=== PATIENT | female | born 1945 | race Caucasian/White ===

== ENCOUNTER → 2021-05-03 19:36 | Outpatient (CLI) | payer MEDICARE, SELFPAY | PROVIDERS: PCP Internal Medicine; Referring Provider Psychiatry & Neurology Sleep Medicine; Visit Provider Psychiatry & Neurology Sleep Medicine | DX: G47.33 Obstructive sleep apnea (adult) (pediatric) (principal) | CPT/HCPCS: 95810 ==

== ENCOUNTER → 2021-10-21 | Outpatient (CLI) | payer MEDICARE, SELFPAY ==
[2021-10-21 17:03] LABS: Absolute Neutrophil Count 5.1 X10^3/uL (2.0-7.7); Basophil# 0.02 X10^3/uL; Basophil% 0.2 % (0-1); Eosinophil# 0.18 X10^3/uL; Eosinophils% 2.2 % (0-5); Hematocrit 41.9 % (37-47); Hemoglobin 13.7 g/dL (12.0-15.0); Lymphocyte % 26.2 % (19-41); Mean Corp Hgb Conc 32.7 g/dL (32-36); Mean Corpuscular Hgb 29.4 pg (27.0-32.0); Mean Corpuscular Volume 89.9 fL (81-99); Mean Platelet Vol. 9.7 fl (6.2-12.0); Monocyte% 7.5 % (0-10); NRBC Flagged by Analyzer 0 % (0-5); Neutrophil # 5.11 X10^3/uL (2.7-7.7); Neutrophil % 63.7 % (47-70); Platelet Count 308 K/mm3 (150-450); RBC Distribution Width CV 13.6 % (11.6-14.6); RBC Distribution Width SD 44.4 fl (35.1-43.9); Red Blood Count 4.66 M/mm3 (4.2-5.4)
[2021-10-21 17:08] LABS: Prothrombin Time (Protime)PT. 12.6 SECONDS (11.7-14.9)
[2021-10-21 17:09] LABS: Erythrocyte Sedimentation Rate 15 mm/hr (0-30)
[2021-10-21 17:21] LABS: Hemoglobin A1c 5.6 % (3.8-5.6)
[2021-10-21 17:32] LABS: AST(SGOT) 16 U/L (15-37); Alanine Aminotransfer ALT/SGPT 25 U/L (13-56); Albumin, Serum 3.6 g/dL (3.2-5.0); Alkaline Phosphatase 93 U/L (45-117); Anion Gap 2 (5-15); BUN 13 mg/dL (7-18); BUN/Creat Ratio 14.3 RATIO (10-20); CRP 4.64 mg/L (0.0-3.0); Calcium,Total 9.1 mg/dL (8.5-10.1); Chloride 105 mmol/L (98-107); Creatinine, Serum 0.91 mg/dL (0.55-1.02); EST Glomerular Filtration Rate 64 mL/min (>60); Est Glom Filt Rate - Afr Amer 77 mL/min (>60); Ferritin 36 ng/mL (8-252); Globulin 3.6 g/dL (2.2-4.2); Glucose 98 mg/dL (74-106); LDH 183 U/L (84-246); Potassium 4.3 mmol/L (3.5-5.1); Protein, Total 7.2 g/dL (6.4-8.2); Sodium Level 138 mmol/L (136-145)
[2021-10-21 17:33] LABS: Ammonia < 10.0 umol/L (11-32)
[2021-10-22 00:07] LABS: HIV - WCH Non-Reactive (Nonreactive)
[2021-10-25 13:07] LABS: Anti-Centromere B Ab <0.2 AI (0.0-0.9); Anti-Chromatin <0.2 AI (0.0-0.9); Anti-Jo <0.2 AI (0.0-0.9); Anti-Scleroderma-70 AB <0.2 AI (0.0-0.9); RNP Ab 0.4 AI (0.0-0.9); SJOGREN'S Anti-SS-A test < 0.2 AI (0.0-0.9); SJOGREN'S Anti-SS-B test < 0.2 AI (0.0-0.9); Smith Ab <0.2 AI (0.0-0.9)
[2021-10-25 20:03] LABS: Anti-Mitochondrial AB <20.0 Units (0.0-20.0); Anti-dsDNA Ab <1 IU/mL (0-9)
[2021-10-26 21:07] LABS: Angiotensin Convert Enzyme 39 U/L (14-82); Ceruloplasmin 30.2 mg/dL (19.0-39.0); Cytoplasmic Ab (C-ANCA) <1:20 titer (Neg:<1:20); HEPATITIS B SURFACE AG Negative (Negative); Hep C Antibodies <0.1 s/co ratio (0.0-0.9); Hepatitis A IgM Antibody Negative (Negative); Hepatitis B Core AB IgM Negative (Negative)
[2021-10-27 10:53] LABS: Anti-Smooth Muscle ABS 5 Units (0-19); Copper, Serum or Plasma 134 ug/dL (80-158); Haptoglobin 181 mg/dL (42-346); Perinuclear Ab (P-ANCA) <1:20 titer (Neg:<1:20)
== END | disposition home or self-care (01) ==
LOC: LAB 16:24
PROVIDERS: PCP Internal Medicine; Referring Provider Nurse Practitioner Adult Health; Visit Provider Nurse Practitioner Adult Health
DX: I85.00 Esophageal varices without bleeding (principal); E11.51 Type 2 diabetes mellitus with diabetic peripheral angiopathy without gangrene; I73.9 Peripheral vascular disease, unspecified; K76.0 Fatty (change of) liver, not elsewhere classified; I10 Essential (primary) hypertension; R19.7 Diarrhea, unspecified
CPT/HCPCS: 36415; 80053; 80074; 82140; 82164; 82390; 82525; 82728; 83010; 83036; 83516; 83615; 85025; 85610; 85652; 86140; 86225; 86235; 86256; 86703

== ENCOUNTER → 2021-10-29 | Outpatient (CLI) | payer MEDICARE, SELFPAY ==
--- NOTE | 2021-10-29 12:30 | CT_ITS ---
STUDY: CT ABDOMEN AND PELVIS WITH CONTRAST REASON FOR EXAM: Female, 76 years old. Lower abd pain, esophageal varices, diarrhea -- oral and IV RADIATION DOSAGE (If Supplied By Facility): CTDIvol = ( 16.45 ) mGy, DLP = ( 1010.70 ) mGycm TECHNIQUE: Transaxial images were obtained from the dome of the diaphragm to the symphysis pubis with oral contrast. Oral and amp; IV Readi-CAT and amp; 75mL Isovue-300 was administered. Sagittal and coronal images were reconstructed. Individualized dose optimization techniques were used for this CT. COMPARISON: None. FINDINGS: The visualized lung bases are unremarkable. Coronary artery calcification. Normal liver. The patient is status post cholecystectomy. There is a 1.1 cm x 1.6 cm splenic artery aneurysm with thick calcification. Normal spleen. There is diffuse atrophy of the pancreas. Normal bilateral adrenal glands. Normal right kidney. Normal left kidney. There is a small hiatal hernia. Normal small intestine. Normal colon. The appendix is visualized and appears normal. There is diffuse atherosclerotic calcification of the abdominal aorta and its major visceral branches, without a demonstrated aneurysm. Normal inferior vena cava. Normal retroperitoneum. Normal urinary bladder. There is absence of the uterus consistent with a prior hysterectomy. Normal abdominal wall. There are mild degenerative changes of the visualized lumbar spine. CT/Abdomen/Pelvis WITH Contrast IMPRESSION: Calcified splenic artery aneurysm. No varices are seen at this time. Electronically Signed: Virgilio Acuna MD at 13:48 EDT ,
== END | disposition home or self-care (01) ==
LOC: CT 12:29
PROVIDERS: PCP Internal Medicine; Referring Provider Nurse Practitioner Adult Health; Visit Provider Nurse Practitioner Adult Health
DX: R10.30 Lower abdominal pain, unspecified (principal); R68.81 Early satiety; R19.7 Diarrhea, unspecified
CPT/HCPCS: 74177; Q9967; A4216

== ENCOUNTER → 2021-11-09 | Outpatient (CLI) | payer MEDICARE, SELFPAY ==
--- NOTE | 2021-11-09 11:48 | NM_ITS ---
Gastric emptying study INDICATION: Early satiety, diabetes. TECHNIQUE: After the administration 1.1 mCi of technetium sulfur colloid in a meal of oatmeal orally, multiple scintigraphic images of the abdomen were obtained. Furthermore, counts were obtained in the gastric emptying curve was plotted. FINDINGS: There is normal uptake within the stomach and passes through the duodenum into the small bowel. After 1 hour, there is 55% gastric retention which is normal. T1 half is 62 minutes which is normal. NM/Gastric Emptying Study IMPRESSION: Normal gastric emptying. Electronically Signed: Luis Hernandez MD at 9:05 EDT ,
== END | disposition home or self-care (01) ==
LOC: NM 11:47
PROVIDERS: PCP Internal Medicine; Referring Provider Nurse Practitioner Adult Health; Visit Provider Nurse Practitioner Adult Health
DX: R10.30 Lower abdominal pain, unspecified (principal); R68.81 Early satiety
CPT/HCPCS: 78264; A9541

== ENCOUNTER → 2021-11-10 | Outpatient (CLI) | payer MEDICARE, SELFPAY ==
--- NOTE | 2021-11-10 09:13 | US_ITS ---
STUDY: ABDOMINAL ULTRASOUND - ELASTOGRAPHY REASON FOR VISIT: Female, 76 years old. Esophageal varices. TECHNIQUE: Liver stiffness measurements were obtained on a [employer] RS 85 ultrasound machine using a CA 1-7 probe following the SRU guidelines. 3 measurements were obtained using a 2-D-SWE method. The IQR/M was 11% suggesting a quality data set. TECHNICAL QUALITY: Adequate. COMPARISON: Comparison is made with prior study done earlier today. FINDINGS: Liver: There is no demonstrated mass lesion. Median liver stiffness measured 12.2 kPa. US/Elastography Parenchyma/Organ IMPRESSION: Liver stiffness measures 12.2 kPa compatible with F3-F4 (Moderate to severe liver fibrosis) Metavir score. Electronically Signed: Virgilio Acuna MD at 15:46 EDT ,
--- NOTE | 2021-11-10 09:13 | US_ITS ---
STUDY: ABDOMINAL ULTRASOUND - RIGHT UPPER QUADRANT REASON FOR VISIT: Female, 76 years old for elastography, esophageal varices on EGD TECHNIQUE: Ultrasound evaluation of the right upper quadrant was performed with real-time and static dougherty-scale imaging. TECHNICAL QUALITY: Adequate. COMPARISON: None. FINDINGS: Liver: The liver measures 15.2 cm. There is normal echogenicity of the liver. The bile ducts are within normal limits. There is hepatic color flow. The direction of portal flow is hepatopetal. There is no demonstrated mass lesion. Gallbladder: The patient is status post cholecystectomy. Common Bile Duct (C.B.D.): The common bile duct measures 5.6 mm. Pancreas: Normal size of the head, body and tail of the pancreas. There is increased echogenicity of the pancreas. There is no demonstrated pancreatic mass or cyst. Right Kidney: Normal size of the right kidney. The right kidney measures 11.2 cm x 5.5 cm x 4.5 cm. Normal renal cortex. The right cortex measures 1.0 cm. There is no demonstrated renal mass or cyst. There is no right hydronephrosis. Small amount of perinephric fluid. US/Abdomen Limited IMPRESSION: Status post cholecystectomy. Electronically Signed: Virgilio Acuna MD at 15:45 EDT ,
== END | disposition home or self-care (01) ==
LOC: US 09:09
PROVIDERS: PCP Internal Medicine; Visit Provider Nurse Practitioner Adult Health
DX: K76.0 Fatty (change of) liver, not elsewhere classified (principal); I85.00 Esophageal varices without bleeding
CPT/HCPCS: 76705; 76981

== ENCOUNTER → 2021-11-30 | Outpatient (CLI) | payer MEDICARE, SELFPAY ==
--- NOTE | 2021-11-30 07:17 | CT_ITS ---
STUDY: CT CHEST WITH CONTRAST REASON FOR EXAM: Female, 76 years old. Esophageal varices. Hypertension. RADIATION DOSAGE (If Supplied By Facility): CTDIvol = ( 11.52 ) mGy, DLP = ( 436.16 ) mGycm TECHNIQUE: Transaxial imaging was performed following intravenous administration of IV 100mL Isovue-300. Multiplanar coronal and sagittal images were reformatted. Individualized dose optimization techniques were used for this CT. COMPARISON: No relevant priors. FINDINGS: CHEST A 4.8 mm hypodensity in the lower pole left lobe of the thyroid. The lungs are normal. There is no demonstrated pleural abnormality. There are calcifications of the coronary arteries. Normal mediastinum. Normal hilar regions. Normal unenhanced pulmonary arteries. Normal aorta arch and descending thoracic aorta. There are multi-level degenerative changes of the thoracic spine. There is no demonstrated abnormality of the visualized upper abdomen. CT/Chest WITH Contrast IMPRESSION: No significant abnormality is seen. Electronically Signed: Virgilio Acuna MD at 9:33 EDT ,
[2021-11-30 07:51] LABS: CREATININE FINGERSTICK < 0.9 mg/dL (0.55-1.02); EGFR FINGERSTICK > 60.0000 mL/min (>60)
== END | disposition home or self-care (01) ==
LOC: CT 07:17
PROVIDERS: PCP Internal Medicine; Referring Provider Nurse Practitioner Adult Health; Visit Provider Nurse Practitioner Adult Health
DX: I85.00 Esophageal varices without bleeding (principal)
CPT/HCPCS: 71260; Q9967

== ENCOUNTER 2021-12-01 06:29 | Day surgery (SDC) | payer MEDICARE, SELFPAY ==
[2021-12-01] VITALS (7 sets, daily range): BP systolic 130–162; BP diastolic 58–89; PULSE 61–66; RESP 16; TEMP 36.3–36.7; O2SAT 92–97; BMI 34.4
--- NOTE | 2021-12-01 | ESO_PTH ---
PATIENT: NERI GUILLEN LOC: EN U#:[id number] AGE/SX: 76/F ROOM: RE12/01/[address]: Dr. Chucho Carlin DO : 1945 BED: DIS: 12/01/2021 SPEC #: [id number] RECD: 12/01/21 13:23 STATUS: OMAR PARVIN #: [id number] HEATHER: 12/01/21 00:[address]: Chucho Carlin DEPT: SURGICAL PATHOLOGY RECD BY: Isaias Veras ENTERED: 12/02/21 09:33 SP TYPE: JAVIER LEPE DR: MD Daysi Dee MD Tissues: Esophagus, NOS Procedures: Special Stain Group II Surgery Specimen Level IV Alcian Blue/PAS (control) HEADER OPERATION: EGD ([facility] [place]) PRE-OP DIAGNOSIS: Early satiety, lower abdominal pain, diarrhea, fatty liver, esophageal varices TISSUE SUBMITTED: Distal esophageal biopsy MICROSCOPIC DIAGNOSIS Distal esophagus, biopsy: Gastroesophageal junctional mucosa with mild chronic inflammation. No evidence of goblet cell metaplasia. See comment. AM:penny 12/03/2021 COMMENT Alcian blue/PAS stain with matched control supports the above diagnosis. MICROSCOPIC DESCRIPTION Slides are reviewed. GROSS DESCRIPTION Received in fixative is one container labeled with the patient's name and designated distal esophagus. The specimen consists of two irregular fragments of light adame soft tissue that in aggregate measure 0.5 x 0.5 x 0.1 cm. The specimen is totally submitted in one cassette. / AM:penny 12/02/2021 TC:3 CPT: 48336, 89789
[2021-12-01] MEDS: Lactated Ringers 1,000 ML 15 ML IV (07:06)
--- NOTE | 2021-12-01 07:31 | PCM.HP.BLA ---
History and Physical Date of Admission: 12/01/21 NERI GUILLEN, is a 76 F who presents to the office today for esophageal varices found on EGD by [facility] general surgeon Dr Moody on 07/07/2021.? EGD was done on 4 chronic GERD.? She also had screening colonoscopy as a 5-year follow-up for colon polyps.? No prior history of esophageal varices.? No history of liver disease. EGD report states normal first portion of the duodenum and second portion of the duodenum, erythematous mucosa in the antrum which was biopsied, Z-line irregular which was biopsied, and grade 1 esophageal varices in the mid esophagus.? I do not have biopsy report at this time.? Colonoscopy P prep was poor, nonbleeding internal and external hemorrhoids. Since the EGD she has had abd US done at [facility], it shows fatty liver, no splenomegaly She has multiple GI complaints at this time. Very long hx of GERD. She has been omeprazole x decades, takes it bid. Stomach contents come all the way up, especially when she lies down. Doesn't like any pressure on her throat, or feels like she is being choked. Metallic taste in mouth. Voice is raspy, can't sing soprano any longer. Has a chronic cough, dry or sometimes mucus. Gets sinus drainage. Has allergies. Gets substernal CP frequently as well as RUQ pain. Wakes up nausea every day, goes away once she starts eating. Hasn't had a gastric emptying study. She burps a lot. Has diagnosis of IBS. Severe cramping pain, across lower abd, every 2-3 days, resolves after BM, or resolves spontaneously, started in her 30s. Hasn't tried dicyclomine that she recalls. Currently has to strain to have BM. But normally has stools that are watery or loose. Can be after she eats, can be urgent. No melena or hematochezia. 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 Comorbidities include RA, psoriasis, fibromyalgia, GERD, HTN, migraines, hyperlipidemia, DM2, obesity, PVD. PSH includes cholecystectomy, appy, hyspterectomy. 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 Applications Scientist Dr Bose prescribed Tremfya for psoriasis. ROS Const Constitutional: Positive for fatigue ENT ENT: No difficulty swallowing Cardio Cardiology: Positive for leg pain with exertion Gastro GI: Positive for abdominal pain, bloating, change in bowel habits, constipation, heartburn, excessive flatus and nausea/dyspepsia; No belching, change in stool character, coffee ground emesis, cramping, diarrhea, difficulty swallowing, feeling full early, incontinent of stools, Vomiting blood/hematemesis, Blood in stool, loose stools, Black,tarry stools, pain with swallowing, vomiting or other Musc Musculoskeletal: Positive for joint pain, back pain, joint swelling, muscle cramps, muscle weakness, stiffness, Arthritis, sciatica, leg pain at night and leg pain with exertion Skin Skin: No yellowing of the eye or itchy eyes Psych Psychiatric: Positive for anxiety and No depression Endo Endocrine: Positive for fatigue Aller/Imm Allergy/Immunologic: No itchy eyes Wagner/Lymp Hematologic/Lymphatic: Positive for easy bruising; No easy bleeding Exam Const General: cooperative, comfortable, well developed and well groomed Nutritional Appearance: obese Eyes General: appearance normal, both eyes and all related structures Resp Effort & Inspection: normal respiratory effort GI Inspection: obesity Auscultation: normal bowel sounds Palpation: soft, no hepatosplenomegaly, no masses and tender in the LLQ and in the RLQ Skin General: other (psoriasis) Neuro General: patient alert, patient awake and patient oriented x3 Psych Mood: euthymic mood Affect: normal affect Quality Reporting Tobacco Screening ([facility] 138) Smoking Status: Never smoker Assessment and Plan Assessment and Plan (1) Early satiety: ?Status:?Acute (2) Lower abdominal pain: ?Status:?Acute (3) Diarrhea: ?Status:?Acute (4) Fatty liver: ?Status:?Acute (5) Esophageal varices: ?Status:?Acute ? ? ? Orders:?Orders: ? Gastric Emptying Study 10/21/21 R68.81, R10.30 ? ? Abdomen/Pelvis WITH Contrast 10/21/21 R68.81, R10.30, R19.7 ? ? Hepatitis Panel Acute 10/21/21 R10.30, K76.0, I85.00 ? ? HIV - [facility] 10/21/21 R19.7, K76.0, I85.00 ? ? Comprehensive Metabolic Profil 10/21/21 K76.0, I85.00 ? ? CRP 10/21/21 K76.0, I85.00 ? ? Ferritin 10/21/21 K76.0, I85.00 ? ? LDH 10/21/21 K76.0, I85.00 ? ? Hemoglobin A1c 10/21/21 K76.0, I85.00 ? ? Prothrombin Time w/INR 10/21/21 K76.0, I85.00 ? ? CBC W/Diff, Automated 10/21/21 K76.0, I85.00 ? ? Erythrocyte Sed Rate 10/21/21 K76.0, I85.00 ? ? Anti-Mitochondrial AB 10/21/21 K76.0, I85.00 ? ? FELECIA Comprehensive Panel 10/21/21 K76.0, I85.00 ? ? Angiotensin Convert Enzyme 10/21/21 K76.0, I85.00 ? ? ANCA 10/21/21 K76.0, I85.00 ? ? Anti-Smooth Muscle ABS 10/21/21 K76.0, I85.00 ? ? Ceruloplasmin 10/21/21 K76.0, I85.00 ? ? Copper, Serum or Plasma 10/21/21 K76.0, I85.00 ? ? Haptoglobin 10/21/21 K76.0, I85.00 ? ? Ammonia 10/21/21 K76.0, I85.00 ? ? Abdomen Limited 10/21/21 K76.0, I85.00 ? ? Elastography Parenchyma/Organ 10/21/21 K76.0, I85.00 ?Plan - Mallory Delgado OUTDOOR ILLUMINATING ENGINEER, OUTDOOR ILLUMINATING ENGINEER-C: --76 yr old female with recent finding of esophageal varices. Very long discussion with pt and her re varices, possible GI causes, the w/u involved. Also long discussion of her other GI concerns/diagnoses. If she does have mid esophageal varices then likely not related to liver. Consider cardiac or other etiology. Will w/u her liver, especially considering fatty liver comorbid with DM, obesity, hyperlipidemia. Biochemical w/u. Liver elastography. Will schedule her for EGD with Dr Carlin, that will be 6 mo following her last EGD. --Gastric emptying study to eval for possible gastroparesis in the setting of DM2, c/o chronic nausea --For IBS, we may consider dicyclomine or hyoscyamine --Will get CT abd pel w/ oral and IV as part of w/u for ascites, as well as chronic nausea, chronic lower abd pain, change in stools --f/u 6 wks, as well as 2 wks following EGD I have re-examined the patient. There are no clinical changes since date of exam.
--- NOTE | 2021-12-01 08:39 | OP.EGD_ITS ---
Patient Name: Gabby Mccormick Procedure Date: 12/01/2021 8:09 AM Date of : 1945 Age: 76 Procedure: Upper GI endoscopy Indications: Portal hypertension with UGI bleeding rule out esophageal varices Providers: Chucho Carlin DO Referring MD: Daysi Montejo Md Medicines: Monitored Anesthesia Care Patient Profile: This is a 76 year old female. Refer to note in patient chart for documentation of history and physical. Patient has symptoms. Complications: No immediate complications. Procedure: Pre-Anesthesia Assessment: - Prior to the procedure, a History and Physical was performed, and patient medications and allergies were reviewed. The patient is competent. The risks and benefits of the procedure and the sedation options and risks were discussed with the patient. All questions were answered and informed consent was obtained. Patient identification and proposed procedure were verified in the pre-procedure area. Mental Status Examination: alert and oriented. Airway Examination: normal oropharyngeal airway and neck mobility. Respiratory Examination: clear to auscultation. CV Examination: normal. Prophylactic Antibiotics: The patient does not require prophylactic antibiotics. Prior Anticoagulants: The patient has taken no previous anticoagulant or antiplatelet agents. After reviewing the risks and benefits, the patient was deemed in satisfactory condition to undergo the procedure. The anesthesia plan was to use moderate sedation / analgesia (conscious sedation). Immediately prior to administration of medications, the patient was re-assessed for adequacy to receive sedatives. The heart rate, respiratory rate, oxygen saturations, blood pressure, adequacy of pulmonary ventilation, and response to care were monitored throughout the procedure. The physical status of the patient was re-assessed after the procedure. After obtaining informed consent, the endoscope was passed under direct vision. Throughout the procedure, the patient's blood pressure, pulse, and oxygen saturations were monitored continuously. The Endoscope was introduced through the mouth, and advanced to the second part of duodenum. The upper GI endoscopy was accomplished without difficulty. The patient tolerated the procedure well. Scope In: 8:20:51 AM Scope Out: 8:24:36 AM Total Procedure Duration Time 0 hours 3 minutes 45 seconds Findings: Grade I varices were found in the upper third of the esophagus. They were 3 mm in largest diameter. The Z-line was irregular and was found 37 cm from the incisors. Biopsies were taken with a cold forceps for histology. Verification of patient identification for the specimen was done. Estimated blood loss was minimal. A medium amount of a phytobezoar was found in the gastric body. The duodenal bulb was normal. Impression: - Grade I esophageal varices. - Z-line irregular, 37 cm from the incisors. Biopsied. - A medium amount of a phytobezoar in the stomach. - Normal duodenal bulb. Recommendation: - Discharge patient to home. - Resume previous diet. - Continue present medications. - Await pathology results. -Thrombosis of the SVC is the most common etiology of downhill esophageal varices, but obstruction of the SVC can also be caused by severe pulmonary hypertension, thyroid tumors, Beh???et???s disease, abnormal cricopharyngeal muscle constriction, complications with HD catheters, mediastinal fibrosis, and surgical ligation of the SVC. Bleeding is a very rare presenting symptom for patients with downhill varices. In fact, downhill varices represent 0.4???10% of esophageal varices but less than 0.1% of patients presenting with hematemesis. This may be attributed to the fact that downhill varices are located in the submucosa of the proximal esophagus, which are less susceptible to bleeding than uphill varices secondary to portal hypertension, which are located in the superficial subepithelium of the distal esophagus. Decreased gastric acid exposure may also contribute to the lower bleeding frequency of proximal esophageal varices Procedure Code(s): --- Professional --- 42736, Esophagogastroduodenoscopy, flexible, transoral; with biopsy, single or multiple CPT copyright 2017 [employer]. All rights reserved. The codes documented in this report are preliminary and upon production director review may be revised to meet current compliance requirements. Chucho Carlin DO 12/01/2021 8:39:15 AM This report has been signed electronically. Number of Addenda: 1 Note Initiated On: 12/01/2021 8:09 AM Addendum Number: 1 Addendum Date: 02/16/2022 6:15:59 AM MAC was used as sedation for this procedure. Chucho Carlin DO 02/16/2022 6:16:03 AM This report has been signed electronically.
--- NOTE | 2021-12-01 08:41 | OP.CCLET_ITS ---
02/16/2022 Daysi Montejo [address] [place] [address] Re : Upper GI endoscopy procedure for Gabby Mccormick Dear Dr. Montejo This procedure was performed on Wednesday, December 01, 2021. My impressions and recommendations are as follows: Impressions : - Grade I esophageal varices. - Z-line irregular, 37 cm from the incisors. Biopsied. - A medium amount of a phytobezoar in the stomach. - Normal duodenal bulb. Recommendations : - Discharge patient to home. - Resume previous diet. - Continue present medications. - Await pathology results. -Thrombosis of the SVC is the most common etiology of downhill esophageal varices, but obstruction of the SVC can also be caused by severe pulmonary hypertension, thyroid tumors, Beh?et?s disease, abnormal cricopharyngeal muscle constriction, complications with HD catheters, mediastinal fibrosis, and surgical ligation of the SVC. Bleeding is a very rare presenting symptom for patients with downhill varices. In fact, downhill varices represent 0.4?10% of esophageal varices but less than 0.1% of patients presenting with hematemesis. This may be attributed to the fact that downhill varices are located in the submucosa of the proximal esophagus, which are less susceptible to bleeding than uphill varices secondary to portal hypertension, which are located in the superficial subepithelium of the distal esophagus. Decreased gastric acid exposure may also contribute to the lower bleeding frequency of proximal esophageal varices My findings are described in the full procedure note, which is enclosed. If I can be of further assistance, please feel free to contact me at . Sincerely, Chucho Carlin, 12/01/2021 8:39:15 AM This report has been signed electronically.
[2021-12-01 09:30] LABS: Bedside Glucose 104 mg/dL (74-106)
== END 2021-12-01 09:13 | disposition home or self-care (01) ==
LOC: EN 06:29 → AC 06:30
PROVIDERS: PCP Internal Medicine; Referring Provider Internal Medicine; Visit Provider Internal Medicine Gastroenterology
PROC: 0DJ08ZZ Inspection of Upper Intestinal Tract, Via Natural or Artificial Opening Endoscopic (ICD-10-PCS; CPT 43235; principal; 2021-12-01 07:55)
DX: K21.00 Gastro-esophageal reflux disease with esophagitis, without bleeding (principal); I85.00 Esophageal varices without bleeding; E11.9 Type 2 diabetes mellitus without complications; T18.2XXA Foreign body in stomach, initial encounter; K76.0 Fatty (change of) liver, not elsewhere classified; E66.9 Obesity, unspecified; I10 Essential (primary) hypertension; I25.10 Atherosclerotic heart disease of native coronary artery without angina pectoris; F32.A Depression, unspecified; Z86.73 Personal history of transient ischemic attack (TIA), and cerebral infarction without residual deficits; Z79.899 Other long term (current) drug therapy; Z79.84 Long term (current) use of oral hypoglycemic drugs; Z68.34 Body mass index [BMI] 34.0-34.9, adult; X58.XXXA Exposure to other specified factors, initial encounter
CPT/HCPCS: 43239; 82962; 88305; 88313; J7120; J2405

== ENCOUNTER → 2022-07-08 | Outpatient (CLI) | payer MEDICARE, SELFPAY ==
--- NOTE | 2022-07-08 07:29 | US_ITS ---
STUDY: ABDOMINAL ULTRASOUND - RIGHT UPPER QUADRANT REASON FOR VISIT: Female, 77 years old fatty liver TECHNIQUE: Ultrasound evaluation of the right upper quadrant was performed with real-time and static dougherty-scale imaging. TECHNICAL QUALITY: Adequate. COMPARISON: Comparison is made with prior study dated 11/10/2021. FINDINGS: Liver: The liver measures 14.9 cm. There is normal echogenicity of the liver. The bile ducts are within normal limits. There is hepatic color flow. The direction of portal flow is hepatopetal. There is no demonstrated mass lesion. Gallbladder: The patient is status post cholecystectomy. Common Bile Duct (C.B.D.): The common bile duct measures 5.1 mm. Pancreas: There is nonvisualization of the pancreas due to overlying bowel gas. Right Kidney: Normal size of the right kidney. The right kidney measures 10 cm x 4.3 cm x 4.8 cm. Normal renal cortex. The right cortex measures 1.6 cm. There is no demonstrated renal mass or cyst. There is no right hydronephrosis. US/Abdomen Limited IMPRESSION: Status post cholecystectomy. No acute abnormality is seen. Electronically Signed: Virgilio Acuna MD at 13:21 EST ,
--- NOTE | 2022-07-08 07:40 | US_ITS ---
STUDY: ABDOMINAL ULTRASOUND - ELASTOGRAPHY REASON FOR VISIT: Female, 77 years old. Fatty attrition of the liver. TECHNIQUE: Liver stiffness measurements were obtained on a [employer] RS 85 ultrasound machine using a CA 1-7 probe following the SRU guidelines. 3 measurements were obtained using a 2-D-SWE method. The IQR/M was 20 % suggesting a quality data set. TECHNICAL QUALITY: Adequate. COMPARISON: Comparison is made with prior examination dated 11/10/2021. FINDINGS: Liver: There is no demonstrated mass lesion. Median liver stiffness measured 12 kPa. US/Elastography Parenchyma/Organ IMPRESSION: Liver stiffness measures 12 kPa compatible with F2-F3 (Mild to moderate liver fibrosis) Metavir score. Electronically Signed: Virgilio Acuna MD at 13:23 EST ,
== END | disposition home or self-care (01) ==
LOC: US 07:27
PROVIDERS: PCP Internal Medicine; Referring Provider Nurse Practitioner Adult Health; Visit Provider Nurse Practitioner Adult Health
DX: K76.0 Fatty (change of) liver, not elsewhere classified (principal)
CPT/HCPCS: 76705; 76981

== ENCOUNTER → 2024-01-09 | Outpatient (CLI) | payer OTHER, SELFPAY ==
--- NOTE | 2024-01-09 09:15 | US_ITS ---
STUDY: ABDOMINAL ULTRASOUND - RIGHT UPPER QUADRANT; ELASTOGRAPHY REASON FOR VISIT: Female, 78 years old. Fatty infiltration of the liver. TECHNIQUE: Ultrasound evaluation of the right upper quadrant was performed with real-time and static dougherty-scale imaging. Point quantification shear wave elastography was performed ([email or web address]). TECHNICAL QUALITY: Adequate. COMPARISON: Comparison is made with prior study dated July 08, 2022. FINDINGS: Liver: The liver measures 15.5 cm. There is normal echogenicity of the liver. The bile ducts are within normal limits. There is hepatic color flow. The direction of portal flow is hepatopetal. There is no demonstrated mass lesion. Median liver stiffness measured 12.9 kPa. Gallbladder: The patient is status post cholecystectomy. Common Bile Duct (C.B.D.): The common bile duct measures 3.5 mm. Pancreas: Limited visualization due to overlying bowel gas. Right Kidney: Normal size of the right kidney. The right kidney measures 10 cm x 4.3 cm x 4.7 cm. Normal renal cortex. The right cortex measures 1.0 cm. There is no demonstrated renal mass or cyst. There is no right hydronephrosis. US/ABD Limited w/ Elastography IMPRESSION: 1. Liver stiffness measures 12.9 kPa compatible with F3-F4 (Moderate to severe liver fibrosis) Metavir score. 2. Status post cholecystectomy. Electronically Signed: Virgilio Acuna MD at 14:46 EDT ,
== END | disposition home or self-care (01) ==
LOC: US 09:14
PROVIDERS: PCP Internal Medicine; Referring Provider Student in an Organized Health Care Education/Training Program; Visit Provider Student in an Organized Health Care Education/Training Program
DX: K76.0 Fatty (change of) liver, not elsewhere classified (principal)
CPT/HCPCS: 76705; 76981

== ENCOUNTER → 2024-12-03 | Outpatient (CLI) | payer MEDICARE, SELFPAY ==
--- NOTE | 2024-12-03 08:07 | US_ITS ---
PROCEDURE: ABD LIMITED W/ ELASTOGRAPHY REASON FOR EXAM: FATTY LIVER COMPARISON: Abdominal ultrasound 01/09/2024. TECHNIQUE: Right upper quadrant abdominal ultrasound. [facility] ElastQ Imaging shear wave elastography for non-invasive assessment of liver tissue stiffness. [facility] EPIQ Elite. FINDINGS: LIVER: Size: Normal in size and echogenicity, measuring 14.8 cm. The bile ducts are within normal limits. The major portal vein is patent with normal directional flow at midline. Contour: Normal Lesions: None identified Elastography: EQI Med: 16.0 kPa EQI Med Deniz: 2.3 m/s IQR/Med: 14.9/8.2 %* GALLBLADDER: Prior cholecystectomy. COMMON BILE DUCT: Normal measuring 0.4 cm. PANCREAS: Obscured by bowel gas. Visualized portions of the right kidney are unremarkable. No right upper quadrant ascites. US/ABD Limited w/ Elastography IMPRESSION: MODERATE TO SEVERE HEPATIC FIBROSIS. Metavir score of F3-F4, unchanged since p rior examination. Prior cholecystectomy. Reference Values: SRU <1.37 m/s (5.7kPa): No to mild fibrosis 1.37 m/s - 2.2 m/s: Moderate to severe fibrosis >2.2 m/s (15kPa): Significant fibrosis / cirrhosis METAVIR Score F2 or higher: 1.34 m/s (5.7kPa) F3 or higher: 1.55 m/s (7.3kPa) F4: 1.80 m/s (10kPa) * If the IQR/Med is >30%, the variance in the measurements is a large and the a ccuracy of the measurement may be in question. Reading Location: [id number]
== END | disposition home or self-care (01) ==
PROVIDERS: PCP Internal Medicine; Referring Provider Student in an Organized Health Care Education/Training Program; Visit Provider Student in an Organized Health Care Education/Training Program
DX: K76.0 Fatty (change of) liver, not elsewhere classified (principal)
CPT/HCPCS: 76705; 76981

== ENCOUNTER → 2024-12-31 | Outpatient (CLI) | payer MEDICARE, SELFPAY ==
[2024-12-31 12:58] LABS: Hematocrit 38.7 % (37-47); Hemoglobin 13.0 g/dL (12.0-15.0); Immature Granulocytes Count 0.020 X10^3/uL (0.0-0.0); Mean Corp Hgb Conc 33.6 g/dL (32-36); Mean Corpuscular Volume 90.8 fL (81-99); Mean Platelet Vol. 9.9 fl (6.2-12.0); NRBC Flagged by Analyzer 0 % (0-5); Platelet Count 280 K/mm3 (150-450); RBC Distribution Width CV 12.5 % (11.6-14.6); RBC Distribution Width SD 40.8 fl (35.1-43.9); Red Blood Count 4.26 M/mm3 (4.2-5.4); White Blood Count 5.7 K/mm3 (4.4-11.0)
[2024-12-31 13:12] LABS: Prothrombin Time (Protime)PT. 12.4 SECONDS (11.7-14.9)
[2024-12-31 13:54] LABS: AST(SGOT) 19 U/L (<=31); Alanine Aminotransfer ALT/SGPT 12 U/L (<=34); Albumin, Serum 4.0 g/dL (3.4-4.8); Alkaline Phosphatase 86 U/L (35-104); Anion Gap 10 (5-15); BUN 18 mg/dL (4-19); BUN/Creat Ratio 21.7 RATIO (10-20); Calcium,Total 9.9 mg/dL (7.6-11.0); Carbon Dioxide 27.2 mmol/L (21.0-32.0); Chloride 107 mmol/L (98-108); Globulin 2.6 g/dL (2.2-4.2); Glucose 86 mg/dL (70-99); Potassium 4.4 mmol/L (3.3-5.1)
== END | disposition home or self-care (01) ==
LOC: LAB 11:33
PROVIDERS: PCP Internal Medicine; Referring Provider Student in an Organized Health Care Education/Training Program; Visit Provider Student in an Organized Health Care Education/Training Program
DX: K76.0 Fatty (change of) liver, not elsewhere classified (principal)
CPT/HCPCS: 36415; 80053; 85025; 85610

== ENCOUNTER 2025-04-24 09:22 | Observation (INO) | payer MEDICARE, SELFPAY ==
[2025-04-24 09:22] VITALS: BP 113/79; PULSE 79; RESP 16; TEMP 36.6; O2SAT 100; BMI 28.0
--- NOTE | 2025-04-24 09:56 | RAD_ITS ---
PROCEDURE: CHEST 1 VIEW (PORTABLE) 04/24/2025 REASON FOR EXAM: COUGH TECHNIQUE: Frontal view of the chest. COMPARISON: November 30, 2021 FINDINGS: Hardware: EKG leads Heart: The heart size is normal. Lungs: The lungs are clear. Bones: The bones are unremarkable. RAD/Chest 1 View (Portable) IMPRESSION: No acute cardiopulmonary process Reading Location: [id number]
--- NOTE | 2025-04-24 10:36 | EX.ED.DYSGE1 ---
HPI History of Present Illness Chief Complaint: General Illness Informant: patient and spouse/S.O. Narrative Narrative: 79-year-old female presenting to the emergency room reporting not feeling well. Patient states that over the past several days she has had a cough that is nonproductive. She notes nausea diarrhea headache and bodyaches. Symptoms began on Monday. She notes diarrhea of up to 7 times per day. Describes it as yellow in nature. She has not felt short of breath. She took a COVID test at home that was negative. She states that today she feels globally fatigued. She went and saw a nurse practitioner at her doctor's office and was referred to emergency. Concern was for dehydration. According to their notes she was orthostatic. [facility] Medical History Wears hearing aid Wears partial dentures Wears dentures Cancer Depression Diabetes Low iron Fatty liver Back pain Migraine headache Injury of head and neck TIA (transient ischemic attack) Dietary restriction Difficulty swallowing History of ulceration History of IBS Non-smoker CPAP (continuous positive airway pressure) dependence Shortness of breath on exertion Leg cramps History of pain when walking History of edema History of echocardiogram History of stress test Cardiology follow-up encounter CAD (coronary artery disease) Hx of benign gastric tumor Psoriatic arthritis Hypertension FH: cholecystectomy Myalgia GERD (gastroesophageal reflux disease) Dyspareunia Arthritis Esophageal varices without bleeding Home Medications ?Medication ?Instructions ?Recorded ?Last Taken ?Type carvedilol 3.125 mg tablet 3.125 mg PO BID 09/14/21 Unknown History losartan 100 mg tablet 100 mg PO DAILY 09/14/21 Unknown History potassium chloride 10 mEq 10 meq PO DAILY 09/14/21 Unknown History capsule,extended release semaglutide 0.25 mg or 0.5 mg (2 0.25 mg subcut FR 09/14/21 Unknown History mg/1.5 mL) subcutaneous pen injector (Ozempic) resmetirom 80 mg tablet (Rezdiffra) 80 mg PO QDAY #30 tabs 12/31/24 Unknown Rx omeprazole 40 mg capsule,delayed 40 mg PO QDAY #90 caps 04/02/25 Unknown Rx release Allergy/AdvReac Type Severity Reaction Status Date / Time clarithromycin (From Biaxin) Allergy Rash Verified 04/24/25 09:23 [id number] Reductase AdvReac MUSCLE Verified 04/24/25 09:23 Inhibitor ACHES Surgical History History of lumpectomy of both breasts History of cardiac catheterization Hx of colonoscopy History of esophagogastroduodenoscopy (EGD) Hx of right cataract extraction Hx of left cataract extraction Hx of shoulder surgery Hx of arthroscopic knee surgery H/O: hysterectomy H/O adenoidectomy History of appendectomy Social History Smoking Status: Never smoker alcohol intake: never ROS ROS ED ROS Narrative Generalized weakness Constitutional Constitutional ED: Reports chills; Denies fever(s) or weight loss Eyes Eyes: Denies change in vision or diplopia ENT ENT ED: Reports rhinorrhea; Denies ear pain or sore throat Cardiovascular Cardiovascular: Denies chest pain, orthopnea, palpitations or racing heartbeat Respiratory/Chest Respiratory/Chest: Reports cough; Denies dyspnea or orthopnea Gastrointestinal Gastrointestinal: Reports diarrhea and nausea; Denies abdominal pain or vomiting Genitourinary Genitourinary ED: Denies dysuria, hematuria or urinary frequency Musculoskeletal Musculoskeletal: Denies arthralgias or myalgias Integumentary Denies abscess or rash Neurologic Neurologic: Denies headache(s) or weakness Psychiatric Psychiatric: Denies anxiety, depression, suicidal ideation or suicidal thoughts Endocrine Endocrinology: Denies polydipsia, polyphagia or polyuria Allergic/Immunologic Allergic/Immunologic ED: Denies mouth swelling, tongue swelling or urticaria EXAM Physical Exam Const Vital Signs: 04/24/25 09:22 04/24/25 11:11 04/24/25 12:20 Temperature 97.8 F Temperature Source Oral Pulse Rate 79 63 Respiratory Rate 16 14 Respiratory Pattern Normal Blood Pressure 113/79 112/43 L Blood Pressure Mean 90 66 Pulse Ox 100 100 Oxygen Delivery Method Room Air Room Air Positive well nourished and well developed General Appearance ED: well developed and NAD HEENT Reports normocephalic, head/scalp atraumatic and moist mucous membranes Eyes PERRL and EOMs intact bilaterally Neck no lymphadenopathy, supple and no JVD Resp normal respiratory effort and clear to auscultation bilaterally Resp Narrative: Dry cough Cardio regular rate, regular rhythm and no murmurs GI normal to inspection, nondistended, normoactive bowel sounds and non-tender Palpation: soft Back/Spine no CVA tenderness and normal ROM Extremity normal to inspection General Extremety ED: Negative for edema General Extremity: Negative for edema Neuro oriented x3 and CN's II-XII intact bilaterally Sensorium / Orientation: alert Motor Exam: strength 5/5 throughout Psych mental status grossly normal Mood & Affect: Negative for depressed or tearful Skin no rashes or lesions noted and no wounds MDM MDM MDM Narrative Medical decision making narrative: Differential diagnosis includes viral syndrome diarrhea dehydration electrolyte abnormalities hepatitis UTI acute kidney injury Basic blood work obtained shows white count 9.9 hemoglobin 10.9 platelet count of 274. Sodium 133 potassium 2.8 creatinine 1.08 with a BUN of 33 glucose is 138 slight elevation of her transaminases with an AST of 54 ALT 41 direct bilirubin 0.54 but total bilirubin is 0.91. Urinalysis demonstrates 10-25 white blood cells 2+ bacteria sent for culture. She received Rocephin and IV fluids. She also received IV and p.o. potassium. EKG shows a sinus bradycardia at a rate of 59. No significant widening of the QRS or QT interval. Patient's been unable to produce a diarrhea specimen for us. Plan of care is admission in the hospital. History & Record Review Discussion w/independent historian: Patient and Significant other Lab Data Attestation: I reviewed the patient's lab results. Labs: Laboratory Results - last 24 hr 04/24/25 11:00 WBC 9.9 RBC 3.67 L Hgb 10.9 L Hct 31.4 L MCV 85.6 MCH 29.7 MCHC 34.7 RDW Std Deviation 40.9 RDW Coeff of Jahaira 13.0 Plt Count 274 MPV 9.9 Immature Gran % (Auto) 0.900 Neut % (Auto) 67.6 Lymph % (Auto) 16.5 L Crane % (Auto) 14.1 H Eos % (Auto) 0.7 Baso % (Auto) 0.2 Absolute Neuts (auto) 6.7 Absolute Lymphs (auto) 1.64 Nucleated RBC % 0 Sodium 133 Potassium 2.8 L Chloride 96 L Carbon Dioxide 23.4 Anion Gap 14 BUN 33 H Creatinine 1.08 Estim Creat Clear Calc 35.57 L Est GFR (MDRD) Non-Af 52 L BUN/Creatinine Ratio 30.3 H Glucose 138 H Calcium 8.8 Total Bilirubin 0.91 Direct Bilirubin 0.54 H AST 54 H ALT 41 H Alkaline Phosphatase 204 H Total Protein 6.1 Albumin 3.0 L Globulin 3.1 Urine Color Yellow Urine Clarity Sl. Cloudy Urine pH 6.0 Ur Specific [place] 1.020 Urine Protein 30 H Urine Glucose (UA) Normal Urine Ketones Negative Urine Occult Blood 25 H Urine Nitrite Negative Urine Bilirubin Negative Urine Urobilinogen Normal Ur Leukocyte Esterase 500 H Urine RBC 0 SEEN Urine WBC 10-25 SEEN Ur Squamous Epith Cells 0-5 SEEN Urine Bacteria 2+ Urine Mucus 0 SEEN Radiography Diagnostic Testing: Clinical Impression(s) from Imaging Studies Chest X-Ray 04/24/25 09:56 IMPRESSION: No acute cardiopulmonary process Reading Location: [facility] Abdomen/Pelvis CT 04/24/25 11:51 IMPRESSION: 1. Calcified splenic aneurysm, unchanged. 2. Fluid-filled nondistended colon may related to recent diarrhea. Clinical correlation is recommended. No bowel obstruction or pneumoperitoneum. 3. Apparent wall thickening of the gastric antrum could be secondary to underdistention or gastritis. 4. Hepatomegaly with fatty infiltration. 5. Fecal retention in the colon consistent with constipation. 6. No obstructive uropathy. Reading [facility] EKG Initial EKG: Attestation: I personally reviewed and interpreted this EKG as follows: Comments: Sinus bradycardia ventricular to 59 bpm Discharge Plan Dx/Rx/DC Orders Clinical Impression: Diarrhea, Acute hypokalemia, Acute dehydration, UTI (urinary tract infection), Weakness Disposition Disposition: Acute Care Hospital [facility] Discharge Date/Time: 04/24/25 14:48
[2025-04-24] MEDS: 0.9% Normal Saline (1000mL) 1,000 ML 1000 ML IV (11:03)
[2025-04-24 11:20] LABS: Hematocrit 31.4 % (37-47); Hemoglobin 10.9 g/dL (12.0-15.0); Immature Granulocytes Count 0.090 X10^3/uL (0.0-0.0); Mean Corp Hgb Conc 34.7 g/dL (32-36); Mean Corpuscular Volume 85.6 fL (81-99); Mean Platelet Vol. 9.9 fl (6.2-12.0); NRBC Flagged by Analyzer 0 % (0-5); Platelet Count 274 K/mm3 (150-450); RBC Distribution Width CV 13.0 % (11.6-14.6); RBC Distribution Width SD 40.9 fl (35.1-43.9); Red Blood Count 3.67 M/mm3 (4.2-5.4); White Blood Count 9.9 K/mm3 (4.4-11.0)
[2025-04-24 11:41] LABS: Mucous, Urine 0 SEEN /hpf (<or=2+); Red Blood Cells-Urine 0 SEEN /hpf (0-5)
[2025-04-24 11:48] LABS: AST(SGOT) 54 U/L (<=31); Alanine Aminotransfer ALT/SGPT 41 U/L (<=34); Albumin, Serum 3.0 g/dL (3.4-4.8); Alkaline Phosphatase 204 U/L (35-104); Anion Gap 14 (5-15); BUN 33 mg/dL (4-19); BUN/Creat Ratio 30.3 RATIO (10-20); Bilirubin, Direct 0.54 mg/dL (0.00-0.30); Calcium,Total 8.8 mg/dL (7.6-11.0); Carbon Dioxide 23.4 mmol/L (21.0-32.0); Chloride 96 mmol/L (98-108); Estimated Creatinine Clearance 35.57 ml/min (50-250); Globulin 3.1 g/dL (2.2-4.2); Glucose 138 mg/dL (70-99); Potassium 2.8 mmol/L (3.3-5.1)
[2025-04-24 11:49] LABS: Color, Urine Yellow (Yellow); Glucose, Dipstick Normal (Normal); Ketone-Dipstick Negative (Negative); Leukocyte Esterase-Dipstick 500 /ul (Negative); Nitrite-Dipstick Negative (Negative); Occult Blood-Urine 25 /ul (Negative); Protein-Dipstick 30 mg/dl (Negative); Specific Gravity, Urine 1.020 (1.002-1.030); Urine Bilirubin Dipstick Negative (Negative)
--- NOTE | 2025-04-24 11:51 | CT_ITS ---
EXAM: CT Abdomen and Pelvis With Intravenous Contrast CLINICAL INDICATION: DIARRHEA ELEVATED LFTS TECHNIQUE: Axial computed tomography images of the abdomen and pelvis with intravenous contrast. This CT exam was performed using one or more of the following dose reduction techniques: automated exposure control, adjustment of the mA and/or kV according to patient size, and/or use of iterative reconstruction technique. CONTRAST: 89 cc Isovue 370 RADIATION DOSE: CTDIvol = 15.4 mGy, DLP = 746 0.0 mGy-cm COMPARISON: CT Abdomen Pelvis dated 10/29/2021 small hiatal FINDINGS: LUNG BASES: Unremarkable. No mass. No consolidation. ABDOMEN: LIVER: Hepatomegaly with fatty infiltration. GALLBLADDER AND BILE DUCTS: Unremarkable. No calcified stones. No ductal dilation. PANCREAS: Unremarkable. No mass. No ductal dilation. SPLEEN: Unremarkable. No splenomegaly. ADRENALS: Unremarkable. No mass. KIDNEYS AND URETERS: Unremarkable. No stones within either kidney. No hydronephrosis. STOMACH AND BOWEL: Fluid-filled nondistended colon may related to recent diarrhea. Clinical correlation is recommended. No bowel obstruction or pneumoperitoneum. Apparent wall thickening of the gastric antrum could be secondary to underdistention or gastritis. Fecal retention in the colon consistent with constipation. PELVIS: APPENDIX: No findings to suggest acute appendicitis. BLADDER: Unremarkable. No mass. REPRODUCTIVE: Unremarkable as visualized. ABDOMEN and PELVIS: INTRAPERITONEAL SPACE: See above. BONES/JOINTS: No acute fracture. No dislocation. SOFT TISSUES: Unremarkable. VASCULATURE: Calcified splenic aneurysm, unchanged. LYMPH NODES: Unremarkable. No enlarged lymph nodes. CT/Abdomen/Pelvis W IV Cont ONLY IMPRESSION: 1. Calcified splenic aneurysm, unchanged. 2. Fluid-filled nondistended colon may related to recent diarrhea. Clinical c orrelation is recommended. No bowel obstruction or pneumoperitoneum. 3. Apparent wall thickening of the gastric antrum could be secondary to underd istention or gastritis. 4. Hepatomegaly with fatty infiltration. 5. Fecal retention in the colon consistent with constipation. 6. No obstructive uropathy. Reading Location: [facility]
--- NOTE | 2025-04-24 11:51 | EKG12_ITS ---
Test Reason : Blood Pressure : */* mmHG Vent. Rate : 59 BPM Atrial Rate : 59 BPM P-R Int : 184 ms QRS Dur : 100 ms QT Int : 438 ms P-R-T Axes : 45 -28 43 degrees QTcB Int : 433 ms Sinus bradycardia Minimal voltage criteria for LVH, may be normal variant ( R in aVL ) Septal infarct , age undetermined Abnormal ECG Confirmed by SANDEEP GALLEGOS, JEN ([id number]), scientific publications editor NAHID BENAVIDEZ ([id number]) on 04/28/2025 6:27:50 AM Referred By: ESTUARDO Confirmed By: JEN HOPKINS MD
[2025-04-24 11:55] LABS: Squamous Epithelial Cells - UA 0-5 SEEN /hpf (5-10)
[2025-04-24] MEDS: Potassium Chloride 10mEq/100mL 10 MEQ/100 ML IV.SOLN. 100 MEQ IV BOLUS (12:16)
[2025-04-24] MEDS: Potassium Chloride Oral Tablet 20 MEQ 40 MEQ PO (12:16)
[2025-04-24 12:20] VITALS: BP 112/43; PULSE 63; RESP 14; O2SAT 100
--- NOTE | 2025-04-24 14:04 | HP.PCM.HOS_ITS ---
HPI - General General Date of Admission: 04/24/25 Date of Service: 04/24/25 Chief Complaint: General malaise/diarrhea/nausea HPI Narrative NERI GUILLEN, is a 79 F who presented to the emergency department [facility] on 04/24/2025 with multiple somatic complaints including fever, chills, myalgias, nausea without vomiting, diarrhea and dysuria. She also states that she has had several days of which is nonproductive but no chest pain or chest congestion. She states that she had been having diarrhea up to 7 times today. Her last fever document at home was yesterday. She has been afebrile all day today. She has pretty significant generalized weakness and fatigue. She took a home COVID test which was negative. Given the fact that she has not been able to eat much and feels worse she sought evaluation at her primary care's office today. They referred her to the emergency department as she was orthostatic with systolic blood pressure in the 80s in their office. They were concerned about dehydration. She does have issues with alternating diarrhea and constipation and follows with gastroenterology at baseline. She had an unremarkable colonoscopy in 2021 at [facility]. Prep was poor at that time. Vital signs on presentation showed a temperature of 97.8, heart rate 79, respiratory 16, blood pressure was 113/79 and pulse ox with 100% on room air. Compared to previous blood pressures we have had it appears that her blood pressure is significantly lower than she typically runs however we have no recent data. CBC on presentation shows a normal white count with a monocytosis and no left shift. She has a new anemia with a hemoglobin of 10.9. This is compared to lab from December 2024. Chemistry panel shows hypokalemia potassium of 2.8 and elevated BUN at 33 and serum creatinine 1.08 which is up from her baseline of about 0.6-0.8. Glucose was elevated at 138. She is a diabetic at baseline but has been compliant with her medication. LFTs are mildly elevated compared to baseline with an AST of 54 and ALT of 41 and alk phos of 204. UA is consistent with infection and dehydration. Specific remedy is 1.02 and is positive for protein, small amount of occult blood, leuk esterase, white cells, and 2+ bacteria. There is concern for viral gastroenteritis. Stool studies were ordered but not yet obtained in the emergency department. Urine culture was sent and she was started on ceftriaxone for suspected UTI. [facility] Medical History Wears hearing aid Wears partial dentures Wears dentures Cancer Depression Diabetes Low iron Fatty liver Back pain Migraine headache Injury of head and neck TIA (transient ischemic attack) Dietary restriction Difficulty swallowing History of ulceration History of IBS Non-smoker CPAP (continuous positive airway pressure) dependence Shortness of breath on exertion Leg cramps History of pain when walking History of edema History of echocardiogram History of stress test Cardiology follow-up encounter CAD (coronary artery disease) Hx of benign gastric tumor Psoriatic arthritis Hypertension FH: cholecystectomy Myalgia GERD (gastroesophageal reflux disease) Dyspareunia Arthritis Esophageal varices without bleeding Home Medications ?Medication ?Instructions ?Recorded ?Last Taken ?Type carvedilol 3.125 mg tablet 3.125 mg PO BID 09/14/21 Un known History losartan 100 mg tablet 100 mg PO DAILY 09/14/21 Unk nown History potassium chloride 10 mEq 10 meq PO DAILY 09/14/21 Unk nown History capsule,extended release semaglutide 0.25 mg or 0.5 mg (2 0.25 mg subcut FR 08/03 Unknown History mg/1.5 mL) subcutaneous pen injector (Abakus) resmetirom 80 mg tablet (Rezdiffra) 80 mg PO QDAY #30 tabs 12/31/24 Unknown Rx omeprazole 40 mg capsule,delayed 40 mg PO QDAY #90 cap s 04/02/25 Unknown Rx release Allergy/AdvReac Type Severity Reaction Status Date / Time clarithromycin (From Biaxin) Allergy Rash Verified 04/24/25 09:23 Shvjwuf-LBR-AgA Reductase AdvReac MUSCLE Verified 04/24/25 09:23 Inhibitor ACHES no significant family history Surgical History History of lumpectomy of both breasts History of cardiac catheterization Hx of colonoscopy History of esophagogastroduodenoscopy (EGD) Hx of right cataract extraction Hx of left cataract extraction Hx of shoulder surgery Hx of arthroscopic knee surgery H/O: hysterectomy H/O adenoidectomy History of appendectomy Social History household members: spouse housing: house Smoking Status: Never smoker alcohol intake: never substance use type: does not use ROS Constitutional Constitutional: Reports anorexia, chills, fatigue, fever(s), malaise and weakness; Denies change in weight, night sweats or other Eyes Eyes: Denies blurry vision, change in eye color, change in vision, discharge from eye(s), double vision, erythema, eye pain, loss of vision or other ENT HEENT: Reports sore throat; Denies abnormal hearing, dysphagia, ear pain, epistaxis, headache(s), hearing loss, nasal congestion, nasal discharge, post nasal drip, sinus pressure or other Cardiovascular Cardiovascular: Denies chest pain, claudication, dyspnea on exertion, edema, lightheadedness, orthopnea, palpitations, paroxysmal nocturnal dyspnea, rapid heart rate, syncope or other Respiratory/Chest Respiratory/Chest: Reports cough; Denies dyspnea, excessive phlegm production, hemoptysis, productive cough, shortness of breath at rest, shortness of breath with exertion, wheezing or other Gastrointestinal Gastrointestinal: Reports abdominal pain, diarrhea and nausea; Denies coffee ground emesis, constipation, dyspepsia, hematemesis, hematochezia, loose stools, melena, vomiting or other Genitourinary Genitourinary: Reports burning urination and dysuria; Denies difficulty urinating, hematuria, nocturia, urinary frequency, urinary hesitancy, urinary incontinence, urinary urgency or other Musculoskeletal Musculoskeletal: Reports myalgias; Denies arthralgias, back pain, joint pain, joint stiffness, joint swelling, neck pain or other Neurologic Neurologic: Denies abnormal gait, abnormal speech, confusion, disequilibrium, dizziness, focal weakness, headache(s), numbness, paresthesias, seizure-like activity, seizures, syncope, tingling, tremor(s) or other Psychiatric Psychiatric: Denies anxiety, depression, homicidal ideation, suicidal ideation or other Endocrine Endocrinology: Denies change in body appearance, cold intolerance, excessive sweating, heat intolerance, polydipsia, polyuria or other Hematologic/Lymphatic Hematologic/Lymphatic: Reports lymphadenopathy; Denies anemia, easy bleeding, easy bruising or other Allergic/Immunologic Allergic/Immunologic: Denies rhinitis, hives, eczemia, asthma or other Vital Signs Vital Signs Vital Signs: 04/24/25 09:22 04/24/25 11:11 04/24/25 12:20 Temperature 97.8 F Temperature Source Oral Pulse Rate 79 63 Respiratory Rate 16 14 Respiratory Pattern Normal Blood Pressure 113/79 112/43 L Blood Pressure Mean 90 66 Pulse Ox 100 100 Oxygen Delivery Method Room Air Room Air Weight Weight: 65.119 kg Body Mass Index (BMI) 28.0 Physical Exam Const alert, oriented x3, no apparent distress and average body habitus Constitutional Narrative: Elderly, white female, lying in bed with at bedside, appears comfortable but acutely ill, does not look toxic General Appearance: cooperative HEENT normocephalic and head/scalp atraumatic HEENT Narrative: Mucous membranes are dry, Mallampati is 2, no thrush Eyes conjunctivae normal Eyes Narrative: No scleral icterus Neck supple Neck Narrative: Trachea midline, mild left sided tenderness with lymphadenopathy in the submandibular and anterior left cervical chain Resp normal respiratory effort, no retractions, no use of accessory muscles and clear to auscultation bilaterally Auscultation: Negative for crackles, rhonchi or wheezes Cardio regular rate, regular rhythm, S1 normal heart sound, S2 normal heart sound, no murmurs, no rub, no gallops and no clicks GI GI Narrative: Mild diffuse tenderness, bowel sounds are mildly hyperactive, no distention and abdomen is soft Extremity no clubbing, cyanosis or edema Extremity Narrative: 2+ pedal and radial pulses Neuro moves all extremities and no focal motor deficits Speech: speech normal Psych Psych Narrative: Affect is flat but appropriate for current situation, eye contact is good patient interacts appropriately Results Lab / Micro Data 04/24/25 11:00 04/24/25 11:00 Labs: Laboratory Results - last 24 hr 04/24/25 11:00: WBC 9.9, RBC 3.67 L, Hgb 10.9 L, Hct 31.4 L, MCV 85.6, MCH 29.7, MCHC 34.7, RDW Std Deviation 40.9, RDW Coeff of Jahaira 13.0, Plt Count 274, MPV 9.9, Immature Gran % (Auto) 0.900, Neut % (Auto) 67.6, Lymph % (Auto) 16.5 L, M sangeetha % (Auto) 14.1 H, Eos % (Auto) 0.7, Baso % (Auto) 0.2, Absolute Neuts (auto) 6.7, Absolute Lymphs (auto) 1.64, Nucleated RBC % 0, Sodium 133, Potassium 2.8 L , Chloride 96 L, Carbon Dioxide 23.4, Anion Gap 14, BUN 33 H, Creatinine 1.08, E stim Creat Clear Calc 35.57 L, Est GFR (MDRD) Non-Af 52 L, BUN/Creatinine Ratio 30.3 H, Glucose 138 H, Calcium 8.8, Total Bilirubin 0.91, Direct Bilirubin 0.54 H, AST 54 H, ALT 41 H, Alkaline Phosphatase 204 H, Total Protein 6.1, Albumin 3.0 L, Globulin 3.1, Urine Color Yellow, Urine Clarity Sl. Cloudy, Urine pH 6.0, Ur Specific [place] 1.020, Urine Protein 30 H, Urine Glucose (UA) Normal, Urine Ketones Negative, Urine Occult Blood 25 H, Urine Nitrite Negative, Urine Bilirubin Negative, Urine Urobilinogen Normal, Ur Leukocyte Esterase 500 H, Urine RBC 0 SEEN, Urine WBC 10-25 SEEN, Ur Squamous Epith Cells 0-5 SEEN, Urine Bacteria 2+, Urine Mucus 0 SEEN Micro: Microbiology 04/24/25 11:00 Mucosa - Nose SARS-CoV-2, Influenza & RSV (PCR) - Final Imaging Radiology Impression Chest X-Ray 04/24/25 09:56 IMPRESSION: No acute cardiopulmonary process Reading Location: [facility] Abdomen/Pelvis CT 04/24/25 11:51 IMPRESSION: 1. Calcified splenic aneurysm, unchanged. 2. Fluid-filled nondistended colon may related to recent diarrhea. Clinical correlation is recommended. No bowel obstruction or pneumoperitoneum. 3. Apparent wall thickening of the gastric antrum could be secondary to underdistention or gastritis. 4. Hepatomegaly with fatty infiltration. 5. Fecal retention in the colon consistent with constipation. 6. No obstructive uropathy. Reading Location: [facility] Assessment & Plan Assessment/Plan (1) Weakness: (2) Acute dehydration: (3) Acute hypokalemia: (4) Abnormal urinalysis: (5) Transaminitis: (6) Orthostasis: PLAN: Plan Abnormal urinalysis - Highly suspect gram-negative urinary tract infection related to diarrhea - Culture pending - Start ceftriaxone 1 g daily - Await culture results Acute dehydration secondary to nausea/diarrhea - Suspect viral gastroenteritis - Check lactoferrin - Check enteric panel - Check C. difficile - IV fluids as ordered - Antiemetics as ordered - Clear liquid diet and advance as able to carb control Acute hypokalemia - Potassium was replaced in the emergency department - Repeat in a.m. - Check a.m. magnesium level Orthostasis - Likely related to severe acute dehydration - IV fluids as ordered - Hold home antihypertensives for now and restart as able Acute transaminitis - Patient has history of nonalcoholic fatty liver disease but baseline LFTs do not appear to be elevated on review of data - Likely related to acute dehydration and acute illness - Repeat in a.m. 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 Carlin - Continue home resmetirom if on formulary if not restart at discharge - Plan is for elastography in November 2025 Acute hyperglycemia with a history of DM-2 - Hold home semaglutide - SSI AC and at bedtime - Accu-Cheks as ordered - Patient states her blood sugars have been higher lately I suspect this is related to acute infection and should trend down as we treat GERD with history of esophagitis - Continue home omeprazole - Ongoing outpatient follow-up History of alternating constipation and diarrhea - Continue outpatient follow-up with GI Nonobstructive CAD/essential hypertension - Continue outpatient follow-up with her primary supplier manager - Hold carvedilol and losartan for now and restart as able with orthostasis and dehydration DVT prophylaxis - Enoxaparin 40 daily CODE STATUS - DNR CCA okay for short-term intubation per discussion with at the bedside at the time of admission Charges/Coding Visit Charges Inpatient E&M: 17112 Init Hosp L2
[2025-04-24 14:21] VITALS: BP 131/58; PULSE 62; RESP 15; TEMP 36.9; O2SAT 100
[2025-04-24 15:03] VITALS: BMI 28.0
[2025-04-24 15:07] VITALS: BP 112/51; PULSE 62; RESP 16; TEMP 36.2; O2SAT 100
[2025-04-24] MEDS: Lactated Ringers 1,000 ML 100 ML IV (15:36)
[2025-04-24] MEDS: CLARIFY ORDER 1 EACH NOTE (15:40)
[2025-04-24 17:45] LABS: Immature Reticulocyte Fraction 6.30 % (3.00-15.90); Platelet Count 283 K/mm3 (150-450); Reticulocyte Count 0.65 % (0.5-1.5)
[2025-04-24 20:41] LABS: Ferritin 1042 ng/mL (22-378); Iron 17 ug/dL (50-170); Iron Binding Capacity,Unsat 173 ug/dL (228-428)
[2025-04-24 21:14] LABS: Iron Binding Capacity,Total 190 ug/dL (250-450)
[2025-04-24 22:10] VITALS: BP 131/45; PULSE 79; RESP 18; TEMP 38.2; O2SAT 96
[2025-04-25] MEDS: Lactated Ringers 1,000 ML 100 ML IV (01:09)
[2025-04-25 04:20] VITALS: BP 118/49; PULSE 70; RESP 18; TEMP 36.6; O2SAT 93
[2025-04-25 05:19] LABS: Hematocrit 27.4 % (37-47); Hemoglobin 9.5 g/dL (12.0-15.0); Immature Granulocytes Count 0.050 X10^3/uL (0.0-0.0); Mean Corp Hgb Conc 34.7 g/dL (32-36); Mean Corpuscular Volume 85.6 fL (81-99); Mean Platelet Vol. 9.5 fl (6.2-12.0); NRBC Flagged by Analyzer 0 % (0-5); Platelet Count 256 K/mm3 (150-450); RBC Distribution Width CV 13.2 % (11.6-14.6); RBC Distribution Width SD 41.8 fl (35.1-43.9); Red Blood Count 3.20 M/mm3 (4.2-5.4); White Blood Count 8.5 K/mm3 (4.4-11.0)
[2025-04-25 05:39] VITALS: BMI 28.0
[2025-04-25 06:07] LABS: AST(SGOT) 36 U/L (<=31); Alanine Aminotransfer ALT/SGPT 34 U/L (<=34); Albumin, Serum 2.6 g/dL (3.4-4.8); Alkaline Phosphatase 164 U/L (35-104); Anion Gap 9 (5-15); BUN 24 mg/dL (4-19); BUN/Creat Ratio 26.8 RATIO (10-20); Calcium,Total 8.7 mg/dL (7.6-11.0); Carbon Dioxide 23.0 mmol/L (21.0-32.0); Chloride 101 mmol/L (98-108); Estimated Creatinine Clearance 43.06 ml/min (50-250); Globulin 2.8 g/dL (2.2-4.2); Glucose 136 mg/dL (70-99); Magnesium 2.0 mg/dL (1.5-2.2); Potassium 3.5 mmol/L (3.3-5.1)
[2025-04-25] MEDS: 0.9% Normal Saline (250mL Bag) 250 ML 15 ML IV (08:46)
--- NOTE | 2025-04-25 09:45 | CASEMGMT ---
SANTIAGO FINLEY Assessment Face to Face with patient for initial transition planning/care coordination assessment. SANTIAGO FINLEY introduced self and role at [facility], pt voices understanding. Pt is A&Ox4 and is resting comfortably in bed and is calm. Care providers, pharmacy, and demographics verified. Admitting dx: Gastroenteritis, Hypokalemia, Dehydration LACE Strata: 2 PCP: Nikia Specialists: Jimbo Bey ([facility]) Preferred Pharmacy: [facility] Prescription Benefit: Yes LNOK: Fermin (H), Belkys (Daughter) Living Arrangements: Pt lives with her in a single story home with a flat entrance ADLs/IADLs: Indep, 6-Click score is 24 Transportation: Self, DME: [facility] with sufficient testing supplies. Denies further needs HHC/SNF: Denies hx or needs Pt?s goal: Home Plan: Home with pt's and pt's daughter's support. No additional needs identified. Pt states that her daughter lives next door and that she is an RN. Pt denies the need for any additional therapy or resources. Pt denies further questions or concerns at this time. Hakeem Kirkpatrick RN, CM
--- NOTE | 2025-04-25 11:06 | DCINST_ITS ---
Discharge Instructions DC O2, CPAP, BIPAP needs Home O2 Discharge instructions: No Dressing / Incision Discharge Activity: Return to Normal Activity Weight Bearing Status: Full weight bearing Follow Up Care Test Results: Test results from this visit will be discussed in further detail at your follow- up appointment, if applicable. Discharge Plan Admission Admit Date/Time: 04/24/25 13:57 Primary Reason for Your Visit: gastroenteritis Attending Provider: Shankar Louis Primary Care Provider: Daysi Montejo Consulting Providers: Vikki Bailey Discharge Orders/Prescriptions Prescriptions: New cephalexin 500 mg capsule 500 mg PO TID Qty: 15 0RF Rx Instructions: start on 04/26/25 Continued carvedilol 3.125 mg tablet 3.125 mg PO BID Rx Instructions: must administer with a meal/food Ozempic 0.25 mg or 0.5 mg(2 mg/1.5 mL) pen injector 0.25 mg subcut FR Rx Instructions: for 4 doses potassium chloride 10 mEq capsule, extended release 10 meq PO DAILY losartan 100 mg tablet 100 mg PO DAILY Rezdiffra 80 mg tablet 80 mg PO QDAY Qty: 30 1RF omeprazole 40 mg capsule,delayed release(DR/EC) 40 mg PO QDAY Qty: 90 1RF Referrals / Follow Up: Daysi Montejo MD [Primary Care Provider, Internal Medicine] - Within 2 Weeks Disposition Disposition (needs filled in before D/C Order can be placed): Home, Self Care
--- NOTE | 2025-04-25 11:12 | DS.PCM_ITS ---
Providers Date of Admission: 04/24/25 Date of Discharge: 04/25/25 Primary Care Physician: Dr. Daysi Montejo MD Reason For Visit: GASTROENTERITIS/ HYPOKALEMIA/ DEHYDRATION Diagnosis Discharge Diagnosis (1) Weakness: Status: Acute Code(s): R53.1 - Weakness (2) Acute dehydration: Status: Acute Code(s): E86.0 - Dehydration (3) Acute hypokalemia: Status: Acute Code(s): E87.6 - Hypokalemia (4) Abnormal urinalysis: Status: Acute Code(s): R82.90 - Unspecified abnormal findings in urine (5) Transaminitis: Status: Acute Code(s): R74.01 - Elevation of levels of liver transaminase levels (6) Orthostasis: Status: Acute Code(s): I95.1 - Orthostatic hypotension Plan Final diagnosis #1 gastroenteritis-believed to be viral in nature #2 hypokalemia secondary to diarrhea #3 acute dehydration secondary to viral gastroenteritis #4 ESBL E. coli cystitis Medications at Discharge Home Medications carvedilol 3.125 mg tablet 3.125 mg PO BID 09/14/21 losartan 100 mg tablet 100 mg PO DAILY 09/14/21 potassium chloride 10 mEq capsule,extended release 10 meq PO DAILY 09/14/21 semaglutide 0.25 mg or 0.5 mg (2 mg/1.5 mL) subcutaneous pen injector (Ozempic) 0.25 mg subcut FR 09/14/21 resmetirom 80 mg tablet (Rezdiffra) 80 mg PO QDAY #30 tabs 12/31/24 omeprazole 40 mg capsule,delayed release 40 mg PO QDAY #90 caps 04/02/25 cephalexin 500 mg capsule 500 mg PO TID #15 caps 04/25/25 Hospital Course Operations None Procedures None Summary of Care Provided Minutes Spent on Discharge: 31 Hospital Course: 79-year-old white female presented to the emergency room at [facility] with a chief complaint of malaise. She is also complained of a cough which was nonproductive. She noted some nausea and diarrhea. She went to a nurse practitioner's office and there was a referral to emergency room for evaluation due to concerns of dehydration. Workup in the emergency room showed a normal white blood cell count, hemoglobin was 10.9, potassium was 2.8, AST was elevated 54 and ALT was elevated 41, alkaline phosphatase was 204, urinalysis showed 10-25 WBCs and +2 bacteria. Patient was admitted to PCU and placed on IV antibiotics, potassium replacement was given, on 04/25/2025, patient was seen and examined: On examination she appeared in good health and spirits, she does not appear to be in any distress. Vital signs as documented. Skin warm and dry and without overt rashes. Neck without JVD, thyroid appears normal, trachea is midline, neck is supple. Lungs clear, normal air movement was noted. Heart exam notable for regular rhythm, normal sounds and absence of murmurs, rubs or gallops. Abdomen unremarkable and without evidence of organomegaly, masses, or abdominal aortic enlargement, bowel sounds are present in all 4 quadrants, no abdominal tenderness was noted. Extremities nonedematous, no cyanosis was noted, no clubbing was noted. Neuro: Cranial nerves II through XII are grossly intact, no focal motor deficits were noted, sensation to light touch and pinprick is intact, motor exam 5/5 throughout. Psych: Patient is alert and oriented x3, she does not appear anxious or depressed, she does not appear agitated. Additional note: It was noted that the patient's urine grew out ESBL E. coli, a prescription for Macrobid will be called in as an outpatient as she was discharged on Keflex. Patient appears stable for discharge on 04/25/2025 Weight / BMI Weight Weight: 64.8 kg Body Mass Index (BMI) 28.0 ABG / Lab / Microbiology Data 04/25/25 05:09 04/25/25 05:09 Laboratory: Laboratory Results - last 24 hr 04/24/25 11:00: WBC 9.9, RBC 3.67 L, Hgb 10.9 L, Hct 31.4 L, MCV 85.6, MCH 29.7, MCHC 34.7, RDW Std Deviation 40.9, RDW Coeff of Jahaira 13.0, Plt Count 274, MPV 9.9, Immature Gran % (Auto) 0.900, Neut % (Auto) 67.6, Lymph % (Auto) 16.5 L, M sangeetha % (Auto) 14.1 H, Eos % (Auto) 0.7, Baso % (Auto) 0.2, Absolute Neuts (auto) 6.7, Absolute Lymphs (auto) 1.64, Nucleated RBC % 0, Retic Count 0.65, Immature Retic Fraction 6.30, Retic Hgb Equivalent 28.4 L, Sodium 133, Potassium 2.8 L, C hloride 96 L, Carbon Dioxide 23.4, Anion Gap 14, BUN 33 H, Creatinine 1.08, E stim Creat Clear Calc 35.57 L, Est GFR (MDRD) Non-Af 52 L, BUN/Creatinine Ratio 30.3 H, Glucose 138 H, Calcium 8.8, Iron 17 L, TIBC 190 L, Iron Saturation 8.9 L , Unsaturated IBC 173 L, Ferritin 1042 H, Total Bilirubin 0.91, Direct Bilirubin 0.54 H, AST 54 H, ALT 41 H, Alkaline Phosphatase 204 H, Total Protein 6.1, A lbumin 3.0 L, Globulin 3.1, Urine Color Yellow, Urine Clarity Sl. Cloudy, Urine pH 6.0, Ur Specific [place] 1.020, Urine Protein 30 H, Urine Glucose (UA) Normal, Urine Ketones Negative, Urine Occult Blood 25 H, Urine Nitrite Negative, Urine Bilirubin Negative, Urine Urobilinogen Normal, Ur Leukocyte Esterase 500 H , Urine RBC 0 SEEN, Urine WBC 10-25 SEEN, Ur Squamous Epith Cells 0-5 SEEN, Urine Bacteria 2+, Urine Mucus 0 SEEN 04/24/25 15:20: POC Glucose 98 04/24/25 22:03: POC Glucose 147 H 04/25/25 05:09: WBC 8.5, RBC 3.20 L, Hgb 9.5 L, Hct 27.4 L, MCV 85.6, MCH 29.7, MCHC 34.7, RDW Std Deviation 41.8, RDW Coeff of Jahaira 13.2, Plt Count 256, MPV 9.5, Immature Gran % (Auto) 0.600, Neut % (Auto) 64.8, Lymph % (Auto) 15.4 L, M sangeetha % (Auto) 16.5 H, Eos % (Auto) 2.2, Baso % (Auto) 0.5, Absolute Neuts (auto) 5.5, Absolute Lymphs (auto) 1.31, Nucleated RBC % 0, Sodium 133, Potassium 3.5, Chloride 101, Carbon Dioxide 23.0, Anion Gap 9, BUN 24 H, Creatinine 0.89, Estim Creat Clear Calc 43.06 L, Est GFR (MDRD) Non-Af 66, BUN/Creatinine Ratio 26.8 H, Glucose 136 H, Calcium 8.7, Phosphorus 3.6, Magnesium 2.0, Total Bilirubin 0.49, AST 36 H, ALT 34, Alkaline Phosphatase 164 H, Total Protein 5.4 L, Albumin 2.6 L , Globulin 2.8, Albumin/Globulin Ratio 0.9, TSH 2.180 04/25/25 06:21: POC Glucose 116 H Microbiology: Microbiology 04/24/25 11:00 Urine, Clean Catch Urine Culture - Final ESBL Escherichia coli 04/24/25 16:10 Stool Stool Lactoferrin - Final 04/24/25 16:10 Stool Enteric Bacteriology - Final 04/24/25 16:10 Stool Clostridioides difficile (PCR) - Final 04/24/25 11:00 Mucosa - Nose SARS-CoV-2, Influenza & RSV (PCR) - Final Radiography Diagnostic Testing: Radiology Impression Chest X-Ray 04/24/25 09:56 IMPRESSION: No acute cardiopulmonary process Reading Location: [facility] Abdomen/Pelvis CT 04/24/25 11:51 IMPRESSION: 1. Calcified splenic aneurysm, unchanged. 2. Fluid-filled nondistended colon may related to recent diarrhea. Clinical correlation is recommended. No bowel obstruction or pneumoperitoneum. 3. Apparent wall thickening of the gastric antrum could be secondary to underdistention or gastritis. 4. Hepatomegaly with fatty infiltration. 5. Fecal retention in the colon consistent with constipation. 6. No obstructive uropathy. Reading Location[facility] D/C Instructions Weight Bearing Status: Full weight bearing DC O2, CPAP, BIPAP Needs Home O2 Discharge instructions: No Meaningful Use Info Meaningful Use Meaningful Use Diagnoses (Choose all that apply): None applicable Discharge Plan Admission Admit Date/Time: 04/24/25 13:57 Primary Reason for Your Visit: gastroenteritis Attending Provider: Shankar Louis Primary Care Provider: Daysi Montejo Consulting Providers: Vikki Bailey Discharge Orders/Prescriptions Prescriptions: New cephalexin 500 mg capsule 500 mg PO TID Qty: 15 0RF Rx Instructions: start on 12/13/25 Continued carvedilol 3.125 mg tablet 3.125 mg PO BID Rx Instructions: must administer with a meal/food Ozempic 0.25 mg or 0.5 mg(2 mg/1.5 mL) pen injector 0.25 mg subcut FR Rx Instructions: for 4 doses potassium chloride 10 mEq capsule, extended release 10 meq PO DAILY losartan 100 mg tablet 100 mg PO DAILY Rezdiffra 80 mg tablet 80 mg PO QDAY Qty: 30 1RF omeprazole 40 mg capsule,delayed release(DR/EC) 40 mg PO QDAY Qty: 90 1RF Referrals / Follow Up: Daysi Montejo MD [Primary Care Provider, Internal Medicine] - Within 2 Weeks Disposition Disposition (needs filled in before D/C Order can be placed): Home, Self Care Charges/Coding Visit Charges Inpatient E&M: 86054 Disch Hosp >30min
[2025-04-25 11:23] VITALS: BP 126/44; PULSE 66; RESP 18; TEMP 37.4; O2SAT 93
--- NOTE | 2025-04-25 13:22 | PHA.DC.COU.R ---
Pharmacy [facility] has performed discharge medication counseling for this patient. The patient was counseled on the following discharge medications and changes in medications for homegoing review. - Cephalexin 500 mg capsule The Reason for Use, instructions for use, and potential side effects were reviewed for all new medications. The patient's questions regarding all of their medications were answered. The patient was able to verbally demonstrate an understanding of their discharge medications. Medications at Discharge Home Medications carvedilol 3.125 mg tablet 3.125 mg PO BID 09/14/21 losartan 100 mg tablet 100 mg PO DAILY 09/14/21 potassium chloride 10 mEq capsule,extended release 10 meq PO DAILY 09/14/21 semaglutide 0.25 mg or 0.5 mg (2 mg/1.5 mL) subcutaneous pen injector (Ozempic) 0.25 mg subcut FR 09/14/21 resmetirom 80 mg tablet (Rezdiffra) 80 mg PO QDAY #30 tabs 12/31/24 omeprazole 40 mg capsule,delayed release 40 mg PO QDAY #90 caps 04/02/25 cephalexin 500 mg capsule 500 mg PO TID #15 caps 04/25/25
--- OUTSIDE RECORDS SUMMARY | 2025-05-09 10:10 | XMS RPT_ITS | CCD ---
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 Rodrigo Salas Primary Care Provider Dr. Rodrigo Salas Referring Provider Sandy PROGRAM SCHEDULE CLERK, PROGRAM SCHEDULE CLERK-C Mallory Lane Attending Provider [phone] Attending Provider [phone] Other Provider MD Rodrigo Salas Referring Provider Unavailable Rodrigo Salas MD Primary Care Provider Rodrigo Salas MD Primary Care Provider Dr. Rodrigo Salas Primary Care Provider Dr. 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 Rodrigo Salas MD Primary Care Provider Alecia Simon Attending Provider Alecia Simon Referring Provider Dr. Rordigo Salas MD Referring Provider Alecia Padilla Attending Unavailable Alecia Padilla Referring Unavailable Ganta, Rodrigo Primary Care Unavailable AtaAlecia hutchinson Referring Unavailable AtaAlecia hutchinson Attending Unavailable Ganta, Rodrigo Primary Care Unavailable AtaAlecia hutchinson Attending Unavailable Alecia Padilla Referring Unavailable Ganta, Rodrigo Primary Care Unavailable Alecia Padilla Attending Unavailable Ganta, Rodrigo Primary Care Unavailable Ganta, Rodrigo Referring Unavailable AtanasAlecia cash Attending Unavailable Ganta, Rodrigo Primary Care Unavailable Ganta, Rodrigo Referring Unavailable GANTA, RODRIGO Primary Care Unavailable SELF Referring Unavailable SLEIK, KHALED MELOUD Attending Unavailable GANTA, RODRIGO Primary Care Unavailable SLEIK, KHALED MELOUD Attending Unavailable GANTA, RODRIGO Referring Unavailable GANTA, RODRIGO Primary Care Unavailable SLEIK, KHALED CHARISD Attending Unavailable SLEIK, KHALED MELOUD Admitting Unavailable GANTA, RODRIGO Referring Unavailable GANTA, RODRIGO Primary Care Unavailable GANTA, RODRIGO Referring Unavailable GANTA, RODRIGO Primary Care Unavailable VEANNE-MARIE EDWARDSA Attending Unavailable KURT CARDONA Referring Unavailable GANTA, RODRIGO Primary Care Unavailable GANTA, RODRIGO Attending Unavailable GANTA, RODRIGO Primary Care Unavailable GANTA, RODRIGO Referring Unavailable GANTA, RODRIGO Primary Care Unavailable VETOGRETCHEN JOHNSON Attending Unavailable GANTA, RODRIGO Referring Unavailable GANTA, RODRIGO Primary Care Unavailable KURT CARDONA Attending Unavailable KURT CARDONA Referring Unavailable GANTA, RODRIGO Primary Care Unavailable LIUDMILA NORRIS Attending Unavailable LIUDMILA NORRIS Referring Unavailable GANTA, RODRIGO Primary Care Unavailable BOWEN RODRIGUEZ Attending Unavailable GANTA, RODRIGO Referring Unavailable GANTA, RODRIGO Primary Care Unavailable GANTA, RODRIGO Attending Unavailable GANTA, RODRIGO Primary Care Unavailable GANTA, RODRIGO Referring Unavailable GANTA, RODRIGO Primary Care Unavailable GANTA, RODRIGO Attending Unavailable GANTA, RODRIGO Primary Care Unavailable GANTA, RODRIGO Referring Unavailable GANTA, RODRIGO Primary Care Unavailable GANTA, RODRIGO Referring Unavailable GANTA, RODRIGO Primary Care Unavailable GANTA, RODRIGO Referring Unavailable GANTA, RODRIGO Primary Care Unavailable KURT CARDONA Admitting Unavailable KURT CARDONA Attending Unavailable GANTA, RODRIGO Primary Care Unavailable Allergies Allergy Classification Reported Allergen(s) Allergy Type Date of Onset Reaction(s) Facility (20 sources) amLODIPine; Translations: [AMLODIPINE] Drug Allergy 09-18-19 21 Swelling [facility] (20 sources) Clarithromycin; Translations: [CLARITHROMYCIN] Drug Allergy 08-27-19 08 Rash [facility] Work Phone: (9 sources) HMG-CoA reductase inhibitor; Translations: [[id number] REDUCTASE INHIBITORS] Drug Intolerance 08-09-19 13 Intolerance [facility] Work Phone: (20 sources) metFORMIN; Translations: [METFORMIN] Drug Allergy 11-20-19 10 Diarrhea [facility] Work Phone: [phone] (20 sources) HMG-CoA reductase inhibitor Drug Intolerance 08-09-19 13 Intolerance [facility] Work Phone: (6 sources) Fovbgva-Ggc-Yyq Reductase Inhibitor; Translations: [Xjsodaj-Fzp-Xbb Reductase Inhibitor] Propensity to adverse reactions 11-27-19 22 MUSCLE ACHES [facility] (20 sources) Spironolactone; Translations: [SPIRONOLACTONE] Drug Allergy 10-12-19 23 Other: See Comments [facility] Work Phone: (1 source) Clarithromycin Drug Allergy 01-01-20 25 [facility] Repository Medications Current Medications Medication Drug Class(es) Dates Sig (Normalized) Sig (Original) amoxicillin 875 mg / clavulanate 125 mg oral tablet (1 source) Penicillin-class Antibacterial Start: 03-26-2022 End: 04-02-2022 take 1 tablet by mouth twice daily amoxicillin-clavul anic acid (AUGMENTIN) 875-125 mg per tablet Indications: Non-recurrent acute suppurative otitis media of both ears without spontaneous rupture of tympanic membranes Take 1 tablet by mouth twice daily for 7 days. 14 tablet 0 03/26/2022 04/02/2022 Active Comment on above: Take 1 tablet by lin twice daily for 7 days. augmented betamethasone 0.5 mg/ml topical cream (1 source) Corticosteroid Start: 01-24-2025 betamethasone dipropionate, augmented (DIPROLENE) 0.05 % cream Apply to affected area. APPLY TO AFFECTED AREAS OF RASH ON THE BODY 1-2 TIMES DAILY WHEN FLARED 01/24/2025 Active betamethasone 0.5 mg/ml / clotrimazole 10 mg/ml topical cream (2 sources) Azole Antifungal, Corticosteroid Start: 10-13-2022 End: 10-20-2022 clotrimazole-betam ethasone (LOTRISONE) cream Indications: Vulvar irritation Apply 1 application to affected area twice daily for 7 days. 15 g 0 10/13/2022 10/20/2022 Active Comment on above: Apply 1 application to affected area twice daily for 7 days. Blood Sugar Diagnostic, Drum (ACCU-CHEK COMPACT TEST) Strp (20 sources) Start: 04-13-2012 Blood Sugar Diagnostic, Drum (ACCU-CHEK COMPACT TEST) Strp TEST BLOOD SUGAR ONCE DAILY. 250.00 51 Strip 11 04/13/2012 Active Comment on above: TEST BLOOD SUGAR ONC E DAILY. 250.00 Blood-Glucose Meter monitoring kit (1 source) Start: 01-12-2023 End: 01-13-2023 Blood-Glucose Meter monitoring kit Glucose Meter of Choice - Kit - Dx: Type 2 DM - Controlled E11.9 1 Each 0 01/12/2023 01/13/2023 Active Comment on above: Glucose Meter of Cho ice - Kit - Dx: Type 2 DM - Controlled E11.9 blood-glucose meter, drum-type(ACCU-CHEK COMPACT PLUS CARE KIT) (20 sources) Start: 10-13-2009 blood-glucose meter, drum-type(ACCU-MARLEY K COMPACT PLUS CARE KIT) As directed 1 0 10/13/2009 Active Comment on above: As directed carvedilol 3.125 mg oral tablet (20 sources) alpha-Adrenergic Quentin, beta-Adrenergic Quentin Start: 07-10-2023 End: 06-19-2024 carvedilol (COREG) 3.125 mg tablet Indications: Essential hypertension TAKE 4 TABLETS TWICE A DAY WITH MEALS 720 tablet 3 07/10/2023 06/19/2024 Discontinued Start: 04-14-2022 End: 10-16-2022 take 4 tablets by mouth twice daily at mealtime carvedilol (COREG) 3.125 mg tablet Indications: Essential hypertension Take 4 tablets by mouth twice daily with meals. 720 tablet 3 07/18/2022 Active Start: 01-03-2022 take 4 tablets by mo uth twice daily carvedilol (COREG) 3.125 mg tablet Indications: Essential hypertension Take 4 tablets by mouth twice daily. 180 tablet 3 01/03/2022 Active Start: 09-14-2021 End: 11-27-2025 take 1 tablet by mouth twice daily at mealtime carvedilol (COREG) 3.125 mg tablet Indications: Essential hypertension Take 1 tablet by mouth two times a day with meals. 180 tablet 3 12/02/2024 11/27/2025 Active Start: 07-05-2021 End: 01-03-2022 take 2 tablets by mouth twice daily carvedilol (COREG) 3.125 mg tablet Indications: Essential hypertension Take 2 tablets by mouth twice daily. 180 tablet 3 09/09/2021 01/03/2022 Discontinued Comment on above: Take 2 tablets by mo uth twice daily. Take 4 tablets by mo uth twice daily. TAKE 4 TABLETS TWICE DAILY Take 4 tablets by mo uth twice daily with meals. TAKE 4 TABLETS TWICE A DAY WITH MEALS DULoxetine 30 mg delayed release oral capsule (20 sources) Serotonin and Norepinephrine Reuptake Inhibitor Start: End: take 1 capsule by mouth once daily DULoxetine (CYMBALTA) 30 mg capsule Take 1 capsule by mouth once daily. 90 capsule 5 02/19/2024 Active Start: 02-24-2023 End: 03-27-2023 take 1 capsule by mouth once daily DULoxetine (CYMBALTA) 20 mg capsule Take 1 capsule by mouth once daily. 30 capsule 1 03/27/2023 Active Comment on above: Take 1 capsule by mo uth once daily. 3.5 ml evolocumab 120 mg/ml cartridge (20 sources) PCSK9 Inhibitor Start: 10-29-2024 REPATHA PUSHTRONEX 420 mg/3.5 mL wearable injector Indications: Mixed hyperlipidemia 3.5 mL by IM/SQ route once every month. 10.5 mL 5 10/29/2024 Active Start: 03-19-2024 End: 10-29-2024 REPATHA PUSHTRONEX 420 mg/3. 5 mL wearable injector INJECT 3.5 ML BY INJECTION(UNSPECIFIED PARENTERAL ROUTES) ROUTE ONCE EVERY MONTH. ONCE A MONTH 10.5 mL 5 03/19/2024 10/29/2024 Discontinued Start: 11-20-2023 End: 03-19-2024 REPATHA PUSHTRONEX 420 mg/3. 5 mL wearable injector 3.5 mL by INJECTION(UNSPECIFIED PARENTERAL ROUTES) route once every month. Once a month 12 Each 11/28/2023 03/19/2024 Discontinued Start: 09-14-2021 End: 12-31-2024 Evolocumab (Repatha Pushtron ex) 420 mg/3.5 mL wearable injector Discontinued 420 mg SC .QMO September 14, 2021 12:00am December 31, 2024 11:04am Start: 09-14-2021 Evolocumab (Re patha Pushtronex) 420 mg/3.5 mL wearable injector Active MG SC September 14, 2021 12:00am Start: 11-09-2020 End: 10-13-2022 REPATHA PUSHTRONEX 420 mg/3. 5 mL 3.5 mL by INJECTION(UNSPECIFIED PARENTERAL ROUTES) route once every month. Once a month 12 Each 0 08/29/2022 09/13/2022 Discontinued Comment on above: 3.5 mL by INJECTION( UNSPECIFIED PARENTERAL ROUTES) route once every month. 3.5 mL by INJECTION( UNSPECIFIED PARENTERAL ROUTES) route once every month. Once a month hydrocortisone 25 mg/ml topical cream (20 sources) Corticosteroid Start: 10-23-19 25 hydrocortisone 2.5 % cream Indications: Eczema intertrigo abdomenal areas as needed 60 g 6 10/22/2024 Active Start: 12-14-2021 End: 10-18-2024 hydrocortisone 2.5 % cream I ndications: Eczema intertrigo abdomenal areas as needed 60 g 6 12/14/2021 10/18/2024 Discontinued Start: 02-22-2011 hydrocortisone 2.5 % TOPICAL cream Indications: Pruritus - disorder , Eczema intertrigo Apply to itching skin or dermatitis rash of fold areas under breasts or undearms or lower abdomen and groin area two to four times per day or more as needed and directed (eg., start promptly at early recurrence of rash as directed and tolerated), until clear and then can stop or taper off as able. AVOID eyes and eyelids. 60 g 6 02/22/2011 Active Comment on above: Apply to itching ski n or dermatitis rash of fold areas under breasts or undearms or lower abdomen and groin area two to four times per day or more as needed and directed (eg., start promptly at early recurrence of rash as directed and tolerated), until clear and then can stop or taper off as able. AVOID eyes and eyelids. abdomenal areas as n eeded losartan potassium 100 mg oral tablet (20 sources) Angiotensin 2 Receptor Quentin Start: 09-18-19 End: 06-19-19 take 1 tablet by mouth once daily losartan (COZAAR) 100 mg tablet Take 1 tablet by mouth once daily. 90 tablet 3 06/19/2024 Active Comment on above: [facility] nitrofurantoin, macrocrystals 25 mg / nitrofurantoin, monohydrate 75 mg oral capsule (2 sources) Nitrofuran Antibacterial Start: 09-11-19 End: 09-16-19 take 1 capsule by mouth twice daily nitrofurantoin monohydrate and macrocrystal (MACROBID) 100 mg capsule Take 1 capsule by mouth twice daily for 5 days. 10 capsule 0 09/10/2021 09/15/2021 Active Comment on above: Take 1 capsule by mo [facility] twice daily for 5 days. omeprazole 40 mg delayed release oral capsule (20 sources) Proton Pump Inhibitor Start: 07-03-19 take 1 capsule by mouth once daily Omeprazole 40 mg capsule,delayed release(DR/EC) Active 40 mg PO daily 90 July 03, 2024 1:00am Start: 12-10-2021 End: 12-31-2024 take 1 capsule by mouth twice daily Omeprazole 20 mg capsule,delayed release(DR/EC) Discontinued 20 mg PO TWICE A DAY 60 August 01, 2023 2:14pm December 31, 2024 11:05am Start: 09-14-2021 End: 12-10-2021 take 1 capsule by mouth once daily Omeprazole 20 mg capsule,delayed release(DR/EC) Discontinued 20 mg PO DAILY September 14, 2021 12:00am December 10, 2021 6:35pm Start: 09-17-2020 End: 01-12-2023 take 1 capsule by mouth every twelve hours omeprazole (PRILOSEC) 20 mg capsule Take 1 capsule by mouth every 12 hours. 180 capsule 3 07/11/2022 01/12/2023 Discontinued Comment on above: Take 1 capsule by [facility] every 12 hours. pantoprazole 20 mg delayed release oral tablet (20 sources) Proton Pump Inhibitor Start: 3 End: 5 take 1 tablet by mouth once daily pantoprazole DR (PROTONIX) 20 mg tablet Take 20 mg by mouth once daily. 12/22/2022 Active Start: 12-13-2022 End: 03-13-2023 take 1 tablet by mouth twice daily Pantoprazole 20 mg tablet,delayed release (DR/EC) Discontinued 20 mg PO TWICE A DAY 180 90 0 December 13, 2022 12:00am March 12, 2023 12:00am March 13, 2023 12:04am perflutren lipid microspheres 1.3 mL in NaCl (PF) 0.9% 10 mL injection (DEFINITY) (1 source) Start: 06-09-2020 End: 09-08-2021 perflutren lipid microspheres 1.3 mL in NaCl (PF) 0.9% 10 mL injection (DEFINITY) potassium chloride 10 meq extended release oral capsule (20 sources) Start: 09-14-2021 End: 11-28-2023 take 1 capsule by mouth once daily Potassium Chloride 10 mEq capsule, extended release Active 10 meq PO DAILY September 14, 2021 12:00am Start: 09-17-2020 End: 07-16-2022 take 1 capsule by mouth twice daily potassium chloride SR (MICRO-K) 10 mEq CR capsule Take 1 capsule by mouth twice daily. 180 capsule 3 09/17/2020 07/16/2022 Discontinued Comment on above: Take 1 capsule by [facility] twice daily. Take 1 capsule by [facility] once daily. Resmetirom (Rezdiffra) 80 mg tablet (2 sources) Start: take 1 tablet by mouth once daily Resmetirom (Rezdiffra) 80 mg tablet Active 80 mg PO daily 30 December 31, 2024 12:00am semaglutide (OZEMPIC) 0.25 mg or 0.5 mg (2 mg/3 mL) pen (20 sources) Start: 5 End: 6 semaglutide (OZEMPIC) 0.25 mg or 0.5 mg (2 mg/3 mL) pen Indications: Type 2 diabetes mellitus with diabetic peripheral angiopathy without gangrene, without long-term current use of insulin (HCC) Inject 0.25 mg subcutaneously one time a week. 6 mL 2 01/29/2025 01/29/2026 Active Start: 03-01-2024 End: 08-28-2024 semaglutide (OZEMPIC) 0.25 m g or 0.5 mg (2 mg/3 mL) pen Indications: Diabetes mellitus type 2 (HCC) Inject 0.25 mg subcutaneously one time a week. 3 mL 2 03/01/2024 08/28/2024 Active Start: 11-28-2023 End: 02-26-2024 inject 0.5 mg by subcutaneous injection every week semaglutide (OZEMPIC) 0.25 mg or 0.5 mg (2 mg/3 mL) pen Inject 0.5 mg subcutaneously one time a week. 3 mL 2 11/28/2023 02/26/2024 Active 125 ml sodium chloride 9 mg/ml prefilled syringe (1 source) Start: 06-09-2020 End: 09-08-2021 sodium chloride 0.9 % (flush) 10 mL (BD POSIFLUSH) valACYclovir 500 mg oral tablet (1 source) Herpesvirus Nucleoside Analog DNA Polymerase Inhibitor, Herpes Simplex Virus Nucleoside Analog DNA Polymerase Inhibitor, Herpes Zoster Virus Nucleoside Analog DNA Polymerase Inhibitor Start: 01-24-2025 take 1 tablet by mouth once daily valACYclovir (VALTREX) 500 mg tablet Take 1 tablet by mouth once daily. 01/24/2025 Active Completed/Discontinued Medications Medication Drug Class(es) Dates Sig (Normalized) Sig (Original) 1 ml alirocumab 75 mg/ml auto-injector (20 sources) PCSK9 Inhibitor Start: 09-26-2022 End: 06-19-2024 inject 1 mL by subcutaneous injection every other week alirocumab (PRALUENT PEN) 75 mg/mL pen Inject 1 mL subcutaneously every other week. 6 Each 1 11/06/2023 06/19/2024 Discontinued (Course of therapy completed) Comment on above: Inject 1 mL subcutaneously every other w kalispel. Inject 1 mL subcutan eously every other week for 6 days. aspirin 325 mg oral tablet (20 sources) Platelet Aggregation Inhibitor, Nonsteroidal Anti-inflammatory Drug Start: 12-10-2010 End: 01-12-2023 take 1 tablet by mouth every week aspirin 325 mg ORAL tablet Take 325 mg by mouth. Once a week Takes approximately once a month 0 12/10/2010 01/12/2023 Discontinued Start: 12-10-2010 take 1 tablet by lin th once daily aspirin 325 mg ORAL tablet Take 1 tablet by mouth once daily. 0 12/10/2010 Active Comment on above: Take 1 tablet by lin th once daily. Take 325 mg by mouth . Once a week Take 325 mg by mouth . Once a week Takes approximately once a month azithromycin 500 mg oral tablet (4 sources) Macrolide Antimicrobial Start: 12-11-19 End: 12-16-19 take 1 tablet by mouth once daily Azithromycin 500 mg tablet Discontinued 500 mg PO DAILY 5 5 0 December 10, 2021 12:00am December 14, 2021 12:00am December 15, 2021 12:04am Ca Carb-Mag Cmb 11-D3-Zn Sulf (EDCVWWZ-[id number]-[id number] NC) [phone] sf-vssi-zp-mg ORAL Tab (8 sources) Start: 12-11-19 11 Ca Carb-Mag Cmb 11-D3-Zn Sulf (MYYSSPQ-[id number]-L INC) [phone] ul-rplz-ty-mg ORAL Tab Take by mouth. 0 12/10/2010 Active Comment on above: Take by mouth. Ca Carb-Mag Cmb 11-D3-Zn Sulf [phone] ho-jsok-en-mg tab (20 sources) Start: 12-11-19 End: 02-25-20 23 Ca Carb-Mag Cmb 11-D3-Zn Sulf [phone] mg-uctw-xb-mg tab Take by mouth once daily. 0 12/10/2010 02/24/2023 Discontinued Start: 12-10-2010 Ca Carb-Mag Cm b 11-D3-Zn Sulf [phone] vn-wkof-zl-mg tab Take by mouth once daily. 0 12/10/2010 Active Start: 12-10-2010 Ca Carb-Mag Cm b 11-D3-Zn Sulf [phone] ys-rkio-ml-mg tab Take by mouth. 0 12/10/2010 Active Comment on above: Take by mouth. Take by mouth once d aily. cholecalciferol 1.25 mg oral capsule (20 sources) Vitamin D Start: 09-15-19 End: 01-01-20 take 1 capsule by mouth every month Cholecalciferol (Vitamin D3) 1,250 mcg (50,000 unit) capsule Discontinued 1250 ug PO EVERY MONTH September 14, 2021 12:00am December 31, 2024 11:04am Start: 08-08-2012 take 1 capsule by mo [facility] every week cholecalciferol, Vitamin D3, 50,000 unit cap capsule Take 1 capsule by mouth one time a week. 0 08/08/2012 Active Comment on above: Take 1 capsule by mo [facility] one time a week. CPAP (10 sources) Start: 10-05-19 CPAP Indications: ESTRELLITA (obstructive sleep apnea) , Chronic insomnia AutoPAP with humidification set at range of 5-15 cmH2O. Needs mask fit. Lifetime supplies. 1 Each 999 10/04/2021 Active Comment on above: AutoPAP with humidif ication set at range of 5-15 cmH2O. Needs mask fit. Lifetime supplies. doxycycline hyclate 100 mg oral capsule (3 sources) Tetracycline-class Drug Start: 12-14-19 End: 01-01-20 take 1 capsule by mouth twice daily Doxycycline Hyclate 100 mg capsule Discontinued 100 mg PO TWICE A DAY 60 0 December 13, 2022 12:00am December 31, 2024 11:04am fluconazole 150 mg oral tablet (13 sources) Azole Antifungal Start: 08-21-19 fluconazole (DIFLUCAN) 150 mg tablet Indications: Vaginal yeast infection TAKE ONE(1) TABLET BY MOUTH WHEN FILLED THEN AGAIN IN 3DAYS IF STILL SYMPTOMATIC 2 tablet 0 08/20/2021 Active Comment on above: TAKE ONE(1) TABLET B Y MOUTH WHEN FILLED THEN AGAIN IN 3DAYS IF STILL SYMPTOMATIC FLUoxetine 20 mg oral capsule (14 sources) Serotonin Reuptake Inhibitor Start: 09-18-19 End: 01-01-20 take 1 capsule by mouth once daily Fluoxetine 20 mg capsule Discontinued 20 mg PO DAILY September 14, 2021 12:00am December 31, 2024 11:04am Comment on above: Take 1 capsule by mo [facility] once daily. fluticasone propionate 0.05 mg/actuat metered dose nasal spray (20 sources) Corticosteroid Start: 05-09-20 End: 06-19-19 take 2 spray(s) by mouth once daily fluticasone (FLONASE) 50 mcg/actuation nasal spray USE 2 SPRAYS IN EACH NOSTRIL ONCE DAILY. RINSE MOUTH AFTER USE. 48 mL 1 05/09/2023 06/19/2024 Discontinued (Course of therapy completed) Start: 01-12-2023 End: 02-03-2023 take 2 spray(s) by mouth once daily fluticasone (FLONASE) 50 mcg/actuation nasal spray USE 2 SPRAYS IN EACH NOSTRIL ONCE DAILY. RINSE MOUTH AFTER USE. 16 mL 3 02/03/2023 Active Comment on above: Use 2 Sprays in each nostril once daily. Rinse mouth after use. 1 ml guselkumab 100 mg/ml auto-injector (20 sources) Interleukin-23 Antagonist Start: 09-14-2021 End: 12-31-2024 Guselkumab (Tremfya) 100 mg/mL auto-injector Discontinued 100 mg SC every 8 weeks September 14, 2021 12:00am December 31, 2024 11:04am Start: 03-09-2021 End: 06-19-2024 inject 1 dose by subcutaneous injection every two months TREMFYA 100 mg/mL AutoInjector Inject 1 Dose subcutaneously as directed. Every other month 03/09/2021 06/19/2024 Discontinued (Course of therapy completed) Comment on above: Inject 1 Dose subcut aneously as directed. Every other month hydroCHLOROthiazide 25 mg oral tablet (20 sources) Thiazide Diuretic Start : 09-17 End: 03-13 take 1 tablet by mouth once daily hydroCHLOROthiazide (HYDRODIURIL, ESIDRIX) 25 mg tablet Take 1 tablet by mouth once daily. 90 tablet 3 07/18/2022 03/13/2023 Discontinued (Course of therapy completed) Comment on above: Take 1 tablet by lin th once daily. ketoconazole 20 mg/ml topical cream (20 sources) Azole Antifungal Start : 09-17 End: 11-05 ketoconazole (NIZORAL) 2 % cream Apply 1 application to affected area once daily. Apply to rash and surrounding area 30 g 5 09/17/2020 11/06/2023 Discontinued (Course of therapy completed) Comment on above: Apply 1 application to affected area once daily. Apply to rash and surrounding area Lactulose (3 sources) Osmotic Laxative Start : 08-13 End: 12-31 take 20 g by mouth twice daily Lactulose 20 gram/30 mL solution Discontinued 20 g PO TWICE A DAY 3000 0 August 14, 2023 12:00am December 31, 2024 11:05am Start: 08-14-2023 take 20 g by mouth twice daily Lactulose 20 gram/30 mL solution Active 20 g PO TWICE A DAY 3000 0 August 14, 2023 12:00am linagliptin 5 mg oral tablet (1 source) Dipeptidyl Peptidase 4 Inhibitor Start: 03-26-2021 End: 08-12-2021 take 1 tablet by mouth once daily linaGLIPtin (TRADJENTA) 5 mg tab Indications: Uncontrolled type 2 diabetes mellitus with hyperglycemia (HCC) Take 1 tablet by mouth once daily. 90 tablet 3 03/26/2021 08/12/2021 Discontinued Comment on above: Take 1 tablet by lin th once daily. plecanatide 3 mg oral tablet (3 sources) Start: 08-01-2023 End: 12-31-2024 take 1 tablet by mouth once daily Plecanatide (Trulance) 3 mg tablet Discontinued 3 mg PO DAILY 90 2 August 01, 2023 12:00am December 31, 2024 11:05am polyethylene glycol 3350 357541 mg / potassium chloride 2970 mg / sodium bicarbonate 6740 mg / sodium chloride 5860 mg / sodium sulfate 72413 mg powder for oral solution (1 source) Osmotic Laxative Start: 07-11-2022 End: 07-11-2022 peg 3350-Electrolytes (GOLYTELY) 236-22.74-6.74 -5.86 gram suspension Take 4,000 mL by mouth one time only for 1 dose. 1 Each 0 07/11/2022 07/11/2022 Comment on above: Take 4,000 mL by lin th one time only for 1 dose. regadenoson 0.4 mg injection (LEXISCAN) (2 sources) Start: 01-29-2024 End: 01-29-2024 regadenoson 0.4 mg injection (LEXISCAN) Start: 01-29-2024 End: 01-29-2024 0.4 mg, INTRAVENOUS, DIRE CTED NEEDED, 1 dose, Starting on Mon01/29/24 at 1155, Until Mon01/29/24 at 1018, Per-Protocol - for use during STRESS TEST procedure only, Give 0.4 mg (5 mL) over ~10 seconds, followed immediately by a 5 mL saline flush. Wait 10-20 seconds, then administer the radionuclide myocardial perfusion imaging agent., Cardiac Procedure Med Orders 0.25 mg, 0.5 mg dose 1.5 ml semaglutide 1.34 mg/ml pen injector (20 sources) Start: 01-06-2022 End: 04-08-2022 semaglutide (OZEMPIC) 0.25 m g or 0.5 mg(2 mg/1.5 mL) pen Inject 0.5 mg subcutaneously one time a week. 2 mL 1 01/06/2022 04/08/2022 Discontinued Start: 09-14-2021 Semaglutide (O zempic) 0.25 mg or 0.5 mg(2 mg/1.5 mL) pen injector Active 0.25 mg SC FR September 14, 2021 12:00am for 4 doses Start: 09-09-2021 semaglutide (O ZEMPIC) 0.25 mg or 0.5 mg(2 mg/1.5 mL) pen injector Inject 0.5 mg subcutaneously one time a week. 1 Syringe 5 09/09/2021 Active Start: 2021 End: 09-09-2021 semaglutide (OZEMPIC) 0.25 m g or 0.5 mg(2 mg/1.5 mL) pen injector Inject 0.25 mg subcutaneously one time a week. 2 mL 1 2021 09/09/2021 Discontinued Comment on above: Inject 0.25 mg subcu taneously one time a week. Inject 0.5 mg subcut aneously one time a week. semaglutide (OZEMPIC) 1 mg/dose (4 mg/3 mL) pen (10 sources) Start: 023 End: 023 inject 1 mg by subcutaneous injection every week semaglutide (OZEMPIC) 1 mg/dose (4 mg/3 mL) pen Indications: Controlled type 2 diabetes mellitus without complication, without long-term current use of insulin (HCC) Inject 1 mg subcutaneously one time a week. 4 Each 3 07/11/2022 07/28/2022 Discontinued Start: 07-11-2022 inject 1 mg by subcu taneous injection every week semaglutide (OZEMPIC) 1 mg/dose (4 mg/3 mL) pen Indications: Controlled type 2 diabetes mellitus without complication, without long-term current use of insulin (HCC) Inject 1 mg subcutaneously one time a week. 4 Each 3 07/11/2022 Active Start: 04-08-2022 End: 07-11-2022 inject 1 mg by subcutaneous injection every week semaglutide (OZEMPIC) 1 mg/dose (4 mg/3 mL) pen Indications: Controlled type 2 diabetes mellitus without complication, without long-term current use of insulin (HCC) Inject 1 mg subcutaneously one time a week. 4 Each 3 04/08/2022 07/11/2022 Discontinued Start: 04-08-2022 inject 1 mg by subcu taneous injection every week semaglutide (OZEMPIC) 1 mg/dose (4 mg/3 mL) pen Indications: Controlled type 2 diabetes mellitus without complication, without long-term current use of insulin (HCC) Inject 1 mg subcutaneously one time a week. 4 Each 3 04/08/2022 Active Comment on above: Inject 1 mg subcutan eously one time a week. semaglutide (OZEMPIC) 1 mg/dose (4 mg/3 mL) pen (20 sources) Start: End: inject 1 mg by subcutaneous injection every week semaglutide (OZEMPIC) 1 mg/dose (4 mg/3 mL) pen Indications: Controlled type 2 diabetes mellitus without complication, without long-term current use of insulin (HCC) Inject 1 mg subcutaneously one time a week. 4 Each 3 03/27/2023 11/28/2023 Discontinued Start: 03-27-2023 inject 1 mg by subcu taneous injection every week semaglutide (OZEMPIC) 1 mg/dose (4 mg/3 mL) pen Indications: Controlled type 2 diabetes mellitus without complication, without long-term current use of insulin (HCC) Inject 1 mg subcutaneously one time a week. 4 Each 3 03/27/2023 Active Start: 07-28-2022 End: 03-27-2023 inject 1 mg by subcutaneous injection every week semaglutide (OZEMPIC) 1 mg/dose (4 mg/3 mL) pen Indications: Controlled type 2 diabetes mellitus without complication, without long-term current use of insulin (HCC) Inject 1 mg subcutaneously one time a week. 4 Each 3 07/28/2022 03/27/2023 Discontinued Start: 07-28-2022 inject 1 mg by subcu taneous injection every week semaglutide (OZEMPIC) 1 mg/dose (4 mg/3 mL) pen Indications: Controlled type 2 diabetes mellitus without complication, without long-term current use of insulin (HCC) Inject 1 mg subcutaneously one time a week. 4 Each 3 07/28/2022 Active Comment on above: Inject 1 mg subcutan eously one time a week. spironolactone 25 mg oral tablet (12 sources) Aldosterone Antagonist Start: End: take 1 tablet by mouth once daily spironolactone (ALDACTONE) 25 mg tablet TAKE 1 TABLET BY MOUTH EVERY DAY 90 tablet 3 08/10/2022 10/11/2022 Discontinued Comment on above: Take 1 tablet by lin th once daily. TAKE 1 TABLET BY LIN TH EVERY DAY topiramate 25 mg oral tablet (5 sources) Start: 023 End: take 1 tablet by mouth once daily at bedtime topiramate (TOPAMAX) 25 mg tablet Indications: Acute nonintractable headache, unspecified headache type take 1 tablet by mouth everyday at bedtime 30 tablet 1 02/03/2023 02/24/2023 Discontinued (Adverse Reaction) Comment on above: Take 1 tablet by lin th daily at bedtime. take 1 tablet by lin th everyday at bedtime ursodiol 250 mg oral tablet (14 sources) Bile Acid Start: 022 End: 025 take 1 tablet by mouth twice daily Ursodiol 250 mg tablet Discontinued 250 mg PO TWICE A DAY 180 1 March 22, 2024 4:32pm December 31, 2024 11:05am Problems Active Problems Problem Classification Problem Date Documented Da te Episodic/Chronic Acquired foot deformities (1 source) Toe joint rigid; Translations: [Hallux rigidus, right foot] Chronic Adjustment disorders (20 sources) Adjustment disorder with depressed mood; Translations: [Adjustment disorder with depressed mood] Onset: 5 03-17-2005 Chronic Anxiety disorders (2 sources) Mixed anxiety and depressive disorder; Translations: [Anxiety disorder, unspecified] 03-01-2023 Chronic Asthma (20 sources) Unspecified asthma, uncomplicated; Translations: [Asthma, unspecified type, unspecified] Onset: 5 03-17-2005 Chronic Complication of device; implant or graft (1 source) Arteriosclerosis of coronary artery bypass graft; Translations: [Atherosclerosis of coronary artery bypass graft(s), unspecified, with other forms of angina pectoris] 03-13-2023 Chronic Coronary atherosclerosis and other heart disease (20 sources) Ischemic chest pain; Translations: [Chronic ischemic heart disease, unspecified] Onset: 1 07-13-2020 Chronic Delirium, dementia, and amnestic and other cognitive disorders (20 sources) Frailty; Translations: [Age-related physical debility] Onset: 4 03-01-2024 Chronic Diabetes mellitus with complications (20 sources) Diabetic mononeuropathy; Translations: [Diabetes mellitus due to underlying condition with diabetic mononeuropathy] Onset: 0 Resolved: 1 Chronic Disorders of lipid metabolism (20 sources) Mixed hyperlipidemia; Translations: [Mixed hyperlipidemia] Onset: 5 09-17-2020 Chronic Esophageal disorders (20 sources) Gastroesophageal reflux disease; Translations: [Gastro-esophageal reflux disease without esophagitis] Onset: 5 03-31-2005 Chronic Essential hypertension (20 sources) Essential hypertension; Translations: [Essential (primary) hypertension] Onset: 5 05-26-2020 Chronic Genitourinary symptoms and ill-defined conditions (20 sources) Female stress incontinence; Translations: [Stress incontinence (female) (male)] Onset: 8 08-27-2007 Chronic Genitourinary symptoms and ill-defined conditions (1 source) Scalding pain on urination ; Translations: [Dysuria] Episodic Gout and other crystal arthropathies (1 source) Podagra; Translations: [Gout, unspecified] 11-28-2023 Chronic Headache; including migraine (8 sources) Migraine; Translations: [Migraine, unspecified, not intractable, without status migrainosus] 02-08-2013 Chronic Headache; including migraine (2 sources) Acute headache; Translations: [Acute nonintractable headache, unspecified headache type] 01-12-2023 Episodic Hypertension with complications and secondary hypertension (1 source) Renovascular hypertension; Translations: [Renovascular hypertension] Chronic Immunizations and screening for infectious disease (2 sources) Vaccination needed; Translations: [Encounter for immunization] Onset: 5 01-29-2025 Episodic Malaise and fatigue (1 source) Fatigue; Translations: [Other fatigue] 01-12-2023 Episodic Miscellaneous mental health disorders (1 source) Chronic insomnia; Translations: [Psychophysiologic insomnia] Chronic Nonmalignant breast conditions (20 sources) Pain of breast; Translations: [Mastodynia] Onset: 8 08-27-2007 Episodic Nonspecific chest pain (2 sources) Chest pain; Translations: [Chest pain, unspecified] Onset: 5 01-13-2023 Episodic Nutritional deficiencies (1 source) Vitamin D deficiency; Translations: [Vitamin D deficiency, unspecified] 11-28-2023 Chronic Nutritional deficiencies (1 source) Cobalamin deficiency; Translations: [Deficiency of other specified B group vitamins] 11-28-2023 Episodic Osteoarthritis (20 sources) Localized, primary osteoarthritis of the shoulder region; Translations: [Primary osteoarthritis, unspecified shoulder] Onset: 5 Resolved: 2 04-01-2005 Chronic Other and unspecified benign neoplasm (1 source) History of polyp of colon; Translations: [Personal history of colonic polyps] Episodic Other and unspecified benign neoplasm (1 source) Tubular adenoma ; Translations: [Benign neoplasm, unspecified site] Episodic Other circulatory disease (7 sources) History of transient ischemic attack; Translations: [Personal history of transient ischemic attack (TIA), and cerebral infarction without residual deficits] 02-08-2013 Episodic Other circulatory disease (1 source) Abnormal peripheral pulse; Translations: [Other specified symptoms and signs involving the circulatory and respiratory systems] Episodic Other connective tissue disease (20 sources) Muscle pain; Translations: [Myalgia and myositis, unspecified] 03-31-2005 Episodic Other connective tissue disease (7 sources) Fibromyalgia; Translations: [Fibromyalgia] 02-08-2013 Episodic Other connective tissue disease (3 sources) Pain in right hand; Translations: [Pain in right hand] 08-12-2024 Episodic Other connective tissue disease (2 sources) Pain of left hand; Translations: [Pain in left hand] 08-12-2024 Episodic Other connective tissue disease (4 sources) Trigger thumb of right hand; Translations: [Trigger thumb, right thumb] 08-15-2024 Episodic Other connective tissue disease (1 source) Pain of toe of left foot; Translations: [Pain in left toe(s)] 10-14-2024 Episodic Other connective tissue disease (1 source) Pain of toe of right foot; Translations: [Pain in right toe(s)] 10-14-2024 Episodic Other ear and sense organ disorders (1 source) Hearing loss of left ear; Translations: [Unspecified hearing loss, left ear] Chronic Other female genital disorders (1 source) Vulval irritation; Translations: [Other specified noninflammatory disorders of vulva and perineum] Episodic Other gastrointestinal disorders (20 sources) Irritable bowel syndrome; Translations: [Irritable bowel syndrome without diarrhea] Onset: 08-27-2007 Chronic Other gastrointestinal disorders (7 sources) Diarrhea; Translations: [Diarrhea, unspecified] 10-21-2021 Episodic Other gastrointestinal disorders (3 sources) Diarrhea, unspecified; Translations: [Diarrhea] Episodic Other gastrointestinal disorders (4 sources) Constipation alternates with diarrhea; Translations: [Other specified symptoms and signs involving the digestive system and abdomen] 01-19-2022 Episodic Other gastrointestinal disorders (2 sources) Constipation, unspecified; Translations: [Constipation, unspecified] 04-11-2022 Episodic Other inflammatory condition of skin (20 sources) Psoriatic arthritis; Translations: [Arthropathic psoriasis, unspecified] Onset: Chronic Other inflammatory condition of skin (7 sources) Psoriasis; Translations: [Psoriasis, unspecified] 10-21-2021 Chronic Other injuries and conditions due to external causes (4 sources) Phytobezoar; Translations: [Foreign body of alimentary tract, part unspecified, initial encounter] 12-10-2021 Episodic Other liver diseases (20 sources) Steatosis of liver; Translations: [Fatty (change of) liver, not elsewhere classified] Onset: 2 12-14-2021 Chronic Other liver diseases (15 sources) Fatty (change of) liver, not elsewhere classified; Translations: [Other chronic nonalcoholic liver disease] Onset: 5 Chronic Other lower respiratory disease (1 source) Dyspnea on exertion; Translations: [Other forms of dyspnea] 01-13-2023 Episodic Other nervous system disorders (2 sources) Chronic pain; Translations: [Other chronic pain] 03-01-2023 Chronic Other non-traumatic joint disorders (2 sources) Arthritis of first carpometacarpal joint of left hand 07-02-2024 Chronic Other nutritional; endocrine; and metabolic disorders (7 sources) Obesity; Translations: [Obesity, unspecified] 02-08-2013 Chronic Other nutritional; endocrine; and metabolic disorders (20 sources) Obese class I; Translations: [Obesity, unspecified] Onset: 2 Chronic Other skin disorders (2 sources) Skin nodule; Translations: [Localized swelling, mass and lump, unspecified] Episodic Other skin disorders (1 source) Ingrowing nail of toe of right foot; Translations: [Ingrowing nail] 10-14-2024 Episodic Other upper respiratory disease (20 sources) Chronic rhinitis; Translations: [Chronic rhinitis] Onset: 7 07-12-2006 Chronic Other upper respiratory infections (1 source) Chronic sinusitis; Translations: [Chronic sinusitis, unspecified] 01-13-2023 Chronic Other upper respiratory infections (1 source) Acute upper respiratory infection; Translations: [Acute upper respiratory infection, unspecified] Episodic Otitis media and related conditions (1 source) Acute suppurative otitis media without spontaneous rupture of ear drum; Translations: [Acute suppurative otitis media without spontaneous rupture of ear drum, bilateral] Episodic Peripheral and visceral atherosclerosis (20 sources) Peripheral vascular disease, unspecified; Translations: [Peripheral arterial disease] Onset: 3 02-08-2013 Chronic Prolapse of female genital organs (20 sources) Disorder of rectum; Translations: [Rectocele] Onset: 1 09-10-2010 Chronic Residual codes; unclassified (20 sources) Sleep apnea; Translations: [Sleep apnea, unspecified] Onset: 7 09-11-2006 Chronic Residual codes; unclassified (3 sources) Obstructive sleep apnea syndrome; Translations: [Obstructive sleep apnea (adult) (pediatric)] Chronic Residual codes; unclassified (1 source) Obstructive sleep apnea (adult) (pediatric); Translations: [Obstructive sleep apnea (adult) (pediatric)] Onset: Chronic Residual codes; unclassified (7 sources) Early satiety; Translations: [Early satiety] 10-21-2021 Episodic Residual codes; unclassified (3 sources) Early satiety; Translations: [Early satiety] Episodic Residual codes; unclassified (2 sources) Other specified postprocedural states; Translations: [Other postprocedural status] Onset: 5 01-29-2025 Episodic Unclassified (3 sources) H/O lumpectomy 01-29-2025 Past or Other Problems Problem Classification Problem Date Documented Da te Episodic/Chronic Abdominal pain (20 sources) Left lower quadrant pain; Translations: [Left lower quadrant pain] Onset: 08-27-2007 08-27-2007 Episodic Acquired foot deformities (20 sources) Acquired deformity of toe; Translations: [Other deformities of toe(s) (acquired), unspecified foot] Onset: 09-12-2008 09-12-2008 Episodic Allergic reactions (20 sources) Solar degeneration; Translations: [Other skin changes due to chronic exposure to nonionizing radiation] Onset: 09-15-2010 09-15-2010 Episodic Cardiac dysrhythmias (20 sources) Palpitations; Translations: [Palpitations] Onset: 07-13-2020 07-13-2020 Episodic Diabetes mellitus without complication (20 sources) Type 2 diabetes mellitus without complication; Translations: [Type 2 diabetes mellitus without complications] Onset: 09-28-2010 Resolved: 06-09-2020 Chronic Diabetes mellitus without complication (20 sources) Impaired fasting glycemia; Translations: [Impaired fasting glucose] Onset: 03-17-2005 03-17-2005 Episodic Other aftercare (20 sources) Follow-up status; Translations: [Encounter for other specified aftercare] Onset: 04-29-2005 Resolved: 07-04-2005 07-04-2005 Episodic Other aftercare (20 sources) Surgical follow-up; Translations: [Encounter for follow-up examination after completed treatment for conditions other than malignant neoplasm] Onset: 04-29-2005 Resolved: 07-04-2005 07-04-2005 Episodic Other circulatory disease (20 sources) Telangiectasia disorder; Translations: [Nevus, non-neoplastic] Onset: 09-15-2010 09-15-2010 Episodic Other connective tissue disease (20 sources) Pain in limb; Translations: [Pain in unspecified limb] Onset: 08-29-2008 08-29-2008 Episodic Other connective tissue disease (20 sources) Plantar fascial fibromatosis; Translations: [Plantar fascial fibromatosis] Onset: 06-13-2011 06-13-2011 Episodic Other connective tissue disease (20 sources) Capsulitis; Translations: [Enthesopathy, unspecified] Onset: 02-09-2012 02-09-2012 Episodic Other connective tissue disease (20 sources) Muscle weakness of limb; Translations: [Other symptoms and signs involving the musculoskeletal system] Onset: 03-22-2024 03-01-2024 Episodic Other connective tissue disease (1 source) Pain in right hand; Translations: [Pain of right hand] Onset: 08-29-2008 Episodic Other connective tissue disease (1 source) Pain in left toe(s); Translations: [Pain in toe of left foot] Onset: 10-14-2024 Episodic Other connective tissue disease (1 source) Pain in right toe(s); Translations: [Pain in toe of right foot] Onset: 10-14-2024 Episodic Other connective tissue disease (1 source) Trigger thumb, right thumb; Translations: [Trigger thumb of right hand] Onset: 09-16-2024 Episodic Other connective tissue disease (1 source) Other symptoms and signs involving the musculoskeletal system; Translations: [Weakness of lower extremity, unspecified laterality] Onset: 03-21-2024 Episodic Other female genital disorders (20 sources) Female genital organ symptoms; Translations: [Unspecified condition associated with female genital organs and menstrual cycle] Onset: 08-27-2007 08-27-2007 Episodic Other gastrointestinal disorders (20 sources) Constipation; Translations: [Constipation, unspecified] Onset: 09-10-2010 09-10-2010 Episodic Other inflammatory condition of skin (20 sources) Seborrheic dermatitis; Translations: [Other seborrheic dermatitis] Onset: 09-15-2010 09-15-2010 Episodic Other inflammatory condition of skin (20 sources) Intertrigo; Translations: [Erythema intertrigo] Onset: 09-15-2010 09-15-2010 Episodic Other inflammatory condition of skin (20 sources) Pruritus of skin; Translations: [Unspecified pruritic disorder] Onset: 02-23-2011 02-23-2011 Episodic Other lower respiratory disease (20 sources) Dyspnea; Translations: [Shortness of breath] Onset: 09-14-2020 09-14-2020 Episodic Other nervous system disorders (20 sources) Disorder of the peripheral nervous system; Translations: [Hereditary and idiopathic neuropathy, unspecified] Onset: 11-17-2005 Resolved: 05-26-2020 05-26-2020 Chronic Other non-traumatic joint disorders (20 sources) Soft tissue lesion of shoulder region; Translations: [Other specified joint disorders, unspecified shoulder] Onset: 04-01-2005 Resolved: 01-17-2006 01-17-2006 Episodic Other nutritional; endocrine; and metabolic disorders (20 sources) Obese class II; Translations: [Obesity, unspecified] Onset: 09-14-2020 Resolved: 04-05-2022 09-14-2020 Chronic Other nutritional; endocrine; and metabolic disorders (7 sources) Weight loss; Translations: [Abnormal weight loss] Onset: 03-22-2024 03-01-2024 Episodic Other nutritional; endocrine; and metabolic disorders (18 sources) Weight decreased; Translations: [Abnormal weight loss] Onset: 03-22-2024 03-22-2024 Episodic Other nutritional; endocrine; and metabolic disorders (1 source) Abnormal weight loss; Translations: [Weight loss] Onset: 03-21-2024 Episodic Other screening for suspected conditions (not mental disorders or infectious disease) (20 sources) Patient encounter status; Translations: [Encounter for screening for cardiovascular disorders] Onset: 07-13-2020 07-13-2020 Episodic Other skin disorders (20 sources) Folliculitis; Translations: [Follicular disorder, unspecified] Onset: 09-15-2010 09-15-2010 Episodic Other skin disorders (20 sources) Acne vulgaris; Translations: [Acne vulgaris] Onset: 09-15-2010 09-15-2010 Episodic Other skin disorders (20 sources) Seborrheic keratosis; Translations: [Other seborrheic keratosis] Onset: 09-15-2010 09-15-2010 Episodic Other skin disorders (20 sources) Stucco keratosis; Translations: [Acquired keratosis [keratoderma] palmaris et plantaris] Onset: 09-15-2010 09-15-2010 Episodic Other skin disorders (20 sources) Asteatosis cutis; Translations: [Xerosis cutis] Onset: 09-15-2010 09-15-2010 Episodic Other skin disorders (20 sources) Solar lentigo; Translations: [Other melanin hyperpigmentation] Onset: 09-15-2010 09-15-2010 Episodic Other skin disorders (20 sources) Skin tag; Translations: [Other hypertrophic disorders of the skin] Onset: 02-23-2011 02-23-2011 Episodic Other skin disorders (1 source) Ingrowing nail; Translations: [Ingrowing toenail of right foot] Onset: 10-14-2024 Episodic Residual codes; unclassified (3 sources) Other specified health status; Translations: [Other drug allergy] Onset: 10-29-2024 11-28-2023 Episodic Rheumatoid arthritis and related disease (20 sources) Rheumatoid arthritis, unspecified; Translations: [Rheumatoid arthritis] Resolved: 07-12-2006 07-12-2006 Chronic Sprains and strains (20 sources) Sprain of foot; Translations: [Unspecified sprain of unspecified foot, initial encounter] Onset: 11-17-2005 11-17-2005 Episodic Unclassified (1 source) Statin intolerance 10-29-2024 Viral infection (20 sources) Verruca vulgaris; Translations: [Viral wart, unspecified] Onset: 08-29-2008 08-29-2008 Episodic Results Test Name Value Interpretation Reference Range Facility Basic metabolic 2000 panelon 03-14-2025 Anion gap [Moles/Vol] 10 mmol/L Normal 8-15 [facility] Comment on above: Order Comment: Speci men Type: BLOOD SPECIMENOrdering Facility: [facility] Address: [address] [place] [address] Performed By: #### 2 4321-2 ####[facility] LABCLIA [id number] [place] [address] [place] Calcium [Mass/Vol] 9.6 mg/dL Normal 8.5-10.2 [facility] Comment on above: Order Comment: Speci men Type: BLOOD SPECIMENOrdering Facility: [facility] Address: [address] [place] [address] Performed By: #### 2 4321-2 ####[facility] LABCLIA [id number] [place] [address] [place] Chloride [Moles/Vol] 100 mmol/L Normal 98-107 [facility] Comment on above: Order Comment: Speci men Type: BLOOD SPECIMENOrdering Facility: [facility] Address: [address] [place] [address] Performed By: #### 2 4321-2 ####[facility] LABCLIA [id number] [place] [address] [place] CO2 [Moles/Vol] 28 mmol/L Normal 22-30 [facility] Comment on above: Order Comment: Speci men Type: BLOOD SPECIMENOrdering Facility: [facility] Address: [address] [place] [address] Performed By: #### 2 4321-2 ####[facility] LABCLIA [id number] [place] [address] [place] Creatinine [Mass/Vol] 0.81 mg/dL Normal 0.58-0.96 [facility] Comment on above: Order Comment: Speci men Type: BLOOD SPECIMENOrdering Facility: [facility] Address: [address] [place] [address] Performed By: #### 2 4321-2 ####[facility] LABCLIA [id number] [place] [address] [place] eGFRcr SerPlBld CKD-EPI 2020 74 mL/min/1.73m??? Normal >=60 [facility] Comment on above: Order Comment: Speci men Type: BLOOD SPECIMENOrdering Facility: [facility] Address: [address] [place] [address] Result Comment: Sri mated Glomerular Filtration Rate (eGFR) is calculated using the 2020 CKD-EPI creatinine equation. This equation utilizes serum creatinine, sex, and age as parameters. The creatinine assay has traceable calibration to isotope dilution-mass spectrometry. Refer to KDIGO guidelines for clinical interpretation. In patients with unstable renal function, e.g. those with acute kidney injury, the eGFR may not accurately reflect actual GFR. Performed By: #### 2 4321-2 ####[facility] LABCLIA [id number] [place] [address] [place] Glucose [Mass/Vol] 105 mg/dL High 74-99 [facility] Comment on above: Order Comment: Speci men Type: BLOOD SPECIMENOrdering Facility: [facility] Address: [address] [place] [address] Result Comment: The [place] [employer] (ADA) provides guidance for cutoff values for fasting glucose and random glucose. The ADA defines fasting as no caloric intake for at least 8 hours. Fasting plasma glucose results between 100 to 125 mg/dL indicate increased risk for diabetes (prediabetes). Fasting plasma glucose results greater than or equal to 126 mg/dL meet the criteria for diagnosis of diabetes. In the absence of unequivocal hyperglycemia, results should be confirmed by repeat testing. In a patient with classic symptoms of hyperglycemia or hyperglycemic crisis, random plasma glucose results greater than or equal to 200 mg/dL meet the criteria for diagnosis of diabetes. Reference: Standards of Medical Care in Diabetes 2016, [place] [employer]. Diabetes Care. 2016.39(Suppl 1). Performed By: #### 2 4321-2 ####[facility] LABCLIA [id number] [place] [id number] [place] Potassium [Moles/Vol] 4.3 mmol/L Normal 3.7-5.1 [facility] Comment on above: Order Comment: Speci men Type: BLOOD SPECIMENOrdering Facility: [facility] Address: [address] [id number] Performed By: #### 2 4321-2 ####[facility] LABCLIA [id number] [place] [id number] [place] Sodium [Moles/Vol] 138 mmol/L Normal 136-144 [facility] Comment on above: Order Comment: Speci men Type: BLOOD SPECIMENOrdering Facility: [facility] Address: [address] [place] [address] Performed By: #### 2 4321-2 ####[facility] LABCLIA [id number] [address] Urea nitrogen [Mass/Vol] 18 mg/dL Normal 7-21 [facility] Comment on above: Order Comment: Shane delia Type: BLOOD SPECIMENOrdering Facility: [facility] Address: [address] [place] [address] Performed By: #### 2 4321-2 ####[facility] LABCLIA [id number] [address] [place] CARD CATH DIAGNOSTICon 02-28 CARD CATH DIAGNOSTIC Site Id: [facility] Lab #: DEFAULT Study Date: 02/28/2025 Start Time: End Time: Name Duty Reinaldo Choi MD PROC MD 1 Iain Hoffman PROC SCRUB 1 Aj Perry RN PROC CIRC 1 Arlene Crowe RN PROC RECORD 1 + + PATIENT INFORMATION + + Name: GABBY [facility] : 1945 Age: 79 years Gender: Height: 60 in / 152 cm Weight: 140.12 lb / 63.56 kg BMI: 27.37 kg/m BSA: 1.60 m + --+ CLINICAL HISTORY/INDICATIONS + --+ Abnormal ECG and Dyspnea. Procedural Status: Elective CAD Presentation: Symptoms Unlikely to be Ischemic Angina Classification (within 2 weeks): CCS I No Heart Failure Clinical History: 79 FEMALE with exertional shortness of breath for coronory angiography + + DIAGNOSTIC FINDINGS + + Coronary Anatomy: Right Dominant Injection Site(s): Coronary Artery LMT: _ The LMT is normal. LAD: _ The LAD has moderate diffuse disease. _ The mid LAD - moderate diffuse disease. LCX: _ The Circumflex is normal. RAMUS: _ Ramus Status: Not Applicable. RCA: _ The RCA has moderate diffuse disease. _ The proximal RCA is narrowed 50 % - moderate diffuse disease. FFR Results:Adenosine FFR 0.88 + + IMPRESSION/PLAN + + Impression:1. Moderate RCA and LAD disease. 2. Normal LV size and function . 3. Negative FFR in LAD. Recommended Treatment: Medical Therapy. Plan: Medical therapy + + HEMODYNAMICS - XPER + + + +------+-- ---+-------+------+------+- -----+ Measurement Name Sys Jama End Jama Mean A Wave V Wave + +------+-- ---+-------+------+------+- -----+ AO 230.00 76.00 126.00 + +------+-- ---+-------+------+------+- -----+ AO 177.00 63.00 114.00 + +------+-- ---+-------+------+------+- -----+ AO 167.00 76.00 115.00 + +------+-- ---+-------+------+------+- -----+ LV 187.00 0.00 23.00 + +------+-- ---+-------+------+------+- -----+ LVp 176.00 -7.00 24.00 + +------+-- ---+-------+------+------+- -----+ AOp 179.00 58.00 111.00 + +------+-- ---+-------+------+------+- -----+ AO 177.00 68.00 115.00 + +------+-- ---+-------+------+------+- -----+ AO 191.00 83.00 129.00 + +------+-- ---+-------+------+------+- -----+ Oximetry: + +---- ---+ +--+---+-- ---+ Time Site O2 Saturation O2 PO2 HB + +---- ---+ +--+---+-- ---+ 02/28/2025 9:37:21 AM SYS ART 13.30 + +---- ---+ +--+---+-- ---+ 02/28/2025 9:37:21 AM SYS CUCO 13.30 + +---- ---+ +--+---+-- ---+ 02/28/2025 9:37:21 AM PUL ART 13.30 + +---- ---+ +--+---+-- ---+ 02/28/2025 9:37:21 AM PUL CUCO 13.30 + +---- ---+ +--+---+-- ---+ + --------+ ADVERSE OUTCOME(s)/COMPLICATION(s) + --------+ None + ----+ PROCEDURAL & TECHNICAL DETAILS + ----+ Date Time Description 02/28/2025 12:00:00 AM Left Heart Cath 02/28/2025 12:00:00 AM LEFT VENTRICULAR ANGIOGRAPHY 02/28/2025 12:00:00 AM WAVE WIRE *MEDICAL HISTORY* CAD Presentation: Symptoms Unlikely to be Ischemic Angina Classification (within 2 weeks): CCS I No Heart Failure Family History of CAD: Yes Congenital Heart Disease: No Coronary Artery Disease: Yes Dyslipidemia: Yes Hypertension: Yes Myocarditis: No Pericarditis: No Syncope: No Arrhythmia: None Diabetes Mellitus: No Chronic Lung Disease: No Home Oxygen: No Hostile Chest: No Immunocompromised: No Myocardial Infarction: No Creatinine > 2: No Dialysis: Currently not on dialysis Left Ventricle EF: 60 on 02/28/2025 by Cath. LVEF at Discharge: 60.00 % *HISTORY OF ARTERIAL DISEASE* Peripheral Arterial Disease: No Cerebrovascular Disease: No TIA: No Stroke: No Carotid ASO: No Vertebral ASO: No Procedure Details: Blood Loss: < 30ml Specimen: No Specimen Obtained Recent PCI Failure of Treated Vessel: Contrast: Radiation: Procedure performed under Fluoroscopic Guidance Total Dose 202.08 mGy Dose Area Product 17.48 Gy*cm Total Exposure Time 357.93 sec Baseline: HGB: Creatinine: Glucose: INR: Conscious Sedation Summary: Moderate sedation consisting of continuous ECG, pulse oxymetry and cardiopulmonary monitoring was performed by the Cardiology Nurse, overseen by the performing physician(s). Attending Physician Presence Attestation: Entire Procedure Electronicall (more content not included)... [facility] GUI[facility]EN ([id number]) 1945 F [facility] Date Time Provider Department 02/28/25 REINALDO CHOI During your visit today, we recorded the following information about you: Marietta Hendrickson 02/28/2025 4:03 PM Signed Patient calling in to schedule her post op with Dr. Choi for 3-4 weeks. However, he does not have any openings in [place] or [place] in this time frame. Please review and advise patient. Marietta Hendrickson February 28, 2025 4:02 PM Maria A Thayer MA 03/06/2025 10:49 AM Signed Pt had heart cath 02/28. When do you want us to schedule follow up. Pt is stating 3-4 weeks. Please review and advise. BEL Hernandez Laurie, MA 03/07/2025 3:43 PM Signed Pt states she was to have follow up in 3 weeks, Lab work in 1 week, and some kind of kidney scan. There are no orders. Advised pt that we would have Dr. Choi address all of this on Monday when he is physically here in [place]. She is asking for a phone call once everything is in place. BEL Hernandez Kim E, LPN 03/10/2025 2:57 PM Signed left message to notify patient that lab work orders are in the computer and may come in to complete them. Also, wants to see patient in office appointment made for 04/07/25 at 2:20pm. Nella Navarrete LPN Allergies As of Date: 02/28/2025 Noted Allergy Reaction AMLODIPINE 09/17/2020 7 - Swelling BIAXIN (CLARITHROMYCIN) 08/27/2007 2 - Rash METFORMIN 11/19/2009 6 - Diarrhea Comments: ER formulation caused symptoms at 1 tablet per day SPIRONOLACTONE 10/11/2022 14 - Other: See Comments Comments: lightheaded and dizzy [id number] REDUCTASE INHIBIT*08/08/2012 5 - Intolerance Comments: myalgia and diarrhea Date Reviewed: 02/28/2025 Reviewed by: Arlene Crowe RN - Fully Assessed Reason for Visit: Appointment [186] Prescriptions as of 03/10/2025 - aspirin 81 mg cap Take 324 mg by mouth one time only. For heart cath - carvedilol (COREG) 3.125 mg tablet Take 2 tablets by mouth two times a day with meals. - hydroCHLOROthiazide 25 mg tablet Take 1 tablet by mouth once daily. - REPATHA PUSHTRONEX 420 mg/3.5 mL wearable injector Use 3.5 mL by under the skin once every month. - valACYclovir (VALTREX) 500 mg tablet Take 1 tablet by mouth once daily. - betamethasone dipropionate, augmented (DIPROLENE) 0.05 % cream Apply to affected area. APPLY TO AFFECTED AREAS OF RASH ON THE BODY 1-2 TIMES DAILY WHEN FLARED - semaglutide (OZEMPIC) 0.25 mg or 0.5 mg (2 mg/3 mL) pen Inject 0.25 mg subcutaneously one time a week. - hydrocortisone 2.5 % cream abdomenal areas as needed - losartan (COZAAR) 100 mg tablet Take 1 tablet by mouth once daily. - DULoxetine (CYMBALTA) 30 mg capsule Take 1 capsule by mouth once daily. - pantoprazole DR (PROTONIX) 20 mg tablet Take 20 mg by mouth once daily. - blood sugar diagnostic (BLOOD GLUCOSE TEST) test strip Test blood sugar(s) 1 times daily. Dx: Type 2 DM - Controlled E11.9 Insulin: No - Lancets lancets Test blood sugar(s) 1 times daily. Dx: Type 2 DM - Controlled E11.9 Insulin: No - Blood Sugar Diagnostic, Drum (ACCU-CHEK COMPACT TEST) Strp TEST BLOOD SUGAR ONCE DAILY. 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] 04/01/2005 impingement syndrome right shoulder [M25.819] 04/01/2005 07/04/2005 ROTATOR CUFF SYND NOS [M71.9, M67.919] 04/01/2005 07/04/2005 AFTERCARE NOS [Z51.89] 04/29/2005 07/04/2005 SURGERY FOLLOWUP NOS [Z09] 04/29/2005 07/04/2005 Hereditary and idiopathic peripheral neuropathy*11/17/2005 05/26/2020 SPRAIN OF FOOT NOS [S93.609A] 11/17/2005 SHOULDER REGION DIS NEC [M25.819] 01/17/2006 01/17/2006 impingement syndrome [M25.819] 01/17/2006 CHRONIC RHINITIS [J31.0] 07/12/2006 Unspecified sleep apnea [G47.30] 09/11/2006 IMPAIRED FASTING GLUCOSE [R73.09] 08/17/2007 FEMALE GENITAL SYMPTOMS NOS [N94.9] 08/27/2007 ABDOMINAL PAIN LLQ [R10.32] 08/27/2007 ABDOMINAL PAIN RLQ [R10.31] 08/27/2007 FEMALE STRESS INCONTINENCE [N39.3] 08/27/2007 URGE INCONTINENCE [N39.41] 08/27/2007 MASTODYNIA [N64.4] 08/27/2007 IRRITABLE COLON [K58.9] 08/27/2007 VIRAL WARTS NOS [B07.9] 08/29/2008 Generalized osteoarthrosis, unspecified site [M*08/29/2008 04/05/2022 PAIN IN LIMB [M79.609] 08/29/2008 ACQ DEFORMITY OF TOE NEC [M20.5X9] 09/12/2008 Uncontrolled type 2 diabetes mellitus with hype*04/01/2010 06/09/2020 Unspecified constipation (more content not included)... Normal [facility] HISTORY PHYSICALon HISTORY PHYSICAL HNO ID: [id number] Author: REINALDO CHOI MD Service: Cardiovascular Surgery Author Type: Physician Type: H&P Filed: 02/28/2025 07:42 Note Text: UPDATED HANDP PRE-CARDIAC CATHETERIZATION SERVICE DATE: 02/28/2025 SERVICE TIME: 7:41 am PHYSICAL EXAM MUST BE COMPLETED ON ADMISSION The History and Physical (completed in the past 30 days) has been reviewed and the patient has been examined. The contents accurately reflect the patient's condition with the following additions or revisions since the HANDP was completed. Examination indicates no changes. Planned Procedure: Left Heart Cath + Possible PCI Primary Indication for Procedure: Angina Equivalent High Risk Features: History of Prior CABG: No History of Prior PCI: No Cardiomyopathy: No Anti-ischemic Meds in Past 2 Weeks: Beta blockers Ejection Fraction: 60% from Previous Echo Risk Appropriateness: Angina Class in Past 2 Weeks: Class II - Slight limitation of ordinary activity Cardiogenic Shock: NoHeart Failure: None Stress Test Performed: None EKG Assessment: Normal Family History of Premature CAD: Father, age 60 Evaluation for Preop Clearance: Non-Cardiac Surgery, Functional Capacity; >= 4 METS with symptoms, Surgical Risk; Low HISTORY OF BLEEDING: No This HANDP can be found in the attached. SIGNATURE: Reinaldo Choi MD PATIENT NAME: Gabby Guillen DATE: February 28, 2025 TIME: 7:41 AM Normal [facility] 02-24-2025 CNPN Telephone ([employer]) GABBY GUILLEN ([id number]) 1945 F T Date Time Provider Department 02/24/25 REINALDO CHOI During your visit today, we recorded the following information about you: Cata Nichols LPN 02/24/2025 9:30 AM Signed Patient called. Verified name and date of . Patient is scheduled for heart cath on 02/28/2025 and is to do labs prior but orders have not been signed yet. Please sign orders and let patient know so she can get them done. Please review and advise. NAIF Fernandes Danelle, RN 02/24/2025 5:[address] Choi patient had labs done on 02/19/25 and does not need to have them drawn again before heart cath. Patient called and notified. Sheri Vidal RN Allergies As of Date: 02/24/2025 Noted Allergy Reaction AMLODIPINE 09/17/2020 7 - Swelling BIAXIN (CLARITHROMYCIN) 08/27/2007 2 - Rash METFORMIN 11/19/2009 6 - Diarrhea Comments: ER formulation caused symptoms at 1 tablet per day SPIRONOLACTONE 10/11/2022 14 - Other: See Comments Comments: lightheaded and dizzy [id number] REDUCTASE INHIBIT*08/08/2012 5 - Intolerance Comments: myalgia and diarrhea Date Reviewed: 02/12/2025 Reviewed by: Caitlyn Bruce MA - Fully Assessed Reason for Visit: Orders [681] Orders for labs need signed before heart catheterization [Other] Prescriptions as of 02/24/2025 - REPATHA PUSHTRONEX 420 mg/3.5 mL wearable injector Use 3.5 mL by under the skin once every month. - valACYclovir (VALTREX) 500 mg tablet Take 1 tablet by mouth once daily. - betamethasone dipropionate, augmented (DIPROLENE) 0.05 % cream Apply to affected area. APPLY TO AFFECTED AREAS OF RASH ON THE BODY 1-2 TIMES DAILY WHEN FLARED - semaglutide (OZEMPIC) 0.25 mg or 0.5 mg (2 mg/3 mL) pen Inject 0.25 mg subcutaneously one time a week. - carvedilol (COREG) 3.125 mg tablet Take 1 tablet by mouth two times a day with meals. - hydrocortisone 2.5 % cream abdomenal areas as needed - losartan (COZAAR) 100 mg tablet Take 1 tablet by mouth once daily. - DULoxetine (CYMBALTA) 30 mg capsule Take 1 capsule by mouth once daily. - pantoprazole DR (PROTONIX) 20 mg tablet Take 20 mg by mouth once daily. - blood sugar diagnostic (BLOOD GLUCOSE TEST) test strip Test blood sugar(s) 1 times daily. Dx: Type 2 DM - Controlled E11.9 Insulin: No - Lancets lancets Test blood sugar(s) 1 times daily. Dx: Type 2 DM - Controlled E11.9 Insulin: No - Blood Sugar Diagnostic, Drum (ACCU-CHEK COMPACT TEST) Strp TEST BLOOD SUGAR ONCE DAILY. 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] 04/01/2005 impingement syndrome right shoulder [M25.819] 04/01/2005 07/04/2005 ROTATOR CUFF SYND NOS [M71.9, M67.919] 04/01/2005 07/04/2005 AFTERCARE NOS [Z51.89] 04/29/2005 07/04/2005 SURGERY FOLLOWUP NOS [Z09] 04/29/2005 07/04/2005 Hereditary and idiopathic peripheral neuropathy*11/17/2005 05/26/2020 SPRAIN OF FOOT NOS [S93.609A] 11/17/2005 SHOULDER REGION DIS NEC [M25.819] 01/17/2006 01/17/2006 impingement syndrome [M25.819] 01/17/2006 CHRONIC RHINITIS [J31.0] 07/12/2006 Unspecified sleep apnea [G47.30] 09/11/2006 IMPAIRED FASTING GLUCOSE [R73.09] 08/17/2007 FEMALE GENITAL SYMPTOMS NOS [N94.9] 08/27/2007 ABDOMINAL PAIN LLQ [R10.32] 08/27/2007 ABDOMINAL PAIN RLQ [R10.31] 08/27/2007 FEMALE STRESS INCONTINENCE [N39.3] 08/27/2007 URGE INCONTINENCE [N39.41] 08/27/2007 MASTODYNIA [N64.4] 08/27/2007 IRRITABLE COLON [K58.9] 08/27/2007 VIRAL WARTS NOS [B07.9] 08/29/2008 Generalized osteoarthrosis, unspecified site [M*08/29/2008 04/05/2022 PAIN IN LIMB [M79.609] 08/29/2008 ACQ DEFORMITY OF TOE NEC [M20.5X9] 09/12/2008 Uncontrolled type 2 diabetes mellitus with hype*04/01/2010 06/09/2020 Unspecified constipation [K59.00] 09/10/2010 Rectocele [N81.6] 09/10/2010 Folliculitis [L73.9] 09/15/2010 Acne vulgaris [L70.0] 09/15/2010 Other seborrheic dermatitis [L21.8] 09/15/2010 Other seborrheic keratosis [L82.1] 09/15/2010 Stucco keratoses [L82.1] 09/15/2010 Eczema intertrigo [L30.4] 09/15/2010 Xerosis cutis [L85.3] 09/15/2010 Actinic Damage//Sun-damaged skin [L57.8] 09/15/2010 Solar lentigines [L81.4] 09/15/2010 Telangiectasia [I78.1] 09/15/2010 DM (diabetes mellitus) (HCC) [E11.9] 09/28/2010 06/09/2020 Pruritus - disorder 02/23/2011 Cutaneous skin tags [L91.8] 02/23/2011 Plantar fascial fibromatosis [M72.2] 06/13/2011 Capsulitis [M77 (more content not included)... Normal [facility] CBC panel Auto (Bld)on 02-19 Erythrocyte distribution width (RBC) [Ratio] 13.2 % Normal 11.5-15.0 [facility] Comment on above: Order Comment: Speci men Type: BLOOD SPECIMENOrdering Facility: [facility] Address: [address] [place] [address] Performed By: #### 5 8410-2 ####[facility] [id number] [place] [address] [place] Hematocrit (Bld) [Volume fraction] 38.7 % Normal 36.0-46.0 [facility] Comment on above: Order Comment: Speci men Type: BLOOD SPECIMENOrdering Facility: [facility] Address: [address] [place] [address] Performed By: #### 5 8410-2 ####[facility] [id number] [place] [address] [place] Hemoglobin (Bld) [Mass/Vol] 13.3 g/dL Normal 11.5-15.5 [facility] Comment on above: Order Comment: Speci men Type: BLOOD SPECIMENOrdering Facility: [facility] Address: [address] [place] [address] Performed By: #### 5 8410-2 ####[facility] LEDAWNCLIA [id number] [address] [place] MCH (RBC) [Entitic mass] 30.0 pg Normal 26.0-34.0 [facility] Comment on above: Order Comment: Speci men Type: BLOOD SPECIMENOrdering Facility: [facility] Address: [address] [place] [address] Performed By: #### 5 8410-2 ####[facility] [id number] [address] [place] MCHC (RBC) [Mass/Vol] 34.4 g/dL Normal 30.5-36.0 [facility] Comment on above: Order Comment: Speci men Type: BLOOD SPECIMENOrdering Facility: [facility] Address: [address] [place] [address] Performed By: #### 5 8410-2 ####[facility] [id number] [address] [place] MCV (RBC) [Entitic vol] 87.4 fL Normal 80.0-100.0 [facility] Comment on above: Order Comment: Speci men Type: BLOOD SPECIMENOrdering Facility: [facility] Address: [address] [place] [address] Performed By: #### 5 8410-2 ####[facility]CA [id number] [address] [place] Nucleated RBC (Bld) [#/Vol] 10*3/uL Normal <0.01 [facility] Comment on above: Order Comment: Speci men Type: BLOOD SPECIMENOrdering Facility: [facility] Address: [address] [place] [address] Performed By: #### 5 8410-2 ####[facility] LAZARANCTALIAA [id number] [place] [address] [place] Platelet mean volume (Bld) [Entitic vol] 9.8 fL Normal 9.0-12.7 [facility] Comment on above: Order Comment: Speci men Type: BLOOD SPECIMENOrdering Facility: [facility] Address: [address] [place] [address] Performed By: #### 5 8410-2 ####[facility]NCJEFFREY [id number] [place] [address] [place] Platelets (Bld) [#/Vol] 270 10*3/uL Normal 150-400 [facility] Comment on above: Order Comment: Speci men Type: BLOOD SPECIMENOrdering Facility: [facility] Address: [address] [place] [address] Performed By: #### 5 8410-2 ####[facility] [id number] [place] [address] [place] RBC (Bld) [#/Vol] 4.43 10*6/uL Normal 3.90-5.20 [facility] Comment on above: Order Comment: Speci men Type: BLOOD SPECIMENOrdering Facility: [facility] Address: [address] [place] [address] Performed By: #### 5 8410-2 ####[facility] [id number] [place] [address] [place] WBC (Bld) [#/Vol] 6.12 10*3/uL Normal 3.70-11.00 [facility] Comment on above: Order Comment: Speci men Type: BLOOD SPECIMENOrdering Facility: [facility] Address: [address] [place] [address] Performed By: #### 5 8410-2 ####[facility] MILLTOWNCLIA [id number] [place] [address] [place] Comprehensive metabolic 2000 panelon 02-19-2025 Albumin [Mass/Vol] 4.2 g/dL Normal 3.9-4.9 [facility] Comment on above: Order Comment: Speci men Type: BLOOD SPECIMENOrdering Facility: [facility] Address: [address] [place] [address] Performed By: #### 2 4323-8 ####[facility] MILLTOWNCLIA [id number] [place] [address] [place] ALP [Catalytic activity/Vol] 109 U/L Normal 34-123 [facility] Comment on above: Order Comment: Speci men Type: BLOOD SPECIMENOrdering Facility: [facility] Address: [address] [place] [address] Performed By: #### 2 4323-8 ####[facility]CLIA [id number] [place] [address] [place] ALT [Catalytic activity/Vol] 11 U/L Normal 7-38 [facility] Comment on above: Order Comment: Speci men Type: BLOOD SPECIMENOrdering Facility: [facility] Address: [address] [place] [address] Performed By: #### 2 4323-8 ####[facility] MILLTOWNCLIA [id number] [place] [address] [place] Anion gap [Moles/Vol] 12 mmol/L Normal 8-15 [facility] Comment on above: Order Comment: Speci men Type: BLOOD SPECIMENOrdering Facility: [facility] Address: [address] [place] [address] Performed By: #### 2 4323-8 ####[facility] MILLTOWNCLIA [id number] [place] [address] [place] AST [Catalytic activity/Vol] 18 U/L Normal 13-35 [facility] Comment on above: Order Comment: Speci men Type: BLOOD SPECIMENOrdering Facility: [facility] Address: [address] [place] [address] Performed By: #### 2 4323-8 ####[facility]LLASWNCLI [id number] [place] [address] [place] Bilirubin [Mass/Vol] 1.0 mg/dL Normal 0.2-1.3 [facility] Comment on above: Order Comment: Speci men Type: BLOOD SPECIMENOrdering Facility: [facility] Address: [address] [place] [address] Performed By: #### 2 4323-8 ####[facility] [id number] [place] [address] [place] Calcium [Mass/Vol] 9.8 mg/dL Normal 8.5-10.2 [facility] Comment on above: Order Comment: Speci men Type: BLOOD SPECIMENOrdering Facility: [facility] Address: [address] [place] [address] Performed By: #### 2 4323-8 ####[facility]ERNCLI [id number] [place] [address] [place] Chloride [Moles/Vol] 103 mmol/L Normal 98-107 [facility] Comment on above: Order Comment: Speci men Type: BLOOD SPECIMENOrdering Facility: [facility] Address: [address] [place] [address] Performed By: #### 2 4323-8 ####[facility]ERNCLI [id number] [place] [address] [place] CO2 [Moles/Vol] 25 mmol/L Normal 22-30 [facility] Comment on above: Order Comment: Speci men Type: BLOOD SPECIMENOrdering Facility: [facility] Address: [address] [place] [address] Performed By: #### 2 4323-8 ####[facility] LEDABAINVILLENCJEFFREY [id number] [place] [address] [place] Creatinine [Mass/Vol] 0.93 mg/dL Normal 0.58-0.96 [facility] Comment on above: Order Comment: Shane men Type: BLOOD SPECIMENOrdering Facility: [facility] Address: [address] [place] [address] Performed By: #### 2 4323-8 ####[facility] [id number] [place] [address] [place] eGFRcr SerPlBld CKD-EPI 2020 63 mL/min/1.73m??? Normal >=60 [facility] Comment on above: Order Comment: Shane lin Type: BLOOD SPECIMENOrdering Facility: [facility] Address: [address] [place] [address] Result Comment: Sri mated Glomerular Filtration Rate (eGFR) is calculated using the 2020 CKD-EPI creatinine equation. This equation utilizes serum creatinine, sex, and age as parameters. The creatinine assay has traceable calibration to isotope dilution-mass spectrometry. Refer to KDIGO guidelines for clinical interpretation. In patients with unstable renal function, e.g. those with acute kidney injury, the eGFR may not accurately reflect actual GFR. Performed By: #### 2 4323-8 ####[facility] [id number] [place] [address] [place] Glucose [Mass/Vol] 113 mg/dL High 74-99 [facility] Comment on above: Order Comment: Shane men Type: BLOOD SPECIMENOrdering Facility: [facility] Address: [address] [place] [address] Result Comment: The [place] Diabetes Association (ADA) provides guidance for cutoff values for fasting glucose and random glucose. The ADA defines fasting as no caloric intake for at least 8 hours. Fasting plasma glucose results between 100 to 125 mg/dL indicate increased risk for diabetes (prediabetes). Fasting plasma glucose results greater than or equal to 126 mg/dL meet the criteria for diagnosis of diabetes. In the absence of unequivocal hyperglycemia, results should be confirmed by repeat testing. In a patient with classic symptoms of hyperglycemia or hyperglycemic crisis, random plasma glucose results greater than or equal to 200 mg/dL meet the criteria for diagnosis of diabetes. Reference: Standards of Medical Care in Diabetes 2016, [place] Diabetes Association. Diabetes Care. 2016.39(Suppl 1). Performed By: #### 2 4323-8 ####[facility] MANUEL MILLTOWNCLIA [id number] [place] [address] [place] Potassium [Moles/Vol] 4.5 mmol/L Normal 3.7-5.1 [facility] Comment on above: Order Comment: Speci men Type: BLOOD SPECIMENOrdering Facility: [facility] Address: [address] [place] [address] Performed By: #### 2 4323-8 ####[facility]WNCLIA [id number] [place] [address] [place] Protein [Mass/Vol] 7.0 g/dL Normal 6.3-8.0 [facility] Comment on above: Order Comment: Speci men Type: BLOOD SPECIMENOrdering Facility: [facility] Address: [address] [place] [address] Performed By: #### 2 4323-8 ####[facility]WNCLIA [id number] [place] [address] [place] Sodium [Moles/Vol] 140 mmol/L Normal 136-144 [facility] Comment on above: Order Comment: Speci men Type: BLOOD SPECIMENOrdering Facility: [facility] Address: [address] [place] [address] Performed By: #### 2 4323-8 ####[facility] MILLWNCLIA [id number] [place] [address] [place] Urea nitrogen [Mass/Vol] 24 mg/dL High 7-21 [facility] Comment on above: Order Comment: Shane lin Type: BLOOD SPECIMENOrdering Facility: [facility] Address: [address] [place] [address] Performed By: #### 2 4323-8 ####[facility] MANUEL [facility]AD[facility] [id number] [place] [address] [place] HbA1c (Bld)on 02-19-2025 Average glucose Estimated from glycated hemoglobin (Bld) [Mass/Vol] 94 mg/dL Normal [facility] Comment on above: Order Comment: Shane lin Type: BLOOD SPECIMENOrdering Facility: [facility] Address: [address] [place] [address] Result Comment: eAG: (Estimated average glucose) is a calculated value from HgbA1c and is customer retention representative of the average blood glucose level in the last 2-3 month period. Performed By: #### 5 5454-3 ####[facility] LABCLIA [id number] [address] [place] HbA1c (Bld) [Mass fraction] 4.9 % Normal 4.3-5.6 [facility] Comment on above: Order Comment: Shane lin Type: BLOOD SPECIMENOrdering Facility: [facility] Address: [address] [place] [address] Result Comment: Amer [place] Diabetes Association guidelines indicate that patients with HgbA1c in the range 5.7-6.4% are at increased risk for development of diabetes, and intervention by lifestyle modification may be beneficial. HgbA1c greater or equal to 6.5% is considered diagnostic of diabetes. Performed By: #### 5 5454-3 ####[facility] LABIA [id number] [place] [id number] [place] Lipid 1996 panelon 5 Cholesterol [Mass/Vol] 198 mg/dL Normal <200 [facility] Comment on above: Order Comment: Shane men Type: BLOOD SPECIMENOrdering Facility: [facility] Address: [address] [place] [address] Result Comment: <200 mg/dL, Desirable 200-239 mg/dL, Borderline high >239 mg/dL, High Performed By: #### 2 4331-1 ####[facility] LABCLIA [id number] [facility] [address], [facility] [id number] [place] [address] [place]#### 3016-3 ####[facility] LABCLIA [id number] [facility] [address], [place] [address] [place] Cholesterol in HDL [Mass/Vol] 57 mg/dL Normal >39 [facility] Comment on above: Order Comment: Speci men Type: BLOOD SPECIMENOrdering Facility: [facility] Address: [address] [place] [address] Result Comment: 40-5 9 mg/dL, Acceptable >59 mg/dL, High: Negative risk factor for coronary heart disease <40 mg/dL, Low: Positive risk factor for coronary heart disease Performed By: #### 2 4331-1 ####[facility] LABCLIA [id number] [address], [address] STATES OF [facility] [id number] [place] [address] [place]#### 3016-3 ####[facility] LABCLIA [id number] [facility] [address], [facility] [place] Cholesterol in LDL [Mass/Vol] 127 mg/dL High <100 [facility] Comment on above: Order Comment: Speci men Type: BLOOD SPECIMENOrdering Facility: [facility] Address: [address] [place] [address] Result Comment: <100 mg/dL, Optimal 100-129 mg/dL, Near optimal/above optimal 130-159 mg/dL, Borderline high 160-189 mg/dL, High >189 mg/dL, Very high Secondary prevention optimal LDL Cholesterol levels are recommended to be <70 mg/dL LDL cholesterol is calculated using the Morrissey-NIH equation. Performed By: #### 2 4331-1 ####[facility] LABCLIA [id number] [address] [place] [address] [facility] [id number] [address] [place]#### 3016-3 ####[facility] LABIA [id number] [address] [place] [address] [place] Cholesterol in LDL/Cholesterol in HDL [Mass ratio] 2.23 {ratio} Normal <2.54 [facility] Comment on above: Order Comment: Speci men Type: BLOOD SPECIMENOrdering Facility: [facility] Address: [address] [place] [address] Result Comment: Reflivia chang: 1. National Cholesterol Education Program ATP III Guideline At-A-Glance Quick Desk Reference: National Heart, Lung, and Blood [place]. National Institutes of Health. 2001: NIH Publication No. 01-3305. 2. An International Atherosclerosis Society position paper: global recommendations for the management of dyslipidemia: executive summary, Atherosclerosis. 2014: 232(2):410-413. Performed By: #### 2 4331-1 ####[facility] LABIA [id number] [address] [place] [address] [facility] [id number] [address] [place]#### 3016-3 ####[facility] LABIA [id number] [address] [place] [address] [place] Cholesterol in VLDL [Mass/Vol] 13 mg/dL Normal <30 [facility] Comment on above: Order Comment: Speci men Type: BLOOD SPECIMENOrdering Facility: [facility] Address: [address] [place] [address] Performed By: #### 2 4331-1 ####[facility] LABCLIA [id number] [address] [id number] [place] [address] [place]#### 3016-3 ####[facility] LABCLIA [id number] [place] [address] [place] Cholesterol non HDL [Mass/Vol] 141 mg/dL High <130 [facility] Comment on above: Order Comment: Speci men Type: BLOOD SPECIMENOrdering Facility: [facility] Address: [address] [place] [address] Result Comment: <130 mg/dL, Optimal 130-159 mg/dL, Near optimal/above optimal 160-189 mg/dL, Borderline high 190-219 mg/dL, High >219 mg/dL, Very high Secondary prevention optimal non HDL Cholesterol levels are recommended to be <100 mg/dL Performed By: #### 2 4331-1 ####[facility] LABIA [id number] [address] [id number] [place] [address] [place]#### 3016-3 ####[facility] LABCLIA [id number] [place] [address] [place] Cholesterol.total/Cho lesterol in HDL [Mass ratio] 3.47 {ratio} Normal <5.10 [facility] Comment on above: Order Comment: Speci men Type: BLOOD SPECIMENOrdering Facility: [facility] Address: [address] [place] [address] Performed By: #### 2 4331-1 ####[facility] LABCLIA [id number] [address] OF [facility] [id number] [place] [address] [place]#### 3016-3 ####[facility] LABCLIA [id number] [place] [address] [place] FASTING TIME 12 hrs Normal [facility] Comment on above: Order Comment: Speci men Type: BLOOD SPECIMENOrdering Facility: [facility] Address: [address] [place] [address] Performed By: #### 2 4331-1 ####[facility] LABCLIA [id number] [place] [address] [place] [facility] [id number] [place] [address] [place]#### 3016-3 ####[facility] LABCLIA [id number] [place] [address] [place] Triglyceride [Mass/Vol] 76 mg/dL Normal <150 [facility] Comment on above: Order Comment: Speci men Type: BLOOD SPECIMENOrdering Facility: [facility] Address: [address] [place] [address] Result Comment: <150 mg/dL, Normal 150-199 mg/dL, Borderline high 200-499 mg/dL, High >499 mg/dL, Very high Performed By: #### 2 4331-1 ####[facility] LABCLIA [id number] [address], [facility] [place] [facility] [id number] [place] [address] [place]#### 3016-3 ####[facility] LABCLIA [id number] [place] [address] [place] [facility] W [facility] BILon 2024 [facility] W [facility] KAVON * * *Final Report* * * DATE OF EXAM: Feb 19 2025 10:51AM [id number] - [facility] DIADarrion Hicks EMMA KAVON / PROCEDURE REASON: multiple diagnoses * * * * Physician Interpretation * * * * RESULT: [facility] [address] [place] [address] #[id number] - [facility] DIAG W EMMA KAVON #[id number] - [facility] US BREAST LTD RT #[id number] - [facility] US BREAST LTD LT HISTORY: 79 year-old patient presents for diagnostic evaluation of a palpable abnormality in both breasts. The patient has the following personal history of breast cancer: bilateral breast cancer more than 10 years ago and bilateral breast cancer more than 10 years ago. The patient has a family history of breast cancer. COMPARISON STUDIES: The present examination has been compared to prior imaging studies dated 07/29/2020 (mammogram), 08/18/2020 (ultrasound), 07/20/2022 (mammogram) and 08/31/2022 (mammogram). MAMMOGRAM TECHNIQUE: The study was acquired using full field digital technology and interpreted from soft copy. Digital Breast Tomosynthesis (DBT) images were obtained and used to assist in the interpretation of this examination. MAMMOGRAM FINDINGS: There are scattered areas of fibroglandular density. Both breast have benign postoperative changes. There are a few stable grouped punctate calcifications in the anterior depth upper outer quadrant of the left breast. No suspicious masses, calcifications or other abnormalities are seen in either breast. ULTRASOUND TECHNIQUE: Targeted ultrasound of the indicated area was performed. Broussard scale images were saved. ULTRASOUND FINDINGS: There are no suspicious findings in the imaged areas. IMPRESSION: There is no mammographic or sonographic evidence of malignancy. There is no mammographic or sonographic abnormality to correspond with the areas of palpable concern in each breast. Further management should be based on clinical assessment. Return to annual screening mammogram is recommended. Annual mammogram will be due in 1 year. BI-RADS Category 2: Benign RISK: Due to the reported patient's history, the patient's estimated lifetime risk of developing breast cancer cannot be assessed at this time. We encourage all patients to talk with their providers about their risk assessment, further recommendations for managing breast health, and appropriate supplemental screening options if the patient has dense breast tissue. Interpreting Radiologist: Rey Marquez M.D. Electronically signed on: 02/19/2025 Intern Retail: LETTY Transcribe Date/Time: Feb 19 2025 10:04A Dictated by: REY MARQUEZ MD This examination was interpreted and the report reviewed and electronically signed by: REY MARQUEZ MD on Feb 19 2025 11:53AM EST [id number] Normal [facility] US BREAST LTD LTon 02-19 [facility] US BREAST LTD LT * * *Final Report* * * DATE OF EXAM: Feb 19 2025 11:28AM [id number] - [facility] US BREAST LTD LT / PROCEDURE REASON: multiple diagnoses * * * * Physician Interpretation * * * * [place] [address] #[id number] - [facility] DIAG W EMMA KAVON #[id number] - [facility] US BREAST LTD RT #[id number] - [facility] US BREAST LTD LT HISTORY: 79 year-old patient presents for diagnostic evaluation of a palpable abnormality in both breasts. The patient has the following personal history of breast cancer: bilateral breast cancer more than 10 years ago and bilateral breast cancer more than 10 years ago. The patient has a family history of breast cancer. COMPARISON STUDIES: The present examination has been compared to prior imaging studies dated 07/29/2020 (mammogram), 08/18/2020 (ultrasound), 07/20/2022 (mammogram) and 08/31/2022 (mammogram). MAMMOGRAM TECHNIQUE: The study was acquired using full field digital technology and interpreted from soft copy. Digital Breast Tomosynthesis (DBT) images were obtained and used to assist in the interpretation of this examination. MAMMOGRAM FINDINGS: There are scattered areas of fibroglandular density. Both breast have benign postoperative changes. There are a few stable grouped punctate calcifications in the anterior depth upper outer quadrant of the left breast. No suspicious masses, calcifications or other abnormalities are seen in either breast. ULTRASOUND TECHNIQUE: Targeted ultrasound of the indicated area was performed. Broussard scale images were saved. ULTRASOUND FINDINGS: There are no suspicious findings in the imaged areas. IMPRESSION: There is no mammographic or sonographic evidence of malignancy. There is no mammographic or sonographic abnormality to correspond with the areas of palpable concern in each breast. Further management should be based on clinical assessment. Return to annual screening mammogram is recommended. Annual mammogram will be due in 1 year. BI-RADS Category 2: Benign RISK: Due to the reported patient's history, the patient's estimated lifetime risk of developing breast cancer cannot be assessed at this time. We encourage all patients to talk with their providers about their risk assessment, further recommendations for managing breast health, and appropriate supplemental screening options if the patient has dense breast tissue. Interpreting Radiologist: Rey Marquez M.D. Electronically signed on: 02/19/2025 Intern Retail: LETTY Transcribe Date/Time: Feb 19 2025 11:22A Dictated by : REY MARQUEZ MD This examination was interpreted and the report reviewed and electronically signed by: REY MARQUEZ MD on Feb 19 2025 11:53AM EST [id number] Normal [facility] US BREAST LTD RTon 02-19 [facility] US BREAST LTD RT * * *Final Report* * * DATE OF EXAM: Feb 19 2025 11:21AM WRU 0594 - [facility] US BREAST LTD RT / PROCEDURE REASON: multiple diagnoses * * * * Physician Interpretation * * * * [place] [address] #[id number] - [facility] DIAG W EMMA KAVON #[id number] - [facility] US BREAST LTD RT #[id number] - [facility] US BREAST LTD LT HISTORY: 79 year-old patient presents for diagnostic evaluation of a palpable abnormality in both breasts. The patient has the following personal history of breast cancer: bilateral breast cancer more than 10 years ago and bilateral breast cancer more than 10 years ago. The patient has a family history of breast cancer. COMPARISON STUDIES: The present examination has been compared to prior imaging studies dated 07/29/2020 (mammogram), 08/18/2020 (ultrasound), 07/20/2022 (mammogram) and 08/31/2022 (mammogram). MAMMOGRAM TECHNIQUE: The study was acquired using full field digital technology and interpreted from soft copy. Digital Breast Tomosynthesis (DBT) images were obtained and used to assist in the interpretation of this examination. MAMMOGRAM FINDINGS: There are scattered areas of fibroglandular density. Both breast have benign postoperative changes. There are a few stable grouped punctate calcifications in the anterior depth upper outer quadrant of the left breast. No suspicious masses, calcifications or other abnormalities are seen in either breast. ULTRASOUND TECHNIQUE: Targeted ultrasound of the indicated area was performed. Broussard scale images were saved. ULTRASOUND FINDINGS: There are no suspicious findings in the imaged areas. IMPRESSION: There is no mammographic or sonographic evidence of malignancy. There is no mammographic or sonographic abnormality to correspond with the areas of palpable concern in each breast. Further management should be based on clinical assessment. Return to annual screening mammogram is recommended. Annual mammogram will be due in 1 year. BI-RADS Category 2: Benign RISK: Due to the reported patient's history, the patient's estimated lifetime risk of developing breast cancer cannot be assessed at this time. We encourage all patients to talk with their providers about their risk assessment, further recommendations for managing breast health, and appropriate supplemental screening options if the patient has dense breast tissue. Interpreting Radiologist: Rey Marquez M.D. Electronically signed on: 02/19/2025 Intern Retail: LETTY Transcribe Date/Time: Feb 19 2025 11:11A Dictated by : REY MARQUEZ MD This examination was interpreted and the report reviewed and electronically signed by: REY MARQUEZ MD on Feb 19 2025 11:53AM EST [id number] Normal [facility] TSH SerPl-aCncon 02-19-2025 TSH Qn 2.480 m[IU]/L Normal 0.270-4.200 [facility] Comment on above: Order Comment: Speci men Type: BLOOD SPECIMENOrdering Facility: [facility] Address: [address] [place] [address] Performed By: #### 2 4331-1 ####[facility] LABCLIA [id number] [address] [address] [place] [facility] [id number] [address] [place]#### 3016-3 ####[facility] LABSOCRATES [id number] GUSTAVO PRATT [address] [place] Km 02-13-2025 CNPN Telephone ([facility]) GABBY GUILLEN ([id number]) 1945 F CHT Date Time Provider Department 02/13/25 REINALDO CHOI [facility] During your visit today, we recorded the following information about you: George Decker lita 02/13/2025 10:55 AM Signed Prescription for Repatha Pushtronex is no longer available and [facility] cannot acquire more in stock to fulfill this order. Can [facility] receive a new E-Script for Repatha Sureclick, if appropriate? Please discuss any therapy changes with patient as necessary. Thank you! George Decker [facility] [phone] Allergies As of Date: 02/13/2025 Noted Allergy Reaction AMLODIPINE 09/17/2020 7 - Swelling BIAXIN (CLARITHROMYCIN) 08/27/2007 2 - Rash METFORMIN 11/19/2009 6 - Diarrhea Comments: ER formulation caused symptoms at 1 tablet per day SPIRONOLACTONE 10/11/2022 14 - Other: See Comments Comments: lightheaded and dizzy GYTLAZQ-GZS-YWD REDUCTASE INHIBIT*08/08/2012 5 - Intolerance Comments: myalgia and diarrhea Date Reviewed: 02/12/2025 Reviewed by: Caitlyn Bruce MA - Fully Assessed Reason for Visit: Medication Problem [65] Cmt: Repatha Pushtronex Prescriptions as of 03/10/2025 - aspirin 81 mg cap Take 324 mg by mouth one time only. For heart cath - carvedilol (COREG) 3.125 mg tablet Take 2 tablets by mouth two times a day with meals. - hydroCHLOROthiazide 25 mg tablet Take 1 tablet by mouth once daily. - REPATHA PUSHTRONEX 420 mg/3.5 mL wearable injector Use 3.5 mL by under the skin once every month. - valACYclovir (VALTREX) 500 mg tablet Take 1 tablet by mouth once daily. - betamethasone dipropionate, augmented (DIPROLENE) 0.05 % cream Apply to affected area. APPLY TO AFFECTED AREAS OF RASH ON THE BODY 1-2 TIMES DAILY WHEN FLARED - semaglutide (OZEMPIC) 0.25 mg or 0.5 mg (2 mg/3 mL) pen Inject 0.25 mg subcutaneously one time a week. - hydrocortisone 2.5 % cream abdomenal areas as needed - losartan (COZAAR) 100 mg tablet Take 1 tablet by mouth once daily. - DULoxetine (CYMBALTA) 30 mg capsule Take 1 capsule by mouth once daily. - pantoprazole DR (PROTONIX) 20 mg tablet Take 20 mg by mouth once daily. - blood sugar diagnostic (BLOOD GLUCOSE TEST) test strip Test blood sugar(s) 1 times daily. Dx: Type 2 DM - Controlled E11.9 Insulin: No - Lancets lancets Test blood sugar(s) 1 times daily. Dx: Type 2 DM - Controlled E11.9 Insulin: No - Blood Sugar Diagnostic, Drum (ACCU-CHEK COMPACT TEST) Strp TEST BLOOD SUGAR ONCE DAILY. 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] 04/01/2005 impingement syndrome right shoulder [M25.819] 04/01/2005 07/04/2005 ROTATOR CUFF SYND NOS [M71.9, M67.919] 04/01/2005 07/04/2005 AFTERCARE NOS [Z51.89] 04/29/2005 07/04/2005 SURGERY FOLLOWUP NOS [Z09] 04/29/2005 07/04/2005 Hereditary and idiopathic peripheral neuropathy*11/17/2005 05/26/2020 SPRAIN OF FOOT NOS [S93.609A] 11/17/2005 SHOULDER REGION DIS NEC [M25.819] 01/17/2006 01/17/2006 impingement syndrome [M25.819] 01/17/2006 CHRONIC RHINITIS [J31.0] 07/12/2006 Unspecified sleep apnea [G47.30] 09/11/2006 IMPAIRED FASTING GLUCOSE [R73.09] 08/17/2007 FEMALE GENITAL SYMPTOMS NOS [N94.9] 08/27/2007 ABDOMINAL PAIN LLQ [R10.32] 08/27/2007 ABDOMINAL PAIN RLQ [R10.31] 08/27/2007 FEMALE STRESS INCONTINENCE [N39.3] 08/27/2007 URGE INCONTINENCE [N39.41] 08/27/2007 MASTODYNIA [N64.4] 08/27/2007 IRRITABLE COLON [K58.9] 08/27/2007 VIRAL WARTS NOS [B07.9] 08/29/2008 Generalized osteoarthrosis, unspecified site [M*08/29/2008 04/05/2022 PAIN IN LIMB [M79.609] 08/29/2008 ACQ DEFORMITY OF TOE NEC [M20.5X9] 09/12/2008 Uncontrolled type 2 diabetes mellitus with hype*04/01/2010 06/09/2020 Unspecified constipation [K59.00] 09/10/2010 Rectocele [N81.6] 09/10/2010 Folliculitis [L73.9] 09/15/2010 Acne vulgaris [L70.0] 09/15/2010 Other seborrheic dermatitis [L21.8] 09/15/2010 Other seborrheic keratosis [L82.1] 09/15/2010 Stucco keratoses [L82.1] 09/15/2010 Eczema intertrigo [L30.4] 09/15/2010 Xerosis cutis [L85.3] 09/15/2010 Actinic Damage//Sun-damaged skin [L57.8] 09/15/2010 Solar lentigines [L81.4] 09/15/2010 Telangiectasia [I78.1] 09/15/2010 DM (diabetes mellitus) (HCC) [E11.9] 09/28/2010 06/09/2020 Pruritus - disorder 02/23/2011 Cutaneous skin tags [L91.8] 02/23/2011 Plantar fascial fibromatosis [M72.2] 06/13/2011 (more content not included)... Normal [facility] CNOVon 02-12-2025 CNOV Office Visit (JULIO PUENTEB) GABBY GUILLEN ([id number]) 1945 F T Date Time Provider Department 02/12/25 2:20 PM REINALDO CHOI AGCARDPOB During your visit today, we recorded the following information about you: Pulse Blood pressure Weight 72/minute 136/78 67.1 kg Reinaldo Choi MD 02/12/2025 4:44 PM Signed Reinaldo Choi MD General Cardiology [address] [place] [address] [phone] Chief Complaint Patient presents with: Cardiology Follow Up - Generic: HLD HISTORY OF PRESENT ILLNESS: Ms. 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 The patient reports experiencing chest pain that radiates to her shoulders and neck. 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 She experiences these episodes approximately every other day, particularly when busy. She also reports significant fatigue. She notes that these symptoms have become more frequent compared to 2020, when coronary angiography revealed arterial blockages. She expresses concern that her condition may be worsening. She also reports episodes of elevated blood pressure. She was previously on Repatha 420 mg monthly but discontinued it due to insurance coverage issues. Her most recent lipid panel on 09/19/2024 showed a total cholesterol of 256 mg/dL and LDL of 176 mg/dL. She takes aspirin intermittently rather than daily. Current medications include Coreg 3.125 mg BID and losartan 100 mg daily. Cardiac Risk Factors age (male over 45, female over 55), hyperlipidemia, hypertension, family history of CAD PAST MEDICAL HISTORY Diagnosis Date Adjustment disorder with depressed mood 03/17/2005 Arthritis Coronary artery disease Dyspareunia 03/17/2005 Esophageal reflux Gastroesophageal reflux Esophageal reflux HLD (hyperlipidemia) HTN (hypertension) Impaired fasting glucose 03/17/2005 Mixed hyperlipidemia Myalgia and myositis, unspecified Other and unspecified hyperlipidemia 03/17/2005 PMH - PAST MEDICAL HISTORY OF TIA's PMH - PAST MEDICAL HISTORY OF skin cancer Rheumatoid arthritis(714.0) Statin intolerance Trace cataracts 2007 Uncontrolled type 2 diabetes mellitus with hyperglycemia (HCC) 04/01/2010 Unspecified asthma(493.90) 03/17/2005 Unspecified closed fracture of ankle Unspecified essential hypertension 03/17/2005 PAST SURGICAL HISTORY Procedure Laterality Date ABDOMINAL SURGERY HX ADENOIDECTOMY PRIMARY Adenoidectomy ADENOIDECTOMY SECONDARY AGE 12/> APPENDECTOMY age 30s incidental to [facility] APPENDECTOMY HX BIOPSY BREAST OPEN INCISIONAL Bx of breast, incisional x3 both BREAST SURGERY HX CHOLECYSTECTOMY Cholecystectomy CHOLECYSTECTOMY COLONOSCOPY FLX DX W/COLLJ SPEC WHEN PFRMD 08/2002 Colonoscopy COLONOSCOPY FLX DX W/COLLJ SPEC WHEN PFRMD 2010 Colonoscopy COLONOSCOPY SCREENING 07/07/2021 EGD W/O RUST SPEC VARICIES INJ 07/07/2021 ESOPHAGOGASTRODUODENOSCOPY TRANSORAL DIAGNOSTIC EGD ESOPHAGOGASTRODUODENOSCOPY TRANSORAL DIAGNOSTIC 08/2002 EGD ESOPHAGOGASTRODUODENOSCOPY TRANSORAL DIAGNOSTIC 04/14/2011 EGD EYE SURGERY HX INCISE FINGER TENDON SHEATH Right 09/04/2024 Right trigger thumb release KNEE LEFT OP SURGERY LUMPECTOMY/RADIOTHERAPY DIAG MAMM/A10 1980s bilat NEUROPLASTY AND/TRANSPOS MEDIAN NRV CARPAL TUNNE both PAST SURGICAL HISTORY OF benign leg tumor PAST SURGICAL HISTORY OF multiple brest lumpectomy x3 benign both PAST SURGICAL HISTORY OF facial/mouth surgery PAST SURGICAL HISTORY OF dental surgery PAST SURGICAL HISTORY OF bladder/colon with fistula tumor benign PAST SURGICAL HISTORY OF benign tumor from right lower leg PAST SURGICAL HISTORY OF 04/27/2005 right shoulder scope and debridement SKIN BIOPSY HX TONSILLECTOMY HX TONSILLECTOMY PRIMARY/SECONDARY Tonsillectomy TOTAL ABDOMINAL HYSTERECT W/WO RMVL TUBE OVARY Hysterectomy, SARAH + BSO in stages VAGINAL HYSTERECTOMY FAMILY HISTORY Problem Relation Age of Onset Hypertension Mother Breast Cancer Mother Diabetes Father Heart Father Hypertension Father Hypertension Sister Hypertension Brother 3 brothers all with hypertension diabetes all have this Thyroid Daughter Hypertension Son Diabetes Son Cancer Daughter thyroid Diabetes Sister x 2 both have diabetes Cancer Brother All 3 Brothers Hypertension Other Several Family Member SOCIAL HISTORY[1] ALLERGIES Allergen Reactions Amlodipine Swelling Biaxin [Clarithromy* Rash Metformin Diarrhea ER formulation caused symptoms at 1 tablet per day Spironolactone Other: See Comments lightheaded and dizzy Jsadida-Hir-Hds Red* Intolerance myalgia and diarrhea Medications: (more content not included)... Normal [facility] 02-11-2025 [facility] Telephone (INTMWS) MINDYYVETTE ([id number]) 1945 F [facility] Date Time Provider Department 02/11/25 RODRIGO SALAS INTWS During your visit today, we recorded the following information about you: Hazel Peck 02/11/2025 2:03 PM Signed Patient dropped off Patient assistance forms for Ozempic. Forms given to nurse. Please assist. Cherelle Casey MA 02/11/2025 5:13 PM Signed Forms placed on PCP desk for signature. BEL Sutton Brittany L, MA 02/12/2025 4:48 PM Signed Forms completed AND faxed to # provided. Cherelle Lawson MA Allergies As of Date: 02/11/2025 Noted Allergy Reaction AMLODIPINE 09/17/2020 7 - Swelling BIAXIN (CLARITHROMYCIN) 08/27/2007 2 - Rash METFORMIN 11/19/2009 6 - Diarrhea Comments: ER formulation caused symptoms at 1 tablet per day SPIRONOLACTONE 10/11/2022 14 - Other: See Comments Comments: lightheaded and dizzy [id number] REDUCTASE INHIBIT*08/08/2012 5 - Intolerance Comments: myalgia and diarrhea Date Reviewed: 01/29/2025 Reviewed by: Cherelle Lawson MA - Fully Assessed Reason for Visit: Forms [913] Prescriptions as of 02/12/2025 - REPATHA PUSHTRONEX 420 mg/3.5 mL wearable injector 3.5 mL by IM/SQ route once every month. - valACYclovir (VALTREX) 500 mg tablet Take 1 tablet by mouth once daily. - betamethasone dipropionate, augmented (DIPROLENE) 0.05 % cream Apply to affected area. APPLY TO AFFECTED AREAS OF RASH ON THE BODY 1-2 TIMES DAILY WHEN FLARED - semaglutide (OZEMPIC) 0.25 mg or 0.5 mg (2 mg/3 mL) pen Inject 0.25 mg subcutaneously one time a week. - carvedilol (COREG) 3.125 mg tablet Take 1 tablet by mouth two times a day with meals. - hydrocortisone 2.5 % cream abdomenal areas as needed - losartan (COZAAR) 100 mg tablet Take 1 tablet by mouth once daily. - DULoxetine (CYMBALTA) 30 mg capsule Take 1 capsule by mouth once daily. - pantoprazole DR (PROTONIX) 20 mg tablet Take 20 mg by mouth once daily. - blood sugar diagnostic (BLOOD GLUCOSE TEST) test strip Test blood sugar(s) 1 times daily. Dx: Type 2 DM - Controlled E11.9 Insulin: No - Lancets lancets Test blood sugar(s) 1 times daily. Dx: Type 2 DM - Controlled E11.9 Insulin: No - Blood Sugar Diagnostic, Drum (ACCU-CHEK COMPACT TEST) Strp TEST BLOOD SUGAR ONCE DAILY. 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] 04/01/2005 impingement syndrome right shoulder [M25.819] 04/01/2005 07/04/2005 ROTATOR CUFF SYND NOS [M71.9, M67.919] 04/01/2005 07/04/2005 AFTERCARE NOS [Z51.89] 04/29/2005 07/04/2005 SURGERY FOLLOWUP NOS [Z09] 04/29/2005 07/04/2005 Hereditary and idiopathic peripheral neuropathy*11/17/2005 05/26/2020 SPRAIN OF FOOT NOS [S93.609A] 11/17/2005 SHOULDER REGION DIS NEC [M25.819] 01/17/2006 01/17/2006 impingement syndrome [M25.819] 01/17/2006 CHRONIC RHINITIS [J31.0] 07/12/2006 Unspecified sleep apnea [G47.30] 09/11/2006 IMPAIRED FASTING GLUCOSE [R73.09] 08/17/2007 FEMALE GENITAL SYMPTOMS NOS [N94.9] 08/27/2007 ABDOMINAL PAIN LLQ [R10.32] 08/27/2007 ABDOMINAL PAIN RLQ [R10.31] 08/27/2007 FEMALE STRESS INCONTINENCE [N39.3] 08/27/2007 URGE INCONTINENCE [N39.41] 08/27/2007 MASTODYNIA [N64.4] 08/27/2007 IRRITABLE COLON [K58.9] 08/27/2007 VIRAL WARTS NOS [B07.9] 08/29/2008 Generalized osteoarthrosis, unspecified site [M*08/29/2008 04/05/2022 PAIN IN LIMB [M79.609] 08/29/2008 ACQ DEFORMITY OF TOE NEC [M20.5X9] 09/12/2008 Uncontrolled type 2 diabetes mellitus with hype*04/01/2010 06/09/2020 Unspecified constipation [K59.00] 09/10/2010 Rectocele [N81.6] 09/10/2010 Folliculitis [L73.9] 09/15/2010 Acne vulgaris [L70.0] 09/15/2010 Other seborrheic dermatitis [L21.8] 09/15/2010 Other seborrheic keratosis [L82.1] 09/15/2010 Stucco keratoses [L82.1] 09/15/2010 Eczema intertrigo [L30.4] 09/15/2010 Xerosis cutis [L85.3] 09/15/2010 Actinic Damage//Sun-damaged skin [L57.8] 09/15/2010 Solar lentigines [L81.4] 09/15/2010 Telangiectasia [I78.1] 09/15/2010 DM (diabetes mellitus) (HCC) [E11.9] 09/28/2010 06/09/2020 Pruritus - disorder 02/23/2011 Cutaneous skin tags [L91.8] 02/23/2011 Plantar fascial fibromatosis [M72.2] 06/13/2011 Capsulitis [M77.9] 02/09/2012 Screening for cardiovascular condition [Z13.6] 07/13/2020 Palpitations [R00.2] 07/13/2020 Chest pain due to myocardial ischemia [I25.9] 07/13/2020 SOB (shortness of breath) [R06.02] (more content not included)... Normal [facility]INTM[facility] GABBY GUILLEN ([id number]) 1945 F T Date Time Provider Department 02/04/25 RODRIGO SALAS INTMWS During your visit today, we recorded the following information about you: Hazel Leahy RN 02/04/2025 12:01 PM Signed Patient calls and states that [employer] is faxing over paperwork for patient's insulins. Please watch out for paperwork. SANTIAGO Delgado Brittany L, MA 02/11/2025 2:04 PM Signed SEE TE 02/11/25. Cherelle Lawson MA Allergies As of Date: 02/04/2025 Noted Allergy Reaction AMLODIPINE 09/17/2020 7 - Swelling BIAXIN (CLARITHROMYCIN) 08/27/2007 2 - Rash METFORMIN 11/19/2009 6 - Diarrhea Comments: ER formulation caused symptoms at 1 tablet per day SPIRONOLACTONE 10/11/2022 14 - Other: See Comments Comments: lightheaded and dizzy RAEXEFH-PEN-ROI REDUCTASE INHIBIT*08/08/2012 5 - Intolerance Comments: myalgia and diarrhea Date Reviewed: 01/29/2025 Reviewed by: Cherelle Lawson MA - Fully Assessed Reason for Visit: Forms [913] Prescriptions as of 02/11/2025 - valACYclovir (VALTREX) 500 mg tablet Take 1 tablet by mouth once daily. - betamethasone dipropionate, augmented (DIPROLENE) 0.05 % cream Apply to affected area. APPLY TO AFFECTED AREAS OF RASH ON THE BODY 1-2 TIMES DAILY WHEN FLARED - semaglutide (OZEMPIC) 0.25 mg or 0.5 mg (2 mg/3 mL) pen Inject 0.25 mg subcutaneously one time a week. - carvedilol (COREG) 3.125 mg tablet Take 1 tablet by mouth two times a day with meals. - REPATHA PUSHTRONEX 420 mg/3.5 mL wearable injector 3.5 mL by IM/SQ route once every month. - hydrocortisone 2.5 % cream abdomenal areas as needed - losartan (COZAAR) 100 mg tablet Take 1 tablet by mouth once daily. - DULoxetine (CYMBALTA) 30 mg capsule Take 1 capsule by mouth once daily. - pantoprazole DR (PROTONIX) 20 mg tablet Take 20 mg by mouth once daily. - blood sugar diagnostic (BLOOD GLUCOSE TEST) test strip Test blood sugar(s) 1 times daily. Dx: Type 2 DM - Controlled E11.9 Insulin: No - Lancets lancets Test blood sugar(s) 1 times daily. Dx: Type 2 DM - Controlled E11.9 Insulin: No - Blood Sugar Diagnostic, Drum (ACCU-CHEK COMPACT TEST) Strp TEST BLOOD SUGAR ONCE DAILY. 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] 04/01/2005 impingement syndrome right shoulder [M25.819] 04/01/2005 07/04/2005 ROTATOR CUFF SYND NOS [M71.9, M67.919] 04/01/2005 07/04/2005 AFTERCARE NOS [Z51.89] 04/29/2005 07/04/2005 SURGERY FOLLOWUP NOS [Z09] 04/29/2005 07/04/2005 Hereditary and idiopathic peripheral neuropathy*11/17/2005 05/26/2020 SPRAIN OF FOOT NOS [S93.609A] 11/17/2005 SHOULDER REGION DIS NEC [M25.819] 01/17/2006 01/17/2006 impingement syndrome [M25.819] 01/17/2006 CHRONIC RHINITIS [J31.0] 07/12/2006 Unspecified sleep apnea [G47.30] 09/11/2006 IMPAIRED FASTING GLUCOSE [R73.09] 08/17/2007 FEMALE GENITAL SYMPTOMS NOS [N94.9] 08/27/2007 ABDOMINAL PAIN LLQ [R10.32] 08/27/2007 ABDOMINAL PAIN RLQ [R10.31] 08/27/2007 FEMALE STRESS INCONTINENCE [N39.3] 08/27/2007 URGE INCONTINENCE [N39.41] 08/27/2007 MASTODYNIA [N64.4] 08/27/2007 IRRITABLE COLON [K58.9] 08/27/2007 VIRAL WARTS NOS [B07.9] 08/29/2008 Generalized osteoarthrosis, unspecified site [M*08/29/2008 04/05/2022 PAIN IN LIMB [M79.609] 08/29/2008 ACQ DEFORMITY OF TOE NEC [M20.5X9] 09/12/2008 Uncontrolled type 2 diabetes mellitus with hype*04/01/2010 06/09/2020 Unspecified constipation [K59.00] 09/10/2010 Rectocele [N81.6] 09/10/2010 Folliculitis [L73.9] 09/15/2010 Acne vulgaris [L70.0] 09/15/2010 Other seborrheic dermatitis [L21.8] 09/15/2010 Other seborrheic keratosis [L82.1] 09/15/2010 Stucco keratoses [L82.1] 09/15/2010 Eczema intertrigo [L30.4] 09/15/2010 Xerosis cutis [L85.3] 09/15/2010 Actinic Damage//Sun-damaged skin [L57.8] 09/15/2010 Solar lentigines [L81.4] 09/15/2010 Telangiectasia [I78.1] 09/15/2010 DM (diabetes mellitus) (HCC) [E11.9] 09/28/2010 06/09/2020 Pruritus - disorder 02/23/2011 Cutaneous skin tags [L91.8] 02/23/2011 Plantar fascial fibromatosis [M72.2] 06/13/2011 Capsulitis [M77.9] 02/09/2012 Screening for cardiovascular condition [Z13.6] 07/13/2020 Palpitations [R00.2] 07/13/2020 Chest pain due to myocardial ischemia [I25.9] 07/13/2020 SOB (shortness of breath) [R06.02] 09/14/2020 Obesity, Class II, BMI 35-39.9 [E66.812] 09/14/2020 04/05/2022 Coronary artery disease involving [place] cor (more content not included)... Normal [facility] CNOVon 01-29-2025 CNOV Office Visit (INTMWS ) GABBY [id number]) 1945 F CHT Date Time Provider Department 01/29/25 10:00 AM RODRIGO SALAS During your visit today, we recorded the following information about you: Pulse Respiration Blood pressure Weight 64/minute 16/minute 143/76 64 kg Rodrigo Salas MD 01/29/2025 11:29 AM Signed Gabby Guillen is a 79 year old female here for a Medicare wellness visit. Medicare Health Risk Assessment General Health Good Exercise: Minutes/Day 40 min Exercise: Days/Week 3 days Alcohol: Daily Use Monthly or less Alcohol: Drinks/Day 1 or 2 Alcohol: 6 or more drinks Never Feel off balance Yes Concerns: Teeth/Dentures Yes Concerns: Sexual function No Troubled by feelings Stressed Frequency: Eating healthy diet Nearly every day ADLs requiring help None of the above Safety precautions in home/vehicle Yes Smoke, vape, chews tobacco No Difficulty hearing Yes, I wear a hearing aid Difficulty seeing Yes Current Providers Specialists: I have reviewed specialist-related care of the patient in the medical record. Medical/Family history review Reviewed and updated problem list, medical/surgical/family/soc ial history, medications, and allergies. Opioid use review Opioid Medications (last 90 days) No data to display Anxiety/Depression screening LEE-7 Score: 5 (Mild Anxiety) Recommendation: no further intervention at this time Cognitive screening Mini Cog Score: 5 Cognitive screening reviewed and No further action needed (score 3-5). Functional Observation Was the patient's Timed Up AND Go test unsteady or >= 12 seconds? Yes Advance Care Planning Surrogate decision maker and/or advance care plan documented Measurements BP 142/79 Pulse 65 Resp 16 Wt 64 kg (141 lb 3.2 oz) BMI 27.58 kg/m? Vision Screening: Follows with optometry/ophthalmology Assessment/Plan Medicare annual wellness visit, subsequent (Z00.00) - Counseled on healthy diet and regular exercise - Fall avoidance information provided - Personalized prevention plan provided Reason for Visit Follow up HPI Gabby Guillen is a 79-year-old female with a history of breast cancer, NAFLD, and hypercholesterolemia, presenting for a follow-up visit. Gabby reports persistent fatigue, particularly in the mornings, which she attributes to not being a morning person. She notes increased energy later in the day. She denies engaging in formal exercise but describes herself as physically active, engaging in activities such as gardening and walking. She estimates she spends about 30 minutes gardening several days a week, interspersed with other activities like quilting and sewing. She expresses a preference for exercising with others and mentions that she would attend [employer] if it were closer. Gabby reports issues with her dentures, describing them as really loose and causing discomfort. She has a scheduled appointment with Dr. Ramirez to address these issues. She also mentions a recent quote of $12,000 for dental work, which she declined. Gabby reports concerns about balance, stating, I've been losing my balance. That's what scares me. She expresses reluctance to attend physical therapy due to the cost. She reports palpable lumps in her chest and breast areas, which she describes as lymph nodes. She has a history of a lumpectomy for precancerous lesions but did not undergo radiation or chemotherapy. She reports a family history of breast cancer, with her mother having from the disease. She mentions that her last mammogram was in 2022. 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 Bose, a trimmer tailer, to address this issue. She also mentions a history of genital herpes, which she discovered while reviewing her medical records but is not sure that is accurate She is currently taking Ozempic 0.25 mg weekly, with her last dose taken on Monday. She reports stable weight but expresses a desire to lose weight, aiming for 125 lbs. She is not currently taking thyroid medication. She has not yet started Repatha due to insurance issues and mentions a previous intolerance to statins. She also reports being prescribed a medication for NAFLD, which she did not take due to the cost being over $1,000 per month. SOCIAL HISTORY[1] Past medical history, appointments, medications, allergies reviewed. Pertinent Lab/Diagnostic Studies are reviewed and discussed today Current Outpatient Medications: valACYclovir (VALTREX) 500 mg tablet betamethasone dipropionate, augmented (DIPROLENE) 0.05 % cream carvedilol (COREG) 3.125 mg tablet REPATHA PUSHTRONEX 420 mg/3.5 mL wearable injector hydrocortisone 2.5 % cream losartan (COZAAR) 100 mg tablet DULoxetine (CYMBALTA) [address] (PROTONIX) 20 mg tablet blood suga (more content not included)... Normal [facility] CNPNon 01-29-2025 CNPN Telephone (INTMWS) TEJINDERGABBY PUENTES ([id number]) 1945 F CHT Date Time Provider Department 01/29/25 RODRIGO SALAS INTMWS During your visit today, we recorded the following information about you: Mary Eduardo LPN 01/29/2025 2:11 PM Signed Electronic PA rec'd and completed for ozempic. Mary Eduardo LPN 01/29/2025 2:16 PM Signed Prior authorization approved Payer: [facility] [phone] Approval Details Authorized from May 15, 2024 to May 14, 2025 Electronic appeal: Not supported Prior auth initiated by: Mary Eduardo LPN View History Notes Time User Attachment Attachment received from payer. 01/29/2025 2:12 PM [facility]chs, Rx Priorauth In Document Medication Being Authorized semaglutide (OZEMPIC) 0.25 mg or 0.5 mg (2 mg/3 mL) pen Inject 0.25 mg subcutaneously one time a week. Dispense: 6 mL Refills: 2 Start: 01/29/2025 End: 01/29/2026 Class: Normal Diagnoses: Type 2 diabetes mellitus with diabetic peripheral angiopathy without gangrene, without long-term current use of insulin (HCC) [E11.51] This order has been released to its destination. To be filled at: e- [facility]/pharmacy #[id number] [place] [address] - [phone] - [phone] [facility] [phone] Pharmacy notified Allergies As of Date: 01/29/2025 Noted Allergy Reaction AMLODIPINE 09/17/2020 7 - Swelling BIAXIN (CLARITHROMYCIN) 08/27/2007 2 - Rash METFORMIN 11/19/2009 6 - Diarrhea Comments: ER formulation caused symptoms at 1 tablet per day SPIRONOLACTONE 10/11/2022 14 - Other: See Comments Comments: lightheaded and dizzy [id number] REDUCTASE INHIBIT*08/08/2012 5 - Intolerance Comments: myalgia and diarrhea Date Reviewed: 01/29/2025 Reviewed by: Cherelle Lawson MA - Fully Assessed Reason for Visit: Insurance Authorization [[id number]] Prescriptions as of 01/29/2025 - valACYclovir (VALTREX) 500 mg tablet Take 1 tablet by mouth once daily. - betamethasone dipropionate, augmented (DIPROLENE) 0.05 % cream Apply to affected area. APPLY TO AFFECTED AREAS OF RASH ON THE BODY 1-2 TIMES DAILY WHEN FLARED - semaglutide (OZEMPIC) 0.25 mg or 0.5 mg (2 mg/3 mL) pen Inject 0.25 mg subcutaneously one time a week. - carvedilol (COREG) 3.125 mg tablet Take 1 tablet by mouth two times a day with meals. - REPATHA PUSHTRONEX 420 mg/3.5 mL wearable injector 3.5 mL by IM/SQ route once every month. - hydrocortisone 2.5 % cream abdomenal areas as needed - losartan (COZAAR) 100 mg tablet Take 1 tablet by mouth once daily. - DULoxetine (CYMBALTA) 30 mg capsule Take 1 capsule by mouth once daily. - pantoprazole DR (PROTONIX) 20 mg tablet Take 20 mg by mouth once daily. - blood sugar diagnostic (BLOOD GLUCOSE TEST) test strip Test blood sugar(s) 1 times daily. Dx: Type 2 DM - Controlled E11.9 Insulin: No - Lancets lancets Test blood sugar(s) 1 times daily. Dx: Type 2 DM - Controlled E11.9 Insulin: No - Blood Sugar Diagnostic, Drum (ACCU-CHEK COMPACT TEST) Strp TEST BLOOD SUGAR ONCE DAILY. 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] 04/01/2005 impingement syndrome right shoulder [M25.819] 04/01/2005 07/04/2005 ROTATOR CUFF SYND NOS [M71.9, M67.919] 04/01/2005 07/04/2005 AFTERCARE NOS [Z51.89] 04/29/2005 07/04/2005 SURGERY FOLLOWUP NOS [Z09] 04/29/2005 07/04/2005 Hereditary and idiopathic peripheral neuropathy*11/17/2005 05/26/2020 SPRAIN OF FOOT NOS [S93.609A] 11/17/2005 SHOULDER REGION DIS NEC [M25.819] 01/17/2006 01/17/2006 impingement syndrome [M25.819] 01/17/2006 CHRONIC RHINITIS [J31.0] 07/12/2006 Unspecified sleep apnea [G47.30] 09/11/2006 IMPAIRED FASTING GLUCOSE [R73.09] 08/17/2007 FEMALE GENITAL SYMPTOMS NOS [N94.9] 08/27/2007 ABDOMINAL PAIN LLQ [R10.32] 08/27/2007 ABDOMINAL PAIN RLQ [R10.31] 08/27/2007 FEMALE STRESS INCONTINENCE [N39.3] 08/27/2007 URGE INCONTINENCE [N39.41] 08/27/2007 MASTODYNIA [N64.4] 08/27/2007 IRRITABLE COLON [K58.9] 08/27/2007 VIRAL WARTS NOS [B07.9] 08/29/2008 Generalized osteoarthrosis, unspecified site [M*08/29/2008 04/05/2022 PAIN IN LIMB [M79.609] 08/29/2008 ACQ DEFORMITY OF TOE NEC [M20.5X9] 09/12/2008 Uncontrolled type 2 diabetes mellitus with hype*04/01/2010 06/09/2020 Unspecified constipation [K59.00] 09/10/2010 Rectocele [N81.6] 09/10/2010 Folliculitis [L73.9] 09/15/2010 Acne vulgaris [L70.0] 09/15/2010 Other seborrheic dermatitis [L21.8] (more content not included)... Normal [facility] Absolute lymphocyte countOrd ered By: Alecia Padilla on 12-31-2024 Lymphocytes Auto (Unsp spec) [#/Vol] 1.67 10*3/uL 0.83-4.51 [facility] Absolute neutrophil countOrd ered By: Alecia Padilla on 12-31-2024 Neutrophils (Bld) [#/Vol] 3.4 10*3/uL 2.0-7.7 [facility] Anion gap in Serum or Plasma Ordered By: Alecia Padilla on 12-31-2024 Anion gap [Moles/Vol] 10 mmol/L 5-15 [facility] Automated lymphocyte count a s percentage of total leukocytesOrdered By: Alecia Padilla on 12-31-2024 Lymphocytes/100 WBC Auto (Unsp spec) 29.4 % 19- [facility] BUN/creatinine ratioOrdered By: Aleciacassie Padilla on 12-31-2024 Urea nitrogen/Creatinine [Mass ratio] 21.7 mg/mg High 10-20 [facility] Basophil percentageOrdered B y: Alecia Padilla on 12-31-2024 Basophils/100 WBC (Bld) 0.5 % 0-1 [facility] Bilirubin, totalOrdered By: Alecia Padilla on 12-31-2024 Bilirubin [Mass/Vol] 0.81 mg/dL 0.00-1.30 [facility] CBC W/Diff, Automatedon 12-13 Absolute Lymph 1.67 X10 3/uL Normal 0.83-4.51 [facility] Comment on above: Performed By: #### L 300.3900, L500.4050, L100.0100 #### [facility] [address] [place], [address] Absolute Neut 3.4 X10 3/uL Normal 2.0-7.7 [facility] Comment on above: Performed By: #### L 300.3900, L500.4050, L100.0100 #### [facility] [address] [place], [address] Basophils/100 WBC (Bld) 0.5 % Normal 0-1 [facility] Comment on above: Performed By: #### L 300.3900, L500.4050, L100.0100 #### [facility] [address] [place], [address] Eosinophils/100 WBC (Bld) 2.8 % Normal 0-5 [facility] Comment on above: Performed By: #### L 300.3900, L500.4050, L100.0100 #### [facility] [address] [place], [address] Erythrocyte distribution width (RBC) [Ratio] 12.5 % Normal 11.6-14.6 [facility] Comment on above: Performed By: #### L 300.3900, L500.4050, L100.0100 #### [facility] [address] [place], [address] Hematocrit (Bld) [Volume fraction] 38.7 % Normal 37-47 [facility] Comment on above: Performed By: #### L 300.3900, L500.4050, L100.0100 #### [facility] [address] [place], [address] Hemoglobin (Bld) [Mass/Vol] 13.0 g/dL Normal 12.0-15.0 [facility] Comment on above: Performed By: #### L 300.3900, L500.4050, L100.0100 #### [facility] [address] [place], [address] IG% 0.400 Normal 0.0-0.9 [facility] Comment on above: Result Comment: IG% - Immature Granulocytes (promyelocytes, myelocytes and metamyelocytes) > 1% indicates that a LEFT SHIFT is Present. Performed By: #### L 300.3900, L500.4050, L100.0100 #### [facility] [address] [place], [address] Lymphocytes/100 WBC (Bld) 29.4 % Normal 19-41 [facility] Comment on above: Performed By: #### L 300.3900, L500.4050, L100.0100 #### [facility] [address] [place], [address] MCH (RBC) [Entitic mass] 30.5 pg Normal 27.0-32.0 [facility] Comment on above: Performed By: #### L 300.3900, L500.4050, L100.0100 #### [facility] [address] [place], [address] MCHC (RBC) [Mass/Vol] 33.6 g/dL Normal 32-36 [facility] Comment on above: Performed By: #### L 300.3900, L500.4050, L100.0100 #### [facility] [address] [place], [address] MCV (RBC) [Entitic vol] 90.8 fL Normal 81-99 [facility] Comment on above: Performed By: #### L 300.3900, L500.4050, L100.0100 #### [facility] [address] [place], [address] Monocytes/100 WBC (Bld) 7.4 % Normal 0-10 [facility] Comment on above: Performed By: #### L 300.3900, L500.4050, L100.0100 #### [facility] [address] [place], [address] Neutrophils/100 WBC (Bld) 59.5 % Normal 47-70 [facility] Comment on above: Performed By: #### L 300.3900, L500.4050, L100.0100 #### [facility] [address] [place], [address] Nucleated RBC (Bld) [#/Vol] 0 10*3/uL Normal 0-5 [facility] Comment on above: Performed By: #### L 300.3900, L500.4050, L100.0100 #### [facility] [address] [place], [address] Platelet mean volume (Bld) [Entitic vol] 9.9 fL Normal 6.2-12.0 [facility] Comment on above: Performed By: #### L 300.3900, L500.4050, L100.0100 #### [facility] [address] [place], [address] Platelets (Bld) [#/Vol] 280 10*3/uL Normal 150-450 [facility] Comment on above: Performed By: #### L 300.3900, L500.4050, L100.0100 #### [facility] [address] [place], [address] RBC (Bld) [#/Vol] 4.26 10*6/uL Normal 4.2-5.4 [facility] Comment on above: Performed By: #### L 300.3900, L500.4050, L100.0100 #### [facility] [address] [place], [address] RDW SD 40.8 fl Normal 35.1-43.9 [facility] Comment on above: Performed By: #### L 300.3900, L500.4050, L100.0100 #### [facility] [address] [place], [address] WBC (Bld) [#/Vol] 5.7 10*3/uL Normal 4.4-11.0 [facility] Comment on above: Performed By: #### L 300.3900, L500.4050, L100.0100 #### [facility] [address] [place], [address] Carbon dioxide, total [Moles /volume] in Central venous bloodOrdered By: Alecia Padilla on 12-31-2024 CO2 [Moles/Vol] 27.2 mmol/L 21.0-32.0 [facility] Chloride assayOrdered By: Talia Padilla on 12-31-2024 Chloride [Moles/Vol] 107 mmol/L 98-108 [facility] Comprehensive Metabolic Prof ilon 12-31-2024 Albumin [Mass/Vol] 4.0 g/dL Normal 3.4-4.8 [facility] Comment on above: Performed By: #### L 300.3900, L500.4050, L100.0100 #### [facility] [address] [place], [address] Albumin/Globulin [Mass ratio] 1.5 {ratio} Normal 0.9-2.4 [facility] Comment on above: Performed By: #### L 300.3900, L500.4050, L100.0100 #### [facility] [address] [place], [address] ALK PHOS 86 U/L Normal 35-104 [facility] Comment on above: Performed By: #### L 300.3900, L500.4050, L100.0100 #### [facility] [address] [place], [address] ALT [Catalytic activity/Vol] 12 U/L Normal <=34 [facility] Comment on above: Performed By: #### L 300.3900, L500.4050, L100.0100 #### [facility] [address] [place], [address] AST [Catalytic activity/Vol] 19 U/L Normal <=31 [facility] Comment on above: Performed By: #### L 300.3900, L500.4050, L100.0100 #### [facility] [address] [place], [address] Bilirubin [Mass/Vol] 0.81 mg/dL Normal 0.00-1.30 [facility] Comment on above: Performed By: #### L 300.3900, L500.4050, L100.0100 #### [facility] [address] [place], [address] BUN/CRE 21.7 RATIO High 10-20 [facility] Comment on above: Performed By: #### L 300.3900, L500.4050, L100.0100 #### [facility] [address] [place], [address] Calcium [Mass/Vol] 9.9 mg/dL Normal 7.6-11.0 [facility] Comment on above: Performed By: #### L 300.3900, L500.4050, L100.0100 #### [facility] [address] [place], [address] Chloride [Moles/Vol] 107 mmol/L Normal 98-108 [facility] Comment on above: Performed By: #### L 300.3900, L500.4050, L100.0100 #### [facility] [address] [place], [address] CO2 [Moles/Vol] 27.2 mmol/L Normal 21.0-32.0 [facility] Comment on above: Performed By: #### L 300.3900, L500.4050, L100.0100 #### [facility] [address] [place], [address] Creatinine [Mass/Vol] 0.82 mg/dL Normal 0.70-1.20 [facility] Comment on above: Performed By: #### L 300.3900, L500.4050, L100.0100 #### [facility] [address] [place], [address] GAP 10 Normal 5-15 [facility] Comment on above: Performed By: #### L 300.3900, L500.4050, L100.0100 #### [facility] [address] [place], [address] GFR/1.73 sq M.predicted among non-blacks MDRD (S/P/Bld) [Vol rate/Area] 73 mL/min/{1.73_m2} Normal >60 [facility] Comment on above: Result Comment: mL/m in/1.73m2 CKD-EPI Creatinine Equation (2020) Performed By: #### L 300.3900, L500.4050, L100.0100 #### [facility] [address] [place], [address] Globulin (S) [Mass/Vol] 2.6 g/dL Normal 2.2-4.2 [facility] Comment on above: Performed By: #### L 300.3900, L500.4050, L100.0100 #### [facility] [address] [place], [address] Glucose [Mass/Vol] 86 mg/dL Normal 70-99 [facility] Comment on above: Performed By: #### L 300.3900, L500.4050, L100.0100 #### [facility] [address] [place], [address] Potassium [Moles/Vol] 4.4 mmol/L Normal 3.3-5.1 [facility] Comment on above: Performed By: #### L 300.3900, L500.4050, L100.0100 #### [facility] [address] [place], [address] Sodium [Moles/Vol] 144 mmol/L Normal 133-145 [facility] Comment on above: Performed By: #### L 300.3900, L500.4050, L100.0100 #### [facility] [address] [place], [address] T PROT 6.6 g/dL Normal 5.9-8.4 [facility] Comment on above: Performed By: #### L 300.3900, L500.4050, L100.0100 #### [facility] [address] [place], [address] Urea nitrogen [Mass/Vol] 18 mg/dL Normal -19 [facility] Comment on above: Performed By: #### L 300.3900, L500.4050, L100.0100 #### [facility] [address] [place], [address] Eosinophil percentageOrdered By: Alecia Padilla on 12-31-2024 Eosinophils/100 WBC (Bld) 2.8 % 0-5 [facility] Erythrocyte distribution wid th ratioOrdered By: Alecia Padilla on 12-31-2024 Erythrocyte distribution width (RBC) [Ratio] 12.5 % 11.6-14.6 [facility] Erythrocyte distribution wid th standard deviationOrdered By: Alecia Padilla on 12-31-2024 Erythrocyte distribution width (RBC) [Ratio] 40.8 fl 35.1-43.9 [facility] Gastroenterology Visit Repor ton 12-31-2024 Gastroenterology Visit Report [facility] [address] [place] [address] OFFICE VISIT Date of Service: 12/31/24 MR#: [id number] Acct: [id number] Name: GABBY GUILLEN Rep #: [id number] : 1945 Provider: ODILON Ross Age/Sex: 79/F Location: [facility] [place] Status: Signed Intake Vital Signs 05/30/23 08:33 Height 5 ft Intake Visit Reasons: 6 M FU Chief Complaint: Fatty liver Allergies clarithromycin (From Biaxin) Allergy (Verified 12/31/24 11:04) Rash Abfsmff-[id number]-VaZ Reductase Inhibitor Adverse Reaction (Verified 12/31/24 11:04) MUSCLE ACHES Medications ???Medication ???Instructions ???Recorded ???Confirmed ???Type carvedilol 3.125 mg tablet 3.125 mg PO BID 09/14/21 12/31/24 History losartan 100 mg tablet 100 mg PO DAILY 09/14/21 12/31/24 History potassium chloride 10 mEq 10 meq PO DAILY 09/14/21 12/31/24 History capsule,extended release semaglutide 0.25 mg or 0.5 mg (2 0.25 mg subcut FR 09/14/21 5 History mg/1.5 mL) subcutaneous pen injector (Ozempic) omeprazole 40 mg capsule,delayed 40 mg PO QDAY #90 caps 07/03/24 Rx release resmetirom 80 mg tablet (Rezdiffra) 80 mg PO QDAY #30 tabs 12/31/24 12/31/24 Rx Have you fallen in the past year?: No Nurse's Note: PT here to review US results. States she is having increased fatigue and overall itching. Has stopped Ursodiol. Says she has not heard from anyone about Rezdiffra. [facility] Medical History Wears hearing aid Wears partial dentures Wears dentures Cancer Depression Diabetes Low iron Fatty liver Back pain Migraine headache Injury of head and neck TIA (transient ischemic attack) Dietary restriction Difficulty swallowing History of ulceration History of IBS Non-smoker CPAP (continuous positive airway pressure) dependence Shortness of breath on exertion Leg cramps History of pain when walking History of edema History of echocardiogram History of stress test Cardiology follow-up encounter CAD (coronary artery disease) Hx of benign gastric tumor Psoriatic arthritis Hypertension FH: cholecystectomy Myalgia GERD (gastroesophageal reflux disease) Dyspareunia Arthritis Esophageal varices without bleeding Surgical History History of lumpectomy of both breasts History of cardiac catheterization Hx of colonoscopy History of esophagogastroduodenoscopy (EGD) Hx of right cataract extraction Hx of left cataract extraction Hx of shoulder surgery Hx of arthroscopic knee surgery H/O: hysterectomy H/O adenoidectomy History of appendectomy Social History Smoking Status: Never smoker alcohol intake: never HPI HPI Chief Complaint: Fatty liver Details: GABBY GUILLEN, is a 79 F who presents to the office today for follow-up. EGD and colonoscopy . [facility] for GERD EGD irregular Zline; gastritis; Grade I esophageal varices of mid esophagus. Colonoscopy poor prep; internal/external hemorrhoids. US RUQ 4.29.22 fatty infiltration of liver; normal spleen [facility] established 2021 for gastritis, esophageal varices and IBS. Last OV 8. Increasing heartburn symptoms. Switch PPI to pantoprazole. Start famotidine PRN. Continue laxatives PRN. Liver elastography ordered. Continues vitamin E and ursodiol. Elastography 8.27.24; Liver stiffness measures 12.9 kPa compatible with F3-F4 (Moderate to severe liver fibrosis) Metavir score. 2. Status post cholecystectomy. OV 2..25 Pt continues with epigastric pain and burning. She is unsure if she is taking pantoprazole or omeprazole. She thinks she may be taking both. She discontinued the ursodiol as it was making her nauseous and causing diarrhea. Increase PPI. Start Rezdiffra. Liver elastography 7.22.25; Kpa 16 OV 8..25 patient here today to review results of her liver elastography. She is feeling well since starting the higher dose of the PPI. She denies abdominal pain, heartburn, nausea or vomiting. She does have some constipation still. ROS Const Constitutional: Positive for fatigue; No fever(s) or weight change ENT ENT: No difficulty swallowing Gastro GI: Positive for abdominal pain, diarrhea and nausea/dyspepsia; No belching, bloating, change in bowel habits, change in stool character, coffee ground emesis, constipation, cramping, heartburn, difficulty swallowing, feeling full early, excessive flatus, incontinent of stools, Vomiting blood/hematemesis, Blood in stool, loose stools, Black,tarry stools, pain with swallowing, vomiting or other Musc Musculoskeletal: Positive for joint pain, back pain, muscle cramps, muscle weakness and Arthritis Skin Skin: No yellowing (more content not included)... Normal [facility] Glomerular filtration rate ( GFR) estimation/1.73 sq m using serum, plasma, or whole bOrdered By: Alecia Padilla on 12-31-2024 GFR/1.73 sq M.predicted among non-blacks MDRD (S/P/Bld) [Vol rate/Area] 73 mL/min/{1.73_m2} >60 [facility] Comment on above: mL/min/1.73m2 CKD-EP I Creatinine Equation (2020) HbA1c (Bld)on 12-31-2024 Average glucose Estimated from glycated hemoglobin (Bld) [Mass/Vol] 100 mg/dL Normal [facility] Comment on above: Order Comment: Shane lin Type: BLOOD SPECIMENOrdering Facility: [facility] Address: [address] [place] [address] Result Comment: eAG: (Estimated average glucose) is a calculated value from HgbA1c and is customer retention representative of the average blood glucose level in the last 2-3 month period. Performed By: #### 5 5454-3 ####[facility] [id number] [place] [address] [place] HbA1c (Bld) [Mass fraction] 5.1 % Normal 4.3-5.6 [facility] Comment on above: Order Comment: Shane lin Type: BLOOD SPECIMENOrdering Facility: [facility] Address: [address] [place] [address] Result Comment: [place] Diabetes Association guidelines indicate that patients with HgbA1c in the range 5.7-6.4% are at increased risk for development of diabetes, and intervention by lifestyle modification may be beneficial. HgbA1c greater or equal to 6.5% is considered diagnostic of diabetes. Performed By: #### 5 5454-3 ####[facility] [id number] [place] [address] [place] Hematocrit Auto (Bld) [Volum e fraction]Ordered By: Alecia Padilla on 12-31-2024 Hematocrit (Bld) [Volume fraction] 38.7 % 37-47 [facility] Hemoglobin measurementOrdere d By: Alecia Padilla on 12-31-2024 Hemoglobin (Bld) [Mass/Vol] 13.0 g/dL 12.0-15.0 [facility] Immature granulocytes/100 WB C Auto (Bld)Ordered By: Alecia Padilla on 12-31-2024 Immature granulocytes/100 WBC (Bld) 0.400 % 0.0-0.9 [facility] Comment on above: IG% - Immature Granu locytes (promyelocytes, myelocytes and metamyelocytes) > 1% indicates that a LEFT SHIFT is Present. International normalized rat io (INR) calculationOrdered By: Alecia Padilla on 12-31-2024 INR Coag (Bld) [Relative time] 0.9 {INR} [facility] - Chemistry and C hemistry - challengeOrdered By: Alecia Padilla on 12-31-2024 AST [Catalytic activity/Vol] 19 U/L <32 [facility] MCV (mean corpuscular volume ) determinationOrdered By: Alecia Padilla on 12-31-2024 MCV (RBC) [Entitic vol] 90.8 fL 81-99 [facility] Mean corpuscular hemoglobin (MCH) determinationOrdered By: Alecia Padilla on 12-31-2024 MCH (RBC) [Entitic mass] 30.5 pg 27.0-32.0 [facility] Mean corpuscular hemoglobin concentration (MCHC) determinationOrdered By: Alecia Padilla on 12-31-2024 MCHC (RBC) [Mass/Vol] 33.6 g/dL 32-36 [facility] Mean platelet volume determi nationOrdered By: Alecia Padilla on 12-31-2024 Platelet mean volume (Bld) [Entitic vol] 9.9 fL 6.2-12.0 [facility] Monocyte percentageOrdered B y: Alecia Padilla on 12-31-2024 Monocytes/100 WBC (Bld) 7.4 % 0-10 [facility] Neutrophil percentageOrdered By: Alecia Padilla on 12-31-2024 Neutrophils/100 WBC (Bld) 59.5 % 47-70 [facility] Nucleated red blood cell per centageOrdered By: Alecia Padilla on 12-31-2024 Nucleated RBC/100 WBC (Bld) [Ratio] 0 % 0-5 [facility] Platelet countOrdered By: Talia Padilla on 12-31-2024 Platelets (Bld) [#/Vol] 280 10*3/uL 150-450 [facility] Potassium measurement (mass/ volume)Ordered By: Alecia Padilla on 12-31-2024 Potassium (Unsp spec) [Mass/Vol] 4.4 mmol/L 3.3-5.1 [facility] Prothrombin Time w/INRon INR Coag (PPP) [Relative time] 0.9 {INR} Normal [facility] Comment on above: Performed By: #### L 300.3900, L500.4050, L100.0100 #### [facility] [address] [place], [address] PT Coag (PPP) [Time] 12.4 s Normal 11.7-14.9 [facility] Comment on above: Performed By: #### L 300.3900, L500.4050, L100.0100 #### [facility] [address] [place], [address] Prothrombin timeOrdered By: Alecia Padilla on 12-31-2024 PT Coag (PPP) [Time] 12.4 s 11.7-14.9 [facility] RBC Auto (Bld) [#/Vol]Ordere d By: Alecia Padilla on 12-31-2024 RBC (Bld) [#/Vol] 4.26 10*6/uL 4.2-5.4 [facility] Serum creatinine measurement (mass/volume)Ordered By: Alecia Padilla on 12-31-2024 Creatinine [Mass/Vol] 0.82 mg/dL 0.70-1.20 [facility] Serum globulin measurementOr dered By: Alecia Padilla on 12-31-2024 Globulin (S) [Mass/Vol] 2.6 g/dL 2.2-4.2 [facility] Serum glucose measurement (m ass/volume)Ordered By: Alecia Padilla on 12-31-2024 Glucose [Mass/Vol] 86 mg/dL 70-99 [facility] Serum or plasma alanine tabares otransferase (ALT) measurementOrdered By: Alecia Padilla on 12-31-2024 ALT [Catalytic activity/Vol] 12 U/L <35 [facility] Serum or plasma albumin chelo urement (mass/volume)Ordered By: Alecia Padilla on 12-31-2024 Albumin [Mass/Vol] 4.0 g/dL 3.4-4.8 [facility] Serum or plasma albumin/glob ulin mass ratioOrdered By: Alecia Padilla on 12-31-2024 Albumin/Globulin [Mass ratio] 1.5 {ratio} 0.9-2.4 [facility] Serum or plasma alkaline carissa sphatase measurementOrdered By: Alecia Padilla on 12-31-2024 ALP [Catalytic activity/Vol] 86 U/L 35-104 [facility] Serum or plasma calcium chelo urement (mass/volume)Ordered By: Alecia Padilla on 12-31-2024 Calcium [Mass/Vol] 9.9 mg/dL 7.6-11.0 [facility] Serum or plasma urea nitroge n measurement (mass/volume)Ordered By: Alecia Padilla on 12-31-2024 Urea nitrogen [Mass/Vol] 18 mg/dL 4-19 [facility] Sodium levelOrdered By: Jaylene Padilla on 12-31-2024 Sodium [Moles/Vol] 144 mmol/L 133-145 [facility] TSH SerPl-aCncon 12-31-2024 TSH Qn 2.930 m[IU]/L Normal 0.270-4.200 [facility] Comment on above: Order Comment: Speci men Type: BLOOD SPECIMENOrdering Facility: [facility] Address: [address] [place] [address] Performed By: #### 3 016-3 ####[facility] [id number] [place] [address] [place] [facility] Total proteinOrdered By: Luci brush Valerie on 12-31-2024 Protein [Mass/Vol] 6.6 g/dL 5.9-8.4 [facility] White blood cell (WBC) count Ordered By: Alecia Valerie on 12-31-2024 WBC (Bld) [#/Vol] 5.7 10*3/uL 4.4-11.0 [facility] CNPNon 12-12-2024 CNPN Telephone (INTMWS) TEJINDERGABBY PUENTES ([id number]) 1945 F T Date Time Provider Department 12/12/24 RODRIGO SALAS INTMWS During your visit today, we recorded the following information about you: Ava Alexandra RN 12/12/2024 1:06 PM Signed [facility] form [facility] calling regarding Repatha Pushtronex order received by Dr. Salas. [facility] reports they received a notice from the tree scout that this product has been discontinued. [facility] asking if Dr. Salas would like to check her references and see if there is another type of Repatha she would like ordered. SANTIAGO Nevarez Chitra, MD 12/12/2024 1:47 PM Signed Lizzy, Would you happen to know what medication is replacing Repatha? Thanks, Regards, Toña Lang MD, [facility] 12/12/2024 3:50 PM Signed The Repatha Pushtronex system has been discontinued; however, the Repatha SureClick auto injector is still active and available. The available Repatha SureClick auto injector is only available in the 140 mg/ml single-dose injector. To administer the originally prescribed dose of 450 mg once monthly, it is recommended to administer 3 separate subcutaneous 140 mg injections consecutively within a 30-minute period. OR alternative dosing for secondary prevention for Repatha is 140 mg every 2 weeks. Toña Slaughter, PharmD, BCACP Primary Care Clinical Railroad Firer/Fireman (Covering for Tamra Lira[facility]) Allergies As of Date: 12/12/2024 Noted Allergy Reaction AMLODIPINE 09/17/2020 7 - Swelling BIAXIN (CLARITHROMYCIN) 08/27/2007 2 - Rash METFORMIN 11/19/2009 6 - Diarrhea Comments: ER formulation caused symptoms at 1 tablet per day SPIRONOLACTONE 10/11/2022 14 - Other: See Comments Comments: lightheaded and dizzy ODZHARW-AUE-RRQ REDUCTASE INHIBIT*08/08/2012 5 - Intolerance Comments: myalgia and diarrhea Date Reviewed: 10/29/2024 Reviewed by: Clemencia Loredo LPN - Fully Assessed Reason for Visit: Pharmacy Call [Other] Prescriptions as of 12/12/2024 - carvedilol (COREG) 3.125 mg tablet Take 1 tablet by mouth two times a day with meals. - REPATHA PUSHTRONEX 420 mg/3.5 mL wearable injector 3.5 mL by IM/SQ route once every month. - hydrocortisone 2.5 % cream abdomenal areas as needed - losartan (COZAAR) 100 mg tablet Take 1 tablet by mouth once daily. - DULoxetine (CYMBALTA) 30 mg capsule Take 1 capsule by mouth once daily. - pantoprazole DR (PROTONIX) 20 mg tablet Take 20 mg by mouth once daily. - blood sugar diagnostic (BLOOD GLUCOSE TEST) test strip Test blood sugar(s) 1 times daily. Dx: Type 2 DM - Controlled E11.9 Insulin: No - Lancets lancets Test blood sugar(s) 1 times daily. Dx: Type 2 DM - Controlled E11.9 Insulin: No - Blood Sugar Diagnostic, Drum (ACCU-CHEK COMPACT TEST) Strp TEST BLOOD SUGAR ONCE DAILY. 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] 04/01/2005 impingement syndrome right shoulder [M25.819] 04/01/2005 07/04/2005 ROTATOR CUFF SYND NOS [M71.9, M67.919] 04/01/2005 07/04/2005 AFTERCARE NOS [Z51.89] 04/29/2005 07/04/2005 SURGERY FOLLOWUP NOS [Z09] 04/29/2005 07/04/2005 Hereditary and idiopathic peripheral neuropathy*11/17/2005 05/26/2020 SPRAIN OF FOOT NOS [S93.609A] 11/17/2005 SHOULDER REGION DIS NEC [M25.819] 01/17/2006 01/17/2006 impingement syndrome [M25.819] 01/17/2006 CHRONIC RHINITIS [J31.0] 07/12/2006 Unspecified sleep apnea [G47.30] 09/11/2006 IMPAIRED FASTING GLUCOSE [R73.09] 08/17/2007 FEMALE GENITAL SYMPTOMS NOS [N94.9] 08/27/2007 ABDOMINAL PAIN LLQ [R10.32] 08/27/2007 ABDOMINAL PAIN RLQ [R10.31] 08/27/2007 FEMALE STRESS INCONTINENCE [N39.3] 08/27/2007 URGE INCONTINENCE [N39.41] 08/27/2007 MASTODYNIA [N64.4] 08/27/2007 IRRITABLE COLON [K58.9] 08/27/2007 VIRAL WARTS NOS [B07.9] 08/29/2008 Generalized osteoarthrosis, unspecified site [M*08/29/2008 04/05/2022 PAIN IN LIMB [M79.609] 08/29/2008 ACQ DEFORMITY OF TOE NEC [M20.5X9] 09/12/2008 Uncontrolled type 2 diabetes mellitus with hype*04/01/2010 06/09/2020 Unspecified constipation [K59.00] 09/10/2010 Rectocele [N81.6] 09/10/2010 Folliculitis [L73.9] 09/15/2010 Acne vulgaris [L70.0] 09/15/2010 Other seborrheic dermatitis [L21.8] 09/15/2010 Other seborrheic keratosis [L82.1] 09/15/2010 Stucco keratoses [L82.1] 09/15/2010 Eczema intertrigo [L30.4] 09/15/2010 Xerosis cutis [L85.3] 09/15/2010 Actinic Damage//Sun-damaged skin [L57.8] 09/15/2010 Solar (more content not included)... Normal [facility] ABD Limited w/ Elastographyo n 12-03-2024 ABD Limited w/ Elastography [facility] [address], [place] [id number] ABD Limited w/ Elastography MR#: [id number] Acct: [id number] Name: GABBY GUILLEN Rep #: [id number] : 1945 F 79 From: [place], MD PCP: Dr. Rodrigo Salas MD Status: REG CLI Study: ABD Limited w/ Elastography Date of Exam: 11/13 07/09 Exam# [id number] Ordering Dr: Alecia Padilla PROCEDURE: ABD LIMITED W/ ELASTOGRAPHY REASON FOR EXAM: FATTY LIVER COMPARISON: Abdominal ultrasound 01/09/2024. TECHNIQUE: Right upper quadrant abdominal ultrasound. [facility]aka ElastQ Imaging shear wave elastography for non- invasive assessment of liver tissue stiffness. [facility]aka EPIQ Elite. FINDINGS: LIVER: Size: Normal in size and echogenicity, measuring 14.8 cm. The bile ducts are within normal limits. The major portal vein is patent with normal directional flow at midline. Contour: Normal Lesions: None identified Elastography: EQI Med: 16.0 kPa EQI Med Deniz: 2.3 m/s IQR/Med: 14.9/8.2 %* GALLBLADDER: Prior cholecystectomy. COMMON BILE DUCT: Normal measuring 0.4 cm. PANCREAS: Obscured by bowel gas. Visualized portions of the right kidney are unremarkable. No right upper quadrant ascites. US/ABD Limited w/ Elastography IMPRESSION: MODERATE TO SEVERE HEPATIC FIBROSIS. Metavir score of F3-F4, unchanged since prior examination. Prior cholecystectomy. Reference Values: SRU <1.37 m/s (5.7kPa): No to mild fibrosis 1.37 m/s - 2.2 m/s: Moderate to severe fibrosis >2.2 m/s (15kPa): Significant fibrosis / cirrhosis METAVIR Score F2 or higher: 1.34 m/s (5.7kPa) F3 or higher: 1.55 m/s (7.3kPa) F4: 1.80 m/s (10kPa) * If the IQR/Med is >30%, the variance in the measurements is a large and the accuracy of the measurement may be in question. Reading Location: [id number] CC: Dr. Rodrigo Salas MD; ODILON Ross Intern Retail: Signed Normal [facility] CNOVon 10-29-2024 OV Office Visit (INTMWS ) GABBY GUILLEN ([id number]) 1945 F [facility] Date Time Provider Department 10/29/24 11:20 AM RODRIGO SALAS INTMWS During your visit today, we recorded the following information about you: Pulse Respiration Blood pressure Weight 65/minute 16/minute 134/84 63.7 kg Rodrigo Salas MD 10/29/2024 3:07 PM Signed Reason for Visit Chronic medication follow up HPI Gabby Guillen is a 79-year-old female with a history of hypercholesterolemia, CAD, sleep apnea, and fatty liver disease, presenting for evaluation of elevated cholesterol levels. Gabby reports recent blood work showing elevated cholesterol levels, with LDL being very high. She has a history of hypercholesterolemia and has been off cholesterol medication for the past few years. She was previously on Repatha but discontinued it due to access issues. She has a history of statin intolerance. She has an upcoming appointment with her spiral binder, Dr. Downing, in November. She has a history of CAD with arterial blockages and has been advised by her spiral binder that these are not currently a cause for concern. Her last cholesterol test showed an LDL of 130 mg/dL, but recent tests indicate an increase. She denies significant changes in her diet, stating that she does not consume much red meat and has not altered her dietary habits recently. She believes her hypercholesterolemia is genetic. She engages in physical activities such as walking and gardening but is not on a formal exercise program. She has a history of sleep apnea, which has improved following weight loss. She also has a history of fatty liver disease and GERD, which she describes as really bad. She reports that her medications exacerbate her heartburn. She has an upcoming appointment with her cloth framer, Dr. Alexandra, who plans to perform another liver ultrasound. Social History Tobacco Use Smoking status: Never Smokeless tobacco: Never Vaping Use Vaping status: Never Used Substance Use Topics Alcohol use: Not Currently Drug use: Never Past medical history, appointments, medications, allergies reviewed. Pertinent Lab/Diagnostic Studies are reviewed and discussed today Current Outpatient Medications: carvedilol (COREG) 3.125 mg tablet losartan (COZAAR) 100 mg tablet DULoxetine (CYMBALTA) [address] (PROTONIX) 20 mg tablet blood sugar diagnostic (BLOOD GLUCOSE TEST) test strip Blood Sugar Diagnostic, Drum (ACCU-CHEK COMPACT TEST) Strp blood-glucose meter, drum-type(ACCU-CHEK COMPACT PLUS CARE KIT) REPATHA PUSHTRONEX 420 mg/3.5 mL wearable injector hydrocortisone 2.5 % cream Lancets lancets Health Maintenance Depression Screening Anxiety Screening DTaP,Tdap,Td Vaccine(2 - Td or Tdap) Advance Directive Discussion Medicare Advantage Annual Wellness Visit@ Review Of Systems Constitutional: (-) weight gain Gastrointestinal: (+) heartburn Physical Exam BP 134/84 Pulse 65 Resp 16 Wt 63.7 kg (140 lb 6.4 oz) SpO2 98% BMI 27.42 kg/m? GENERAL: NAD, alert and oriented SKIN: unremarkable, no rash or skin lesions. HEAD: normocephalic EYES: PERRLA, EOMI, conjunctiva clear EARS: external ears normal, canals clear, TM's normal. LUNGS: Clear to auscultation bilaterally, no wheezes/rhonchi/rales. HEART: Regular rate and rhythm, no murmurs. No ectopy. EXTREMITIES: Normal, No deformities, No skin discoloration, No edema. NEURO: Awake, alert and oriented x3, cranial nerves II-XII grossly intact, normal gait, no involuntary motions Assessment and Plan 1. Type 2 diabetes mellitus with diabetic peripheral angiopathy without gangrene, without long-term current use of insulin (HCC) (E11.51) Hemoglobin A1c is well-controlled. - Continue current diabetes management regimen. 2. Coronary artery disease of [place] heart with stable angina pectoris, unspecified vessel or lesion type (I25.118) Patient has a history of coronary artery disease with stable angina. Recent lipid panel shows elevated LDL cholesterol levels. - Discussed the importance of lipid management in the context of coronary artery disease. - Referral to cardiology for further management of hyperlipidemia and statin intolerance. 3. Statin intolerance (Z78.9) Patient has a history of statin intolerance and has previously been on Repatha injections. - Discussed the potential benefits of resuming Repatha injections. - Referral to cardiology to discuss alternative lipid-lowering therapies. 4. Mixed hyperlipidemia (E78.2) Recent lipid panel shows significantly elevated LDL cholesterol levels. - Referral to cardiology for further management. 5. Essential hypertension (I10) Blood pressure readings are within acceptable range. - Continue current antihypertensive medication regimen. 6. Gastroesophageal reflux disease without esophagitis (K21.9) Patient r (more content not included)... [facility] ([id number]) 1945 F T Date Time Provider Department 10/29/24 RODRIGO SALAS INTMWS During your visit today, we recorded the following information about you: Mary Eduardo LPN 10/29/2024 4:01 PM Signed Electronic PA rec'd and completed for REPATHA PUSHTRONEX 420 mg/3.5 mL wearable injector Mary Eduardo LPN 10/29/2024 4:15 PM Signed Prior authorization approved Payer: FRANK Arriaza [phone] Approval Details Authorized from May 15, 2024 to May 14, 2025 Electronic appeal: Not supported View History Notes Time User Attachment Attachment received from payer. 10/29/2024 4:11 PM Cchs, Rx Priorauth In Document Medication Being Authorized REPATHA PUSHTRONEX 420 mg/3.5 mL wearable injector 3.5 mL by IM/SQ route once every month. Dispense: 10.5 mL Refills: 5 FACUNDO Start: 10/29/2024 Class: Normal Diagnoses: Mixed hyperlipidemia This order has been released to its destination. To be filled at: e- [facility]/pharmacy #[id number] [place] [address] [address] [facility] [phone] [facility] [id number] Pharmacy notified. Allergies As of Date: 10/29/2024 Noted Allergy Reaction AMLODIPINE 09/17/2020 7 - Swelling BIAXIN (CLARITHROMYCIN) 08/27/2007 2 - Rash METFORMIN 11/19/2009 6 - Diarrhea Comments: ER formulation caused symptoms at 1 tablet per day SPIRONOLACTONE 10/11/2022 14 - Other: See Comments Comments: lightheaded and dizzy [id number] REDUCTASE INHIBIT*08/08/2012 5 - Intolerance Comments: myalgia and diarrhea Date Reviewed: 10/29/2024 Reviewed by: Clemencia Loredo LPN - Fully Assessed Reason for Visit: Insurance Authorization [[id number]] Prescriptions as of 10/29/2024 - REPATHA PUSHTRONEX 420 mg/3.5 mL wearable injector 3.5 mL by IM/SQ route once every month. - hydrocortisone 2.5 % cream abdomenal areas as needed - carvedilol (COREG) 3.125 mg tablet Take 1 tablet by mouth two times a day with meals. - losartan (COZAAR) 100 mg tablet Take 1 tablet by mouth once daily. - DULoxetine (CYMBALTA) 30 mg capsule Take 1 capsule by mouth once daily. - pantoprazole DR (PROTONIX) 20 mg tablet Take 20 mg by mouth once daily. - blood sugar diagnostic (BLOOD GLUCOSE TEST) test strip Test blood sugar(s) 1 times daily. Dx: Type 2 DM - Controlled E11.9 Insulin: No - Lancets lancets Test blood sugar(s) 1 times daily. Dx: Type 2 DM - Controlled E11.9 Insulin: No - Blood Sugar Diagnostic, Drum (ACCU-CHEK COMPACT TEST) Strp TEST BLOOD SUGAR ONCE DAILY. 250.00 - blood-glucose meter, drum-type(ACCU-CHEK COMPACT PLUS CARE KIT) As directed Problem List As Of Date 10/29/2024 Noted Resolved ADJUSTMENT DISORDER WITH DEPRESSED MOOD [F43.21]03/17/2005 ASTHMA UNSPECIFIED [J45.909] 03/17/2005 Mixed hyperlipidemia [E78.2] 03/17/2005 Essential hypertension [I10] 03/17/2005 IMPAIRED FASTING GLUCOSE [R73.01] 03/17/2005 MYALGIA AND MYOSITIS NOS [[id number]] ESOPHAGEAL REFLUX [K21.9] RHEUMATOID ARTHRITIS [M06.9] 07/12/2006 LOC PRIM OSTEOART-SHLDER [M19.019] 04/01/2005 impingement syndrome right shoulder [M25.819] 04/01/2005 07/04/2005 ROTATOR CUFF SYND NOS [M71.9, M67.919] 04/01/2005 07/04/2005 AFTERCARE NOS [Z51.89] 04/29/2005 07/04/2005 SURGERY FOLLOWUP NOS [Z09] 04/29/2005 07/04/2005 Hereditary and idiopathic peripheral neuropathy*11/17/2005 05/26/2020 SPRAIN OF FOOT NOS [S93.609A] 11/17/2005 SHOULDER REGION DIS NEC [M25.819] 01/17/2006 01/17/2006 impingement syndrome [M25.819] 01/17/2006 CHRONIC RHINITIS [J31.0] 07/12/2006 Unspecified sleep apnea [G47.30] 09/11/2006 IMPAIRED FASTING GLUCOSE [R73.09] 08/17/2007 FEMALE GENITAL SYMPTOMS NOS [N94.9] 08/27/2007 ABDOMINAL PAIN LLQ [R10.32] 08/27/2007 ABDOMINAL PAIN RLQ [R10.31] 08/27/2007 FEMALE STRESS INCONTINENCE [N39.3] 08/27/2007 URGE INCONTINENCE [N39.41] 08/27/2007 MASTODYNIA [N64.4] 08/27/2007 IRRITABLE COLON [K58.9] 08/27/2007 VIRAL WARTS NOS [B07.9] 08/29/2008 Generalized osteoarthrosis, unspecified site [M*08/29/2008 04/05/2022 PAIN IN LIMB [M79.609] 08/29/2008 ACQ DEFORMITY OF TOE NEC [M20.5X9] 09/12/2008 Uncontrolled type 2 diabetes mellitus with hype*04/01/2010 06/09/2020 Unspecified constipation [K59.00] 09/10/2010 Rectocele [N81.6] 09/10/2010 Folliculitis [L73.9] 09/15/2010 Acne vulgaris [L70.0] 09/15/2010 Other seborrheic dermatitis [L21.8] 09/15/2010 Other seborrheic keratosis [L82.1] 09/15/2010 Stucco keratoses [L82.1] 09/15/2010 Eczema intertrigo [L30.4] 09/15/2010 Xerosis cutis [L85.3] 09/15/2010 Actinic Damage//Sun-damaged skin [L57.8] 09/15/2010 Solar lentigines [L81.4] 09/15/2010 Telangiectasia [I78.1] 09/15/2010 DM (diabetes mellitus) (HCC) [E11.9] 09/28/2010 06/09/2020 Pruritus - disorder 02/23/2011 Cutaneous skin tags [L91.8] 02/23/2011 Plantar fascial fibromatosis [M72.2] 06/13/2011 Capsulitis [M77.9] 09 (more content not included)... [facility] ([id number]) 1945 F [facility] Date Time Provider Department 10/29/24 REINALDO CHOI During your visit today, we recorded the following information about you: Hazel Peck 10/29/2024 12:11 PM Signed Patient needs seen sooner than June 2025 as PCP thinks patient may benefit from Repatha Injections. Please advise patient if there is a sooner appointment available. Sheri Vidal RN 10/30/2024 9:50 AM Signed Patient ordered Repatha by PCP due to elevated cholesterol. Patient scheduled in [place] in February. Sheri Vidal RN Allergies As of Date: 10/29/2024 Noted Allergy Reaction AMLODIPINE 09/17/2020 7 - Swelling BIAXIN (CLARITHROMYCIN) 08/27/2007 2 - Rash METFORMIN 11/19/2009 6 - Diarrhea Comments: ER formulation caused symptoms at 1 tablet per day SPIRONOLACTONE 10/11/2022 14 - Other: See Comments Comments: lightheaded and dizzy HVHSIOC-QXS-CMG REDUCTASE INHIBIT*08/08/2012 5 - Intolerance Comments: myalgia and diarrhea Date Reviewed: 10/29/2024 Reviewed by: Clemencia Loredo LPN - Fully Assessed Reason for Visit: Appointment [[id number]] Prescriptions as of 10/30/2024 - REPATHA PUSHTRONEX 420 mg/3.5 mL wearable injector 3.5 mL by IM/SQ route once every month. - hydrocortisone 2.5 % cream abdomenal areas as needed - carvedilol (COREG) 3.125 mg tablet Take 1 tablet by mouth two times a day with meals. - losartan (COZAAR) 100 mg tablet Take 1 tablet by mouth once daily. - DULoxetine (CYMBALTA) 30 mg capsule Take 1 capsule by mouth once daily. - pantoprazole DR (PROTONIX) 20 mg tablet Take 20 mg by mouth once daily. - blood sugar diagnostic (BLOOD GLUCOSE TEST) test strip Test blood sugar(s) 1 times daily. Dx: Type 2 DM - Controlled E11.9 Insulin: No - Lancets lancets Test blood sugar(s) 1 times daily. Dx: Type 2 DM - Controlled E11.9 Insulin: No - Blood Sugar Diagnostic, Drum (ACCU-CHEK COMPACT TEST) Strp TEST BLOOD SUGAR ONCE DAILY. 250.00 - blood-glucose meter, drum-type(ACCU-CHEK COMPACT PLUS CARE KIT) As directed Problem List As Of Date 10/29/2024 Noted Resolved ADJUSTMENT DISORDER WITH DEPRESSED MOOD [F43.21]03/17/2005 ASTHMA UNSPECIFIED [J45.909] 03/17/2005 Mixed hyperlipidemia [E78.2] 03/17/2005 Essential hypertension [I10] 03/17/2005 IMPAIRED FASTING GLUCOSE [R73.01] 03/17/2005 MYALGIA AND MYOSITIS NOS [[id number]] ESOPHAGEAL REFLUX [K21.9] RHEUMATOID ARTHRITIS [M06.9] 07/12/2006 LOC PRIM OSTEOART-SHLDER [M19.019] 04/01/2005 impingement syndrome right shoulder [M25.819] 04/01/2005 07/04/2005 ROTATOR CUFF SYND NOS [M71.9, M67.919] 04/01/2005 07/04/2005 AFTERCARE NOS [Z51.89] 04/29/2005 07/04/2005 SURGERY FOLLOWUP NOS [Z09] 04/29/2005 07/04/2005 Hereditary and idiopathic peripheral neuropathy*11/17/2005 05/26/2020 SPRAIN OF FOOT NOS [S93.609A] 11/17/2005 SHOULDER REGION DIS NEC [M25.819] 01/17/2006 01/17/2006 impingement syndrome [M25.819] 01/17/2006 CHRONIC RHINITIS [J31.0] 07/12/2006 Unspecified sleep apnea [G47.30] 09/11/2006 IMPAIRED FASTING GLUCOSE [R73.09] 08/17/2007 FEMALE GENITAL SYMPTOMS NOS [N94.9] 08/27/2007 ABDOMINAL PAIN LLQ [R10.32] 08/27/2007 ABDOMINAL PAIN RLQ [R10.31] 08/27/2007 FEMALE STRESS INCONTINENCE [N39.3] 08/27/2007 URGE INCONTINENCE [N39.41] 08/27/2007 MASTODYNIA [N64.4] 08/27/2007 IRRITABLE COLON [K58.9] 08/27/2007 VIRAL WARTS NOS [B07.9] 08/29/2008 Generalized osteoarthrosis, unspecified site [M*08/29/2008 04/05/2022 PAIN IN LIMB [M79.609] 08/29/2008 ACQ DEFORMITY OF TOE NEC [M20.5X9] 09/12/2008 Uncontrolled type 2 diabetes mellitus with hype*04/01/2010 06/09/2020 Unspecified constipation [K59.00] 09/10/2010 Rectocele [N81.6] 09/10/2010 Folliculitis [L73.9] 09/15/2010 Acne vulgaris [L70.0] 09/15/2010 Other seborrheic dermatitis [L21.8] 09/15/2010 Other seborrheic keratosis [L82.1] 09/15/2010 Stucco keratoses [L82.1] 09/15/2010 Eczema intertrigo [L30.4] 09/15/2010 Xerosis cutis [L85.3] 09/15/2010 Actinic Damage//Sun-damaged skin [L57.8] 09/15/2010 Solar lentigines [L81.4] 09/15/2010 Telangiectasia [I78.1] 09/15/2010 DM (diabetes mellitus) (HCC) [E11.9] 09/28/2010 06/09/2020 Pruritus - disorder 02/23/2011 Cutaneous skin tags [L91.8] 02/23/2011 Plantar fascial fibromatosis [M72.2] 06/13/2011 Capsulitis [M77.9] 02/09/2012 Screening for cardiovascular condition [Z13.6] 07/13/2020 Palpitations [R00.2] 07/13/2020 Chest pain due to myocardial ischemia [I25.9] 07/13/2020 SOB (shortness of breath) [R06.02] 09/14/2020 Obesity, Class II, BMI 35-39.9 [E66.812] 09/14/2020 04/05/2022 Coronary artery disease involving [place]*11/09/2020 Esophageal varices without bleeding (HCC) [I85.*07/23/2021 Prediabetes [R73.03] 12/14/2021 Lumbar sprain [S33.5XXA] 12/14/2021 Fatty liver [K76.0] 12/14/2021 Obesity, Class I, BMI 30-34.9 [E66.811] 01/03/2022 PAD (periphe (more content not included)... Normal [facility] CNOVon 10-14-2024 CNOV Office Visit (PODIWS ) GABBY GUILLEN ([id number]) 1945 F [facility] Date Time Provider Department 10/14/24 10:00 AM LIUDMILA NORRIS PODIWS During your visit today, we recorded the following information about you: Miya Chávez, RN 10/14/2024 10:44 AM Signed Patient presents with: Left Foot - Established Patient, Follow Up, Diabetic Foot Check Right Foot - Established Patient, Follow Up, Diabetic Foot Check Patient presents for 1.5 year follow up diabetic foot/nail care. Also due for diabetic foot exam. MAURIZIO 05/23/23 Liudmila Norris 10/14/2024 10:44 AM Signed Last saw pcp: 07/02/24 Subjective: This 79 year old female presents to clinic for diabetic foot check. Patient has the following complaints: b/l hallux ingrowing toenails with pain. Patient admits to being diabetic for 20+ years now. Patient +B/T/N in feet at this time. Patient -pain in legs when walking. No other pedal complaints at this time. No change in medications or medical history since last visit. PAIN EVALUATION No data found in the last 1 encounters. Hemoglobin A1C (%) Date Value 09/19/2024 5.3 11/28/2023 5.1 03/27/2023 5.2 12/09/2022 5.1 10/05/2022 5.3 03/23/2021 6.2 12/21/2020 6.1 09/14/2020 6.2 05/27/2020 6.4 08/08/2012 5.7 PCP: Rodrigo Salas MD PAST MEDICAL HISTORY Diagnosis Date Adjustment disorder with depressed mood 03/17/2005 Arthritis Coronary artery disease Dyspareunia 03/17/2005 Esophageal reflux Gastroesophageal reflux Esophageal reflux HLD (hyperlipidemia) HTN (hypertension) Impaired fasting glucose 03/17/2005 Mixed hyperlipidemia Myalgia and myositis, unspecified Other and unspecified hyperlipidemia 03/17/2005 PMH - PAST MEDICAL HISTORY OF TIA's PMH - PAST MEDICAL HISTORY OF skin cancer Rheumatoid arthritis(714.0) Trace cataracts 2007 Uncontrolled type 2 diabetes mellitus with hyperglycemia (HCC) 04/01/2010 Unspecified asthma(493.90) 03/17/2005 Unspecified closed fracture of ankle Unspecified essential hypertension 03/17/2005 Current Outpatient Medications Medication Sig carvedilol (COREG) 3.125 mg tablet Take 1 tablet by mouth two times a day with meals. losartan (COZAAR) 100 mg tablet Take 1 tablet by mouth once daily. DULoxetine (CYMBALTA) 30 mg capsule Take 1 capsule by mouth once daily. pantoprazole DR (PROTONIX) 20 mg tablet Take 20 mg by mouth once daily. blood sugar diagnostic (BLOOD GLUCOSE TEST) test strip Test blood sugar(s) 1 times daily. Dx: Type 2 DM - Controlled E11.9 Insulin: No Lancets lancets Test blood sugar(s) 1 times daily. Dx: Type 2 DM - Controlled E11.9 Insulin: No hydrocortisone 2.5 % cream abdomenal areas as needed Blood Sugar Diagnostic, Drum (ACCU-CHEK COMPACT TEST) Strp TEST BLOOD SUGAR ONCE DAILY. 250.00 blood-glucose meter, drum-type(ACCU-CHEK COMPACT PLUS CARE KIT) As directed REPATHA PUSHTRONEX 420 mg/3.5 mL wearable injector INJECT 3.5 ML BY INJECTION(UNSPECIFIED PARENTERAL ROUTES) ROUTE ONCE EVERY MONTH. ONCE A MONTH (Patient not taking: No sig reported) No current facility-administered medications for this visit. ALLERGIES Allergen Reactions Amlodipine Swelling Biaxin [Clarithromy* Rash Metformin Diarrhea ER formulation caused symptoms at 1 tablet per day Spironolactone Other: See Comments lightheaded and dizzy Arsgvwq-Krw-Cuq Red* Intolerance myalgia and diarrhea PAST SURGICAL HISTORY Procedure Laterality Date ABDOMINAL SURGERY HX ADENOIDECTOMY PRIMARY Adenoidectomy ADENOIDECTOMY SECONDARY AGE 12/> APPENDECTOMY age 30s incidental to [facility] APPENDECTOMY HX BIOPSY BREAST OPEN INCISIONAL Bx of breast, incisional x3 both BREAST SURGERY HX CHOLECYSTECTOMY Cholecystectomy CHOLECYSTECTOMY COLONOSCOPY FLX DX W/COLLJ SPEC WHEN PFRMD 08/2002 Colonoscopy COLONOSCOPY FLX DX W/COLLJ SPEC WHEN PFRMD 2010 Colonoscopy COLONOSCOPY SCREENING 07/07/2021 EGD W/O BRSH SPEC VARICIES INJ 07/07/2021 ESOPHAGOGASTRODUODENOSCOPY TRANSORAL DIAGNOSTIC EGD ESOPHAGOGASTRODUODENOSCOPY TRANSORAL DIAGNOSTIC 08/2002 EGD ESOPHAGOGASTRODUODENOSCOPY TRANSORAL DIAGNOSTIC 04/14/2011 EGD EYE SURGERY HX INCISE FINGER TENDON SHEATH Right 09/04/2024 Right trigger thumb release KNEE LEFT OP SURGERY LUMPECTOMY/RADIOTHERAPY DIAG MAMM/A10 1980s bilat NEUROPLASTY AND/TRANSPOS MEDIAN NRV CARPAL TUNNE both PAST SURGICAL HISTORY OF benign leg tumor PAST SURGICAL HISTORY OF multiple brest lumpectomy x3 benign both PAST SURGICAL HISTORY OF facial/mouth surgery PAST SURGICAL HISTORY OF dental surgery PAST SURGICAL HISTORY OF bladder/colon with fistula tumor benign PAST SURGICAL HISTORY OF benign tumor from right lower leg PAST SURGICAL HISTORY OF 04/27/2005 right shoulder scope and debridement SKIN BIOPSY HX TONSILLECTOMY HX TONSILLECTOMY PRIMARY/SECONDARY Tonsillectomy TOTAL ABDOMINAL HYSTERECT (more content not included)... [facility] GABBY GUILLEN ([id number]) 1945 F T Date Time Provider Department 10/14/24 9:30 AM KURT CARDONA During your visit today, we recorded the following information about you: Kurt Cardona MD 10/14/2024 9:25 AM Signed Kurt Cardona MD Department of Orthopaedics Orthopaedics [address] [facility] [address] Dept: [phone] Dept October 14, 2024 CHIEF COMPLAINT: Post Op of the Right Hand. Patient here today for 5 weeks 4 days post op right trigger thumb release. She does still have some intermittent pain. ASSESSMENT: M65.311 Trigger thumb of right hand (primary encounter diagnosis) PLAN: She is doing quite well after surgery. She has no locking or catching. Just some general soreness in both hands consistent with her arthritis. The thumb specifically is just a bit achy at times but she is using it much better than preoperatively. She can follow-up on an as-needed basis. Exam: Healed incision without any issues. Mild and appropriate pinkness and firmness. No locking or catching. Neurovascular exam intact Supporting Information Below: Medications: Current Outpatient Medications Medication Sig carvedilol (COREG) 3.125 mg tablet Take 1 tablet by mouth two times a day with meals. losartan (COZAAR) 100 mg tablet Take 1 tablet by mouth once daily. DULoxetine (CYMBALTA) 30 mg capsule Take 1 capsule by mouth once daily. pantoprazole DR (PROTONIX) 20 mg tablet Take 20 mg by mouth once daily. hydrocortisone 2.5 % cream abdomenal areas as needed REPATHA PUSHTRONEX 420 mg/3.5 mL wearable injector INJECT 3.5 ML BY INJECTION(UNSPECIFIED PARENTERAL ROUTES) ROUTE ONCE EVERY MONTH. ONCE A MONTH (Patient not taking: No sig reported) blood sugar diagnostic (BLOOD GLUCOSE TEST) test strip Test blood sugar(s) 1 times daily. Dx: Type 2 DM - Controlled E11.9 Insulin: No Lancets lancets Test blood sugar(s) 1 times daily. Dx: Type 2 DM - Controlled E11.9 Insulin: No Blood Sugar Diagnostic, Drum (ACCU-CHEK COMPACT TEST) Strp TEST BLOOD SUGAR ONCE DAILY. 250.00 blood-glucose meter, drum-type(ACCU-CHEK COMPACT PLUS CARE KIT) As directed No current facility-administered medications for this visit. Allergies: Amlodipine, Biaxin [Clarithromycin], Metformin, Spironolactone, and Spapmtv-Qwb-Zsa Reductase Inhibitors Kurt Cardona MD Referring Provider: KURT CARDONA [[id number]] Allergies As of Date: 10/14/2024 Noted Allergy Reaction AMLODIPINE 09/17/2020 7 - Swelling BIAXIN (CLARITHROMYCIN) 08/27/2007 2 - Rash METFORMIN 11/19/2009 6 - Diarrhea Comments: ER formulation caused symptoms at 1 tablet per day SPIRONOLACTONE 10/11/2022 14 - Other: See Comments Comments: lightheaded and dizzy QBPZIJJ-RSI-DIB REDUCTASE INHIBIT*08/08/2012 5 - Intolerance Comments: myalgia and diarrhea Date Reviewed: 10/14/2024 Reviewed by: Darlene Florian MA - Fully Assessed Reason for Visit: Post Op [174] Primary Visit Diagnosis:Trigger thumb of right hand [M65.311] Prescriptions as of 10/14/2024 - carvedilol (COREG) 3.125 mg tablet Take 1 tablet by mouth two times a day with meals. - losartan (COZAAR) 100 mg tablet Take 1 tablet by mouth once daily. - REPATHA PUSHTRONEX 420 mg/3.5 mL wearable injector INJECT 3.5 ML BY INJECTION(UNSPECIFIED PARENTERAL ROUTES) ROUTE ONCE EVERY MONTH. ONCE A MONTH - DULoxetine (CYMBALTA) 30 mg capsule Take 1 capsule by mouth once daily. - pantoprazole DR (PROTONIX) 20 mg tablet Take 20 mg by mouth once daily. - blood sugar diagnostic (BLOOD GLUCOSE TEST) test strip Test blood sugar(s) 1 times daily. Dx: Type 2 DM - Controlled E11.9 Insulin: No - Lancets lancets Test blood sugar(s) 1 times daily. Dx: Type 2 DM - Controlled E11.9 Insulin: No - hydrocortisone 2.5 % cream abdomenal areas as needed - Blood Sugar Diagnostic, Drum (ACCU-CHEK COMPACT TEST) Strp TEST BLOOD SUGAR ONCE DAILY. 250.00 - blood-glucose meter, drum-type(ACCU-CHEK COMPACT PLUS CARE KIT) As directed Problem List As Of Date 10/14/2024 Noted Resolved ADJUSTMENT DISORDER WITH DEPRESSED MOOD [F43.21]03/17/2005 ASTHMA UNSPECIFIED [J45.909] 03/17/2005 Mixed hyperlipidemia [E78.2] 03/17/2005 Essential hypertension [I10] 03/17/2005 IMPAIRED FASTING GLUCOSE [R73.01] 03/17/2005 MYALGIA AND MYOSITIS NOS [DXP4101] ESOPHAGEAL REFLUX [K21.9] RHEUMATOID ARTHRITIS [M06.9] 07/12/2006 LOC PRIM OSTEOART-SHLDER [M19.019] 04/01/2005 impingement syndrome right shoulder [M25.819] 04/01/2005 07/04/2005 ROTATOR CUFF SYND NOS [M71.9, M67.919] 04/01/2005 07/04/2005 AFTERCARE NOS [Z51.89] 04/29/2005 07/04/2005 SURGERY FOLLOWUP NOS [Z09] 04/29/2005 07/04/2005 Hereditary and idiopathic peripheral neuropathy*11/17/2005 05/26/2020 SPRAIN OF FOOT NOS [S93.609A] 11/17/2005 SHOULDER REGION DIS NEC [M25.819] 01/17/2006 01/17/2006 impingement syndrome [M25.819 (more content not included)... Normal [facility] CBC panel Auto (Bld)on 09-19 Erythrocyte distribution width (RBC) [Ratio] 12.6 % Normal 11.5-15.0 [facility] Comment on above: Order Comment: Speci men Type: BLOOD SPECIMENOrdering Facility: [facility] Address: [address] [place] [address] Performed By: #### 5 8410-2 ####[facility] [id number] [place] [address] [place] Hematocrit (Bld) [Volume fraction] 40.5 % Normal 36.0-46.0 [facility] Comment on above: Order Comment: Speci men Type: BLOOD SPECIMENOrdering Facility: [facility] Address: [address] [place] [address] Performed By: #### 5 8410-2 ####[facility] [id number] [place] [address] [place] Hemoglobin (Bld) [Mass/Vol] 13.2 g/dL Normal 11.5-15.5 [facility] Comment on above: Order Comment: Speci men Type: BLOOD SPECIMENOrdering Facility: [facility] Address: [address] [place] [address] Performed By: #### 5 8410-2 ####[facility] [id number] [place] [id number] [place] MCH (RBC) [Entitic mass] 29.2 pg Normal 26.0-34.0 [facility] Comment on above: Order Comment: Speci men Type: BLOOD SPECIMENOrdering Facility: [facility] Address: [address] [place] [address] Performed By: #### 5 8410-2 ####[facility] [id number] [place] [address] [place] MCHC (RBC) [Mass/Vol] 32.6 g/dL Normal 30.5-36.0 [facility] Comment on above: Order Comment: Speci men Type: BLOOD SPECIMENOrdering Facility: [facility] Address: [address] [place] [address] Performed By: #### 5 8410-2 ####[facility] [id number] [place] [address] [place] MCV (RBC) [Entitic vol] 89.6 fL Normal 80.0-100.0 [facility] Comment on above: Order Comment: Speci men Type: BLOOD SPECIMENOrdering Facility: [facility] Address: [address] [place] [address] Performed By: #### 5 8410-2 ####[facility] [id number] [place] [address] [place] Nucleated RBC (Bld) [#/Vol] 10*3/uL Normal <0.01 [facility] Comment on above: Order Comment: Speci men Type: BLOOD SPECIMENOrdering Facility: [facility] Address: [address] [place] [address] Performed By: #### 5 8410-2 ####[facility] [id number] [place] [address] [place] Platelet mean volume (Bld) [Entitic vol] 9.9 fL Normal 9.0-12.7 [facility] Comment on above: Order Comment: Speci men Type: BLOOD SPECIMENOrdering Facility: [facility] Address: [address] [place] [address] Performed By: #### 5 8410-2 ####[facility] [id number] [address] [address] [place] Platelets (Bld) [#/Vol] 263 10*3/uL Normal 150-400 [facility] Comment on above: Order Comment: Speci men Type: BLOOD SPECIMENOrdering Facility: [facility] Address: [address] [place] [address] Performed By: #### 5 8410-2 ####[facility] [id number] [place] [address] [place] RBC (Bld) [#/Vol] 4.52 10*6/uL Normal 3.90-5.20 [facility] Comment on above: Order Comment: Speci men Type: BLOOD SPECIMENOrdering Facility: [facility] Address: [address] [place] [address] Performed By: #### 5 8410-2 ####[facility] [id number] [place] [id number] [place] WBC (Bld) [#/Vol] 5.56 10*3/uL Normal 3.70-11.00 [facility] Comment on above: Order Comment: Speci men Type: BLOOD SPECIMENOrdering Facility: [facility] Address: [address] [place] [address] Performed By: #### 5 8410-2 ####[facility] [id number] [address] [address] [place] [facility] [place] Comprehensive metabolic 2000 panelon 09-19-2024 Albumin [Mass/Vol] 3.8 g/dL Low 3.9-4.9 [facility] Comment on above: Order Comment: Speci men Type: BLOOD SPECIMENOrdering Facility: [facility] Address: [address] [place] [address] Performed By: #### 3 016-3, 56671-1, 02523-9 ####[facility] [id number] [address] [place] [address] [place] ALP [Catalytic activity/Vol] 80 U/L Normal 34-123 [facility] Comment on above: Order Comment: Speci men Type: BLOOD SPECIMENOrdering Facility: [facility] Address: [address] [place] [address] Performed By: #### 3 016-3, 42353-5, 06910-4 ####[facility] [id number] [facility] [address], [id number] [place] ALT [Catalytic activity/Vol] 10 U/L Normal 7-38 [facility] Comment on above: Order Comment: Speci men Type: BLOOD SPECIMENOrdering Facility: [facility] Address: [address] [place] [address] Performed By: #### 3 016-3, 30422-7, 23683-6 ####[facility] [id number] [place] [id number] [place] Anion gap [Moles/Vol] 8 mmol/L Normal 8-15 [facility] Comment on above: Order Comment: Speci men Type: BLOOD SPECIMENOrdering Facility: [facility] Address: [address] [place] [address] Performed By: #### 3 016-3, 35231-8, 35316-0 ####[facility] [id number] [place] [id number] [place] AST [Catalytic activity/Vol] 18 U/L Normal 13-35 [facility] Comment on above: Order Comment: Speci men Type: BLOOD SPECIMENOrdering Facility: [facility] Address: [address] [place] [address] Performed By: #### 3 016-3, 87494-6, 30284-3 ####[facility] [id number] [place] [address] [place] Bilirubin [Mass/Vol] 0.8 mg/dL Normal 0.2-1.3 [facility] Comment on above: Order Comment: Speci men Type: BLOOD SPECIMENOrdering Facility: [facility] Address: [address] [place] [address] Performed By: #### 3 016-3, 00197-3, 05726-8 ####[facility] [id number] [place] [address] [place] Calcium [Mass/Vol] 9.5 mg/dL Normal 8.5-10.2 [facility] Comment on above: Order Comment: Speci men Type: BLOOD SPECIMENOrdering Facility: [facility] Address: [address] [place] [address] Performed By: #### 3 016-3, 73908-5, 22796-5 ####[facility] [id number] [place] [address] [place] Chloride [Moles/Vol] 105 mmol/L Normal 98-107 [facility] Comment on above: Order Comment: Speci men Type: BLOOD SPECIMENOrdering Facility: [facility] Address: [address] [place] [address] Performed By: #### 3 016-3, 40134-9, 21468-8 ####[facility] [id number] [place] [id number] [place] CO2 [Moles/Vol] 28 mmol/L Normal 22-30 [facility] Comment on above: Order Comment: Speci men Type: BLOOD SPECIMENOrdering Facility: [facility] Address: [address] [place] [address] Performed By: #### 3 016-3, 40732-8, 70959-7 ####[facility] [id number] [address] [address] [place] Creatinine [Mass/Vol] 0.90 mg/dL Normal 0.58-0.96 [facility] Comment on above: Order Comment: Shane lin Type: BLOOD SPECIMENOrdering Facility: [facility] Address: [address] [place] [address] Performed By: #### 3 016-3, 10895-5, 92666-2 ####[facility] [id number] [place] [address] [place] Creatinine and Glomerular filtration rate.predicted panel (S/P/Bld) 65 mL/min/1.73m??? Normal >=60 [facility] Comment on above: Order Comment: Shane lin Type: BLOOD SPECIMENOrdering Facility: [facility] Address: [address] [place] [address] Result Comment: Sri mated Glomerular Filtration Rate (eGFR) is calculated using the 2020 CKD-EPI creatinine equation. This equation utilizes serum creatinine, sex, and age as parameters. The creatinine assay has traceable calibration to isotope dilution-mass spectrometry. Refer to KDIGO guidelines for clinical interpretation. In patients with unstable renal function, e.g. those with acute kidney injury, the eGFR may not accurately reflect actual GFR. Performed By: #### 3 016-3, 52119-5, 92374-5 ####[facility] [id number] [place] [address] [place] Glucose [Mass/Vol] 90 mg/dL Normal 74-99 [facility] Comment on above: Order Comment: Shane lin Type: BLOOD SPECIMENOrdering Facility: [facility] Address: [address] [place] [address] Result Comment: The [place] Diabetes Association (ADA) provides guidance for cutoff values for fasting glucose and random glucose. The ADA defines fasting as no caloric intake for at least 8 hours. Fasting plasma glucose results between 100 to 125 mg/dL indicate increased risk for diabetes (prediabetes). Fasting plasma glucose results greater than or equal to 126 mg/dL meet the criteria for diagnosis of diabetes. In the absence of unequivocal hyperglycemia, results should be confirmed by repeat testing. In a patient with classic symptoms of hyperglycemia or hyperglycemic crisis, random plasma glucose results greater than or equal to 200 mg/dL meet the criteria for diagnosis of diabetes. Reference: Standards of Medical Care in Diabetes 2016, [place] Diabetes Association. Diabetes Care. 2016.39(Suppl 1). Performed By: #### 3 016-3, 47447-3, 64123-2 ####[facility] [id number] [address] [address] [place] Potassium [Moles/Vol] 5.0 mmol/L Normal 3.7-5.1 [facility] Comment on above: Order Comment: Speci men Type: BLOOD SPECIMENOrdering Facility: [facility] Address: [address] [place] [address] Performed By: #### 3 016-3, 34814-9, 15688-7 ####[facility] [id number] [place] [address] [place] Protein [Mass/Vol] 6.4 g/dL Normal 6.3-8.0 [facility] Comment on above: Order Comment: Speci men Type: BLOOD SPECIMENOrdering Facility: [facility] Address: [address] [place] [address] Performed By: #### 3 016-3, 08358-7, 80243-5 ####[facility] [id number] [place] [address] [place] Sodium [Moles/Vol] 141 mmol/L Normal 136-144 [facility] Comment on above: Order Comment: Speci men Type: BLOOD SPECIMENOrdering Facility: [facility] Address: [address] [place] [id number] Performed By: #### 3 016-3, 33842-8, 41873-9 ####[facility] [id number] [address] [address] [place] Urea nitrogen [Mass/Vol] 14 mg/dL Normal 7-21 [facility] Comment on above: Order Comment: Speci men Type: BLOOD SPECIMENOrdering Facility: [facility] Address: [address] [place] [address] Performed By: #### 3 016-3, 27706-6, 08471-9 ####[facility] [id number] [address] HbA1c (Bld)on 09-19-2024 Average glucose Estimated from glycated hemoglobin (Bld) [Mass/Vol] 105 mg/dL Normal [facility] Comment on above: Order Comment: Speci men Type: BLOOD SPECIMENOrdering Facility: [facility] Address: [address] [place] [address] Result Comment: eAG: (Estimated average glucose) is a calculated value from HgbA1c and is customer retention representative of the average blood glucose level in the last 2-3 month period. Performed By: #### 5 5454-3 ####[facility] [id number] [address] HbA1c (Bld) [Mass fraction] 5.3 % Normal 4.3-5.6 [facility] Comment on above: Order Comment: Speci men Type: BLOOD SPECIMENOrdering Facility: [facility] Address: [address] [place] [address] Result Comment: [place] Diabetes Association guidelines indicate that patients with HgbA1c in the range 5.7-6.4% are at increased risk for development of diabetes, and intervention by lifestyle modification may be beneficial. HgbA1c greater or equal to 6.5% is considered diagnostic of diabetes. Performed By: #### 5 5454-3 ####[facility] [id number] [place] [address] [facility] [place] Lipid 1996 panelon 5 Cholesterol [Mass/Vol] 256 mg/dL High <200 [facility] Comment on above: Order Comment: Shane men Type: BLOOD SPECIMENOrdering Facility: [facility] Address: [address] [place] [address] Result Comment: <200 mg/dL, Desirable 200-239 mg/dL, Borderline high >239 mg/dL, High Performed By: #### 3 016-3, 57715-8, ####[facility] [id number] [address] [place] Cholesterol in HDL [Mass/Vol] 60 mg/dL Normal >39 [facility] Comment on above: Order Comment: Speci men Type: BLOOD SPECIMENOrdering Facility: [facility] Address: [address] [place] [address] Result Comment: 40-5 9 mg/dL, Acceptable >59 mg/dL, High: Negative risk factor for coronary heart disease <40 mg/dL, Low: Positive risk factor for coronary heart disease Performed By: #### 3 016-3, , ####[facility] [id number] [address] STATES [facility] Cholesterol in LDL [Mass/Vol] 176 mg/dL High <100 [facility] Comment on above: Order Comment: Speci men Type: BLOOD SPECIMENOrdering Facility: [facility] Address: [address] [place] [address] Result Comment: <100 mg/dL, Optimal 100-129 mg/dL, Near optimal/above optimal 130-159 mg/dL, Borderline high 160-189 mg/dL, High >189 mg/dL, Very high Secondary prevention optimal LDL Cholesterol levels are recommended to be <70 mg/dL LDL cholesterol is calculated using the Morrissey-NIH equation. Performed By: #### 3 016-3, 96991-5, ####[facility] [id number] [place] [address] [place] Cholesterol in LDL/Cholesterol in HDL [Mass ratio] 2.93 {ratio} High <2.54 [facility] Comment on above: Order Comment: Speci men Type: BLOOD SPECIMENOrdering Facility: [facility] Address: [address] [place] [address] Result Comment: Refe rence: 1. National Cholesterol Education Program ATP III Guideline At-A-Glance Quick Desk Reference: National Heart, Lung, and Blood [place]. National Institutes of Health. 2001: NIH Publication No. 01-3305. 2. An International Atherosclerosis Society position paper: global recommendations for the management of dyslipidemia: executive summary, Atherosclerosis. 2014: 232(2):410-413. Performed By: #### 3 016-3, 83054-9, 74105-4 ####[facility] [id number] [address] [address] [place] Cholesterol in VLDL [Mass/Vol] 23 mg/dL Normal <30 [facility] Comment on above: Order Comment: Speci men Type: BLOOD SPECIMENOrdering Facility: [facility] Address: [address] [place] [address] Performed By: #### 3 016-3, , ####[facility] [id number] [place] [address] [place] Cholesterol non HDL [Mass/Vol] 196 mg/dL High <130 [facility] Comment on above: Order Comment: Speci men Type: BLOOD SPECIMENOrdering Facility: [facility] Address: [address] [place] [address] Result Comment: <130 mg/dL, Optimal 130-159 mg/dL, Near optimal/above optimal 160-189 mg/dL, Borderline high 190-219 mg/dL, High >219 mg/dL, Very high Secondary prevention optimal non HDL Cholesterol levels are recommended to be <100 mg/dL Performed By: #### 3 016-3, , 65311-1 ####[facility] [id number] [facility] [address] [place] [address] [place] Cholesterol.total/Cho lesterol in HDL [Mass ratio] 4.27 {ratio} Normal <5.10 [facility] Comment on above: Order Comment: Speci men Type: BLOOD SPECIMENOrdering Facility: [facility] Address: [address] [place] [address] Performed By: #### 3 016-3, 29049-5, 13761-4 ####[facility] [id number] [place] [id number] [place] FASTING TIME 12 hrs Normal [facility] Comment on above: Order Comment: Speci men Type: BLOOD SPECIMENOrdering Facility: [facility] Address: [address] [place] [address] Performed By: #### 3 016-3, 82444-4, 19112-1 ####[facility] [id number] [address] [place] Triglyceride [Mass/Vol] 115 mg/dL Normal <150 [facility] Comment on above: Order Comment: Speci men Type: BLOOD SPECIMENOrdering Facility: [facility] Address: [address] [place] [address] Result Comment: <150 mg/dL, Normal 150-199 mg/dL, Borderline high 200-499 mg/dL, High >499 mg/dL, Very high Performed By: #### 3 016-3, 08973-2, 24258-8 ####[facility] [id number] [place] [address] [place] TSH SerPl-aCncon 09-19-2024 TSH Qn 2.490 m[IU]/L Normal 0.270-4.200 [facility] Comment on above: Order Comment: Speci men Type: BLOOD SPECIMENOrdering Facility: [facility] Address: [address] [place] [address] Performed By: #### 3 016-3, 65450-7, 15622-9 ####[facility] [id number] [place] [id number] [place] CNOVon 09-16-2024 CNOV Office Visit (ORTHWS ) GABBY GUILLEN ([id number]) 1945 F T Date Time Provider Department 09/16/24 10:30 AM GRETCHEN GARCIA During your visit today, we recorded the following information about you: Darlene Florian MA 09/16/2024 10:46 AM Signed AMB ROOMING INTAKE FLOWSHEET DATA Pain Pain Level: 4 Pain Location: Hand-Right Description: Aching, Sharp Duration Amount of Time: (post op) Frequency: Intermittent Intervention/Comfort measure: Medication Patient is 1 week 4 days post op right trigger thumb release. She is still having some pain. Using Tylenol and ibuprofen as needed. Gretchen Garcia PA-C 09/16/2024 10:46 AM Signed Gretchen Garcia PA-C Department of Orthopaedics Orthopaedics [address] [facility] [address] Dept: [phone] Dept September 16, 2024 CHIEF COMPLAINT: Established Patient and Post Op of the Right Hand. ASSESSMENT: M65.311 Trigger thumb of right hand (primary encounter diagnosis) SUMMARY/PLAN: Patient presents 1 week and 4 days status post right trigger thumb release. She is doing well, having some intermittent 4 out of 10 aching pain mainly at the IP joint. We discussed proper hand washing, no soaking of the operative hand. No heavy lifting, pushing or pulling with the operative hand, encourage gentle motion. We discussed scar massage. Follow up as planned. Exam: Incision site is well approximated without erythema or drainage. Mild but appropriate edema without ecchymosis. No locking or catching of the digits. Neurologically intact. Imaging: Deferred today Ms. Gabby Guillen was advised as to contrast therapies and/or to take analgesics/anti-inflammator ies as needed and all contraindications were reviewed. Supporting Information Below: Medications: Current Outpatient Medications Medication Sig carvedilol (COREG) 3.125 mg tablet Take 1 tablet by mouth two times a day with meals. losartan (COZAAR) 100 mg tablet Take 1 tablet by mouth once daily. DULoxetine (CYMBALTA) 30 mg capsule Take 1 capsule by mouth once daily. pantoprazole DR (PROTONIX) 20 mg tablet Take 20 mg by mouth once daily. hydrocortisone 2.5 % cream abdomenal areas as needed REPATHA PUSHTRONEX 420 mg/3.5 mL wearable injector INJECT 3.5 ML BY INJECTION(UNSPECIFIED PARENTERAL ROUTES) ROUTE ONCE EVERY MONTH. ONCE A MONTH (Patient not taking: No sig reported) blood sugar diagnostic (BLOOD GLUCOSE TEST) test strip Test blood sugar(s) 1 times daily. Dx: Type 2 DM - Controlled E11.9 Insulin: No Lancets lancets Test blood sugar(s) 1 times daily. Dx: Type 2 DM - Controlled E11.9 Insulin: No Blood Sugar Diagnostic, Drum (ACCU-CHEK COMPACT TEST) Strp TEST BLOOD SUGAR ONCE DAILY. 250.00 blood-glucose meter, drum-type(ACCU-CHEK COMPACT PLUS CARE KIT) As directed No current facility-administered medications for this visit. Allergies: Amlodipine, Biaxin [Clarithromycin], Metformin, Spironolactone, and Jlhhtva-Tbm-Ixg Reductase Inhibitors This note was partially generated using [employer] voice recognition system, and there may be some incorrect words, spellings, and punctuation that were not noted in checking the note before saving. Gretchen Garcia PA-C Referring Provider: KURT CARDONA [[id number]] Allergies As of Date: 09/16/2024 Noted Allergy Reaction AMLODIPINE 09/17/2020 7 - Swelling BIAXIN (CLARITHROMYCIN) 08/27/2007 2 - Rash METFORMIN 11/19/2009 6 - Diarrhea Comments: ER formulation caused symptoms at 1 tablet per day SPIRONOLACTONE 10/11/2022 14 - Other: See Comments Comments: lightheaded and dizzy KCFILGZ-[id number]-[id number] REDUCTASE INHIBIT*08/08/2012 5 - Intolerance Comments: myalgia and diarrhea Date Reviewed: 09/16/2024 Reviewed by: Darlene Florian MA - Fully Assessed Reason for Visit: Established Patient [175] Post Op [174] Primary Visit Diagnosis:Trigger thumb of right hand [M65.311] Prescriptions as of 09/16/2024 - carvedilol (COREG) 3.125 mg tablet Take 1 tablet by mouth two times a day with meals. - losartan (COZAAR) 100 mg tablet Take 1 tablet by mouth once daily. - REPATHA PUSHTRONEX 420 mg/3.5 mL wearable injector INJECT 3.5 ML BY INJECTION(UNSPECIFIED PARENTERAL ROUTES) ROUTE ONCE EVERY MONTH. ONCE A MONTH - DULoxetine (CYMBALTA) 30 mg capsule Take 1 capsule by mouth once daily. - pantoprazole DR (PROTONIX) 20 mg tablet Take 20 mg by mouth once daily. - blood sugar diagnostic (BLOOD GLUCOSE TEST) test strip Test blood sugar(s) 1 times daily. Dx: Type 2 DM - Controlled E11.9 Insulin: No - Lancets lancets Test blood sugar(s) 1 times daily. Dx: Type 2 DM - Controlled E11.9 Insulin: No - hydrocortisone 2.5 % cream abdomenal areas as needed - Blood Sugar Diagnostic, Drum (ACCU-CHEK COMPACT TEST) Strp TEST BLOOD SUGAR ONCE DAILY. 250.00 - blood-glucose meter, drum-type(ACCU-CHEK COMPACT PLUS CARE KIT) As directed Proble (more content not included)... Normal [facility] OPERATIVE NOon 09-05-2024 OPERATIVE NO HNO ID: [id number] Author: KURT CARDONA MD Service: Orthopaedic Surgery Author Type: Physician Type: Operative Report Filed: 09/05/2024 14:04 Note Text: OPERATIVE/PROCEDURE REPORT LOG ID: [id number] Surgery/Procedure Date: 09/05/2024 Incision/Procedure Start Time: 1:50 PM Incision Close/Procedure End Time: 1:58 PM Surgeon(s)/Proceduralist(s) and Supervisor [facility](s): Surgeons and Role: * Kurt Cardona MD - Primary No Additional Staff Procedure(s): right thumb trigger release. Anesthesia: Local. Procedure Details: On 09/05/2024, the patient was clearly identified in the preoperative area and marked accordingly on the right thumb by myself. After a chloroprep swab, Local anesthetic was provided at the base of the thumb near the A1 monet site for a total of 2 mL of 1% lidocaine with Epinephrine. Patient was taken to the operative suite and placed in the supine position with an arm board on the right. All other bony landmarks were appropriately padded in standard fashion. The right upper extremity was sterilely prepped and draped in standard fashion. An appropriate time-out was conducted and all in the room were in agreement, signed consent form was on the chart. An incision was made over the A1 monet of the thumb. This was done superficially with a 15 blade and blunt dissection was taken down longitudinally to the flexor apparatus. The digital nerves were clearly identified and protected throughout the case with Crile retractors. Under direct visualization, I divided the A1 monet site of the thumb with a 15 blade. There was obvious tenosynovitis and a slight synovectomy was made with Littler scissors. I used a Ragnell retractor to pull the tendon up through the wound confirming its complete release. The wound was copiously irrigated. Hemostasis was observed with bipolar electrocautery. Closure was done with 3-0 Nylon sutures in horizontal mattress fashion for a total of 2. Xeroform gauze, an eye patch, light Janett wrap and Coban was used for final bandage. There were no complications during the procedure. Patient was safely awoken and transferred to the Postanesthetic Care Unit in stable condition. Pre-Op/Pre-Procedure Diagnosis: right thumb trigger finger Post-Op/Post-Procedure Diagnosis: right thumb trigger finger. Estimated Blood Loss: None Specimens: None Implantable Devices: None Drains: None Complications: None The primary surgeon/proceduralist performed the entire procedure. SIGNATURE: Kurt Cardona MD PATIENT NAME: Gabby Guillen DATE: September 05, 2024 TIME: 2:03 PM PAGER/CONTACT #: Normal [facility] No Panel Informationon 08-17 IMPRESSION: Degenera tive changes. No acute abnormality Intern Retail: [facility] Transcribe Date/Time: Aug 17 2024 2:13P Dictated by : BETO NGUYEN MD This examination was interpreted and the report reviewed and electronically signed by: BETO NGUYEN MD on Aug 17 2024 2:15PM [facility] No Panel InformationOrdered By: Cc Provider on 08-17-2024 [facility] XR Knee - bilateral 4 Viewso n 08-17-2024 * * *Final Report* * * DATE OF EXAM: Aug 13 2024 11:29AM ALPESH 5618 - XR KNEE 4V AP/PA/LAT/MERCH KAVON / PROCEDURE REASON: M17.0-Primary osteoarthritis of both knees * * * * Physician Interpretation * * * * PROCEDURE: Right hand, bilateral knees and pelvis INDICATION: Pain TECHNIQUE: XR HAND 3V PA/LAT/OBL RT, XR KNEE 4V AP/PA/LAT/MERCH KAVON, XR PELVIS 1V AP COMPARISON: Right thumb 07/02/2024, FINDINGS: Right hand: Osteopenia. Mild to moderate osteoarthritic change in all PIP and DIP joints, most prominent in the 3rd DIP joint. No erosions or focal soft tissue swelling. No fracture or dislocation. Bilateral knees: Moderate to advanced medial joint compartment spur formation with mild marginal spur formation, left slightly more advanced than right. No fracture or dislocation. Trace left joint effusion. Osteopenia. Pelvis: Moderate bilateral hip osteoarthrosis. Sacroiliac joints and symphysis pubis are maintained. No fracture or dislocation. [facility] Provider, [facility] - 08/17/2024 * * *Final Report* * * DATE OF EXAM: Aug 13 2024 11:29AM ALPESH 5618 - XR KNEE 4V AP/PA/LAT/MERCH KAVON / PROCEDURE REASON: M17.0-Primary osteoarthritis of both knees * * * * Physician Interpretation * * * * PROCEDURE: Right hand, bilateral knees and pelvis INDICATION: Pain TECHNIQUE: XR HAND 3V PA/LAT/OBL RT, XR KNEE 4V AP/PA/LAT/MERCH KAVON, XR PELVIS 1V AP COMPARISON: Right thumb 07/02/2024, FINDINGS: Right hand: Osteopenia. Mild to moderate osteoarthritic change in all PIP and DIP joints, most prominent in the 3rd DIP joint. No erosions or focal soft tissue swelling. No fracture or dislocation. Bilateral knees: Moderate to advanced medial joint compartment spur formation with mild marginal spur formation, left slightly more advanced than right. No fracture or dislocation. Trace left joint effusion. Osteopenia. Pelvis: Moderate bilateral hip osteoarthrosis. Sacroiliac joints and symphysis pubis are maintained. No fracture or dislocation. IMPRESSION IMPRESSION: Degenerative changes. No acute abnormality Intern Retail: [facility] Transcribe Date/Time: Aug 17 2024 2:13P Dictated by : BETO NGUYEN MD This examination was interpreted and the report reviewed and electronically signed by: BETO NGUYEN MD on Aug 17 2024 2:15PM [facility] XR Pelvis APon 08-17-2024 * * *Final Report* * * DATE OF EXAM: Aug 13 2024 11:29AM ALPESH 5239 - XR PELVIS 1V AP / PROCEDURE REASON: R10.30-Inguinal pain, unspecified laterality * * * * Physician Interpretation * * * * PROCEDURE: Right hand, bilateral knees and pelvis INDICATION: Pain TECHNIQUE: XR HAND 3V PA/LAT/OBL RT, XR KNEE 4V AP/PA/LAT/MERCH KAVON, XR PELVIS 1V AP COMPARISON: Right thumb 07/02/2024, FINDINGS: Right hand: Osteopenia. Mild to moderate osteoarthritic change in all PIP and DIP joints, most prominent in the 3rd DIP joint. No erosions or focal soft tissue swelling. No fracture or dislocation. Bilateral knees: Moderate to advanced medial joint compartment spur formation with mild marginal spur formation, left slightly more advanced than right. No fracture or dislocation. Trace left joint effusion. Osteopenia. Pelvis: Moderate bilateral hip osteoarthrosis. Sacroiliac joints and symphysis pubis are maintained. No fracture or dislocation. [facility] Provider, [facility] - 08/17/2024 * * *Final Report* * * DATE OF EXAM: Aug 13 2024 11:29AM O 5239 - XR PELVIS 1V AP / PROCEDURE REASON: R10.30-Inguinal pain, unspecified laterality * * * * Physician Interpretation * * * * PROCEDURE: Right hand, bilateral knees and pelvis INDICATION: Pain TECHNIQUE: XR HAND 3V PA/LAT/OBL RT, XR KNEE 4V AP/PA/LAT/MERCH KAVON, XR PELVIS 1V AP COMPARISON: Right thumb 07/02/2024, FINDINGS: Right hand: Osteopenia. Mild to moderate osteoarthritic change in all PIP and DIP joints, most prominent in the 3rd DIP joint. No erosions or focal soft tissue swelling. No fracture or dislocation. Bilateral knees: Moderate to advanced medial joint compartment spur formation with mild marginal spur formation, left slightly more advanced than right. No fracture or dislocation. Trace left joint effusion. Osteopenia. Pelvis: Moderate bilateral hip osteoarthrosis. Sacroiliac joints and symphysis pubis are maintained. No fracture or dislocation. IMPRESSION IMPRESSION: Degenerative changes. No acute abnormality Intern Retail: [facility] Transcribe Date/Time: Aug 17 2024 2:13P Dictated by : BETO NGUYEN MD This examination was interpreted and the report reviewed and electronically signed by: BETO NGUYEN MD on Aug 17 2024 2:15PM EST [facility] CNCOon 08-15-2024 CNCO Letter Text Normal [facility] CNOVon 08-13-2024 CNOV Office Visit (ORMDNA ) GABBY GUILLEN ([id number]) 1945 F [facility] Date Time Provider Department 08/13/24 11:00 AM GRETCHEN GARCIA During your visit today, we recorded the following information about you: Gretchen Garcia PA-C 08/19/2024 8:06 AM Signed Gretchen Garcia PA-C Department of Orthopaedics Orth[facility] [address] [address] Dept: [phone] August 13, 2024 CHIEF COMPLAINT: New and Pain of the Left Thumb Ms. Gabby Guillen is a 79 year old female who presents with stiffness in her right thumb which started bothering her about 5 months ago. She reports that she was unable to bend or straighten the thumb. Symptoms started around the holidays, she tells me she was doing a lot of crocheting and sewing projects. Thumb is starting to loosen up and she is able to slightly bend it now but complains of 4 out of 10 aching, burning, stiffness in the digit. Was having some locking and catching when symptoms started. She has had previous trigger fingers in the past which have resolved on their own. She is a diabetic, her blood sugars are well-controlled on Ozempic, she reports a recent 75 pound weight loss. She is also complaining of pain in both of her knees and pain in her groin. She is trying to be more active, has been outside walking, the increased activity exacerbates her pain. She tells me that she has known psoriatic arthritis. She reports having a right knee arthroscopy with medial meniscectomy at the [facility]. ASSESSMENT: M65.311 Trigger thumb of right hand (primary encounter diagnosis) M17.0 Primary osteoarthritis of both knees PLAN: The patient has a right trigger thumb, we discussed her options including a corticosteroid injection and splinting and trigger thumb release. Patient would like to pursue right trigger thumb release under local anesthesia, she is preferring the [place] location. She would also like to be evaluated for her knee pain, we discussed getting some x-rays today for further evaluation, I will put her x-ray results on [facility] for her review. Happy to see her back at the [place] location to discuss treatment options. Will continue to monitor patient for Primary osteoarthritis of both knees Trigger thumb of right hand (primary encounter diagnosis), patient to schedule visit as per follow up discussed. Ms. Gabby Guillen was advised as to contrast therapies and/or to take analgesics/anti-inflammator ies as needed and all contraindications were reviewed. OBJECTIVE: Ms. Gabby Guillen is a pleasant 79 year old in no apparent distress. Gen:There were no vitals taken for this visit. nl development, non obese, no deformities ENT: Normocephalic, normal hearing, moist mucosa CV: Pulses:Radial= 2+ and symmetric, capillary refill < 2 secs, no peripheral edema/varicosities Skin: no rash, bruising or lesions. Good turgor. Psych: cooperative and appropriate, alert and oriented x 3, good mood and affect. Musculoskeletal: Right thumb with a tender palpable nodule at the A1 monet site, digit is clicking with flexion and extension but not locking, subjective stiffness at the IP joint. Some degenerative changes at the MCP and CMC joint, minimal tenderness palpation over the basal joint, none painful grind testing. No locking or catching of any of the other digits on the right hand. Sensation is intact to the radial and ulnar nerve distributions Imaging: IMPRESSION: Degenerative changes. No acute abnormality Intern Retail: [employer] Transcribe Date/Time: Aug 17 2024 2:13P Dictated by : BETO NGUYEN MD This examination was interpreted and the report reviewed and electronically signed by: BETO NGUYEN MD on Aug 17 2024 2:15PM EST Results-Findings * * *Final Report* * * DATE OF EXAM: Aug 13 2024 10:18AM ALPESH 5346 - XR HAND 3V PA/LAT/OBL RT / PROCEDURE REASON: M79.641-Pain of right hand * * * * Physician Interpretation * * * * PROCEDURE: Right hand, bilateral knees and pelvis INDICATION: Pain TECHNIQUE: XR HAND 3V PA/LAT/OBL RT, XR KNEE 4V AP/PA/LAT/MERCH KAVON, XR PELVIS 1V AP COMPARISON: Right thumb 07/02/2024, FINDINGS: Right hand: Osteopenia. Mild to moderate osteoarthritic change in all PIP and DIP joints, most prominent in the 3rd DIP joint. No erosions or focal soft tissue swelling. No fracture or dislocation. Bilateral knees: Moderate to advanced medial joint compartment spur formation with mild marginal spur formation, left slightly more advanced than right. No fracture or dislocation. Trace left joint effusion. Osteopenia. Pelvis: Moderate bilateral hip osteoarthrosis. Sacroiliac joints and symphysis pubis are maintained. No fracture or dislocation. Supporting Subjective Information Below: Past Surgical History: PAST SURGICAL HISTORY Procedure Laterality Date ABDOMINAL SURGERY HX A (more content not included)... Normal [facility] CNPNon 08-13-2024 CNPN Telephone (ORMDNA) GABBY GUILLEN ([id number]) 1945 F [facility] Date Time Provider Department 08/13/24 GRETCHEN GARCIA During your visit today, we recorded the following information about you: Gretchen Garcia PA-C 08/13/2024 11:25 AM Signed Patient seen in the office today, would like to schedule right trigger thumb release under local anesthesia. Would like to schedule in [facility], can we assist her with scheduling? Darlene Florian MA 08/15/2024 3:38 PM Signed I called and spoke with the patient. She will be scheduled on 09/05/2024 at [facility]. Darlene Florian MA 08/15/2024 4:02 PM Signed Surgical request completed. Post op appointments have been scheduled and mailed to the patient. Darlene Florian MA 08/15/2024 4:02 PM Signed Surgery has been scheduled as requested. Allergies As of Date: 08/13/2024 Noted Allergy Reaction AMLODIPINE 09/17/2020 7 - Swelling BIAXIN (CLARITHROMYCIN) 08/27/2007 2 - Rash METFORMIN 11/19/2009 6 - Diarrhea Comments: ER formulation caused symptoms at 1 tablet per day SPIRONOLACTONE 10/11/2022 14 - Other: See Comments Comments: lightheaded and dizzy [id number]-GWE-QUG REDUCTASE INHIBIT*08/08/2012 5 - Intolerance Comments: myalgia and diarrhea Date Reviewed: 08/13/2024 Reviewed by: Cherelle Fernandes MA - Fully Assessed Reason for Visit: Schedule Surgery [1330] Primary Visit Diagnosis:Trigger thumb of right hand [M65.311] Order(s):SURGICAL REQUEST - ELECTIVE (12/2019) [[id number]] Order #: [id number]: 1 Prescriptions as of 08/15/2024 - carvedilol (COREG) 3.125 mg tablet Take 1 tablet by mouth two times a day with meals. - losartan (COZAAR) 100 mg tablet Take 1 tablet by mouth once daily. - REPATHA PUSHTRONEX 420 mg/3.5 mL wearable injector INJECT 3.5 ML BY INJECTION(UNSPECIFIED PARENTERAL ROUTES) ROUTE ONCE EVERY MONTH. ONCE A MONTH - semaglutide (OZEMPIC) 0.25 mg or 0.5 mg (2 mg/3 mL) pen Inject 0.25 mg subcutaneously one time a week. - DULoxetine (CYMBALTA) 30 mg capsule Take 1 capsule by mouth once daily. - pantoprazole DR (PROTONIX) 20 mg tablet Take 20 mg by mouth once daily. - blood sugar diagnostic (BLOOD GLUCOSE TEST) test strip Test blood sugar(s) 1 times daily. Dx: Type 2 DM - Controlled E11.9 Insulin: No - Lancets lancets Test blood sugar(s) 1 times daily. Dx: Type 2 DM - Controlled E11.9 Insulin: No - hydrocortisone 2.5 % cream abdomenal areas as needed - Blood Sugar Diagnostic, Drum (ACCU-CHEK COMPACT TEST) Strp TEST BLOOD SUGAR ONCE DAILY. 250.00 - blood-glucose meter, drum-type(ACCU-CHEK COMPACT PLUS CARE KIT) As directed Problem List As Of Date 08/13/2024 Noted Resolved ADJUSTMENT DISORDER WITH DEPRESSED MOOD [F43.21]03/17/2005 ASTHMA UNSPECIFIED [J45.909] 03/17/2005 Mixed hyperlipidemia [E78.2] 03/17/2005 Essential hypertension [I10] 03/17/2005 IMPAIRED FASTING GLUCOSE [R73.01] 03/17/2005 MYALGIA AND MYOSITIS NOS [SQH2988] ESOPHAGEAL REFLUX [K21.9] RHEUMATOID ARTHRITIS [M06.9] 07/12/2006 LOC PRIM OSTEOART-SHLDER [M19.019] 04/01/2005 impingement syndrome right shoulder [M25.819] 04/01/2005 07/04/2005 ROTATOR CUFF SYND NOS [M71.9, M67.919] 04/01/2005 07/04/2005 AFTERCARE NOS [Z51.89] 04/29/2005 07/04/2005 SURGERY FOLLOWUP NOS [Z09] 04/29/2005 07/04/2005 Hereditary and idiopathic peripheral neuropathy*11/17/2005 05/26/2020 SPRAIN OF FOOT NOS [S93.609A] 11/17/2005 SHOULDER REGION DIS NEC [M25.819] 01/17/2006 01/17/2006 impingement syndrome [M25.819] 01/17/2006 CHRONIC RHINITIS [J31.0] 07/12/2006 Unspecified sleep apnea [G47.30] 09/11/2006 IMPAIRED FASTING GLUCOSE [R73.09] 08/17/2007 FEMALE GENITAL SYMPTOMS NOS [N94.9] 08/27/2007 ABDOMINAL PAIN LLQ [R10.32] 08/27/2007 ABDOMINAL PAIN RLQ [R10.31] 08/27/2007 FEMALE STRESS INCONTINENCE [N39.3] 08/27/2007 URGE INCONTINENCE [N39.41] 08/27/2007 MASTODYNIA [N64.4] 08/27/2007 IRRITABLE COLON [K58.9] 08/27/2007 VIRAL WARTS NOS [B07.9] 08/29/2008 Generalized osteoarthrosis, unspecified site [M*08/29/2008 04/05/2022 PAIN IN LIMB [M79.609] 08/29/2008 ACQ DEFORMITY OF TOE NEC [M20.5X9] 09/12/2008 Uncontrolled type 2 diabetes mellitus with hype*04/01/2010 06/09/2020 Unspecified constipation [K59.00] 09/10/2010 Rectocele [N81.6] 09/10/2010 Folliculitis [L73.9] 09/15/2010 Acne vulgaris [L70.0] 09/15/2010 Other seborrheic dermatitis [L21.8] 09/15/2010 Other seborrheic keratosis [L82.1] 09/15/2010 Stucco keratoses [L82.1] 09/15/2010 Eczema intertrigo [L30.4] 09/15/2010 Xerosis cutis [L85.3] 09/15/2010 Actinic Damage//Sun-damaged skin [L57.8] 09/15/2010 Solar lentigines [L81.4] 09/15/2010 Telangiectasia [I78.1] 09/15/2010 DM (diabetes mellitus) (HCC) [E11.9] 09/28/2010 06/09/2020 Pruritus - disorder 02/23/2011 Cutaneous skin tags [L91.8] 02/23/2011 Plantar fascial fibromatosis [M72.2] 06/13/2011 Capsulitis [M77.9] 02/09/2012 Screening for cardiovasc (more content not included)... Normal [facility] No Panel Informationon 08-13 Radiology Study observation (narrative) [facility] XR HAND 3V PA/LAT/OBL RTon 0 08-13-2024 XR HAND 3V PA/LAT/OBL RT * * *Final Report* * * DATE OF EXAM: Aug 13 2024 10:18AM ALPESH 5346 - XR HAND 3V PA/LAT/OBL RT / PROCEDURE REASON: M79.641-Pain of right hand * * * * Physician Interpretation * * * * PROCEDURE: Right hand, bilateral knees and pelvis INDICATION: Pain TECHNIQUE: XR HAND 3V PA/LAT/OBL RT, XR KNEE 4V AP/PA/LAT/MERCH KAVON, XR PELVIS 1V AP COMPARISON: Right thumb 07/02/2024, FINDINGS: Right hand: Osteopenia. Mild to moderate osteoarthritic change in all PIP and DIP joints, most prominent in the 3rd DIP joint. No erosions or focal soft tissue swelling. No fracture or dislocation. Bilateral knees: Moderate to advanced medial joint compartment spur formation with mild marginal spur formation, left slightly more advanced than right. No fracture or dislocation. Trace left joint effusion. Osteopenia. Pelvis: Moderate bilateral hip osteoarthrosis. Sacroiliac joints and symphysis pubis are maintained. No fracture or dislocation. IMPRESSION: Degenerative changes. No acute abnormality Intern Retail: [facility] Transcribe Date/Time: Aug 17 2024 2:13P Dictated by : BETO NGUYEN MD This examination was interpreted and the report reviewed and electronically signed by: BETO NGUYEN MD on Aug 17 2024 2:15PM EST [id number] [facility] XR KNEE 4V AP/PA/LAT/MERCH B LAon 08-13-2024 XR KNEE 4V AP/PA/LAT/MERCH KAVON * * *Final Report* * * DATE OF EXAM: Aug 13 2024 11:29AM ALPESH 5618 - XR KNEE 4V AP/PA/LAT/MERCH KAVON / PROCEDURE REASON: M17.0-Primary osteoarthritis of both knees * * * * Physician Interpretation * * * * PROCEDURE: Right hand, bilateral knees and pelvis INDICATION: Pain TECHNIQUE: XR HAND 3V PA/LAT/OBL RT, XR KNEE 4V AP/PA/LAT/MERCH KAVON, XR PELVIS 1V AP COMPARISON: Right thumb 07/02/2024, FINDINGS: Right hand: Osteopenia. Mild to moderate osteoarthritic change in all PIP and DIP joints, most prominent in the 3rd DIP joint. No erosions or focal soft tissue swelling. No fracture or dislocation. Bilateral knees: Moderate to advanced medial joint compartment spur formation with mild marginal spur formation, left slightly more advanced than right. No fracture or dislocation. Trace left joint effusion. Osteopenia. Pelvis: Moderate bilateral hip osteoarthrosis. Sacroiliac joints and symphysis pubis are maintained. No fracture or dislocation. IMPRESSION: Degenerative changes. No acute abnormality Intern Retail: [facility] Transcribe Date/Time: Aug 17 2024 2:13P Dictated by : BETO NGUYEN MD This examination was interpreted and the report reviewed and electronically signed by: BETO NGUYEN MD on Aug 17 2024 2:15PM EST [id number] [facility] XR PELVIS 1V APon 08-13-2024 XR PELVIS 1V AP * * *Final Report* * * DATE OF EXAM: Aug 13 2024 11:29AM ALPESH 5239 - XR PELVIS 1V AP / PROCEDURE REASON: R10.30-Inguinal pain, unspecified laterality * * * * Physician Interpretation * * * * PROCEDURE: Right hand, bilateral knees and pelvis INDICATION: Pain TECHNIQUE: XR HAND 3V PA/LAT/OBL RT, XR KNEE 4V AP/PA/LAT/MERCH KAVON, XR PELVIS 1V AP COMPARISON: Right thumb 07/02/2024, FINDINGS: Right hand: Osteopenia. Mild to moderate osteoarthritic change in all PIP and DIP joints, most prominent in the 3rd DIP joint. No erosions or focal soft tissue swelling. No fracture or dislocation. Bilateral knees: Moderate to advanced medial joint compartment spur formation with mild marginal spur formation, left slightly more advanced than right. No fracture or dislocation. Trace left joint effusion. Osteopenia. Pelvis: Moderate bilateral hip osteoarthrosis. Sacroiliac joints and symphysis pubis are maintained. No fracture or dislocation. IMPRESSION: Degenerative changes. No acute abnormality Intern Retail: PSCB Transcribe Date/Time: Aug 17 2024 2:13P Dictated by : BETO NGUYEN MD This examination was interpreted and the report reviewed and electronically signed by: BETO NGUYEN MD on Aug 17 2024 2:15PM EST [id number] 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 Patient denies counseling. Cherelle Lawson MA Allergies As of Date: 07/10/2024 Noted Allergy Reaction AMLODIPINE 09/17/2020 7 - Swelling BIAXIN (CLARITHROMYCIN) 08/27/2007 2 - Rash METFORMIN 11/19/2009 6 - Diarrhea Comments: ER formulation caused symptoms at 1 tablet per day SPIRONOLACTONE 10/11/2022 14 - Other: See Comments Comments: lightheaded and dizzy IVCUFOA-UPU-AVI REDUCTASE INHIBIT*08/08/2012 5 - Intolerance Comments: myalgia and diarrhea Date Reviewed: 07/02/2024 Reviewed by: Vikki Carrizales MA - Fully Assessed Reason for Visit: Orders [681] Cmt: Vaccsys patient assistance Prescriptions as of 07/15/2024 - carvedilol (COREG) 3.125 mg tablet Take 1 tablet by mouth two times a day with meals. - losartan (COZAAR) 100 mg tablet Take 1 tablet by mouth once daily. - REPATHA PUSHTRONEX 420 mg/3.5 mL wearable injector INJECT 3.5 ML BY INJECTION(UNSPECIFIED PARENTERAL ROUTES) ROUTE ONCE EVERY MONTH. ONCE A MONTH - semaglutide (OZEMPIC) 0.25 mg or 0.5 mg (2 mg/3 mL) pen Inject 0.25 mg subcutaneously one time a week. - DULoxetine (CYMBALTA) 30 mg capsule Take 1 capsule by mouth once daily. - pantoprazole DR (PROTONIX) 20 mg tablet Take 20 mg by mouth once daily. - blood sugar diagnostic (BLOOD GLUCOSE TEST) test strip Test blood sugar(s) 1 times daily. Dx: Type 2 DM - Controlled E11.9 Insulin: No - Lancets lancets Test blood sugar(s) 1 times daily. Dx: Type 2 DM - Controlled E11.9 Insulin: No - hydrocortisone 2.5 % cream abdomenal areas as needed - Blood Sugar Diagnostic, Drum (ACCU-CHEK COMPACT TEST) Strp TEST BLOOD SUGAR ONCE DAILY. 250.00 - blood-glucose meter, drum-type(ACCU-CHEK COMPACT PLUS CARE KIT) As directed Problem List As Of Date 07/10/2024 Noted Resolved ADJUSTMENT DISORDER WITH DEPRESSED MOOD [F43.21]03/17/2005 ASTHMA UNSPECIFIED [J45.909] 03/17/2005 Mixed hyperlipidemia [E78.2] 03/17/2005 Essential hypertension [I10] 03/17/2005 IMPAIRED FASTING GLUCOSE [R73.01] 03/17/2005 MYALGIA AND MYOSITIS NOS [BPN5933] ESOPHAGEAL REFLUX [K21.9] RHEUMATOID ARTHRITIS [M06.9] 07/12/2006 LOC PRIM OSTEOART-SHLDER [M19.019] 04/01/2005 impingement syndrome right shoulder [M25.819] 04/01/2005 07/04/2005 ROTATOR CUFF SYND NOS [M71.9, M67.919] 04/01/2005 07/04/2005 AFTERCARE NOS [Z51.89] 04/29/2005 07/04/2005 SURGERY FOLLOWUP NOS [Z09] 04/29/2005 07/04/2005 Hereditary and idiopathic peripheral neuropathy*11/17/2005 05/26/2020 SPRAIN OF FOOT NOS [S93.609A] 11/17/2005 SHOULDER REGION DIS NEC [M25.819] 01/17/2006 01/17/2006 impingement syndrome [M25.819] 01/17/2006 CHRONIC RHINITIS [J31.0] 07/12/2006 Unspecified sleep apnea [G47.30] 09/11/2006 IMPAIRED FASTING GLUCOSE [R73.09] 08/17/2007 FEMALE GENITAL SYMPTOMS NOS [N94.9] 08/27/2007 ABDOMINAL PAIN LLQ [R10.32] 08/27/2007 ABDOMINAL PAIN RLQ [R10.31] 08/27/2007 FEMALE STRESS INCONTINENCE [N39.3] 08/27/2007 URGE INCONTINENCE [N39.41] 08/27/2007 MASTODYNIA [N64.4] 08/27/2007 IRRITABLE COLON [K58.9] 08/27/2007 VIRAL WARTS NOS [B07.9] 08/29/2008 Generalized osteoarthrosis, unspecified site [M*08/29/2008 04/05/2022 PAIN IN LIMB [M79.609] 08/29/2008 ACQ DEFORMITY OF TOE NEC [M20.5X9] 09/12/2008 Uncontrolled type 2 diabetes mellitus with hype*04/01/2010 06/09/2020 Unspecified constipation [K59.00] 09/10/2010 Rectocele [N81.6] 09/10/2010 Folliculitis [L73.9] 09/15/2010 Acne vulgaris [L70.0] 09/15/2010 Other seborrheic dermatitis [L21.8] 09/15/2010 Other seborrheic keratosis [L82.1] 09/15/2010 Stucco keratoses [L82.1] 09/15/2010 Eczema intertrigo [L30.4] 09/15/2010 Xerosis cutis [L85.3] 09/15/2010 Actinic Damage//Sun-damaged skin [L57.8] 09/15/2010 Solar lentigines [L81.4] 09/15/2010 Telangiectasia [I78.1] 09/15/2010 DM (diabetes mellitus) (HCC) [E11.9] 09/28/2010 06/09/2020 Pruritus - disorder 02/23/2011 Cutaneous skin tags [L91.8] 02/23/2011 Plantar fascial fibromatosis [M72.2] 06/13/2011 Capsulitis [M77.9] 02/09/2012 Screening for cardiovascular condition [Z13.6] 07/13/2020 Palpitations [R00.2] 07/13/2020 Chest pain due to myocardial ischemia [I25.9] 07/13/2020 SOB (shortness of breath) [R06.02] 09/14/2020 Obesity, Class II, BMI 35-39.9 [E66.812] 09/14/2020 04/05/2022 Coronary artery disease involving [place]*11/10/19 (more content not included)... Normal [facility] Gastroenterology Visit Repor ton 07-03-2024 Gastroenterology Visit Report [facility] Gastroenterology [address] [place] [address] OFFICE VISIT Date of Service: 07/03/24 MR#: [id number] Acct: [id number] Name: GABBY GUILLEN Rep #: [id number] : 1945 Provider: ODILON Ross Age/Sex: 79/F [place] [facility] [place] [place] Status: Signed Intake Vital Signs 05/30/23 08:33 Height 5 ft Intake Visit Reasons: 6 M FU Chief Complaint: constipation, fatty liver Allergies clarithromycin (From Biaxin) Allergy (Verified 07/05/22 10:11) Rash Seqmjsq-AAM-IjM Reductase Inhibitor Adverse Reaction (Verified 07/05/22 10:11) MUSCLE ACHES Patient : No Have you fallen in the past year?: No Nurse's Note: OV 07.03.24 Pt here for f/u and reports nausea, diarrhea, constipation, abdominal pain, gas, and bloating. Continues pantoprazole, omeprazole. trulance and ursodiol. Pt states she thinks the ursodiol is making her feel sick. [facility] Medical History Arthritis Back pain CAD (coronary artery disease) Cancer Cardiology follow-up encounter CPAP (continuous positive airway pressure) dependence Depression Diabetes Dietary restriction Difficulty swallowing Dyspareunia Esophageal varices without bleeding Fatty liver FH: cholecystectomy GERD (gastroesophageal reflux disease) History of echocardiogram History of edema History of IBS History of pain when walking History of stress test History of ulceration Hx of benign gastric tumor Hypertension Injury of head and neck Leg cramps Low iron Migraine headache Myalgia Non-smoker Psoriatic arthritis Shortness of breath on exertion TIA (transient ischemic attack) Wears dentures Wears hearing aid Wears partial dentures Surgical History (Reviewed 07/05/22 @ 10:25 by Mallory Delgado PROGRAM SCHEDULE CLERK, PROGRAM SCHEDULE CLERK-C) H/O adenoidectomy H/O: hysterectomy History of appendectomy History of cardiac catheterization History of esophagogastroduodenoscopy (EGD) History of lumpectomy of both breasts Hx of arthroscopic knee surgery Hx of colonoscopy Hx of left cataract extraction Hx of right cataract extraction Hx of shoulder surgery Social History (Reviewed 07/05/22 @ 10:25 by Mallory Delgado PROGRAM SCHEDULE CLERK, PROGRAM SCHEDULE CLERK-C) Smoking Status: Never smoker alcohol intake: never HPI HPI Chief Complaint: constipation, fatty liver Details: GABBY GUILLEN, is a 79 F who presents to the office today for f/u. EGD and colonoscopy 07.07.21 [facility] for GERD EGD irregular Zline; gastritis; Grade I esophageal varices of mid esophagus. Colonoscopy poor prep; internal/external hemorrhoids. US RUQ 4.29.22 fatty infiltration of liver; normal spleen [facility] established 2021 for gastritis, esophageal varices and IBS. Last OV 12.25.24 Increasing heartburn symptoms. Switch PPI to pantoprazole. Start famotidine PRN. Continue laxatives PRN. Liver elastography ordered. Continues vitamin E and ursodiol. Elastography 01.09.24; Liver stiffness measures 12.9 kPa compatible with F3-F4 (Moderate to severe liver fibrosis) Metavir score. 2. Status post cholecystectomy. OV 07.03.24 Pt continues with epigastric pain and burning. She is unsure if she is taking pantoprazole or omeprazole. She thinks she may be taking both. She discontinued the ursodiol as it was making her nauseous and causing diarrhea. ROS Const Constitutional: Positive for headache(s) and weakness; No fatigue, fever(s) or weight change ENT ENT: Positive for headache(s) and difficulty swallowing Gastro GI: Positive for abdominal pain, bloating, constipation, diarrhea, heartburn, difficulty swallowing, excessive flatus and nausea/dyspepsia; No belching, change in bowel habits, change in stool character, coffee ground emesis, cramping, feeling full early, incontinent of stools, Vomiting blood/hematemesis, Blood in stool, loose stools, Black,tarry stools, pain with swallowing, vomiting or other Musc Musculoskeletal: Positive for joint pain, back pain, joint swelling, muscle weakness, numbness, tingling, Arthritis, sciatica and leg pain at night Skin Skin: Positive for dry skin, itchy eyes and rash; No yellowing of the eye Neuro Neurology: Positive for dizziness, weakness, headache(s), numbness, tingling and Increased tone in limbs Psych Psychiatric: No anxiety and No depression Endo Endocrine: No fatigue or weight change Aller/Imm Allergy/Immunologic: Positive for itchy eyes Wagner/Lymp Hematologic/Lymphatic: Positive for easy bruising; No easy bleeding Exam Const General: cooperative and comfortable Nutritional Appearance: average body habitus and well nourished [facility] Head: normal to inspection Ears: hearing grossly normal bilaterally Nose: external nose normal Face and sinus: normal facial exam Eyes General: appearance normal, both eyes and all related (more content not included)... Normal [facility] CNOVon 07-02-2024 CNOV Office Visit (INTMWS ) GABBY GUILLEN ([id number]) 1945 F T Date Time Provider Department 07/02/24 9:40 AM RODRIGO SALAS INTMWS During your visit today, we recorded the following information about you: Pulse Respiration Blood pressure Weight 64/minute 16/minute 128/76 63.1 kg Rodrigo Salas MD 07/02/2024 6:35 PM Signed Reason for Visit Patient presents with: Follow Up Gabby Guillen is a 77 year old female who presents here today for Above Complaints.. Health Maintenance SHINGRIX VACCINE(1 of 2) DTAP,TDAP,TD(2 - Td or Tdap) ADVANCE DIRECTIVE DISCUSSION DEPRESSION ASSESSMENT HPI He has a past medical history of rheumatoid arthritis, psoriasis with arthritis, fibromyalgia, GERD, hypertension, migraines , hyperlipidemia, diabetes type 2, CAD with moderate disease in the LAD, statin intolerance. Obesity. Weight loss: she has been on ozempic for the past 2 years and lost around 53 pounds, her trajectory has not stopped. Today she notes having abdominal pain HTN: BP controlled today. Checks BP at home. Compliant with medications. Denies any chest pain, palpitations, SOB, swelling in the feet. Careful with diet to avoid salt, trying to eat more fruits and vegetables, exercises regularly She is on losartan potassium and she is concerned with the potassium levels. Was taken off hctz, but the potassium was left on, which we stopped 12/05. Diabetes mellitus: Reviewed labs, her hba1c is 5.3. to cont the glp 1. Not on any other Diabetes Mellitus medication She has plateaued her wt loss and would like her to take medication to maintain the weight loss. Patient has totally lost around of 50 pounds since the last 3 years on the Ozempic. CAD: She has been following up with Dr. Choi. She has moderate LAD disease, it is 60% narrowed in the mid LAD with moderate diffuse disease. She Rheumatoid arthritis and psoriasis: She is on Tremfya, recently got the medication. Fibromyalgia: she does not think the cymbalta is helping her. Grade 1 esophageal varices: downhill varices likely from svc or lung pathology. Gabby had routine EGDs 2021, as surveillance for her chronic GERD. She was due for 1 this year and so she had it done in June and was found to have esophageal varices. She was then referred to Dr. Carlin who admitted her and performed an EGD and colonoscopy Dr. Carlin's EGD revealed that patient has grade 1 mid esophageal varices- He noted that the duodenum 1 and 2 parts were normal, antrum was biopsied as she had z line irregularities. She has fatty liver with out any spleenomegaly per our ultrasound reports. She had elastography done which showed fatty liver which was moderate to severe. 03/01/24 : her weight loss has stabilized after we cut her ozempic down to 0.5 mgs and today we will be cutting it down to 0.25. She is frail, very tired, no energy and a little weak and is open for Physical Therapy for strengthening. She was advised to take vit b12. She is well controlled with the psoriasis on the Tremfya, but is not taking the medication as it has not come to her. Also not taking the Praluent and has not connected with her spiral binder for it. She has peripheral arterial disease which is stable. She is on prilosec for the gi varices and has no issues, hb was normal 4 days ago. She tried to get off the cymbalta but she had some withdrawal symptoms of jitteriness, anxiety, and the constant thoughts and not sleeping well. With her psoriatic arthritis she is controlled on the current medication, she has not joint pain, and her rash has resolved. July 02, 2024: She gained around 4 pounds of weight with the decreased dose of Ozempic. She is doing well over all with her sugars, she checked her sugars and it was a 109. She has a ministroke, is diabetic and has hardening of the cardiac arteries , long segments so stents could not be put. She used to be on Repatha but that was stopped because her lipids were good and she does not need it anymore. No GI bleeding, She is on Trempya for psoriatric arthritis. Sometimes with the weather the symptoms flare up and sometimes she is otherwise well. No problem-specific Assessment AND Plan notes found for this encounter. PAST MEDICAL HISTORY Diagnosis Date Adjustment disorder with depressed mood 03/17/2005 Arthritis Coronary artery disease Dyspareunia 03/17/2005 Esophageal reflux Gastroesophageal reflux Esophageal reflux HLD (hyperlipidemia) HTN (hypertension) Impaired fasting glucose 03/17/2005 Mixed hyperlipidemia Myalgia and myositis, unspecified Other and unspecified hyperlipidemia 03/17/2005 PMH - PAST MEDICAL HISTORY OF TIA's PMH - PAST MEDICAL HISTORY OF skin cancer Rheumatoid arthritis(714.0) Trace cataracts 2007 Uncontrolled type 2 diabetes mellitus with hyperglycemia (HCC) 04/01/2010 Unspecified asthma(493 (more content not included)... Normal [facility] XR DIGIT 3V FRONTAL/LAT/OBL RTon 07-02-2024 XR DIGIT 3V FRONTAL/LAT/OBL RT * * *Final Report* * * DATE OF EXAM: Jul 02 2024 11:30AM WOX [id number] - XR DIGIT 3V FRONTAL/LAT/OBL RT / PROCEDURE REASON: Arthritis of carpometacarpal (CMC) joint of left thumb * * * * Physician Interpretation * * * * EXAM(s): XR DIGIT 3V FRONTAL/LAT/OBL RT..... HISTORY: 79 years old Clinical information: Arthritis of carpometacarpal (CMC) joint of left thumb Arthritis of carpometacarpal (CMC) joint of right thumb TECHNIQUE: Images: XR DIGIT 3V FRONTAL/LAT/OBL RT Comparison: None. RESULT: Findings: Mild joint space narrowing involving the carpal metacarpal joint of the right thumb, associated with minimal sclerosis. No fracture identified. Spur formation at the base of the distal phalanx of the thumb. Carpal bones and intercarpal joints are normally maintained.. IMPRESSION: Mild degenerative changes involving the carpal metacarpal joint of the thumb Intern Retail: CAROL Transcribe Date/Time: Jul 05 2024 4:04P Dictated by : HERSON ROBERSON MD This examination was interpreted and the report reviewed and electronically signed by: HERSON ROBERSON MD on Jul 05 2024 4:11PM EST [id number] Normal [facility] CNOVon 06-19-2024 CNOV Office Visit (AGCARD POB) GABBY GUILLEN ([id number]) 1945 F [facility] Date Time Provider Department 06/19/24 11:20 AM REINALDO CHOI AGCARDPOB During your visit today, we recorded the following information about you: Pulse Respiration Blood pressure Weight 65/minute 16/minute 130/73 61.2 kg Height 1.524 m Reinaldo Choi MD 06/19/2024 12:05 PM Signed Reinaldo Choi MD Interventional Cardiology [address] [place], [place] [id number] Chief Complaint Patient presents with: New Patient Evaluation: Hypertension HISTORY OF PRESENT ILLNESS: Ms. Guillen is a 78 year old female seen in my office for follow-up with prior history of moderate coronary artery disease involve the left anterior descending artery also history of hyperlipidemia doing well from medical point of view Recurrent episode of chest pain usually at rest not with activity consistent with noncardiac chest pain Cardiac Risk Factors age (male over 45, female over 55), hyperlipidemia, hypertension, family history of CAD PAST MEDICAL HISTORY Diagnosis Date Adjustment disorder with depressed mood 03/17/2005 Arthritis Coronary artery disease Dyspareunia 03/17/2005 Esophageal reflux Gastroesophageal reflux Esophageal reflux HLD (hyperlipidemia) HTN (hypertension) Impaired fasting glucose 03/17/2005 Mixed hyperlipidemia Myalgia and myositis, unspecified Other and unspecified hyperlipidemia 03/17/2005 PMH - PAST MEDICAL HISTORY OF TIA's PMH - PAST MEDICAL HISTORY OF skin cancer Rheumatoid arthritis(714.0) Trace cataracts 2007 Uncontrolled type 2 diabetes mellitus with hyperglycemia (HCC) 04/01/2010 Unspecified asthma(493.90) 03/17/2005 Unspecified closed fracture of ankle Unspecified essential hypertension 03/17/2005 PAST SURGICAL HISTORY Procedure Laterality Date ABDOMINAL SURGERY HX ADENOIDECTOMY PRIMARY Adenoidectomy ADENOIDECTOMY SECONDARY AGE 12/> APPENDECTOMY age 30s incidental to SARAH APPENDECTOMY HX BIOPSY BREAST OPEN INCISIONAL Bx of breast, incisional x3 both BREAST SURGERY HX CHOLECYSTECTOMY Cholecystectomy CHOLECYSTECTOMY COLONOSCOPY FLX DX W/COLLJ SPEC WHEN PFRMD 08/2002 Colonoscopy COLONOSCOPY FLX DX W/COLLJ SPEC WHEN PFRMD 2010 Colonoscopy COLONOSCOPY SCREENING 07/07/2021 EGD W/O BRSH SPEC VARICIES INJ 07/07/2021 ESOPHAGOGASTRODUODENOSCOPY TRANSORAL DIAGNOSTIC EGD ESOPHAGOGASTRODUODENOSCOPY TRANSORAL DIAGNOSTIC 08/2002 EGD ESOPHAGOGASTRODUODENOSCOPY TRANSORAL DIAGNOSTIC 04/14/2011 EGD EYE SURGERY HX KNEE LEFT OP SURGERY LUMPECTOMY/RADIOTHERAPY DIAG MAMM/A10 1980s bilat NEUROPLASTY AND/TRANSPOS MEDIAN NRV CARPAL TUNNE both PAST SURGICAL HISTORY OF benign leg tumor PAST SURGICAL HISTORY OF multiple brest lumpectomy x3 benign both PAST SURGICAL HISTORY OF facial/mouth surgery PAST SURGICAL HISTORY OF dental surgery PAST SURGICAL HISTORY OF bladder/colon with fistula tumor benign PAST SURGICAL HISTORY OF benign tumor from right lower leg PAST SURGICAL HISTORY OF 04/27/2005 right shoulder scope and debridement SKIN BIOPSY HX TONSILLECTOMY HX TONSILLECTOMY PRIMARY/SECONDARY Tonsillectomy TOTAL ABDOMINAL HYSTERECT W/WO RMVL TUBE OVARY Hysterectomy, SARAH + BSO in stages VAGINAL HYSTERECTOMY FAMILY HISTORY Problem Relation Age of Onset Hypertension Mother Breast Cancer Mother Diabetes Father Heart Father Hypertension Father Hypertension Sister Hypertension Brother 3 brothers all with hypertension diabetes all have this Thyroid Daughter Hypertension Son Diabetes Son Cancer Daughter thyroid Diabetes Sister x 2 both have diabetes Cancer Brother All 3 Brothers Hypertension Other Several Family Member Social History Tobacco Use Smoking status: Never Smokeless tobacco: Never Vaping Use Vaping status: Never Used Substance Use Topics Alcohol use: Not Currently Drug use: Never ALLERGIES Allergen Reactions Amlodipine Swelling Biaxin [Clarithromy* Rash Metformin Diarrhea ER formulation caused symptoms at 1 tablet per day Spironolactone Other: See Comments lightheaded and dizzy Appctvn-Cav-Bzg Red* Intolerance myalgia and diarrhea Medications: Current Outpatient Medications Medication Sig Dispense Refill semaglutide (OZEMPIC) 0.25 mg or 0.5 mg (2 mg/3 mL) pen Inject 0.25 mg subcutaneously one time a week. 3 mL 2 DULoxetine (CYMBALTA) 30 mg capsule Take 1 capsule by mouth once daily. [address] (PROTONIX) 20 mg tablet Take 20 mg by mouth once daily. Lancets lancets Test blood sugar(s) 1 times daily. Dx: Type 2 DM - Controlled E11.9 Insulin: No 100 Each 11 hydrocortisone 2.5 % cream abdomenal areas as needed 60 g 6 Blood Sugar Diagnostic, Drum (ACCU-CHEK COMPACT TEST) Strp TEST BLOOD SUGAR ONCE DAILY. 250.00 (Patient taking differently: T (more content not included)... Normal [facility] [id number] 03-22-2024 [id number] HNO ID: [id number] Author: BOWEN RODRIGUEZ PT Service: ? Author Type: Physical Therapist Type: [id number] Filed: 03/22/2024 09:13 Note Text: [facility] Physical Therapy Plan of Care Certification Patient Name: Gabby Guillen : 1945 [facility] #: [id number] Date: 03/21/2024 To: Rodrigo Salas MD From Therapist: Bowen Rodriguez PT RE: Patient Certification/ Recertification Your review, approval and electronic signature are required in order to comply with Payor: [facility] MEDICARE / Plan: AET MEDICARE HMO / Product Type: HMO / regulations. The identified Physical Therapy PLAN OF CARE for the patient is as follows: R29.898 Weakness of lower extremity, unspecified laterality (primary encounter diagnosis) R63.4 Weight loss R54 Frailty syndrome in geriatric patient PLAN OF CARE: Assessment: Gabby Guillen presents with diagnosis of generalized weakness and frality that interferes with standing, walking, bending, heavy exertion, lifting . The patient presents with impairments in ADL's, overall function, and strength. PROMIS? (Patient-Reported Outcomes Measurement Information System) scores were reviewed and identified as within normal limits. Prognosis for therapy is Fair due to: clinical presentation, multiple co- morbidities, chronic nature of impairments, limited tolerance to activity . The patient will benefit from skilled therapy services to meet the goals established for this plan of care as noted below. Classification Pain Mechanism Classification: Neuropathic Low Back Pain Classification: Symptom Modulation Goals for Episode of Care: established 03/21/24 [place] in home exercise program. Patient will decrease pain rating by 2 points to meet minimal clinical important difference for numeric pain rating scale. Patient will demonstrate increase in BLE strength to 4 to 4+/5 during manual muscle testing in order to improve function for basic self-care tasks, home management tasks, and light functional tasks. Patient will improve 30 second sit to stand to demonstrate improvement in functional lower extremity strength. Time Frame for Goals and Treatment : 05/22/24 Planned Interventions, Frequency, and Duration: Current Frequency: 1x/week (patient and both would like to make it 1x/month vs suggested 1x/week. if patient is compliant with HEP she should still see improved strength) Duration: 4 weeks Total Number of Visits Planned: 4 Planned Treatment Interventions: Therapeutic exercise (95371), Neuromuscular re-education (12826), Manual therapy (23347), Therapeutic activities (58708), Self-penitentiary management ([id number]), Patient/Family/Caregiver Education, Body Mechanics Training PLAN FOR NEXT VISIT: IN Patient demonstrates good understanding of plan of care and treatment. The above goals and plan of care were discussed and agreed upon by patient/family. For further details regarding this patient refer to the Physical Therapy electronically documented visit dated 03/21/2024. Provider Attestation I have reviewed the treatment plan for Gabby Guillen, [facility]# [id number] for the period of 03/21/24 -- 05/21/24, established on 03/21/2024. Signature certifies the need for therapy services. Normal [facility] CNTHERAPYon 03-21-2024 CNTHERAPY OT/PT/Speech Visit ( PTWS) TEJINDERGABBY PUENTES J ([id number]) 1945 F [facility] Date Time Provider Department 03/21/24 10:00 AM BOWEN RODRIGUEZ PTWS Date Time Provider Department Center 03/21/2024 10:00 AM [id number], SEAN PTWS Manuel Tompkins Reason for Visit: PT Eval [747] Primary Visit Diagnosis:Weakness of lower extremity, unspecified laterality [R29.898] Other Visit Diagnoses:Weight loss [R63.4] Frailty syndrome in geriatric patient [R54] Allergies As of Date: 03/21/2024 Noted Allergy Reaction AMLODIPINE 09/17/2020 7 - Swelling BIAXIN (CLARITHROMYCIN) 08/27/2007 2 - Rash METFORMIN 11/19/2009 6 - Diarrhea Comments: ER formulation caused symptoms at 1 tablet per day SPIRONOLACTONE 10/11/2022 14 - Other: See Comments Comments: lightheaded and dizzy [id number] REDUCTASE INHIBIT*08/08/2012 5 - Intolerance Comments: myalgia and diarrhea Date Reviewed: 03/01/2024 Reviewed by: Gabby Fountain LPN - Fully Assessed Prescriptions as of 03/22/2024 - REPATHA PUSHTRONEX 420 mg/3.5 mL wearable injector INJECT 3.5 ML BY INJECTION(UNSPECIFIED PARENTERAL ROUTES) ROUTE ONCE EVERY MONTH. ONCE A MONTH - semaglutide (OZEMPIC) 0.25 mg or 0.5 mg (2 mg/3 mL) pen Inject 0.25 mg subcutaneously one time a week. - DULoxetine (CYMBALTA) 30 mg capsule Take 1 capsule by mouth once daily. - alirocumab (PRALUENT PEN) 75 mg/mL pen Inject 1 mL subcutaneously every other week. - carvedilol (COREG) 3.125 mg tablet TAKE 4 TABLETS TWICE A DAY WITH MEALS - fluticasone (FLONASE) 50 mcg/actuation nasal spray USE 2 SPRAYS IN EACH NOSTRIL ONCE DAILY. RINSE MOUTH AFTER USE. - losartan (COZAAR) 100 mg tablet Take 1 tablet by mouth once daily. - pantoprazole DR (PROTONIX) 20 mg tablet Take 20 mg by mouth once daily. - blood sugar diagnostic (BLOOD GLUCOSE TEST) test strip Test blood sugar(s) 1 times daily. Dx: Type 2 DM - Controlled E11.9 Insulin: No - Lancets lancets Test blood sugar(s) 1 times daily. Dx: Type 2 DM - Controlled E11.9 Insulin: No - hydrocortisone 2.5 % cream abdomenal areas as needed - TREMFYA 100 mg/mL AutoInjector Inject 1 Dose subcutaneously as directed. Every other month - Blood Sugar Diagnostic, Drum (ACCU-CHEK COMPACT TEST) Strp TEST BLOOD SUGAR ONCE DAILY. 250.00 - blood-glucose meter, drum-type(ACCU-CHEK COMPACT PLUS CARE KIT) As directed Maintenance Mechanic Engine: Therapy (PT/OT/Speech/Resp) ID: [id number] 03/21/2024 10:36 AM Author: BOWEN RODRIGUEZ Signed by BOWEN RODRIGUEZ PT on 03/21/2024 at 10:36 AM Document text: Program_ID:[id number] Access Code: [email or web address] URL: [email or web address] Date: 03-21-2024 Prepared By: Bowen Rodriguez Program Notes Exercises - Hooklying Single Knee to Chest Stretch - 3 x daily - 7 x weekly - 1 sets - 3 reps - Hooklying Single Knee to Chest Stretch - 3 x daily - 7 x weekly - 1 sets - 3 reps - Supine Straight Leg Raises - 1 x daily - 7 x weekly - 3 sets - 10 reps - Sidelying Hip Abduction - 1 x daily - 7 x weekly - 3 sets - 10 reps - Clamshell - 1 x daily - 7 x weekly - 3 sets - 10 reps - Standing Hip Abduction with Counter Support - 1 x daily - 7 x weekly - 3 sets - 10 reps - Heel Raises with Unilateral Counter Support - 1 x daily - 7 x weekly - 3 sets - 10 reps - Standing March with Counter Support - 1 x daily - 7 x weekly - 3 sets - 10 reps Normal [facility] THERAPY NTon 03-21-2024 THERAPY NT HNO ID: [id number] Author: BOWEN RODRIGUEZ PT Service: ? Author Type: Physical Therapist Type: Therapy (PT/OT/Speech/Resp) Filed: 03/21/2024 10:36 Note Text: Program_ID:[id number] Access Code: [email or web address] URL: [email or web address] Date: 03-21-2024 Prepared By: Bowen Rodriguez Program Notes Exercises - Hooklying Single Knee to Chest Stretch - 3 x daily - 7 x weekly - 1 sets - 3 reps - Hooklying Single Knee to Chest Stretch - 3 x daily - 7 x weekly - 1 sets - 3 reps - Supine Straight Leg Raises - 1 x daily - 7 x weekly - 3 sets - 10 reps - Sidelying Hip Abduction - 1 x daily - 7 x weekly - 3 sets - 10 reps - Clamshell - 1 x daily - 7 x weekly - 3 sets - 10 reps - Standing Hip Abduction with Counter Support - 1 x daily - 7 x weekly - 3 sets - 10 reps - Heel Raises with Unilateral Counter Support - 1 x daily - 7 x weekly - 3 sets - 10 reps - Standing March with Counter Support - 1 x daily - 7 x weekly - 3 sets - 10 reps Normal [facility] Heart Perfusion W stress and W radionuclide Jennifer 01-29-2024 * * *Final Report* * * DATE OF EXAM: Jan 29 2024 11:30AM [address] CARDIAC PERF STRESS/PHARM / PROCEDURE REASON: multiple diagnoses * * * * Physician Interpretation * * * * Stress Staff Air Tactical Officer Report: [facility] Date of service: 01/29/2024 9:28:40 AM Supervising physician: Reinaldo Choi MD PATIENT: Name: MRS. GABBY GUILLEN Age: 78 years Gender: F The supervising physician was in the department and immediately available. * * * Final * * * PATIENT: Name: MRS. GABBY GUILLEN Age: 78 years Gender: F CONCLUSIONS: 1. SPECT Perfusion Study: Normal. 2. There is no scintigraphic evidence for inducible ischemia. 3. No evidence of scarred myocardium. 4. Left ventricle is normal in size. The left ventricle systolic function is normal. 5. Right ventricle is normal in size. The right ventricle systolic function is normal. 6. This is a low risk scan. Gated Stress FBP LVEF % 67 Prior Study Comparison Prior nuclear cardiology exam was performed on 07/20/20. Shows no change. Nuclear Med Report:1-Day Gated SPECT Myocardial Perfusion with Regadenoson Stress: Myocardial perfusion imaging was performed at rest 30 minutes following the IV injection of the radiotracer. The patient received 0.4 mg of regadenoson, via rapid IV push, immediately followed by radiotracer IV. Gated post stress tomographic imaging was performed 30 to 60 minutes later. See administered radiotracer and doses below. [facility] Date of service: 01/29/2024 9:28:40 AM Ordering Physician: REINALDO COHI. Requesting Physician: REINALDO CHOI Indication: CP - ECG uniterpretable OR unable to exercise and Assessment for known CAD Interpreting physician: Juan Alfred MD Previous Cardiovascular Interventions: Diagnostic cath (09/22/20) Height: 152.40 cm BSA: 1.61 m Weight: 61.24 kg BMI: 26.4 kg/m Imaging Protocol Limitation Reason G.I. uptake and Breast attenuation. Exam Type: Rest Stress Radiopharm: Tc-99m Tetrofosmin Tc-99m Tetrofosmin Dosage(mCi): 13.2 32.8 Stress Agent: Regadenoson 0.4mg Supply provided from [facility] Resting Blood Press: 136/78 mmHg Image Quality The overall study imaging quality was deemed to be fair. The following technical issues were noted: G.I. uptake and Breast attenuation. FINDINGS: Stress IR:3D Gated Stress FBP LVEF: 67 % ED Volume: 64 ml ES Volume: 21 ml TID: 1.08 Perfusion Findings Stress IR:3D - Summed Score=0 All segments demonstrate normal perfusion. Rest IR:3D - Summed Score=0 All segments demonstrate normal perfusion. Stress IR:3D Rest IR:3D Summed Score=0 Summed Score=0 LEFT VENTRICLE The left ventricle is normal in size. Left ventricular systolic function is normal. Right Ventricle The right ventricle is normal in size. Right ventricle systolic function is normal. Stress Test Findings: There is no scintigraphic evidence for inducible ischemia. There is no evidence of scarring. * * * Final * * * Stress ECG Report: [facility] Date of service: 01/29/2024 9:28:40 AM Ordering physician: REINALDO CHOI applied behavior specialist: Sheri Vidal RN Interpreting physician: Reinaldo Choi MD Patient name: MRS. GABBY GUILLEN Age: 78 years Gender: F Height: 152.40 cm BSA: 1.61 m Weight: 61.24 kg BMI: 26.4 kg/m Indication: Chest pressure / Chest tightness, Shortness of breath and Atherosclerotic heart disease NOS Stress ECG Conclusion: Conclusion: Normal Prior exam comparison: No significant changes Stress ECG Summary: The patient's resting heart rate was 67 bpm and blood pressure was 136/78 mmHg. The test was terminated due to end of protocol. No symptoms provoked during stress. The maximum heart rate was 82 bpm, which is 58% of the predicted heart rate for age. Peak blood pressure was 124/70 mmHg. The double product achieved was 52891. Previous cardiovascular interventions: Diagnostic cath (09/22/20) Medications: Last Used CARVEDILOL 1 Days Resting ECG: Normal Sinus Rhythm Symptoms at rest: No symptoms Pharamcologic Protocol: Regadenoson Stress Exercise Table: +-----+--+---+---+ (more content not included)... DIVISION OF RADIOLOGY Provider, [facility] - 01/29/2024 * * *Final Report* * * DATE OF EXAM: Jan 29 2024 11:30AM WON 0006 - NM CARDIAC PERF STRESS/PHARM / PROCEDURE REASON: multiple diagnoses * * * * Physician Interpretation * * * * Stress Staff Air Tactical Officer Report: [facility] Date of service: 01/29/2024 9:28:40 AM Supervising physician: Reinaldo Choi MD PATIENT: Name: MRS. GABBY GUILLEN Age: 78 years Gender: F The supervising physician was in the department and immediately available. * * * Final * * * PATIENT: Name: MRS. GABBY GUILLEN Age: 78 years Gender: F CONCLUSIONS: 1. SPECT Perfusion Study: Normal. 2. There is no scintigraphic evidence for inducible ischemia. 3. No evidence of scarred myocardium. 4. Left ventricle is normal in size. The left ventricle systolic function is normal. 5. Right ventricle is normal in size. The right ventricle systolic function is normal. 6. This is a low risk scan. Gated Stress FBP LVEF % 67 Prior Study Comparison Prior nuclear cardiology exam was performed on 07/20/20. Shows no change. Nuclear Med Report:1-Day Gated SPECT Myocardial Perfusion with Regadenoson Stress: Myocardial perfusion imaging was performed at rest 30 minutes following the IV injection of the radiotracer. The patient received 0.4 mg of regadenoson, via rapid IV push, immediately followed by radiotracer IV. Gated post stress tomographic imaging was performed 30 to 60 minutes later. See administered radiotracer and doses below. [facility] Date of service: 01/29/2024 9:28:40 AM Ordering Physician: REINALDO CHOI. Requesting Physician: REINALDO CHOI Indication: CP - ECG uniterpretable OR unable to exercise and Assessment for known CAD Interpreting physician: Juan Alfred MD Previous Cardiovascular Interventions: Diagnostic cath (09/22/20) Height: 152.40 cm BSA: 1.61 m Weight: 61.24 kg BMI: 26.4 kg/m Imaging Protocol Limitation Reason G.I. uptake and Breast attenuation. Exam Type: Rest Stress Radiopharm: Tc-99m Tetrofosmin Tc-99m Tetrofosmin Dosage(mCi): 13.2 32.8 Stress Agent: Regadenoson 0.4mg Supply provided from [facility] Resting Blood Press: 136/78 mmHg Image Quality The overall study imaging quality was deemed to be fair. The following technical issues were noted: G.I. uptake and Breast attenuation. FINDINGS: Stress IR:3D Gated Stress FBP LVEF: 67 % ED Volume: 64 ml ES Volume: 21 ml TID: 1.08 Perfusion Findings Stress IR:3D - Summed Score=0 All segments demonstrate normal perfusion. Rest IR:3D - Summed Score=0 All segments demonstrate normal perfusion. Stress IR:3D Rest IR:3D Summed Score=0 Summed Score=0 LEFT VENTRICLE The left ventricle is normal in size. Left ventricular systolic function is normal. Right Ventricle The right ventricle is normal in size. Right ventricle systolic function is normal. Stress Test Findings: There is no scintigraphic evidence for inducible ischemia. There is no evidence of scarring. * * * Final * * * Stress ECG Report: [facility] Date of service: 01/29/2024 9:28:40 AM Ordering physician: REINALDO CHOI applied behavior specialist: Sheri Vidal RN Interpreting physician: Reinaldo Choi MD Patient name: MRS. GABBY GUILLEN Age: 78 years Gender: F Height: 152.40 cm BSA: 1.61 m Weight: 61.24 kg BMI: 26.4 kg/m Indication: Chest pressure / Chest tightness, Shortness of breath and Atherosclerotic heart disease NOS Stress ECG Conclusion: Conclusion: Normal Prior exam comparison: No significant changes Stress ECG Summary: The patient's resting heart rate was 67 bpm and blood pressure was 136/78 mmHg. The test was terminated due to end of protocol. No symptoms provoked during stress. The maximum heart rate was 82 bpm, which is 58% of the predicted heart rate for age. Peak blood pressure was 124/70 mmHg. The double product achieved was [address]809. Previous cardiovascular interventions: Diagnostic cath (09/22/20) Medications: Last Used CARVEDILOL 1 Days Resting ECG: Normal Sinus Rhythm Symptoms at rest: No symptoms Pharamcologic Protocol: Regadenoson Stress Exercise Table: +-----+--+---+---+ Stage HR SYS JAMA +-----+--+---+---+ 1 81 +-----+--+---+---+ 2 85 122 66 +-----+--+---+---+ 3 85 +-----+--+---+---+ 4 82 124 70 +-----+--+---+---+ +-----+--+---+---+ HR SYS DI (more content not included)... [facility] Radiology Study observation (narrative) [facility] NM Heart Perfusion W stress and W radionuclide IVOrdered By: [facility] Provider on 01-29-2024 [facility] ABD Limited w/ Elastographyo n 01-09-2024 ABD Limited w/ Elastography [facility] [address] [place] [id number] ABD Limited w/ Elastography MR#: [id number] Acct: [id number] Name: GABBY GUILLEN Rep #: [id number] : 1945 F 78 From: Virgilio fuller MD PCP: Dr. Rodrigo Salas MD Status: [facility] CL Study: ABD Limited w/ Elastography Date of Exam: 12/14 12/05 Exam# [id number] Ordering Dr: Alecia Padilla [id number] STUDY: ABDOMINAL ULTRASOUND - RIGHT UPPER QUADRANT; ELASTOGRAPHY REASON FOR VISIT: Female, 78 years old. Fatty infiltration of the liver. TECHNIQUE: Ultrasound evaluation of the right upper quadrant was performed with real-time and static broussard-scale imaging. Point quantification shear wave elastography was performed ([place]). TECHNICAL QUALITY: Adequate. COMPARISON: Comparison is made with prior study dated July 08, 2022. FINDINGS: Liver: The liver measures 15.5 cm. There is normal echogenicity of the liver. The bile ducts are within normal limits. There is hepatic color flow. The direction of portal flow is hepatopetal. There is no demonstrated mass lesion. Median liver stiffness measured 12.9 kPa. Gallbladder: The patient is status post cholecystectomy. Common Bile Duct (C.B.D.): The common bile duct measures 3.5 mm. Pancreas: Limited visualization due to overlying bowel gas. Right Kidney: Normal size of the right kidney. The right kidney measures 10 cm x 4.3 cm x 4.7 cm. Normal renal cortex. The right cortex measures 1.0 cm. There is no demonstrated renal mass or cyst. There is no right hydronephrosis. US/ABD Limited w/ Elastography IMPRESSION: 1. Liver stiffness measures 12.9 kPa compatible with F3-F4 (Moderate to severe liver fibrosis) Metavir score. 2. Status post cholecystectomy. Electronically Signed: Virgilio Acuna MD at 14:46 EDT , CC: Dr. Rodrigo Salas MD; ODILON Ross Intern Retail: Signed Normal [facility] CBC W Auto Differential pane l (Bld)on 11-28-2023 Basophils (Bld) [#/Vol] 0.03 10*3/uL [facility] Basophils/100 WBC (Bld) 0.5 % [facility] Differential cell count method Nom (Bld) Auto [facility] Eosinophils (Bld) [#/Vol] 0.16 10*3/uL [facility] Eosinophils/100 WBC (Bld) 2.6 % [facility] Erythrocyte distribution width (RBC) [Ratio] 12.4 % 11.5 - 15.0 % [facility] Hematocrit (Bld) [Volume fraction] 40.3 % 36.0 - 46.0 % [facility] Hemoglobin (Bld) [Mass/Vol] 13.2 g/dL 11.5 - 15.5 g/dL [facility] Immature granulocytes (Bld) [#/Vol] [facility] Immature granulocytes/100 WBC (Bld) 0.2 % [facility] Lymphocytes (Bld) [#/Vol] 2.00 10*3/uL [facility] Lymphocytes/100 WBC (Bld) 32.8 % [facility] MCH (RBC) [Entitic mass] 29.6 pg 26.0 - 34.0 pg [facility] MCHC (RBC) [Mass/Vol] 32.8 g/dL 30.5 - 36.0 g/dL [facility] MCV (RBC) [Entitic vol] 90.4 fL 80.0 - 100.0 fL [facility] Monocytes (Bld) [#/Vol] 0.53 10*3/uL [facility] Monocytes/100 WBC (Bld) 8.7 % [facility] Neutrophils (Bld) [#/Vol] 3.37 10*3/uL [facility] Neutrophils/100 WBC (Bld) 55.2 % [facility] Nucleated RBC (Bld) [#/Vol] [facility] Nucleated RBC/100 WBC (Bld) [Ratio] 0.0 % /100 WBC [facility] Platelet mean volume (Bld) [Entitic vol] 10.3 fL 9.0 - 12.7 fL [facility] Platelets (Bld) [#/Vol] 280 10*3/uL [facility] RBC (Bld) [#/Vol] 4.46 10*6/uL 3.90 - 5.2 0 m/uL [facility] WBC (Bld) [#/Vol] 6.10 10*3/uL [facility] Cobalamin (Vitamin B12) [Mas s/Vol]on 11-28-2023 Interpretation and review of laboratory results Normal [facility] Comprehensive metabolic 2000 panelon 11-28-2023 Albumin [Mass/Vol] 4.1 g/dL 3.9 - 4.9 g/dL [facility] ALP [Catalytic activity/Vol] 91 U/L 34 - 123 U/L [facility] ALT [Catalytic activity/Vol] 12 U/L 7 - 38 U/L [facility] Anion gap [Moles/Vol] 10 mmol/L 8 - 15 mmol/L [facility] AST [Catalytic activity/Vol] 20 U/L 13 - 35 U/L [facility] Bilirubin [Mass/Vol] 1.3 mg/dL 0.2 - 1 .3 mg/dL [facility] Calcium [Mass/Vol] 10.0 mg/dL 8.5 - 10. 2 mg/dL [facility] Chloride [Moles/Vol] 104 mmol/L 98 - 10 7 mmol/L [facility] CO2 [Moles/Vol] 26 mmol/L 22 - 30 mmol/L [facility] Creatinine [Mass/Vol] 1.01 mg/dL High 0.58 - 0.96 mg/dL [facility] GFR/1.73 sq M.predicted among non-blacks MDRD (S/P/Bld) [Vol rate/Area] 57 mL/min/{1.73_m2} Low - PINF [facility] Comment on above: Estimated Glomerular Filtration Rate (eGFR) is calculated using the 2020 CKD-EPI creatinine equation. This equation utilizes serum creatinine, sex, and age as parameters. The creatinine assay has traceable calibration to isotope dilution-mass spectrometry. Refer to KDIGO guidelines for clinical interpretation. In patients with unstable renal function, e.g. those with acute kidney injury, the eGFR may not accurately reflect actual GFR. Glucose [Mass/Vol] 90 mg/dL 74 - 99 mg/dL [facility] Comment on above: The [place] Diabete [place] Association (ADA) provides guidance for cutoff values for fasting glucose and random glucose. The ADA defines fasting as no caloric intake for at least 8 hours. Fasting plasma glucose results between 100 to 125 mg/dL indicate increased risk for diabetes (prediabetes). Fasting plasma glucose results greater than or equal to 126 mg/dL meet the criteria for diagnosis of diabetes. In the absence of unequivocal hyperglycemia, results should be confirmed by repeat testing. In a patient with classic symptoms of hyperglycemia or hyperglycemic crisis, random plasma glucose results greater than or equal to 200 mg/dL meet the criteria for diagnosis of diabetes. Reference: Standards of Medical Care in Diabetes 2016, [place] Diabetes Association. Diabetes Care. 2016.39(Suppl 1). Interpretation and review of laboratory results Abnormal [facility] Potassium [Moles/Vol] 4.3 mmol/L 3.7 - 5.1 mmol/L [facility] Protein [Mass/Vol] 6.7 g/dL 6.3 - 8.0 g/dL [facility] Sodium [Moles/Vol] 140 mmol/L 136 - 144 mmol/L [facility] Urea nitrogen [Mass/Vol] 17 mg/dL 7 - 21 mg/dL [facility] HbA1c (Bld)on 11-28-2023 Average glucose Estimated from glycated hemoglobin (Bld) [Mass/Vol] 100 mg/dL [facility] Comment on above: eAG: (Estimated aver age glucose) is a calculated value from HgbA1c and is customer retention representative of the average blood glucose level in the last 2-3 month period. HbA1c (Bld) [Mass fraction] 5.1 % 4.3 - 5.6 % [facility] Comment on above: [place] Diabetes As sociation guidelines indicate that patients with HgbA1c in the range 5.7-6.4% are at increased risk for development of diabetes, and intervention by lifestyle modification may be beneficial. HgbA1c greater or equal to 6.5% is considered diagnostic of diabetes. [facility] Lipid 1996 panelon Cholesterol [Mass/Vol] 175 mg/dL NINF - 200 mg/dL [facility] Comment on above: <200 mg/dL, Desirabl e 200-239 mg/dL, Borderline high >239 mg/dL, High Cholesterol in HDL [Mass/Vol] 61 mg/dL 39 - PINF mg/dL [facility] Comment on above: 40-59 mg/dL, Accepta ble >59 mg/dL, High: Negative risk factor for coronary heart disease <40 mg/dL, Low: Positive risk factor for coronary heart disease Cholesterol in LDL [Mass/Vol] 99 mg/dL NINF - 100 mg/dL [facility] Comment on above: <100 mg/dL, Optimal 100-129 mg/dL, Near optimal/above optimal 130-159 mg/dL, Borderline high 160-189 mg/dL, High >189 mg/dL, Very high Secondary prevention optimal LDL Cholesterol levels are recommended to be < 70 mg/dL Cholesterol in LDL/Cholesterol in HDL [Mass ratio] 1.62 {ratio} NINF - 2.54 [facility] Comment on above: Reference: 1. National Cholesterol Education Program ATP III Guideline At-A-Glance Quick Desk Reference: National Heart, Lung, and Blood [place]. National Institutes of Health. 2001: NIH Publication No. 01-3305. 2. An International Atherosclerosis Society position paper: global recommendations for the management of dyslipidemia: executive summary, Atherosclerosis. 2014: 232(2):410-413. Cholesterol in VLDL [Mass/Vol] 15 mg/dL NINF - 30 mg/dL [facility] Cholesterol non HDL [Mass/Vol] 114 mg/dL NINF - 130 mg/dL [facility] Comment on above: <130 mg/dL, Optimal 130-159 mg/dL, Near optimal/above optimal 160-189 mg/dL, Borderline high 190-219 mg/dL, High >219 mg/dL, Very high Secondary prevention optimal non HDL Cholesterol levels are recommended to be <100 mg/dL Cholesterol.total/Cho lesterol in HDL [Mass ratio] 2.87 {ratio} NINF - 5.10 [facility] Fasting Time 12 hrs [facility] Triglyceride [Mass/Vol] 74 mg/dL NINF - 150 mg/dL [facility] Comment on above: <150 mg/dL, Normal 150-199 mg/dL, Borderline high 200-499 mg/dL, High >499 mg/dL, Very high No Panel Informationon 11-27 [facility] URIC ACIDon 11-28-2023 Urate [Mass/Vol] 5.3 mg/dL 2.5 - 6.6 mg/dL [facility] Urate [Mass/Vol]on Interpretation and review of laboratory results Normal [facility] VITAMIN B12on 11-28-2023 Cobalamin (Vitamin B12) [Mass/Vol] 382 pg/mL 232 - 1245 pg/mL [facility] ECG COMPLETEon 11-06-2023 Atrial Rate 69 BPM [facility] Calculated P [place] [address] [facility] Calculated R [place] -[address] [facility] Calculated T [place] [address] [facility] P-R Interval 172 ms [facility] QRS Duration 78 ms [facility] QT Interval 392 ms [facility] QTC Calculation (Bazett) 420 ms [facility] Ventricular Rate [address] [facility] NORMAL SINUS RHYTHM LEFT AXIS DEVIATION MINIMAL VOLTAGE CRITERIA FOR LVH, MAY BE NORMAL VARIANT SEPTAL MYOCARDIAL INFARCTION , AGE UNDETERMINED ABNORMAL ECG Confirmed by MD IVEY GREGORY () on 11/06/2023 9:43:03 AM [facility] [place] NAME : GABBY GUILLEN PID : [id number] : 1945 Gender : Female Race : ORD : [id number] Procedure Date : Nov 06 2023 09:18:14 Edit Date : Nov 06 2023 09:43:05 Diagnosis: NORMAL SINUS RHYTHM LEFT AXIS DEVIATION MINIMAL VOLTAGE CRITERIA FOR LVH, MAY BE NORMAL VARIANT SEPTAL MYOCARDIAL INFARCTION , AGE UNDETERMINED ABNORMAL ECG Confirmed by MD IVEY GREGORY () on 11/06/2023 9:43:03 AM Test Reason : Location : 136 : [place] Overread By : MD IVEY GREGORY Edited By : MD IVEY GREGORY Referred By : REINALDO CHOI Acquired by : tr, [facility] ALBUMIN/CREAT RATIO RND URon 03-27-2023 Albumin DL <= 20 mg/L (U) [Mass/Vol] [facility] Albumin/Creatinine (U) [Mass ratio] <30 mg/g [facility] Creatinine (U) [Mass/Vol] 144.2 mg/dL 20.0 - 300.0 mg/dL [facility] HbA1c (Bld)on 03-27-2023 Average glucose Estimated from glycated hemoglobin (Bld) [Mass/Vol] 103 mg/dL [facility] HbA1c (Bld) [Mass fraction] 5.2 % 4.3 - 5.6 % [facility] TSH BLDon 01-13-2023 TSH Qn 1.850 m[IU]/L 0.270 - 4.200 mIU/L [facility] VITAMIN B12 BLOODon 01-14-20 Cobalamin (Vitamin B12) [Mass/Vol] 410 pg/mL 232 - 1,245 pg/mL [facility] PEARL DIAGNOSTIC LTon 09-01-19 [facility] SURGICAL PATHOLOGYon 023 Case Report Surgical Pathology R eport Case: [id number] Authorizing Provider: Carmen Moody MD Collected: 08/08/2022 01:11 PM Ordering Location: Ambulatory Surgery Received: 08/08/2022 02:18 PM Pathologist: Rey Bullard MD Specimen: RECTAL POLYP [facility] FINAL DIAGNOSIS Rectum, polypectomy: - Fragments of tubular adenoma. [facility] Gross Description A. RECTAL POLYP Received in formalin are two pieces of adame, soft tissue aggregating to 0.5 x 0.3 x 0.2 cm. Totally submitted in one cassette. Gross examination performed at [facility], [address] [place] [id number] JT 08/09/2022 1:52 AM [facility] Performing Lab Diagnostic interpret ation performed at [facility], [facility] [place] [address] CLIA# [id number] Profiling Machine Set Up Operator Tool: Herson Claudio M.D. [facility] COLONOSCOPY SCREENINGon 07-14 [facility] PEARL SCREENINGon 07-20-2022 [facility] Basic metabolic 2000 panelon 07-18-2022 Anion gap [Moles/Vol] 11 mmol/L 9 - 18 mmol/L [facility] Calcium [Mass/Vol] 9.6 mg/dL 8.5 - 10. 2 mg/dL [facility] Chloride [Moles/Vol] 100 mmol/L 97 - 10 5 mmol/L [facility] CO2 [Moles/Vol] 27 mmol/L 22 - 30 mmol/L [facility] Creatinine [Mass/Vol] 0.85 mg/dL 0.58 - 0.96 mg/dL [facility] Estimated Glomerular Filtration Rate 71 mL/min/1.73m >=60 mL/min/1.73m [facility] Glucose [Mass/Vol] 104 mg/dL High 74 - 99 mg/dL [facility] Potassium [Moles/Vol] 4.3 mmol/L 3.7 - 5.1 mmol/L [facility] Sodium [Moles/Vol] 138 mmol/L 136 - 144 mmol/L [facility] Urea nitrogen [Mass/Vol] 15 mg/dL 7 - 21 mg/dL [facility] Basophil percentageon 2021 Basophil percentage < 0.9 mg/dL 0.55-1.02 [facility] Work Phone: No Panel Informationon 11-30 Bedside Estimated GFR (eGFR) > 60.0000 mL/min >60 [facility] Work Phone: Absolute lymphocyte counton 10-21-2021 Lymphocytes Auto (Unsp spec) [#/Vol] 2.10 10*3/uL 0.83-4.51 [facility] Work Phone: Atypical perinuclear antineu trophil cytoplasmic antibodies measurementon 10-21-2021 Neutrophil cytoplasmic Ab.perinuclear.atypic al IF (S) [Titer] <1:20 titer Neg:<1:20 [facility] Work Phone: [phone] Comment on above: The atypical pANCA p attern has been observed in asignificant percentage of patients with ulcerative colitis,primary sclerosing cholangitis and autoimmune hepatitis. Basophil percentageon 2021 Basophil percentage < 10.0 umol/L 11-32 [facility] Work Phone: Basophil percentage < 0.2 AI 0.0-0.9 [facility] Work Phone: Basophils/100 WBC (Bld) 0.2 % 0-1 [facility] Work Phone: Bilirubin [Mass/Vol] 0.90 mg/dL 0.20-1.00 [facility] Work Phone: Comment on above: For patients on eltr ombopag therapy, use of Dimension [place] TBIL is not recommended. Chloride [Moles/Vol] 105 mmol/L 98-107 [facility] Work Phone: Eosinophils/100 WBC (Bld) 2.2 % 0-5 [facility] Work Phone: Glucose [Mass/Vol] 98 mg/dL 74-106 [facility] Work Phone: Neutrophils (Bld) [#/Vol] 5.1 10*3/uL 2.0-7.7 [facility] Work Phone: Neutrophils/100 WBC (Bld) 63.7 % 47-70 [facility] Work Phone: Potassium [Moles/Vol] 4.3 mmol/L 3.5-5.1 [facility] Work Phone: Protein [Mass/Vol] 7.2 g/dL 6.4-8.2 [facility] Work Phone: Sodium [Moles/Vol] 138 mmol/L 136-145 [facility] Work Phone: WBC (Bld) [#/Vol] 8.0 10*3/uL 4.4-11.0 [facility] Work Phone: Blood erythrocytes count (nu mber/volume)on 10-21-2021 RBC (Bld) [#/Vol] 4.66 10*6/uL 4.2-5.4 [facility] Work Phone: Blood hemoglobin measurement (mass/volume)on 10-21-2021 Hemoglobin (Bld) [Mass/Vol] 13.7 g/dL 12.0-15.0 [facility] Work Phone: Blood lymphocytes/100 leukoc yteson 10-21-2021 Lymphocytes/100 WBC (Bld) 26.2 % 19-41 [facility] Work Phone: Blood monocytes/100 leukocyt eson 10-21-2021 Monocytes/100 WBC (Bld) 7.5 % 0-10 [facility] Work Phone: Blood platelet mean volumeon 10-21-2021 Platelet mean volume (Bld) [Entitic vol] 9.7 fL 6.2-12.0 [facility] Work Phone: [phone] Determination of erythrocyte mean corpuscular volume (MCV)on 10-21-2021 MCV (RBC) [Entitic vol] 89.9 fL 81-99 [facility] Work Phone: Erythrocyte sedimentation ra vinayak 10-21-2021 ESR (Bld) [Velocity] 15 mm/h 0-30 [facility] Work Phone: HIV 1 and HIV-2 antibody ass ay with HIV-1 p24 antigen detectionon 10-21-2021 HIV 1+2 Ab+HIV1 p24 Ag IA Ql Non-Reactive Nonreactive [facility] Work Phone: Hematocrit Auto (Bld) [Volum e fraction]on 10-21-2021 Hematocrit (Bld) [Volume fraction] 41.9 % 37-47 [facility] Work Phone: [phone] INR in Blood by Coagulation assayon 10-21-2021 INR Coag (Bld) [Relative time] 1.0 {INR} [facility] Work Phone: Laboratory - Chemistry and C hemistry - challengeon 10-21-2021 ALP [Catalytic activity/Vol] 93 U/L 45-117 [facility] Work Phone: ALT [Catalytic activity/Vol] 25 U/L 13-56 [facility] Work Phone: CO2 [Moles/Vol] 31.0 mmol/L 21.0-32.0 [facility] Work Phone: Globulin (S) [Mass/Vol] 3.6 g/dL 2.2-4.2 [facility] Work Phone: Urea nitrogen/Creatinine [Mass ratio] 14.3 mg/mg 10-20 [facility] Work Phone: Laboratory - Coagulationon 0 10-21-2021 PT Coag (PPP) [Time] 12.6 s 11.7-14.9 [facility] Work Phone: Laboratory - Hematology and Cell countson 10-21-2021 Erythrocyte distribution width (RBC) [Entitic vol] 44.4 fL 35.1-43.9 [facility] Work Phone: Erythrocyte distribution width (RBC) [Ratio] 13.6 % 11.6-14.6 [facility] Work Phone: Immature granulocytes/100 WBC (Bld) 0.200 % 0.0-0.9 [facility] Work Phone: Comment on above: IG% - Immature Granu locytes (promyelocytes, myelocytes and metamyelocytes) > 1% indicates that a LEFT SHIFT is Present. MCH (RBC) [Entitic mass] 29.4 pg 27.0-32.0 [facility] Work Phone: Nucleated RBC/100 WBC (Bld) [Ratio] 0 % 0-5 [facility] Work Phone: MCHC Auto (RBC) [Mass/Vol]on 10-21-2021 MCHC (RBC) [Mass/Vol] 32.7 g/dL 32-36 [facility] Work Phone: No Panel Informationon 10-21 Centromere B Antibody <0.2 AI 0.0-0.9 [facility] Work Phone: Ceruloplasmin 30.2 mg/dL 19.0-39.0 [facility] Work Phone: Estimated GFR (MDRD) Amer 77 mL/min >60 [facility] Work Phone: Comment on above: GFR Calc Estimated GFR (MDRD) Non-Af Amer 64 mL/min >60 [facility] Work Phone: Comment on above: Non- GFR Calc Haptoglobin 181 mg/dL 42-346 [facility] Work Phone: Comment on above: Performed at: [address] [id number] Director: Paulo Samano PhD, Phone: [phone] at: [facility] [id number] Director: Ru Maciel MD, Phone: [phone] Hepatitis A IgM Antibody Negative Negative [facility] Work Phone: Hepatitis B Core IgM Antibody Negative Negative [facility] Work Phone: Hepatitis C Antibody (EIA) <0.1 s/co ratio 0.0-0.9 [facility] Work Phone: Hepatitis C Antibody Comment Comment . [facility] Work Phone: Comment on above: NegativeNot infected with HCV, unless recent infection issuspected or other evidence exists to indicate HCVinfection. VOICE DATA COMMUNICATIONS ENGINEER Antibody 0.4 AI 0.0-0.9 [facility] Work Phone: Platelets bldon 10-21-2021 Platelets (Bld) [#/Vol] 308 10*3/uL 150-450 [facility] Work Phone: Serum DNA double strand anti body assay (units/volume)on 10-21-2021 DNA double strand Ab Qn (S) [IU]/mL 0-9 [facility] Work Phone: Comment on above: Negative <5 Equivoca l 5 - 9 Positive >9 Serum Erika-1 antibody assay (u nits/volume)on 10-21-2021 Erika-1 extractable nuclear Ab Qn (S) <0.2 AI 0.0-0.9 [facility] Work Phone: Serum Scl-70 extractable nuc lear antibody assay (units/volume)on 10-21-2021 SCL-70 extractable nuclear Ab Qn (S) <0.2 AI 0.0-0.9 [facility] Work Phone: Serum Nair extractable nucl ear antibody detectionon 10-21-2021 Nair extractable nuclear Ab Ql (S) <0.2 AI 0.0-0.9 [facility] Work Phone: Serum classic neutrophil cyt oplasmic antibody assay (units/volume)on 10-21-2021 Neutrophil cytoplasmic Ab.classic Qn (S) <1:20 titer Neg:<1:20 [facility] Work Phone: Serum mitochondria antibody detectionon 10-21-2021 Mitochondria Ab Ql (S) <20.0 Units 0.0-20.0 [facility] Work Phone: Comment on above: Negative 0.0 - 20.0 Equivocal 20.1 - 24.9 Positive >24.9Mitochondrial (M2) Antibodies are found in 90-96% ofpatients with primary biliary cirrhosis.Performed at: [address] [id number] Director: Paulo Samano PhD, Phone: [phone] Serum or plasma C reactive p rotein measurement (mass/volume)on 10-21-2021 CRP [Mass/Vol] 4.64 mg/L 0.0-3.0 [facility] Work Phone: Comment on above: C-Reactive Protein ( CRP) provides useful information for thediagnosis, therapy and monitoring of inflammatory processesand associated diseases. For the evaluation of Relative Riskfor Cardiovascular Disease, a High Sensitivity CRP (HSCRP)should be ordered. Serum or plasma actin IgG an tibody assay (units/volume)on 10-21-2021 Actin IgG Qn 5 Units 0-19 [facility] Work Phone: Comment on above: Negative 0 - 19 Weak positive 20 - 30 Moderate to strong positive >30 Actin Antibodies are found in 52-85% of patients with autoimmune hepatitis or chronic active hepatitis and in 22% of patients with primary biliary cirrhosis. Serum or plasma albumin chelo urement (mass/volume)on 10-21-2021 Albumin [Mass/Vol] 3.6 g/dL 3.2-5.0 [facility] Work Phone: Serum or plasma albumin/glob ulin mass ratioon 10-21-2021 Albumin/Globulin [Mass ratio] 1.0 {ratio} 0.9-2.4 [facility] Work Phone: Serum or plasma angiotensin converting enzyme measurement (enzymatic activity/volume)on 10-21-2021 Angiotensin converting enzyme [Catalytic activity/Vol] 39 U/L 14-82 [facility] Work Phone: Serum or plasma calcium chelo urement (mass/volume)on 10-21-2021 Calcium [Mass/Vol] 9.1 mg/dL 8.5-10.1 [facility] Work Phone: Serum or plasma creatinine m easurement (mass/volume)on 10-21-2021 Creatinine [Mass/Vol] 0.91 mg/dL 0.55-1.02 [facility] Work Phone: Comment on above: The validity of the calculated GFR & GFRAA in patients over 70 years has not been determined. Clinical correlation is essential. Serum or plasma ferritin apoorva surement (mass/volume)on 10-21-2021 Ferritin [Mass/Vol] 36 ng/mL 8-252 [facility] Work Phone: Serum or plasma hepatitis B virus surface antigen detection by immunoassayon 10-21-2021 HBV surface Ag IA Ql Negative Negative [facility] Work Phone: Serum or plasma urea nitroge n measurement (mass/volume)on 10-21-2021 Urea nitrogen [Mass/Vol] 13 mg/dL 7-18 [facility] Work Phone: Serum perinuclear neutrophil cytoplasmic antibody titer by immunofluorescenceon 10-21-2021 Neutrophil cytoplasmic Ab.perinuclear IF (S) [Titer] <1:20 titer Neg:<1:20 [facility] Work Phone: Comment on above: The presence of posi tive fluorescence exhibiting P-ANCA orC- ANCA patterns alone is not specific for the diagnosis ofWegener's Granulomatosis (WG) or microscopic polyangiitis.Decisions about treatment should not be based solely onANCA IFA results. The [employer] ANCA Group Consensusrecommends follow up testing of positive sera with both IN-3 and MPO-ANCA enzyme immunoassays. As many as 5% serumsamples are positive only by EIA. Ref. AM J Clin Adglib0368;111:507-513. Thin prep Papanicolaou smear with manual screeningon 10-21-2021 Thin prep Papanicolaou smear with manual screening 16 U/L 15-37 [facility] Work Phone: Thin prep Papanicolaou smear with manual screening 2 5-15 [facility] Work Phone: Thin prep Papanicolaou smear with manual screening 183 U/L 84-246 [facility] Work Phone: Thin prep Papanicolaou smear with manual screening 134 ug/dL 80-158 [facility] Work Phone: Comment on above: Detection Limit = 5 Whole blood hemoglobin A1c/t otal hemoglobin ratio (mass fraction)on 10-21-2021 HbA1c (Bld) [Mass fraction] 5.6 % 3.8-5.6 [facility] Work Phone: Comment on above: Normal < 5.7 % Predi abetic 5.7 - 6.4 % Diabetic >or= 6.5 % Please note range changes. No Panel Informationon 09-10 [facility] [address] 08-05-2020 VITOR Telephone (AKPRAD) TEJINDERGABBY PUENTES ( ) 1945 F Date Time Provider Department 08/05/20 ALAYNA REID (BERNICE, SASHCA)GIOVANNA During your visit today, we recorded the following information about you: Alayna Reid APRN.SASCHA CAICEDO 08/05/2020 9:37 AM Signed A gambling monitor was completed for evaluation of palpitations a fluttering feeling per patient. Please let the patient know results did not show any significant irregular rhythm. She had a minimum heart rate of 60 and average heart rate of 71. She had one fast run lasting 19 beats. I would not roving changer at this time. We can review further at her follow up appointment in September. Thank you, Alayna Reid APRN.SASCHA Choudhary Ma 08/05/2020 12:47 PM Signed Patient notified and verbalized understanding. Janet Choudhary Ma Allergies As of Date: 08/05/2020 Noted Allergy Reaction BIAXIN (CLARITHROMYCIN) 08/27/2007 2 - Rash METFORMIN 11/19/2009 6 - Diarrhea Comments: ER formulation caused symptoms at 1 tablet per day [id number] REDUCTASE INHIBIT*08/08/2012 5 - Intolerance Comments: myalgia and diarrhea Date Reviewed: 07/28/2020 Reviewed by: Alayna Morse Cnp) SASCHA Reid - Fully Assessed Reason for Visit: Results [95] Prescriptions as of 08/05/2020 Sig: SITAGLIPTIN 25 MG TABLET Take 1 tablet by mouth once d* AMLODIPINE 5 MG TABLET Take 2 tablets by mouth once * CLOTRIMAZOLE 1 % TOPICAL OINT* Apply to affected area twice * CLONIDINE HCL 0.1 MG TABLET Take 0.1 mg by mouth twice da* POTASSIUM CHLORIDE ER 10 MEQ * Take 10 mEq by mouth twice da* LOSARTAN 100 MG TABLET Take 1 tablet by mouth once d* CHOLECALCIFEROL (VITAMIN D3) * Take 1 capsule by mouth once * POTASSIUM CHLORIDE ER 10 MEQ * Take 1 capsule by mouth twice* * OMEPRAZOLE 20 MG CAPSULE,ROSIO* Take 1 capsule by mouth every* * FLUOXETINE 20 MG CAPSULE Take 1 capsule by mouth once * BLOOD SUGAR DIAGNOSTIC, DRUM-* TEST BLOOD SUGAR ONCE DAILY. * LANCETS TEST BLOOD SUGAR ONCE DAILY. * HYDROCHLOROTHIAZIDE 25 MG TAB* Take 1 tablet by mouth once d* HYDROCORTISONE 2.5 % TOPICAL * Apply to itching skin or derm* ASPIRIN 325 MG TABLET Take 1 tablet by mouth once d* CALCIUM CARB-VIT D3-MAGNESIUM* Take by mouth. 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] 04/01/2005 impingement syndrome right shoulder [M25.819] 04/01/2005 07/04/2005 ROTATOR CUFF SYND NOS [M71.9, M67.919] 04/01/2005 07/04/2005 AFTERCARE NOS [Z51.89] 04/29/2005 07/04/2005 SURGERY FOLLOWUP NOS [Z09] 04/29/2005 07/04/2005 Hereditary and idiopathic peripheral neuropathy*11/17/2005 05/26/2020 SPRAIN OF FOOT NOS [S93.609A] 11/17/2005 SHOULDER REGION DIS NEC [M25.819] 01/17/2006 01/17/2006 impingement syndrome [M25.819] 01/17/2006 CHRONIC RHINITIS [J31.0] 07/12/2006 SLEEP APNEA NOS [G47.30] 09/11/2006 IMPAIRED FASTING GLUCOSE [R73.09] 08/17/2007 FEMALE GENITAL SYMPTOMS NOS [N94.9] 08/27/2007 ABDOMINAL PAIN LLQ [R10.32] 08/27/2007 ABDOMINAL PAIN RLQ [R10.31] 08/27/2007 FEMALE STRESS INCONTINENCE [N39.3] 08/27/2007 URGE INCONTINENCE [N39.41] 08/27/2007 MASTODYNIA [N64.4] 08/27/2007 IRRITABLE COLON [K58.9] 08/27/2007 VIRAL WARTS NOS [B07.9] 08/29/2008 GENERAL OSTEOARTHROSIS [M15.9] 08/29/2008 PAIN IN LIMB [M79.609] 08/29/2008 ACQ DEFORMITY OF TOE NEC [M20.5X9] 09/12/2008 Uncontrolled type 2 diabetes mellitus with hype*04/01/2010 06/09/2020 Unspecified constipation [K59.00] 09/10/2010 Rectocele [N81.6] 09/10/2010 Folliculitis [L73.9] 09/15/2010 Acne vulgaris [L70.0] 09/15/2010 Other seborrheic dermatitis [L21.8] 09/15/2010 Other seborrheic keratosis [L82.1] 09/15/2010 Stucco keratoses [L85.1] 09/15/2010 Eczema intertrigo [L30.4] 09/15/2010 Xerosis cutis [L85.3] 09/15/2010 Actinic Damage//Sun-damaged skin [L57.8] 09/15/2010 Solar lentigines [L81.4] 09/15/2010 Telangiectasia [I78.1] 09/15/2010 DM (diabetes mellitus) (HCC) [E11.9] 09/28/2010 06/09/2020 Pruritus - disorder 02/23/2011 Cutaneous skin tags [L91.8] 02/23/2011 Plantar fascial fibromatosis [M72.2] 06/13/2011 Capsulitis [M77.9] 02/09/2012 Screening for cardiovascular condition [Z13.6] 07/13/2020 Palpitations [R00.2] 07/13/2020 Chest pain due to myocardial ischemia [I25.9] 07/13/2020 Encounter Status:Closed by ALAYNA REID CNP on 08/05/20 [facility] 07-30-2020 VITOR Telephone (AGCARDPOB ) GABBY GUILLEN ([id number]) 1945 F Date Time Provider Department 07/30/20 ALAYNA REID CNP)AGCARDPOB During your visit today, we recorded the following information about you: Alayna Balderas LPN 07/30/2020 8:05 AM Signed ----- Message from Alayna Morse Cnp) SASCHA Reid sent at 07/30/2020 7:45 AM EDT ----- Please call patient and notify her of normal results. Please let the patient know her BNP is within normal limits. This does not indicate volume overload and we do not need to start additional diuretic therapy at this time. Continue current medical regimen will discuss at next appointment. Alayna Balderas LPN 07/30/2020 8:08 AM Signed I called and left a detailed message with Alayna's response to BNP results and recommendations on 's personalized voice mail. [facility] phone number left on message for any questions. Alayna Balderas LPN Allergies As of Date: 07/30/2020 Noted Allergy Reaction BIAXIN (CLARITHROMYCIN) 08/27/2007 2 - Rash METFORMIN 11/19/2009 6 - Diarrhea Comments: ER formulation caused symptoms at 1 tablet per day [id number] REDUCTASE INHIBIT*08/08/2012 5 - Intolerance Comments: myalgia and diarrhea Date Reviewed: 07/28/2020 Reviewed by: Alayna Morse Cnp) SASCHA Ried - Fully Assessed Reason for Visit: Results [95] Prescriptions as of 07/30/2020 Sig: SITAGLIPTIN 25 MG TABLET Take 1 tablet by mouth once d* AMLODIPINE 5 MG TABLET Take 2 tablets by mouth once * CLOTRIMAZOLE 1 % TOPICAL OINT* Apply to affected area twice * CLONIDINE HCL 0.1 MG TABLET Take 0.1 mg by mouth twice da* POTASSIUM CHLORIDE ER 10 MEQ * Take 10 mEq by mouth twice da* LOSARTAN 100 MG TABLET Take 1 tablet by mouth once d* CHOLECALCIFEROL (VITAMIN D3) * Take 1 capsule by mouth once * POTASSIUM CHLORIDE ER 10 MEQ * Take 1 capsule by mouth twice* * OMEPRAZOLE 20 MG CAPSULE,ROSIO* Take 1 capsule by mouth every* * FLUOXETINE 20 MG CAPSULE Take 1 capsule by mouth once * BLOOD SUGAR DIAGNOSTIC, DRUM-* TEST BLOOD SUGAR ONCE DAILY. * LANCETS TEST BLOOD SUGAR ONCE DAILY. * HYDROCHLOROTHIAZIDE 25 MG TAB* Take 1 tablet by mouth once d* HYDROCORTISONE 2.5 % TOPICAL * Apply to itching skin or derm* ASPIRIN 325 MG TABLET Take 1 tablet by mouth once d* CALCIUM CARB-VIT D3-MAGNESIUM* Take by mouth. CLINDAMYCIN PHOSPHATE 1 % TOP* Apply to affected lesions or * ACCU-CHEK COMPACT PLUS CARE K* As directed Problem List As Of Date 07/30/2020 Noted Resolved ADJUSTMENT DISORDER WITH DEPRESSED MOOD [F43.21]03/17/2005 ASTHMA UNSPECIFIED [J45.909] 03/17/2005 HYPERLIPIDEMIA NEC/NOS [E78.5] 03/17/2005 Essential hypertension [I10] 03/17/2005 IMPAIRED FASTING GLUCOSE [R73.01] 03/17/2005 MYALGIA AND MYOSITIS NOS [[id number]] ESOPHAGEAL REFLUX [K21.9] More... 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 impingement syndrome right shoulder [M25.819] 04/01/2005 07/04/2005 ROTATOR CUFF SYND NOS [M71.9, M67.919] 04/01/2005 07/04/2005 AFTERCARE NOS [Z51.89] 04/29/2005 07/04/2005 SURGERY FOLLOWUP NOS [Z09] 04/29/2005 07/04/2005 Hereditary and idiopathic peripheral neuropathy*11/17/2005 05/26/2020 SPRAIN OF FOOT NOS [S93.609A] 11/17/2005 SHOULDER REGION DIS NEC [M25.819] 01/17/2006 01/17/2006 impingement syndrome [M25.819] 01/17/2006 CHRONIC RHINITIS [J31.0] 07/12/2006 SLEEP APNEA NOS [G47.30] 09/11/2006 IMPAIRED FASTING GLUCOSE [R73.09] 08/17/2007 FEMALE GENITAL SYMPTOMS NOS [N94.9] 08/27/2007 ABDOMINAL PAIN LLQ [R10.32] 08/27/2007 ABDOMINAL PAIN RLQ [R10.31] 08/27/2007 FEMALE STRESS INCONTINENCE [N39.3] 08/27/2007 URGE INCONTINENCE [N39.41] 08/27/2007 MASTODYNIA [N64.4] 08/27/2007 IRRITABLE COLON [K58.9] 08/27/2007 VIRAL WARTS NOS [B07.9] 08/29/2008 GENERAL OSTEOARTHROSIS [M15.9] 08/29/2008 PAIN IN LIMB [M79.609] 08/29/2008 ACQ DEFORMITY OF TOE NEC [M20.5X9] 09/12/2008 Uncontrolled type 2 diabetes mellitus with hype*04/01/2010 06/09/2020 Unspecified constipation [K59.00] 09/10/2010 Rectocele [N81.6] 09/10/2010 Folliculitis [L73.9] 09/15/2010 Acne vulgaris [L70.0] 09/15/2010 Other seborrheic dermatitis [L21.8] 09/15/2010 Other seborrheic keratosis [L82.1] 09/15/2010 Stucco keratoses [L85.1] 09/15/2010 Eczema intertrigo [L30.4] 09/15/2010 Xerosis cutis [L85.3] 09/15/2010 Actinic Damage//Sun-damaged skin [L57.8] 09/15/2010 Solar lentigines [L81.4] 09/15/2010 Telangiectasia [I78.1] 09/15/2010 DM (diabetes mellitus) (HCC) [E11.9] 09/28/2010 06/09/2020 Pruritus - disorder 02/23/2011 Cutaneous skin tags [L91.8] 02/23/2011 Plantar fascial fibromatosis [M72.2] 06/13/2011 Capsulitis [M77.9] 02/09/2012 Screening for cardiovascular condition [Z13.6] 07/13/2020 Palpitations [R00.2] 07/13/2020 Chest pain due to myocardial ischemia [I25.9] 07/13/2020 Encounter Status:Closed by ALAYNA BALDERAS on 07/30/20 [facility] 07-21-2020 VITOR Telephone (AGCARDPOB ) GABBY GUILLEN ( ) 1945 F Date Time Provider Department 07/21/20 ALAYNA REID (PATIENT AMBASSADOR, SASCHA)AGCARDPOB During your visit today, we recorded the following information about you: Alayna Reid APRN.SASCHA CAICEDO 07/21/2020 8:01 AM Signed Please let the patient know her stress testing was normal. Without suggestion of ischemia (blockage). I will see her in follow up next week in office if she has any further questions. Thank you! JM Gan Ma 07/21/2020 9:38 AM Signed LM for patient to contact office. Janet Salguero LPN 07/23/2020 1:02 PM Signed Pt notified AND verbalized understanding [facility] Allergies As of Date: 07/21/2020 Noted Allergy Reaction BIAXIN (CLARITHROMYCIN) 08/27/2007 2 - Rash METFORMIN 11/19/2009 6 - Diarrhea Comments: ER formulation caused symptoms at 1 tablet per day [id number] REDUCTASE INHIBIT*08/08/2012 5 - Intolerance Comments: myalgia and diarrhea Date Reviewed: 07/13/2020 Reviewed by: Alayna Samayoa (Cold Meat Cook Sascha) SASCHA Reid - Fully Assessed Reason for Visit: Results [95] Prescriptions as of 07/21/2020 Sig: SITAGLIPTIN 25 MG TABLET Take 1 tablet by mouth once d* AMLODIPINE 5 MG TABLET Take 2 tablets by mouth once * CLOTRIMAZOLE 1 % TOPICAL OINT* Apply to affected area twice * CLONIDINE HCL 0.1 MG TABLET Take 0.1 mg by mouth twice da* POTASSIUM CHLORIDE ER 10 MEQ * Take 10 mEq by mouth twice da* LOSARTAN 100 MG TABLET Take 1 tablet by mouth once d* CHOLECALCIFEROL (VITAMIN D3) * Take 1 capsule by mouth once * POTASSIUM CHLORIDE ER 10 MEQ * Take 1 capsule by mouth twice* * OMEPRAZOLE 20 MG CAPSULE,ROSIO* Take 1 capsule by mouth every* * FLUOXETINE 20 MG CAPSULE Take 1 capsule by mouth once * BLOOD SUGAR DIAGNOSTIC, DRUM-* TEST BLOOD SUGAR ONCE DAILY. * LANCETS TEST BLOOD SUGAR ONCE DAILY. * HYDROCHLOROTHIAZIDE 25 MG TAB* Take 1 tablet by mouth once d* HYDROCORTISONE 2.5 % TOPICAL * Apply to itching skin or derm* ASPIRIN 325 MG TABLET Take 1 tablet by mouth once d* CALCIUM CARB-VIT D3-MAGNESIUM* Take by mouth. CLINDAMYCIN PHOSPHATE 1 % TOP* Apply to affected lesions or * ACCU-CHEK COMPACT PLUS CARE K* As directed Problem List As Of Date 07/21/2020 Noted Resolved ADJUSTMENT DISORDER WITH DEPRESSED MOOD [F43.21]03/17/2005 ASTHMA UNSPECIFIED [J45.909] 03/17/2005 HYPERLIPIDEMIA NEC/NOS [E78.5] 03/17/2005 Essential hypertension [I10] 03/17/2005 IMPAIRED FASTING GLUCOSE [R73.01] 03/17/2005 MYALGIA AND MYOSITIS NOS [[id number]] ESOPHAGEAL REFLUX [K21.9] More... 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 impingement syndrome right shoulder [M25.819] 04/01/2005 07/04/2005 ROTATOR CUFF SYND NOS [M71.9, M67.919] 04/01/2005 07/04/2005 AFTERCARE NOS [Z51.89] 04/29/2005 07/04/2005 SURGERY FOLLOWUP NOS [Z09] 04/29/2005 07/04/2005 Hereditary and idiopathic peripheral neuropathy*11/17/2005 05/26/2020 SPRAIN OF FOOT NOS [S93.609A] 11/17/2005 SHOULDER REGION DIS NEC [M25.819] 01/17/2006 01/17/2006 impingement syndrome [M25.819] 01/17/2006 CHRONIC RHINITIS [J31.0] 07/12/2006 SLEEP APNEA NOS [G47.30] 09/11/2006 IMPAIRED FASTING GLUCOSE [R73.09] 08/17/2007 FEMALE GENITAL SYMPTOMS NOS [N94.9] 08/27/2007 ABDOMINAL PAIN LLQ [R10.32] 08/27/2007 ABDOMINAL PAIN RLQ [R10.31] 08/27/2007 FEMALE STRESS INCONTINENCE [N39.3] 08/27/2007 URGE INCONTINENCE [N39.41] 08/27/2007 MASTODYNIA [N64.4] 08/27/2007 IRRITABLE COLON [K58.9] 08/27/2007 VIRAL WARTS NOS [B07.9] 08/29/2008 GENERAL OSTEOARTHROSIS [M15.9] 08/29/2008 PAIN IN LIMB [M79.609] 08/29/2008 ACQ DEFORMITY OF TOE NEC [M20.5X9] 09/12/2008 Uncontrolled type 2 diabetes mellitus with hype*04/01/2010 06/09/2020 Unspecified constipation [K59.00] 09/10/2010 Rectocele [N81.6] 09/10/2010 Folliculitis [L73.9] 09/15/2010 Acne vulgaris [L70.0] 09/15/2010 Other seborrheic dermatitis [L21.8] 09/15/2010 Other seborrheic keratosis [L82.1] 09/15/2010 Stucco keratoses [L85.1] 09/15/2010 Eczema intertrigo [L30.4] 09/15/2010 Xerosis cutis [L85.3] 09/15/2010 Actinic Damage//Sun-damaged skin [L57.8] 09/15/2010 Solar lentigines [L81.4] 09/15/2010 Telangiectasia [I78.1] 09/15/2010 DM (diabetes mellitus) (HCC) [E11.9] 09/28/2010 06/09/2020 Pruritus - disorder 02/23/2011 Cutaneous skin tags [L91.8] 02/23/2011 Plantar fascial fibromatosis [M72.2] 06/13/2011 Capsulitis [M77.9] 02/09/2012 Screening for cardiovascular condition [Z13.6] 07/13/2020 Palpitations [R00.2] 07/13/2020 Chest pain due to myocardial ischemia [I25.9] 07/13/2020 Encounter Status:Closed by ALAYNA REID CNP on 07/21/20 [facility]2020 VITOR Telephone (AGCARDPOB ) GABBY GUILLEN ( ) 1945 F Date Time Provider Department 07/20/20 ALAYNA REID (BERNICE, SASCHA)AGCARDPOB During your visit today, we recorded the following information about you: Gadiel Lozano 07/20/2020 8:16 AM Signed ----- Message from Alayna JenningsCold Meat Cookalvaro Caicedo) SASCHA Reid sent at 07/20/2020 8:13 AM EST ----- Please call patient and notify them of normal results. Covid negative Gadiel Lozano 07/20/2020 8:18 AM Signed Called and left a voice mail with results per Alayna Reid CNP instructions. Instructed patient to call office back with any questions. Gadiel Lozano Allergies As of Date: 07/20/2020 Noted Allergy Reaction BIAXIN (CLARITHROMYCIN) 08/27/2007 2 - Rash METFORMIN 11/19/2009 6 - Diarrhea Comments: ER formulation caused symptoms at 1 tablet per day [id number] REDUCTASE INHIBIT*08/08/2012 5 - Intolerance Comments: myalgia and diarrhea Date Reviewed: 07/13/2020 Reviewed by: Alayna JenningsCold Meat Cook Sascha) SASCHA Reid - Fully Assessed Reason for Visit: Results [95] Prescriptions as of 07/20/2020 Sig: SITAGLIPTIN 25 MG TABLET Take 1 tablet by mouth once d* AMLODIPINE 5 MG TABLET Take 2 tablets by mouth once * CLOTRIMAZOLE 1 % TOPICAL OINT* Apply to affected area twice * CLONIDINE HCL 0.1 MG TABLET Take 0.1 mg by mouth twice da* POTASSIUM CHLORIDE ER 10 MEQ * Take 10 mEq by mouth twice da* LOSARTAN 100 MG TABLET Take 1 tablet by mouth once d* CHOLECALCIFEROL (VITAMIN D3) * Take 1 capsule by mouth once * POTASSIUM CHLORIDE ER 10 MEQ * Take 1 capsule by mouth twice* * OMEPRAZOLE 20 MG CAPSULE,ROSIO* Take 1 capsule by mouth every* * FLUOXETINE 20 MG CAPSULE Take 1 capsule by mouth once * BLOOD SUGAR DIAGNOSTIC, DRUM-* TEST BLOOD SUGAR ONCE DAILY. * LANCETS TEST BLOOD SUGAR ONCE DAILY. * HYDROCHLOROTHIAZIDE 25 MG TAB* Take 1 tablet by mouth once d* HYDROCORTISONE 2.5 % TOPICAL * Apply to itching skin or derm* ASPIRIN 325 MG TABLET Take 1 tablet by mouth once d* CALCIUM CARB-VIT D3-MAGNESIUM* Take by mouth. CLINDAMYCIN PHOSPHATE 1 % TOP* Apply to affected lesions or * ACCU-CHEK COMPACT PLUS CARE K* As directed Problem List As Of Date 07/20/2020 Noted Resolved ADJUSTMENT DISORDER WITH DEPRESSED MOOD [F43.21]03/17/2005 ASTHMA UNSPECIFIED [J45.909] 03/17/2005 HYPERLIPIDEMIA NEC/NOS [E78.5] 03/17/2005 Essential hypertension [I10] 03/17/2005 IMPAIRED FASTING GLUCOSE [R73.01] 03/17/2005 MYALGIA AND MYOSITIS NOS [[id number]] ESOPHAGEAL REFLUX [K21.9] More... 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 impingement syndrome right shoulder [M25.819] 04/01/2005 07/04/2005 ROTATOR CUFF SYND NOS [M71.9, M67.919] 04/01/2005 07/04/2005 AFTERCARE NOS [Z51.89] 04/29/2005 07/04/2005 SURGERY FOLLOWUP NOS [Z09] 04/29/2005 07/04/2005 Hereditary and idiopathic peripheral neuropathy*11/17/2005 05/26/2020 SPRAIN OF FOOT NOS [S93.609A] 11/17/2005 SHOULDER REGION DIS NEC [M25.819] 01/17/2006 01/17/2006 impingement syndrome [M25.819] 01/17/2006 CHRONIC RHINITIS [J31.0] 07/12/2006 SLEEP APNEA NOS [G47.30] 09/11/2006 IMPAIRED FASTING GLUCOSE [R73.09] 08/17/2007 FEMALE GENITAL SYMPTOMS NOS [N94.9] 08/27/2007 ABDOMINAL PAIN LLQ [R10.32] 08/27/2007 ABDOMINAL PAIN RLQ [R10.31] 08/27/2007 FEMALE STRESS INCONTINENCE [N39.3] 08/27/2007 URGE INCONTINENCE [N39.41] 08/27/2007 MASTODYNIA [N64.4] 08/27/2007 IRRITABLE COLON [K58.9] 08/27/2007 VIRAL WARTS NOS [B07.9] 08/29/2008 GENERAL OSTEOARTHROSIS [M15.9] 08/29/2008 PAIN IN LIMB [M79.609] 08/29/2008 ACQ DEFORMITY OF TOE NEC [M20.5X9] 09/12/2008 Uncontrolled type 2 diabetes mellitus with hype*04/01/2010 06/09/2020 Unspecified constipation [K59.00] 09/10/2010 Rectocele [N81.6] 09/10/2010 Folliculitis [L73.9] 09/15/2010 Acne vulgaris [L70.0] 09/15/2010 Other seborrheic dermatitis [L21.8] 09/15/2010 Other seborrheic keratosis [L82.1] 09/15/2010 Stucco keratoses [L85.1] 09/15/2010 Eczema intertrigo [L30.4] 09/15/2010 Xerosis cutis [L85.3] 09/15/2010 Actinic Damage//Sun-damaged skin [L57.8] 09/15/2010 Solar lentigines [L81.4] 09/15/2010 Telangiectasia [I78.1] 09/15/2010 DM (diabetes mellitus) (HCC) [E11.9] 09/28/2010 06/09/2020 Pruritus - disorder 02/23/2011 Cutaneous skin tags [L91.8] 02/23/2011 Plantar fascial fibromatosis [M72.2] 06/13/2011 Capsulitis [M77.9] 02/09/2012 Screening for cardiovascular condition [Z13.6] 07/13/2020 Palpitations [R00.2] 07/13/2020 Chest pain due to myocardial ischemia [I25.9] 07/13/2020 Encounter Status:Closed by GADIEL LOZANO on 07/20/20 [facility] Vital Signs Date Time Vital Sign Value Performing Clinician Facility 01-29-2025 11:03-0400 Diastolic blood pressure 76 mm[Hg] Rodrigo Salas MD Work Phone: [facility] 01-29-2025 11:03-0400 Heart rate 64 /min Rodrigo Salas MD Work Phone: [facility] 01-29-2025 11:03-0400 Systolic blood pressure 143 mm[Hg] Rodrigo Salas MD Work Phone: [facility] 01-29-2025 10:15-0400 Body mass index (BMI) [Ratio] 27.58 kg/m2 Rodrigo Salas MD Work Phone: [facility] 01-29-2025 10:15-0400 Body weight 64.05 kg Rodrigo Salas MD Work Phone: [facility] 01-29-2025 10:15-0400 Respiratory rate 16 /min Rodrigo Salas MD Work Phone: [facility] 10-29-2024 11:31-0400 Body mass index (BMI) [Ratio] 27.42 kg/m2 Rodrigo Salas MD Work Phone: [facility] 10-29-2024 11:31-0400 Body weight 63.69 kg Rodrigo Salas MD Work Phone: [facility] 10-29-2024 11:31-0400 Diastolic blood pressure 84 mm[Hg] Rodrigo Salas MD Work Phone: [facility] 10-29-2024 11:31-0400 Heart rate 65 /min Rodrigo Salas MD Work Phone: [facility] 10-29-2024 11:31-0400 Respiratory rate 16 /min Rodrigo Salas MD Work Phone: [facility] 10-29-2024 11:31-0400 SaO2% (BldA) [Mass fraction] 98 % Rodrigo Salas MD Work Phone: [facility] 10-29-2024 11:31-0400 Systolic blood pressure 134 mm[Hg] Rodrigo Salas MD Work Phone: [facility] 07-02-2024 10:25-0500 Body mass index (BMI) [Ratio] 27.19 kg/m2 Rodrigo Salas MD Work Phone: [facility] 07-02-2024 10:25-0500 Body weight 63.14 kg Rodrigo Salas MD Work Phone: [facility] 07-02-2024 10:25-0500 Diastolic blood pressure 76 mm[Hg] Rodrigo Salas MD Work Phone: [facility] 07-02-2024 10:25-0500 Heart rate 64 /min Rodrigo Salas MD Work Phone: [facility] 07-02-2024 10:25-0500 Respiratory rate 16 /min Rodrigo Salas MD Work Phone: [facility] 07-02-2024 10:25-0500 Systolic blood pressure 128 mm[Hg] Rodrigo Salas MD Work Phone: [facility] 06-19-2024 10:17-0500 Body height 152.4 cm Reinaldo Choi MD Work Phone: [facility] 06-19-2024 10:17-0500 Body mass index (BMI) [Ratio] 26.37 kg/m2 Reinaldo Choi MD Work Phone: [facility] 06-19-2024 10:17-0500 Body weight 61.24 kg Reinaldo Choi MD Work Phone: [facility] 06-19-2024 10:17-0500 Diastolic blood pressure 73 mm[Hg] Reinaldo Choi MD Work Phone: [facility] 06-19-2024 10:17-0500 Heart rate 65 /min Reinaldo Choi MD Work Phone: [facility] 06-19-2024 10:17-0500 Respiratory rate 16 /min Reinaldo Choi MD Work Phone: [facility] 06-19-2024 10:17-0500 SaO2% (BldA) [Mass fraction] 97 % Reinaldo Choi MD Work Phone: [facility] 06-19-2024 10:17-0500 Systolic blood pressure 130 mm[Hg] Reinaldo Choi MD Work Phone: [facility] 03-01-2024 08:58-0400 Body height 152.4 cm Rodrigo Salas MD Work Phone: [facility] 03-01-2024 08:58-0400 Body mass index (BMI) [Ratio] 26.6 kg/m2 Rodrigo Salas MD Work Phone: [facility] 03-01-2024 08:58-0400 Body weight 61.78 kg Rodrigo Salas MD Work Phone: [facility] 03-01-2024 08:58-0400 Diastolic blood pressure 72 mm[Hg] Rodrigo Salas MD Work Phone: [facility] 03-01-2024 08:58-0400 Heart rate 67 /min Rodrigo Salas MD Work Phone: [facility] 03-01-2024 08:58-0400 SaO2% (BldA) [Mass fraction] 96 % Rodrigo Salas MD Work Phone: [facility] 03-01-2024 08:58-0400 Systolic blood pressure 126 mm[Hg] Rodrigo Salas MD Work Phone: [facility] 11-28-2023 08:49-0400 Body mass index (BMI) [Ratio] 26.37 kg/m2 Rodrigo Salas MD Work Phone: [facility] 11-28-2023 08:49-0400 Body weight 61.24 kg Rodrigo Salas MD Work Phone: [facility] 11-28-2023 08:49-0400 Diastolic blood pressure 80 mm[Hg] Rodrigo Salas MD Work Phone: [facility] 11-28-2023 08:49-0400 Heart rate 67 /min Rodrigo Salas MD Work Phone: [facility] 11-28-2023 08:49-0400 Respiratory rate 16 /min Rodrigo Salas MD Work Phone: [facility] 11-28-2023 08:49-0400 Systolic blood pressure 124 mm[Hg] Rodrigo Salas MD Work Phone: [facility] 11-06-2023 09:15-0400 Body height 152.4 cm Reinaldo Choi MD Work Phone: [facility] 11-06-2023 09:15-0400 Body mass index (BMI) [Ratio] 26.48 kg/m2 Reinaldo Choi MD Work Phone: [facility] 11-06-2023 09:15-0400 Body weight 61.51 kg Reinaldo Choi MD Work Phone: [facility] 11-06-2023 09:15-0400 Diastolic blood pressure 79 mm[Hg] Reinaldo Choi MD Work Phone: [facility] 11-06-2023 09:15-0400 Heart rate 70 /min Reinaldo Choi MD Work Phone: [facility] 11-06-2023 09:15-0400 SaO2% (BldA) [Mass fraction] 97 % Reinaldo Choi MD Work Phone: [facility] 11-06-2023 09:15-0400 Systolic blood pressure 129 mm[Hg] Reinaldo Choi MD Work Phone: [facility] 03-27-2023 10:08-0500 Body weight 65.59 kg Deborah Older PATIENT AMBASSADOR.WALL CRANE OPERATOR Work Phone: [facility] 03-27-2023 10:08-0500 Diastolic blood pressure 78 mm[Hg] Deborah Older PATIENT AMBASSADOR.WALL CRANE OPERATOR Work Phone: [facility] 03-27-2023 10:08-0500 Heart rate 65 /min Deborah Older PATIENT AMBASSADOR.WALL CRANE OPERATOR Work Phone: [facility] 03-27-2023 10:08-0500 Respiratory rate 16 /min Deborah Older PATIENT AMBASSADOR.WALL CRANE OPERATOR Work Phone: [facility] 03-27-2023 10:08-0500 SaO2% (BldA) [Mass fraction] 96 % Deborah Older PATIENT AMBASSADOR.WALL CRANE OPERATOR Work Phone: [facility] 03-27-2023 10:08-0500 Systolic blood pressure 118 mm[Hg] Deborah Older PATIENT AMBASSADOR.WALL CRANE OPERATOR Work Phone: [facility] 03-13-2023 15:43-0400 Body weight 65.32 kg Reinaldo Choi MD Work Phone: [facility] 03-13-2023 15:43-0400 Diastolic blood pressure 70 mm[Hg] Reinaldo Choi MD Work Phone: [facility] 03-13-2023 15:43-0400 Heart rate 68 /min Reinaldo Choi MD Work Phone: [facility] 03-13-2023 15:43-0400 SaO2% (BldA) [Mass fraction] 97 % Reinaldo Choi MD Work Phone: [facility] 03-13-2023 15:43-0400 Systolic blood pressure 110 mm[Hg] Reinaldo Choi MD Work Phone: [facility] 02-24-2023 10:18-0400 Body weight 65.68 kg Deborah Older PATIENT AMBASSADOR.WALL CRANE OPERATOR Work Phone: [facility] 02-24-2023 10:18-0400 Diastolic blood pressure 60 mm[Hg] Deborah Older PATIENT AMBASSADOR.WALL CRANE OPERATOR Work Phone: [facility] 02-24-2023 10:18-0400 Heart rate 64 /min Deborah Older PATIENT AMBASSADOR.WALL CRANE OPERATOR Work Phone: [facility] 02-24-2023 10:18-0400 Respiratory rate 16 /min Deborah Older PATIENT AMBASSADOR.WALL CRANE OPERATOR Work Phone: [facility] 02-24-2023 10:18-0400 SaO2% (BldA) [Mass fraction] 98 % Deborah Older PATIENT AMBASSADOR.WALL CRANE OPERATOR Work Phone: [facility] 02-24-2023 10:18-0400 Systolic blood pressure 114 mm[Hg] Deborah Older PATIENT AMBASSADOR.WALL CRANE OPERATOR Work Phone: [facility] 01-12-2023 12:49-0400 Body weight 65.77 kg Deborah Older PATIENT AMBASSADOR.WALL CRANE OPERATOR Work Phone: [facility] 01-12-2023 12:49-0400 Diastolic blood pressure 72 mm[Hg] Deborah Older PATIENT AMBASSADOR.WALL CRANE OPERATOR Work Phone: [facility] 01-12-2023 12:49-0400 Heart rate 74 /min Deborah Older PATIENT AMBASSADOR.WALL CRANE OPERATOR Work Phone: [facility] 01-12-2023 12:49-0400 Respiratory rate 16 /min Deborah Older PATIENT AMBASSADOR.WALL CRANE OPERATOR Work Phone: [facility] 01-12-2023 12:49-0400 SaO2% (BldA) [Mass fraction] 98 % Deborah Older PATIENT AMBASSADOR.WALL CRANE OPERATOR Work Phone: [facility] 01-12-2023 12:49-0400 Systolic blood pressure 120 mm[Hg] Deborah Older PATIENT AMBASSADOR.WALL CRANE OPERATOR Work Phone: [facility] 10-13-2022 13:36-0400 Body height 152.4 cm Deisy Hanover PATIENT AMBASSADOR.WALL CRANE OPERATOR Work Phone: [facility] 10-13-2022 13:36-0400 Body weight 68.04 kg Deisy Olga PATIENT AMBASSADOR.WALL CRANE OPERATOR Work Phone: [facility] 10-13-2022 13:36-0400 Diastolic blood pressure 82 mm[Hg] Deisy Olga PATIENT AMBASSADOR.WALL CRANE OPERATOR Work Phone: [facility] 10-13-2022 13:36-0400 Heart rate 64 /min Deisy Hanover PATIENT AMBASSADOR.WALL CRANE OPERATOR Work Phone: [facility] 10-13-2022 13:36-0400 Respiratory rate 14 /min Deisy Hanover PATIENT AMBASSADOR.WALL CRANE OPERATOR Work Phone: [facility] 10-13-2022 13:36-0400 SaO2% (BldA) [Mass fraction] 98 % Deisy Hanover PATIENT AMBASSADOR.WALL CRANE OPERATOR Work Phone: [facility] 10-13-2022 13:36-0400 Systolic blood pressure 140 mm[Hg] Deisy Hanover PATIENT AMBASSADOR.WALL CRANE OPERATOR Work Phone: [facility] 10-11-2022 13:27-0400 Body height 152.4 cm Rodrigo Salas MD Work Phone: [facility] 10-11-2022 13:27-0400 Body temperature 98.1 [degF] Rodrigo Salas MD Work Phone: [facility] 10-11-2022 13:27-0400 Body weight 71.22 kg Rodrigo Salas MD Work Phone: [facility] 10-11-2022 13:27-0400 Diastolic blood pressure 60 mm[Hg] Rodrigo Salas MD Work Phone: [facility] 10-11-2022 13:27-0400 Heart rate 68 /min Rodrigo Salas MD Work Phone: [facility] 10-11-2022 13:27-0400 Respiratory rate 12 /min Rodrigo Salas MD Work Phone: [facility] 10-11-2022 13:27-0400 SaO2% (BldA) [Mass fraction] 96 % Rodrigo Salas MD Work Phone: [facility] 10-11-2022 13:27-0400 Systolic blood pressure 122 mm[Hg] Rodrigo Salas MD Work Phone: [facility] 08-16-2022 09:56-0400 Body temperature 96.69 [degF] Miya Carmen PA-C Work Phone: [facility] 08-16-2022 09:56-0400 Diastolic blood pressure 82 mm[Hg] Miya Carmen PA-C Work Phone: [facility] 08-16-2022 09:56-0400 Heart rate 67 /min Miya Yankee Hill PA-C Work Phone: [facility] 08-16-2022 09:56-0400 SaO2% (BldA) [Mass fraction] 97 % Miya Yankee Hill PA-C Work Phone: [facility] 08-16-2022 09:56-0400 Systolic blood pressure 114 mm[Hg] Miya Yankee Hill PA-C Work Phone: [facility] 08-08-2022 13:40-0400 Diastolic blood pressure 71 mm[Hg] Carmen Moody MD Work Phone: [facility] 08-08-2022 13:40-0400 Heart rate 69 /min Carmen Moody MD Work Phone: [facility] 08-08-2022 13:40-0400 Respiratory rate 16 /min Carmen Moody MD Work Phone: [facility] 08-08-2022 13:40-0400 SaO2% (BldA) [Mass fraction] 98 % Carmen Moody MD Work Phone: [facility] 08-08-2022 13:40-0400 Systolic blood pressure 156 mm[Hg] Carmen Moody MD Work Phone: [facility] 08-08-2022 12:28-0400 Body temperature 97.39 [degF] Carmen Moody MD Work Phone: [facility] 08-08-2022 12:28-0400 Body weight 70.8 kg Carmen Moody MD Work Phone: [facility] 07-18-2022 09:23-0500 Body height 152.4 cm Reinaldo Choi MD Work Phone: [facility] 07-18-2022 09:23-0500 Body weight 70.76 kg Reinaldo Choi MD Work Phone: [facility] 07-18-2022 09:23-0500 Diastolic blood pressure 90 mm[Hg] Reinaldo Choi MD Work Phone: [facility] 07-18-2022 09:23-0500 Heart rate 68 /min Reinaldo Choi MD Work Phone: [facility] 07-18-2022 09:23-0500 Respiratory rate 14 /min Reinaldo Choi MD Work Phone: [facility] 07-18-2022 09:23-0500 SaO2% (BldA) [Mass fraction] 96 % Reinaldo Choi MD Work Phone: [facility] 07-18-2022 09:23-0500 Systolic blood pressure 184 mm[Hg] Reinaldo Choi MD Work Phone: [facility] 07-12-2022 12:36-0500 Body height 152.4 cm Carmen Moody MD Work Phone: [facility] 07-12-2022 12:36-0500 Body temperature 97.5 [degF] Carmen Moody MD Work Phone: [facility] 07-12-2022 12:36-0500 Body weight 71.22 kg Carmen Moody MD Work Phone: [facility] 07-12-2022 12:36-0500 Diastolic blood pressure 60 mm[Hg] Carmen Moody MD Work Phone: [facility] 07-12-2022 12:36-0500 Heart rate 76 /min Carmen Moody MD Work Phone: [facility] 07-12-2022 12:36-0500 SaO2% (BldA) [Mass fraction] 96 % Carmen Moody MD Work Phone: [facility] 07-12-2022 12:36-0500 Systolic blood pressure 138 mm[Hg] Carmen Moody MD Work Phone: [facility] 07-11-2022 12:26-0500 Body weight 71.22 kg Rodrigo Salas MD Work Phone: [facility] 07-11-2022 12:26-0500 Diastolic blood pressure 86 mm[Hg] Rodrigo Salas MD Work Phone: [facility] 07-11-2022 12:26-0500 Heart rate 66 /min Rodrigo Salas MD Work Phone: [facility] 07-11-2022 12:26-0500 Respiratory rate 16 /min Rodrigo Salas MD Work Phone: [facility] 07-11-2022 12:26-0500 SaO2% (BldA) [Mass fraction] 95 % Rodrigo Salas MD Work Phone: [facility] 07-11-2022 12:26-0500 Systolic blood pressure 134 mm[Hg] Rodrigo Salas MD Work Phone: 1(159)069-262469 [place] [address] 07-05-2022 10:18-0500 Body height 152.[address] Rodrigo Salas Work Phone: 4(027)592-377632 [place] [address] 07-05-2022 10:18-0500 Body mass index (BMI) [Ratio] 30.8 kg/m2 Dr. Rodrigo Salas Work Phone: 2(238)781-538132 [place] [address] 07-05-2022 10:18-0500 Body weight 71.[address] Rodrigo Salas Work Phone: 9(720)781-841632 [place] [address] 07-05-2022 10:18-0500 Diastolic blood pressure 85 mm[Hg] Dr. Rodrigo Salas Work Phone: 3(993)671-715132 [place] [address] 07-05-2022 10:18-0500 Heart rate 68 /min Dr. Rodrigo Salas Work Phone: 8(576)154-210832 [place] [address] 07-05-2022 10:18-0500 SaO2% (BldA) [Mass fraction] 96 % Dr. Rodrigo Salas Work Phone: 4(944)158-761538 [place] [address] 07-05-2022 10:18-0500 Systolic blood pressure 147 mm[Hg] Dr. Rodrigo Salas Work Phone: 3(365)635-153338 [place] [address] 04-11-2022 09:08-0500 Body mass index (BMI) [Ratio] 32.2 kg/m2 Dr. Rodrigo Salas Work Phone: 1(250)478-304038 [place] [address] 04-11-2022 09:08-0500 Body weight 74.[address] Rodrigo Salas Work Phone: 9(637)235-284138 [place] [address] 04-11-2022 09:08-0500 Diastolic blood pressure 79 mm[Hg] Dr. Rodrigo Salas Work Phone: 9(742)365-574838 [place] [address] 04-11-2022 09:08-0500 Heart rate 66 /min Dr. Rodrigo Salas Work Phone: 4(470)019-304138 [place] [address] 04-11-2022 09:08-0500 SaO2% (BldA) [Mass fraction] 94 % Dr. Rodrigo Salas Work Phone: 9(057)671-053838 [place] [address] 04-11-2022 09:08-0500 Systolic blood pressure 154 mm[Hg] Dr. Rodrigo Salas Work Phone: 8(190)036-992438 [place] [address] 04-08-2022 11:27-0500 Body height 152.4 cm Rodrigo Salas MD Work Phone: 2(991)369-938069 [place] [address] 04-08-2022 11:27-0500 Body temperature 98.01 [degF] Rodrigo Salas MD Work Phone: 8(845)353-545769 [place] [address] 04-08-2022 11:27-0500 Body weight 73.94 kg Rodrigo Salas MD Work Phone: 9(700)902-004369 [place] [address] 04-08-2022 11:27-0500 Diastolic blood pressure 74 mm[Hg] Rodrigo Salas MD Work Phone: 2(150)993-484869 [place] [address] 04-08-2022 11:27-0500 Heart rate 71 /min Rodrigo Salas MD Work Phone: 8(486)101-760769 [place] [address] 04-08-2022 11:27-0500 Respiratory rate 12 /min Rodrigo Salas MD Work Phone: [facility] 04-08-2022 11:27-0500 SaO2% (BldA) [Mass fraction] 95 % Rodrigo Salas MD Work Phone: [facility] 04-08-2022 11:27-0500 Systolic blood pressure 130 mm[Hg] Rodrigo Salas MD Work Phone: [facility] 03-26-2022 11:17-0500 Body temperature 96.91 [degF] Osvaldo Hamilton MD Work Phone: [facility] 03-26-2022 11:17-0500 Body weight 74.93 kg Osvaldo Hamilton MD Work Phone: [facility] 03-26-2022 11:17-0500 Diastolic blood pressure 82 mm[Hg] Osvaldo Hamilton MD Work Phone: [facility] 03-26-2022 11:17-0500 Heart rate 64 /min Osvaldo Hamilton MD Work Phone: [facility] 03-26-2022 11:17-0500 Respiratory rate 18 /min Osvaldo Hamilton MD Work Phone: [facility] 03-26-2022 11:17-0500 SaO2% (BldA) [Mass fraction] 96 % Osvaldo Hamilton MD Work Phone: [facility] 03-26-2022 11:17-0500 Systolic blood pressure 152 mm[Hg] Osvaldo Hamilton MD Work Phone: [facility] 01-03-2022 13:40-0400 Diastolic blood pressure 92 mm[Hg] Reinaldo Choi MD Work Phone: [facility] 01-03-2022 13:40-0400 Systolic blood pressure 200 mm[Hg] Reinaldo Choi MD Work Phone: [facility] 01-03-2022 13:34-0400 Body weight 77.4 kg Reinaldo Choi MD Work Phone: [facility] 01-03-2022 13:34-0400 Heart rate 68 /min Reinaldo Choi MD Work Phone: [facility] 01-03-2022 13:34-0400 Respiratory rate 20 /min Reinaldo Choi MD Work Phone: [facility] 12-01-2021 08:47-0400 Body temperature 98 [degF] Dr. Rodrigo Salas Work Phone: [facility] Work Phone: 12-01-2021 08:47-0400 Diastolic blood pressure 70 mm[Hg] Dr. Rodrigo Salas Work Phone: [facility] Work Phone: 12-01-2021 08:47-0400 Heart rate 62 /min Dr. Rodrigo Salas Work Phone: [facility] Work Phone: 12-01-2021 08:47-0400 Respiratory rate 16 /min Dr. Rodrigo Salas Work Phone: [facility] Work Phone: 12-01-2021 08:47-0400 SaO2% (BldA) [Mass fraction] 94 % Dr. Rodrigo Salas Work Phone: [facility] Work Phone: 12-01-2021 08:47-0400 Systolic blood pressure 146 mm[Hg] Dr. Rodrigo Salas Work Phone: [facility] Work Phone: 12-01-2021 07:18-0400 Body height 152.[address] Rodrigo Salas Work Phone: [facility] Work Phone: 12-01-2021 07:18-0400 Body mass index (BMI) [Ratio] 34.4 kg/m2 Dr. Rodrigo Salas Work Phone: [facility] Work Phone: 12-01-2021 07:18-0400 Body weight [address] Rodrigo Salas Work Phone: [facility] Work Phone: 10-21-2021 14:51-0400 Body height 152.[address] Rodrigo Salas Work Phone: [facility] Work Phone: 10-21-2021 14:51-0400 Body mass index (BMI) [Ratio] 35.2 kg/m2 Dr. Rodrigo Salas Work Phone: [facility] Work Phone: 10-21-2021 14:51-0400 Body weight 81.[address] Rodrigo Salas Work Phone: [facility] Work Phone: 10-21-2021 14:51-0400 Diastolic blood pressure 74 mm[Hg] Dr. Rodrigo Salas Work Phone: [facility] Work Phone: 10-21-2021 14:51-0400 Heart rate 68 /min Dr. Rodrigo Salas Work Phone: [facility] Work Phone: 10-21-2021 14:51-0400 SaO2% (BldA) [Mass fraction] 93 % Dr. Rodrigo Salas Work Phone: [facility] Work Phone: 10-21-2021 14:51-0400 Systolic blood pressure 169 mm[Hg] Dr. Rodrigo Salas Work Phone: [facility] Work Phone: 10-04-2021 10:00-0400 Body temperature 98.29 [degF] Duncan West Jr., MD Work Phone: [facility] 10-04-2021 10:00-0400 Body weight 81.19 kg Duncan West Jr., MD Work Phone: [facility] 10-04-2021 10:00-0400 Diastolic blood pressure 82 mm[Hg] Duncan West Jr., MD Work Phone: [facility] 10-04-2021 10:00-0400 Heart rate 68 /min Duncan West Jr., MD Work Phone: [facility] 10-04-2021 10:00-0400 Respiratory rate 18 /min Duncan West Jr., MD Work Phone: [facility] 10-04-2021 10:00-0400 SaO2% (BldA) [Mass fraction] 98 % Duncan West Jr., MD Work Phone: [facility] 10-04-2021 10:00-0400 Systolic blood pressure 124 mm[Hg] Duncan West Jr., MD Work Phone: [facility] 09-09-2021 10:17-0400 Body weight 80.29 kg Rodrigo Salas MD Work Phone: [facility] 09-09-2021 10:17-0400 Diastolic blood pressure 80 mm[Hg] Rodrigo Salas MD Work Phone: [facility] 09-09-2021 10:17-0400 Heart rate 71 /min Rodrigo Salas MD Work Phone: [facility] 09-09-2021 10:17-0400 Respiratory rate 14 /min Rodrigo Salas MD Work Phone: [facility] 09-09-2021 10:17-0400 SaO2% (BldA) [Mass fraction] 98 % Rodrigo Salas MD Work Phone: [facility] 09-09-2021 10:17-0400 Systolic blood pressure 136 mm[Hg] Rodrigo Salas MD Work Phone: [facility] Encounters Encounter Date Encounter Type Care Provider Facility Start: 03-14-2025 End: 03-14-2025 ambulatory RODRIGO SALAS Facility:[facility] Start: 02-28-2025 ambulatory RODRIGO SALAS Facility:[facility] Start: 02-19-2025 End: 02-19-2025 ambulatory [facility]IGO [facility] Facility:[facility] Start: 02-12-2025 End: 02-12-2025 ambulatory [facility] Facility:[facility] Start: 01-29-2025 End: 01-29-2025 Office outpatient visit 25 minutes Rodrigo Salas MD Work Phone: [facility] [place] Comment on above: Type 2 diabetes bozena itus with diabetic peripheral angiopathy without gangrene, without long-term current use of insulin (HCC) (Primary Dx); Need for vaccination; Essential hypertension; Mixed hyperlipidemia; Benign breast lumps; Breast nodule; H/O lumpectomy; Metabolic dysfunction-associated steatotic liver disease (MASLD) Start: 01-29-2025 End: 01-29-2025 [facility] Start: 12-31-2024 End: 12-31-[address] Rodrigo Salas MD Work Phone: -Laboratory Start: 12-31-2024 End: 12-31-2024 Patient encounter procedure Alecia Padilla PA -Laboratory Work Phone: Start: 12-31-2024 End: 12-31-2024 Patient encounter procedure Alecia DONALD -[facility] Work Phone: Start: 12-31-2024 End: 12-31-[address] Rodrigo Salas MD Work Phone: -[facility] Start: 12-31-2024 End: 12-31-2024 ambulatory Alecia Padilla Facility:[facility] Start: 12-12-2024 End: 12-12-2024 Refill Rodrigo Salas MD Work Phone: [facility] [place] Comment on above: Med Change Request Start: 12-12-2024 End: 12-12-2024 Telephone encounter Rodrigo Salas MD Work Phone: [facility] [place] Comment on above: Pharmacy Call Start: 12-03-2024 End: 12-03-[address] Rodrigo Salas MD Work Phone: -Ultrasound [facility] Start: 12-03-2024 End: 12-03-2024 Patient encounter procedure Alecia Padilla PA -Ultrasound [facility] Work Phone: Start: 12-02-2024 End: 12-03-2024 Refill Reinaldo Choi MD Work Phone: Cardiology Comment on above: Refill Request Start: 11-21-2024 End: 11-21-2024 Refill Rodrigo Salas MD Work Phone: [facility] [place] Comment on above: Med Change Request Start: 10-29-2024 End: 10-30-2024 Telephone encounter Rodrigo Salas MD Work Phone: [facility] [place] Comment on above: Insurance Authorizat ion Appointment Start: 10-29-2024 End: 10-29-2024 Office outpatient visit 25 minutes Rodrigo Salas MD Work Phone: [facility] [place] Comment on above: Type 2 diabetes bozena itus with diabetic peripheral angiopathy without gangrene, without long-term current use of insulin (HCC) (Primary Dx); Coronary artery disease of [place] heart with stable angina pectoris, unspecified vessel or lesion type; Statin intolerance; Mixed hyperlipidemia; Essential hypertension; Gastroesophageal reflux disease without esophagitis; Fatty (change of) liver, not elsewhere classified; Obstructive sleep apnea (adult) (pediatric) Start: 10-29-2024 End: 10-29-2024 ambulatory RODRIGO SALAS Facility:[facility] Start: 10-18-2024 End: 10-22-2024 Refill Rodrigo Salas MD Work Phone: [facility] [place] Comment on above: Refill Request Start: 10-14-2024 End: 10-14-2024 Patient encounter procedure Kurt Cardona MD Work Phone: Orthopaedics Comment on above: Trigger thumb of rig ht hand (Primary Dx) Diabetic polyneuropa thy associated with type 2 diabetes mellitus (HCC) (Primary Dx); Ingrowing toenail of right foot; Pain in toe of left foot; Pain in toe of right foot Start: 10-14-2024 End: 10-14-2024 ambulatory KURT CARDONA Facility:[facility] Start: 09-23-2024 End: 11-23-2024 Follow-up encounter Deborah Fernandez APRN.CNP Work Phone: [facility] [place] Start: 09-19-2024 End: 09-19-2024 ambulatory [facility] Facility:[facility] Start: 09-16-2024 End: 09-16-2024 Patient encounter procedure Gretchen Vetovitz PA-C Work Phone: Orthopaedics Comment on above: Trigger thumb of rig ht hand (Primary Dx) Start: 09-16-2024 End: 09-16-2024 ambulatory GRETCHEN WARRENVITZ Facility:[facility] Start: 09-05-2024 End: 09-05-2024 ambulatory KURT CARDONA Facility:[facility] Start: 08-13-2024 End: 08-15-2024 Telephone encounter Gretchen Vetovitz PA-C Work Phone: Orthopaedics Comment on above: Schedule Surgery Start: 08-13-2024 End: 08-13-2024 Patient encounter procedure Gretchen Vetovitz PA-C Work Phone: Orthopaedics Comment on above: Trigger thumb of rig ht hand (Primary Dx); Primary osteoarthritis of both knees Start: 08-13-2024 End: 08-13-2024 ambulatory [facility] Facility:[facility] Start: 08-13-2024 End: 08-13-2024 Subsequent hospital visit by physician [facility] Work Phone: Radiology Comment on above: Pain of right hand [ M79.641] Start: 07-25-2024 End: 08-12-2024 Orders Only Gretchen Vetovitz PA-C Work Phone: Orthopaedics Comment on above: Left hand pain (Prim stefani Dx); Pain of right hand Start: 07-10-2024 End: 07-10-2024 Telephone encounter Rodrigo Salas MD Work Phone: [facility] [place] Comment on above: Orders (Isabela nordisk patient assistance) Start: 07-03-2024 End: 07-03-2024 ambulatory Alecia Padilla [facility] Start: 07-02-2024 End: 07-02-2024 ambulatory [facility] Facility:[facility] Start: 07-02-2024 End: 07-02-2024 Subsequent hospital visit by physician Sherron [facility] [place] Work Phone: Radiology Comment on above: Arthritis of carpome tacarpal (CMC) joint of left thumb [M18.12] Start: 07-02-2024 End: 07-02-2024 ambulatory [facility] Facility:[facility] Start: 07-02-2024 End: 07-02-2024 Office outpatient visit 25 minutes Rodrigo Salas MD Work Phone: [facility] [place] Comment on above: Type 2 diabetes bozena itus with diabetic peripheral angiopathy without gangrene, without long-term current use of insulin (HCC) (Primary Dx); Idiopathic esophageal varices without bleeding (HCC); Arthropathic psoriasis, unspecified (HCC); Arthritis of carpometacarpal (CMC) joint of left thumb Start: 06-19-2024 End: 06-19-2024 Patient encounter procedure Reinaldo Choi MD Work Phone: [facility] Cardiology [place] Comment on above: Essential hypertensi on (Primary Dx); Coronary artery disease involving [place] coronary artery of [place] heart without angina pectoris Start: 06-19-2024 End: 06-19-2024 ambulatory [facility] Facility:[facility] Start: 03-21-2024 End: 03-21-2024 ambulatory [facility] Comment on above: Weakness of lower ex tremity, unspecified laterality (Primary Dx); Weight loss; Frailty syndrome in geriatric patient Start: 03-16-2024 End: 03-19-2024 Refill Reinaldo Choi MD Work Phone: Cardiology Comment on above: Refill Request Start: 03-07-2024 End: 03-07-2024 Telephone encounter Rodrigo Salas MD Work Phone: [facility] [place] Comment on above: Orders (Isabela nordisk patient assistance) Start: 03-01-2024 End: 03-01-2024 Office outpatient visit 25 minutes Rodrigo Salas MD Work Phone: [facility] [place] Comment on above: Medicare annual well ness visit, subsequent (Primary Dx); Idiopathic esophageal varices without bleeding (HCC); Arthropathic psoriasis, unspecified (HCC); PAD (peripheral artery disease) (HCC); Diabetes mellitus type 2 (HCC); Screening for diabetic retinopathy; Weakness of lower extremity, unspecified laterality; Weight loss; Frailty syndrome in geriatric patient Start: 03-01-2024 End: 03-01-2024 Patient encounter procedure Rodrigo Salas MD Work Phone: [facility] Start: 02-23-2024 End: 02-23-2024 Telephone encounter Rodrigo Salas MD Work Phone: [facility] [place] Comment on above: ozempic (Medication assistance ) Start: 02-19-2024 End: 02-19-2024 Telephone encounter Rodrigo Salas MD Work Phone: [facility] [place] Comment on above: medication clarifica tion Start: 02-15-2024 End: 02-15-2024 Telephone encounter Reinaldo Choi MD Work Phone: Cardiology Comment on above: Results Start: 02-12-2024 End: 02-13-2024 Refill Rodrigo Salas MD Work Phone: [facility] [place] Comment on above: Refill Request Patient Assistance Start: 02-06-2024 End: 02-06-2024 Patient encounter procedure [facility] Provider [facility] Department Start: 02-01-2024 End: 02-01-2024 Patient encounter procedure [facility] Provider [facility] Department Start: 02-01-2024 End: 02-01-2024 Telephone encounter Reinaldo Choi MD Work Phone: [facility] Cardiology [place] Comment on above: Cardiac Clearance Start: 01-29-2024 End: 01-29-2024 Nursing evaluation of patient and report Nurse Card Admin [facility] Work Phone: Cardiology Comment on above: Coronary artery dise ase of [place] heart with stable angina pectoris, unspecified vessel or lesion type (HCC); Shortness of breath Start: 01-29-2024 End: 01-29-2024 Subsequent hospital visit by physician [facility] Work Phone: Nuclear Medicine Comment on above: Coronary artery dise ase of [place] heart with stable angina pectoris, unspecified vessel or lesion type (HCC) [I25.118] Start: 01-23-2024 End: 01-23-2024 ambulatory Nurse Card Admin [facility] Work Phone: Cardiology Comment on above: Stress Test Instruct ions for 01/29/24 Start: 01-23-2024 End: 01-23-2024 E-mail encounter from caregiver Nurse Card Admin [facility] Work Phone: Cardiology Start: 01-09-2024 End: 01-09-2024 ambulatory [facility] Facility:[facility] Start: 01-02-2024 End: 01-03-2024 Telephone encounter Reinaldo Choi MD Work Phone: [facility] Cardiology [place] Comment on above: Guinea Pig Breeder - O ther (ODILON Zamora) Start: 11-28-2023 Refill Reinaldo Choi MD Work Phone: Cardiology Comment on above: Refill Request Start: 11-28-2023 End: 11-28-2023 Office outpatient visit 25 minutes Rodrigo Salas MD Work Phone: [facility] [place] Comment on above: Statin intolerance ( Primary Dx); Diabetic mononeuropathy associated with diabetes mellitus due to underlying condition (HCC); Idiopathic esophageal varices without bleeding (HCC); Arthropathic psoriasis, unspecified (HCC); PAD (peripheral artery disease) (HCC); Controlled type 2 diabetes mellitus without complication, without long-term current use of insulin (HCC); Gout of big toe; Vitamin D deficiency; Vitamin B12 deficiency Start: 11-13-2023 Telephone encounter Reinaldo Choi MD Work Phone: Cardiology Comment on above: Patient Update (Medi cation change) Start: 11-06-2023 End: 11-06-2023 Patient encounter procedure Reinaldo Choi MD Work Phone: Cardiology Comment on above: Essential hypertensi on (Primary Dx); Mixed hyperlipidemia; Coronary artery disease of [place] heart with stable angina pectoris, unspecified vessel or lesion type (HCC); Shortness of breath; PAD (peripheral artery disease) (HCC) Start: 07-20-2023 Telephone encounter Rodrigo tripathi MD Work Phone: [facility] [place] Comment on above: Orders Start: 03-27-2023 End: 03-27-2023 Patient encounter procedure Deborah Fernandez APRN.WALL CRANE OPERATOR Work Phone: Internal Medicine [place] Comment on above: Controlled type 2 di abetes mellitus without complication, without long-term current use of insulin (HCC) (Primary Dx); Other chronic pain; Anxiety and depression; Encounter for immunization Start: 03-13-2023 End: 03-13-2023 Patient encounter procedure Reinaldo Choi MD Work Phone: Cardiology Comment on above: PAD (peripheral lenore ry disease) ([facility]) (Primary Dx); Essential hypertension; Mixed hyperlipidemia; 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 stable angina pectoris (HCC) Start: 02-24-2023 End: 02-24-2023 Patient encounter procedure Deborah Fernandez APRN.CNP Work Phone: [facility] [place] Comment on above: Other chronic pain ( Primary Dx); Anxiety and depression; Migraine with aura and without status migrainosus, not intractable Start: 02-03-2023 Refill Deborah Fernandez APRN, .CNP Work Phone: [facility] [place] Comment on above: Refill Request Start: 01-13-2023 Telephone encounter Karey rice PA-C Work Phone: Family Medicine [place] Comment on above: Results Appointment; Patient Update Start: 01-12-2023 End: 01-12-2023 Patient encounter procedure Deborah Fernandez APRN.CNP Work Phone: [facility] [place] Comment on above: Acute nonintractable headache, unspecified headache type (Primary Dx); Chest pain, unspecified type; Dyspnea on exertion; Other fatigue; Chronic sinusitis, unspecified location; Coronary artery disease of [place] heart with stable angina pectoris, unspecified vessel or lesion type ([facility]); Essential hypertension; Controlled type 2 diabetes mellitus without complication, without long-term current use of insulin ([facility]) Start: 12-01-2022 Refill Reinaldo Choi MD Work Phone: Cardiology Comment on above: Refill Request Start: 10-17-2022 Telephone encounter Deisy gooden PATIENT AMBASSADOR.WALL CRANE OPERATOR Work Phone: OB/Gynecology Comment on above: Results Start: 10-13-2022 End: 10-13-2022 Patient encounter procedure Deisy Espinoza PATIENT AMBASSADOR.WALL CRANE OPERATOR Work Phone: OB/Gynecology Comment on above: Vulvar irritation (P rimary Dx); Vaginal pain; Bladder prolapse, female, acquired Start: 10-11-2022 End: 10-11-2022 Patient encounter procedure Rodrigo Salas MD Work Phone: [facility] [place] Comment on above: Vaginal pain (Primar y Dx); Bladder prolapse, female, acquired; Essential hypertension Start: 09-26-2022 Orders Only Reinaldo Choi MD Work Phone: Cardiology Start: 09-13-2022 Refill Reinaldo Choi MD Work Phone: Cardiology Comment on above: Refill Request Start: 09-13-2022 Refill Alayna moss PATIENT AMBASSADOR.WALL CRANE OPERATOR Work Phone: Cardiology Comment on above: Med Change Request Start: 08-31-2022 End: 08-31-2022 Subsequent hospital visit by physician Diagnostic Mammo [facility] Mammogram Comment on above: Abnormal mammogram [ R92.8] Start: 08-16-2022 End: 08-16-2022 Patient encounter procedure Miya Morales PA-C Work Phone: General Surgery Comment on above: History of colonic p olyps (Primary Dx); Tubular adenoma Start: 08-09-2022 Refill Reinaldo Choi MD Work Phone: Cardiology Comment on above: Refill Request Start: 08-08-2022 End: 08-08-2022 Subsequent hospital visit by physician Carmen Moody MD Work Phone: Ambulatory Surgery Comment on above: Special screening fo r malignant neoplasms, colon [Z12.11] Start: 07-28-2022 Telephone encounter Rosmery Smith MD Work Phone: Mammography Comment on above: Mammogram Result Norberto l Back Start: 07-20-2022 End: 07-20-2022 Subsequent hospital visit by physician Screen Mammo [facility] Mammogram Comment on above: Breast cancer screen ing by mammogram [Z12.31] Start: 07-18-2022 End: 07-18-2022 Patient encounter procedure Reinaldo Choi MD Work Phone: Cardiology Comment on above: Essential hypertensi on (Primary Dx); Mixed hyperlipidemia; Coronary artery disease of [place] heart with stable angina pectoris, unspecified vessel or lesion type (HCC); Renovascular hypertension Start: 07-16-2022 Refill Rodrigo Ireland Work Phone: Internal Medicine [place] Comment on above: Refill Request Start: 07-12-2022 End: 07-12-2022 Patient encounter procedure Carmen Moody MD Work Phone: General Surgery Comment on above: Multiple skin nodule s Start: 07-11-2022 End: 07-11-2022 Patient encounter procedure Rodrigo Salas MD Work Phone: [facility] Medicine [place] Comment on above: Breast cancer screen ing by mammogram (Primary Dx); Essential hypertension; Controlled type 2 diabetes mellitus without complication, without long-term current use of insulin (HCC); Multiple skin nodules; Idiopathic esophageal varices without bleeding (HCC); Coronary artery disease of [place] heart with stable angina pectoris, unspecified vessel or lesion type (HCC); Arthropathic psoriasis, unspecified (HCC) Start: 07-08-2022 End: 07-08-[address] Rodrigo Salas Work Phone: [facility] Work Phone: Start: 07-08-2022 End: 07-08-[address] Rodrigo Salas Work Phone: [facility] Start: 07-05-2022 End: 07-05-[address] Rodrigo Salas Work Phone: [facility] Start: 05-23-2022 End: 05-23-2022 Patient encounter procedure Liudmila Tavarezelizabeth Work Phone: Podiatry Comment on above: Diabetic mononeuropa thy associated with diabetes mellitus due to underlying condition (HCC) (Primary Dx); Diminished pulses in lower extremity; Hallux rigidus of right foot Start: 05-03-2022 Telephone encounter Duncan West MD Work Phone: Neurology Comment on above: Patient Update Start: 04-11-2022 End: 04-11-[address] Rodrigo Salas Work Phone: [facility] Start: 04-08-2022 End: 04-08-2022 Patient encounter procedure Rodrigo Salas MD Work Phone: Internal Medicine [place] Comment on above: Decreased hearing of left ear (Primary Dx); Controlled type 2 diabetes mellitus without complication, without long-term current use of insulin (HCC); Mixed hyperlipidemia; Essential hypertension Start: 03-26-2022 End: 03-26-2022 Patient encounter procedure Osvaldo Hamilton MD Work Phone: [place] [facility] Comment on above: Non-recurrent acute suppurative otitis media of both ears without spontaneous rupture of tympanic membranes (Primary Dx); URI, acute Start: 01-25-2022 Telephone encounter Duncan West MD Work Phone: Neurology Comment on above: CPAP Supplies Start: 01-17-2022 Telephone encounter Rodrigo tripathi MD Work Phone: Internal Medicine [place] Comment on above: Results Start: 01-03-2022 End: 01-03-2022 Patient encounter procedure Reinaldo Choi MD Work Phone: Cardiology Comment on above: Obesity, Class I, BM I 30-34.9 (Primary Dx); Mixed hyperlipidemia; Essential hypertension; Coronary artery disease of [place] heart with stable angina pectoris, unspecified vessel or lesion type (HCC) Start: 12-01-2021 Non-patient / Non-visit Dr. Leticia Salas Work Phone: [facility] Start: 12-01-2021 End: 12-01-2021 Admission to same day surgery center Dr. Rodrigo Salas Work Phone: [facility]-Endoscopy Start: 11-30-[address] Rodrigo Salas Work Phone[facility] Start: 11-10-2021 End: 11-10-[address] Rodrigo Salas Work Phone: [facility]-Ultrasound, [facility] Start: 11-09-2021 End: 11-09-[address] Rodrigo Salas Work Phone: [facility]-Nuclear Medicine, [facility] [facility] Start: 11-04-2021 Refill Reinaldo Choi MD Work Phone: [facility] Comment on above: Refill Request Start: 11-01-2021 Refill Reinaldo Choi MD Work Phone: [facility] Comment on above: Opened In Error Start: 10-29-2021 End: 10-29-[address] Rodrigo Salas Work Phone: [facility] Start: 10-21-2021 End: 10-21-[address] Rodrigo Salas Work Phone: [facility] Start: 10-21-2021 End: 10-21-[address] Rodrigo Salas Work Phone: [facility] Start: 10-04-2021 End: 10-04-2021 Patient encounter procedure Duncan West MD Work Phone: Neurology Comment on above: ESTRELLITA (obstructive sle ep apnea) (Primary Dx); Chronic insomnia; Obstructive sleep apnea (adult) (pediatric) Start: 09-10-2021 Telephone encounter Deborah Fernandez APRN.CNP Work Phone: [facility] [place] Comment on above: Results Start: 09-10-2021 End: 09-10-2021 Subsequent hospital visit by physician [facility] Work Phone: Radiology Comment on above: Idiopathic esophagea l varices without bleeding (HCC) [I85.00] Start: 09-09-2021 End: 09-09-2021 Patient encounter procedure Rodrigo Salas MD Work Phone: [facility] [place] Comment on above: Mixed hyperlipidemia (Primary Dx); Essential hypertension; Burning with urination; Controlled type 2 diabetes mellitus without complication, without long-term current use of insulin (HCC); Idiopathic esophageal varices without bleeding (HCC) Start: 08-12-2021 Telephone encounter Rodrigo tripathi MD Work Phone: [facility] [place] Comment on above: Medication Problem; Insurance Authorization Procedures Date Procedure Procedure Detail Performing Clinician Start: 12-03-2024 Ul[address]ound elastography of liver Dr[address] Steve Salas MD Work Phone: Start: 01-29-2024 Myocardial spect multiple studies Reinaldo Choi MD Work Phone: Start: 11-06-2023 Ecg routine ecg w/least 12 lds i&r only Reinaldo Choi MD Work Phone: Start: 03-27-2023 INFLUENZA VACCINE, PRSV FREE, AGE 65+ YR, HIGH DOSE, QUADRIVALENT (FLUZONE HIGH-DOSE) Deborah Fernandez APRN.WALL CRANE OPERATOR Work Phone: Start: 08-31-2022 Diagnostic mammography computer-aided detcj uni Rodrigo Salas MD Work Phone: Start: 08-08-2022 Level iv surg pathology gross&microscopic exam Carmen Moody MD Work Phone: Start: 08-08-2022 Colonoscopy flx dx w/collj spec when pfrmd Miya Morales PA-C Work Phone: Start: 08-08-2022 Colonoscopy Reinaldo Choi MD Work Phone: Start: 07-20-2022 Screening mammography bi 2-view breast inc cad Rodrigo Salas MD Work Phone: Start: 07-08-[address] Rodrigo Salas Work Phone: Start: 07-08-[address] Rodrigo graham Work Phone: Start: 12-01-[address] Rodrigo graham Work Phone: Start: 11-30-2021 CT of thorax with contrast Dr. Rodrigo graham Work Phone: Start: 11-10-[address] Rodrigo graham Work Phone: Start: 11-10-[address] Rodrigo Salas Work Phone: Start: 11-09-2021 Radionuclide gastric emptying study Dr. Rodrigo Salas Work Phone: Start: 10-29-2021 Computed tomography of abdomen and pelvis with contrast Dr. Rodrigo Salas Work Phone: Start: 10-03-2021 Adult depression screening assessment Duncan West Jr., MD Work Phone: Start: 09-10-2021 Us abdominal real time w/image limited Rodrigo Salas MD Work Phone: Start: 09-02-2021 Adult depression screening assessment Rodrigo Salas MD Work Phone: Start: 07-26-2021 Adult depression screening assessment Rodrigo Salas MD Work Phone: Start: 07-07-2021 Colonoscopy Rodrigo Salas MD Work Phone: Plan of Treatment Date Care Activity Detail Author Start: 08-09-2027 Colonoscopy COLONOSCOPY [facility] Start: 08-09-2027 COLORECTAL CANCER SCREENING COLORECTAL CANCER SCREENING [facility] Start: 08-09-2027 Screening for malignant neoplasm of colon [facility] Start: 01-29-2026 Annual PCP Team Chronic Disease Visit Annual PCP Team Chronic Disease Visit [facility] Start: 10-29-2025 Annual PCP Team Chronic Disease Visit Annual PCP Team Chronic Disease Visit [facility] Start: 10-14-2025 Diabetic foot examination Diabetic Foot Exam [facility] Start: 10-13-2025 End: 10-13-2025 Patient encounter procedure 10/13/2025 10:00 AM EDT Office Visit Podiatry [address] [place] [phone] Liudmila Norris [address] [place] [id number] 1 year follow up Podiatry Comment on above: 1 year follow up Start: 09-19-2025 Hepatitis B surface antibody level LDL Cholesterol [facility] Start: 07-03-2025 Hemoglobin A1c measurement HbA1C [facility] Start: 07-02-2025 Annual PCP Team Chronic Disease Visit Annual PCP Team Chronic Disease Visit [facility] Start: 07-02-2025 BP Controlled (<130/80) BP Controlled (<130/80) [facility] in Start: 07-02-2025 Covid-19 Vaccine () Covid-19 Vaccine () [facility] Comment on above: Postponed from 01/14/2024 (Declined at t his time) Start: 07-02-2025 zzBP Controlled (<130/80) (Retired) zzBP Controlled (<130/80) (Retired) [facility] Start: 06-16-2025 End: 06-16-2025 Patient encounter procedure 06/16/2025 9:20 AM EST Office Visit Cardiology [address] [place] [phone] Reinaldo Choi MD [address], [address] [place], [place] [id number] Patient may benefit from Rep[facility] Injections Cardiology Comment on above: Patient may benefit from Repatha Injecti ons Start: 06-02-2025 End: 06-02-2025 Patient encounter procedure 06/02/2025 11:00 AM EST Office Visit [facility] Medicine [place] [address] [place] [address] Deborah Fernandez APRN.WALL CRANE OPERATOR [address] [place] [address] 4 mo follow up [facility] [place] Comment on above: 4 mo follow up Start: 03-22-2025 Hemoglobin A1c measurement HbA1C [facility] Start: 03-01-2025 Annual PCP Team Chronic Disease Visit Annual PCP Team Chronic Disease Visit [facility] Start: 03-01-2025 BP Controlled (<130/80) BP Controlled (<130/80) [facility] Start: 03-01-2025 Hepatitis B screening Urine Albumin:Creatinine Ratio [facility] Start: 02-19-2025 End: 02-19-2025 Patient encounter procedure Mammogram Comment on above: Dx: Breast nodule [N63.0]; H/O lumpectom y [Z98.890] Start: 02-12-2025 End: 02-12-2025 Patient encounter procedure 02/12/2025 2:20 PM EDT Office Visit [facility] [place] [address] [place], [place] [id number] Reinaldo Choi MD [address], [address] [place] [address] HLD, PCP ordered Repatha [facility] Comment on above: HLD, PCP ordered Repatha Start: 01-29-2025 End: 01-29-2025 Patient encounter procedure 01/29/2025 10:00 AM EDT Office Visit Internal Medicine [place] [address] [place] [address] Rodrigo Salas MD [address] [place], [place] [address] medicare wellness [facility] [place] Comment on above: medicare wellness Start: 01-13-2025 Influenza [facility] Start: 11-27-2024 Annual PCP Team Chronic Disease Visit Annual PCP Team Chronic Disease Visit [facility] Start: 11-27-2024 Hepatitis B surface antibody level LDL Cholesterol [facility] Start: 11-05-2024 BP Controlled (<130/80) BP Controlled (<130/80) [facility] in Start: 10-29-2024 End: 10-29-2024 Patient encounter procedure 10/29/2024 11:20 AM EDT Office Visit Internal Medicine [place] [address] [place] [address] Rodrigo Salas MD [address] [place] [address] 4 month follow up [facility] [place] Comment on above: 4 month follow up Start: 10-14-2024 End: 10-14-2024 Patient encounter procedure Podiatry Comment on above: 1 yr diabetic foot care f/u Post op right trigge r thumb release Start: 09-16-2024 End: 09-16-2024 Patient encounter procedure 09/16/2024 10:30 AM EDT Office Visit Orthopaedics [address] [place] [address] Gretchen Garcia PA-C [address] [place] [address] Post op right trigger thumb release Orthopaedics Comment on above: Post op right trigger thumb release Start: 09-05-2024 End: 09-05-2024 Admission to same day surgery center 09/05/2024 12:49 PM EDT - 09/05/2024 1:36 PM EDT Surgery Ambulatory Surgery [address] [place] [address] Kurt Cardona MD [address] [place] [address] RELEASE TRIGGER THUMB Ambulatory Surgery Comment on above: RELEASE TRIGGER THUMB Start: 09-05-2024 Subsequent hospital visit by physician 09/05/2024 12:49 PM EDT Hospital Encounter Ambulatory Surgery [address] [place], [place] [phone] Kurt Cardona MD [address] [place] [address] Trigger thumb of right hand [M65.311] Ambulatory Surgery Comment on above: Trigger thumb of right hand [M65.311] Start: 09-05-2024 End: 09-05-2024 Tendon sheath incision RELEASE TRIGGER THUMB Trigger thumb of right hand 09/05/2024 12:49 PM EDT [facility] [place] [facility] Start: 08-13-2024 End: 08-13-2024 Patient encounter procedure Orthopaedics Comment on above: Arthritis of carpometacarpal (CMC) joint of left thumb [M18.12] R hand/thumb Start: 07-02-2024 End: 07-02-2024 Patient encounter procedure 07/02/2024 9:40 AM EST Office Visit Internal Medicine [place] [address] [place], [place] [phone] Rodrigo Salas MD [address] [place] [address] follow up [facility] [place] Comment on above: follow up Start: 05-30-2024 Hemoglobin A1c measurement HbA1C [facility] Start: 05-24-2024 Diabetic foot examination Diabetic Foot Exam [facility] Start: 05-22-2024 Annual PCP Team Chronic Disease Visit Annual PCP Team Chronic Disease Visit [facility] Start: 05-22-2024 BP Controlled (<130/80) BP Controlled (<130/80) [facility] Start: 05-20-2024 End: 05-20-2024 Patient encounter procedure 05/20/2024 9:00 AM EST Office Visit Cardiology [address] [place] [phone] Reinaldo Choi MD [address], [address] [place] [address] 6 month follow up Cardiology Comment on above: 6 month follow up Start: 05-15-2024 Advance Directive Discussion Advance Directive Discussion [facility] Start: 05-15-2024 Medicare Advantage Annual Wellness Visit Medicare Advantage Annual Wellness Visit [facility] Start: 05-06-2024 End: 05-06-2024 ambulatory 05/06/2024 9:45 AM EST OT/PT/Speech Visit [facility] [address] [place] [address] Bowen Rodriguez PT R29.898 (ICD-10-CM) - Weakness of lower extremity, unspecified laterality [facility] Comment on above: R29.898 (ICD-10-CM) - Weakness of lower extremity, unspecified laterality Start: 03-27-2024 3 comp foot exam completed Diabetic Foot Exam [facility] Start: 03-27-2024 Annual PCP Team Chronic Disease Visit Annual PCP Team Chronic Disease Visit [facility] Start: 03-27-2024 BP Controlled (<130/80) BP Controlled (<130/80) [facility] Start: 03-27-2024 Hepatitis B screening Urine Albumin:Creatinine Ratio [facility] Start: 03-27-2024 Hepatitis B surface antibody level LDL Cholesterol [facility] Start: 03-27-2024 RSV Vaccine (1 - 1-dose 60+ series) RSV Vaccine (1 - 1-dose 60+ series) [facility] Comment on above: Postponed from 2005 (Declined at t his time) Start: 03-21-2024 End: 03-21-2024 ambulatory 03/21/2024 10:00 AM EST OT/PT/Speech Visit [facility] [address] [place] [address] Bowen Rodriguez, PT Weakness of lower extremity, unspecified laterality [R29.898]; Weight loss [R63.4]; Frailty syndrome in geriatric patient [R54] [facility] Comment on above: Weakness of lower extremity, unspecified laterality [R29.898]; Weight loss [R63.4]; Frailty syndrome in geriatric patient [R54] Start: 03-13-2024 BP Controlled (<130/80) BP Controlled (<130/80) [facility] Start: 03-01-2024 End: 05-31-2024 Microalbumin/Creatinine [Mass Ratio] in Urine [facility] Work Phone: Comment on above: Expected: 03/01/2024, Expires: Start: 03-01-2024 End: 03-01-2024 Patient encounter procedure 03/01/2024 9:00 AM EDT Office Visit Internal Medicine [place] [address] [place] [phone] Rodrigo Salas MD [address] [place] [address] medicare wellness [facility] [place] Comment on above: medicare wellness Start: 02-25-2024 Annual PCP Team Chronic Disease Visit Annual PCP Team Chronic Disease Visit [facility] Start: 02-25-2024 BP Controlled (<130/80) BP Controlled (<130/80) [facility] Start: 01-29-2024 End: 01-29-2024 Nursing evaluation of patient and report 01/29/2024 9:45 AM EDT Nurse Visit Cardiology [address] [place] [id number] Wstr, Nurse Card Admin [facility] [address] [place] [address] Coronary artery disease of [place] heart with stable angina pectoris, unspecified... Cardiology Comment on above: Coronary artery disease of [place] heart with stable angina pectoris, unspecified... Start: 01-29-2024 End: 01-29-2024 Patient encounter procedure Nuclear Medicine Comment on above: Coronary artery disease of [place] heart with stable angina pectoris, unspecified... Start: 01-14-2024 Covid-19 Vaccine () Covid-19 Vaccine () [facility] Comment on above: Postponed from 01/13/2023 (Declined at t his time) Start: 01-14-2024 Covid-19 Vaccine () Covid-19 Vaccine () [facility] Start: 01-14-2024 COVID-19 VACCINE (5 - Pfizer series) COVID-19 VACCINE (5 - Pfizer series) [facility] Comment on above: Postponed from 06/19/2022 (Declined at t his time) Start: 01-14-2024 Influenza vaccination Influenza Vaccine (#1) [facility] Start: 01-14-2024 SHINGRIX VACCINE (1 of 2) SHINGRIX VACCINE (1 of 2) [facility] Comment on above: Postponed from 1995 (Declined at t his time) Start: 01-14-2024 Urine microalbumin profile [facility] Comment on above: Postponed from 01/05/2021 (Declined at t his time) Start: 01-13-2024 ANNUAL PCP TEAM CHRONIC DISEASE VISIT ANNUAL PCP TEAM CHRONIC DISEASE VISIT [facility] Start: 01-13-2024 BP CONTROLLED (<130/80) BP CONTROLLED (<130/80) [facility] in Start: 01-01-2024 Shingrix Vaccine (2 of 2) Shingrix Vaccine (2 of 2) [facility] Start: 12-23-2023 Glaucoma screening Dilated Retinal Exam [facility] Start: 12-23-2023 Hepatitis C antibody, confirmatory test DILATED RETINAL EXAM [facility] Start: 12-10-2023 Hepatitis B surface antibody level LDL CHOLESTEROL [facility] Start: 11-21-2023 End: 11-21-2023 Patient encounter procedure 11/21/2023 11:00 AM EDT Office Visit Internal Medicine [place] [address] [place] [address] Rodrigo Salas MD [address] [place] [address] 6 month follow up [facility] [place] Comment on above: 6 month follow up Start: 11-20-2023 End: 11-20-2023 Patient encounter procedure 11/20/2023 10:00 AM EDT Office Visit [facility] [place] [address] [facility] [place] [address] Deborah Fernandez APRN.WALL CRANE OPERATOR [address] [place] [address] 6 month follow up [facility] Medicine [place] Comment on above: 6 month follow up Start: 11-13-2023 End: 12-05-2024 NM Heart Perfusion W stress and W radionuclide IV NM CARDIAC PERF STRESS/PHARM Radiology Routine Coronary artery disease of [place] heart with stable angina pectoris, unspecified vessel or lesion type (HCC) Shortness of breath Expected: 11/13/2023, Expires: 12/05/2024 [facility] Work Phone: Comment on above: Expected: 11/13/2023, Expires: Start: 11-12-2023 Influenza vaccination [facility] Comment on above: Postponed from 01/13/2023 (Declined at t his time) Start: 10-12-2023 ANNUAL PCP TEAM CHRONIC DISEASE VISIT ANNUAL PCP TEAM CHRONIC DISEASE VISIT [facility] Start: 10-12-2023 BP CONTROLLED (<130/80) BP CONTROLLED (<130/80) [facility] Start: 09-25-2023 Hemoglobin A1c measurement HbA1C [facility] Start: 09-25-2023 Hemoglobin A1c/Hemoglobin.total in Blood HbA1C [facility] Start: 08-30-2023 BP CONTROLLED (<130/80) BP CONTROLLED (<130/80) [facility] Start: 08-09-2023 Colonoscopy COLONOSCOPY [facility] Start: 08-09-2023 COLORECTAL CANCER SCREENING COLORECTAL CANCER SCREENING [facility] Start: 07-11-2023 ANNUAL PCP TEAM CHRONIC DISEASE VISIT ANNUAL PCP TEAM CHRONIC DISEASE VISIT [facility] Start: 07-08-2023 Hepatitis B surface antibody level LDL CHOLESTEROL [facility] Start: 06-13-2023 End: 09-12-2023 Lipid 1996 panel - Serum or Plasma LIPID PANEL BASIC Lab Routine PAD (peripheral artery disease) (HCC) Expected: 06/13/2023, Expires: 09/12/2023 [facility] Work Phone: Comment on above: Expected: 06/13/2023, Expires: Start: 06-11-2023 Hemoglobin A1c/Hemoglobin.total in Blood HBA1C [facility] Start: 05-15-2023 Advance Directive Discussion Advance Directive Discussion [facility] Start: 05-15-2023 Behavioral Health Screening Behavioral Health Screening [facility] Start: 05-15-2023 Depression Assessment Depression Assessment [facility] Start: 04-08-2023 ANNUAL PCP TEAM CHRONIC DISEASE VISIT ANNUAL PCP TEAM CHRONIC DISEASE VISIT [facility] Start: 04-07-2023 Hemoglobin A1c/Hemoglobin.total in Blood HBA1C [facility] Start: 03-27-2023 End: 06-26-2023 Basic metabolic 2000 panel - Serum or Plasma [facility] Work Phone: Comment on above: Expected: 03/27/2023, Expires: 4 Start: 02-16-2023 ANNUAL PCP TEAM CHRONIC DISEASE VISIT ANNUAL PCP TEAM CHRONIC DISEASE VISIT [facility] Start: 01-13-2023 Influenza vaccination INFLUENZA (#1) [facility] Start: 01-06-2023 3 comp foot exam completed DIABETIC FOOT EXAM [facility] Start: 01-06-2023 ANNUAL PCP TEAM CHRONIC DISEASE VISIT ANNUAL PCP TEAM CHRONIC DISEASE VISIT [facility] Start: 01-06-2023 Hepatitis B screening URINE ALBUMIN:CREATININE RATIO [facility] Start: 01-05-2023 Hemoglobin A1c/Hemoglobin.total in Blood HBA1C [facility] Start: 12-21-2022 Hepatitis C antibody, confirmatory test DILATED RETINAL EXAM [facility] Start: 12-14-2022 ANNUAL PCP TEAM CHRONIC DISEASE VISIT ANNUAL PCP TEAM CHRONIC DISEASE VISIT [facility] Start: 12-13-2022 Hepatitis B surface antibody level LDL CHOLESTEROL [facility] Start: 10-03-2022 Adult depression screening assessment DEPRESSION SCREENING [facility] Start: 09-09-2022 ANNUAL PCP TEAM CHRONIC DISEASE VISIT ANNUAL PCP TEAM CHRONIC DISEASE VISIT [facility] Start: 09-06-2022 Hepatitis B surface antibody level LDL CHOLESTEROL [facility] Start: 09-02-2022 Adult depression screening assessment DEPRESSION SCREENING [facility] Start: 07-26-2022 Adult depression screening assessment DEPRESSION SCREENING [facility] Start: 07-07-2022 Colonoscopy COLONOSCOPY [facility] Start: 07-07-2022 COLORECTAL CANCER SCREENING COLORECTAL CANCER SCREENING [facility] Start: 2022 ANNUAL PCP TEAM CHRONIC DISEASE VISIT ANNUAL PCP TEAM CHRONIC DISEASE VISIT [facility] Start: 06-19-2022 COVID-19 VACCINE (5 - Pfizer series) COVID-19 VACCINE (5 - Pfizer series) [facility] Start: 06-15-2022 Hemoglobin A1c/Hemoglobin.total in Blood HBA1C [facility] Start: 05-15-2022 ADVANCE DIRECTIVE DISCUSSION ADVANCE DIRECTIVE DISCUSSION [facility] Start: 05-15-2022 DEPRESSION ASSESSMENT DEPRESSION ASSESSMENT [facility] Start: 03-26-2022 End: 04-09-2022 SARS-CoV-2 (COVID-19) RNA [Presence] in Respiratory specimen by LAVERNE with probe detection 2019 CORONAVIRUS Microbiology Routine URI, acute Expected: 03/26/2022, Expires: 04/09/2022 [facility] Work Phone: Comment on above: Expected: 03/26/2022, Expires: 2 Start: 03-23-2022 Hepatitis B surface antibody level LDL CHOLESTEROL [facility] Start: 03-08-2022 Hemoglobin A1c/Hemoglobin.total in Blood HBA1C [facility] Start: 01-13-2022 Influenza vaccination INFLUENZA (#1) [facility] Start: 12-24-2021 3 comp foot exam completed DIABETIC FOOT EXAM [facility] Start: 12-24-2021 Hepatitis B screening URINE ALBUMIN:CREATININE RATIO [facility] Start: 12-01-2021 Patient discharge [facility] Work Phone: Start: 10-12-2021 COVID-19 VACCINE (4 - Booster for Pfizer series) COVID-19 VACCINE (4 - Booster for Pfizer series) [facility] Start: 09-20-2021 Hemoglobin A1c/Hemoglobin.total in Blood HBA1C [facility] Start: 09-17-2021 Hepatitis C antibody, confirmatory test DILATED RETINAL EXAM [facility] Start: 05-15-2021 ADVANCE DIRECTIVE DISCUSSION ADVANCE DIRECTIVE DISCUSSION [facility] Start: 05-15-2021 DEPRESSION ASSESSMENT DEPRESSION ASSESSMENT [facility] Start: 01-05-2021 Urine microalbumin profile [facility] Start: 02-22-2013 PNEUMOCOCCAL: 65+ (2 - PCV) PNEUMOCOCCAL: 65+ (2 - PCV) [facility] Start: 2005 Hepatitis B Vaccine (1 of 3 - Risk 3-dose series) Hepatitis B Vaccine (1 of 3 - Risk 3-dose series) [facility] Start: 2005 RSV Vaccine (1 - 1-dose 60+ series) RSV Vaccine (1 - 1-dose 60+ series) [facility] Start: 1995 SHINGRIX VACCINE (1 of 2) SHINGRIX VACCINE (1 of 2) [facility] Start: 1990 COLOGUARD (FIT-DNA) COLOGUARD (FIT-DNA) [facility] Start: [address] COLONOGRAPHY [facility] Start: 1990 FECAL OCCULT BLOOD FECAL OCCULT BLOOD [facility] Start: 1990 Screening for malignant neoplasm of colon [facility] Start: 1990 SIGMOIDOSCOPY SIGMOIDOSCOPY [facility] Start: 1963 Anxiety Screening Anxiety Screening [facility] Start: 1963 BP CONTROLLED (<130/80) BP CONTROLLED (<130/80) [facility] Start: 1963 Depression Screening Depression Screening [facility] BACTERIAL VAGINOSIS AMPLIFICATION BACTERIAL VAGINOSIS AMPLIFICATION Lab Routine Vaginal pain Vulvar irritation Ordered: 10/13/2022 [facility] Work Phone: Comment on above: Ordered: 10/13/2022 DILCIA / TRICHOMONA S AMPLIFICATION DILCIA / TRICHOMONAS AMPLIFICATION Microbiology Routine Vaginal pain Vulvar irritation Ordered: 10/13/2022 [facility] Work Phone: Comment on above: Ordered: 10/13/2022 End: 04-08-2023 CBC panel - Blood by Automated count CBC Lab Routine Controlled type 2 diabetes mellitus without complication, without long-term current use of insulin (HCC) Every 6 months for 12 Occurrences starting 04/08/2022 until 04/08/2023 [facility] Work Phone: Comment on above: Every 6 months for 12 Occurrences starti ng 04/08/2022 until 04/08/2023 End: 07-02-2025 CBC panel - Blood by Automated count COMPLETE BLOOD COUNT Lab Routine Type 2 diabetes mellitus with diabetic peripheral angiopathy without gangrene, without long-term current use of insulin (HCC) Every 6 months for 12 Occurrences starting 07/02/2024 until 07/02/2025 [facility] Comment on above: Every 6 months for 12 Occurrences starti ng 07/02/2024 until 07/02/2025 CBC W Auto Different ial panel - Blood [facility] End: 04-08-2023 Comprehensive metabolic 2000 panel - Serum or Plasma COMP METABOLIC PANEL Lab Routine Controlled type 2 diabetes mellitus without complication, without long-term current use of insulin (HCC) Every 6 months for 12 Occurrences starting 04/08/2022 until 04/08/2023 [facility] Work Phone: Comment on above: Every 6 months for 12 Occurrences starti ng 04/08/2022 until 04/08/2023 End: 07-02-2025 Comprehensive metabolic 2000 panel - Serum or Plasma COMPREHENSIVE METABOLIC PANEL Lab Routine Type 2 diabetes mellitus with diabetic peripheral angiopathy without gangrene, without long-term current use of insulin (HCC) Every 6 months for 12 Occurrences starting 07/02/2024 until 07/02/2025 [facility] Comment on above: Every 6 months for 12 Occurrences starti ng 07/02/2024 until 07/02/2025 Comprehensive metabo lic 2000 panel - Serum or Plasma [facility] End: 08-22-2023 Diagnostic mammography computer-aided detcj [facility] DIAGNOSTIC LT Radiology Routine Abnormal mammogram 1 Occurrences starting 07/23/2022 until 08/22/2023 [facility] Work Phone: Comment on above: 1 Occurrences starting 07/23/2022 until 08/22/2023 End: 07-15-2023 ECG COMPLETE ECG COMPLETE ECG Routine Essential hypertension Mixed hyperlipidemia Coronary artery disease of [place] heart with stable angina pectoris, unspecified vessel or lesion type (HCC) 1 Occurrences starting 07/14/2022 until 07/15/2023 [facility] Work Phone: Comment on above: 1 Occurrences starting 07/14/2022 until 07/15/2023 ECG COMPLETE ECG COMPLETE ECG 11/06/2023 9:18 AM EDT [facility] End: 06-19-2025 ECG COMPLETE ECG COMPLETE ECG Routine Essential hypertension 1 Occurrences starting 06/19/2024 until 06/19/2025 [facility] Work Phone: Comment on above: 1 Occurrences starting 06/19/2024 until 06/19/2025 End: 04-08-2023 Hemoglobin A1c in Blood HGB A1C Lab Routine Controlled type 2 diabetes mellitus without complication, without long-term current use of insulin (HCC) Every 3 months for 24 Occurrences starting 04/08/2022 until 04/08/2023 [facility] Work Phone: Comment on above: Every 3 months for 24 Occurrences starti ng 04/08/2022 until 04/08/2023 End: 07-02-2025 Hemoglobin A1c in Blood HEMOGLOBIN A1C Lab Routine Type 2 diabetes mellitus with diabetic peripheral angiopathy without gangrene, without long-term current use of insulin (HCC) Every 3 months for 24 Occurrences starting 07/02/2024 until 07/02/2025 [facility] Comment on above: Every 3 months for 24 Occurrences starti ng 07/02/2024 until 07/02/2025 End: 04-08-2023 Lipid 1996 panel - Serum or Plasma LIPID PANEL BASIC Lab Routine Controlled type 2 diabetes mellitus without complication, without long-term current use of insulin (HCC) Every 6 months for 12 Occurrences starting 04/08/2022 until 04/08/2023 [facility] Work Phone: Comment on above: Every 6 months for 12 Occurrences starti ng 04/08/2022 until 04/08/2023 End: 07-02-2025 Lipid 1996 panel - Serum or Plasma LIPID PANEL BASIC Lab Routine Type 2 diabetes mellitus with diabetic peripheral angiopathy without gangrene, without long-term current use of insulin (HCC) Every 6 months for 12 Occurrences starting 07/02/2024 until 07/02/2025 [facility] Comment on above: Every 6 months for 12 Occurrences starti ng 07/02/2024 until 07/02/2025 End: 08-10-2023 PEARL SCREENING PEARL SCREENING Radiology Routine Breast cancer screening by mammogram 1 Occurrences starting 07/11/2022 until 08/10/2023 [facility] Work Phone: Comment on above: 1 Occurrences starting 07/11/2022 until 08/10/2023 End: 02-28-2026 MG Breast - bilateral Diagnostic PEARL DIAGNOSTIC BILATERAL Radiology Routine Breast nodule H/O lumpectomy 1 Occurrences starting 01/29/2025 until 02/28/2026 [facility] Work Phone: Comment on above: 1 Occurrences starting 01/29/2025 until 02/28/2026 Patient referral [facility] Work Phone: Prothrombin time [facility] End: 04-08-2023 Thyrotropin [Units/volume] in Serum or Plasma TSH BLD Lab Routine Controlled type 2 diabetes mellitus without complication, without long-term current use of insulin (HCC) Every 3 months for 24 Occurrences starting 04/08/2022 until 04/08/2023 [facility] Work Phone: Comment on above: Every 3 months for 24 Occurrences starti ng 04/08/2022 until 04/08/2023 End: 07-02-2025 Thyrotropin [Units/volume] in Serum or Plasma THYROID STIMULATING HORMONE Lab Routine Type 2 diabetes mellitus with diabetic peripheral angiopathy without gangrene, without long-term current use of insulin (HCC) Every 3 months for 24 Occurrences starting 07/02/2024 until 07/02/2025 [facility] Comment on above: Every 3 months for 24 Occurrences starti ng 07/02/2024 until 07/02/2025 Urinalysis complete panel - Urine URINALYSIS, WITH MICROSCOPIC Lab Routine Burning with urination 09/09/2021 11:15 AM EDT [facility] Work Phone: End: 10-09-2022 Us abdominal real time w/image limited US ABD RT UPPER QUADRANT Radiology Routine Idiopathic esophageal varices without bleeding (HCC) 1 Occurrences starting 09/09/2021 until 10/09/2022 [facility] Work Phone: Comment on above: 1 Occurrences starting 09/09/2021 until 10/09/2022 End: 02-28-2026 US Breast - left limited US BREAST LTD LEFT Radiology Routine Breast nodule H/O lumpectomy 1 Occurrences starting 01/29/2025 until 02/28/2026 [facility] Comment on above: 1 Occurrences starting 01/29/2025 until 02/28/2026 End: 02-28-2026 US Breast - right limited US BREAST LTD RIGHT Radiology Routine Breast nodule H/O lumpectomy 1 Occurrences starting 01/29/2025 until 02/28/2026 [facility] Comment on above: 1 Occurrences starting 01/29/2025 until 02/28/2026 End: 08-22-2023 Us breast uni real time with image limited US BREAST LTD LT Radiology Routine Abnormal mammogram 1 Occurrences starting 07/23/2022 until 08/22/2023 [facility] Work Phone: Comment on above: 1 Occurrences starting 07/23/2022 until 08/22/2023 End: 07-19-2023 US RENAL [facility] Vascular Lab Routine Essential hypertension 1 Occurrences starting 07/18/2022 until 07/19/2023 [facility] Work Phone: Comment on above: 1 Occurrences starting 07/18/2022 until 07/19/2023 End: 08-01-2025 XR Finger - right AP and Lateral and oblique XR DIGIT GENERAL 3V FRONTAL/LAT/OBL RIGHT Radiology Routine Arthritis of carpometacarpal (CMC) joint of left thumb 1 Occurrences starting 07/02/2024 until 08/01/2025 [facility] Work Phone: Comment on above: 1 Occurrences starting 07/02/2024 until 08/01/2025 XR Finger - right AP and Lateral and oblique XR DIGIT GENERAL 3V FRONTAL/LAT/OBL RIGHT Radiology Routine Arthritis of carpometacarpal (CMC) joint of left thumb 07/02/2024 11:30 AM [facility] End: 08-24-2025 XR Hand - left PA and Lateral and Oblique XR HAND GENERAL 3V PA/LAT/OBL LEFT Radiology Routine Left hand pain 1 Occurrences starting 07/25/2024 until 08/24/2025 [facility] Work Phone: Comment on above: 1 Occurrences starting 07/25/2024 until 08/24/2025 End: 09-11-2025 XR Hand - right PA and Lateral and Oblique XR HAND GENERAL 3V PA/LAT/OBL RIGHT Radiology Routine Pain of right hand 1 Occurrences starting 08/12/2024 until 09/11/2025 [facility] Comment on above: 1 Occurrences starting 08/12/2024 until 09/11/2025 XR Hand - right PA a nd Lateral and Oblique XR HAND GENERAL 3V PA/LAT/OBL RIGHT Radiology Routine Pain of right hand 08/13/2024 10:18 AM EDT [facility] Work Phone: XR Knee - bilateral 4 Views XR KNEE GENERAL 4V AP BOTH/PA BOTH/LAT/MERC BILATERAL Radiology Routine Primary osteoarthritis of both knees 08/13/2024 11:29 AM EDT [facility] XR Pelvis AP XR PELVIS 1V AP Radiology Routine Inguinal pain, unspecified laterality 08/13/2024 11:29 AM EDT [facility] Immunizations Immunization Date Immunization Notes Care Provider [facility] 01-29-2025 influenza, high dose seasonal, preservative-free Rodrigo Salas MD Work Phone: [facility] 01-22-2024 influenza (HD-IIV4) vaccine, age 65+ yr, high dose, quadrivalent, PF (FLUZONE HIGH-DOSE) Nurse Wstr Work Phone: [facility] 01-22-2024 zoster vaccine recombinant Nurse Wstr Work Phone: [facility] 01-22-2024 influenza virus vacc ine, unspecified formulation Rodrigo Salas MD Work Phone: [facility] 11-06-2023 respiratory syncytia l virus (RSV) vaccine, adjuvanted (AREXVY) Reinaldo Choi MD Work Phone: [facility] 11-06-2023 zoster vaccine recombinant Reinaldo Choi MD Work Phone: [facility] 03-27-2023 influenza (HD-IIV4) vaccine, age 65+ yr, high dose, quadrivalent, PF (FLUZONE HIGH-DOSE) Deborah Fernandez APRN.WALL CRANE OPERATOR Work Phone: [facility] 03-27-2023 influenza virus vacc ine, unspecified formulation Reinaldo Choi MD Work Phone: [facility] 02-16-2022 COVID-19 booster vaccine, age 12+ yr, bivalent (PFIZER-BIONTGrandex Inc) Osvaldo Hamilton MD Work Phone: [facility] Work Phone: 02-16-2022 influenza, high-dose , quadrivalent vaccine (FLUZONE HIGH DOSE QUADRIVALENT) Osvaldo Hamilton MD Work Phone: [facility] Work Phone: 02-16-2022 influenza virus vacc ine, unspecified formulation Deborah Fernandez APRN.[facility] Work Phone: [facility] 01-06-2022 pneumococcal (PCV20) vaccine, 20 valent (PREVNAR 20) Rodrigo Salas MD Work Phone: [facility] 03-26-2021 influenza, high-dose , quadrivalent vaccine (FLUZONE HIGH DOSE QUADRIVALENT) Rodrigo Salas MD Work Phone: [facility] Work Phone: 08-13-2020 COVID-19 vaccine, ag e 12+ yr (PFIZER-BIONTECH - PURPLE TOP) Rodrigo Salas MD Work Phone: [facility] 07-23-2020 COVID-19 vaccine, ag e 12+ yr (PFIZER-BIONTECH - PURPLE TOP) Rodrigo Salas MD Work Phone: [facility] 02-23-2012 pneumococcal polysaccharide vaccine, 23 valent Rodrigo Salas MD Work Phone: [facility] 02-09-2012 influenza virus vacc ine, unspecified formulation Rodrigo Salas MD Work Phone: [facility] 03-02-2011 influenza virus vacc ine, unspecified formulation Rodrigo Salas MD Work Phone: [facility] Work Phone: 01-05-2011 tetanus toxoid, redu gonsalo diphtheria toxoid, and acellular pertussis vaccine, adsorbed Rodrigo Salas MD Work Phone: [facility] 03-21-2008 influenza virus vacc ine, unspecified formulation Rodrigo Salas MD Work Phone: [facility] Work Phone: 03-20-2007 influenza virus vacc ine, unspecified formulation Rodrigo Salas MD Work Phone: [facility] 03-07-2006 influenza virus vacc ine, unspecified formulation Rodrigo Salas MD Work Phone: [facility] 04-29-2003 pneumococcal polysaccharide vaccine, 23 valent Rodrigo Salas MD Work Phone: [facility] Work Phone: 10-13-2000 tetanus and diphther ia toxoids, not adsorbed, for adult use Rodrigo Salas MD Work Phone: [facility] Work Phone: Payers Date Payer Category Payer Self-pay [id number] 2022 Medicare (Managed Care) AEMALINDA SHORT [id number] 2022 Private Health Insurance [facility] [id number] 2021 Medicare HUMANA MEDICARE HUMANA MEDICARE PPO [id number] 2021-Present [phone] [id number] 2020 Medicare [id number] 2010 Medicare [id number] Unknown [id number] Unknown [id number] Unknown [id number] Unknown [id number] Unknown [id number] Social History Date Type Detail Facility Start: 01-03-2022 End: 07-18-2023 Tobacco smoking status NHIS Never smoked tobacco [facility] Start: 07-19-2021 End: 08-29-2022 Alcohol intake Current drinker of alcohol (finding) [facility] Start: 05-25-2020 End: 04-07-2022 History SDOH Alcohol Frequency 2 [facility] Start: 05-25-2020 End: 04-07-2022 History SDOH Alcohol Std Drinks 1 [facility] Start: 05-25-2020 End: 04-07-2022 History SDOH Social Connections Phone 5 [facility] Start: 05-25-2020 End: 04-07-2022 History SDOH Social Connections Shinto 98 [facility] Start: 05-25-2020 History SDOH Social Connections Living 3 [facility] Start: 05-25-2020 History SDOH Physica l Activity DPW 0 [facility] Start: 05-25-2020 Education 15 [facility] Start: 1945 Sex Assigned At Female C [facility] Start: 06-19-2021 End: 04-08-2022 Exposure to SARS-CoV-2 (event) Not sure [facility] Start: 10-21-2021 End: 07-05-2022 Tobacco smoking status NHIS Unknown if ever smoked [facility] Start: 04-06-2021 [facility] Start: 04-06-2021 None [facility] Start: 04-06-2021 Homeless [facility] Start: 04-06-2021 Non-smoker [facility] Start: 01-03-2022 Tobacco use and exposure Smokeless tobacco non-user [facility] Start: 10-13-2022 End: 01-29-2025 Alcohol intake Ex-drinker (finding) [facility] Start: 04-07-2022 End: 03-01-2024 History of Social function [facility] Start: 04-07-2022 End: 03-01-2024 Social connection and isolation panel [facility] Start: 04-15-2012 Frequency of Social Gatherings with Friends and Family Not on file [facility] How often to you hav e a drink containing alcohol? Never [facility] How many standard drinks containing alcohol do you have on a typical day? 1 or 2 [facility] In the past 12 month s, was there a time when you were not able to pay the mortgage or rent on time? No [facility] Start: 05-25-2020 Gender identity Identifies as female gender (finding) [facility] Start: 05-25-2020 Sexual orientation Heterosexual (misa turcios) [facility] Do you feel stress - tense, restless, nervous, or anxious, or unable to sleep at night because your mind is troubled all the time - these days [OSQ] Not at all [facility] (I/We) worried jeannette er (my/our) food would run out before (I/we) got money to buy more. Never true [facility] Are you now , , , , never or living with a partner? [facility] How often to you hav e a drink containing alcohol? Monthly or less [facility] How hard is it for y ou to pay for the very basics like food, housing, medical care, and heating Not very hard [facility] Do you feel stress - tense, restless, nervous, or anxious, or unable to sleep at night because your mind is troubled all the time - these days [OSQ] Only a little [facility] Medical Equipment Procedure Code Equipment Code Equipment Original Text Equipment Identifier Dates [id number], [id number] Start: 04-13-2012 End: 01-12-2023 Comment on above: TEST BLOOD SUGAR ONC E DAILY. 250.00 Test blood sugar(s) 1 times daily. Dx: Type 2 DM - Controlled E11.9 Insulin: No Goals Date Patient Goal Desired Activity /State Personal health goal Mental Status Date Assessment Result Facility 07-20-2022 Cognitive function Voice/Name;Touch/Shaki ng [facility] Work Phone: Clinical Notes 09-28-2010 to 02-28-2025 Patient Rodrigo Lowe MD - 01/29/2025 10:30 AM EDT Note Date & Type Note Facility 02-28-2025 Note HNO ID: [id number] Author: REINALDO CHOI MD Service: Cardiovascular Surgery Author Type: Physician Type: Procedures Filed: 02/28/2025 11:00 Note Text: Coronary Angiography FFR LAD. MODERATE SEDATION: Moderate Sedation provided by Cardiology Nursing Staff. Moderate sedation consisting of continuous ECG, pulse oximetry and cardiopulmonary monitoring was performed by the Cardiology Nurse, overseen by supervising physician, for an intra-service time of . 60 min. Sedative Medications: Drug: Versed Dose: 1 mg Route: IV Drug: Fentanyl Dose: 25 mcg Route: IV PRIORITY AT TIME OF PROCEDURE: Elective SITE OF ENTRY: Radial:Right Radial CONTRAST: Omnipaque 350 mg Iodine/mL (iohexol injection, solution): 90 mL ADDITIONAL PROCEDURES: INTERROGATION AND ASSESSMENT OF LESION: The lesion in the LAD vessel was noted angiographically to be a borderline lesion and IFR was completed for physiological assessment to determine severity. The catheter was replaced with a guiding catheter; the vessel was engaged and a pressure wire was advanced. IFR baseline measurement was completed and recorded at 0.91. Result greater than 0.89; lesion deemed physiologically insignificant and invasive treatment was not performed. The lesion in the LAD is a borderline lesion and FFR was completed for physiological assessment to determine lesion severity. The catheter was replaced with a guiding catheter; the vessel was engaged and a pressure wire was advanced. Pressure was normalized before crossing the lesion. Baseline gradient was established, a hyperemic response was then initiated with adenosine 140 mcg/kg/min given intravenously. Following the 2 min IV infusion, FFR was calculated using Pd/Pa and result was recorded at 0.88. Result greater than 0.80; decision was made to defer invasive treatment. CORONARY ANGIOGRAPHY: The patient was taken to the cardiac lab support technician where the entry site was prepped and draped in a sterile manner. Under local anesthesic with 1% Lidocaine, the vessel was cannulated and The vessel was cannulated with Seldinger's technique using an arterial needle and Ultrasound was used to visualize and guide the entry into the vessal and a 6F sheath was introduced. Selective injections were made in the left and right coronary arteries and various right, left and oblique views were obtained. LEFT MAIN TRUNK: No Stenosis LEFT ANTERIOR DESCENDIN% Stenosis Location: Diffuse DIAGONAL #1: No Stenosis LEFT CIRCUMFLEX: No Stenosis MARGINAL #1: No Stenosis DOMINANT: YES POSTERIOR DESCENDING: No Stenosis RIGHT CORONARY: 60% Stenosis Location: Proximal DOMINANT: YES POSTERIOR DESCENDING: No Stenosis POSTERIOR LATERAL: No Stenosis The sheath was removed with radial band on per protocol Impression: 1. Moderate proximal RCA lesion . 2. Moderate Proximal to mid LAD lesion . 3. Normal LV size and function . 4. Normal IFR and FFR LAD. 5. Uncontrolled hypertension . Conclusion : Double coreg. Add HCTZ. BMP in one week . [facility] 02-19-2025 Note HNO ID: [id number] Author: GINA SMITH RDMS Service: ? Author Type: Epic Willow Specialist Type: Progress Notes Filed: 02/19/2025 15:08 Note Text: Radiology Service Progress Note PATIENT NAME: Gabby Guillen DATE OF SERVICE: February 19, 2025 TIME: 3:08 PM PATIENT IDENTITY VERIFICATION COMPLETED USING TWO (2) IDENTIFIERS: Name and Date of confirmed by patient verbally. FALL SCREENING: Has the patient had 2 falls in the last year or 1 fall with injury or currently using an Ambulatory Assistive Device (Walker, Cane, Wheelchair, Crutches, etc.)? No PATIENT GENDER DATA: Assigned female at . status: : No status: NO. PATIENT RELEVANT IMPLANT DATA REVIEWED: Not Applicable PATIENT PRESENTS WITH AN IMPLANTABLE OR ATTACHED CLOTHING CONSULTANT: No RADIOLOGY DEPARTMENT: Ultrasound PERIPHERAL IV DATA: Not applicable SIGNED BY: Gina Smith RDMS February 19, 2025 3:08 PM [facility] 02-19-2025 Note HNO ID: [id number] Author: LILLI GARLAND Mammo Tech Service: ? Author Type: Technologist Type: Progress Notes Filed: 02/19/2025 11:13 Note Text: Radiology Service Progress Note PATIENT NAME: Gabby Guillen DATE OF SERVICE: February 19, 2025 TIME: 11:13 AM PATIENT IDENTITY VERIFICATION COMPLETED USING TWO (2) IDENTIFIERS: Name and Date of confirmed by patient verbally. FALL SCREENING: Has the patient had 2 falls in the last year or 1 fall with injury or currently using an Ambulatory Assistive Device (Walker, Cane, Wheelchair, Crutches, etc.)? No PATIENT GENDER DATA: Assigned female at . status: : No status: NO. PATIENT RELEVANT IMPLANT DATA REVIEWED: Not Applicable PATIENT PRESENTS WITH AN IMPLANTABLE OR ATTACHED CLOTHING CONSULTANT: No RADIOLOGY DEPARTMENT: Mammography PERIPHERAL IV DATA: Not applicable SIGNED BY: Lilli Garland Platypus Platform February 19, 2025 11:13 AM [facility] 02-12-2025 Note HNO ID: [id number] Author: REINALDO CHOI MD Service: ? Author Type: Physician Type: Progress Notes Filed: 02/12/2025 16:44 Note Text: Reinaldo Choi MD General Cardiology [address] [place] [address] [phone] Chief Complaint Patient presents with: Cardiology Follow Up - Generic: HLD HISTORY OF PRESENT ILLNESS: Ms. 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 The patient reports experiencing chest pain that radiates to her shoulders and neck. 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 She experiences these episodes approximately every other day, particularly when busy. She also reports significant fatigue. She notes that these symptoms have become more frequent compared to 2020, when coronary angiography revealed arterial blockages. She expresses concern that her condition may be worsening. She also reports episodes of elevated blood pressure. She was previously on Repatha 420 mg monthly but discontinued it due to insurance coverage issues. Her most recent lipid panel on 09/19/2024 showed a total cholesterol of 256 mg/dL and LDL of 176 mg/dL. She takes aspirin intermittently rather than daily. Current medications include Coreg 3.125 mg BID and losartan 100 mg daily. Cardiac Risk Factors age (male over 45, female over 55), hyperlipidemia, hypertension, family history of CAD PAST MEDICAL HISTORY Diagnosis Date Adjustment disorder with depressed mood 03/17/2005 Arthritis Coronary artery disease Dyspareunia 03/17/2005 Esophageal reflux Gastroesophageal reflux Esophageal reflux HLD (hyperlipidemia) HTN (hypertension) Impaired fasting glucose 03/17/2005 Mixed hyperlipidemia Myalgia and myositis, unspecified Other and unspecified hyperlipidemia 03/17/2005 PMH - PAST MEDICAL HISTORY OF TIA's PMH - PAST MEDICAL HISTORY OF skin cancer Rheumatoid arthritis(714.0) Statin intolerance Trace cataracts 2007 Uncontrolled type 2 diabetes mellitus with hyperglycemia (HCC) 04/01/2010 Unspecified asthma(493.90) 03/17/2005 Unspecified closed fracture of ankle Unspecified essential hypertension 03/17/2005 PAST SURGICAL HISTORY Procedure Laterality Date ABDOMINAL SURGERY HX ADENOIDECTOMY PRIMARY Adenoidectomy ADENOIDECTOMY SECONDARY AGE 12/> APPENDECTOMY age 30s incidental to SARAH APPENDECTOMY HX BIOPSY BREAST OPEN INCISIONAL Bx of breast, incisional x3 both BREAST SURGERY HX CHOLECYSTECTOMY Cholecystectomy CHOLECYSTECTOMY COLONOSCOPY FLX DX W/COLLJ SPEC WHEN PFRMD 08/2002 Colonoscopy COLONOSCOPY FLX DX W/COLLJ SPEC WHEN PFRMD 2010 Colonoscopy COLONOSCOPY SCREENING 07/07/2021 EGD W/O BRSH SPEC VARICIES INJ 07/07/2021 ESOPHAGOGASTRODUODENOSCOPY TRANSORAL DIAGNOSTIC EGD ESOPHAGOGASTRODUODENOSCOPY TRANSORAL DIAGNOSTIC 08/2002 EGD ESOPHAGOGASTRODUODENOSCOPY TRANSORAL DIAGNOSTIC 04/14/2011 EGD EYE SURGERY HX INCISE FINGER TENDON SHEATH Right 09/04/2024 Right trigger thumb release KNEE LEFT OP SURGERY LUMPECTOMY/RADIOTHERAPY DIAG MAMM/A10 1980s bilat NEUROPLASTY AND/TRANSPOS MEDIAN NRV CARPAL TUNNE both PAST SURGICAL HISTORY OF benign leg tumor PAST SURGICAL HISTORY OF multiple brest lumpectomy x3 benign both PAST SURGICAL HISTORY OF facial/mouth surgery PAST SURGICAL HISTORY OF dental surgery PAST SURGICAL HISTORY OF bladder/colon with fistula tumor benign PAST SURGICAL HISTORY OF benign tumor from right lower leg PAST SURGICAL HISTORY OF 04/27/2005 right shoulder scope and debridement SKIN BIOPSY HX TONSILLECTOMY HX TONSILLECTOMY PRIMARY/SECONDARY Tonsillectomy TOTAL ABDOMINAL HYSTERECT W/WO RMVL TUBE OVARY Hysterectomy, SARAH + BSO in stages VAGINAL HYSTERECTOMY FAMILY HISTORY Problem Relation Age of Onset Hypertension Mother Breast Cancer Mother Diabetes Father Heart Father Hypertension Father Hypertension Sister Hypertension Brother 3 brothers all with hypertension diabetes all have this Thyroid Daughter Hypertension Son Diabetes Son Cancer Daughter thyroid Diabetes Sister x 2 both have diabetes Cancer Brother All 3 Brothers Hypertension Other Several Family Member SOCIAL HISTORY[1] ALLERGIES Allergen Reactions Amlodipine Swelling Biaxin [Clarithromy* Rash Metformin Diarrhea ER formulation caused symptoms at 1 tablet per day Spironolactone Other: See Comments lightheaded and dizzy Ktikbio-Tyn-Emx Red* Intolerance myalgia and diarrhea Medications: Current Outpatient Medications Medication Sig Dispense Refill valACYclovir (VALTREX) 500 mg tablet Take 1 tablet by mouth once daily. betamethasone dipropionate, augmented (DIPROLENE) 0.05 % cream Apply to affected area. APPLY TO AFFECTED AREAS OF RASH ON THE BODY (more content not included)... [facility] 01-29-2025 Instructions Rodrigo Salas MD - 01/29/2025 10:54 AM EDT We discussed your fatigue and physical activity: - You mentioned feeling tired, especially in the mornings, but you feel more energetic later in the day. - While you are not doing structured exercise, you are physically active with activities like gardening and walking. I encourage you to continue these activities and aim for at least 30 minutes of physical activity most days of the week. - Consider finding a walking or exercise partner to help keep you motivated. We discussed your balance concerns: - You reported losing your balance, which is concerning. I recommend trying physical therapy for gait and balance. - To manage costs, you can limit the sessions to three visits and focus on learning exercises you can continue at home. We discussed your dentures: - You mentioned issues with loose dentures and difficulty with the bottom plate. You have an upcoming appointment with Dr. Ramirez to address these concerns. Please follow up with him as planned. We discussed your breast health: - You reported lumps near your chest and breast area. On examination, I noted some lymph nodes and no concerning findings in the breast tissue itself. - To investigate further, I have ordered a bilateral diagnostic mammogram and breast ultrasound. These tests will also evaluate the areas you are concerned about above the breast. - Please schedule these tests as soon as possible and let me know if you have any difficulty arranging them. We discussed your family history of breast cancer: - You shared that your mother had breast cancer and that you have been encouraging your daughters to monitor their breast health. This is important, and I encourage you to continue these discussions with your family. We discussed your medications: - You are currently taking Ozempic 0.25 mg weekly. Please continue this medication as prescribed. I have sent a refill for a year s supply (90 days at a time) to your pharmacy. - You mentioned gaining some weight, but your weight has been relatively stable. I recommend maintaining your weight around 140 lbs and not going below this. - You are not currently taking thyroid medication, and your TSH levels are normal. No changes are needed at this time. - You are not receiving Repatha due to insurance issues. Please discuss alternative medications, such as bempedoic acid (Nexletol), with your specialist at your next appointment. - You mentioned a new medication prescribed by Dr. Bose, your trimmer tailer, for cold sores. Please continue this as directed and follow up with him for further evaluation. 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 This condition is not related to alcohol use and is associated with liver stiffness. - Please continue to follow up with your specialist for management of this condition. Follow-Up: - Schedule the bilateral diagnostic mammogram and breast ultrasound as soon as possible. - Follow up with Dr. Ramirez regarding your dentures. - Discuss alternative cholesterol medications with your specialist at your next appointment. - Continue physical activity and consider physical therapy for balance concerns. - Let me know if you experience any new or worsening symptoms. documented in this encounter [facility] 01-29-2025 Note HNO ID: [id number] Author: RODRIGO SALAS MD Service: ? Author Type: Physician Type: Progress Notes Filed: 01/29/2025 11:29 Note Text: Gabby Guillen is a 79 year old female here for a Medicare wellness visit. Medicare Health Risk Assessment General Health Good Exercise: Minutes/Day 40 min Exercise: Days/Week 3 days Alcohol: Daily Use Monthly or less Alcohol: Drinks/Day 1 or 2 Alcohol: 6 or more drinks Never Feel off balance Yes Concerns: Teeth/Dentures Yes Concerns: Sexual function No Troubled by feelings Stressed Frequency: Eating healthy diet Nearly every day ADLs requiring help None of the above Safety precautions in home/vehicle Yes Smoke, vape, chews tobacco No Difficulty hearing Yes, I wear a hearing aid Difficulty seeing Yes Current Providers Specialists: I have reviewed specialist-related care of the patient in the medical record. Medical/Family history review Reviewed and updated problem list, medical/surgical/family/social history, medications, and allergies. Opioid use review Opioid Medications (last 90 days) No data to display Anxiety/Depression screening LEE-7 Score: 5 (Mild Anxiety) Recommendation: no further intervention at this time Cognitive screening Mini Cog Score: 5 Cognitive screening reviewed and No further action needed (score 3-5). Functional Observation Was the patient's Timed Up AND Go test unsteady or >= 12 seconds? Yes Advance Care Planning Surrogate decision maker and/or advance care plan documented Measurements BP 142/79 Pulse 65 Resp 16 Wt 64 kg (141 lb 3.2 oz) BMI 27.58 kg/m? Vision Screening: Follows with optometry/ophthalmology Assessment/Plan Medicare annual wellness visit, subsequent (Z00.00) - Counseled on healthy diet and regular exercise - Fall avoidance information provided - Personalized prevention plan provided Reason for Visit Follow up HPI Gabby Guillen is a 79-year-old female with a history of breast cancer, NAFLD, and hypercholesterolemia, presenting for a follow-up visit. Gabby reports persistent fatigue, particularly in the mornings, which she attributes to not being a morning person. She notes increased energy later in the day. She denies engaging in formal exercise but describes herself as physically active, engaging in activities such as gardening and walking. She estimates she spends about 30 minutes gardening several days a week, interspersed with other activities like quilting and sewing. She expresses a preference for exercising with others and mentions that she would attend [employer] if it were closer. Gabby reports issues with her dentures, describing them as really loose and causing discomfort. She has a scheduled appointment with Dr. Ramirez to address these issues. She also mentions a recent quote of $12,000 for dental work, which she declined. Gabby reports concerns about balance, stating, I've been losing my balance. That's what scares me. She expresses reluctance to attend physical therapy due to the cost. She reports palpable lumps in her chest and breast areas, which she describes as lymph nodes. She has a history of a lumpectomy for precancerous lesions but did not undergo radiation or chemotherapy. She reports a family history of breast cancer, with her mother having from the disease. She mentions that her last mammogram was in 2022. 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 Bose, a trimmer tailer, to address this issue. She also mentions a history of genital herpes, which she discovered while reviewing her medical records but is not sure that is accurate She is currently taking Ozempic 0.25 mg weekly, with her last dose taken on Monday. She reports stable weight but expresses a desire to lose weight, aiming for 125 lbs. She is not currently taking thyroid medication. She has not yet started Repatha due to insurance issues and mentions a previous intolerance to statins. She also reports being prescribed a medication for NAFLD, which she did not take due to the cost being over $1,000 per month. SOCIAL HISTORY[1] Past medical history, appointments, medications, allergies reviewed. Pertinent Lab/Diagnostic Studies are reviewed and discussed today Current Outpatient Medications: valACYclovir (VALTREX) 500 mg tablet betamethasone dipropionate, augmented (DIPROLENE) 0.05 % cream carvedilol (COREG) 3.125 mg tablet REPATHA PUSHTRONEX 420 mg/3.5 mL wearable injector hydrocortisone 2.5 % cream losartan (COZAAR) 100 mg tablet DULoxetine (CYMBALTA) [address] (PROTONIX) 20 mg tablet blood sugar diagnostic (BLOOD GLUCOSE TEST) test strip Lancets lancets Blood Sugar Diagnostic, Drum (ACCU-CHEK COMPACT TEST) Strp blood-glucose meter, drum-type(ACCU-CHEK COMPACT PLUS CARE KIT) semaglutide (OZEMPIC) 0.25 mg or 0.5 mg (2 mg/3 mL) pen Health Maintenance (more content not included)... [facility] 01-29-2025 History of Present illness Narrative Images from the original note were not included. Gabby Guillen is a 79 year old female here for a Medicare wellness visit. Medicare Health Risk Assessment General Health Good Exercise: Minutes/Day 40 min Exercise: Days/Week 3 days Alcohol: Daily Use Monthly or less Alcohol: Drinks/Day 1 or 2 Alcohol: 6 or more drinks Never Feel off balance Yes Concerns: Teeth/Dentures Yes Concerns: Sexual function No Troubled by feelings Stressed Frequency: Eating healthy diet Nearly every day ADLs requiring help None of the above Safety precautions in home/vehicle Yes Smoke, vape, chews tobacco No Difficulty hearing Yes, I wear a hearing aid Difficulty seeing Yes Current Providers Specialists: I have reviewed specialist-related care of the patient in the medical record. Medical/Family history review Reviewed and updated problem list, medical/surgical/family/social history, medications, and allergies. Opioid use review Opioid Medications (last 90 days) No data to display Anxiety/Depression screening LEE-7 Score: 5 (Mild Anxiety) Recommendation: no further intervention at this time Cognitive screening Mini Cog Score: 5 Cognitive screening reviewed and No further action needed (score 3-5). Functional Observation Was the patient's Timed Up & Go test unsteady or >= 12 seconds? Yes Advance Care Planning Surrogate decision maker and/or advance care plan documented Measurements BP 142/79 Pulse 65 Resp 16 Wt 64 kg (141 lb 3.2 oz) BMI 27.58 kg/m Vision Screening: Follows with optometry/ophthalmology Assessment/Plan Medicare annual wellness visit, subsequent (Z00.00) - Counseled on healthy diet and regular exercise - Fall avoidance information provided - Personalized prevention plan provided Reason for Visit Follow up HPI Gabby Guillen is a 79-year-old female with a history of breast cancer, NAFLD, and hypercholesterolemia, presenting for a follow-up visit. Gabby reports persistent fatigue, particularly in the mornings, which she attributes to not being a morning person. She notes increased energy later in the day. She denies engaging in formal exercise but describes herself as physically active, engaging in activities such as gardening and walking. She estimates she spends about 30 minutes gardening several days a week, interspersed with other activities like quilting and sewing. She expresses a preference for exercising with others and mentions that she would attend [employer] if it were closer. Gabby reports issues with her dentures, describing them as really loose and causing discomfort. She has a scheduled appointment with Dr. Ramirez to address these issues. She also mentions a recent quote of $12,000 for dental work, which she declined. Gabby reports concerns about balance, stating, I've been losing my balance. That's what scares me. She expresses reluctance to attend physical therapy due to the cost. She reports palpable lumps in her chest and breast areas, which she describes as lymph nodes. She has a history of a lumpectomy for precancerous lesions but did not undergo radiation or chemotherapy. She reports a family history of breast cancer, with her mother having from the disease. She mentions that her last mammogram was in 2022. 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 Bose, a trimmer tailer, to address this issue. She also mentions a history of genital herpes, which she discovered while reviewing her medical records but is not sure that is accurate She is currently taking Ozempic 0.25 mg weekly, with her last dose taken on Monday. She reports stable weight but expresses a desire to lose weight, aiming for 125 lbs. She is not currently taking thyroid medication. She has not yet started Repatha due to insurance issues and mentions a previous intolerance to statins. She also reports being prescribed a medication for NAFLD, which she did not take due to the cost being over $1,000 per month. SOCIAL HISTORY[1] Past medical history, appointments, medications, allergies reviewed. Pertinent Lab/Diagnostic Studies are reviewed and discussed today Current Outpatient Medications: valACYclovir (VALTREX) 500 mg tablet betamethasone dipropionate, augmented (DIPROLENE) 0.05 % cream carvedilol (COREG) 3.125 mg tablet REPATHA PUSHTRONEX 420 mg/3.5 mL wearable injector hydrocortisone 2.5 % cream losartan (COZAAR) 100 mg tablet DULoxetine (CYMBALTA) [address] (PROTONIX) 20 mg tablet blood sugar diagnostic (BLOOD GLUCOSE TEST) test strip Lancets lancets Blood Sugar Diagnostic, Drum (ACCU-CHEK COMPACT TEST) Strp blood-glucose meter, drum-type(ACCU-CHEK COMPACT PLUS CARE KIT) semaglutide (OZEMPIC) 0.25 mg or 0.5 mg (2 mg/3 mL) pen Health Maintenance Depression Screening Anxiety Screening DTaP,Tdap,Td Vaccine(2 - Td or Tdap) Advance Directive Discussion Medicare Advantage Annual Wellness Visit Influenza Vaccine(1)@ Review Of Systems Constitutional: (+) fatigue, (+) weight gain Ears/Nose/Mouth/Throat: (+) denture discomfort, (+) oral cold sores Breast: (+) breast lumps, (+) breast pain Cardiovascular: (+) chest pain Neurological: (+) balance difficulty Hematologic/Lymphatic: (+) swollen glands Physical Exam BP 142/79 Pulse 65 Resp 16 Wt 64 kg (141 lb 3.2 oz) BMI 27.58 kg/m GENERAL: NAD, alert and oriented. SKIN: Unremarkable, no rash or skin lesions. HEAD: Normocephalic. EYES: PERRLA, EOMI, conjunctiva clear. EARS: External ears normal, canals clear, TM's normal. LUNGS: Clear to auscultation bilaterally, no wheezes/rhonchi/rales. HEART: Regular rate and rhythm, no murmurs. No ectopy. EXTREMITIES: Normal, no deformities, no skin discoloration, no edema. BREASTS: Multiple scars noted bilaterally. Palpable lymph nodes noted bilaterally. NEURO: Awake, alert and oriented x3, cranial nerves II-XII grossly intact, normal gait, no involuntary motions. Labs: - Hemoglobin A1c: 5.1 - TSH: Normal Imaging: - (2022) Mammogram Tests: - Hepatic elastography: Stage 3 or 4 advanced hepatic fibrosis - Lumpectomy pathology: Pre-cancerous lesion Assessment and Plan 1. Type 2 diabetes mellitus with diabetic peripheral angiopathy without gangrene, without long-term current use of insulin (HCC) (E11.51) HbA1c recently measured at 5.1%. Patient is currently taking Ozempic 0.25 mg weekly, with weight stable around 139-141 lbs. - Continue Ozempic 0.25 mg weekly; refill provided for 1 year, 90 days at a time. - Advised patient to maintain weight at or above 140 lbs and to avoid weight loss below this threshold. - Encouraged increased physical activity. 2. Essential hypertension (I10) Blood pressure to be rechecked. - Recheck blood pressure. 3. Mixed hyperlipidemia (E78.2) Patient does not tolerate statins and has not started Repatha due to insurance issues. - Discuss alternative therapy, such as Nexletol, with Dr. Barber at next month s appointment. 4. Benign breast lumps (N63.0) 5. Breast nodule (N63.0) 6. H/O lumpectomy (Z98.890) Patient has a history of lumpectomy for pre-cancerous lesions. Currently presents with palpable nodules and lymphadenopathy. - Order bilateral breast ultrasound and diagnostic mammogram. 7. 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 Unable to obtain prescribed Resdifroun due to cost. - Discuss alternative treatment options with Dr. Gilmore. 8. Need for vaccination (Z23) Voice recognition software was used to compose this office note. Please excuse any unintended typographical errors. Recording using ambient AI software for draft documentation of the visit was discussed with the patient/authorized customer retention representative; all questions welcomed and answered. Patient/authorized customer retention representative agreed to proceed Rodrigo Salas MD [1] Social History Tobacco Use Smoking status: Never Smokeless tobacco: Never Vaping Use Vaping status: Never Used Substance Use Topics Alcohol use: Not Currently Drug use: Never documented in this encounter [facility] 12-31-2024 Evaluation note Diagnosis Onset Date Resolution GERD (gastroesophageal reflux disease) chronic December 31 10:19am NAFLD (nonalcoholic fatty liver disease) chronic December 10:19am [facility] Work Phone: 1(444) 823-865507-31-2025 Telephone encounter Note* Telephone Encounter - Toña Salughter RPh - 12/12/2024 3:42 PM EDT The Repatha Pushtronex system has been discontinued; however, the Repatha SureClick auto injector is still active and available. The available Repatha SureClick auto injector is only available in the 140 mg/ml single-dose injector. To administer the originally prescribed dose of 450 mg once monthly, it is recommended to administer 3 separate subcutaneous 140 mg injections consecutively within a 30-minute period. OR alternative dosing for secondary prevention for Repatha is 140 mg every 2 weeks. Toña Slaughter, Marco, BCACP Primary Care Clinical Railroad Firer/Fireman (Covering for Lizzy Silverman PharmD) [facility] Work Phone: 1(332) 296-254807-31-2025 Miscellaneous Notes* Telephone Encounter - Toña Slaughter RPh - 12/12/2024 3:42 PM EDT The Repatha Pushtronex system has been discontinued; however, the Repatha SureClick auto injector is still active and available. The available Repatha SureClick auto injector is only available in the 140 mg/ml single-dose injector. To administer the originally prescribed dose of 450 mg once monthly, it is recommended to administer 3 separate subcutaneous 140 mg injections consecutively within a 30-minute period. OR alternative dosing for secondary prevention for Repatha is 140 mg every 2 weeks. Toña Slaughter, PharmD, BCACP Primary Care Clinical Railroad Firer/Fireman (Covering for Lizzy Silverman PharmD) * Telephone Encounter - Rodrigo Salas MD - 12/12/2024 1:46 PM EDT Lizzy, Would you happen to know what medication is replacing Repatha? Thanks, Regards, Rodrigo Salas MD * Telephone Encounter - Ava Alexandra RN - 12/12/2024 1:02 PM EDT [facility] form [facility] calling regarding Repatha Pushtronex order received by Dr. Salas. [facility] reports they received a notice from the tree scout that this product has been discontinued. Belkys askingif Dr. Salas would like to check her references and see if there is another type of Repatha she would like ordered. Ava Alexandra RN [facility] Telephone encounter Note * Telephone Encounter - Citlali Turk LPN - 12/12/2024 3:21 PM EDT Patient needs to contact office. Citlali Turk LPN [facility]07-31-2025 Miscellaneous Notes* Telephone Encounter - Citlali Turk LPN - 12/12/2024 3:21 PM EDT Patient needs to contact office. Citlali Turk LPN [facility] Telephone encounter Note * Telephone Encounter - Citlali Turk LPN - 12/12/2024 2:04 PM EDT Patient needs to contact office. Citlali Turk LPN [address]31-2025 Miscellaneous Notes* Telephone Encounter - Citlali Turk LPN - 12/12/2024 2:04 PM EDT Patient needs to contact office. Citlali Turk LPN [facility] Telephone encounter Note * Telephone Encounter - Rodrigo Salas MD - 12/12/2024 1:46 PM EDT Lizzy, Would you happen to know what medication is replacing Repatha? Thanks, Regards, Rodrigo Salas MD [facility]07-31-2025 Telephone encounter Note* Telephone Encounter - Ava Alexandra RN - 12/12/2024 1:02 PM EDT [facility] form [facility] Pharmacy calling regarding Repatha Pushtronex order received by Dr. Salas. [facility] reports they received a notice from the tree scout that this product has been discontinued. Belkys askingif Dr. Salas would like to check her references and see if there is another type of Repatha she would like ordered. Ava Alexandra RN [facility]07-24-2025 Radiology Diagnostic study note [facility] [address] [place] [address] ABD Limited w/ Elastography MR#: [id number] Acct: [id number] Name: GABBY GUILLEN Rep #: [id number] : 1945 F 79 From: Shy Agosto MD PCP: Dr. Rodrigo Salas MD Status: REG C TALIA Study:ABD Limited w/ Elastography Date of Exa m: 12/03/24 Exam# [id number] Ordering Dr: Alecia Padilla PROCEDURE: ABD LIMITED W/ ELASTOGRAPHY REASON FOR EXAM: FATTY LIVER COMPARISON: Abdominal ultrasound 01/09/2024. TECHNIQUE: Right upper quadrant abdominal ultrasound. Ayaka ElastQ Imaging shear wave elastography for non-invasive assessment of liver tissue stiffness. Ayaka EPIQ Elite. FINDINGS: LIVER: Size: Normal in size and echogenicity, measuring 14.8 cm. The bile ducts are within normal limits. The major portal vein is patent with normal directional flow at midline. Contour: Normal Lesions: None identified Elastography: EQI Med: 16.0 kPa EQI Med Deniz: 2.3 m/s IQR/Med: 14.9/8.2 %* GALLBLADDER: Prior cholecystectomy. COMMON BILE DUCT: Normal measuring 0.4 cm. PANCREAS: Obscured by bowel gas. Visualized portions of the right kidney are unremarkable. No right upper quadrant ascites. US/ABD Limited w/ Elastography IMPRESSION: MODERATE TO SEVERE HEPATIC FIBROSIS. Metavir score of F3-F4, unchanged since prior examination. Prior cholecystectomy. Reference Values: SRU <1.37 m/s (5.7kPa): No to mild fibrosis 1.37 m/s - 2.2 m/s: Moderate to severe fibrosis >2.2 m/s (15kPa): Significant fibrosis / cirrhosis METAVIR Score F2 or higher: 1.34 m/s (5.7kPa) F3 or higher: 1.55 m/s (7.3kPa) F4: 1.80 m/s (10kPa) * If the IQR/Med is >30%, the variance in the measurements is a large and the accuracy of the measurement may be in question. Reading Location: [id number] CC: Dr. Rodrigo Salas MD; ODILON Ross ~ Intern Retail: Signed [facility]07-21-2025 Telephone encounter Note* Telephone Encounter - Nella Navarrete LPN - 12/02/2024 1:48 PM EDT PATIENT is questioning the directions of carvedilol. PATIENT stated that insurance is not covering repatha. Is there another medication to try? Please advise Prescription Refill Information The patient has been identified by name and date of : Yes Caregiver verified no other encounters exist for this prescription request: yes Caregiver confirmed with patient/requestor that no other refills are due, in the near future, with this provider at this time: Yes The last office visit in the department: 06/19/24 Does the patient have a future office visit with this provider/department: Yes Requested Prescriptions Pending Prescriptions Disp Refills carvedilol (COREG) 3.125 mg tablet 180 tablet 3 Sig: Take 1 tablet by mouth two times a day with meals. Nella Navarrete LPN December 02, 2024 1:49 PM [facility]07-21-2025 Miscellaneous Notes* Telephone Encounter - Nella Navarrete LPN - 12/02/2024 1:48 PM EDT PATIENT is questioning the directions of carvedilol. PATIENT stated that insurance is not covering repatha. Is there another medication to try? Please advise Prescription Refill Information The patient has been identified by name and date of : Yes Caregiver verified no other encounters exist for this prescription request: yes Caregiver confirmed with patient/requestor that no other refills are due, in the near future, with this provider at this time: Yes The last office visit in the department: 06/19/24 Does the patient have a future office visit with this provider/department: Yes Requested Prescriptions Pending Prescriptions Disp Refills carvedilol (COREG) 3.125 mg tablet 180 tablet 3 Sig: Take 1 tablet by mouth two times a day with meals. Nella Navarrete LPN December 02, 2024 1:49 PM [facility] Telephone encounter Note * Telephone Encounter - Citlali Turk LPN - 11/21/2024 1:24 PM EDT Patient needs to contact office. Citlali Turk LPN [facility]07-10[facility]25 Miscellaneous Notes* Telephone Encounter - Citlali Turk LPN - 11/21/2024 1:24 PM EDT Patient needs to contact office. Citlali Turk LPN documented in this encounterSy[facility]06-[facility] Telephone encounter Note * Telephone Encounter - Sheri Vidal RN - 10/30/2024 9:49 AM EDT Patient ordered Repatha by PCP due to elevated cholesterol. Patient scheduled in [place] in February. Sheri Vidal RN [facility] Miscellaneous Notes* Telephone Encounter - Sheri Vidal RN - 10/30/2024 9:49 AM EDT Patient ordered Repatha by PCP due to elevated cholesterol. Patient scheduled in [place] in February. Sheri Vidal RN * Telephone Encounter - Hazel Peck - 10/29/2024 12:09 PM EDT Patient needs seen sooner than June 2025 as PCP thinks patient may benefit from Repatha Injections. Please advise patient if there is a sooner appointment available. documented in this encounterSy[facility]06-[facility]25 Telephone encounter Note * Telephone Encounter - Mary Eduardo LPN - 10/29/2024 4:15 PM EDT Images from the original note were not included. Prior authorization approved Payer: FRANK Arriaza [phone] Approval Details Authorized from May 15, 2024 to May 14, 2025 Electronic appeal: Not supported View History Notes Time User Attachment Attachment received from payer. 10/29/2024 4:11 PM C[facility], Rx Priorauth In Document Medication Being Authorized REPATHA PUSHTRONEX 420 mg/3.5 mL wearable injector 3.5 mL by IM/SQ route once every month. Dispense: 10.5 mL Refills: 5 FACUNDO Start: 10/29/2024 Class: Normal Diagnoses: Mixed hyperlipidemia This order has been released to its destination. To be filled at: [facility]/pharmacy #[id number] [place] [address] [id number] [facility] [phone] [facility] [id number] Pharmacy notified. [facility] Miscellaneous Notes* Telephone Encounter - Mary Eduardo LPN - 10/29/2024 4:15 PM EDT Images from the original note were not included. Prior authorization approved Payer: FRANK Arriaza [phone] Approval Details Authorized from May 15, 2024 to May 14, 2025 Electronic appeal: Not supported View History Notes Time User Attachment Attachment received from payer. 10/29/2024 4:11 PM Cchs, Rx Priorauth In Document Medication Being Authorized REPATHA PUSHTRONEX 420 mg/3.5 mL wearable injector 3.5 mL by IM/SQ route once every month. Dispense: 10.5 mL Refills: 5 FACUNDO Start: 10/29/2024 Class: Normal Diagnoses: Mixed hyperlipidemia This order has been released to its destination. To be filled at: [id number] [place] [address] [address] [facility] - [phone] [id number] Pharmacy notified. * Telephone Encounter - Mary Eduardo LPN - 10/29/2024 4:01 PM EDT Electronic PA rec'd and completed for REPATHA PUSHTRONEX 420 mg/3.5 mL wearable injector documented in this encounterSycam[facility] Center06-17-2025 Telephone encounter Note * Telephone Encounter - Mary Eduardo LPN - 10/29/2024 4:01 PM EDT Electronic PA rec'd and completed for REPATHA PUSHTRONEX 420 mg/3.5 mL wearable injector [facility]06-17-[facility] Telephone encounter Note* Telephone Encounter - Hazel Peck - 10/29/2024 12:09 PM EDT Patient needs seen sooner than June 2025 as PCP thinks patient may benefit from Repatha Injections. Please advise patient if there is a sooner appointment available. [facility]25 NoteHNO ID: [id number] Author: RODRIGO SALAS MD Service: ? Author Type: Physician Type: Progress Notes Filed: 10/29/2024 15:07 Note Text: Reason for Visit Chronic medication follow up HPI Gabby Guillen is a 79-year-old female with a history of hypercholesterolemia, CAD, sleep apnea, and fatty liver disease, presenting for evaluation of elevated cholesterol levels. Gabby reports recent blood work showing elevated cholesterol levels, with LDL being very high. She has a history of hypercholesterolemia and has been off cholesterol medication for the past few years. She was previously on Repatha but discontinued it due to access issues. She has a history of statin intolerance. She has an upcoming appointment with her spiral binder, Dr. Downing, in November. She has a history of CAD with arterial blockages and has been advised by her spiral binder that these are not currently a cause for concern. Her last cholesterol test showed an LDL of 130 mg/dL, but recent tests indicate an increase. She denies significant changes in her diet, stating that she does not consume much red meat and has not altered her dietary habits recently. She believes her hypercholesterolemia is genetic. She engages in physical activities such as walking and gardening but is not on a formal exercise program. She has a history of sleep apnea, which has improved following weight loss. She also has a history of fatty liver disease and GERD, which she describes as really bad. She reports that her medications exacerbate her heartburn. She has an upcoming appointment with her cloth framer, Dr. Alexandra, who plans to perform another liver ultrasound. Social History Tobacco Use Smoking status: Never Smokeless tobacco: Never Vaping Use Vaping status: Never Used Substance Use Topics Alcohol use: Not Currently Drug use: Never Past medical history, appointments, medications, allergies reviewed. Pertinent Lab/Diagnostic Studies are reviewed and discussed today Current Outpatient Medications: carvedilol (COREG) 3.125 mg tablet losartan (COZAAR) 100 mg tablet DULoxetine (CYMBALTA) [address] (PROTONIX) 20 mg tablet blood sugar diagnostic (BLOOD GLUCOSE TEST) test strip Blood Sugar Diagnostic, Drum (ACCU-CHEK COMPACT TEST) Strp blood-glucose meter, drum-type(ACCU-CHEK COMPACT PLUS CARE KIT) REPATHA PUSHTRONEX 420 mg/3.5 mL wearable injector hydrocortisone 2.5 % cream Lancets lancets Health Maintenance Depression Screening Anxiety Screening DTaP,Tdap,Td Vaccine(2 - Td or Tdap) Advance Directive Discussion Medicare Advantage Annual Wellness Visit@ Review Of Systems Constitutional: (-) weight gain Gastrointestinal: (+) heartburn Physical Exam BP 134/84 Pulse 65 Resp 16 Wt 63.7 kg (140 lb 6.4 oz) SpO2 98% BMI 27.42 kg/m? GENERAL: NAD, alert and oriented SKIN: unremarkable, no rash or skin lesions. HEAD: normocephalic EYES: PERRLA, EOMI, conjunctiva clear EARS: external ears normal, canals clear, TM's normal. LUNGS: Clear to auscultation bilaterally, no wheezes/rhonchi/rales. HEART: Regular rate and rhythm, no murmurs. No ectopy. EXTREMITIES: Normal, No deformities, No skin discoloration, No edema. NEURO: Awake, alert and oriented x3, cranial nerves II-XII grossly intact, normal gait, no involuntary motions Assessment and Plan 1. Type 2 diabetes mellitus with diabetic peripheral angiopathy without gangrene, without long-term current use of insulin (HCC) (E11.51) Hemoglobin A1c is well-controlled. - Continue current diabetes management regimen. 2. Coronary artery disease of [place] heart with stable angina pectoris, unspecified vessel or lesion type (I25.118) Patient has a history of coronary artery disease with stable angina. Recent lipid panel shows elevated LDL cholesterol levels. - Discussed the importance of lipid management in the context of coronary artery disease. - Referral to cardiology for further management of hyperlipidemia and statin intolerance. 3. Statin intolerance (Z78.9) Patient has a history of statin intolerance and has previously been on Repatha injections. - Discussed the potential benefits of resuming Repatha injections. - Referral to cardiology to discuss alternative lipid-lowering therapies. 4. Mixed hyperlipidemia (E78.2) Recent lipid panel shows significantly elevated LDL cholesterol levels. - Referral to cardiology for further management. 5. Essential hypertension (I10) Blood pressure readings are within acceptable range. - Continue current antihypertensive medication regimen. 6. Gastroesophageal reflux disease without esophagitis (K21.9) Patient reports worsening GERD symptoms. - Continue current GERD management. - Follow-up with Dr. Alexandra in about a month. 7. Fatty (change of) liver, not elsewhere classified (K76.0) Patient has a history of fatty liver disease. - Follow-up with Dr. Carlin for liver ultr (more content not included)... [facility]06-17-2025 History of Present illness Narrative* Rodrigo Salas MD - 10/29/2024 11:47 AM EDT Reason for Visit Chronic medication follow up HPI Gabby Guillen is a 79-year-old female with a history of hypercholesterolemia, CAD, sleep apnea, and fatty liver disease, presenting for evaluation of elevated cholesterol levels. Gabby reports recent blood work showing elevated cholesterol levels, with LDL being very high. Shehas a history of hypercholesterolemia and has been off cholesterol medication for the past few years. She was previously on Repatha but discontinued it due to access issues. She has a history of statin intolerance. She has an upcoming appointment with her spiral binder, Dr. Downing, in November. She has a history of CAD with arterial blockages and has been advised by her spiral binder that these are not currently a cause for concern. Her last cholesterol test showed an LDL of 130 mg/dL, but recent tests indicate an increase. She denies significant changes in her diet, stating that she does not consume much red meat and has not altered her dietary habits recently. She believes her hypercholesterolemia is genetic. She engages in physical activities such as walking and gardening but is not on a formal exercise program. She has a history of sleep apnea, which has improved following weight loss. She also has a history of fatty liver disease and GERD, which she describes as really bad. She reports that her medications exacerbate her heartburn. She has an upcoming appointment with her cloth framer, Dr. Alexandra, who plans to perform another liver ultrasound. Social History Tobacco Use Smoking status: Never Smokeless tobacco: Never Vaping Use Vaping status: Never Used Substance Use Topics Alcohol use: Not Currently Drug use: Never Past medical history, appointments, medications, allergies reviewed. Pertinent Lab/Diagnostic Studies are reviewed and discussed today Current Outpatient Medications: carvedilol (COREG) 3.125 mg tablet losartan (COZAAR) 100 mg tablet DULoxetine (CYMBALTA) [address] (PROTONIX) 20 mg tablet blood sugar diagnostic (BLOOD GLUCOSE TEST) test strip Blood Sugar Diagnostic, Drum (ACCU-CHEK COMPACT TEST) Strp blood-glucose meter, drum-type(ACCU-CHEK COMPACT PLUS CARE KIT) REPATHA PUSHTRONEX 420 mg/3.5 mL wearable injector hydrocortisone 2.5 % cream Lancets lancets Health Maintenance Depression Screening Anxiety Screening DTaP,Tdap,Td Vaccine(2 - Td or Tdap) Advance Directive Discussion Medicare Advantage Annual Wellness Visit@ Review Of Systems Constitutional: (-) weight gain Gastrointestinal: (+) heartburn Physical Exam BP 134/84 Pulse 65 Resp 16 Wt 63.7 kg (140 lb 6.4 oz) SpO2 98% BMI 27.42 kg/m GENERAL: NAD, alert and oriented SKIN: unremarkable, no rash or skin lesions. HEAD: normocephalic EYES: PERRLA, EOMI, conjunctiva clear EARS: external ears normal, canals clear, TM's normal. LUNGS: Clear to auscultation bilaterally, no wheezes/rhonchi/rales. HEART: Regular rate and rhythm, no murmurs. No ectopy. EXTREMITIES: Normal, No deformities, No skin discoloration, No edema. NEURO: Awake, alert and oriented x3, cranial nerves II-XII grossly intact, normal gait, no involuntary motions Assessment and Plan 1. Type 2 diabetes mellitus with diabetic peripheral angiopathy without gangrene, without long-termcurrent use of insulin (HCC) (E11.51) Hemoglobin A1c is well-controlled. - Continue current diabetes management regimen. 2. Coronary artery disease of [place] heart with stable angina pectoris, unspecified vessel or lesion type (I25.118) Patient has a history of coronary artery disease with stable angina. Recent lipid panel shows elevated LDL cholesterol levels. - Discussed the importance of lipid management in the context of coronary artery disease. - Referral to cardiology for further management of hyperlipidemia and statin intolerance. 3. Statin intolerance (Z78.9) Patient has a history of statin intolerance and has previously been on Repatha injections. - Discussed the potential benefits of resuming Repatha injections. - Referral to cardiology to discuss alternative lipid-lowering therapies. 4. Mixed hyperlipidemia (E78.2) Recent lipid panel shows significantly elevated LDL cholesterol levels. - Referral to cardiology for further management. 5. Essential hypertension (I10) Blood pressure readings are within acceptable range. - Continue current antihypertensive medication regimen. 6. Gastroesophageal reflux disease without esophagitis (K21.9) Patient reports worsening GERD symptoms. - Continue current GERD management. - Follow-up with Dr. Alexandra in about a month. 7. Fatty (change of) liver, not elsewhere classified (K76.0) Patient has a history of fatty liver disease. - Follow-up with Dr. Carlin for liver ultrasound to assess current status. 8. Obstructive sleep apnea (adult) (pediatric) (G47.33) Patient has a history of obstructive sleep apnea, which has improved with weight loss. - Continue current management. Voice recognition software was used to compose this office note. Please excuse any unintended typographical errors. Recording using ambient YODIL software for draft documentation of the visit was discussed with the patient/authorized customer retention representative; all questions welcomed and answered. Patient/authorized customer retention representative agreed to proceed Rodrigo Salas MD documented in this encounterSy[facility]06-[facility] Telephone encounter Note * Telephone Encounter - Cathi Mcqueen - 10/18/2024 10:58 AM EDT Prescription Refill Information The patient has been identified by name and date of : Yes Caregiver verified no other encounters exist for this prescription request: Yes Caregiver confirmed with patient/requestor that no other refills are due, in the near future, with this provider at this time: Yes The last office visit in the department: 07-02-24 Does the patient have a future office visit with this provider/department: Yes Requested Prescriptions Pending Prescriptions Disp Refills hydrocortisone 2.5 % cream 60 g 6 Sig: abdomenal areas as needed Cathi Jimenez October 18, 2024 10:58 AM [facility]06-[facility] Miscellaneous Notes* Telephone Encounter - Cathi Mcqueen - 10/18/2024 10:58 AM EDT Prescription Refill Information The patient has been identified by name and date of : Yes Caregiver verified no other encounters exist for this prescription request: Yes Caregiver confirmed with patient/requestor that no other refills are due, in the near future, with this provider at this time: Yes The last office visit in the department: 07-02-24 Does the patient have a future office visit with this provider/department: Yes Requested Prescriptions Pending Prescriptions Disp Refills hydrocortisone 2.5 % cream 60 g 6 Sig: abdomenal areas as needed Cathi Jimenez October 18, 2024 10:58 AM documented in this encounterSycamore [facility] Center06-[facility]-2025 NoteHNO ID: [id number] Author: LIUDMILA NORRIS, ? Service: ? Author Type: Physician Type: Progress Notes Filed: 10/14/2024 10:44 Note Text: Last saw pcp: 07/02/24 Subjective: This 79 year old female presents to clinic for diabetic foot check. Patient has the following complaints: b/l hallux ingrowing toenails with pain. Patient admits to being diabetic for 20+ years now. Patient +B/T/N in feet at this time. Patient -pain in legs when walking. No other pedal complaints at this time. No change in medications or medical history since last visit. PAIN EVALUATION No data found in the last 1 encounters. Hemoglobin A1C (%) Date Value 09/19/2024 5.3 11/28/2023 5.1 03/27/2023 5.2 12/09/2022 5.1 10/05/2022 5.3 03/23/2021 6.2 12/21/2020 6.1 09/14/2020 6.2 05/27/2020 6.4 08/08/2012 5.7 PCP: Rodrigo Salas MD PAST MEDICAL HISTORY Diagnosis Date Adjustment disorder with depressed mood 03/17/2005 Arthritis Coronary artery disease Dyspareunia 03/17/2005 Esophageal reflux Gastroesophageal reflux Esophageal reflux HLD (hyperlipidemia) HTN (hypertension) Impaired fasting glucose 03/17/2005 Mixed hyperlipidemia Myalgia and myositis, unspecified Other and unspecified hyperlipidemia 03/17/2005 PMH - PAST MEDICAL HISTORY OF TIA's PMH - PAST MEDICAL HISTORY OF skin cancer Rheumatoid arthritis(714.0) Trace cataracts 2007 Uncontrolled type 2 diabetes mellitus with hyperglycemia (HCC) 04/01/2010 Unspecified asthma(493.90) 03/17/2005 Unspecified closed fracture of ankle Unspecified essential hypertension 03/17/2005 Current Outpatient Medications Medication Sig carvedilol (COREG) 3.125 mg tablet Take 1 tablet by mouth two times a day with meals. losartan (COZAAR) 100 mg tablet Take 1 tablet by mouth once daily. DULoxetine (CYMBALTA) 30 mg capsule Take 1 capsule by mouth once daily. pantoprazole DR (PROTONIX) 20 mg tablet Take 20 mg by mouth once daily. blood sugar diagnostic (BLOOD GLUCOSE TEST) test strip Test blood sugar(s) 1 times daily. Dx: Type 2 DM - Controlled E11.9 Insulin: No Lancets lancets Test blood sugar(s) 1 times daily. Dx: Type 2 DM - Controlled E11.9 Insulin: No hydrocortisone 2.5 % cream abdomenal areas as needed Blood Sugar Diagnostic, Drum (ACCU-CHEK COMPACT TEST) Strp TEST BLOOD SUGAR ONCE DAILY. 250.00 blood-glucose meter, drum-type(ACCU-CHEK COMPACT PLUS CARE KIT) As directed REPATHA PUSHTRONEX 420 mg/3.5 mL wearable injector INJECT 3.5 ML BY INJECTION(UNSPECIFIED PARENTERAL ROUTES) ROUTE ONCE EVERY MONTH. ONCE A MONTH (Patient not taking: No sig reported) No current facility-administered medications for this visit. ALLERGIES Allergen Reactions Amlodipine Swelling Biaxin [Clarithromy* Rash Metformin Diarrhea ER formulation caused symptoms at 1 tablet per day Spironolactone Other: See Comments lightheaded and dizzy Pumahku-Bpk-Zjb Red* Intolerance myalgia and diarrhea PAST SURGICAL HISTORY Procedure Laterality Date ABDOMINAL SURGERY HX ADENOIDECTOMY PRIMARY Adenoidectomy ADENOIDECTOMY SECONDARY AGE 12/> APPENDECTOMY age 30s incidental to [facility] APPENDECTOMY HX BIOPSY BREAST OPEN INCISIONAL Bx of breast, incisional x3 both BREAST SURGERY HX CHOLECYSTECTOMY Cholecystectomy CHOLECYSTECTOMY COLONOSCOPY FLX DX W/COLLJ SPEC WHEN PFRMD 08/2002 Colonoscopy COLONOSCOPY FLX DX W/COLLJ SPEC WHEN PFRMD 2010 Colonoscopy COLONOSCOPY SCREENING 07/07/2021 EGD W/O BRSH SPEC VARICIES INJ 07/07/2021 ESOPHAGOGASTRODUODENOSCOPY TRANSORAL DIAGNOSTIC EGD ESOPHAGOGASTRODUODENOSCOPY TRANSORAL DIAGNOSTIC 08/2002 EGD ESOPHAGOGASTRODUODENOSCOPY TRANSORAL DIAGNOSTIC 04/14/2011 EGD EYE SURGERY HX INCISE FINGER TENDON SHEATH Right 09/04/2024 Right trigger thumb release KNEE LEFT OP SURGERY LUMPECTOMY/RADIOTHERAPY DIAG MAMM/A10 1980s bilat NEUROPLASTY AND/TRANSPOS MEDIAN NRV CARPAL TUNNE both PAST SURGICAL HISTORY OF benign leg tumor PAST SURGICAL HISTORY OF multiple brest lumpectomy x3 benign both PAST SURGICAL HISTORY OF facial/mouth surgery PAST SURGICAL HISTORY OF dental surgery PAST SURGICAL HISTORY OF bladder/colon with fistula tumor benign PAST SURGICAL HISTORY OF benign tumor from right lower leg PAST SURGICAL HISTORY OF 04/27/2005 right shoulder scope and debridement SKIN BIOPSY HX TONSILLECTOMY HX TONSILLECTOMY PRIMARY/SECONDARY Tonsillectomy TOTAL ABDOMINAL HYSTERECT W/WO RMVL TUBE OVARY Hysterectomy, SARAH + BSO in stages VAGINAL HYSTERECTOMY FAMILY HISTORY Problem Relation Age of Onset Hypertension Mother Breast Cancer Mother Diabetes Father Heart Father Hypertension Father Hypertension Sister Hypertension Brother 3 brothers all with hypertension diabetes all have this Thyroid Daughter Hypertension Son Diabetes Son Cancer Daughter thyroid Diabetes Sister x 2 both have diabetes Cancer Brother All 3 Brothers Hypertension Other (more content not included)...[facility]06-02-2025 History of Present illness Narrative* Liudmila Norris - 10/14/2024 10:25 AM EDT Last saw pcp: 07/02/24 Subjective: This 79 year old female presents to clinic for diabetic foot check. Patient has the following complaints: b/l hallux ingrowing toenails with pain. Patient admits to being diabetic for 20+years now. Patient +B/T/N in feet at this time. Patient -pain in legs when walking. No other pedal complaints at this time. No change in medications or medical history since last visit. PAIN EVALUATION No data found in the last 1 encounters. Hemoglobin A1C (%) Date Value 09/19/2024 5.3 11/28/2023 5.1 03/27/2023 5.2 12/09/2022 5.1 10/05/2022 5.3 03/23/2021 6.2 12/21/2020 6.1 09/14/2020 6.2 05/27/2020 6.4 08/08/2012 5.7 PCP: Rodrigo Salas MD PAST MEDICAL HISTORY Diagnosis Date Adjustment disorder with depressed mood 03/17/2005 Arthritis Coronary artery disease Dyspareunia 03/17/2005 Esophageal reflux Gastroesophageal reflux Esophageal reflux HLD (hyperlipidemia) HTN (hypertension) Impaired fasting glucose 03/17/2005 Mixed hyperlipidemia Myalgia and myositis, unspecified Other and unspecified hyperlipidemia 03/17/2005 PMH - PAST MEDICAL HISTORY OF TIA's PMH - PAST MEDICAL HISTORY OF skin cancer Rheumatoid arthritis(714.0) Trace cataracts 2007 Uncontrolled type 2 diabetes mellitus with hyperglycemia (HCC) 04/01/2010 Unspecified asthma(493.90) 03/17/2005 Unspecified closed fracture of ankle Unspecified essential hypertension 03/17/2005 Current Outpatient Medications Medication Sig carvedilol (COREG) 3.125 mg tablet Take 1 tablet by mouth two times a day with meals. losartan (COZAAR) 100 mg tablet Take 1 tablet by mouth once daily. DULoxetine (CYMBALTA) 30 mg capsule Take 1 capsule by mouth once daily. pantoprazole DR (PROTONIX) 20 mg tablet Take 20 mg by mouth once daily. blood sugar diagnostic (BLOOD GLUCOSE TEST) test strip Test blood sugar(s) 1 times daily. Dx: Type 2 DM - Controlled E11.9 Insulin: No Lancets lancets Test blood sugar(s) 1 times daily. Dx: Type 2 DM - Controlled E11.9 Insulin: No hydrocortisone 2.5 % cream abdomenal areas as needed Blood Sugar Diagnostic, Drum (ACCU-CHEK COMPACT TEST) Strp TEST BLOOD SUGAR ONCE DAILY. 250.00 blood-glucose meter, drum-type(ACCU-CHEK COMPACT PLUS CARE KIT) As directed REPATHA PUSHTRONEX 420 mg/3.5 mL wearable injector INJECT 3.5 ML BY INJECTION(UNSPECIFIED PARENTERAL ROUTES) ROUTE ONCE EVERY MONTH. ONCE A MONTH (Patient not taking: No sig reported) No current facility-administered medications for this visit. ALLERGIES Allergen Reactions Amlodipine Swelling Biaxin [Clarithromy* Rash Metformin Diarrhea ER formulation caused symptoms at 1 tablet per day Spironolactone Other: See Comments lightheaded and dizzy Xdvslzp-Qwu-Gzq Red* Intolerance myalgia and diarrhea PAST SURGICAL HISTORY Procedure Laterality Date ABDOMINAL SURGERY HX ADENOIDECTOMY PRIMARY <AGE 12 child Adenoidectomy ADENOIDECTOMY SECONDARY AGE 12/> APPENDECTOMY age 30s incidental to [facility] APPENDECTOMY HX BIOPSY BREAST OPEN INCISIONAL Bx of breast, incisional x3 both BREAST SURGERY HX CHOLECYSTECTOMY Cholecystectomy CHOLECYSTECTOMY COLONOSCOPY FLX DX W/COLLJ SPEC WHEN PFRMD 08/2002 Colonoscopy COLONOSCOPY FLX DX W/COLLJ SPEC WHEN PFRMD 2010 Colonoscopy COLONOSCOPY SCREENING 07/07/2021 EGD W/O BRSH SPEC VARICIES INJ 07/07/2021 ESOPHAGOGASTRODUODENOSCOPY TRANSORAL DIAGNOSTIC EGD ESOPHAGOGASTRODUODENOSCOPY TRANSORAL DIAGNOSTIC 08/2002 EGD ESOPHAGOGASTRODUODENOSCOPY TRANSORAL DIAGNOSTIC 04/14/2011 EGD EYE SURGERY HX INCISE FINGER TENDON SHEATH Right 09/04/2024 Right trigger thumb release KNEE LEFT OP SURGERY LUMPECTOMY/RADIOTHERAPY DIAG MAMM/A10 1980s bilat NEUROPLASTY &/TRANSPOS MEDIAN NRV CARPAL TUNNE both PAST SURGICAL HISTORY OF benign leg tumor PAST SURGICAL HISTORY OF multiple brest lumpectomy x3 benign both PAST SURGICAL HISTORY OF facial/mouth surgery PAST SURGICAL HISTORY OF dental surgery PAST SURGICAL HISTORY OF bladder/colon with fistula tumor benign PAST SURGICAL HISTORY OF benign tumor from right lower leg PAST SURGICAL HISTORY OF 04/27/2005 right shoulder scope and debridement SKIN BIOPSY HX TONSILLECTOMY HX TONSILLECTOMY PRIMARY/SECONDARY <AGE 12 chil Tonsillectomy TOTAL ABDOMINAL HYSTERECT W/WO RMVL TUBE OVARY Hysterectomy, SARAH + BSO in stages VAGINAL HYSTERECTOMY FAMILY HISTORY Problem Relation Age of Onset Hypertension Mother Breast Cancer Mother Diabetes Father Heart Father Hypertension Father Hypertension Sister Hypertension Brother 3 brothers all with hypertension diabetes all have this Thyroid Daughter Hypertension Son Diabetes Son Cancer Daughter thyroid Diabetes Sister x 2 both have diabetes Cancer Brother All 3 Brothers Hypertension Other Several Family Member Social History Tobacco Use Smoking status: Never Smokeless tobacco: Never Vaping Use Vaping status: Never Used Substance Use Topics Alcohol use: Not Currently Drug use: Never REVIEW OF SYSTEMS GENERAL: Negative for Malaise, significant weight loss, fever RESPIRATORY: Negative for cough, wheezing and shortness of breath CARDIOVASCULAR: Negative for chest pain, leg swelling and palpitations GI: Negative for abdominal discomfort, blood in stools or black stools and change in bowel habits : Negative for dysuria, frequency and incontinence MUSCULOSKELETAL: Negative for joint pain or swelling, back pain, and muscle pain. SKIN: Negative for lesions, rash, and itching. HEMATOLOGY/LYMPHOLOGY Negative for prolonged bleeding, bruising easily, and swollen nodes. ENDOCRINE: Negative for cold or heat intolerance, polyuria, polydipsia and goiter. NEURO: negative The remainder of the review of systems is noncontributory. Objective: Patient presents to clinic ambulating in sneakers Constitutional: Pt is a well developed 79 year old female who is alert, oriented, cooperative and in no apparent distress. Eyes: Following during examination. No redness or drainage. Respiratory: RR normal and nonlabored. Even breathing. No evidence of distress. Psychology: Patient is engaged during conversation. Normal affect and mood. Does not appear depressed or anxious. Vasc: DP and PT pulses are faintly palpable bilateral. CFT is less than 5 seconds bilateral. Skin temperature is warm to warm proximal to distal bilateral. There is mild edema or varicosities noted. Hair growth decreased. Neuro: Protective sensation is decreased to the foot and toes when tested with the 5.07 SWM bilateral. Vibratory sensation is decreased at the hallux bilateral. + Significant neurological defecits. Derm: Inspection and palpation performed. Nails 1 b/l are incurvated, painful, discolored-yellow, thick, crumbly, dystrophic and with subungal debris. Skin is of normal turgor and texture. Hyperkeratosis noted to not present. NO ulcerations, scars, verruca or other lesions noted. Ortho: Ankle joint DF is full with the knee extended and full with knee flexed. No pain or crepitusnoted. STJ, MTJ ROM are full and free of pain or crepitus. Muscle strength is 5/5 for dorsiflexors,plantarflexors, inverters, everters. Digital deformities include none. Assessment: (E11.42) Diabetic polyneuropathy associated with type 2 diabetes mellitus (HCC) (primary encounter diagnosis) (L60.0) Ingrowing toenail of right foot (M79.675) Pain in toe of left foot (M79.674) Pain in toe of right foot Plan: 1. Patient was seen and evaluated. 2. Patient was instructed on the continued importance of diabetic foot care along with proper diet and keeping their blood sugar under control to prevent complications. Instructions given both oral and written. I stressed the importance of avoiding barefoot walking, wearing good shoes and inspection of feet. 3. She does have multiple lesions on left leg that warrant evaluation by dermatology. She has an appointment. She is to pursue 4. Toenails 1-5 b/l debrided in length and htickness. Discussed periodic debridement vs partial nail removal. She is going to continue with self care 5. Patient is to RTC in 1 year Liudmila Norris DPM * Miya Chávez RN - 10/14/2024 10:14 AM EDT Patient presents with: Left Foot - Established Patient, Follow Up, Diabetic Foot Check Right Foot - Established Patient, Follow Up, Diabetic Foot Check Patient presents for 1.5 year follow up diabetic foot/nail care. Also due for diabetic foot exam. MAURIZIO 05/23/23 documented in [facility]25 NoteHNO ID: [id number] Author: MIYA CHÁVEZ RN Service: ? Author Type: Registered Nurse Type: Progress Notes Filed: 10/14/2024 10:44 Note Text: Patient presents with: Left Foot - Established Patient, Follow Up, Diabetic Foot Check Right Foot - Established Patient, Follow Up, Diabetic Foot Check Patient presents for 1.5 year follow up diabetic foot/nail care. Also due for diabetic foot exam. MAURIZIO 05/23/23[facility] NoteHNO ID: [id number] Author: KURT CARDONA MD Service: ? Author Type: Physician Type: Progress Notes Filed: 10/14/2024 09:25 Note Text: Kurt Cardona MD Department of Orthopaedics Orthopaedics [address] [place] [address] Dept: [phone] Dept October 14, 2024 CHIEF COMPLAINT: Post Op of the Right Hand. Patient here today for 5 weeks 4 days post op right trigger thumb release. She does still have some intermittent pain. ASSESSMENT: M65.311 Trigger thumb of right hand (primary encounter diagnosis) PLAN: She is doing quite well after surgery. She has no locking or catching. Just some general soreness in both hands consistent with her arthritis. The thumb specifically is just a bit achy at times but she is using it much better than preoperatively. She can follow-up on an as-needed basis. Exam: Healed incision without any issues. Mild and appropriate pinkness and firmness. No locking or catching. Neurovascular exam intact Supporting Information Below: Medications: Current Outpatient Medications Medication Sig carvedilol (COREG) 3.125 mg tablet Take 1 tablet by mouth two times a day with meals. losartan (COZAAR) 100 mg tablet Take 1 tablet by mouth once daily. DULoxetine (CYMBALTA) 30 mg capsule Take 1 capsule by mouth once daily. pantoprazole DR (PROTONIX) 20 mg tablet Take 20 mg by mouth once daily. hydrocortisone 2.5 % cream abdomenal areas as needed REPATHA PUSHTRONEX 420 mg/3.5 mL wearable injector INJECT 3.5 ML BY INJECTION(UNSPECIFIED PARENTERAL ROUTES) ROUTE ONCE EVERY MONTH. ONCE A MONTH (Patient not taking: No sig reported) blood sugar diagnostic (BLOOD GLUCOSE TEST) test strip Test blood sugar(s) 1 times daily. Dx: Type 2 DM - Controlled E11.9 Insulin: No Lancets lancets Test blood sugar(s) 1 times daily. Dx: Type 2 DM - Controlled E11.9 Insulin: No Blood Sugar Diagnostic, Drum (ACCU-CHEK COMPACT TEST) Strp TEST BLOOD SUGAR ONCE DAILY. 250.00 blood-glucose meter, drum-type(ACCU-CHEK COMPACT PLUS CARE KIT) As directed No current facility-administered medications for this visit. Allergies: Amlodipine, Biaxin [Clarithromycin], Metformin, Spironolactone, and Xasszra-Lez-Fvw Reductase Inhibitors [facility] History of Present illness Narrative* Kurt Cardona MD - 10/14/2024 8:57 AM EDT Kurt Cardona MD Department of Orthopaedics Orthopaedics [address] [facility] [address] Dept: [phone] Dept October 14, 2024 CHIEF COMPLAINT: Post Op of the Right Hand. Patient here today for 5 weeks 4 days post op right trigger thumb release. She does still have someintermittent pain. ASSESSMENT: M65.311 Trigger thumb of right hand (primary encounter diagnosis) PLAN: She is doing quite well after surgery. She has no locking or catching. Just some general soreness in both hands consistent with her arthritis. The thumb specifically is just a bit achy at times but she is using it much better than preoperatively. She can follow-up on an as-needed basis. Exam: Healed incision without any issues. Mild and appropriate pinkness and firmness. No locking or catching. Neurovascular exam intact Supporting Information Below: Medications: Current Outpatient Medications Medication Sig carvedilol (COREG) 3.125 mg tablet Take 1 tablet by mouth two times a day with meals. losartan (COZAAR) 100 mg tablet Take 1 tablet by mouth once daily. DULoxetine (CYMBALTA) 30 mg capsule Take 1 capsule by mouth once daily. pantoprazole DR (PROTONIX) 20 mg tablet Take 20 mg by mouth once daily. hydrocortisone 2.5 % cream abdomenal areas as needed REPATHA PUSHTRONEX 420 mg/3.5 mL wearable injector INJECT 3.5 ML BY INJECTION(UNSPECIFIED PARENTERAL ROUTES) ROUTE ONCE EVERY MONTH. ONCE A MONTH (Patient not taking: No sig reported) blood sugar diagnostic (BLOOD GLUCOSE TEST) test strip Test blood sugar(s) 1 times daily. Dx: Type 2 DM - Controlled E11.9 Insulin: No Lancets lancets Test blood sugar(s) 1 times daily. Dx: Type 2 DM - Controlled E11.9 Insulin: No Blood Sugar Diagnostic, Drum (ACCU-CHEK COMPACT TEST) Strp TEST BLOOD SUGAR ONCE DAILY. 250.00 blood-glucose meter, drum-type(ACCU-CHEK COMPACT PLUS CARE KIT) As directed No current facility-administered medications for this visit. Allergies: Amlodipine, Biaxin [Clarithromycin], Metformin, Spironolactone, and Ofviccv-Thv-Hnu Reductase Inhibitors Kurt Cardona MD documented in this encounterSy[facility]05-05-2025 NoteHNO ID: [id number] Author: GRETCHEN GARCIA PA-C Service: ? Author Type: Physician Supervisor [employer] Type: Progress Notes Filed: 09/16/2024 10:46 Note Text: Gretchen Garcia PA-C Department of Orthopaedics Orthopaedics [address] [facility] [address] Dept: [phone] Dept September 16, 2024 CHIEF COMPLAINT: Established Patient and Post Op of the Right Hand. ASSESSMENT: M65.311 Trigger thumb of right hand (primary encounter diagnosis) SUMMARY/PLAN: Patient presents 1 week and 4 days status post right trigger thumb release. She is doing well, having some intermittent 4 out of 10 aching pain mainly at the IP joint. We discussed proper hand washing, no soaking of the operative hand. No heavy lifting, pushing or pulling with the operative hand, encourage gentle motion. We discussed scar massage. Follow up as planned. Exam: Incision site is well approximated without erythema or drainage. Mild but appropriate edema without ecchymosis. No locking or catching of the digits. Neurologically intact. Imaging: Deferred today Ms. Gabby Guillen was advised as to contrast therapies and/or to take analgesics/anti-inflammatories as needed and all contraindications were reviewed. Supporting Information Below: Medications: Current Outpatient Medications Medication Sig carvedilol (COREG) 3.125 mg tablet Take 1 tablet by mouth two times a day with meals. losartan (COZAAR) 100 mg tablet Take 1 tablet by mouth once daily. DULoxetine (CYMBALTA) 30 mg capsule Take 1 capsule by mouth once daily. pantoprazole DR (PROTONIX) 20 mg tablet Take 20 mg by mouth once daily. hydrocortisone 2.5 % cream abdomenal areas as needed REPATHA PUSHTRONEX 420 mg/3.5 mL wearable injector INJECT 3.5 ML BY INJECTION(UNSPECIFIED PARENTERAL ROUTES) ROUTE ONCE EVERY MONTH. ONCE A MONTH (Patient not taking: No sig reported) blood sugar diagnostic (BLOOD GLUCOSE TEST) test strip Test blood sugar(s) 1 times daily. Dx: Type 2 DM - Controlled E11.9 Insulin: No Lancets lancets Test blood sugar(s) 1 times daily. Dx: Type 2 DM - Controlled E11.9 Insulin: No Blood Sugar Diagnostic, Drum (ACCU-CHEK COMPACT TEST) Strp TEST BLOOD SUGAR ONCE DAILY. 250.00 blood-glucose meter, drum-type(ACCU-CHEK COMPACT PLUS CARE KIT) As directed No current facility-administered medications for this visit. Allergies: Amlodipine, Biaxin [Clarithromycin], Metformin, Spironolactone, and Geewoux-Tov-Ilo Reductase Inhibitors This note was partially generated using [employer] voice recognition system, and there may be some incorrect words, spellings, and punctuation that were not noted in checking the note before saving. [facility] History of Present illness Narrative* Gretchen Garcia PA-C - 09/16/2024 10:45 AM EDT Gretchen Garcia PA-C Department of Orthopaedics Orthopaedics [address] [facility] [address] Dept: [phone] Dept September 16, 2024 CHIEF COMPLAINT: Established Patient and Post Op of the Right Hand. ASSESSMENT: M65.311 Trigger thumb of right hand (primary encounter diagnosis) SUMMARY/PLAN: Patient presents 1 week and 4 days status post right trigger thumb release. She is doing well, having some intermittent 4 out of 10 aching pain mainly at the IP joint. We discussed proper hand washing, no soaking of the operative hand. No heavy lifting, pushing or pulling with the operative hand, encourage gentle motion. We discussed scar massage. Follow up as planned. Exam: Incision site is well approximated without erythema or drainage. Mild but appropriate edema withoutecchymosis. No locking or catching of the digits. Neurologically intact. Imaging: Deferred today Ms. Gabby Guillen was advised as to contrast therapies and/or to take analgesics/anti-inflammatoriesas needed and all contraindications were reviewed. Supporting Information Below: Medications: Current Outpatient Medications Medication Sig carvedilol (COREG) 3.125 mg tablet Take 1 tablet by mouth two times a day with meals. losartan (COZAAR) 100 mg tablet Take 1 tablet by mouth once daily. DULoxetine (CYMBALTA) 30 mg capsule Take 1 capsule by mouth once daily. pantoprazole DR (PROTONIX) 20 mg tablet Take 20 mg by mouth once daily. hydrocortisone 2.5 % cream abdomenal areas as needed REPATHA PUSHTRONEX 420 mg/3.5 mL wearable injector INJECT 3.5 ML BY INJECTION(UNSPECIFIED PARENTERAL ROUTES) ROUTE ONCE EVERY MONTH. ONCE A MONTH (Patient not taking: No sig reported) blood sugar diagnostic (BLOOD GLUCOSE TEST) test strip Test blood sugar(s) 1 times daily. Dx: Type 2 DM - Controlled E11.9 Insulin: No Lancets lancets Test blood sugar(s) 1 times daily. Dx: Type 2 DM - Controlled E11.9 Insulin: No Blood Sugar Diagnostic, Drum (ACCU-CHEK COMPACT TEST) Strp TEST BLOOD SUGAR ONCE DAILY. 250.00 blood-glucose meter, drum-type(ACCU-CHEK COMPACT PLUS CARE KIT) As directed No current facility-administered medications for this visit. Allergies: Amlodipine, Biaxin [Clarithromycin], Metformin, Spironolactone, and Tsvaene-Zna-Efl Reductase Inhibitors This note was partially generated using [employer] voice recognition system, and there may be some incorrect words, spellings, and punctuation that were not noted in checking the note before saving. Gretchen Garcia PA-C * Darlene Florian MA - 09/16/2024 10:15 AM EDT AMB ROOMING INTAKE FLOWSHEET DATA Pain Pain Level: 4 Pain Location: Hand-Right Description: Aching, Sharp Duration Amount of Time: (post op) Frequency: Intermittent Intervention/Comfort measure: Medication Patient is 1 week 4 days post op right trigger thumb release. She is still having some pain. Using Tylenol and ibuprofen as needed. documented in this encounterSy[facility]05-[facility]-2025 NoteHNO ID: [id number] Author: DARLENE FLORIAN MA Service: ? Author Type: Manager Enterprise Content Management Type: Progress Notes Filed: 09/16/2024 10:46 Note Text: AMB ROOMING INTAKE FLOWSHEET DATA Pain Pain Level: 4 Pain Location: Hand-Right Description: Aching, Sharp Duration Amount of Time: (post op) Frequency: Intermittent Intervention/Comfort measure: Medication Patient is 1 week 4 days post op right trigger thumb release. She is still having some pain. Using Tylenol and ibuprofen as needed.[facility]04-03-20[facility] Telephone encounter Note* Telephone Encounter - Darlene Florian MA - 08/15/2024 4:02 PM EDT Surgery has been scheduled as requested. [facility]04-03[facility] Miscellaneous Notes* Telephone Encounter - Darlene Florian MA - 08/15/2024 4:02 PM EDT Surgery has been scheduled as requested. * Telephone Encounter - Darlene Florian MA - 08/15/2024 3:56 PM EDT Surgical request completed. Post op appointments have been scheduled and mailed to the patient. * Telephone Encounter - Darlene Florian MA - 08/15/2024 3:38 PM EDT I called and spoke with the patient. She will be scheduled on 09/05/2024 at [facility]. * Telephone Encounter - Gretchen Garcia PA-C - 08/13/2024 11:24 AM EDT Patient seen in the office today, would like to schedule right trigger thumb release under local anesthesia. Would like to schedule in [facility], can we assist her with scheduling? documented in this encounterSy[facility] Center04-03-2025 Telephone encounter Note * Telephone Encounter - Darlene Florian MA - 08/15/2024 3:56 PM EDT Surgical request completed. Post op appointments have been scheduled and mailed to the patient. [facility]04-[facility] Telephone encounter Note* Telephone Encounter - Darlene Florian MA - 08/15/2024 3:38 PM EDT I called and spoke with the patient. She will be scheduled on 09/05/2024 at [facility]. [facility]04-01-[facility] Telephone encounter Note* Telephone Encounter - Gretchen Garcia PA-C - 08/13/2024 11:24 AM EDT Patient seen in the office today, would like to schedule right trigger thumb release under local anesthesia. Would like to schedule in [facility], can we assist her with scheduling? [facility] Work Phone: [phone]) 237-935004-01-2025 NoteHNO ID: [id number] Author: GRETCHEN GARCIA PA-C Service: ? Author Type: Physician Supervisor [employer] Type: Progress Notes Filed: 08/19/2024 08:06 Note Text: Gretchen Garcia PA-C Department of Orthopaedics Orthopaedics [address] [place], [place] [id number] Dept: [phone] August 13, 2024 CHIEF COMPLAINT: New and Pain of the Left Thumb Ms. Gabby Guillen is a 79 year old female who presents with stiffness in her right thumb which started bothering her about 5 months ago. She reports that she was unable to bend or straighten the thumb. Symptoms started around the holidays, she tells me she was doing a lot of crocheting and sewing projects. Thumb is starting to loosen up and she is able to slightly bend it now but complains of 4 out of 10 aching, burning, stiffness in the digit. Was having some locking and catching when symptoms started. She has had previous trigger fingers in the past which have resolved on their own. She is a diabetic, her blood sugars are well-controlled on Ozempic, she reports a recent 75 pound weight loss. She is also complaining of pain in both of her knees and pain in her groin. She is trying to be more active, has been outside walking, the increased activity exacerbates her pain. She tells me that she has known psoriatic arthritis. She reports having a right knee arthroscopy with medial meniscectomy at the [facility]. ASSESSMENT: M65.311 Trigger thumb of right hand (primary encounter diagnosis) M17.0 Primary osteoarthritis of both knees PLAN: The patient has a right trigger thumb, we discussed her options including a corticosteroid injection and splinting and trigger thumb release. Patient would like to pursue right trigger thumb release under local anesthesia, she is preferring the [place] location. She would also like to be evaluated for her knee pain, we discussed getting some x-rays today for further evaluation, I will put her x-ray results on [facility] for her review. Happy to see her back at the [place] location to discuss treatment options. Will continue to monitor patient for Primary osteoarthritis of both knees Trigger thumb of right hand (primary encounter diagnosis), patient to schedule visit as per follow up discussed. Ms. Gabby Guillen was advised as to contrast therapies and/or to take analgesics/anti-inflammatories as needed and all contraindications were reviewed. OBJECTIVE: Ms. Gabby Guillen is a pleasant 79 year old in no apparent distress. Gen:There were no vitals taken for this visit. nl development, non obese, no deformities ENT: Normocephalic, normal hearing, moist mucosa CV: Pulses:Radial= 2+ and symmetric, capillary refill < 2 secs, no peripheral edema/varicosities Skin: no rash, bruising or lesions. Good turgor. Psych: cooperative and appropriate, alert and oriented x 3, good mood and affect. Musculoskeletal: Right thumb with a tender palpable nodule at the A1 monet site, digit is clicking with flexion and extension but not locking, subjective stiffness at the IP joint. Some degenerative changes at the MCP and CMC joint, minimal tenderness palpation over the basal joint, none painful grind testing. No locking or catching of any of the other digits on the right hand. Sensation is intact to the radial and ulnar nerve distributions Imaging: IMPRESSION: Degenerative changes. No acute abnormality Intern Retail: CAROL Transcribe Date/Time: Aug 17 2024 2:13P Dictated by : BETO NGUYEN MD This examination was interpreted and the report reviewed and electronically signed by: BETO NGUYEN MD on Aug 17 2024 2:15PM EST Results-Findings * * *Final Report* * * DATE OF EXAM: Aug 13 2024 10:18AM ALPES[facility] 5346 - XR HAND 3V PA/LAT/OBL RT / PROCEDURE REASON: M79.641-Pain of right hand * * * * Physician Interpretation * * * * PROCEDURE: Right hand, bilateral knees and pelvis INDICATION: Pain TECHNIQUE: XR HAND 3V PA/LAT/OBL RT, XR KNEE 4V AP/PA/LAT/MERCH KAVON, XR PELVIS 1V AP COMPARISON: Right thumb 07/02/2024, FINDINGS: Right hand: Osteopenia. Mild to moderate osteoarthritic change in all PIP and DIP joints, most prominent in the 3rd DIP joint. No erosions or focal soft tissue swelling. No fracture or dislocation. Bilateral knees: Moderate to advanced medial joint compartment spur formation with mild marginal spur formation, left slightly more advanced than right. No fracture or dislocation. Trace left joint effusion. Osteopenia. Pelvis: Moderate bilateral hip osteoarthrosis. Sacroiliac joints and symphysis pubis are maintained. No fracture or dislocation. Supporting Subjective Information Below: Past Surgical History: PAST SURGICAL HISTORY Procedure Laterality Date ABDOMINAL SURGERY HX ADENOIDECTOMY PRIMARY Adenoidectomy ADENOIDECTOMY SECONDARY AGE 12/> APPENDECTOMY age 30s incidental to [facility] APPENDECTOMY HX BIOPSY BREAST OPEN INCISIONAL Bx of breast, inci (more content not included)...[facility] 08-13-2024 History of Present illness Narrative* Gretchen Garcia PA-C - 08/13/2024 11:14 AM EDT Gretchen Garcia PA-C Department of Orthopaedics Orthopaedics [address] [address] Dept: [phone] August 13, 2024 CHIEF COMPLAINT: New and Pain of the Left Thumb Ms. Gabby Guillen is a 79 year old female who presents with stiffness in her right thumb which started bothering her about 5 months ago. She reports that she was unable to bend or straighten the thumb. Symptoms started around the holidays, she tells me she was doing a lot of crocheting and sewing projects. Thumb is starting to loosen up and she is able to slightly bend it now but complains of 4 out of 10 aching, burning, stiffness in the digit. Was having some locking and catching when symptoms started. She has had previous trigger fingers in the past which have resolved on their own. She is adiabetic, her blood sugars are well-controlled on Ozempic, she reports a recent 75 pound weight loss. She is also complaining of pain in both of her knees and pain in her groin. She is trying to be more active, has been outside walking, the increased activity exacerbates her pain. She tells me that she has known psoriatic arthritis. She reports having a [facility] [facility] [place] ASSESSMENT: M65.311 Trigger thumb of right hand (primary encounter diagnosis) M17.0 Primary osteoarthritis of both knees PLAN: The patient has a right trigger thumb, we discussed her options including a corticosteroid injection and splinting and trigger thumb release. Patient would like to pursue right trigger thumb release under local anesthesia, she is preferring the [place] location. She would also like to be evaluated for her knee pain, we discussed getting some x-rays today for further evaluation, I will put her x-ray results on [facility] for her review. Happy to see her back at the [place] location to discuss treatment options. Will continue to monitor patient for Primary osteoarthritis of both knees Trigger thumb of right hand (primary encounter diagnosis), patient to schedule visit as per follow up discussed. Ms. Gabby Guillen was advised as to contrast therapies and/or to take analgesics/anti-inflammatoriesas needed and all contraindications were reviewed. OBJECTIVE: Ms. Gabby Guillen is a pleasant 79 year old in no apparent distress. Gen:There were no vitals taken for this visit. nl development, non obese, no deformities ENT: Normocephalic, normal hearing, moist mucosa CV: Pulses:Radial= 2+ and symmetric, capillary refill < 2 secs, no peripheral edema/varicosities Skin: no rash, bruising or lesions. Good turgor. Psych: cooperative and appropriate, alert and oriented x 3, good mood and affect. Musculoskeletal: Right thumb with a tender palpable nodule at the A1 monet site, digit is clicking with flexion andextension but not locking, subjective stiffness at the IP joint. Some degenerative changes at the MCP and CMC joint, minimal tenderness palpation over the basal joint, none painful grind testing. No locking or catching of any of the other digits on the right hand. Sensation is intact to the radial and ulnar nerve distributions Imaging: IMPRESSION: Degenerative changes. No acute abnormality Intern Retail: [employer] Transcribe Date/Time: Aug 17 2024 2:13P Dictated by : BETO NGUYEN MD This examination was interpreted and the report reviewed and electronically signed by: BETO NGYUEN MD on Aug 17 2024 2:15PM EST Results-Findings * * *Final Report* * * DATE OF EXAM: Aug 13 2024 10:18AM [facility] 5346 - XR HAND 3V PA/LAT/OBL RT / PROCEDURE REASON: M79.641-Pain of right hand * * * * Physician Interpretation * * * * PROCEDURE: Right hand, bilateral knees and pelvis INDICATION: Pain TECHNIQUE: XR HAND 3V PA/LAT/OBL RT, XR KNEE 4V AP/PA/LAT/MERCH KAVON, XR PELVIS 1V AP COMPARISON: Right thumb 07/02/2024, FINDINGS: Right hand: Osteopenia. Mild to moderate osteoarthritic change in all PIP and DIP joints, most prominent in the 3rd DIP joint. No erosions or focal soft tissue swelling. No fracture or dislocation. Bilateral knees: Moderate to advanced medial joint compartment spur formation with mild marginal spur formation, left slightly more advanced than right. No fracture or dislocation. Trace left joint effusion. Osteopenia. Pelvis: Moderate bilateral hip osteoarthrosis. Sacroiliac joints and symphysis pubis are maintained. No fracture or dislocation. Supporting Subjective Information Below: Past Surgical History: PAST SURGICAL HISTORY Procedure Laterality Date ABDOMINAL SURGERY HX ADENOIDECTOMY PRIMARY <AGE 12 child Adenoidectomy ADENOIDECTOMY SECONDARY AGE 12/> APPENDECTOMY age 30s incidental to SARAH APPENDECTOMY HX BIOPSY BREAST OPEN INCISIONAL Bx of breast, incisional x3 both BREAST SURGERY HX CHOLECYSTECTOMY Cholecystectomy CHOLECYSTECTOMY COLONOSCOPY FLX DX W/COLLJ SPEC WHEN PFRMD 08/2002 Colonoscopy COLONOSCOPY FLX DX W/COLLJ SPEC WHEN PFRMD 2010 Colonoscopy COLONOSCOPY SCREENING 07/07/2021 EGD W/O BRSH SPEC VARICIES INJ 07/07/2021 ESOPHAGOGASTRODUODENOSCOPY TRANSORAL DIAGNOSTIC EGD ESOPHAGOGASTRODUODENOSCOPY TRANSORAL DIAGNOSTIC 08/2002 EGD ESOPHAGOGASTRODUODENOSCOPY TRANSORAL DIAGNOSTIC 04/14/2011 EGD EYE SURGERY HX KNEE LEFT OP SURGERY LUMPECTOMY/RADIOTHERAPY DIAG MAMM/A10 1980s bilat NEUROPLASTY &/TRANSPOS MEDIAN NRV CARPAL TUNNE both PAST SURGICAL HISTORY OF benign leg tumor PAST SURGICAL HISTORY OF multiple brest lumpectomy x3 benign both PAST SURGICAL HISTORY OF facial/mouth surgery PAST SURGICAL HISTORY OF dental surgery PAST SURGICAL HISTORY OF bladder/colon with fistula tumor benign PAST SURGICAL HISTORY OF benign tumor from right lower leg PAST SURGICAL HISTORY OF 04/27/2005 right shoulder scope and debridement SKIN BIOPSY HX TONSILLECTOMY HX TONSILLECTOMY PRIMARY/SECONDARY <AGE 12 chil Tonsillectomy TOTAL ABDOMINAL HYSTERECT W/WO RMVL TUBE OVARY Hysterectomy, SARAH + BSO in stages VAGINAL HYSTERECTOMY Medications: Current Outpatient Medications Medication Sig carvedilol (COREG) 3.125 mg tablet Take 1 tablet by mouth two times a day with meals. losartan (COZAAR) 100 mg tablet Take 1 tablet by mouth once daily. semaglutide (OZEMPIC) 0.25 mg or 0.5 mg (2 mg/3 mL) pen Inject 0.25 mg subcutaneously one time a week. DULoxetine (CYMBALTA) 30 mg capsule Take 1 capsule by mouth once daily. pantoprazole DR (PROTONIX) 20 mg tablet Take 20 mg by mouth once daily. blood sugar diagnostic (BLOOD GLUCOSE TEST) test strip Test blood sugar(s) 1 times daily. Dx: Type 2 DM - Controlled E11.9 Insulin: No Lancets lancets Test blood sugar(s) 1 times daily. Dx: Type 2 DM - Controlled E11.9 Insulin: No hydrocortisone 2.5 % cream abdomenal areas as needed Blood Sugar Diagnostic, Drum (ACCU-CHEK COMPACT TEST) Strp TEST BLOOD SUGAR ONCE DAILY. 250.00 blood-glucose meter, drum-type(ACCU-CHEK COMPACT PLUS CARE KIT) As directed REPATHA PUSHTRONEX 420 mg/3.5 mL wearable injector INJECT 3.5 ML BY INJECTION(UNSPECIFIED PARENTERAL ROUTES) ROUTE ONCE EVERY MONTH. ONCE A MONTH (Patient not taking: No sig reported) No current facility-administered medications for this visit. Allergies: Amlodipine, Biaxin [Clarithromycin], Metformin, Spironolactone, and Hisfehj-Kci-Tsl Reductase Inhibitors ROS: General (negative for fatigue, malaise, weight loss/gain) HEENT (negative for headache, earache, recent vision changes, sinus pain, sore throat) Respiratory (no recent shortness of breath, hemoptysis) CV (negative for chest tightness, palpitations) Musculoskeletal (see HPI) Psych (no depression, anxiety) This note was partially generated using [employer] voice recognition system, and there may be some incorrect words, spellings, and punctuation that were not noted in checking the note before saving. Gretchen Garcia PA-C documented in this encounterSycam[facility] Center04-01-2025 History of Present illness Narrative* Alayna [place] Tech - 08/13/2024 10:20 AM EDT Radiology Service Progress Note PATIENT NAME: Gabby Guillen DATE OF SERVICE: August 13, 2024 TIME: 10:18 AM PATIENT IDENTITY VERIFICATION COMPLETED USING TWO (2) IDENTIFIERS: Name and Date of confirmedby patient verbally. FALL SCREENING: Has the patient had 2 falls in the last year or 1 fall with injury or currently using an Ambulatory Assistive Device (Walker, Cane, Wheelchair, Crutches, etc.)? No PATIENT GENDER DATA: Assigned female at . status: : No status:NO. PATIENT RELEVANT IMPLANT DATA REVIEWED: Not Applicable PATIENT PRESENTS WITH AN IMPLANTABLE OR ATTACHED CLOTHING CONSULTANT: No RADIOLOGY DEPARTMENT: General X-ray: Exam(s) Completed: Upper Extremity X- Ray(s): Hand, right PERIPHERAL IV DATA: Not applicable SIGNED BY: Ricardo Solorio August 13, 2024 10:18 AM * Alayna Montana Tech - 08/13/2024 10:20 AM EDT Radiology Service Progress Note PATIENT NAME: Gabby Guillen DATE OF SERVICE: August 13, 2024 TIME: 11:30 AM PATIENT IDENTITY VERIFICATION COMPLETED USING TWO (2) IDENTIFIERS: Name and Date of confirmedby patient verbally. FALL SCREENING: Has the patient had 2 falls in the last year or 1 fall with injury or currently using an Ambulatory Assistive Device (Walker, Cane, Wheelchair, Crutches, etc.)? No PATIENT GENDER DATA: Assigned female at . status: : No status:NO. PATIENT RELEVANT IMPLANT DATA REVIEWED: Not Applicable PATIENT PRESENTS WITH AN IMPLANTABLE OR ATTACHED CLOTHING CONSULTANT: No RADIOLOGY DEPARTMENT: General X-ray: Exam(s) Completed: Pelvis X-Ray: Pelvis General AP Lower Extremity X-Ray(s): Knee, AP / Lat / Tunne / Merchant Bilateral and Wt. Bearing PERIPHERAL IV DATA: Not applicable SIGNED BY: Ricardo Solorio August 13, 2024 11:30 AM documented in this encounterSycamore Medical Center04-01-2025 NoteHNO ID: [id number] Author: ALAYNA MONTANA Tech Service: Radiology Author Type: Epic Willow Specialist Type: Progress Notes Filed: 08/13/2024 11:30 Note Text: Radiology Service Progress Note PATIENT NAME: Gabby Guillen DATE OF SERVICE: August 13, 2024 TIME: 11:30 AM PATIENT IDENTITY VERIFICATION COMPLETED USING TWO (2) IDENTIFIERS: Name and Date of confirmed by patient verbally. FALL SCREENING: Has the patient had 2 falls in the last year or 1 fall with injury or currently using an Ambulatory Assistive Device (Walker, Cane, Wheelchair, Crutches, etc.)? No PATIENT GENDER DATA: Assigned female at . status: : No status: NO. PATIENT RELEVANT IMPLANT DATA REVIEWED: Not Applicable PATIENT PRESENTS WITH AN IMPLANTABLE OR ATTACHED CLOTHING CONSULTANT: No RADIOLOGY DEPARTMENT: General X-ray: Exam(s) Completed: Pelvis X-Ray: Pelvis General AP Lower Extremity X-Ray(s): Knee, AP / Lat / Tunne / Merchant Bilateral and Wt. Bearing PERIPHERAL IV DATA: Not applicable SIGNED BY: Ricardo Solorio August 13, 2024 11:30 AMCherrington [id number] NoteHNO ID: [id number] Author: ALAYNA MONTANA Tech Service: Radiology Author Type: Epic Willow Specialist Type: Progress Notes Filed: 08/13/2024 10:18 Note Text: Radiology Service Progress Note PATIENT NAME: Gabby Guillen DATE OF SERVICE: August 13, 2024 TIME: 10:18 AM PATIENT IDENTITY VERIFICATION COMPLETED USING TWO (2) IDENTIFIERS: Name and Date of confirmed by patient verbally. FALL SCREENING: Has the patient had 2 falls in the last year or 1 fall with injury or currently using an Ambulatory Assistive Device (Walker, Cane, Wheelchair, Crutches, etc.)? No PATIENT GENDER DATA: Assigned female at . status: : No status: NO. 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, voiced understanding Gabby Fountain LPN July 10, 2024 10:51 AM [facility]02-26-[facility] Miscellaneous Notes* Telephone Encounter - Gabby Fountain LPN - 07/10/2024 10:48 AM EST Medication received from [employer] Ozempic 0.25, 0.5 1 x 3mL received 1 box Called and spoke to patient that medication is available for 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 FALL SCREENING: Has the patient had 2 falls in the last year or 1 fall with injury or currently using an Ambulatory Assistive Device (Walker, Cane, Wheelchair, Crutches, etc.)? No PATIENT GENDER DATA: Assigned female at . status: : No status:NO. PATIENT RELEVANT IMPLANT DATA REVIEWED: Yes PATIENT PRESENTS WITH AN IMPLANTABLE OR ATTACHED CLOTHING CONSULTANT: No RADIOLOGY DEPARTMENT: General X-ray: Exam(s) Completed: Upper Extremity X- Ray(s): Fingers/Thumb, right thumb PERIPHERAL IV DATA: Not applicable SIGNED BY: RT Maggie(Kamini) July 02, 2024 11:21 AM documented in this encounterSycamore Medical Center02-18-2025 NoteHNO ID: [id number] Author: DEEDEE RODRIGUEZ RT(R) Service: ? Author Type: Epic Willow Specialist Type: Progress Notes Filed: 07/02/2024 11:29 Note Text: Radiology Service Progress Note PATIENT NAME: Gabby Guillen DATE OF SERVICE: July 02, 2024 TIME: 11:21 AM PATIENT IDENTITY VERIFICATION COMPLETED USING TWO (2) IDENTIFIERS: Name and Date of confirmed by patient verbally. FALL SCREENING: Has the patient had 2 falls in the last year or 1 fall with injury or currently using an Ambulatory Assistive Device (Walker, Cane, Wheelchair, Crutches, etc.)? No PATIENT GENDER DATA: Assigned female at . status: : No status: NO. PATIENT RELEVANT IMPLANT DATA REVIEWED: Yes PATIENT PRESENTS WITH AN IMPLANTABLE OR ATTACHED CLOTHING CONSULTANT: No RADIOLOGY DEPARTMENT: General X-ray: Exam(s) Completed: Upper Extremity X-Ray(s): Fingers/Thumb, right thumb PERIPHERAL IV DATA: Not applicable SIGNED BY: RT Maggie(R) July 02, 2024 11:21 [facility]02-18-2025 NoteHNO ID: [id number] Author: RODRIGO SALAS MD Service: ? Author Type: Physician Type: Progress Notes Filed: 07/02/2024 18:35 Note Text: Reason for Visit Patient presents with: Follow Up Gabby Guillen is a 77 year old female who presents here today for Above Complaints.. Health Maintenance SHINGRIX VACCINE(1 of 2) DTAP,TDAP,TD(2 - Td or Tdap) ADVANCE DIRECTIVE DISCUSSION DEPRESSION ASSESSMENT HPI He has a past medical history of rheumatoid arthritis, psoriasis with arthritis, fibromyalgia, GERD, hypertension, migraines , hyperlipidemia, diabetes type 2, CAD with moderate disease in the LAD, statin intolerance. Obesity. Weight loss: she has been on ozempic for the past 2 years and lost around 53 pounds, her trajectory has not stopped. Today she notes having abdominal pain HTN: BP controlled today. Checks BP at home. Compliant with medications. Denies any chest pain, palpitations, SOB, swelling in the feet. Careful with diet to avoid salt, trying to eat more fruits and vegetables, exercises regularly She is on losartan potassium and she is concerned with the potassium levels. Was taken off hctz, but the potassium was left on, which we stopped 12/05. Diabetes mellitus: Reviewed labs, her hba1c is 5.3. to cont the glp 1. Not on any other Diabetes Mellitus medication She has plateaued her wt loss and would like her to take medication to maintain the weight loss. Patient has totally lost around of 50 pounds since the last 3 years on the Ozempic. CAD: She has been following up with Dr. Choi. She has moderate LAD disease, it is 60% narrowed in the mid LAD with moderate diffuse disease. She Rheumatoid arthritis and psoriasis: She is on Tremfya, recently got the medication. Fibromyalgia: she does not think the cymbalta is helping her. Grade 1 esophageal varices: downhill varices likely from svc or lung pathology. Gabby had routine EGDs 2021, as surveillance for her chronic GERD. She was due for 1 this year and so she had it done in June and was found to have esophageal varices. She was then referred to Dr. Carlin who admitted her and performed an EGD and colonoscopy Dr. Carlin's EGD revealed that patient has grade 1 mid esophageal varices- He noted that the duodenum 1 and 2 parts were normal, antrum was biopsied as she had z line irregularities. She has fatty liver with out any spleenomegaly per our ultrasound reports. She had elastography done which showed fatty liver which was moderate to severe. 03/01/24 : her weight loss has stabilized after we cut her ozempic down to 0.5 mgs and today we will be cutting it down to 0.25. She is frail, very tired, no energy and a little weak and is open for Physical Therapy for strengthening. She was advised to take vit b12. She is well controlled with the psoriasis on the Tremfya, but is not taking the medication as it has not come to her. Also not taking the Praluent and has not connected with her spiral binder for it. She has peripheral arterial disease which is stable. She is on prilosec for the gi varices and has no issues, hb was normal 4 days ago. She tried to get off the cymbalta but she had some withdrawal symptoms of jitteriness, anxiety, and the constant thoughts and not sleeping well. With her psoriatic arthritis she is controlled on the current medication, she has not joint pain, and her rash has resolved. July 02, 2024: She gained around 4 pounds of weight with the decreased dose of Ozempic. She is doing well over all with her sugars, she checked her sugars and it was a 109. She has a ministroke, is diabetic and has hardening of the cardiac arteries , long segments so stents could not be put. She used to be on Repatha but that was stopped because her lipids were good and she does not need it anymore. No GI bleeding, She is on Trempya for psoriatric arthritis. Sometimes with the weather the symptoms flare up and sometimes she is otherwise well. No problem-specific Assessment AND Plan notes found for this encounter. PAST MEDICAL HISTORY Diagnosis Date Adjustment disorder with depressed mood 03/17/2005 Arthritis Coronary artery disease Dyspareunia 03/17/2005 Esophageal reflux Gastroesophageal reflux Esophageal reflux HLD (hyperlipidemia) HTN (hypertension) Impaired fasting glucose 03/17/2005 Mixed hyperlipidemia Myalgia and myositis, unspecified Other and unspecified hyperlipidemia 03/17/2005 PMH - PAST MEDICAL HISTORY OF TIA's PMH - PAST MEDICAL HISTORY OF skin cancer Rheumatoid arthritis(714.0) Trace cataracts 2007 Uncontrolled type 2 diabetes mellitus with hyperglycemia (HCC) 04/01/2010 Unspecified asthma(493.90) 03/17/2005 Unspecified closed fracture of ankle Unspecified essential hypertension 03/17/2005 PAST SURGICAL HISTORY Procedure Laterality Date ABDOMINAL SURGERY HX ADENOIDECTOMY PRIMARY Adenoidectomy ADENOIDECTOMY SECONDARY AGE 12/> APPENDECTOMY age 30 (more content not included)...[facility] 07-02-2024 History of Present illness Narrative* Rodrigo Salas MD - 07/02/2024 10:13 AM EST Reason for Visit Patient presents with: Follow Up Gabby Guillen is a 77 year old female who presents here today for Above Complaints.. Health Maintenance SHINGRIX VACCINE(1 of 2) DTAP,TDAP,TD(2 - Td or Tdap) ADVANCE DIRECTIVE DISCUSSION DEPRESSION ASSESSMENT HPI He has a past medical history of rheumatoid arthritis, psoriasis with arthritis, fibromyalgia, GERD, hypertension, migraines , hyperlipidemia, diabetes type 2, CAD with moderate disease in the LAD, statin intolerance. Obesity. Weight loss: she has been on ozempic for the past 2 years and lost around 53 pounds, her trajectoryhas not stopped. Today she notes having abdominal pain HTN: BP controlled today. Checks BP at home. Compliant with medications. Denies any chest pain, palpitations, SOB, swelling in the feet. Careful with diet to avoid salt, trying to eat more fruits andvegetables, exercises regularly She is on losartan potassium and she is concerned with the potassium levels. Was taken off hctz, but the potassium was left on, which we stopped 12/05. Diabetes mellitus: Reviewed labs, her hba1c is 5.3. to cont the glp 1. Not on any other Diabetes Mellitus medication She has plateaued her wt loss and would like her to take medication to maintain the weight loss. Patient has totally lost around of 50 pounds since the last 3 years on the Ozempic. CAD: She has been following up with Dr. Choi. She has moderate LAD disease, it is 60% narrowed in the mid LAD with moderate diffuse disease. She Rheumatoid arthritis and psoriasis: She is on Tremfya, recently got the medication. Fibromyalgia: she does not think the cymbalta is helping her. Grade 1 esophageal varices: downhill varices likely from svc or lung pathology. Gabby had routine EGDs 2021, as surveillance for her chronic GERD. She was due for 1 this year and so she had it done inFebruary and was found to have esophageal varices. She was then referred to Dr. Calrin who admittedher and performed an EGD and colonoscopy Dr. Carlin's EGD revealed that patient has grade 1 mid esophageal varices- He noted that the duodenum 1 and 2 parts were normal, antrum was biopsied as she had z line irregularities. She has fatty liver with out any spleenomegaly per our ultrasound reports. She had elastography done which showed fatty liver which was moderate to severe. 03/01/24 : her weight loss has stabilized after we cut her ozempic down to 0.5 mgs and today we will be cutting it down to 0.25. She is frail, very tired, no energy and a little weak and is open for Physical Therapy for strengthening. She was advised to take vit b12. She is well controlled with the psoriasis on the Tremfya, but is not taking the medication as it has not come to her. Also not taking the Praluent and has not connected with her spiral binder for it. She has peripheralarterial disease which is stable. She is on prilosec for the gi varices and has no issues, hb was normal 4 days ago. She tried to getoff the cymbalta but she had some withdrawal symptoms of jitteriness, anxiety, and the constant thoughts and not sleeping well. With her psoriatic arthritis she is controlled on the current medication, she has not joint pain, and her rash has resolved. July 02, 2024: She gained around 4 pounds of weight with the decreased dose of Ozempic. She is doing well over allwith her sugars, she checked her sugars and it was a 109. She has a ministroke, is diabetic and hashardening of the cardiac arteries , long segments so stents could not be put. She used to be on Repatha but that was stopped because her lipids were good and she does not need it anymore. No GI bleeding, She is on Trempya for psoriatric arthritis. Sometimes with the weather the symptoms flare up and sometimes she is otherwise well. No problem-specific Assessment & Plan notes found for this encounter. PAST MEDICAL HISTORY Diagnosis Date Adjustment disorder with depressed mood 03/17/2005 Arthritis Coronary artery disease Dyspareunia 03/17/2005 Esophageal reflux Gastroesophageal reflux Esophageal reflux HLD (hyperlipidemia) HTN (hypertension) Impaired fasting glucose 03/17/2005 Mixed hyperlipidemia Myalgia and myositis, unspecified Other and unspecified hyperlipidemia 03/17/2005 PMH - PAST MEDICAL HISTORY OF TIA's PMH - PAST MEDICAL HISTORY OF skin cancer Rheumatoid arthritis(714.0) Trace cataracts 2008 Uncontrolled type 2 diabetes mellitus with hyperglycemia (HCC) 04/01/2010 Unspecified asthma(493.90) 03/17/2005 Unspecified closed fracture of ankle Unspecified essential hypertension 03/17/2005 PAST SURGICAL HISTORY Procedure Laterality Date ABDOMINAL SURGERY HX ADENOIDECTOMY PRIMARY <AGE 12 child Adenoidectomy ADENOIDECTOMY SECONDARY AGE 12/> APPENDECTOMY age 30s incidental to SARAH APPENDECTOMY HX BIOPSY BREAST OPEN INCISIONAL Bx of breast, incisional x3 both BREAST SURGERY HX CHOLECYSTECTOMY Cholecystectomy CHOLECYSTECTOMY COLONOSCOPY FLX DX W/COLLJ SPEC WHEN PFRMD 08/2002 Colonoscopy COLONOSCOPY FLX DX W/COLLJ SPEC WHEN PFRMD 2010 Colonoscopy COLONOSCOPY SCREENING 07/07/2021 EGD W/O BRSH SPEC VARICIES INJ 07/07/2021 ESOPHAGOGASTRODUODENOSCOPY TRANSORAL DIAGNOSTIC EGD ESOPHAGOGASTRODUODENOSCOPY TRANSORAL DIAGNOSTIC 08/2002 EGD ESOPHAGOGASTRODUODENOSCOPY TRANSORAL DIAGNOSTIC 04/14/2011 EGD EYE SURGERY HX KNEE LEFT OP SURGERY LUMPECTOMY/RADIOTHERAPY DIAG MAMM/A10 1980s bilat NEUROPLASTY &/TRANSPOS MEDIAN NRV CARPAL TUNNE both PAST SURGICAL HISTORY OF benign leg tumor PAST SURGICAL HISTORY OF multiple brest lumpectomy x3 benign both PAST SURGICAL HISTORY OF facial/mouth surgery PAST SURGICAL HISTORY OF dental surgery PAST SURGICAL HISTORY OF bladder/colon with fistula tumor benign PAST SURGICAL HISTORY OF benign tumor from right lower leg PAST SURGICAL HISTORY OF 04/27/2005 right shoulder scope and debridement SKIN BIOPSY HX TONSILLECTOMY HX TONSILLECTOMY PRIMARY/SECONDARY <AGE 12 chil Tonsillectomy TOTAL ABDOMINAL HYSTERECT W/WO RMVL TUBE OVARY Hysterectomy, SARAH + BSO in stages VAGINAL HYSTERECTOMY FAMILY HISTORY Problem Relation Age of Onset Hypertension Mother Breast Cancer Mother Diabetes Father Heart Father Hypertension Father Hypertension Sister Hypertension Brother 3 brothers all with hypertension diabetes all have this Thyroid Daughter Hypertension Son Diabetes Son Cancer Daughter thyroid Diabetes Sister x 2 both have diabetes Cancer Brother All 3 Brothers Hypertension Other Several Family Member Social History Tobacco Use Smoking status: Never Smokeless tobacco: Never Vaping Use Vaping status: Never Used Substance Use Topics Alcohol use: Not Currently Drug use: Never Past medical history, appointments, medications, allergies reviewed. Pertinent Lab/Diagnostic Studies are reviewed and discussed today Current Outpatient Medications: carvedilol (COREG) 3.125 mg tablet losartan (COZAAR) 100 mg tablet semaglutide (OZEMPIC) 0.25 mg or 0.5 mg (2 mg/3 mL) pen DULoxetine (CYMBALTA) [address] (PROTONIX) 20 mg tablet blood sugar diagnostic (BLOOD GLUCOSE TEST) test strip Lancets lancets hydrocortisone 2.5 % cream Blood Sugar Diagnostic, Drum (ACCU-CHEK COMPACT TEST) Strp blood-glucose meter, drum-type(ACCU-CHEK COMPACT PLUS CARE KIT) REPATHA PUSHTRONEX 420 mg/3.5 mL wearable injector Review of Systems CONSTITUTIONAL: No fevers, chills night sweats, unintended weight loss CARDIOVASCULAR: No chest pain, dyspnea, palpitations, orthopnea, PND, ankle edema. PULM: No dyspnea, unexplained cough. GI: No dysphagia/odynophagia, problematic reflux, constipation, diarrhea, changes in stool habits, hematochezia, melena. : No new urinary complaints, including dysuria, gross hematuria or pyuria. NEURO: No new balance problems, peripheral weakness/paresthesias or numbness of concern. Physical Exam BP 128/76 Pulse 64 Resp 16 Wt 63.1 kg (139 lb 3.2 oz) BMI 27.19 kg/m General appearance: Well appearing, alert, in no acute distress, well nourished. Skin: Skin color, texture, turgor normal, no suspicious rashes or lesions Head: Normocephalic, no masses, lesions, tenderness or abnormalities Eyes: Anicteric sclera. Pupils are equally round and reactive to light. Extraocular movements are intact. Lungs: Lungs clear to auscultation. No wheezing, rhonchi, rales Heart: RRR without murmur, gallop, or rubs. Extremities: No deformities, edema, skin discoloration, clubbing or cyanosis. Good capillary refill. ASSESSMENT/PLAN: 1. Type 2 diabetes mellitus with diabetic peripheral angiopathy without gangrene, without long-termcurrent use of insulin (HCC) - ICD9: 250.70, 443.81, ICD10: E11.51 (primary diagnosis) To stay at the lowest dose of the ozempic 2. Idiopathic esophageal varices without bleeding (HCC) - ICD9: 456.1, ICD10: I85.00 Stable no concerns 3. Arthropathic psoriasis, unspecified (HCC) - ICD9: 696.0, ICD10: L40.50 Cont the current medication. 4. Arthritis of carpometacarpal (CMC) joint of left thumb - ICD9: 716.94, ICD10: M18.12 - CONSULT TO ORTHOPAEDICS Rodrigo Salas MD documented in this [facility] NoteHNO ID: [id number] Author: REINALDO CHOI MD Service: ? Author Type: Physician Type: Progress Notes Filed: 06/19/2024 12:05 Note Text: Reinaldo Choi MD Interventional Cardiology [address] [place], [place] [id number] Chief Complaint Patient presents with: New Patient Evaluation: Hypertension HISTORY OF PRESENT ILLNESS: Ms. Guillen is a 78 year old female seen in my office for follow-up with prior history of moderate coronary artery disease involve the left anterior descending artery also history of hyperlipidemia doing well from medical point of view Recurrent episode of chest pain usually at rest not with activity consistent with noncardiac chest pain Cardiac Risk Factors age (male over 45, female over 55), hyperlipidemia, hypertension, family history of CAD PAST MEDICAL HISTORY Diagnosis Date Adjustment disorder with depressed mood 03/17/2005 Arthritis Coronary artery disease Dyspareunia 03/17/2005 Esophageal reflux Gastroesophageal reflux Esophageal reflux HLD (hyperlipidemia) HTN (hypertension) Impaired fasting glucose 03/17/2005 Mixed hyperlipidemia Myalgia and myositis, unspecified Other and unspecified hyperlipidemia 03/17/2005 PMH - PAST MEDICAL HISTORY OF TIA's PMH - PAST MEDICAL HISTORY OF skin cancer Rheumatoid arthritis(714.0) Trace cataracts 2007 Uncontrolled type 2 diabetes mellitus with hyperglycemia (HCC) 04/01/2010 Unspecified asthma(493.90) 03/17/2005 Unspecified closed fracture of ankle Unspecified essential hypertension 03/17/2005 PAST SURGICAL HISTORY Procedure Laterality Date ABDOMINAL SURGERY HX ADENOIDECTOMY PRIMARY Adenoidectomy ADENOIDECTOMY SECONDARY AGE 12/> APPENDECTOMY age 30s incidental to SARAH APPENDECTOMY HX BIOPSY BREAST OPEN INCISIONAL Bx of breast, incisional x3 both BREAST SURGERY HX CHOLECYSTECTOMY Cholecystectomy CHOLECYSTECTOMY COLONOSCOPY FLX DX W/COLLJ SPEC WHEN PFRMD 08/2002 Colonoscopy COLONOSCOPY FLX DX W/COLLJ SPEC WHEN PFRMD 2010 Colonoscopy COLONOSCOPY SCREENING 07/07/2021 EGD W/O BRSH SPEC VARICIES INJ 07/07/2021 ESOPHAGOGASTRODUODENOSCOPY TRANSORAL DIAGNOSTIC EGD ESOPHAGOGASTRODUODENOSCOPY TRANSORAL DIAGNOSTIC 08/2002 EGD ESOPHAGOGASTRODUODENOSCOPY TRANSORAL DIAGNOSTIC 04/14/2011 EGD EYE SURGERY HX KNEE LEFT OP SURGERY LUMPECTOMY/RADIOTHERAPY DIAG MAMM/A10 1980s bilat NEUROPLASTY AND/TRANSPOS MEDIAN NRV CARPAL TUNNE both PAST SURGICAL HISTORY OF benign leg tumor PAST SURGICAL HISTORY OF multiple brest lumpectomy x3 benign both PAST SURGICAL HISTORY OF facial/mouth surgery PAST SURGICAL HISTORY OF dental surgery PAST SURGICAL HISTORY OF bladder/colon with fistula tumor benign PAST SURGICAL HISTORY OF benign tumor from right lower leg PAST SURGICAL HISTORY OF 04/27/2005 right shoulder scope and debridement SKIN BIOPSY HX TONSILLECTOMY HX TONSILLECTOMY PRIMARY/SECONDARY Tonsillectomy TOTAL ABDOMINAL HYSTERECT W/WO RMVL TUBE OVARY Hysterectomy, SARAH + BSO in stages VAGINAL HYSTERECTOMY FAMILY HISTORY Problem Relation Age of Onset Hypertension Mother Breast Cancer Mother Diabetes Father Heart Father Hypertension Father Hypertension Sister Hypertension Brother 3 brothers all with hypertension diabetes all have this Thyroid Daughter Hypertension Son Diabetes Son Cancer Daughter thyroid Diabetes Sister x 2 both have diabetes Cancer Brother All 3 Brothers Hypertension Other Several Family Member Social History Tobacco Use Smoking status: Never Smokeless tobacco: Never Vaping Use Vaping status: Never Used Substance Use Topics Alcohol use: Not Currently Drug use: Never ALLERGIES Allergen Reactions Amlodipine Swelling Biaxin [Clarithromy* Rash Metformin Diarrhea ER formulation caused symptoms at 1 tablet per day Spironolactone Other: See Comments lightheaded and dizzy Hjbrrvg-Otw-Cpi Red* Intolerance myalgia and diarrhea Medications: Current Outpatient Medications Medication Sig Dispense Refill semaglutide (OZEMPIC) 0.25 mg or 0.5 mg (2 mg/3 mL) pen Inject 0.25 mg subcutaneously one time a week. 3 mL 2 DULoxetine (CYMBALTA) 30 mg capsule Take 1 capsule by mouth once daily. [address] (PROTONIX) 20 mg tablet Take 20 mg by mouth once daily. Lancets lancets Test blood sugar(s) 1 times daily. Dx: Type 2 DM - Controlled E11.9 Insulin: No 100 Each 11 hydrocortisone 2.5 % cream abdomenal areas as needed 60 g 6 Blood Sugar Diagnostic, Drum (ACCU-CHEK COMPACT TEST) Strp TEST BLOOD SUGAR ONCE DAILY. 250.00 (Patient taking differently: TEST BLOOD SUGAR ONCE DAILY. 250.00 Takes once a month or so) 51 Strip 11 blood-glucose meter, drum-type(ACCU-CHEK COMPACT PLUS CARE KIT) As directed 1 0 carvedilol (COREG) 3.125 mg tablet Take 1 tablet by mouth two times a day with meals. 180 tablet 3 losartan (COZAAR) 100 mg tablet Take 1 tablet by (more content not included)... [facility]02-05-2025 History of Present illness Narrative* Reinaldo Choi MD - 06/19/2024 12:03 PM EST Images from the original note were not included. Reinaldo Choi MD Interventional Cardiology [address] [place] [address] Chief Complaint Patient presents with: New Patient Evaluation: Hypertension HISTORY OF PRESENT ILLNESS: Ms. Guillen is a 78 year old female seen in my office for follow-up with prior history of moderate coronary artery disease involve the left anterior descending artery also history of hyperlipidemia doing well from medical point of view Recurrent episode of chest pain usually at rest not with activity consistent with noncardiac chest pain Cardiac Risk Factors age (male over 45, female over 55), hyperlipidemia, hypertension, family history of CAD PAST MEDICAL HISTORY Diagnosis Date Adjustment disorder with depressed mood 03/17/2005 Arthritis Coronary artery disease Dyspareunia 03/17/2005 Esophageal reflux Gastroesophageal reflux Esophageal reflux HLD (hyperlipidemia) HTN (hypertension) Impaired fasting glucose 03/17/2005 Mixed hyperlipidemia Myalgia and myositis, unspecified Other and unspecified hyperlipidemia 03/17/2005 PMH - PAST MEDICAL HISTORY OF TIA's PMH - PAST MEDICAL HISTORY OF skin cancer Rheumatoid arthritis(714.0) Trace cataracts 2007 Uncontrolled type 2 diabetes mellitus with hyperglycemia (HCC) 04/01/2010 Unspecified asthma(493.90) 03/17/2005 Unspecified closed fracture of ankle Unspecified essential hypertension 03/17/2005 PAST SURGICAL HISTORY Procedure Laterality Date ABDOMINAL SURGERY HX ADENOIDECTOMY PRIMARY <AGE 12 child Adenoidectomy ADENOIDECTOMY SECONDARY AGE 12/> APPENDECTOMY age 30s incidental to SARAH APPENDECTOMY HX BIOPSY BREAST OPEN INCISIONAL Bx of breast, incisional x3 both BREAST SURGERY HX CHOLECYSTECTOMY Cholecystectomy CHOLECYSTECTOMY COLONOSCOPY FLX DX W/COLLJ SPEC WHEN PFRMD 08/2002 Colonoscopy COLONOSCOPY FLX DX W/COLLJ SPEC WHEN PFRMD 2010 Colonoscopy COLONOSCOPY SCREENING 07/07/2021 EGD W/O BRSH SPEC VARICIES INJ 07/07/2021 ESOPHAGOGASTRODUODENOSCOPY TRANSORAL DIAGNOSTIC EGD ESOPHAGOGASTRODUODENOSCOPY TRANSORAL DIAGNOSTIC 08/2002 EGD ESOPHAGOGASTRODUODENOSCOPY TRANSORAL DIAGNOSTIC 04/14/2011 EGD EYE SURGERY HX KNEE LEFT OP SURGERY LUMPECTOMY/RADIOTHERAPY DIAG MAMM/A10 1980s bilat NEUROPLASTY &/TRANSPOS MEDIAN NRV CARPAL TUNNE both PAST SURGICAL HISTORY OF benign leg tumor PAST SURGICAL HISTORY OF multiple brest lumpectomy x3 benign both PAST SURGICAL HISTORY OF facial/mouth surgery PAST SURGICAL HISTORY OF dental surgery PAST SURGICAL HISTORY OF bladder/colon with fistula tumor benign PAST SURGICAL HISTORY OF benign tumor from right lower leg PAST SURGICAL HISTORY OF 04/27/2005 right shoulder scope and debridement SKIN BIOPSY HX TONSILLECTOMY HX TONSILLECTOMY PRIMARY/SECONDARY <AGE 12 chil Tonsillectomy TOTAL ABDOMINAL HYSTERECT W/WO RMVL TUBE OVARY Hysterectomy, SARAH + BSO in stages VAGINAL HYSTERECTOMY FAMILY HISTORY Problem Relation Age of Onset Hypertension Mother Breast Cancer Mother Diabetes Father Heart Father Hypertension Father Hypertension Sister Hypertension Brother 3 brothers all with hypertension diabetes all have this Thyroid Daughter Hypertension Son Diabetes Son Cancer Daughter thyroid Diabetes Sister x 2 both have diabetes Cancer Brother All 3 Brothers Hypertension Other Several Family Member Social History Tobacco Use Smoking status: Never Smokeless tobacco: Never Vaping Use Vaping status: Never Used Substance Use Topics Alcohol use: Not Currently Drug use: Never ALLERGIES Allergen Reactions Amlodipine Swelling Biaxin [Clarithromy* Rash Metformin Diarrhea ER formulation caused symptoms at 1 tablet per day Spironolactone Other: See Comments lightheaded and dizzy Xxfkrqk-Lgw-Tvs Red* Intolerance myalgia and diarrhea Medications: Current Outpatient Medications Medication Sig Dispense Refill semaglutide (OZEMPIC) 0.25 mg or 0.5 mg (2 mg/3 mL) pen Inject 0.25 mg subcutaneously one time a week. 3 mL 2 DULoxetine (CYMBALTA) 30 mg capsule Take 1 capsule by mouth once daily. [address] (PROTONIX) 20 mg tablet Take 20 mg by mouth once daily. Lancets lancets Test blood sugar(s) 1 times daily. Dx: Type 2 DM - Controlled E11.9 Insulin: No 100Each 11 hydrocortisone 2.5 % cream abdomenal areas as needed 60 g 6 Blood Sugar Diagnostic, Drum (ACCU-CHEK COMPACT TEST) Strp TEST BLOOD SUGAR ONCE DAILY. 250.00 (Patient taking differently: TEST BLOOD SUGAR ONCE DAILY. 250.00 Takes once a month or so) 51 Strip 11 blood-glucose meter, drum-type(ACCU-CHEK COMPACT PLUS CARE KIT) As directed 1 0 carvedilol (COREG) 3.125 mg tablet Take 1 tablet by mouth two times a day with meals. 180 tablet 3 losartan (COZAAR) 100 mg tablet Take 1 tablet by mouth once daily. 90 tablet 3 REPATHA PUSHTRONEX 420 mg/3.5 mL wearable injector INJECT 3.5 ML BY INJECTION(UNSPECIFIED PARENTERAL ROUTES) ROUTE ONCE EVERY MONTH. ONCE A MONTH 10.5 mL 5 blood sugar diagnostic (BLOOD GLUCOSE TEST) test strip Test blood sugar(s) 1 times daily. Dx: Type 2 DM - Controlled E11.9 Insulin: No (Patient not taking: Reported on 03/01/2024) 50 Strip 11 No current facility-administered medications for this visit. Review of Systems Constitutional: Negative for chills, diaphoresis, fever, malaise/fatigue and weight loss. HENT: Negative for congestion, ear discharge, ear pain, hearing loss, nosebleeds, sinus pain, sore throat and tinnitus. Eyes: Negative for blurred vision, double vision, photophobia, pain, discharge and redness. Respiratory: Negative for cough, hemoptysis, sputum production, shortness of breath, wheezing and stridor. Cardiovascular: Negative for chest pain, palpitations, orthopnea, claudication, leg swelling and PND. Gastrointestinal: Negative for abdominal pain, blood in stool, constipation, diarrhea, heartburn, melena, nausea and vomiting. Genitourinary: Negative for dysuria, flank pain, frequency, hematuria and urgency. Musculoskeletal: Negative for back pain, falls, joint pain, myalgias and neck pain. Skin: Negative for itching and rash. Neurological: Negative for dizziness, tingling, tremors, sensory change, speech change, focal weakness, seizures, loss of consciousness, weakness and headaches. Endo/Heme/Allergies: Negative for environmental allergies and polydipsia. Does not bruise/bleed easily. Psychiatric/Behavioral: Negative for depression, hallucinations, memory loss, substance abuse and suicidal ideas. The patient is not nervous/anxious and does not have insomnia. Physical Examination: Vitals:BP 130/73 Pulse 65 Resp 16 Ht 5' 0 (1.52m) Wt 135 lb (61.2kg) SpO2 97% BMI 26.37 kg/(m^2). BP w/Orthostatic Vitals Date and Time Orthostatic BP Orthostatic Pulse BP Pulse BP Position BP Site BP Cuff Size 06/19/24 1017 -- -- 130/73 65 Sitting Left Arm Regular Adult Peak Flow Date and Time PF Resp 06/19/24 1017 -- 16 Last 2 Encounter Wt Readings: Date: Wt: 06/19/2024 135 lb (61.2 kg) 03/01/2024 136 lb 3.2 oz (61.8 kg) Physical Exam Constitutional: General: She is not in acute distress. Appearance: She is not diaphoretic. HENT: Head: Normocephalic and atraumatic. Right Ear: External ear normal. Left Ear: External ear normal. Nose: Nose normal. Mouth/Throat: Pharynx: Oropharynx is clear. Eyes: General: Right eye: No discharge. Left eye: No discharge. Conjunctiva/sclera: Conjunctivae normal. Pupils: Pupils are equal, round, and reactive to light. Cardiovascular: Rate and Rhythm: Normal rate and regular rhythm. Heart sounds: Normal heart sounds, S1 normal and S2 normal. No murmur heard. No friction rub. No gallop. No S3 or S4 sounds. Pulmonary: Effort: Pulmonary effort is normal. No respiratory distress. Breath sounds: Normal breath sounds. No wheezing or rales. Chest: Chest wall: No tenderness. Abdominal: General: Abdomen is flat. Musculoskeletal: General: Normal range of motion. Cervical back: Normal range of motion and neck supple. Skin: General: Skin is warm and dry. Neurological: Mental Status: She is alert and oriented to person, place, and time. Psychiatric: Mood and Affect: Mood normal. Thought Content: Thought content normal. Pertinent Labs: CBC: Hemoglobin (g/dL) Date Value 01/29/2024 13.4 03/23/2021 13.7 Hematocrit (%) Date Value 01/29/2024 39.9 03/23/2021 41.6 WBC (k/uL) Date Value 01/29/2024 6.41 03/23/2021 6.57 Platelet Count (k/uL) Date Value 01/29/2024 258 03/23/2021 286 BMP: Glucose (mg/dL) Date Value 11/28/2023 90 03/23/2021 124 Potassium (mmol/L) Date Value 11/28/2023 4.3 03/23/2021 4.0 Sodium (mmol/L) Date Value 11/28/2023 140 03/23/2021 137 Chloride (mmol/L) Date Value 11/28/2023 104 03/23/2021 97 CO2 (mmol/L) Date Value 11/28/2023 26 03/23/2021 29 Creatinine (mg/dL) Date Value 11/28/2023 1.01 03/23/2021 0.92 BUN (mg/dL) Date Value 11/28/2023 17 03/23/2021 18 Anion Gap (mmol/L) Date Value 11/28/2023 10 03/23/2021 11 Calcium (mg/dL) Date Value 03/23/2021 9.8 Calcium, Total (mg/dL) Date Value 11/28/2023 10.0 INR: Lipid Profile: Cholesterol, Total Date Value Ref Range Status 11/28/2023 175 <200 mg/dL Final Comment: <200 mg/dL, Desirable 200-239 mg/dL, Borderline high >239 mg/dL, High HDL Cholesterol Date Value Ref Range Status 11/28/2023 61 >39 mg/dL Final Comment: 40-59 mg/dL, Acceptable >59 mg/dL, High: Negative risk factor for coronary heart disease <40 mg/dL, Low: Positive risk factor for coronary heart disease LDL Cholesterol Date Value Ref Range Status 11/28/2023 99 <100 mg/dL Final Comment: <100 mg/dL, Optimal 100-129 mg/dL, Near optimal/above optimal 130-159 mg/dL, Borderline high 160-189 mg/dL, High >189 mg/dL, Very high Secondary prevention optimal LDL Cholesterol levels are recommended to be < 70 mg/dL Triglyceride Date Value Ref Range Status 11/28/2023 74 <150 mg/dL Final Comment: <150 mg/dL, Normal 150-199 mg/dL, Borderline high 200-499 mg/dL, High >499 mg/dL, Very high Hemoglobin A1C: No results found for: HGBA1C TSH: No results found for: TSHREFL Prior Cardiac Testing none Assessment and Plan: 78 years old female patient with moderate LAD disease and atypical chest pain ASSESSMENT/PLAN: 1. Essential hypertension - ICD9: 401.9, ICD10: I10 (primary diagnosis) - Controlled - Continue current medications - Recommend home blood pressure monitoring, to bring results to next visit - Encouraged sodium restriction, DASH or Mediterranean diet - Recommend regular aerobic exercise - ECG COMPLETE - CARVEDILOL 3.125 MG TABLET 2. Coronary artery disease involving [place] coronary artery of [place] heart without angina pectoris- ICD9: 414.01, ICD10: I25.10 Stable coronary artery disease continue medical therapy Reinaldo Choi MD Follow up planning: One year Electronically signed by Reinaldo Choi MD on June 19, 2024, 12:04 PM The above note was partially created using a dictation recognition software. A reasonable attempt has been made to correct any errors. documented in this encounter[facility]24 NoteHNO ID: [id number] Author: BOWEN RODRIGUEZ PT Service: ? Author Type: Physical Therapist Type: Progress Notes Filed: 03/22/2024 09:14 Note Text: Episode Visit Count: 1 Therapist That Will Accept/Oversee The Plan Of Care: Bowen Rodriguez Start of Care Date: 03/21/24 Onset Date: 05/15/23 Plan of Care Certification Date: 03/21/24 Next Certification Due Date: 05/21/24 Patient Identified by Name and Date of : Yes REHABILITATION AND SPORTS THERAPY PHYSICAL THERAPY EVALUATION PLAN OF CARE: Assessment: Gabby Guillen presents with diagnosis of generalized weakness and frality that interferes with standing, walking, bending, heavy exertion, lifting . The patient presents with impairments in ADL's, overall function, and strength. PROMIS? (Patient-Reported Outcomes Measurement Information System) scores were reviewed and identified as within normal limits. Prognosis for therapy is Fair due to: clinical presentation, multiple co- morbidities, chronic nature of impairments, limited tolerance to activity . The patient will benefit from skilled therapy services to meet the goals established for this plan of care as noted below. Classification Pain Mechanism Classification: Neuropathic Low Back Pain Classification: Symptom Modulation Goals for Episode of Care: established 03/21/24 [place] in home exercise program. Patient will decrease pain rating by 2 points to meet minimal clinical important difference for numeric pain rating scale. Patient will demonstrate increase in BLE strength to 4 to 4+/5 during manual muscle testing in order to improve function for basic self-care tasks, home management tasks, and light functional tasks. Patient will improve 30 second sit to stand to demonstrate improvement in functional lower extremity strength. Time Frame for Goals and Treatment : 05/22/24 Planned Interventions, Frequency, and Duration: Current Frequency: 1x/week (patient and both would like to make it 1x/month vs suggested 1x/week. if patient is compliant with HEP she should still see improved strength) Duration: 4 weeks Total Number of Visits Planned: 4 Planned Treatment Interventions: Therapeutic exercise (17339), Neuromuscular re-education (23921), Manual therapy (10657), Therapeutic activities (28881), Self-penitentiary management (22930), Patient/Family/Caregiver Education, Body Mechanics Training PLAN FOR NEXT VISIT: IN Patient demonstrates good understanding of plan of care and treatment. The above goals and plan of care were discussed and agreed upon by patient/family. SUBJECTIVE: Patient here today for noted weakness and frality by PCP during annual wellness visit. Patient notes chronic fibromyalgia pain that limits her daily function, B knee pain, and chronic LBP. Patient does not have updated BMD scans, last one was from 2008 and showed normal to boarderline levels of osteopenia. Functional Limitations: standing, walking, bending, heavy exertion, lifting Home Environment Patient Lives With: Spouse Intake Information: Prescription present Pain: Pain Pain Level: 6 Pain Location: Low Back/Lumbar Spine- Midline Description: Sharp, Stabbing Frequency: With movement PROMIS Scales 03/19/2024 Higher is Better Phys Func - Score 40 (mild dysfunction) Phys Func - Percentile 16 Self-Eff Symptom - Score 48 (Average) Self-Eff Symptom - Percentile 42 T-scores: mean of general population = 50. 5 points is clinically meaningfully difference Percentiles provide an indication of how the patient's score ranks in relation to the general population. Higher percentile rankings indicate better function/quality of life. 50th percentile is the average of the general population and indicates half of respondents had a worse score. OBJECTIVE MEASURES WITH LEVEL OF FUNCTION: Lumbar Spine AROM Lumbar Flexion: Normal Lumbar Extension: Moderate limitation LE Strength R LE Strength: 3+ to 4-/5 grossly L LE Strength: 3+ to 4-/5 grossly Special Tests - Hip and Spine Hip and Spine Special Tests: SLR Test SLR Test: Right Positive Functional Performance Test Results 30 Second Chair Stand Test: 12 reps Education: Education Learning/educational needs: Health promotion, Home exercise program, Plan of Care, Changes in Plan of Care, Posture, Body Mechanics TREATMENT: PT Treatment Interventions: Therapeutic Exercise Evaluation Therapeutic Exercise: 1: *SKC 3x30 sec/side 2: *SLR 3x10/side 3: *SL hip abduction 3x10/side 4: *Clamshells 3x10/side 5: *Standing hip abduction at countertop 3x10/side 6: *Calf raises at countertop 3x10/side 7: *Standing marching at countertop 3x10/side Skilled Intervention: Patient was educated in proper exercise technique and purpose for exercises. Skilled judgment was used in selection of appropriate interventions. Provided written instruction for home exercise program to facilitate proper performance and comp (more content not included)...[facility] 03-22-2024 History of Present illness Narrative* Bowen Rodriguez, PT - 03/22/2024 9:10 AM EST Images from the original note were not included. Episode Visit Count: 1 Therapist That Will Accept/Oversee The Plan Of Care: Bowen Rodriguez Start of Care Date: 03/21/24 Onset Date: 05/15/23 Plan of Care Certification Date: 03/21/24 Next Certification Due Date: 05/21/24 Patient Identified by Name and Date of : Yes REHABILITATION AND SPORTS THERAPY PHYSICAL THERAPY EVALUATION PLAN OF CARE: Assessment: Gabby Guillen presents with diagnosis of generalized weakness and frality that interferes with standing, walking, bending, heavy exertion, lifting . The patient presents with impairments in ADL's, overall function, and strength. PROMIS (Patient-Reported Outcomes Measurement Information System) scores were reviewed and identified as within normal limits. Prognosis for therapy is Fair due to: clinical presentation, multiple co- morbidities, chronic nature of impairments, limited tolerance to activity . The patient will benefit from skilled therapy services to meet the goals established for this plan of care as noted below. Classification Pain Mechanism Classification: Neuropathic Low Back Pain Classification: Symptom Modulation Goals for Episode of Care: established 03/21/24 [place] in home exercise program. Patient will decrease pain rating by 2 points to meet minimal clinical important difference for numeric pain rating scale. Patient will demonstrate increase in BLE strength to 4 to 4+/5 during manual muscle testing in order to improve function for basic self-care tasks, home management tasks, and light functional tasks. Patient will improve 30 second sit to stand to demonstrate improvement in functional lower extremity strength. Time Frame for Goals and Treatment : 05/22/24 Planned Interventions, Frequency, and Duration: Current Frequency: 1x/week (patient and both would like to make it 1x/month vs suggested 1x/week. if patient is compliant with HEP she should still see improved strength) Duration: 4 weeks Total Number of Visits Planned: 4 Planned Treatment Interventions: Therapeutic exercise (08992), Neuromuscular re- education (92155), Manual therapy (90225), Therapeutic activities (38946), Self- penitentiary management (04185), Patient/Family/Caregiver Education, Body Mechanics Training PLAN FOR NEXT VISIT: IN Patient demonstrates good understanding of plan of care and treatment. The above goals and plan of care were discussed and agreed upon by patient/family. SUBJECTIVE: Patient here today for noted weakness and frality by PCP during annual wellness visit. Patient notes chronic fibromyalgia pain that limits her daily function, B knee pain, and chronic LBP. Patient does not have updated BMD scans, last one was from 2008 and showed normal to boarderline levels of osteopenia. Functional Limitations: standing, walking, bending, heavy exertion, lifting Home Environment Patient Lives With: Spouse Intake Information: Prescription present Pain: Pain Pain Level: 6 Pain Location: Low Back/Lumbar Spine- Midline Description: Sharp, Stabbing Frequency: With movement PROMIS Scales 03/19/2024 Higher is Better Phys Func - Score 40 (mild dysfunction) Phys Func - Percentile 16 Self-Eff Symptom - Score 48 (Average) Self-Eff Symptom - Percentile 42 T-scores: mean of general population = 50. 5 points is clinically meaningfully difference Percentiles provide an indication of how the patient's score ranks in relation to the general population. Higher percentile rankings indicate better function/quality of life. 50th percentile is the average of the general population and indicates half of respondents had a worse score. OBJECTIVE MEASURES WITH LEVEL OF FUNCTION: Lumbar Spine AROM Lumbar Flexion: Normal Lumbar Extension: Moderate limitation LE Strength R LE Strength: 3+ to 4-/5 grossly L LE Strength: 3+ to 4-/5 grossly Special Tests - Hip and Spine Hip and Spine Special Tests: SLR Test SLR Test: Right Positive Functional Performance Test Results 30 Second Chair Stand Test: 12 reps Education: Education Learning/educational needs: Health promotion, Home exercise program, Plan of Care, Changes in Plan of Care, Posture, Body Mechanics TREATMENT: PT Treatment Interventions: Therapeutic Exercise Evaluation Therapeutic Exercise: 1: *SKC 3x30 sec/side 2: *SLR 3x10/side 3: *SL hip abduction 3x10/side 4: *Clamshells 3x10/side 5: *Standing hip abduction at countertop 3x10/side 6: *Calf raises at countertop 3x10/side 7: *Standing marching at countertop 3x10/side Skilled Intervention: Patient was educated in proper exercise technique and purpose for exercises. Skilled judgment was used in selection of appropriate interventions. Provided written instruction for home exercise program to facilitate proper performance and compliance. Correct performance of therapeutic exercises was facilitated with verbal, visual, and tactile cuing. Billing * Evaluation Moderate Complexity: 1 Unit Therapeutic Exercise Treatment Minutes: 15 Skilled Treatment Time Minutes (timed and untimed codes): 33 Total Session Time (minutes): 33 Session Start Time : 1002 Session Stop Time : 1035 Bowen Rodriguez PT * Bowen Rodriguez PT - 03/21/2024 10:36 AM EST Program_ID:[id number] Access Code: [email or web address] URL: [email or web address] Date: 03-21-2024 Prepared By: Bowen Rodriguez Program Notes Exercises - Hooklying Single Knee to Chest Stretch - 3 x daily - 7 x weekly - 1 sets - 3 reps - Hooklying Single Knee to Chest Stretch - 3 x daily - 7 x weekly - 1 sets - 3 reps - Supine Straight Leg Raises - 1 x daily - 7 x weekly - 3 sets - 10 reps - Sidelying Hip Abduction - 1 x daily - 7 x weekly - 3 sets - 10 reps - Clamshell - 1 x daily - 7 x weekly - 3 sets - 10 reps - Standing Hip Abduction with Counter Support - 1 x daily - 7 x weekly - 3 sets - 10 reps - Heel Raises with Unilateral Counter Support - 1 x daily - 7 x weekly - 3 sets - 10 reps - Standing March with Counter Support - 1 x daily - 7 x weekly - 3 sets - 10 reps documented in [facility]Sy[facility]24 Telephone encounter Note * Telephone Encounter - Sheri Vidal RN - 03/18/2024 1:17 PM EST Patient phones requesting refills as follows: Requested Prescriptions Pending Prescriptions Disp Refills REPATHA PUSHTRONEX 420 mg/3.5 mL wearable injector [Pharmacy Med Name: REPATHA 420 MG/3.5ML PUSHTRONX] 10.5 mL Sig: INJECT 3.5 ML BY INJECTION(UNSPECIFIED PARENTERAL ROUTES) ROUTE ONCE EVERY MONTH. ONCE A MONTH Please review and advise. Sheri Vidal RN [facility]11-04-2024 Miscellaneous Notes* Telephone Encounter - Sheri Vidal RN - 03/18/2024 1:17 PM EST Patient phones requesting refills as follows: Requested Prescriptions Pending Prescriptions Disp Refills REPATHA PUSHTRONEX 420 mg/3.5 mL wearable injector [Pharmacy Med Name: REPATHA 420 MG/3.5ML PUSHTRONX] 10.5 mL Sig: INJECT 3.5 ML BY INJECTION(UNSPECIFIED PARENTERAL ROUTES) ROUTE ONCE EVERY MONTH. ONCE A MONTH Please review and advise. Sheri Vidal RN documented in this encounterSycam[facility] Center10-24-2024 Telephone encounter Note * Telephone Encounter - Gabby Fountain LPN - 03/07/2024 1:55 PM EDT Faxed [phone] Gabby Fountain LPN March 07, 2024 1:55 PM [facility] Miscellaneous Notes* Telephone Encounter - Gabby Fountain LPN - 03/07/2024 1:55 PM EDT Faxed [phone] Gabby Fountain LPN March 07, 2024 1:55 PM * Telephone Encounter - Deborah Fernandez APRN.CNP - 03/07/2024 1:39 PM EDT This has been signed. Please fax as requested. Thank you Deborah Fernandez APRN.CNP * Telephone Encounter - Gabby Fountain LPN - 03/07/2024 1:29 PM EDT Isabela Nordisk Paatient assistance paperwork received, for next year medications. Paperwork on Dr Nikia Fountain LPN March 07, 2024 1:30 PM documented in this encounterSycam[facility] Center10-24-2024 Telephone encounter Note * Telephone Encounter - Deborah Fernandez APRN.CNP - 03/07/2024 1:39 PM EDT This has been signed. Please fax as requested. Thank you Deborah Fernandez APRN.CNP [facility]-24-[facility] Telephone encounter Note* Telephone Encounter - Gabby Fountain LPN - 03/07/2024 1:29 PM EDT Isabela Nordisk Paatient assistance paperwork received, for next year medications. Paperwork on Dr Salas desshannon Fountain LPN March 07, 2024 1:30 PM [facility]10-18-[facility] Instructions* Patient Instructions* Rodrigo Salas MD - 03/01/2024 9:51 AM EDT Please ask Physical Therapy to show you strength training exercises and make sure you do that everyday. Try not to lose more weight. We have decreased the Ozempic to 0.25 mgs weekly Stay at the 30 mg dose of cymbalta Please call the psoriasis and heart doctors, you need to get on the medication they are giving. documented in this encounterSycamore Medical Center10-18-2024 History of Present illness Narrative* Rodrigo Salas MD - 03/01/2024 9:00 AM EDT Images from the original note were not included. Gabby Guillen is a 78 year old female here for a Medicare wellness visit. Medicare Health Risk Assessment General Health Good Exercise: Minutes/Day 20 min Exercise: Days/Week 3 days a week Alcohol: Daily Use Monthly or less Alcohol: Drinks/Day 1 or 2 Alcohol: 6 or more drinks Never Feel off balance No Concerns: Teeth/Dentures No Concerns: Sexual function No Troubled by feelings None of the above Frequency: Eating healthy diet Several days ADLs requiring help None of the above Safety precautions in home/vehicle Yes Smoke, vape, chews tobacco No Difficulty hearing Yes, I wear a hearing aid Difficulty seeing No Current Providers Specialists: I have reviewed specialist-related care of the patient in the medical record. Medical/Family history review Reviewed and updated problem list, medical/surgical/family/social history, medications, and allergies. Opioid use review Opioid Medications (last 90 days) No data to display Anxiety/Depression screening PHQ-9 Score: 4 (Minimal Depression) Recommendation: no further intervention at this time Cognitive screening 5 Mini Cog Score: 5 Cognitive screening reviewed and No further action needed (score 3-5). Functional Observation Was the patient's Timed Up & Go test unsteady or >= 12 seconds? No Advance Care Planning Surrogate decision maker and/or advance care plan documented Measurements BP 126/72 (BP Site: Left Arm) Pulse 67 Ht 152.4 cm (5') Wt 61.8 kg (136 lb 3.2 oz) SpO2 96% BMI 26.60 kg/m Vision Screening: Follows with optometry/ophthalmology Assessment/Plan Medicare annual wellness visit, subsequent (Z00.00) - Counseled on healthy diet and regular exercise - Fall avoidance information provided - Personalized prevention plan provided Reason for Visit Patient presents with: Derek Gabby Guillen is a 77 year old female who presents here today for Above Complaints.. Health Maintenance SHINGRIX VACCINE(1 of 2) DTAP,TDAP,TD(2 - Td or Tdap) ADVANCE DIRECTIVE DISCUSSION DEPRESSION ASSESSMENT HPI He has a past medical history of rheumatoid arthritis, psoriasis with arthritis, fibromyalgia, GERD, hypertension, migraines , hyperlipidemia, diabetes type 2, CAD with moderate disease in the LAD, statin intolerance. Obesity. Weight loss: she has been on ozempic for the past 2 years and lost around 53 pounds, her trajectoryhas not stopped. Today she notes having abdominal pain HTN: BP controlled today. Checks BP at home. Compliant with medications. Denies any chest pain, palpitations, SOB, swelling in the feet. Careful with diet to avoid salt, trying to eat more fruits andvegetables, exercises regularly She is on losartan potassium and she is concerned with the potassium levels. Was taken off hctz, but the potassium was left on, which we stopped 12/05. Diabetes mellitus: Reviewed labs, her hba1c is 5.3. to cont the glp 1. Not on any other Diabetes Mellitus medication She has plateaued her wt loss and would like her to take medication to maintain the weight loss. Patient has totally lost around of 50 pounds since the last 3 years on the Ozempic. CAD: She has been following up with Dr. Choi. She has moderate LAD disease, it is 60% narrowed in the mid LAD with moderate diffuse disease. She Rheumatoid arthritis and psoriasis: She is on Tremfya, recently got the medication. Fibromyalgia: she does not think the cymbalta is helping her. Grade 1 esophageal varices: downhill varices likely from svc or lung pathology. Gabby had routine EGDs 2021, as surveillance for her chronic GERD. She was due for 1 this year and so she had it done inFebruary and was found to have esophageal varices. She was then referred to Dr. Carlin who admittedher and performed an EGD and colonoscopy Dr. Carlin's EGD revealed that patient has grade 1 mid esophageal varices- He noted that the duodenum 1 and 2 parts were normal, antrum was biopsied as she had z line irregularities. She has fatty liver with out any spleenomegaly per our ultrasound reports. She had elastography done which showed fatty liver which was moderate to severe. 03/01/24 : her weight loss has stabilized after we cut her ozempic down to 0.5 mgs and today we will be cutting it down to 0.25. She is frail, very tired, no energy and a little weak and is open for Physical Therapy for strengthening. She was advised to take vit b12. She is well controlled with the psoriasis on the Tremfya, but is not taking the medication as it has not come to her. Also not taking the Praluent and has not connected with her spiral binder for it. She has peripheralarterial disease which is stable. She is on prilosec for the gi varices and has no issues, hb was normal 4 days ago. She tried to getoff the cymbalta but she had some withdrawal symptoms of jitteriness, anxiety, and the constant thoughts and not sleeping well. With her psoriatic arthritis she is controlled on the current medication, she has not joint pain, and her rash has resolved. No problem-specific Assessment & Plan notes found for this encounter. PAST MEDICAL HISTORY Diagnosis Date Adjustment disorder with depressed mood 03/17/2005 Arthritis Coronary artery disease Dyspareunia 03/17/2005 Esophageal reflux Gastroesophageal reflux Esophageal reflux Impaired fasting glucose 03/17/2005 Mixed hyperlipidemia Myalgia and myositis, unspecified Other and unspecified hyperlipidemia 03/17/2005 PMH - PAST MEDICAL HISTORY OF TIA's PMH - PAST MEDICAL HISTORY OF skin cancer Rheumatoid arthritis(714.0) Trace cataracts 2007 Uncontrolled type 2 diabetes mellitus with hyperglycemia (HCC) 04/01/2010 Unspecified asthma(493.90) 03/17/2005 Unspecified closed fracture of ankle Unspecified essential hypertension 03/17/2005 PAST SURGICAL HISTORY Procedure Laterality Date ABDOMINAL SURGERY HX ADENOIDECTOMY PRIMARY <AGE 12 child Adenoidectomy ADENOIDECTOMY SECONDARY AGE 12/> APPENDECTOMY age 30s incidental to SARAH APPENDECTOMY HX BIOPSY BREAST OPEN INCISIONAL Bx of breast, incisional x3 both BREAST SURGERY HX CHOLECYSTECTOMY Cholecystectomy CHOLECYSTECTOMY COLONOSCOPY FLX DX W/COLLJ SPEC WHEN PFRMD 08/2002 Colonoscopy COLONOSCOPY FLX DX W/COLLJ SPEC WHEN PFRMD 2010 Colonoscopy COLONOSCOPY SCREENING 07/07/2021 EGD W/O BRSH SPEC VARICIES INJ 07/07/2021 ESOPHAGOGASTRODUODENOSCOPY TRANSORAL DIAGNOSTIC EGD ESOPHAGOGASTRODUODENOSCOPY TRANSORAL DIAGNOSTIC 08/2002 EGD ESOPHAGOGASTRODUODENOSCOPY TRANSORAL DIAGNOSTIC 04/14/2011 EGD EYE SURGERY HX KNEE LEFT OP SURGERY LUMPECTOMY/RADIOTHERAPY DIAG MAMM/A10 1980s bilat NEUROPLASTY &/TRANSPOS MEDIAN NRV CARPAL TUNNE both PAST SURGICAL HISTORY OF benign leg tumor PAST SURGICAL HISTORY OF multiple brest lumpectomy x3 benign both PAST SURGICAL HISTORY OF facial/mouth surgery PAST SURGICAL HISTORY OF dental surgery PAST SURGICAL HISTORY OF bladder/colon with fistula tumor benign PAST SURGICAL HISTORY OF benign tumor from right lower leg PAST SURGICAL HISTORY OF 04/27/2005 right shoulder scope and debridement SKIN BIOPSY HX TONSILLECTOMY HX TONSILLECTOMY PRIMARY/SECONDARY <AGE 12 chil Tonsillectomy TOTAL ABDOMINAL HYSTERECT W/WO RMVL TUBE OVARY Hysterectomy, SARAH + BSO in stages VAGINAL HYSTERECTOMY FAMILY HISTORY Problem Relation Age of Onset Hypertension Mother Breast Cancer Mother Diabetes Father Heart Father Hypertension Father Hypertension Sister Hypertension Brother 3 brothers all with hypertension diabetes all have this Thyroid Daughter Hypertension Son Diabetes Son Cancer Daughter thyroid Diabetes Sister x 2 both have diabetes Cancer Brother All 3 Brothers Hypertension Other Several Family Member Social History Tobacco Use Smoking status: Never Smokeless tobacco: Never Vaping Use Vaping status: Never Used Substance Use Topics Alcohol use: Not Currently Drug use: Never Past medical history, appointments, medications, allergies reviewed. Pertinent Lab/Diagnostic Studies are reviewed and discussed today Current Outpatient Medications: DULoxetine (CYMBALTA) 30 mg capsule carvedilol (COREG) 3.125 mg tablet fluticasone (FLONASE) 50 mcg/actuation nasal spray losartan (COZAAR) [address] (PROTONIX) 20 mg tablet Lancets lancets hydrocortisone 2.5 % cream Blood Sugar Diagnostic, Drum (ACCU-CHEK COMPACT TEST) Strp blood-glucose meter, drum-type(ACCU-CHEK COMPACT PLUS CARE KIT) semaglutide (OZEMPIC) 0.25 mg or 0.5 mg (2 mg/3 mL) pen REPATHA PUSHTRONEX 420 mg/3.5 mL wearable injector alirocumab (PRALUENT PEN) 75 mg/mL pen blood sugar diagnostic (BLOOD GLUCOSE TEST) test strip TREMFYA 100 mg/mL AutoInjector Review of Systems CONSTITUTIONAL: No fevers, chills night sweats, unintended weight loss CARDIOVASCULAR: No chest pain, dyspnea, palpitations, orthopnea, PND, ankle edema. PULM: No dyspnea, unexplained cough. GI: No dysphagia/odynophagia, problematic reflux, constipation, diarrhea, changes in stool habits, hematochezia, melena. : No new urinary complaints, including dysuria, gross hematuria or pyuria. NEURO: No new balance problems, peripheral weakness/paresthesias or numbness of concern. Physical Exam BP 126/72 (BP Site: Left Arm) Pulse 67 Ht 152.4 cm (5') Wt 61.8 kg (136 lb 3.2 oz) SpO2 96% BMI 26.60 kg/m General appearance: Well appearing, alert, in no acute distress, well nourished. Skin: Skin color, texture, turgor normal, no suspicious rashes or lesions Head: Normocephalic, no masses, lesions, tenderness or abnormalities Eyes: Anicteric sclera. Pupils are equally round and reactive to light. Extraocular movements are intact. Lungs: Lungs clear to auscultation. No wheezing, rhonchi, rales Heart: RRR without murmur, gallop, or rubs. Extremities: No deformities, edema, skin discoloration, clubbing or cyanosis. Good capillary refill. ASSESSMENT/PLAN: 1. Medicare annual wellness visit, subsequent - ICD9: V70.0, ICD10: Z00.00 (primary diagnosis) - Counseled on healthy diet and regular exercise 2. Idiopathic esophageal varices without bleeding (HCC) - ICD9: 456.1, ICD10: I85.00 On omeprazole to continue, hb is normal range. 3. Arthropathic psoriasis, unspecified ([facility]) - ICD9: 696.0, ICD10: L40.50 Hba1c no symptoms 4. PAD (peripheral artery disease) (HCC) - ICD9: 443.9, ICD10: I73.9 Stable, no concerns when she walks or exercises currently 5. Diabetes mellitus type 2 (HCC) - ICD9: 250.00, ICD10: E11.9 She is prediabetic at this time and we are changing her dose to..25- SEMAGLUTIDE 0.25 MG OR 0.5 MG (2 MG/3 ML) SUBCUTANEOUS PEN INJECTOR - ALBUMIN/CREATININE RATIO, URINE 6. Screening for diabetic retinopathy - ICD9: V80.2, ICD10: Z13.5 7. Weakness of lower extremity, unspecified laterality - ICD9: 729.89, ICD10: R29.898 - CONSULT TO PHYSICAL THERAPY 8. Weight loss - ICD9: 783.21, ICD10: R63.4 - CONSULT TO PHYSICAL THERAPY 9. Frailty syndrome in geriatric patient - ICD9: 797, ICD10: R54 - CONSULT TO PHYSICAL THERAPY Rodrigo Salas MD documented in this encounterSycam[facility] Center10-11-2024 Telephone encounter Note * Telephone Encounter - Gabby Fountain LPN - 02/23/2024 10:47 AM EDT Received Ozempic on 02/23/24, called and spoke to patient, will draft roller picker medication at office visit on Monday03/01/24 Gabby Fountain LPN February 23, 2024 10:51 AM [facility] Miscellaneous Notes* Telephone Encounter - Gabby Fountain LPN - 02/23/2024 10:47 AM EDT Received Ozempic on 02/23/24, called and spoke to patient, will draft roller picker medication at office visit on Monday03/01/24 Gabby Fountain LPN February 23, 2024 10:51 AM documented in this encounterSycamore [facility] Center10-07-2024 Telephone encounter Note * Telephone Encounter - Gabby Fountain LPN - 02/19/2024 10:44 AM EDT Patient tried tapering medication did not work for her, resuming original dose. Gabby Fountain LPN February 19, 2024 10:44 AM [facility] Miscellaneous Notes* Telephone Encounter - Gabby Fountain LPN - 02/19/2024 10:44 AM EDT Patient tried tapering medication did not work for her, resuming original dose. Gabby Fountain LPN February 19, 2024 10:44 AM * Telephone Encounter - Rodrigo Salas MD - 02/19/2024 10:17 AM EDT Please ask patient if she is tapering the cymbalta as per our discussion. If she is, then it has to be 30 mgs every other day for 6 weeks and then to stop it. Regards, Rodrigo Salas MD * Telephone Encounter - Janet Choudhary MA - 02/19/2024 9:49 AM EDT Pharmacy states that sig and quantity does not match on Duloxetine. Please review and advise. Janet Choudhary MA documented in this encounterSycamore Medical Center10-07-2024 Telephone encounter Note * Telephone Encounter - Rodrigo Salas MD - 02/19/2024 10:17 AM EDT Please ask patient if she is tapering the cymbalta as per our discussion. If she is, then it has to be 30 mgs every other day for 6 weeks and then to stop it. Regards, Rodrigo Salas MD [facility] Telephone encounter Note* Telephone Encounter - Janet Choudhary MA - 02/19/2024 9:49 AM EDT Pharmacy states that sig and quantity does not match on Duloxetine. Please review and advise. Janet Choudhary MA [facility]-03-[facility] Telephone encounter Note* Telephone Encounter - Maria A Thayer MA - 02/15/2024 3:13 PM EDT My chart note and detailed voicemail to inform. Maria A Thayer MA [facility]10-03-2024 Miscellaneous Notes* Telephone Encounter - Maria A Thayer MA - 02/15/2024 3:13 PM EDT My chart note and detailed voicemail to inform. Maria A Thayer MA * Telephone Encounter - Maria A Thayer MA - 02/15/2024 2:50 PM EDT ----- Message from Reinaldo Choi MD sent at 02/15/2024 2:33 PM EDT ----- Normal stress Please inform the patient murphy documented in this encounterSycamore Medical Center10-03-2024 Telephone encounter Note * Telephone Encounter - Maria A Thayer MA - 02/15/2024 2:50 PM EDT ----- Message from Reinaldo Choi MD sent at 02/15/2024 2:33 PM EDT ----- Normal stress Please inform the patient murphy [facility]-01-[facility] Telephone encounter Note* Telephone Encounter - Janet Choudhary MA - 02/13/2024 7:47 AM EDT Faxed as requested and copy sent to scanning. Janet Choudhary MA [facility]10-01-2024 Miscellaneous Notes* Telephone Encounter - Janet Choudhary MA - 02/13/2024 7:47 AM EDT Faxed as requested and copy sent to scanning. Janet Choudhary MA * Telephone Encounter - Janet Choudhary MA - 02/12/2024 10:47 AM EDT Patient assistance forms dropped off by patient for [employer]. Form completed and given to Dr. Salas for review and signature. Once signed, please fax to [employer] and send copy to scanning. Janet Choudhary MA documented in this encounterSycamore Medical Center09-30-2024 Telephone encounter Note * Telephone Encounter - Zhanna Stinson LPN - 02/12/2024 4:15 PM EDT Confirmed with pharmacy that there are no refills available. [facility] Miscellaneous Notes* Telephone Encounter - Zhanna Stinson LPN - 02/12/2024 4:15 PM EDT Confirmed with pharmacy that there are no refills available. * Telephone Encounter - Yana Lomeli - 02/12/2024 1:33 PM EDT Patient said she tried to refill this rx, but was told there are no refills. Said she takes it daily. * Telephone Encounter - Yana Lomeli - 02/12/2024 1:32 PM EDT Prescription Refill Information The patient has been identified by name and date of : Yes Caregiver verified no other encounters exist for this prescription request: Yes Caregiver confirmed with patient/requestor that no other refills are due, in the near future, with this provider at this time: Yes The last office visit in the department: 11/28/23 Does the patient have a future office visit with this provider/department: Yes Requested Prescriptions Pending Prescriptions Disp Refills DULoxetine (CYMBALTA) 30 mg capsule 90 capsule 1 Sig: Take 1 capsule by mouth once daily. Please take it every other day for 6 weeks and stop Yana Jimenez February 12, 2024 1:32 PM documented in this encounterSycamore Medical Center09-30-2024 Telephone encounter Note * Telephone Encounter - Yana Lomeli - 02/12/2024 1:33 PM EDT Patient said she tried to refill this rx, but was told there are no refills. Said she takes it daily. [facility]09-30-2024 Telephone encounter Note* Telephone Encounter - Yana Lomeli - 02/12/2024 1:32 PM EDT Prescription Refill Information The patient has been identified by name and date of : Yes Caregiver verified no other encounters exist for this prescription request: Yes Caregiver confirmed with patient/requestor that no other refills are due, in the near future, with this provider at this time: Yes The last office visit in the department: 11/28/23 Does the patient have a future office visit with this provider/department: Yes Requested Prescriptions Pending Prescriptions Disp Refills DULoxetine (CYMBALTA) 30 mg capsule 90 capsule 1 Sig: Take 1 capsule by mouth once daily. Please take it every other day for 6 weeks and stop Yana Jimenez February 12, 2024 1:32 PM [facility]09-30-2024 Telephone encounter Note* Telephone Encounter - Janet Choudhary MA - 02/12/2024 10:47 AM EDT Patient assistance forms dropped off by patient for Ozempic. Form completed and given to Dr. Salas for review and signature. Once signed, please fax to [employer] and send copy to scanning. Janet Choudhary MA [facility]09-19-2024 Telephone encounter Note* Telephone Encounter - Darcie Cavazos - 02/01/2024 10:42 AM EDT Cardiac/Medication clearance recieved. Clearance scanned in - Placed in Dr. Murphy dai to be reviewed. Darcie Cavazos February 01, 2024 10:43 AM [facility]09-19-2024 Miscellaneous Notes* Telephone Encounter - Darcie Cavazos - 02/01/2024 10:42 AM EDT Cardiac/Medication clearance recieved. Clearance scanned in - Placed in Dr. Murphy dai to be reviewed. Darcie Cavazos February 01, 2024 10:43 AM documented in this encounterSycam[facility] Center09-[facility]24 History of Present illness Narrative* Fawn De La Cruz, RT(R) - 01/29/2024 8:30 AM EDT RADIOLOGY SERVICE PROGRESS NOTE SERVICE DATE: 01/29/2024 SERVICE TIME: 08:30 AM PATIENT IDENTITY VERIFICATION COMPLETED USING TWO (2) STANDARD IDENTIFIERS: Name and Date of confirmed by patient verbally FALL SCREENING: Has the patient had 2 falls in the last year or 1 fall with injury or currently using an Ambulatory Assistive Device (Walker, Cane, Wheelchair, Crutches, etc.)? No PATIENT GENDER DATA: .female : No ALLERGIES: Reviewed and unchanged MEDICATIONS REVIEWED: No PATIENT RELEVANT IMPLANT DATA REVIEWED: Not Applicable PATIENT PRESENTS WITH AN IMPLANTABLE OR ATTACHED CLOTHING CONSULTANT: n/a CREATININE: Creatinine Date Value Ref Range Status 11/28/2023 1.01 (H) 0.58 - 0.96 mg/dL Final 03/27/2023 0.90 0.58 - 0.96 mg/dL Final 12/09/2022 1.02 (H) 0.58 - 0.96 mg/dL Final Estimated Glomerular Filtration Rate Date Value Ref Range Status 11/28/2023 57 (L) >=60 mL/min/1.73m Final Comment: Estimated Glomerular Filtration Rate (eGFR) is calculated using the 2020 CKD-EPI creatinine equation. This equation utilizes serum creatinine, sex, and age as parameters. The creatinine assay has traceable calibration to isotope dilution- mass spectrometry. Refer to KDIGO guidelines for clinical interpretation. In patients with unstable renal function, e.g. those with acute kidney injury, the eGFRmay not accurately reflect actual GFR. eGFR- Date Value Ref Range Status 03/23/2021 >60 Final P.O.C.T. RESULTS: N/A January 29, [address] PERFORMED: No IV SITE: Ambulatory: A peripheral IV was started in the Left antecubital site with a Angio cath: 22gauge. POST EXAM PIV STATUS: Discontinued PROCEDURE TYPE: NM Stress: 13.2 mCi [id number] was administered IV for Rest Imaging at 08:40 by Fawn De La Cruz. 32.8 mCi [id number] was administered IV for Stress Imaging at 10:15 by Fawn De La Cruz. PATIENT DISCHARGED TO: Ambulatory patient, left NM department area. A Diagnostic radioactive procedure has taken place, with no further precautions necessary other than routine body substance precautions. More information regarding radiation safety can be found usingthis link: [email or web address] SIGNATURE: Fawn De La Cruz RT(R) PATIENT NAME: Gabby Guillen DATE: January 29, 2024 TIME: 11:30 AM PAGER/CONTACT #: documented in this encounterSycam[facility] Center08-[facility]24 Telephone encounter Note * Telephone Encounter - Keshawn Feng LPN - 01/02/2024 8:44 AM EDT Talha Zamora Approval received and reviewed. Approval good from 05/15/2023 through 05/14/2024. Pharmacy advise. Keshawn Fegn LPN [facility]08-20-2024 Miscellaneous Notes* Telephone Encounter - Keshawn Minaya LPN - 01/02/2024 8:44 AM EDT Talha Zamora Approval received and reviewed. Approval good from 05/15/2023 through 05/14/2024. Pharmacy advise. Keshawn Feng LPN * Telephone Encounter - Keshawn Feng LPN - 01/02/2024 8:41 AM EDT PA sent via [employer] adelina. [place]: BTCTOLLIE. Keshawn Feng LPN documented in this encounterSycamore [facility] Center08-20-2024 Telephone encounter Note * Telephone Encounter - Keshawn Feng LPN - 01/02/2024 8:41 AM EDT PA sent via [employer] adelina. [place]: BTCTANMSamantha Keshawn Feng LPN [facility]07-16-2024 Instructions* Patient Instructions* Rodrigo Salas MD - 11/28/2023 9:29 AM EDT We stopped the potassium Cut down the ozempic to 0.5 mgs weekly Taper and stop the cymbalta, 30 mgs every other day for the next 6 weeks and stop. If at any point you begin to realize that it was actually helping you and want to be back on the medication , restart. Disc with dr Robles about the need for the the liver medication Please try to get half hour of exercise at least daily We need to stop the weight loss and keep the weight stable documented in this encounterSycamore [facility] Center07-[facility]-2024 Telephone encounter Note * Telephone Encounter - Janet Choudhary MA - 11/28/2023 8:53 AM EDT Repatha was sent to [facility] on 11/20/23. Pt requesting be sent to [facility] in [place]. Pharmacy updated, please file if agreeable. Janet Choudhary MA [facility]07-16-2024 Miscellaneous Notes* Telephone Encounter - Janet Choudhary MA - 11/28/2023 8:53 AM EDT Repatha was sent to [facility] on 11/20/23. Pt requesting be sent to [facility] in [place]. Pharmacy updated, please file if agreeable. Janet Choudhary MA documented in this encounterSycamore Medical Center07-16-2024 History of Present illness Narrative* Rodrigo Salas MD - 11/28/2023 8:49 AM EDT Reason for Visit Patient presents with: 6 mo follow up Gabby Guillen is a 77 year old female who presents here today for Above Complaints.. Health Maintenance SHINGRIX VACCINE(1 of 2) DTAP,TDAP,TD(2 - Td or Tdap) ADVANCE DIRECTIVE DISCUSSION DEPRESSION ASSESSMENT HPI He has a past medical history of rheumatoid arthritis, psoriasis, fibromyalgia, GERD, hypertension,migraines , hyperlipidemia, diabetes type 2, CAD with moderate disease in the LAD, statin intolerance. Obesity. Weight loss: she has been on ozempic for the past 2 years and lost around 53 pounds, her trajectoryhas not stopped. Today she notes having abdominal pain HTN: BP controlled today. Checks BP at home. Compliant with medications. Denies any chest pain, palpitations, SOB, swelling in the feet. Careful with diet to avoid salt, trying to eat more fruits andvegetables, exercises regularly She is on losartan potassium and she is concerned with the potassium levels. Was taken off hctz, but the potassium was left on, which we stopped 12/05. Diabetes mellitus: Reviewed labs, her hba1c is 5.3. to cont the glp 1. Not on any other Diabetes Mellitus medication She has plateaued her wt loss and would like her to take medication to maintain the weight loss. Patient has totally lost around of 50 pounds since the last 3 years on the Ozempic. CAD: She has been following up with Dr. Choi. She has moderate LAD disease, it is 60% narrowed in the mid LAD with moderate diffuse disease. Rheumatoid arthritis and psoriasis: She is on Tremfya, recently got the medication. Fibromyalgia: she does not think the cymbalta is helping her. Grade 1 esophageal varices: downhill varices likely from svc or lung pathology. Gabby had routine EGDs 2021, as surveillance for her chronic GERD. She was due for 1 this year and so she had it done inFebruary and was found to have esophageal varices. She was then referred to Dr. Carlin who admittedher and performed an EGD and colonoscopy Dr. Carlin's EGD revealed that patient has grade 1 mid esophageal varices- He noted that the duodenum 1 and 2 parts were normal, antrum was biopsied as she had z line irregularities. She has fatty liver with out any spleenomegaly per our ultrasound reports. She had elastography done which, No problem-specific Assessment & Plan notes found for this encounter. PAST MEDICAL HISTORY Diagnosis Date Adjustment disorder with depressed mood 03/17/2005 Arthritis Coronary artery disease Dyspareunia 03/17/2005 Esophageal reflux Gastroesophageal reflux Esophageal reflux Impaired fasting glucose 03/17/2005 Mixed hyperlipidemia Myalgia and myositis, unspecified Other and unspecified hyperlipidemia 03/17/2005 PMH - PAST MEDICAL HISTORY OF TIA's PMH - PAST MEDICAL HISTORY OF skin cancer Rheumatoid arthritis(714.0) Trace cataracts 2007 Uncontrolled type 2 diabetes mellitus with hyperglycemia (HCC) 04/01/2010 Unspecified asthma(493.90) 03/17/2005 Unspecified closed fracture of ankle Unspecified essential hypertension 03/17/2005 PAST SURGICAL HISTORY Procedure Laterality Date ABDOMINAL SURGERY HX ADENOIDECTOMY PRIMARY <AGE 12 child Adenoidectomy ADENOIDECTOMY SECONDARY AGE 12/> APPENDECTOMY age 30s incidental to [facility] APPENDECTOMY HX BIOPSY BREAST OPEN INCISIONAL Bx of breast, incisional x3 both BREAST SURGERY HX CHOLECYSTECTOMY Cholecystectomy CHOLECYSTECTOMY COLONOSCOPY FLX DX W/COLLJ SPEC WHEN PFRMD 08/2002 Colonoscopy COLONOSCOPY FLX DX W/COLLJ SPEC WHEN PFRMD 2010 Colonoscopy COLONOSCOPY SCREENING 07/07/2021 EGD W/O RUST SPEC VARICIES INJ 07/07/2021 ESOPHAGOGASTRODUODENOSCOPY TRANSORAL DIAGNOSTIC EGD ESOPHAGOGASTRODUODENOSCOPY TRANSORAL DIAGNOSTIC 08/2002 EGD ESOPHAGOGASTRODUODENOSCOPY TRANSORAL DIAGNOSTIC 04/14/2011 EGD EYE SURGERY HX KNEE LEFT OP SURGERY LUMPECTOMY/RADIOTHERAPY DIAG MAMM/A10 1980s bilat NEUROPLASTY &/TRANSPOS MEDIAN NRV CARPAL TUNNE both PAST SURGICAL HISTORY OF benign leg tumor PAST SURGICAL HISTORY OF multiple brest lumpectomy x3 benign both PAST SURGICAL HISTORY OF facial/mouth surgery PAST SURGICAL HISTORY OF dental surgery PAST SURGICAL HISTORY OF bladder/colon with fistula tumor benign PAST SURGICAL HISTORY OF benign tumor from right lower leg PAST SURGICAL HISTORY OF 04/27/2005 right shoulder scope and debridement SKIN BIOPSY HX TONSILLECTOMY HX TONSILLECTOMY PRIMARY/SECONDARY <AGE 12 chil Tonsillectomy TOTAL ABDOMINAL HYSTERECT W/WO RMVL TUBE OVARY Hysterectomy, SARAH + BSO in stages VAGINAL HYSTERECTOMY FAMILY HISTORY Problem Relation Age of Onset Hypertension Mother Breast Cancer Mother Diabetes Father Heart Father Hypertension Father Hypertension Sister Hypertension Brother 3 brothers all with hypertension diabetes all have this Thyroid Daughter Hypertension Son Diabetes Son Cancer Daughter thyroid Diabetes Sister x 2 both have diabetes Cancer Brother All 3 Brothers Hypertension Other Several Family Member Social History Tobacco Use Smoking status: Never Smokeless tobacco: Never Vaping Use Vaping Use: Never used Substance Use Topics Alcohol use: Not Currently Drug use: Never Past medical history, appointments, medications, allergies reviewed. Pertinent Lab/Diagnostic Studies are reviewed and discussed today Current Outpatient Medications: REPATHA PUSHTRONEX 420 mg/3.5 mL wearable injector carvedilol (COREG) 3.125 mg tablet fluticasone (FLONASE) 50 mcg/actuation nasal spray losartan (COZAAR) [address] (PROTONIX) 20 mg tablet Lancets lancets hydrocortisone 2.5 % cream DULoxetine (CYMBALTA) 30 mg capsule semaglutide (OZEMPIC) 0.25 mg or 0.5 mg (2 mg/3 mL) pen alirocumab (PRALUENT PEN) 75 mg/mL pen blood sugar diagnostic (BLOOD GLUCOSE TEST) test strip TREMFYA 100 mg/mL AutoInjector Blood Sugar Diagnostic, Drum (ACCU-CHEK COMPACT TEST) Strp blood-glucose meter, drum-type(ACCU-CHEK COMPACT PLUS CARE KIT) Review of Systems CONSTITUTIONAL: No fevers, chills night sweats, unintended weight loss CARDIOVASCULAR: No chest pain, dyspnea, palpitations, orthopnea, PND, ankle edema. PULM: No dyspnea, unexplained cough. GI: No dysphagia/odynophagia, problematic reflux, constipation, diarrhea, changes in stool habits, hematochezia, melena. : No new urinary complaints, including dysuria, gross hematuria or pyuria. NEURO: No new balance problems, peripheral weakness/paresthesias or numbness of concern. Physical Exam BP 124/80 Pulse 67 Resp 16 Wt 61.2 kg (135 lb) BMI 26.37 kg/m General appearance: Well appearing, alert, in no acute distress, well nourished. Skin: Skin color, texture, turgor normal, no suspicious rashes or lesions Head: Normocephalic, no masses, lesions, tenderness or abnormalities Eyes: Anicteric sclera. Pupils are equally round and reactive to light. Extraocular movements are intact. Lungs: Lungs clear to auscultation. No wheezing, rhonchi, rales Heart: RRR without murmur, gallop, or rubs. Extremities: No deformities, edema, skin discoloration, clubbing or cyanosis. Good capillary refill. ASSESSMENT/PLAN: 1. Statin intolerance - ICD9: 995.27, ICD10: Z78.9 (primary diagnosis) She is waiting to get on the repatha. 2. Diabetic mononeuropathy associated with diabetes mellitus due to underlying condition ([facility]) - ICD9: 249.60, 355.9, ICD10: E08.41 - HEMOGLOBIN A1C 3. Idiopathic esophageal varices without bleeding ([facility]) - ICD9: 456.1, ICD10: I85.00 4. Arthropathic psoriasis, unspecified ([facility]) - ICD9: 696.0, ICD10: L40.50 5. PAD (peripheral artery disease) ([facility]) - ICD9: 443.9, ICD10: I73.9 6. Controlled type 2 diabetes mellitus without complication, without long-term current use of insulin ([facility]) - ICD9: 250.00, ICD10: E11.9 - LIPID PANEL BASIC - COMPREHENSIVE METABOLIC PANEL - COMPLETE BLOOD COUNT AND DIFFERENTIAL 7. Gout of big toe - ICD9: 274.01, ICD10: M10.9 - URIC ACID 8. Vitamin D deficiency - ICD9: 268.9, ICD10: E55.9 9. Vitamin B12 deficiency - ICD9: 266.2, ICD10: E53.8 - VITAMIN B12 We stopped the potassium Cut down the ozempic to 0.5 mgs weekly Taper and stop the cymbalta, 30 mgs every other day for the next 6 weeks and stop. If at any point you begin to realize that it was actually helping you and want to be back on the medication , restart. Disc with dr Robles about the need for the the liver medication Please try to get half hour of exercise at least daily We need to stop the weight loss and keep the weight stable Rodrigo Salas MD documented in this encounterSycamore Medical Center07-08-2024 Telephone encounter Note * Telephone Encounter - Maria A Thayer MA - 11/20/2023 1:10 PM EDT The following approved medication requests have been transmitted electronically. Requested Prescriptions Signed Prescriptions Disp Refills REPATHA PUSHTRONEX 420 mg/3.5 mL wearable injector 12 Each 0 Si.5 mL by INJECTION(UNSPECIFIED PARENTERAL ROUTES) route once every month. Once a month Authorizing Provider: REINALDO CHOI MA [facility]07-08-2024 Miscellaneous Notes* Telephone Encounter - Maria A Thayer MA - 11/20/2023 1:10 PM EDT The following approved medication requests have been transmitted electronically. Requested Prescriptions Signed Prescriptions Disp Refills REPATHA PUSHTRONEX 420 mg/3.5 mL wearable injector 12 Each 0 Si.5 mL by INJECTION(UNSPECIFIED PARENTERAL ROUTES) route once every month. Once a month Authorizing Provider: REINALDO CHOI MA * Telephone Encounter - Suzi Nicole RN - 11/13/2023 3:34 PM EDT Pt called back again requesting the below prescription be sent to [facility] in [place].Suzi Nicole RN * Telephone Encounter - Cathi Peterson MA - 11/13/2023 2:59 PM EDT Patient reports her insurance no longer covers praluent. She requests a new prescription of Repathasent to [facility] [place]. Cathi Peterson MA documented in this encounterSycamore Medical Center07-01-2024 Telephone encounter Note * Telephone Encounter - Suzi Nicole RN - 11/13/2023 3:34 PM EDT Pt called back again requesting the below prescription be sent to [facility] in [place].Suzi Nicole RN [facility]07-01-2024 Telephone encounter Note* Telephone Encounter - Cathi Peterson MA - 11/13/2023 2:59 PM EDT Patient reports her insurance no longer covers praluent. She requests a new prescription of Repathasent to [facility]. Cathi Peterson MA [facility]06-24-2024 History of Present illness Narrative* Reinaldo Choi MD - 11/06/2023 12:14 PM EDT Images from the original note were not included. Reinaldo Choi MD Interventional Cardiology [address] [place] [address] [phone] Chief Complaint Patient presents with: Follow Up HISTORY OF PRESENT ILLNESS: Ms. Guillen is a 78 year old female seen in my office today for assessment and management prior history of moderate coronary artery disease involve the left anterior descending artery with hyperlipidemia Patient continues doing reasonably well she does have exertional dyspnea chest pain consistent withangina with physical activity which is worse than before Cardiac Risk Factors age (male over 45, female over 55), hyperlipidemia, diabetes, hypertension, family history of CAD PAST MEDICAL HISTORY Diagnosis Date Adjustment disorder with depressed mood 03/17/2005 Arthritis Coronary artery disease Dyspareunia 03/17/2005 Esophageal reflux Gastroesophageal reflux Esophageal reflux Impaired fasting glucose 03/17/2005 Mixed hyperlipidemia Myalgia and myositis, unspecified Other and unspecified hyperlipidemia 03/17/2005 PMH - PAST MEDICAL HISTORY OF TIA's PMH - PAST MEDICAL HISTORY OF skin cancer Rheumatoid arthritis(714.0) Trace cataracts 2008 Uncontrolled type 2 diabetes mellitus with hyperglycemia (HCC) 04/01/2010 Unspecified asthma(493.90) 03/17/2005 Unspecified closed fracture of ankle Unspecified essential hypertension 03/17/2005 PAST SURGICAL HISTORY Procedure Laterality Date ABDOMINAL SURGERY HX ADENOIDECTOMY PRIMARY <AGE 12 child Adenoidectomy ADENOIDECTOMY SECONDARY AGE 12/> APPENDECTOMY age 30s incidental to SARAH APPENDECTOMY HX BIOPSY BREAST OPEN INCISIONAL Bx of breast, incisional x3 both BREAST SURGERY HX CHOLECYSTECTOMY Cholecystectomy CHOLECYSTECTOMY COLONOSCOPY FLX DX W/COLLJ SPEC WHEN PFRMD 08/2002 Colonoscopy COLONOSCOPY FLX DX W/COLLJ SPEC WHEN PFRMD 2010 Colonoscopy COLONOSCOPY SCREENING 07/07/2021 EGD W/O BRSH SPEC VARICIES INJ 07/07/2021 ESOPHAGOGASTRODUODENOSCOPY TRANSORAL DIAGNOSTIC EGD ESOPHAGOGASTRODUODENOSCOPY TRANSORAL DIAGNOSTIC 08/2002 EGD ESOPHAGOGASTRODUODENOSCOPY TRANSORAL DIAGNOSTIC 04/14/2011 EGD EYE SURGERY HX KNEE LEFT OP SURGERY LUMPECTOMY/RADIOTHERAPY DIAG MAMM/A10 1980s bilat NEUROPLASTY &/TRANSPOS MEDIAN NRV CARPAL TUNNE both PAST SURGICAL HISTORY OF benign leg tumor PAST SURGICAL HISTORY OF multiple brest lumpectomy x3 benign both PAST SURGICAL HISTORY OF facial/mouth surgery PAST SURGICAL HISTORY OF dental surgery PAST SURGICAL HISTORY OF bladder/colon with fistula tumor benign PAST SURGICAL HISTORY OF benign tumor from right lower leg PAST SURGICAL HISTORY OF 04/27/2005 right shoulder scope and debridement SKIN BIOPSY HX TONSILLECTOMY HX TONSILLECTOMY PRIMARY/SECONDARY <AGE 12 chil Tonsillectomy TOTAL ABDOMINAL HYSTERECT W/WO RMVL TUBE OVARY Hysterectomy, SARAH + BSO in stages VAGINAL HYSTERECTOMY FAMILY HISTORY Problem Relation Age of Onset Hypertension Mother Breast Cancer Mother Diabetes Father Heart Father Hypertension Father Hypertension Sister Hypertension Brother 3 brothers all with hypertension diabetes all have this Thyroid Daughter Hypertension Son Diabetes Son Cancer Daughter thyroid Diabetes Sister x 2 both have diabetes Cancer Brother All 3 Brothers Hypertension Other Several Family Member Social History Tobacco Use Smoking status: Never Smokeless tobacco: Never Vaping Use Vaping Use: Never used Substance Use Topics Alcohol use: Not Currently Drug use: Never ALLERGIES Allergen Reactions Amlodipine Swelling Biaxin [Clarithromy* Rash Metformin Diarrhea ER formulation caused symptoms at 1 tablet per day Spironolactone Other: See Comments lightheaded and dizzy Ijceraq-Yzb-Yba Red* Intolerance myalgia and diarrhea Medications: Current Outpatient Medications Medication Sig Dispense Refill carvedilol (COREG) 3.125 mg tablet TAKE 4 TABLETS TWICE A DAY WITH MEALS 720 tablet 3 DULoxetine (CYMBALTA) 30 mg capsule Take 1 capsule by mouth once daily. 90 capsule 1 fluticasone (FLONASE) 50 mcg/actuation nasal spray USE 2 SPRAYS IN EACH NOSTRIL ONCE DAILY. RINSE MOUTH AFTER USE. 48 mL 1 losartan (COZAAR) 100 mg tablet Take 1 tablet by mouth once daily. 90 tablet 3 semaglutide (OZEMPIC) 1 mg/dose (4 mg/3 mL) pen Inject 1 mg subcutaneously one time a week. 4 Each 3 potassium chloride SR (MICRO-K) 10 mEq CR capsule Take 1 capsule by mouth once daily. [address] (PROTONIX) 20 mg tablet blood sugar diagnostic (BLOOD GLUCOSE TEST) test strip Test blood sugar(s) 1 times daily. Dx: Type 2 DM - Controlled E11.9 Insulin: No 50 Strip 11 Lancets lancets Test blood sugar(s) 1 times daily. Dx: Type 2 DM - Controlled E11.9 Insulin: No 100Each 11 hydrocortisone 2.5 % cream abdomenal areas as needed 60 g 6 TREMFYA 100 mg/mL AutoInjector Inject 1 Dose subcutaneously as directed. Every other month Blood Sugar Diagnostic, Drum (ACCU-CHEK COMPACT TEST) Strp TEST BLOOD SUGAR ONCE DAILY. 250.00 (Patient taking differently: TEST BLOOD SUGAR ONCE DAILY. 250.00 Takes once a month or so) 51 Strip 11 blood-glucose meter, drum-type(ACCU-CHEK COMPACT PLUS CARE KIT) As directed 1 0 alirocumab (PRALUENT PEN) 75 mg/mL pen Inject 1 mL subcutaneously every other week. 6 Each 1 No current facility-administered medications for this visit. ROS Physical Examination: Vitals:BP 129/79 Pulse 70 Ht 5' 0 (1.52m) Wt 135 lb 9.6 oz (61.5kg) SpO2 97% BMI 26.48 kg/(m^2). BP w/Orthostatic Vitals Date and Time Orthostatic BP Orthostatic Pulse BP Pulse BP Position BP Site BP Cuff Size 11/06/23 0915 -- -- 129/79 70 -- -- -- Last 2 Encounter Wt Readings: Date: Wt: 11/06/2023 61.5 kg (135 lb 9.6 oz) 05/22/2023 64 kg (141 lb) Physical Exam Pertinent Labs: CBC: Hemoglobin (g/dL) Date Value 01/23/2023 13.2 03/23/2021 13.7 Hematocrit (%) Date Value 01/23/2023 38.1 03/23/2021 41.6 WBC (k/uL) Date Value 01/23/2023 6.31 03/23/2021 6.57 Platelet Count (k/uL) Date Value 01/23/2023 286 03/23/2021 286 BMP: Glucose (mg/dL) Date Value 03/27/2023 79 03/23/2021 124 Potassium (mmol/L) Date Value 03/27/2023 4.4 03/23/2021 4.0 Sodium (mmol/L) Date Value 03/27/2023 140 03/23/2021 137 Chloride (mmol/L) Date Value 03/27/2023 104 03/23/2021 97 CO2 (mmol/L) Date Value 03/27/2023 25 03/23/2021 29 Creatinine (mg/dL) Date Value 03/27/2023 0.90 03/23/2021 0.92 BUN (mg/dL) Date Value 03/27/2023 16 03/23/2021 18 Anion Gap (mmol/L) Date Value 03/27/2023 11 03/23/2021 11 Calcium (mg/dL) Date Value 03/23/2021 9.8 Calcium, Total (mg/dL) Date Value 03/27/2023 9.3 INR: Lipid Profile: Cholesterol, Total Date Value Ref Range Status 03/27/2023 175 <200 mg/dL Final Comment: <200 mg/dL, Desirable 200-239 mg/dL, Borderline high >239 mg/dL, High HDL Cholesterol Date Value Ref Range Status 03/27/2023 56 >39 mg/dL Final Comment: 40-59 mg/dL, Acceptable >59 mg/dL, High: Negative risk factor for coronary heart disease <40 mg/dL, Low: Positive risk factor for coronary heart disease LDL Cholesterol Date Value Ref Range Status 03/27/2023 103 (H) <100 mg/dL Final Comment: <100 mg/dL, Optimal 100-129 mg/dL, Near optimal/above optimal 130-159 mg/dL, Borderline high 160-189 mg/dL, High >189 mg/dL, Very high Secondary prevention optimal LDL Cholesterol levels are recommended to be < 70 mg/dL Triglyceride Date Value Ref Range Status 03/27/2023 81 <150 mg/dL Final Comment: <150 mg/dL, Normal 150-199 mg/dL, Borderline high 200-499 mg/dL, High >499 mg/dL, Very high Hemoglobin A1C: No results found for: HGBA1C TSH: No results found for: TSHREFL Prior Cardiac Testing none Assessment and Plan: 78 years old female patient with moderate LAD disease with exertional dyspnea and chest pain consistent with angina ASSESSMENT/PLAN: 1. Essential hypertension - ICD9: 401.9, ICD10: I10 (primary diagnosis) - Controlled - Continue current medications - Recommend home blood pressure monitoring, to bring results to next visit - Encouraged sodium restriction, DASH or Mediterranean diet - Recommend regular aerobic exercise - ECG COMPLETE 2. Mixed hyperlipidemia - ICD9: 272.2, ICD10: E78.2 - Controlled - Continue current medications - Counseled on healthy diet and regular exercise - ECG COMPLETE 3. Coronary artery disease of [place] heart with stable angina pectoris, unspecified vessel or lesion type (HCC) - ICD9: 414.01, 413.9, ICD10: I25.118 Moderate disease in the LAD since her symptoms worsened compared to a year ago admitted scheduled for nuclear stress test for risk stratification - ECG COMPLETE - NM CARDIAC PERF STRESS/PHARM - REGADENOSON 0.4 MG/5 ML INTRAVENOUS SYRINGE - AMINOPHYLLINE 250 MG/10 ML INTRAVENOUS SOLUTION - METOPROLOL TARTRATE 5 MG/5 ML INTRAVENOUS SOLUTION 4. Shortness of breath - ICD9: 786.05, ICD10: R06.02 Likely due to progression of her coronary artery disease - NM CARDIAC PERF STRESS/PHARM - REGADENOSON 0.4 MG/5 ML INTRAVENOUS SYRINGE - AMINOPHYLLINE 250 MG/10 ML INTRAVENOUS SOLUTION - METOPROLOL TARTRATE 5 MG/5 ML INTRAVENOUS SOLUTION Reinaldo Choi MD Follow up plannin months Electronically signed by Reinaldo Choi MD on November 06, 2023, 12:14 PM The above note was partially created using a dictation recognition software. A reasonable attempt has been made to correct any errors. documented in this encounterSy[facility]03-[facility]24 Miscellaneous Notes* Telephone Encounter - Melinda Meléndez LPN - 07/21/2023 2:37 PM EST Faxed as requested. * Telephone Encounter - Hazel Leahy RN - 07/20/2023 9:34 AM EST Diana from [employer] [place] calls and states that she had received the office visit note from 03/27/2023 which states that patient would benefit from wearing diabetic shoes and custom inserts. Diana asking if Dr. Girard can write on first page that she agrees that patient would benefit from wearing diabetic shoes and custom inserts and then sign and fax to [phone]. Please review and advise, Hazel Leahy RN documented in this encounterSycam[facility]11-13-2023 History of Present illness Narrative* Deborah Fernandez APRN.WALL CRANE OPERATOR - 03/27/2023 10:20 AM EST Chief Complaint Patient presents with: Follow Up: Fibro & depression- didn't start Cymbalta HPI Gabby Guillen is a 77 year old female who presents here today for anxiety, depression, and pain follow-up. Patient was seen 4 weeks ago and ordered duloxetine. Has not started this yet as she did not think the pharmacy received it. Will start after this appointment. DIABETES MELLITUS: Ms. Guillen denies excessive thirst or increased frequency of urination, chest pain or dyspnea , numbness, tingling or pain in extremities, new or unusual visual symptoms, low sugar/hypoglycemic reactions, weight loss/gain, lightheadedness/dizziness, and bowel changes/loose stools.Follows a diabetic diet some of the time. She is compliant with medication(s) and is tolerating med(s) without any side effects. She reports checking her glucose on a once a day schedule with sugars in the fasting 1000s range. Patient's last HgA1C was Hemoglobin A1C (%) Date Value 12/09/2022 5.1 10/05/2022 5.3 03/23/2021 6.2 12/21/2020 6.1 ) Last Ophthalmology exam was within the past 12 months REVIEW OF SYSTEMS See HPI PAST MEDICAL HISTORY Diagnosis Date Adjustment disorder with depressed mood 03/17/2005 Arthritis Coronary artery disease Dyspareunia 03/17/2005 Esophageal reflux Gastroesophageal reflux Esophageal reflux Impaired fasting glucose 03/17/2005 Mixed hyperlipidemia Myalgia and myositis, unspecified Other and unspecified hyperlipidemia 03/17/2005 PMH - PAST MEDICAL HISTORY OF TIA's PMH - PAST MEDICAL HISTORY OF skin cancer Rheumatoid arthritis(714.0) Trace cataracts 2007 Uncontrolled type 2 diabetes mellitus with hyperglycemia (HCC) 04/01/2010 Unspecified asthma(493.90) 03/17/2005 Unspecified closed fracture of ankle Unspecified essential hypertension 03/17/2005 PAST SURGICAL HISTORY Procedure Laterality Date ABDOMINAL SURGERY HX ADENOIDECTOMY PRIMARY <AGE 12 child Adenoidectomy ADENOIDECTOMY SECONDARY AGE 12/> APPENDECTOMY age 30s incidental to [facility] APPENDECTOMY HX BIOPSY BREAST OPEN INCISIONAL Bx of breast, incisional x3 both BREAST SURGERY HX CHOLECYSTECTOMY Cholecystectomy CHOLECYSTECTOMY COLONOSCOPY FLX DX W/COLLJ SPEC WHEN PFRMD 08/2002 Colonoscopy COLONOSCOPY FLX DX W/COLLJ SPEC WHEN PFRMD 2010 Colonoscopy COLONOSCOPY SCREENING 07/07/2021 EGD W/O BRSH SPEC VARICIES INJ 07/07/2021 ESOPHAGOGASTRODUODENOSCOPY TRANSORAL DIAGNOSTIC EGD ESOPHAGOGASTRODUODENOSCOPY TRANSORAL DIAGNOSTIC 08/2002 EGD ESOPHAGOGASTRODUODENOSCOPY TRANSORAL DIAGNOSTIC 04/14/2011 EGD EYE SURGERY HX KNEE LEFT OP SURGERY LUMPECTOMY/RADIOTHERAPY DIAG MAMM/A10 1980s bilat NEUROPLASTY &/TRANSPOS MEDIAN NRV CARPAL TUNNE both PAST SURGICAL HISTORY OF benign leg tumor PAST SURGICAL HISTORY OF multiple brest lumpectomy x3 benign both PAST SURGICAL HISTORY OF facial/mouth surgery PAST SURGICAL HISTORY OF dental surgery PAST SURGICAL HISTORY OF bladder/colon with fistula tumor benign PAST SURGICAL HISTORY OF benign tumor from right lower leg PAST SURGICAL HISTORY OF 04/27/2005 right shoulder scope and debridement SKIN BIOPSY HX TONSILLECTOMY HX TONSILLECTOMY PRIMARY/SECONDARY <AGE 12 chil Tonsillectomy TOTAL ABDOMINAL HYSTERECT W/WO RMVL TUBE OVARY Hysterectomy, SARAH + BSO in stages VAGINAL HYSTERECTOMY ALLERGIES Amlodipine, Biaxin [Clarithromycin], Metformin, Spironolactone, and Jyrhrwp-Xkl-Nby Reductase Inhibitors MEDICATIONS alirocumab (PRALUENT PEN) 75 mg/mL pen Inject 1 mL subcutaneously every other week. fluticasone (FLONASE) 50 mcg/actuation nasal spray USE 2 SPRAYS IN EACH NOSTRIL ONCE DAILY. RINSE MOUTH AFTER USE. pantoprazole DR (PROTONIX) 20 mg tablet blood sugar diagnostic (BLOOD GLUCOSE TEST) test strip Test blood sugar(s) 1 times daily. Dx: Type 2 DM - Controlled E11.9 Insulin: No Lancets lancets Test blood sugar(s) 1 times daily. Dx: Type 2 DM - Controlled E11.9 Insulin: No semaglutide (OZEMPIC) 1 mg/dose (4 mg/3 mL) pen Inject 1 mg subcutaneously one time a week. potassium chloride SR (MICRO-K) 10 mEq CR capsule Take 1 capsule by mouth once daily. losartan (COZAAR) 100 mg tablet Take 1 tablet by mouth once daily. carvedilol (COREG) 3.125 mg tablet Take 4 tablets by mouth twice daily with meals. hydrocortisone 2.5 % cream abdomenal areas as needed TREMFYA 100 mg/mL AutoInjector Inject 1 Dose subcutaneously as directed. Every other month ketoconazole (NIZORAL) 2 % cream Apply 1 application to affected area once daily. Apply to rash andsurrounding area (Patient taking differently: Apply 1 application to affected area once daily. Apply to rash and surrounding area Uses as needed) Blood Sugar Diagnostic, Drum (ACCU-CHEK COMPACT TEST) Strp TEST BLOOD SUGAR ONCE DAILY. 250.00 (Patient taking differently: TEST BLOOD SUGAR ONCE DAILY. 250.00 Takes once a month or so) blood-glucose meter, drum-type(ACCU-CHEK COMPACT PLUS CARE KIT) As directed DULoxetine (CYMBALTA) 20 mg capsule Take 1 capsule by mouth once daily. FAMILY HISTORY Problem Relation Age of Onset Hypertension Mother Breast Cancer Mother Diabetes Father Heart Father Hypertension Father Hypertension Sister Hypertension Brother 3 brothers all with hypertension diabetes all have this Thyroid Daughter Hypertension Son Diabetes Son Cancer Daughter thyroid Diabetes Sister x 2 both have diabetes Cancer Brother All 3 Brothers Hypertension Other Several Family Member Social History Tobacco Use Smoking status: Never Smokeless tobacco: Never Vaping Use Vaping Use: Never used Substance Use Topics Alcohol use: Not Currently Drug use: Never PHYSICAL EXAM BP 118/78 (BP Site: Left Arm, BP Position: Sitting, BP Cuff Size: Regular Adult) Pulse 65 Resp 16 Wt 65.6 kg (144 lb 9.6 oz) SpO2 96% BMI 28.24 kg/m Appearance: well dressed well groomed, cooperative, and pleasant Behavior: good eye contact Speech: normal and fluent and coherent Mood: happy Affect: appropriate Perceptions: none Thought process: normal Thought Content: normal Intelligence level: normal Insight: good Judgment: good Eyes: conjunctiva pink and moist, no icterus, sclera white, non-injected Lungs: Lungs clear to auscultation. No wheezing, rhonchi, rales. Heart: RRR without murmur, gallop, or rubs. No ectopy BUE Extremities: No deformities, edema, skin discoloration, clubbing or cyanosis. Good capillary refill. Feet:Shoes and socks removed, No deformities, ulcers, calluses, normal distal pulses, sensitive to 10 gm monofilament, and vibratory perception normal ASSESSMENT/PLAN: 1. Controlled type 2 diabetes mellitus without complication, without long-term current use of insulin (HCC) - ICD9: 250.00, ICD10: E11.9 (primary diagnosis) - Control undetermined, due for labs - Continue current medications - Blood glucose monitoring on a once daily schedule - Counseled on healthy diet and regular exercise - Discussed need for and benefit of weight loss. BMI 28.24 kg/(m^2) - SEMAGLUTIDE 1 MG/DOSE (4 MG/3 ML) SUBCUTANEOUS PEN INJECTOR - BASIC METABOLIC PNL - HGB A1C - ALBUMIN/CREAT RATIO RND UR 2. Other chronic pain - ICD9: 338.29, ICD10: G89.29 - needs to start duloxetine and then return in 4-6 weeks for follow up. 3. Anxiety and depression - ICD9: 300.00, 311, ICD10: F41.9, F32.A As above - Reviewed concept of neurochemical imbalance wth depression/anxiety, treatment options and benefits of counseling in combination with medication. Also reviewed benefits of sleep hygeine, diet and exercise - Instructed patient to contact office or [id number] after-hours promptly should condition worsen or any new symptoms appear. - Counseling Center [facility] and after hours crisis line 4. Encounter for immunization - ICD9: V03.89, ICD10: Z23 - INFLUENZA VACCINE, PRSV FREE, AGE 65+ YR, HIGH DOSE, QUADRIVALENT (FLUZONE HIGH-DOSE) Deborah Fernandez APRN.CNP Prescription instructions reviewed with patient as applicable. Potential red flag symptoms discussed with the patient. Reviewed appropriate action plan to take if red flag symptoms occur. Patient agreeable to treatment plan Deborah Fernandez APRN.CNP documented in this encounterSy[facility]10-30-2023 History of Present illness Narrative* Reinaldo Choi MD - 03/13/2023 5:04 PM EDT Images from the original note were not included. Reinaldo Choi MD Interventional Cardiology [address] [place] [address] Chief Complaint Patient presents with: Established Patient Follow-Up HISTORY OF PRESENT ILLNESS: Ms. Guillen is a 77 year old female seen in my office today prior history of hypertensive heart disease with diffuse coronary artery disease Denies any chest pain or shortness of breath Patient still feels dizzy when she change position from sitting to standing suggest orthostatic hypotension Pressures within normal range Cardiac Risk Factors age (male over 45, female over 55), hyperlipidemia, hypertension, family history of CAD PAST MEDICAL HISTORY Diagnosis Date Adjustment disorder with depressed mood 03/17/2005 Arthritis Coronary artery disease Dyspareunia 03/17/2005 Esophageal reflux Gastroesophageal reflux Esophageal reflux Impaired fasting glucose 03/17/2005 Mixed hyperlipidemia Myalgia and myositis, unspecified Other and unspecified hyperlipidemia 03/17/2005 PMH - PAST MEDICAL HISTORY OF TIA's PMH - PAST MEDICAL HISTORY OF skin cancer Rheumatoid arthritis(714.0) Trace cataracts 2008 Uncontrolled type 2 diabetes mellitus with hyperglycemia (HCC) 04/01/2010 Unspecified asthma(493.90) 03/17/2005 Unspecified closed fracture of ankle Unspecified essential hypertension 03/17/2005 PAST SURGICAL HISTORY Procedure Laterality Date ABDOMINAL SURGERY HX ADENOIDECTOMY PRIMARY <AGE 12 child Adenoidectomy ADENOIDECTOMY SECONDARY AGE 12/> APPENDECTOMY age 30s incidental to [facility] APPENDECTOMY HX BIOPSY BREAST OPEN INCISIONAL Bx of breast, incisional x3 both BREAST SURGERY HX CHOLECYSTECTOMY Cholecystectomy CHOLECYSTECTOMY COLONOSCOPY FLX DX W/COLLJ SPEC WHEN PFRMD 08/2002 Colonoscopy COLONOSCOPY FLX DX W/COLLJ SPEC WHEN PFRMD 2010 Colonoscopy COLONOSCOPY SCREENING 07/07/2021 EGD W/O BRSH SPEC VARICIES INJ 07/07/2021 ESOPHAGOGASTRODUODENOSCOPY TRANSORAL DIAGNOSTIC EGD ESOPHAGOGASTRODUODENOSCOPY TRANSORAL DIAGNOSTIC 08/2002 EGD ESOPHAGOGASTRODUODENOSCOPY TRANSORAL DIAGNOSTIC 04/14/2011 EGD EYE SURGERY HX KNEE LEFT OP SURGERY LUMPECTOMY/RADIOTHERAPY DIAG MAMM/A10 1980s bilat NEUROPLASTY &/TRANSPOS MEDIAN NRV CARPAL TUNNE both PAST SURGICAL HISTORY OF benign leg tumor PAST SURGICAL HISTORY OF multiple brest lumpectomy x3 benign both PAST SURGICAL HISTORY OF facial/mouth surgery PAST SURGICAL HISTORY OF dental surgery PAST SURGICAL HISTORY OF bladder/colon with fistula tumor benign PAST SURGICAL HISTORY OF benign tumor from right lower leg PAST SURGICAL HISTORY OF 04/27/2005 right shoulder scope and debridement SKIN BIOPSY HX TONSILLECTOMY HX TONSILLECTOMY PRIMARY/SECONDARY <AGE 12 chil Tonsillectomy TOTAL ABDOMINAL HYSTERECT W/WO RMVL TUBE OVARY Hysterectomy, SARAH + BSO in stages VAGINAL HYSTERECTOMY FAMILY HISTORY Problem Relation Age of Onset Hypertension Mother Breast Cancer Mother Diabetes Father Heart Father Hypertension Father Hypertension Sister Hypertension Brother 3 brothers all with hypertension diabetes all have this Thyroid Daughter Hypertension Son Diabetes Son Cancer Daughter thyroid Diabetes Sister x 2 both have diabetes Cancer Brother All 3 Brothers Hypertension Other Several Family Member Social History Tobacco Use Smoking status: Never Smokeless tobacco: Never Vaping Use Vaping Use: Never used Substance Use Topics Alcohol use: Not Currently Drug use: Never ALLERGIES Allergen Reactions Amlodipine Swelling Biaxin [Clarithromy* Rash Metformin Diarrhea ER formulation caused symptoms at 1 tablet per day Spironolactone Other: See Comments lightheaded and dizzy Ftzgbbh-Kpm-Ecq Red* Intolerance myalgia and diarrhea Medications: Current Outpatient Medications Medication Sig Dispense Refill DULoxetine (CYMBALTA) 20 mg capsule Take 1 capsule by mouth once daily. 30 capsule 0 fluticasone (FLONASE) 50 mcg/actuation nasal spray USE 2 SPRAYS IN EACH NOSTRIL ONCE DAILY. RINSE MOUTH AFTER USE. 16 mL [address] (PROTONIX) 20 mg tablet blood sugar diagnostic (BLOOD GLUCOSE TEST) test strip Test blood sugar(s) 1 times daily. Dx: Type 2 DM - Controlled E11.9 Insulin: No 50 Strip 11 Lancets lancets Test blood sugar(s) 1 times daily. Dx: Type 2 DM - Controlled E11.9 Insulin: No 100Each 11 semaglutide (OZEMPIC) 1 mg/dose (4 mg/3 mL) pen Inject 1 mg subcutaneously one time a week. 4 Each 3 potassium chloride SR (MICRO-K) 10 mEq CR capsule Take 1 capsule by mouth once daily. 90 capsule 3 losartan (COZAAR) 100 mg tablet Take 1 tablet by mouth once daily. 90 tablet 3 hydrocortisone 2.5 % cream abdomenal areas as needed 60 g 6 TREMFYA 100 mg/mL AutoInjector Inject 1 Dose subcutaneously as directed. Every other month ketoconazole (NIZORAL) 2 % cream Apply 1 application to affected area once daily. Apply to rash andsurrounding area (Patient taking differently: Apply 1 application to affected area once daily. Apply to rash and surrounding area Uses as needed) 30 g 5 Blood Sugar Diagnostic, Drum (ACCU-CHEK COMPACT TEST) Strp TEST BLOOD SUGAR ONCE DAILY. 250.00 (Patient taking differently: TEST BLOOD SUGAR ONCE DAILY. 250.00 Takes once a month or so) 51 Strip 11 blood-glucose meter, drum-type(ACCU-CHEK COMPACT PLUS CARE KIT) As directed 1 0 alirocumab (PRALUENT PEN) 75 mg/mL pen Inject 1 mL subcutaneously every other week. 6 Each 1 carvedilol (COREG) 3.125 mg tablet Take 4 tablets by mouth twice daily with meals. 720 tablet 3 No current facility-administered medications for this visit. Review of Systems Constitutional: Negative for chills, diaphoresis, fever, malaise/fatigue and weight loss. HENT: Negative for congestion, ear discharge, ear pain, hearing loss, nosebleeds, sinus pain, sore throat and tinnitus. Eyes: Negative for blurred vision, double vision, photophobia, pain, discharge and redness. Respiratory: Negative for cough, hemoptysis, sputum production, shortness of breath, wheezing and stridor. Cardiovascular: Negative for chest pain, palpitations, orthopnea, claudication, leg swelling and PND. Gastrointestinal: Negative for abdominal pain, blood in stool, constipation, diarrhea, heartburn, melena, nausea and vomiting. Genitourinary: Negative for dysuria, flank pain, frequency, hematuria and urgency. Musculoskeletal: Negative for back pain, falls, joint pain, myalgias and neck pain. Skin: Negative for itching and rash. Neurological: Negative for dizziness, tingling, tremors, sensory change, speech change, focal weakness, seizures, loss of consciousness, weakness and headaches. Endo/Heme/Allergies: Negative for environmental allergies and polydipsia. Does not bruise/bleed easily. Psychiatric/Behavioral: Negative for depression, hallucinations, memory loss, substance abuse and suicidal ideas. The patient is not nervous/anxious and does not have insomnia. Physical Examination: Vitals:BP 110/70 Pulse 68 Wt 144 lb (65.3kg) SpO2 97% BP w/Orthostatic Vitals Date and Time Orthostatic BP Orthostatic Pulse BP Pulse BP Position BP Site BP Cuff Size 03/13/23 1543 -- -- 110/70 68 Sitting Right Arm Regular Adult Last 2 Encounter Wt Readings: Date: Wt: 03/13/2023 65.3 kg (144 lb) 02/24/2023 65.7 kg (144 lb 12.8 oz) Physical Exam Constitutional: General: She is not in acute distress. Appearance: She is not diaphoretic. HENT: Head: Normocephalic and atraumatic. Right Ear: External ear normal. Left Ear: External ear normal. Nose: Nose normal. Mouth/Throat: Pharynx: Oropharynx is clear. Eyes: General: Right eye: No discharge. Left eye: No discharge. Conjunctiva/sclera: Conjunctivae normal. Pupils: Pupils are equal, round, and reactive to light. Cardiovascular: Rate and Rhythm: Normal rate and regular rhythm. Heart sounds: Normal heart sounds, S1 normal and S2 normal. No murmur heard. No friction rub. No gallop. No S3 or S4 sounds. Pulmonary: Effort: Pulmonary effort is normal. No respiratory distress. Breath sounds: Normal breath sounds. No wheezing or rales. Chest: Chest wall: No tenderness. Musculoskeletal: General: Normal range of motion. Cervical back: Normal range of motion and neck supple. Skin: General: Skin is warm and dry. Neurological: Mental Status: She is alert and oriented to person, place, and time. Psychiatric: Mood and Affect: Mood normal. Thought Content: Thought content normal. Judgment: Judgment normal. Pertinent Labs: CBC: Hemoglobin (g/dL) Date Value 01/23/2023 13.2 03/23/2021 13.7 Hematocrit (%) Date Value 01/23/2023 38.1 03/23/2021 41.6 WBC (k/uL) Date Value 01/23/2023 6.31 03/23/2021 6.57 Platelet Count (k/uL) Date Value 01/23/2023 286 03/23/2021 286 BMP: Glucose (mg/dL) Date Value 12/09/2022 91 03/23/2021 124 Potassium (mmol/L) Date Value 12/09/2022 5.1 03/23/2021 4.0 Sodium (mmol/L) Date Value 12/09/2022 136 03/23/2021 137 Chloride (mmol/L) Date Value 12/09/2022 102 03/23/2021 97 CO2 (mmol/L) Date Value 12/09/2022 28 03/23/2021 29 Creatinine (mg/dL) Date Value 12/09/2022 1.02 03/23/2021 0.92 BUN (mg/dL) Date Value 12/09/2022 19 03/23/2021 18 Anion Gap (mmol/L) Date Value 12/09/2022 6 03/23/2021 11 Calcium (mg/dL) Date Value 03/23/2021 9.8 Calcium, Total (mg/dL) Date Value 12/09/2022 9.5 INR: Lipid Profile: Cholesterol, Total Date Value Ref Range Status 12/09/2022 184 <200 mg/dL Final Comment: <200 mg/dL, Desirable 200-239 mg/dL, Borderline high >239 mg/dL, High HDL Cholesterol Date Value Ref Range Status 12/09/2022 58 >39 mg/dL Final Comment: 40-59 mg/dL, Acceptable >59 mg/dL, High: Negative risk factor for coronary heart disease <40 mg/dL, Low: Positive risk factor for coronary heart disease LDL Cholesterol Date Value Ref Range Status 12/09/2022 111 (H) <100 mg/dL Final Comment: <100 mg/dL, Optimal 100-129 mg/dL, Near optimal/above optimal 130-159 mg/dL, Borderline high 160-189 mg/dL, High >189 mg/dL, Very high Secondary prevention optimal LDL Cholesterol levels are recommended to be < 70 mg/dL Triglyceride Date Value Ref Range Status 12/09/2022 74 <150 mg/dL Final Comment: <150 mg/dL, Normal 150-199 mg/dL, Borderline high 200-499 mg/dL, High >499 mg/dL, Very high Hemoglobin A1C: No results found for: HGBA1C TSH: No results found for: TSHREFL Prior Cardiac Testing none Assessment and Plan: 77 years old female patient with hypertensive heart disease and diffuse coronary artery disease ASSESSMENT/PLAN: 1. PAD (peripheral artery disease) (HCC) - ICD9: 443.9, ICD10: I73.9 (primary diagnosis) Stable Asymptomatic - LIPID PANEL BASIC 2. Essential hypertension - ICD9: 401.9, ICD10: I10 - Controlled - Continue current medications - Recommend home blood pressure monitoring, to bring results to next visit - Encouraged sodium restriction, DASH or Mediterranean diet - Recommend regular aerobic exercise 3. Mixed hyperlipidemia - ICD9: 272.2, ICD10: E78.2 - Controlled - Continue current medications - Counseled on healthy diet and regular exercise 4. 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 stable angina pectoris (HCC) - ICD9: 414.05, 413.9, ICD10: I25.708 Few episodes of angina Stable angina Reinaldo Choi MD Follow up plannin months Electronically signed by Reinaldo Choi MD on March 13, 2023, 5:04 PM The above note was partially created using a dictation recognition software. A reasonable attempt has been made to correct any errors. documented in this encounterSy[facility]10-13-2023 Instructions* Patient Instructions* Deborah Fernandez APRN.WALL CRANE OPERATOR - 02/24/2023 10:59 AM EDT Take fluoxetine every other day for 1 week. Then start cymbalta and take fluoxetine every third day. documented in this encounterSycamore [facility] Center10-13-2023 History of Present illness Narrative* Deborah Fernandez APRN.CNP - 02/24/2023 10:27 AM EDT CC: Patient presents with: Follow Up: 6 week HPI Gabby Guillen is a 77 year old female who presents today for 6 week follow up. Was seen 6 weeks ago and started on topiramate for recurrent migraine headaches with aura. Reports no improvement with topiramate. Has had increasing fatigue and feels off balance over the last few weeks. Headache is now to entire head pressure and will get an ache to her right eye. Has been constant atvarying severity. For large amount of pain will take ibuprofen and tylenol which helps. Her reported fibromyalgia is also getting irritated with the increase in headache. Has pains and aches to multiple locations to her body as a result of fibromyalgia and this pain is more concerning to her than the headaches at this time. History of depression: Was on fluoxetine, last prescribed in 2020. Stopped for a while and had a large amount of bottles left over so restarted at some point but unsure this is helping. Alcohol use: does not drink any alcohol Drug use: No Appetite: good Suicidal Thoughts: No suicidal ideation, intent or plan REVIEW OF SYSTEMS General: no fevers, no chills, no night sweats, no recurrent infections, no change in appetite, no change in energy, and no significant changes in weight Respiratory: no cough, no wheezing, no shortness of breath, no hemoptysis Cardiovascular: no chest pain, no chest pressure, no palpitations, and no swelling Neurologic: No weakness, numbness, dizziness, memory loss, syncope. CP PHQ9 02/24/2023 Little interest or pleasure 3 - Nearly every day Feeling down, depressed, hopeless 3 - Nearly every day Trouble falling or staying asleep, sleeping too much 3 - nearly every day Feeling tired, having little energy 3 - Nearly every day Poor appetite or overeating 0 - Not at all Feeling bad about yourself, failure or you have let yourself/family down 0 - Not at all Trouble concentrating on things 1 - Several days Moving or speaking so slowly, or fidgety or restless 0 - Not at all Thoughts that you would be better off , or of hurting yourself in some way 0 - Not at all How difficult have these problems made things Somewhat difficult Interpretation of Total Score 10-14 Moderate depression LEE-7 ANXIETY SCALE 02/24/2023 FEELING NERVOUS,ANXIOUS,OR ON EDGE 1 Several days NOT BEING ABLE TO STOP OR CONTROL WORRYING 0 Not at all sure WORRYING TOO MUCH ABOUT DIFFERENT THINGS 0 Not at all sure TROUBLE RELAXING 1 Several days BEING SO RESTLESS THAT IT'S HARD TO SIT STILL 0 Not at all sure BEING EASILY ANNOYED OR IRRITABLE 3 Nearly every day FEELING AFRAID IF SOMETHING AWFUL MIGHT HAPPEN 0 Not at all sure GAD7 SCORE 5 IF YOU CHECKED OFF ANY PROBLEMS Somewhat difficult PAST MEDICAL HISTORY Diagnosis Date Adjustment disorder with depressed mood 03/17/2005 Arthritis Coronary artery disease Dyspareunia 03/17/2005 Esophageal reflux Gastroesophageal reflux Esophageal reflux Impaired fasting glucose 03/17/2005 Mixed hyperlipidemia Myalgia and myositis, unspecified Other and unspecified hyperlipidemia 03/17/2005 PMH - PAST MEDICAL HISTORY OF TIA's PMH - PAST MEDICAL HISTORY OF skin cancer Rheumatoid arthritis(714.0) Trace cataracts 2007 Uncontrolled type 2 diabetes mellitus with hyperglycemia (HCC) 04/01/2010 Unspecified asthma(493.90) 03/17/2005 Unspecified closed fracture of ankle Unspecified essential hypertension 03/17/2005 PAST SURGICAL HISTORY Procedure Laterality Date ABDOMINAL SURGERY HX ADENOIDECTOMY PRIMARY <AGE 12 child Adenoidectomy ADENOIDECTOMY SECONDARY AGE 12/> APPENDECTOMY age 30s incidental to [facility] APPENDECTOMY HX BIOPSY BREAST OPEN INCISIONAL Bx of breast, incisional x3 both BREAST SURGERY HX CHOLECYSTECTOMY Cholecystectomy CHOLECYSTECTOMY COLONOSCOPY FLX DX W/COLLJ SPEC WHEN PFRMD 08/2002 Colonoscopy COLONOSCOPY FLX DX W/COLLJ SPEC WHEN PFRMD 2010 Colonoscopy COLONOSCOPY SCREENING 07/07/2021 EGD W/O RUST SPEC VARICIES INJ 07/07/2021 ESOPHAGOGASTRODUODENOSCOPY TRANSORAL DIAGNOSTIC EGD ESOPHAGOGASTRODUODENOSCOPY TRANSORAL DIAGNOSTIC 08/2002 EGD ESOPHAGOGASTRODUODENOSCOPY TRANSORAL DIAGNOSTIC 04/14/2011 EGD EYE SURGERY HX KNEE LEFT OP SURGERY LUMPECTOMY/RADIOTHERAPY DIAG MAMM/A10 1980s bilat NEUROPLASTY &/TRANSPOS MEDIAN NRV CARPAL TUNNE both PAST SURGICAL HISTORY OF benign leg tumor PAST SURGICAL HISTORY OF multiple brest lumpectomy x3 benign both PAST SURGICAL HISTORY OF facial/mouth surgery PAST SURGICAL HISTORY OF dental surgery PAST SURGICAL HISTORY OF bladder/colon with fistula tumor benign PAST SURGICAL HISTORY OF benign tumor from right lower leg PAST SURGICAL HISTORY OF 04/27/2005 right shoulder scope and debridement SKIN BIOPSY HX TONSILLECTOMY HX TONSILLECTOMY PRIMARY/SECONDARY <AGE 12 chil Tonsillectomy TOTAL ABDOMINAL HYSTERECT W/WO RMVL TUBE OVARY Hysterectomy, SARAH + BSO in stages VAGINAL HYSTERECTOMY ALLERGIES Amlodipine, Biaxin [Clarithromycin], Metformin, Spironolactone, and Imvijdr-Foh-Csz Reductase Inhibitors MEDICATIONS alirocumab (PRALUENT PEN) 75 mg/mL pen Inject 1 mL subcutaneously every other week for 6 days. blood sugar diagnostic (BLOOD GLUCOSE TEST) test strip Test blood sugar(s) 1 times daily. Dx: Type 2 DM - Controlled E11.9 Insulin: No Blood Sugar Diagnostic, Drum (ACCU-CHEK COMPACT TEST) Strp TEST BLOOD SUGAR ONCE DAILY. 250.00 (Patient taking differently: TEST BLOOD SUGAR ONCE DAILY. 250.00 Takes once a month or so) blood-glucose meter, drum-type(ACCU-CHEK COMPACT PLUS CARE KIT) As directed Ca Carb-Mag b 11-D3-Zn Sulf [phone] ij-fqnc-ce-mg tab Take by mouth once daily. (Patient not taking: Reported on 02/24/2023) carvedilol (COREG) 3.125 mg tablet Take 4 tablets by mouth twice daily with meals. fluticasone (FLONASE) 50 mcg/actuation nasal spray USE 2 SPRAYS IN EACH NOSTRIL ONCE DAILY. RINSE MOUTH AFTER USE. hydroCHLOROthiazide (HYDRODIURIL, ESIDRIX) 25 mg tablet Take 1 tablet by mouth once daily. hydrocortisone 2.5 % cream abdomenal areas as needed ketoconazole (NIZORAL) 2 % cream Apply 1 application to affected area once daily. Apply to rash andsurrounding area (Patient taking differently: Apply 1 application to affected area once daily. Apply to rash and surrounding area Uses as needed) Lancets lancets Test blood sugar(s) 1 times daily. Dx: Type 2 DM - Controlled E11.9 Insulin: No losartan (COZAAR) 100 mg tablet Take 1 tablet by mouth once daily. pantoprazole DR (PROTONIX) 20 mg tablet potassium chloride SR (MICRO-K) 10 mEq CR capsule Take 1 capsule by mouth once daily. semaglutide (OZEMPIC) 1 mg/dose (4 mg/3 mL) pen Inject 1 mg subcutaneously one time a week. topiramate (TOPAMAX) 25 mg tablet take 1 tablet by mouth everyday at bedtime TREMFYA 100 mg/mL AutoInjector Inject 1 Dose subcutaneously as directed. Every other month FAMILY HISTORY Problem Relation Age of Onset Hypertension Mother Breast Cancer Mother Diabetes Father Heart Father Hypertension Father Hypertension Sister Hypertension Brother 3 brothers all with hypertension diabetes all have this Thyroid Daughter Hypertension Son Diabetes Son Cancer Daughter thyroid Diabetes Sister x 2 both have diabetes Cancer Brother All 3 Brothers Hypertension Other Several Family Member Social History Tobacco Use Smoking status: Never Smokeless tobacco: Never Vaping Use Vaping Use: Never used Substance Use Topics Alcohol use: Not Currently Drug use: Never PHYSICAL EXAM BP 114/60 Pulse 64 Resp 16 Wt 65.7 kg (144 lb 12.8 oz) SpO2 98% BMI 28.28 kg/m General Appearance: well appearing, in no acute distress, alert Pysch: mood and affect broad and appropriate Skin: Skin color, texture, turgor normal for age; Lungs: Lungs clear to auscultation. No wheezing, rhonchi, rales. Heart: RRR without murmur, gallop, or rubs. No ectopy Health maintenance reviewed with patient: Hepatitis B Vaccine(1 of 3 - Risk 3-dose series) Never done Advance Directive Discussion Never done Depression Assessment due on 05/15/2022 Urine Albumin:Creatinine Ratio due on 01/06/2023 Diabetic Foot Exam due on 01/06/2023 Influenza Vaccine(1) due on 11/12/2023 DTaP,Tdap,Td Vaccine(2 - Td or Tdap) due on 01/14/2024 Shingrix Vaccine(1 of 2) due on 01/14/2024 Covid-19 Vaccine( season) due on 01/14/2024 HbA1C due on 06/11/2023 LDL Cholesterol due on 12/10/2023 Dilated Retinal Exam due on 12/23/2023 Annual PCP Team Chronic Disease Visit due on 01/13/2024 BP Controlled (<130/80) due on 01/13/2024 Colorectal Cancer Screening due on 08/09/2027 Bone Density Screening Completed Hepatitis C Screening Completed Pneumococcal Vaccine: 65+ Completed Mammogram Screening Discontinued DATA REVIEWED: Most recent labs ASSESSMENT/PLAN: 1. Other chronic pain - ICD9: 338.29, ICD10: G89.29 (primary diagnosis) - starting cymbalta to see if this improves the pain, - follow up in 4 weeks 2. Anxiety and depression - ICD9: 300.00, 311, ICD10: F41.9, F32.A -depression uncontrolled, anxiety mild - stopping fluoxetine and starting on cymbalta - Reviewed concept of neurochemical imbalance wth depression/anxiety, treatment options and benefits of counseling in combination with medication. Also reviewed benefits of sleep hygeine, diet and exercise - Follow-up in 4 weeks or sooner as needed - Instructed patient to contact office or [id number] after-hours promptly should condition worsen or any new symptoms appear. - Counseling Center [facility] and after hours crisis line 3. Migraine with aura and without status migrainosus, not intractable - ICD9: 346.00, ICD10: G43.109 - not controlled but patient wanting to focus on her chronic pain at this time. Will re-evaluate atnext appointment. Prescription instructions reviewed with patient as applicable. Potential red flag symptoms discussed with the patient. Reviewed appropriate action plan to take if red flag symptoms occur. Patient agreeable to treatment plan. Deborah Fernandez APRN.CNP documented in this encounterSy[facility]-22-2023 Miscellaneous Notes* Telephone Encounter - Nella Arambula - 02/03/2023 2:55 PM EDT Patient has been identified by name and date of : No Patient phones for refill(s): Requested Prescriptions Pending Prescriptions Disp Refills fluticasone (FLONASE) 50 mcg/actuation nasal spray [Pharmacy Med Name: FLUTICASONE PROP 50 MCG SPRAY] 16 mL 3 Sig: USE 2 SPRAYS IN EACH NOSTRIL ONCE DAILY. RINSE MOUTH AFTER USE. topiramate (TOPAMAX) 25 mg tablet [Pharmacy Med Name: TOPIRAMATE 25 MG TABLET] 30 tablet 1 Sig: take 1 tablet by mouth everyday at bedtime Date of last office visit in primary care: 01/12/23 Last 2 Encounter Wt Readings: Date: Wt: 01/12/2023 65.8 kg (145 lb) 10/13/2022 68 kg (150 lb) Previous labs/tests for medication: Not applicable Please advise. Thank you. Nella Arambula documented in this encounterSy[facility]09-05-2023 Miscellaneous Notes* Telephone Encounter - Vikki Carrizales Ma - 01/17/2023 11:50 AM EDT Pt notified of results via [employer]. Vikki Carrizales Ma * Telephone Encounter - Karey Georges PA-C - 01/13/2023 10:20 PM EDT Please let patient know her Thyroid lab and b12 level is normal. Thanks! Karey Georges PA-C documented in this encounterSycam[facility] Center09-01-2023 Miscellaneous Notes* Telephone Encounter - Justine Constantino Ma - 01/13/2023 9:12 AM EDT Left message for return call. * Telephone Encounter - Deborah Fernandez APRN.WALL CRANE OPERATOR - 01/13/2023 9:01 AM EDT Please call patient and let her know I have been reviewing her chart and last cardiology note. At this appointment she denied any shortness of breath or chest pain. I was under the impression these symptoms have been occurring correction. Are these new? If so we need to evaluate this further since she is not seeing cardiology until late February. Thank you Deborah Fernandez APRN.CNP documented in this encounterSy[facility]08-31-2023 Instructions* Patient Instructions* Deborah Fernandez APRN.CNP - 01/12/2023 1:36 PM EDT Take Tammi daily and start Flonase nasal spray as ordered documented in this encounterSycamore [facility] Center08-31-2023 History of Present illness Narrative* Deborah Fernandez APRN.CNP - 01/12/2023 12:58 PM EDT flonaCC: Patient presents with: Recheck: 3 month follow up HPI Gabby Guillen is a 77 year old female who presents today for routine follow up but with headache concerns. Majority of appointment spent discussing headaches. Having an increase in headaches now occurring daily for the past few months. Pain is a steady ache to top of head and pressure. Takes 2 tylenol, 2 ibuprofen, and will lay down which resolves. Has to do this daily. With the headache she gets tired, sensitivity to light, sensitivity to sound, nausea,dizziness, and sometime will get a bright moonshape vision prior to pain starting. Has a history ofmigraines in her teens but can't remember what she took. Only med change was starting praluent in November. Denies vomitng, syncope, confusion, weakness or numbness. Has chronic sinus congestion without change and feels her ears are muffled. Takes tammi which sometimes helps but does not take often. Isn't sure if this may be attributing to headaches Denies fever, chills, cough, wheezing, or shortness of breath . Has increased heart burn with potassium so she does not take supplement often. Sees YAJAIRA Alanis Friend and recently changed to pantoprazole for her uncontrolled heart burn. Unsure if it is helping but willbe following back up with him. HTN/CAD : Ms. Guillne indicates that she is feeling well and denies any symptoms referable to elevated blood pressure. Patient denies any side effects of her medication(s) and is compliant with their regimen. She does check BP's away from this office with average BP's in the varies range. Has an upcoming appointmentth with cardiology and going to keep track of home readings. Gabby denies regular aerobic exercise. She watches her diet for sodium, low fat and low cholesterol most of the time. Last 3 Encounter BP Readings: Date: BP: 01/12/2023 120/72 10/13/2022 140/82 10/11/2022 122/60 Reports ongoing dyspnea and fatigue with exertion and has chest pain randomly. Pain is located to left chest and described as an ache. Is often noticed after eating and has had for a long time but more frequently over the last few months. Will sit and relax and resolves after about 5 min. Is following with cardiology for this and has another appointment next month. Denies pain with exertion, dizziness, nausea, cough, wheezing, or fever. DIABETES MELLITUS: Ms. Guillen denies excessive thirst or increased frequency of urination, numbness,tingling or pain in extremities, new or unusual visual symptoms, low sugar/hypoglycemic reactions, lightheadedness/dizziness, and bowel changes/loose stools. Follows a diabetic diet most of the time.She is compliant with medication(s) and is tolerating med(s) without any side effects. Has been on ozempic for the past year and a half and continues to lose weight. She reports checking her glucose on a infrequent to not at all basis schedule. Patient's last HgA1C was Hemoglobin A1C (%) Date Value 12/09/2022 5.1 10/05/2022 5.3 03/23/2021 6.2 12/21/2020 6.1 ) REVIEW OF SYSTEMS See HPI PAST MEDICAL HISTORY Diagnosis Date Adjustment disorder with depressed mood 03/17/2005 Arthritis Coronary artery disease Dyspareunia 03/17/2005 Esophageal reflux Gastroesophageal reflux Esophageal reflux Impaired fasting glucose 03/17/2005 Mixed hyperlipidemia Myalgia and myositis, unspecified Other and unspecified hyperlipidemia 03/17/2005 PMH - PAST MEDICAL HISTORY OF TIA's PMH - PAST MEDICAL HISTORY OF skin cancer Rheumatoid arthritis(714.0) Trace cataracts 2007 Uncontrolled type 2 diabetes mellitus with hyperglycemia (HCC) 04/01/2010 Unspecified asthma(493.90) 03/17/2005 Unspecified closed fracture of ankle Unspecified essential hypertension 03/17/2005 PAST SURGICAL HISTORY Procedure Laterality Date ABDOMINAL SURGERY HX ADENOIDECTOMY PRIMARY <AGE 12 child Adenoidectomy ADENOIDECTOMY SECONDARY AGE 12/> APPENDECTOMY age 30s incidental to [facility]AH APPENDECTOMY HX BIOPSY BREAST OPEN INCISIONAL Bx of breast, incisional x3 both BREAST SURGERY HX CHOLECYSTECTOMY Cholecystectomy CHOLECYSTECTOMY COLONOSCOPY FLX DX W/COLLJ SPEC WHEN PFRMD 08/2002 Colonoscopy COLONOSCOPY FLX DX W/COLLJ SPEC WHEN PFRMD 2010 Colonoscopy COLONOSCOPY SCREENING 07/07/2021 EGD W/O BRSH SPEC VARICIES INJ 07/07/2021 ESOPHAGOGASTRODUODENOSCOPY TRANSORAL DIAGNOSTIC EGD ESOPHAGOGASTRODUODENOSCOPY TRANSORAL DIAGNOSTIC 08/2002 EGD ESOPHAGOGASTRODUODENOSCOPY TRANSORAL DIAGNOSTIC 04/14/2011 EGD EYE SURGERY HX KNEE LEFT OP SURGERY LUMPECTOMY/RADIOTHERAPY DIAG MAMM/A10 1980s bilat NEUROPLASTY &/TRANSPOS MEDIAN NRV CARPAL TUNNE both PAST SURGICAL HISTORY OF benign leg tumor PAST SURGICAL HISTORY OF multiple brest lumpectomy x3 benign both PAST SURGICAL HISTORY OF facial/mouth surgery PAST SURGICAL HISTORY OF dental surgery PAST SURGICAL HISTORY OF bladder/colon with fistula tumor benign PAST SURGICAL HISTORY OF benign tumor from right lower leg PAST SURGICAL HISTORY OF 04/27/2005 right shoulder scope and debridement SKIN BIOPSY HX TONSILLECTOMY HX TONSILLECTOMY PRIMARY/SECONDARY <AGE 12 chil Tonsillectomy TOTAL ABDOMINAL HYSTERECT W/WO RMVL TUBE OVARY Hysterectomy, SARAH + BSO in stages VAGINAL HYSTERECTOMY ALLERGIES Amlodipine, Biaxin [Clarithromycin], Metformin, Spironolactone, and Ylhllkg-Tnp-Stl Reductase Inhibitors MEDICATIONS alirocumab (PRALUENT PEN) 75 mg/mL pen Inject 1 mL subcutaneously every other week for 6 days. semaglutide (OZEMPIC) 1 mg/dose (4 mg/3 mL) pen Inject 1 mg subcutaneously one time a week. potassium chloride SR (MICRO-K) 10 mEq CR capsule Take 1 capsule by mouth once daily. losartan (COZAAR) 100 mg tablet Take 1 tablet by mouth once daily. hydroCHLOROthiazide (HYDRODIURIL, ESIDRIX) 25 mg tablet Take 1 tablet by mouth once daily. carvedilol (COREG) 3.125 mg tablet Take 4 tablets by mouth twice daily with meals. omeprazole (PRILOSEC) 20 mg capsule Take 1 capsule by mouth every 12 hours. hydrocortisone 2.5 % cream abdomenal areas as needed TREMFYA 100 mg/mL AutoInjector Inject 1 Dose subcutaneously as directed. Every other month ketoconazole (NIZORAL) 2 % cream Apply 1 application to affected area once daily. Apply to rash andsurrounding area (Patient taking differently: Apply 1 application to affected area once daily. Apply to rash and surrounding area Uses as needed) Blood Sugar Diagnostic, Drum (ACCU-CHEK COMPACT TEST) Strp TEST BLOOD SUGAR ONCE DAILY. 250.00 (Patient taking differently: TEST BLOOD SUGAR ONCE DAILY. 250.00 Takes once a month or so) Lancets (ACCU-CHEK SOFTCLIX LANCETS) lancets TEST BLOOD SUGAR ONCE DAILY. 250.00 (Patient taking differently: TEST BLOOD SUGAR ONCE DAILY. 250.00 Takes once a month or so) aspirin 325 mg ORAL tablet Take 325 mg by mouth. Once a week Takes approximately once a month Ca Carb-Mag Cmb 11-D3-Zn Sulf [phone] dn-acoi-dd-mg tab Take by mouth once daily. blood-glucose meter, drum-type(ACCU-CHEK COMPACT PLUS CARE KIT) As directed FAMILY HISTORY Problem Relation Age of Onset Hypertension Mother Breast Cancer Mother Diabetes Father Heart Father Hypertension Father Hypertension Sister Hypertension Brother 3 brothers all with hypertension diabetes all have this Thyroid Daughter Hypertension Son Diabetes Son Cancer Daughter thyroid Diabetes Sister x 2 both have diabetes Cancer Brother All 3 Brothers Hypertension Other Several Family Member Social History Tobacco Use Smoking status: Never Smokeless tobacco: Never Vaping Use Vaping Use: Never used Substance Use Topics Alcohol use: Not Currently Drug use: Never PHYSICAL EXAM BP 120/72 Pulse 74 Resp 16 Wt 65.8 kg (145 lb) SpO2 98% BMI 28.32 kg/m General Appearance: well appearing, in no acute distress, alert Skin: Skin color, texture, turgor normal for age; Eyes: EOMs intact, PERRLA, conjunctiva pink and moist, no icterus, sclera white, non-injected Ears:External ears normal, canals clear Neck: Thyroid normal size and symmetric without palpable nodules, Neck supple, No adenopathy Lymph nodes: No cervical lymphadenopathy and No supraclavicular lymphadenopathy Lungs: Lungs clear to auscultation. No wheezing, rhonchi, rales. Heart: RRR without murmur, gallop, or rubs. No ectopy Neurological: Gait normal. Reflexes normal and symmetric. Sensation intact.,speech normal, mental status intact, muscle tone normal, muscle strength normal Health maintenance reviewed with patient: SHINGRIX VACCINE(1 of 2) Never done DTAP,TDAP,TD(2 - Td or Tdap) due on 01/05/2021 ADVANCE DIRECTIVE DISCUSSION Never done DEPRESSION ASSESSMENT due on 05/15/2022 COVID-19 VACCINE(5 - Pfizer series) due on 06/19/2022 URINE ALBUMIN:CREATININE RATIO due on 01/06/2023 DIABETIC FOOT EXAM due on 01/06/2023 INFLUENZA(1) due on 01/13/2023 HBA1C due on 06/11/2023 LDL CHOLESTEROL due on 12/10/2023 DILATED RETINAL EXAM due on 12/23/2023 ANNUAL PCP TEAM CHRONIC DISEASE VISIT due on 01/13/2024 BP CONTROLLED (<130/80) due on 01/13/2024 COLORECTAL CANCER SCREENING due on 08/09/2027 BONE DENSITY Completed HEPATITIS C SCREENING Completed PNEUMOCOCCAL: 65+ Completed MAMMOGRAM Discontinued DATA REVIEWED: Most recent labs ASSESSMENT/PLAN: 1. Acute nonintractable headache, unspecified headache type - ICD9: 784.0, ICD10: R51.9 (primary diagnosis) - by description migraine with aura. Will start on topiramate for prevention Follow up in 4-6 weeks - TOPIRAMATE 25 MG TABLET - TSH BLD - VITAMIN B12 BLOOD 2. Chest pain, unspecified type - ICD9: 786.50, ICD10: R07.9 Atypical chest pain, possible etiology include gastrointestinal cause as this mainly occurs after eating. During appointment was under impression this was ongoing and getting evaluated by cardiology. Afterappointment reviewed cardiology note from August and states patient denies shortness of breath or chest pain. Telephone encounter opened to further clarify this as if these are new we need to do an updated EKG and ECHO as she has known CAD and also with dyspnea and fatigue. 3. Dyspnea on exertion - ICD9: 786.09, ICD10: R06.09 As above Possibly from CAD or sinus congestion, or other etiology 4. Other fatigue - ICD9: 780.79, ICD10: R53.83 - see #2 - TSH BLD - VITAMIN B12 BLOOD 5. Chronic sinusitis, unspecified location - ICD9: 473.9, ICD10: J32.9 - flonase as ordered - start taking tammi daily - Supportive care with plenty of fluids, rest, and analgesia prn. - Follow up in one week if symptoms persist or worsen. 6. Coronary artery disease of [place] heart with stable angina pectoris, unspecified vessel or lesion type (HCC) - ICD9: 414.01, 413.9, ICD10: I25.118 See #2 - is symptomatic and needs clarification if this is a new symptom 7. Essential hypertension - ICD9: 401.9, ICD10: I10 - Controlled - Continue current medications - Recommend home blood pressure monitoring, to bring results to next visit - Encouraged sodium restriction, DASH or Mediterranean diet - Recommend regular aerobic exercise 8. Controlled type 2 diabetes mellitus without complication, without long-term current use of insulin (HCC) - ICD9: 250.00, ICD10: E11.9 - Controlled - Continue current medications - need to consider decreasing Ozempic to prevent hypoglycemia. Patient wanting to continue current dose,monitor home blood sugars and then if needed decrease the dose. - Blood glucose monitoring on a once daily schedule - Counseled on healthy diet and regular exercise - Discussed need for and benefit of weight loss. BMI 28.32 kg/(m^2) Prescription instructions reviewed with patient as applicable. Potential red flag symptoms discussed with the patient. Reviewed appropriate action plan to take if red flag symptoms occur. Patient agreeable to treatment plan. Deborah Fernandez APRN.CNP documented in this encounterSy[facility]07-20-2023 Miscellaneous Notes* Telephone Encounter - Keshawn Feng LPN - 12/01/2022 3:15 PM EDT Patient's request for medication is as follows: Requested Prescriptions Pending Prescriptions Disp Refills alirocumab (PRALUENT PEN) 75 mg/mL pen [Pharmacy Med Name: PRALUENT 75 MG/ML PEN] 6 Each 2 Sig: Inject 1 mL subcutaneously every other week for 6 days. Last seen 08/2022. Follow up scheduled for 02/2023. Prescription(s) as above. Please process accordingly. Keshawn Feng LPN documented in this encounterSy[facility] Center06-05-2023 Miscellaneous Notes* Telephone Encounter - Cathi Kohli RN - 10/17/2022 8:43 AM EDT Patient notified. Cathi Kohli RN * Telephone Encounter - Deisy Espinoza APRN.CNP - 10/17/2022 7:02 AM EDT Please let the pt know that her vaginal cultures are negative for infection. She can continue to use the cream and follow up if symptoms do not improve. Deisy Espinoza APRN.SASCHA documented in this encounterSycam[facility] Center06-01-2023 History of Present illness Narrative* Deisy Espinoza APRN.SASCHA - 10/13/2022 1:31 PM EDT Process Development Engineer offered: Patient declines. Gabby Guillen is a 77 year old female who presents for problem visit vaginal issue for several month(s). HPI: pt c/o vaginal pain/burning with some itching that has been going on for awhile. She denies any vaginal bleeding or discharge. OB History T0 L3 SAB1 IAB0 Ectopic0 Multiple0 Live Births0 Comment: has one step child Corporate Technical Recruiter History LMP: Hysterectomy Age at Menarche: Age at First : Age at Menopause: Corporate Technical Recruiter History Comments: Sexual Activity: Yes; Male Contraception: Surgical PAST MEDICAL HISTORY Diagnosis Date Adjustment disorder with depressed mood 03/17/2005 Arthritis Coronary artery disease Dyspareunia 03/17/2005 Esophageal reflux Gastroesophageal reflux Esophageal reflux Impaired fasting glucose 03/17/2005 Mixed hyperlipidemia Myalgia and myositis, unspecified Other and unspecified hyperlipidemia 03/17/2005 PMH - PAST MEDICAL HISTORY OF TIA's PMH - PAST MEDICAL HISTORY OF skin cancer Rheumatoid arthritis(714.0) Trace cataracts 2008 Uncontrolled type 2 diabetes mellitus with hyperglycemia (HCC) 04/01/2010 Unspecified asthma(493.90) 03/17/2005 Unspecified closed fracture of ankle Unspecified essential hypertension 03/17/2005 PAST SURGICAL HISTORY Procedure Laterality Date ABDOMINAL SURGERY HX ADENOIDECTOMY PRIMARY <AGE 12 child Adenoidectomy ADENOIDECTOMY SECONDARY AGE 12/> APPENDECTOMY age 30s incidental to SARAH APPENDECTOMY HX BIOPSY BREAST OPEN INCISIONAL Bx of breast, incisional x3 both BREAST SURGERY HX CHOLECYSTECTOMY Cholecystectomy CHOLECYSTECTOMY COLONOSCOPY FLX DX W/COLLJ SPEC WHEN PFRMD 08/2002 Colonoscopy COLONOSCOPY FLX DX W/COLLJ SPEC WHEN PFRMD 2010 Colonoscopy COLONOSCOPY SCREENING 07/07/2021 EGD W/O BRSH SPEC VARICIES INJ 07/07/2021 ESOPHAGOGASTRODUODENOSCOPY TRANSORAL DIAGNOSTIC EGD ESOPHAGOGASTRODUODENOSCOPY TRANSORAL DIAGNOSTIC 08/2002 EGD ESOPHAGOGASTRODUODENOSCOPY TRANSORAL DIAGNOSTIC 04/14/2011 EGD EYE SURGERY HX KNEE LEFT OP SURGERY LUMPECTOMY/RADIOTHERAPY DIAG MAMM/A10 1980s bilat NEUROPLASTY &/TRANSPOS MEDIAN NRV CARPAL TUNNE both PAST SURGICAL HISTORY OF benign leg tumor PAST SURGICAL HISTORY OF multiple brest lumpectomy x3 benign both PAST SURGICAL HISTORY OF facial/mouth surgery PAST SURGICAL HISTORY OF dental surgery PAST SURGICAL HISTORY OF bladder/colon with fistula tumor benign PAST SURGICAL HISTORY OF benign tumor from right lower leg PAST SURGICAL HISTORY OF 04/27/2005 right shoulder scope and debridement SKIN BIOPSY HX TONSILLECTOMY HX TONSILLECTOMY PRIMARY/SECONDARY <AGE 12 chil Tonsillectomy TOTAL ABDOMINAL HYSTERECT W/WO RMVL TUBE OVARY Hysterectomy, SARAH + BSO in stages VAGINAL HYSTERECTOMY FAMILY HISTORY Problem Relation Age of Onset Hypertension Mother Breast Cancer Mother Diabetes Father Heart Father Hypertension Father Hypertension Sister Hypertension Brother 3 brothers all with hypertension diabetes all have this Thyroid Daughter Hypertension Son Diabetes Son Cancer Daughter thyroid Diabetes Sister x 2 both have diabetes Cancer Brother All 3 Brothers Hypertension Other Several Family Member Social History Tobacco Use Smoking status: Never Smokeless tobacco: Never Vaping Use Vaping Use: Never used Substance Use Topics Alcohol use: Yes Comment: Occasionally Drug use: No Current Outpatient Medications Medication Sig alirocumab (PRALUENT PEN) 75 mg/mL pen Inject 1 mL subcutaneously every other week. REPATHA PUSHTRONEX 420 mg/3.5 mL 3.5 mL by INJECTION(UNSPECIFIED PARENTERAL ROUTES) route once every month. Once a month semaglutide (OZEMPIC) 1 mg/dose (4 mg/3 mL) pen Inject 1 mg subcutaneously one time a week. potassium chloride SR (MICRO-K) 10 mEq CR capsule Take 1 capsule by mouth once daily. losartan (COZAAR) 100 mg tablet Take 1 tablet by mouth once daily. hydroCHLOROthiazide (HYDRODIURIL, ESIDRIX) 25 mg tablet Take 1 tablet by mouth once daily. carvedilol (COREG) 3.125 mg tablet Take 4 tablets by mouth twice daily with meals. omeprazole (PRILOSEC) 20 mg capsule Take 1 capsule by mouth every 12 hours. hydrocortisone 2.5 % cream abdomenal areas as needed TREMFYA 100 mg/mL AutoInjector Inject 1 Dose subcutaneously as directed. Every other month ketoconazole (NIZORAL) 2 % cream Apply 1 application to affected area once daily. Apply to rash andsurrounding area (Patient taking differently: Apply 1 application to affected area once daily. Apply to rash and surrounding area Uses as needed) Blood Sugar Diagnostic, Drum (ACCU-CHEK COMPACT TEST) Strp TEST BLOOD SUGAR ONCE DAILY. 250.00 (Patient taking differently: TEST BLOOD SUGAR ONCE DAILY. 250.00 Takes once a month or so) Lancets (ACCU-CHEK SOFTCLIX LANCETS) lancets TEST BLOOD SUGAR ONCE DAILY. 250.00 (Patient taking differently: TEST BLOOD SUGAR ONCE DAILY. 250.00 Takes once a month or so) aspirin 325 mg ORAL tablet Take 325 mg by mouth. Once a week Takes approximately once a month Ca Carb-Mag b 11-D3-Zn Sulf [phone] xw-sqsp-oi-mg tab Take by mouth. blood-glucose meter, drum-type(ACCU-CHEK COMPACT PLUS CARE KIT) As directed No current facility-administered medications for this visit. Allergies As of Date: 10/13/2022 Allergen Noted Reaction AMLODIPINE 09/17/2020 Swelling BIAXIN [CLARITHROMYCIN] 08/27/2007 Rash METFORMIN 11/19/2009 Diarrhea SPIRONOLACTONE 10/11/2022 Other: See Comments OPYFONB-AAY-AJE REDUCTASE INHIBIT*08/08/2012 Intolerance Fully Assessed 10/11/2022 REVIEW OF SYSTEMS Abdomen: No bloating, early satiety, indigestion, or increased flatulence. No abdominal pain, nausea, vomiting, diarrhea, or constipation. Bladder: burning when urine hits skin. Expanded ROS: N/A Allergies and current medication updated:Yes EXAM: There were no vitals taken for this visit. GENERAL: pleasant, female in no apparent distress HEENT: Normocephalic, atraumatic, mucus membranes moist, and no lesions CHEST: Normal inspiratory effort PELVIC: external genitalia normal, normal Bartholin's glands, urethra, [place]'s glands, no vulvar lesions, physiologic discharge present, normal appearing perineal body and perianal region, cervix surgically absent, cervical prolapse 2nd degree, redness noted at the vaginal opening and to the labia minora BIMANUAL: no adnexal masses, non-tender, and uterus surgically absent NEURO: alert and oriented x3,exam grossly non-focal EXTREMITIES: normal ASSESSMENT/PLAN: 1. Vulvar irritation - ICD9: 624.8, ICD10: N90.89 (primary diagnosis) - DILCIA / TRICHOMONAS AMPLIFICATION - BACTERIAL VAGINOSIS AMPLIFICATION - CLOTRIMAZOLE-BETAMETHASONE 1 %-0.05 % TOPICAL CREAM 2. Vaginal pain - ICD9: 625.9, ICD10: R10.2 - DILCIA / TRICHOMONAS AMPLIFICATION - BACTERIAL VAGINOSIS AMPLIFICATION 3. Bladder prolapse, female, acquired - ICD9: 618.01, ICD10: N81.10 Will notify patient of test results. eDisy Espinoza APRN.CNP Medical Decision Making: Problems: Low: Acute, uncomplicated illness or injury Data: Unique test(s) ordered: 2 Risk: Low: Low risk from testing/treatment Moderate: Drug management Medical Decision Making Level: 3 - Low documented [facility] History of Present illness Narrative* Rodrigo Salas MD - 10/11/2022 1:52 PM EDT Reason for Visit Patient presents with: F/U HTN 3 Month: question about bp med and allergy issues needs meds Gabby Guillen is a 77 year old female who presents here today for Above Complaints.. Health Maintenance SHINGRIX VACCINE(1 of 2) DTAP,TDAP,TD(2 - Td or Tdap) ADVANCE DIRECTIVE DISCUSSION DEPRESSION ASSESSMENT HPI He has a past medical history of rheumatoid arthritis, psoriasis, fibromyalgia, GERD, hypertension,migraines , hyperlipidemia, diabetes type 2, obesity. HTN: BP controlled today. Checks BP at home. Compliant with medications. Denies any chest pain, palpitations, SOB, swelling in the feet. Careful with diet to avoid salt, trying to eat more fruits andvegetables, exercises regularly She is on losartan potassium and she is concerned with the potassium levels. Reviewed labs, her hba1c is 5.3. to cont the glp. Not on any other Diabetes Mellitus medication/ She has plateaued her wt loss and would like her to take medication to maintain the weight loss She is also on tremfya for arthritis and psoriasis No problem-specific Assessment & Plan notes found for this encounter. PAST MEDICAL HISTORY Diagnosis Date Adjustment disorder with depressed mood 03/17/2005 Arthritis Coronary artery disease Dyspareunia 03/17/2005 Esophageal reflux Gastroesophageal reflux Esophageal reflux Impaired fasting glucose 03/17/2005 Mixed hyperlipidemia Myalgia and myositis, unspecified Other and unspecified hyperlipidemia 03/17/2005 PMH - PAST MEDICAL HISTORY OF TIA's PMH - PAST MEDICAL HISTORY OF skin cancer Rheumatoid arthritis(714.0) Trace cataracts 2007 Uncontrolled type 2 diabetes mellitus with hyperglycemia (HCC) 04/01/2010 Unspecified asthma(493.90) 03/17/2005 Unspecified closed fracture of ankle Unspecified essential hypertension 03/17/2005 PAST SURGICAL HISTORY Procedure Laterality Date ABDOMINAL SURGERY HX ADENOIDECTOMY PRIMARY <AGE 12 child Adenoidectomy ADENOIDECTOMY SECONDARY AGE 12/> APPENDECTOMY age 30s incidental to SARAH APPENDECTOMY HX BIOPSY BREAST OPEN INCISIONAL Bx of breast, incisional x3 both BREAST SURGERY HX CHOLECYSTECTOMY Cholecystectomy CHOLECYSTECTOMY COLONOSCOPY FLX DX W/COLLJ SPEC WHEN PFRMD 08/2002 Colonoscopy COLONOSCOPY FLX DX W/COLLJ SPEC WHEN PFRMD 2010 Colonoscopy COLONOSCOPY SCREENING 07/07/2021 EGD W/O BRSH SPEC VARICIES INJ 07/07/2021 ESOPHAGOGASTRODUODENOSCOPY TRANSORAL DIAGNOSTIC EGD ESOPHAGOGASTRODUODENOSCOPY TRANSORAL DIAGNOSTIC 08/2002 EGD ESOPHAGOGASTRODUODENOSCOPY TRANSORAL DIAGNOSTIC 04/14/2011 EGD EYE SURGERY HX KNEE LEFT OP SURGERY LUMPECTOMY/RADIOTHERAPY DIAG MAMM/A10 1980s bilat NEUROPLASTY &/TRANSPOS MEDIAN NRV CARPAL TUNNE both PAST SURGICAL HISTORY OF benign leg tumor PAST SURGICAL HISTORY OF multiple brest lumpectomy x3 benign both PAST SURGICAL HISTORY OF facial/mouth surgery PAST SURGICAL HISTORY OF dental surgery PAST SURGICAL HISTORY OF bladder/colon with fistula tumor benign PAST SURGICAL HISTORY OF benign tumor from right lower leg PAST SURGICAL HISTORY OF 04/27/2005 right shoulder scope and debridement SKIN BIOPSY HX TONSILLECTOMY HX TONSILLECTOMY PRIMARY/SECONDARY <AGE 12 chil Tonsillectomy TOTAL ABDOMINAL HYSTERECT W/WO RMVL TUBE OVARY Hysterectomy, SARAH + BSO in stages VAGINAL HYSTERECTOMY FAMILY HISTORY Problem Relation Age of Onset Hypertension Mother Breast Cancer Mother Diabetes Father Heart Father Hypertension Father Hypertension Sister Hypertension Brother 3 brothers all with hypertension diabetes all have this Thyroid Daughter Hypertension Son Diabetes Son Cancer Daughter thyroid Diabetes Sister x 2 both have diabetes Cancer Brother All 3 Brothers Hypertension Other Several Family Member Social History Tobacco Use Smoking status: Never Smokeless tobacco: Never Vaping Use Vaping Use: Never used Substance Use Topics Alcohol use: Yes Comment: Occasionally Drug use: No Past medical history, appointments, medications, allergies reviewed. Pertinent Lab/Diagnostic Studies are reviewed and discussed today Current Outpatient Medications: alirocumab (PRALUENT PEN) 75 mg/mL pen REPATHA PUSHTRONEX 420 mg/3.5 mL spironolactone (ALDACTONE) 25 mg tablet semaglutide (OZEMPIC) 1 mg/dose (4 mg/3 mL) pen potassium chloride SR (MICRO-K) 10 mEq CR capsule losartan (COZAAR) 100 mg tablet hydroCHLOROthiazide (HYDRODIURIL, ESIDRIX) 25 mg tablet carvedilol (COREG) 3.125 mg tablet omeprazole (PRILOSEC) 20 mg capsule hydrocortisone 2.5 % cream TREMFYA 100 mg/mL AutoInjector ketoconazole (NIZORAL) 2 % cream Blood Sugar Diagnostic, Drum (ACCU-CHEK COMPACT TEST) Strp Lancets (ACCU-CHEK SOFTCLIX LANCETS) lancets aspirin 325 mg ORAL tablet Ca Carb-Mag Cmb 11-D3-Zn Sulf [phone] zk-njln-ty-mg tab blood-glucose meter, drum-type(ACCU-CHEK COMPACT PLUS CARE KIT) Review of Systems CONSTITUTIONAL: No fevers, chills night sweats, unintended weight loss CARDIOVASCULAR: No chest pain, dyspnea, palpitations, orthopnea, PND, ankle edema. PULM: No dyspnea, unexplained cough. GI: No dysphagia/odynophagia, problematic reflux, constipation, diarrhea, changes in stool habits, hematochezia, melena. : No new urinary complaints, including dysuria, gross hematuria or pyuria. NEURO: No new balance problems, peripheral weakness/paresthesias or numbness of concern. Physical Exam BP 122/60 (BP Site: Left Arm, BP Position: Sitting, BP Cuff Size: Large Adult) Pulse 68 Temp 36.7 C (98.1 F) Resp 12 Ht 152.4 cm (5') Wt 71.2 kg (157 lb) SpO2 96% BMI 30.66 kg/m General appearance: Well appearing, alert, in no acute distress, well nourished. Skin: Skin color, texture, turgor normal, no suspicious rashes or lesions Head: Normocephalic, no masses, lesions, tenderness or abnormalities Eyes: Anicteric sclera. Pupils are equally round and reactive to light. Extraocular movements are intact. Lungs: Lungs clear to auscultation. No wheezing, rhonchi, rales Heart: RRR without murmur, gallop, or rubs. Extremities: No deformities, edema, skin discoloration, clubbing or cyanosis. Good capillary refill. ASSESSMENT/PLAN: 1. Vaginal pain - ICD9: 625.9, ICD10: R10.2 (primary diagnosis) - CONSULT TO GYNECOLOGY 2. Bladder prolapse, female, acquired - ICD9: 618.01, ICD10: N81.10 - CONSULT TO GYNECOLOGY 3. Essential hypertension - ICD9: 401.9, ICD10: I10 - good control - Recommended regular aerobic exercise. - Recommend home blood pressure monitoring, to bring results in on next visit - Goal of BP <130/80 Rodrigo Salas MD documented [facility]-04-[facility]23 Miscellaneous Notes* Telephone Encounter - Alayna Balderas LPN - 09/15/2022 7:38 AM EDT Patient's request for medication is as follows: Requested Prescriptions Refused Prescriptions Disp Refills alirocumab (PRALUENT PEN) 150 mg/mL pen [Pharmacy Med Name: PRALUENT 150 MG/ML PEN] 0 Refused By: ALAYNA BALDERAS Reason for Refusal: A Refill not appropriate Patient was ordered Repatha on 09/13/2022. Prescription(s) as above. Please process accordingly. Alayna Balderas LPN documented in this encounterSy[facility]05-02-2023 Miscellaneous Notes* Telephone Encounter - Darlene Florian Ma - 09/13/2022 10:24 AM EDT Patient has been identified by name and date of : Yes Requested Prescriptions Pending Prescriptions Disp Refills REPATHA PUSHTRONEX 420 mg/3.5 mL 12 Each 0 Si.5 mL by INJECTION(UNSPECIFIED PARENTERAL ROUTES) route once every month. Once a month RX INSTRUCTIONS: Patient aware RX will be sent to pharmacy. No need to notify patient. Patient called in stating this medication was refilled at her last visit on 09/04/2022. She receiveda letter from insurance company telling her to have it filled at the local [facility] pharmacy. Please send a new Rx to [facility] in [place]. Darlene Florian Ma documented in this encounterSycam[facility]04-19-2023 History of Present illness Narrative* Nettie Almanza, RT(R) - 08/31/2022 9:00 AM EDT Radiology Service Progress Note PATIENT NAME: Gabby Guillen DATE OF SERVICE: August 31, 2022 TIME: 8:31 AM PATIENT IDENTITY VERIFICATION COMPLETED USING TWO (2) IDENTIFIERS: Name and Date of confirmedby patient verbally. FALL SCREENING: Has the patient had 2 falls in the last year or 1 fall with injury or currently using an Ambulatory Assistive Device (Walker, Cane, Wheelchair, Crutches, etc.)? No PATIENT GENDER DATA: Female. status: : No status: NO. PATIENT RELEVANT IMPLANT DATA REVIEWED: Not Applicable RADIOLOGY DEPARTMENT: Mammography PERIPHERAL IV DATA: Not applicable SIGNED BY: RT Shonda(R) August 31, 2022 8:31 AM documented in this encounterSy[facility]04-04-2023 Instructions* Patient Instructions* Miya Morales PA-C - 08/16/2022 10:28 AM EDT The following instructions are important for you related to your office visit today with the [facility] General Surgeons. INSTRUCTIONS FOLLOWING A POLYP FOUND AT COLONOSCOPY You were found to have an adenomatous colon polyp. I recommend you undergo repeat endoscopy in 5 years. If you note bleeding, change in bowel habits, or other suspicious colon related symptoms beforethat time, those symptoms should be evaluated as necessary. If you have any difficulties or concerns, you should contact our office immediately. If you note any additional difficulties, questions, or concerns, you should contact our office immediately @ [phone] and ask to be transferred to the General Surgery department. documented in this encounterSy[facility]04-04-2023 History of Present illness Narrative* Miya Morales PA-C - 08/16/2022 10:08 AM EDT FOLLOW UP VISIT - ENDOSCOPY NAME: Gabby Tanner [facility] NO.: [id number] DATE OF SERVICE: 08/16/2022 : 1945 REFERRING PHYSICIAN: Rodrigo Salas MD Gabby is a patient I am following with Dr. Moody for history of colon polyps and need for surveillance colonoscopy. Dr. Moody performed lower endoscopy on 08/08/22. Findings per operative report showed: Impression: - Non-bleeding internal hemorrhoids. - One 5 to 8 mm polyp in the rectum, removed with a cold snare. Resected and retrieved. Pathology demonstrated: FINAL DIAGNOSIS Rectum, polypectomy: - Fragments of tubular adenoma. The patient notes no complaints since the procedure. VITALS: Blood pressure 114/82, pulse 67, temperature (!) 35.9 C (96.7 F), SpO2 97 %. General: patient is alert, cooperative, pleasant and in no acute distress On examination, the abdomen is benign. Assessment IMPRESSION: s/p colonoscopy with polypectomy-tubular adenoma PLAN: The operative findings and pathology report were reviewed with the patient, and the patient has hadthe opportunity to ask questions and have questions answered. If the patient notes any problems or changes in bowel function, the patient should contact me immediately. Otherwise I recommend follow up endoscopy in 5 years. HM updated and recall letter generated. Patient verbalized understanding of all above and agreed with the plan Diagnoses: (Z86.010) History of colonic polyps (primary encounter diagnosis) (D36.9) Tubular adenoma I spent a total of 23 minutes on the date of the service which included preparing to see the patient, [id number] patient care, completing clinical documentation, obtaining and/or reviewing separately obtained history, counseling and educating the patient/family/caregiver, communicating with other HCPs (not separately reported), independently interpreting results (not separately reported), and communicating results to the patient/family/caregiver. Miya Morales PA-C documented in this encounterSycam[facility] Center03-28-2023 Miscellaneous Notes* Telephone Encounter - Alayna Balderas LPN - 08/09/2022 12:55 PM EDT Patient's request for medication is as follows: Requested Prescriptions Pending Prescriptions Disp Refills spironolactone (ALDACTONE) 25 mg tablet [Pharmacy Med Name: SPIRONOLACTONE 25 MG TABLET] 90 tablet 3 Sig: TAKE 1 TABLET BY MOUTH EVERY DAY Last seen 07/18/2022 in [place]. Follow up scheduled for 08/29/2022. Prescription(s) as above. Please process accordingly. Alayna Balderas LPN documented in this encounterSycam[facility] Center03-27-2023 Nurse Note* Cici Knight RN - 08/08/2022 1:20 PM EDT Patient arrived laying on left side. Patient states she is not having any pain at this time. Patient's abdomen appears to be soft and nondistended. documented in this encounterSy[facility]03-27-2023 History and physical note * Carmen Moody MD - 08/08/2022 12:45 PM EDT UPDATED PROCEDURAL SEDATION HISTORY AND PHYSICAL EXAMINATION SERVICE DATE: 08/08/2022 SERVICE TIME: 12:55 PHYSICAL EXAM MUST BE COMPLETED ON ADMISSION PROCEDURE: colonoscopy, possible biopsies Procedure Indications: screening for colon cancer The History and Physical (completed in the past 30 days) has been reviewed and the patient has beenexamined. The contents accurately reflect the patient's condition with the following additions or revisions since the H&P was completed. ASA Class: 2 Examination indicates no changes. Airway: clear Lungs: clear to auscultation Heart sounds normal Provisional Diagnosis/Treatment Plan: colonoscopy, possible biopsies This H&P can be found in the Electronic Medical Record. SIGNATURE: Carmen Moody MD PATIENT NAME: Gabby Guillen DATE: August 09, 2022 TIME: 10:01 AM Source Note - Carmen Moody MD - 08/08/2022 12:45 PM EDT Gabby Guillen 1945 REFERRING PHYSICIAN: Rodrigo Salas MD CHIEF COMPLAINT: Consult (Multiple skin nodules on bilateral breast ) HPI: The patient is a 77 year old female presents for repeat colonoscopy, given colonoscopy in 2021had poor colon cleansing preparation. PAST MEDICAL HISTORY Diagnosis Date Adjustment disorder with depressed mood 03/17/2005 Arthritis Dyspareunia 03/17/2005 Esophageal reflux Gastroesophageal reflux Esophageal reflux Impaired fasting glucose 03/17/2005 Mixed hyperlipidemia Myalgia and myositis, unspecified Other and unspecified hyperlipidemia 03/17/2005 PMH - PAST MEDICAL HISTORY OF TIA's PMH - PAST MEDICAL HISTORY OF skin cancer Rheumatoid arthritis(994.0) Trace cataracts 2007 Uncontrolled type 2 diabetes mellitus with hyperglycemia (HCC) 04/01/2010 Unspecified asthma(493.90) 03/17/2005 Unspecified closed fracture of ankle Unspecified essential hypertension 03/17/2005 PAST SURGICAL HISTORY Procedure Laterality Date ABDOMINAL SURGERY HX ADENOIDECTOMY PRIMARY <AGE 12 child Adenoidectomy ADENOIDECTOMY SECONDARY AGE 12/> APPENDECTOMY age 30s incidental to SARAH APPENDECTOMY HX BIOPSY BREAST OPEN INCISIONAL Bx of breast, incisional x3 both BREAST SURGERY HX CHOLECYSTECTOMY Cholecystectomy CHOLECYSTECTOMY COLONOSCOPY FLX DX W/COLLJ SPEC WHEN PFRMD 08/2002 Colonoscopy COLONOSCOPY FLX DX W/COLLJ SPEC WHEN PFRMD 2010 Colonoscopy COLONOSCOPY SCREENING 07/07/2021 EGD W/O BRSH SPEC VARICIES INJ 07/07/2021 ESOPHAGOGASTRODUODENOSCOPY TRANSORAL DIAGNOSTIC EGD ESOPHAGOGASTRODUODENOSCOPY TRANSORAL DIAGNOSTIC 08/2002 EGD ESOPHAGOGASTRODUODENOSCOPY TRANSORAL DIAGNOSTIC 04/14/2011 EGD EYE SURGERY HX KNEE LEFT OP SURGERY LUMPECTOMY/RADIOTHERAPY DIAG MAMM/A10 1980s bilat NEUROPLASTY &/TRANSPOS MEDIAN NRV CARPAL TUNNE both PAST SURGICAL HISTORY OF benign leg tumor PAST SURGICAL HISTORY OF multiple brest lumpectomy x3 benign both PAST SURGICAL HISTORY OF facial/mouth surgery PAST SURGICAL HISTORY OF dental surgery PAST SURGICAL HISTORY OF bladder/colon with fistula tumor benign PAST SURGICAL HISTORY OF benign tumor from right lower leg PAST SURGICAL HISTORY OF 04/27/2005 right shoulder scope and debridement SKIN BIOPSY HX TONSILLECTOMY HX TONSILLECTOMY PRIMARY/SECONDARY <AGE 12 chil Tonsillectomy TOTAL ABDOMINAL HYSTERECT W/WO RMVL TUBE OVARY Hysterectomy, SARAH + BSO in stages VAGINAL HYSTERECTOMY Current Outpatient Medications Medication Sig losartan (COZAAR) 100 mg tablet Take 1 tablet by mouth once daily. hydroCHLOROthiazide (HYDRODIURIL, ESIDRIX) 25 mg tablet Take 1 tablet by mouth once daily. omeprazole (PRILOSEC) 20 mg capsule Take 1 capsule by mouth every 12 hours. semaglutide (OZEMPIC) 1 mg/dose (4 mg/3 mL) pen Inject 1 mg subcutaneously one time a week. carvedilol (COREG) 3.125 mg tablet TAKE 4 TABLETS TWICE DAILY hydrocortisone 2.5 % cream abdomenal areas as needed REPATHA PUSHTRONEX 420 mg/3.5 mL 3.5 mL by INJECTION(UNSPECIFIED PARENTERAL ROUTES) route once every month. Once a month TREMFYA 100 mg/mL AutoInjector Inject 1 Dose subcutaneously as directed. Every other month potassium chloride SR (MICRO-K) 10 mEq CR capsule Take 1 capsule by mouth twice daily. (Patient taking differently: Take 10 mEq by mouth once daily.) ketoconazole (NIZORAL) 2 % cream Apply 1 application to affected area once daily. Apply to rash andsurrounding area Blood Sugar Diagnostic, Drum (ACCU-CHEK COMPACT TEST) Strp TEST BLOOD SUGAR ONCE DAILY. 250.00 Lancets (ACCU-CHEK SOFTCLIX LANCETS) lancets TEST BLOOD SUGAR ONCE DAILY. 250.00 aspirin 325 mg ORAL tablet Take 325 mg by mouth. Once a week Ca Carb-Mag Cmb 11-D3-Zn Sulf [phone] wr-yhzw-us-mg tab Take by mouth. blood-glucose meter, drum-type(ACCU-CHEK COMPACT PLUS CARE KIT) As directed ALLERGIES: Amlodipine, Biaxin [Clarithromycin], Metformin, and Hibeorc-Zol-Xpz Reductase Inhibitors PERSONAL HISTORY: Social History Tobacco Use Smoking status: Never Smokeless tobacco: Never Vaping Use Vaping Use: Never used Substance Use Topics Alcohol use: Yes Comment: Occasionally Drug use: No FAMILY HISTORY Problem Relation Age of Onset Hypertension Mother Breast Cancer Mother Diabetes Father Heart Father Hypertension Father Hypertension Sister Hypertension Brother 3 brothers all with hypertension diabetes all have this Thyroid Daughter Hypertension Son Diabetes Son Cancer Daughter thyroid Diabetes Sister x 2 both have diabetes Cancer Brother All 3 Brothers Hypertension Other Several Family Member REVIEW OF SYMPTOMS: The review of systems data was entered by the nurse and reviewed by me There are no exam notes on file for this visit. PHYSICAL EXAMINATION: General: The patient is 77 year old female, well nourished, well hydrated in no acute distress. Thepatient is oriented to time, place, and person. VITALS: Blood pressure 138/60, pulse 76, temperature 36.4 C (97.5 F), height 152.4 cm (5'), weight 71.2 kg (157 lb), SpO2 96 %. Body mass index is 30.66 kg/m . Head: Normal cephalic, atraumatic Eyes: pupils are equally round, sclera are clear/anicteric Neck is supple with no tracheal deviation Chest: bilateral upper chest (superior to breast parenchymal tissue) with palpable subcutaneous nodularity throughout, consistent with subcutaneous fat and due to dermal thinning, is prominent to palpation- none are larger than 2 cm Respiratory: Normal respiratory excursion and pattern. Abdominal exam: benign Extremities: no clubbing, cyanosis or edema. Neuro: non focal Psych: normal mood Impression: screening for colon cancer Discussion/Plan/Recommendations: I have discussed the above with the patient. I have offered colonoscopy, possible biopsies I have explained the procedure to the patient. I have counseled the patient as to the risks of the procedure, including but not limited to: infection, bleeding, injury to any intrabdominal organs such as liver/spleen, perforation of the GI tract,inability to complete the procedure, complications of anesthesia, etc. - the patient understands. The patient was offered a surgery/procedure at a [facility] facility. The provider and patient have discussed in detail the risk of exposure to and/or potential harm posed by the COVID-19 viruswith having a surgery/procedure at this time versus the risk of delaying the surgery/procedure. It is not possible to know either the risk of delaying the surgery or procedure or chance of getting aninfection with perfect accuracy, but a joint decision was made between the patient and the providerto proceed at this time with the scheduled surgery/procedure. The patient wishes to proceed. I have answered all questions to the patient s satisfaction and the patient has no further questions. Carmen Moody MD * Carmen Moody MD - 08/08/2022 12:45 PM EDT YvetteFlores Guillen 1945 REFERRING PHYSICIAN: Rodrigo Salas MD CHIEF COMPLAINT: Consult (Multiple skin nodules on bilateral breast ) HPI: The patient is a 77 year old female presents for repeat colonoscopy, given colonoscopy in 2021had poor colon cleansing preparation. PAST MEDICAL HISTORY Diagnosis Date Adjustment disorder with depressed mood 03/17/2005 Arthritis Dyspareunia 03/17/2005 Esophageal reflux Gastroesophageal reflux Esophageal reflux Impaired fasting glucose 03/17/2005 Mixed hyperlipidemia Myalgia and myositis, unspecified Other and unspecified hyperlipidemia 03/17/2005 PMH - PAST MEDICAL HISTORY OF TIA's PMH - PAST MEDICAL HISTORY OF skin cancer Rheumatoid arthritis(714.0) Trace cataracts 2007 Uncontrolled type 2 diabetes mellitus with hyperglycemia (HCC) 04/01/2010 Unspecified asthma(493.90) 03/17/2005 Unspecified closed fracture of ankle Unspecified essential hypertension 03/17/2005 PAST SURGICAL HISTORY Procedure Laterality Date ABDOMINAL SURGERY HX ADENOIDECTOMY PRIMARY <AGE 12 child Adenoidectomy ADENOIDECTOMY SECONDARY AGE 12/> APPENDECTOMY age 30s incidental to [facility] APPENDECTOMY HX BIOPSY BREAST OPEN INCISIONAL Bx of breast, incisional x3 both BREAST SURGERY HX CHOLECYSTECTOMY Cholecystectomy CHOLECYSTECTOMY COLONOSCOPY FLX DX W/COLLJ SPEC WHEN PFRMD 08/2002 Colonoscopy COLONOSCOPY FLX DX W/COLLJ SPEC WHEN PFRMD 2010 Colonoscopy COLONOSCOPY SCREENING 07/07/2021 EGD W/O BRSH SPEC VARICIES INJ 07/07/2021 ESOPHAGOGASTRODUODENOSCOPY TRANSORAL DIAGNOSTIC EGD ESOPHAGOGASTRODUODENOSCOPY TRANSORAL DIAGNOSTIC 08/2002 EGD ESOPHAGOGASTRODUODENOSCOPY TRANSORAL DIAGNOSTIC 04/14/2011 EGD EYE SURGERY HX KNEE LEFT OP SURGERY LUMPECTOMY/RADIOTHERAPY DIAG MAMM/A10 1980s bilat NEUROPLASTY &/TRANSPOS MEDIAN NRV CARPAL TUNNE both PAST SURGICAL HISTORY OF benign leg tumor PAST SURGICAL HISTORY OF multiple brest lumpectomy x3 benign both PAST SURGICAL HISTORY OF facial/mouth surgery PAST SURGICAL HISTORY OF dental surgery PAST SURGICAL HISTORY OF bladder/colon with fistula tumor benign PAST SURGICAL HISTORY OF benign tumor from right lower leg PAST SURGICAL HISTORY OF 04/27/2005 right shoulder scope and debridement SKIN BIOPSY HX TONSILLECTOMY HX TONSILLECTOMY PRIMARY/SECONDARY <AGE 12 chil Tonsillectomy TOTAL ABDOMINAL HYSTERECT W/WO RMVL TUBE OVARY Hysterectomy, SARAH + BSO in stages VAGINAL HYSTERECTOMY Current Outpatient Medications Medication Sig losartan (COZAAR) 100 mg tablet Take 1 tablet by mouth once daily. hydroCHLOROthiazide (HYDRODIURIL, ESIDRIX) 25 mg tablet Take 1 tablet by mouth once daily. omeprazole (PRILOSEC) 20 mg capsule Take 1 capsule by mouth every 12 hours. semaglutide (OZEMPIC) 1 mg/dose (4 mg/3 mL) pen Inject 1 mg subcutaneously one time a week. carvedilol (COREG) 3.125 mg tablet TAKE 4 TABLETS TWICE DAILY hydrocortisone 2.5 % cream abdomenal areas as needed REPATHA PUSHTRONEX 420 mg/3.5 mL 3.5 mL by INJECTION(UNSPECIFIED PARENTERAL ROUTES) route once every month. Once a month TREMFYA 100 mg/mL AutoInjector Inject 1 Dose subcutaneously as directed. Every other month potassium chloride SR (MICRO-K) 10 mEq CR capsule Take 1 capsule by mouth twice daily. (Patient taking differently: Take 10 mEq by mouth once daily.) ketoconazole (NIZORAL) 2 % cream Apply 1 application to affected area once daily. Apply to rash andsurrounding area Blood Sugar Diagnostic, Drum (ACCU-CHEK COMPACT TEST) Strp TEST BLOOD SUGAR ONCE DAILY. 250.00 Lancets (ACCU-CHEK SOFTCLIX LANCETS) lancets TEST BLOOD SUGAR ONCE DAILY. 250.00 aspirin 325 mg ORAL tablet Take 325 mg by mouth. Once a week Ca Carb-Mag Cmb 11-D3-Zn Sulf [phone] al-hzos-dp-mg tab Take by mouth. blood-glucose meter, drum-type(ACCU-CHEK COMPACT PLUS CARE KIT) As directed ALLERGIES: Amlodipine, Biaxin [Clarithromycin], Metformin, and Jzqvnzf-Gpd-Qrx Reductase Inhibitors PERSONAL HISTORY: Social History Tobacco Use Smoking status: Never Smokeless tobacco: Never Vaping Use Vaping Use: Never used Substance Use Topics Alcohol use: Yes Comment: Occasionally Drug use: No FAMILY HISTORY Problem Relation Age of Onset Hypertension Mother Breast Cancer Mother Diabetes Father Heart Father Hypertension Father Hypertension Sister Hypertension Brother 3 brothers all with hypertension diabetes all have this Thyroid Daughter Hypertension Son Diabetes Son Cancer Daughter thyroid Diabetes Sister x 2 both have diabetes Cancer Brother All 3 Brothers Hypertension Other Several Family Member REVIEW OF SYMPTOMS: The review of systems data was entered by the nurse and reviewed by me There are no exam notes on file for this visit. PHYSICAL EXAMINATION: General: The patient is 77 year old female, well nourished, well hydrated in no acute distress. Thepatient is oriented to time, place, and person. VITALS: Blood pressure 138/60, pulse 76, temperature 36.4 C (97.5 F), height 152.4 cm (5'), weight 71.2 kg (157 lb), SpO2 96 %. Body mass index is 30.66 kg/m . Head: Normal cephalic, atraumatic Eyes: pupils are equally round, sclera are clear/anicteric Neck is supple with no tracheal deviation Chest: bilateral upper chest (superior to breast parenchymal tissue) with palpable subcutaneous nodularity throughout, consistent with subcutaneous fat and due to dermal thinning, is prominent to palpation- none are larger than 2 cm Respiratory: Normal respiratory excursion and pattern. Abdominal exam: benign Extremities: no clubbing, cyanosis or edema. Neuro: non focal Psych: normal mood Impression: screening for colon cancer Discussion/Plan/Recommendations: I have discussed the above with the patient. I have offered colonoscopy, possible biopsies I have explained the procedure to the patient. I have counseled the patient as to the risks of the procedure, including but not limited to: infection, bleeding, injury to any intrabdominal organs such as liver/spleen, perforation of the GI tract,inability to complete the procedure, complications of anesthesia, etc. - the patient understands. The patient was offered a surgery/procedure at a [facility] facility. The provider and patient have discussed in detail the risk of exposure to and/or potential harm posed by the COVID-19 viruswith having a surgery/procedure at this time versus the risk of delaying the surgery/procedure. It is not possible to know either the risk of delaying the surgery or procedure or chance of getting aninfection with perfect accuracy, but a joint decision was made between the patient and the providerto proceed at this time with the scheduled surgery/procedure. The patient wishes to proceed. I have answered all questions to the patient s satisfaction and the patient has no further questions. Carmen Moody MD documented in this encounterSy[facility]03-16-2023 Miscellaneous Notes* Telephone Encounter - Justine Constantino Ma - 07/28/2022 9:13 AM EDT Patient notified, Ozempic was sent to wrong pharmacy, please send to updated pharmacy. * Telephone Encounter - Rodrigo Salas MD - 07/27/2022 8:04 PM EDT please let me know that mammogram requires more testing because something was seen not clear about.She will need to have ultrasound and diagnostic mammogram which is ordered Please help her with scheduling Thank you Regards, Rodrigo Salas MD * Telephone Encounter - Marvel Sharif Ma - 07/27/2022 11:31 AM EDT Please document patient instruction and will call with results. documented in this encounterSy[facility]03-08-2023 History of Present illness Narrative* Patience Desir RT(R) - 07/20/2022 11:10 AM EST Radiology Service Progress Note PATIENT NAME: Gabby Guillen DATE OF SERVICE: July 20, 2022 TIME: 11:04 AM PATIENT IDENTITY VERIFICATION COMPLETED USING TWO (2) IDENTIFIERS: Name and Date of confirmedby patient verbally. FALL SCREENING: Has the patient had 2 falls in the last year or 1 fall with injury or currently using an Ambulatory Assistive Device (Walker, Cane, Wheelchair, Crutches, etc.)? No PATIENT GENDER DATA: Female. status: : No status: NO. PATIENT RELEVANT IMPLANT DATA REVIEWED: Not Applicable RADIOLOGY DEPARTMENT: Mammography PERIPHERAL IV DATA: Not applicable SIGNED BY: RT Richy(R) July 20, 2022 11:04 AM documented in this encounterSycam[facility]03-06-2023 History of Present illness Narrative* Reinaldo Choi MD - 07/18/2022 9:53 AM EST Images from the original note were not included. Reinaldo Choi MD Interventional Cardiology [facility] [address], [place] [address] [phone] Chief Complaint Patient presents with: Follow Up HISTORY OF PRESENT ILLNESS: Ms. Guillen is a 77 year old female seen in my office for assessment and management patient have prior history of hypertensive heart disease with moderate diffuse coronary artery disease she comes in for follow-up Continued having general weakness fatigue exertional chest pain and angina despite being on medicaltherapy blood pressure is poorly controlled today her blood pressure is 184/90 Blood pressure log shows marked fluctuation of her blood pressure numbers Cardiac Risk Factors age (male over 45, female over 55), hyperlipidemia, diabetes, hypertension, family history of CAD PAST MEDICAL HISTORY Diagnosis Date Adjustment disorder with depressed mood 03/17/2005 Arthritis Dyspareunia 03/17/2005 Esophageal reflux Gastroesophageal reflux Esophageal reflux Impaired fasting glucose 03/17/2005 Mixed hyperlipidemia Myalgia and myositis, unspecified Other and unspecified hyperlipidemia 03/17/2005 PMH - PAST MEDICAL HISTORY OF TIA's PMH - PAST MEDICAL HISTORY OF skin cancer Rheumatoid arthritis(714.0) Trace cataracts 2007 Uncontrolled type 2 diabetes mellitus with hyperglycemia (HCC) 04/01/2010 Unspecified asthma(493.90) 03/17/2005 Unspecified closed fracture of ankle Unspecified essential hypertension 03/17/2005 PAST SURGICAL HISTORY Procedure Laterality Date ABDOMINAL SURGERY HX ADENOIDECTOMY PRIMARY <AGE 12 child Adenoidectomy ADENOIDECTOMY SECONDARY AGE 12/> APPENDECTOMY age 30s incidental to [facility]AH APPENDECTOMY HX BIOPSY BREAST OPEN INCISIONAL Bx of breast, incisional x3 both BREAST SURGERY HX CHOLECYSTECTOMY Cholecystectomy CHOLECYSTECTOMY COLONOSCOPY FLX DX W/COLLJ SPEC WHEN PFRMD 08/2002 Colonoscopy COLONOSCOPY FLX DX W/COLLJ SPEC WHEN PFRMD 2010 Colonoscopy COLONOSCOPY SCREENING 07/07/2021 EGD W/O BRSH SPEC VARICIES INJ 07/07/2021 ESOPHAGOGASTRODUODENOSCOPY TRANSORAL DIAGNOSTIC EGD ESOPHAGOGASTRODUODENOSCOPY TRANSORAL DIAGNOSTIC 08/2002 EGD ESOPHAGOGASTRODUODENOSCOPY TRANSORAL DIAGNOSTIC 04/14/2011 EGD EYE SURGERY HX KNEE LEFT OP SURGERY LUMPECTOMY/RADIOTHERAPY DIAG MAMM/A10 1980s bilat NEUROPLASTY &/TRANSPOS MEDIAN NRV CARPAL TUNNE both PAST SURGICAL HISTORY OF benign leg tumor PAST SURGICAL HISTORY OF multiple brest lumpectomy x3 benign both PAST SURGICAL HISTORY OF facial/mouth surgery PAST SURGICAL HISTORY OF dental surgery PAST SURGICAL HISTORY OF bladder/colon with fistula tumor benign PAST SURGICAL HISTORY OF benign tumor from right lower leg PAST SURGICAL HISTORY OF 04/27/2005 right shoulder scope and debridement SKIN BIOPSY HX TONSILLECTOMY HX TONSILLECTOMY PRIMARY/SECONDARY <AGE 12 chil Tonsillectomy TOTAL ABDOMINAL HYSTERECT W/WO RMVL TUBE OVARY Hysterectomy, SARAH + BSO in stages VAGINAL HYSTERECTOMY FAMILY HISTORY Problem Relation Age of Onset Hypertension Mother Breast Cancer Mother Diabetes Father Heart Father Hypertension Father Hypertension Sister Hypertension Brother 3 brothers all with hypertension diabetes all have this Thyroid Daughter Hypertension Son Diabetes Son Cancer Daughter thyroid Diabetes Sister x 2 both have diabetes Cancer Brother All 3 Brothers Hypertension Other Several Family Member Social History Tobacco Use Smoking status: Never Smokeless tobacco: Never Vaping Use Vaping Use: Never used Substance Use Topics Alcohol use: Yes Comment: Occasionally Drug use: No ALLERGIES Allergen Reactions Amlodipine Swelling Biaxin [Clarithromy* Rash Metformin Diarrhea ER formulation caused symptoms at 1 tablet per day Rgmttqq-Svc-Oiz Red* Intolerance myalgia and diarrhea Medications: Current Outpatient Medications Medication Sig Dispense Refill omeprazole (PRILOSEC) 20 mg capsule Take 1 capsule by mouth every 12 hours. 180 capsule 3 semaglutide (OZEMPIC) 1 mg/dose (4 mg/3 mL) pen Inject 1 mg subcutaneously one time a week. 4 Each 3 hydrocortisone 2.5 % cream abdomenal areas as needed 60 g 6 REPATHA PUSHTRONEX 420 mg/3.5 mL 3.5 mL by INJECTION(UNSPECIFIED PARENTERAL ROUTES) route once every month. Once a month 12 Each 0 TREMFYA 100 mg/mL AutoInjector Inject 1 Dose subcutaneously as directed. Every other month potassium chloride SR (MICRO-K) 10 mEq CR capsule Take 1 capsule by mouth twice daily. (Patient taking differently: Take 10 mEq by mouth once daily.) 180 capsule 3 ketoconazole (NIZORAL) 2 % cream Apply 1 application to affected area once daily. Apply to rash andsurrounding area (Patient taking differently: Apply 1 application to affected area once daily. Apply to rash and surrounding area Uses as needed) 30 g 5 Blood Sugar Diagnostic, Drum (ACCU-CHEK COMPACT TEST) Strp TEST BLOOD SUGAR ONCE DAILY. 250.00 (Patient taking differently: TEST BLOOD SUGAR ONCE DAILY. 250.00 Takes once a month or so) 51 Strip 11 Lancets (ACCU-CHEK SOFTCLIX LANCETS) lancets TEST BLOOD SUGAR ONCE DAILY. 250.00 (Patient taking differently: TEST BLOOD SUGAR ONCE DAILY. 250.00 Takes once a month or so) 100 Each 11 aspirin 325 mg ORAL tablet Take 325 mg by mouth. Once a week Takes approximately once a month 0 blood-glucose meter, drum-type(ACCU-CHEK COMPACT PLUS CARE KIT) As directed 1 0 spironolactone (ALDACTONE) 25 mg tablet Take 1 tablet by mouth once daily. 30 tablet 0 losartan (COZAAR) 100 mg tablet Take 1 tablet by mouth once daily. 90 tablet 3 hydroCHLOROthiazide (HYDRODIURIL, ESIDRIX) 25 mg tablet Take 1 tablet by mouth once daily. 90 tablet 3 carvedilol (COREG) 3.125 mg tablet Take 4 tablets by mouth twice daily with meals. 720 tablet 3 Ca Carb-Mag Cmb 11-D3-Zn Sulf [phone] qb-uapn-pq-mg tab Take by mouth. (Patient not taking: Reported on 07/18/2022) 0 No current facility-administered medications for this visit. Review of Systems Constitutional: Negative for chills, diaphoresis, fever, malaise/fatigue and weight loss. HENT: Negative for congestion, ear discharge, ear pain, hearing loss, nosebleeds, sinus pain, sore throat and tinnitus. Eyes: Negative for blurred vision, double vision, photophobia, pain, discharge and redness. Respiratory: Positive for shortness of breath. Negative for cough, hemoptysis, sputum production, wheezing and stridor. Cardiovascular: Positive for chest pain. Negative for palpitations, orthopnea, claudication, leg swelling and PND. Gastrointestinal: Negative for abdominal pain, blood in stool, constipation, diarrhea, heartburn, melena, nausea and vomiting. Genitourinary: Negative for dysuria, flank pain, frequency, hematuria and urgency. Musculoskeletal: Negative for back pain, falls, joint pain, myalgias and neck pain. Skin: Negative for itching and rash. Neurological: Negative for dizziness, tingling, tremors, sensory change, speech change, focal weakness, seizures, loss of consciousness, weakness and headaches. Endo/Heme/Allergies: Negative for environmental allergies and polydipsia. Does not bruise/bleed easily. Psychiatric/Behavioral: Negative for depression, hallucinations, memory loss, substance abuse and suicidal ideas. The patient is not nervous/anxious and does not have insomnia. Physical Examination: Vitals:BP 184/90[Dr. Choi notified- patient took medications today at 0745[ Pulse 68 Resp 14 Ht 5' 0 (1.52m) Wt 156 lb (70.8kg) SpO2 96% BMI 30.47 kg/(m^2). BP w/Orthostatic Vitals Date and Time Orthostatic BP Orthostatic Pulse BP Pulse BP Position BP Site BP Cuff Size 07/18/22922 -- -- 184/90 68 Sitting Right Arm Regular Adult Peak Flow Date and Time PF Resp 07/18/22922 -- 14 Last 2 Encounter Wt Readings: Date: Wt: 07/18/2022 70.8 kg (156 lb) 07/12/2022 71.2 kg (157 lb) Physical Exam Constitutional: General: She is not in acute distress. Appearance: She is not diaphoretic. HENT: Head: Normocephalic and atraumatic. Right Ear: External ear normal. Left Ear: External ear normal. Nose: Nose normal. Mouth/Throat: Pharynx: Oropharynx is clear. Eyes: General: Right eye: No discharge. Left eye: No discharge. Conjunctiva/sclera: Conjunctivae normal. Pupils: Pupils are equal, round, and reactive to light. Cardiovascular: Rate and Rhythm: Normal rate and regular rhythm. Heart sounds: Normal heart sounds, S1 normal and S2 normal. No murmur heard. No friction rub. No gallop. No S3 or S4 sounds. Pulmonary: Effort: Pulmonary effort is normal. No respiratory distress. Breath sounds: Normal breath sounds. No wheezing or rales. Chest: Chest wall: No tenderness. Musculoskeletal: General: Normal range of motion. Cervical back: Normal range of motion and neck supple. Skin: General: Skin is warm and dry. Neurological: Mental Status: She is alert and oriented to person, place, and time. Psychiatric: Mood and Affect: Mood normal. Thought Content: Thought content normal. Judgment: Judgment normal. Pertinent Labs: CBC: Hemoglobin (g/dL) Date Value 07/08/2022 13.7 03/23/2021 13.7 Hematocrit (%) Date Value 07/08/2022 42.0 03/23/2021 41.6 WBC (k/uL) Date Value 07/08/2022 6.87 03/23/2021 6.57 Platelet Count (k/uL) Date Value 07/08/2022 317 03/23/2021 286 BMP: Glucose (mg/dL) Date Value 07/08/2022 87 03/23/2021 124 Potassium (mmol/L) Date Value 07/08/2022 4.2 03/23/2021 4.0 Sodium (mmol/L) Date Value 07/08/2022 140 03/23/2021 137 Chloride (mmol/L) Date Value 07/08/2022 105 03/23/2021 97 CO2 (mmol/L) Date Value 07/08/2022 30 03/23/2021 29 Creatinine (mg/dL) Date Value 07/08/2022 0.94 03/23/2021 0.92 BUN (mg/dL) Date Value 07/08/2022 14 03/23/2021 18 Anion Gap (mmol/L) Date Value 07/08/2022 5 03/23/2021 11 Calcium (mg/dL) Date Value 03/23/2021 9.8 Calcium, Total (mg/dL) Date Value 07/08/2022 9.7 INR: Lipid Profile: Cholesterol, Total Date Value Ref Range Status 07/08/2022 167 <200 mg/dL Final Comment: <200 mg/dL, Desirable 200-239 mg/dL, Borderline high >239 mg/dL, High HDL Cholesterol Date Value Ref Range Status 07/08/2022 50 >39 mg/dL Final Comment: 40-59 mg/dL, Acceptable >59 mg/dL, High: Negative risk factor for coronary heart disease <40 mg/dL, Low: Positive risk factor for coronary heart disease LDL Cholesterol Date Value Ref Range Status 07/08/2022 92 <100 mg/dL Final Comment: <100 mg/dL, Optimal 100-129 mg/dL, Near optimal/above optimal 130-159 mg/dL, Borderline high 160-189 mg/dL, High >189 mg/dL, Very high Secondary prevention optimal LDL Cholesterol levels are recommended to be < 70 mg/dL Triglyceride Date Value Ref Range Status 07/08/2022 127 <150 mg/dL Final Comment: <150 mg/dL, Normal 150-199 mg/dL, Borderline high 200-499 mg/dL, High >499 mg/dL, Very high Hemoglobin A1C: No results found for: HGBA1C TSH: No results found for: TSHREFL Prior Cardiac Testing EKG Assessment and Plan: 77 years old with prior history of coronary artery disease Poorly controlled hypertension We will add Aldactone to her regimen Patient will keep a track of her blood pressures log at home We will check her kidney function 2 weeks to assess the potassium level 2. Coronary artery disease with exertional dyspnea and angina Stable disease we need blood pressure control Assess symptoms once we achieve blood pressure control Follow up plannin WEEKS FOLLOW UP Electronically signed by Reinaldo Choi MD on July 18, 2022, 9:53 AM The above note was partially created using a dictation recognition software. A reasonable attempt has been made to correct any errors. documented in this encounterSycam[facility] Center03-06-2023 Miscellaneous Notes* Telephone Encounter - Deborah Fernandez APRN.CNP - 07/18/2022 8:50 AM EST Was just ordered by Dr. Salas a week ago. Did she need a different medication? Thank you Deborah Fernandez APRN.CNP * Telephone Encounter - Erin Waggoner - 07/16/2022 11:07 AM EST Patient has been identified by name and date of : Yes, Provider Date 07-16-22 Time 11:10 am Last office visit in this department: 07/11/2022 RX INSTRUCTIONS: Patient aware RX will be sent to pharmacy. No need to notify patient. Patient phones requesting refills as follows: Requested Prescriptions Pending Prescriptions Disp Refills semaglutide (OZEMPIC) 1 mg/dose (4 mg/3 mL) pen 4 Each 3 Sig: Inject 1 mg subcutaneously one time a week. Please review and advise. Erin Waggoner documented in this encounterSycamore Medical Center02-28-2023 History of Present illness Narrative* Carmen Moody MD - 07/12/2022 6:30 PM EST Gabby Guillen 1945 REFERRING PHYSICIAN: Rodrigo Salas MD CHIEF COMPLAINT: Consult (Multiple skin nodules on bilateral breast ) HPI: The patient is a 77 year old female presents with subcutaneous nodules of bilateral upper chest wall. She has noted these for several weeks. She denies pain at these sites. She has lost weight recently, about 40#. She has been ordered for bilateral screening mammograms for which she has yet to complete. Last mammograms in 2020 revealed no suspicious lesions. PAST MEDICAL HISTORY Diagnosis Date Adjustment disorder with depressed mood 03/17/2005 Arthritis Dyspareunia 03/17/2005 Esophageal reflux Gastroesophageal reflux Esophageal reflux Impaired fasting glucose 03/17/2005 Mixed hyperlipidemia Myalgia and myositis, unspecified Other and unspecified hyperlipidemia 03/17/2005 PMH - PAST MEDICAL HISTORY OF TIA's PMH - PAST MEDICAL HISTORY OF skin cancer Rheumatoid arthritis(714.0) Trace cataracts 2007 Uncontrolled type 2 diabetes mellitus with hyperglycemia (HCC) 04/01/2010 Unspecified asthma(493.90) 03/17/2005 Unspecified closed fracture of ankle Unspecified essential hypertension 03/17/2005 PAST SURGICAL HISTORY Procedure Laterality Date ABDOMINAL SURGERY HX ADENOIDECTOMY PRIMARY <AGE 12 child Adenoidectomy ADENOIDECTOMY SECONDARY AGE 12/> APPENDECTOMY age 30s incidental to [facility] APPENDECTOMY HX BIOPSY BREAST OPEN INCISIONAL Bx of breast, incisional x3 both BREAST SURGERY HX CHOLECYSTECTOMY Cholecystectomy CHOLECYSTECTOMY COLONOSCOPY FLX DX W/COLLJ SPEC WHEN PFRMD 08/2002 Colonoscopy COLONOSCOPY FLX DX W/COLLJ SPEC WHEN PFRMD 2010 Colonoscopy COLONOSCOPY SCREENING 07/07/2021 EGD W/O BRSH SPEC VARICIES INJ 07/07/2021 ESOPHAGOGASTRODUODENOSCOPY TRANSORAL DIAGNOSTIC EGD ESOPHAGOGASTRODUODENOSCOPY TRANSORAL DIAGNOSTIC 08/2002 EGD ESOPHAGOGASTRODUODENOSCOPY TRANSORAL DIAGNOSTIC 04/14/2011 EGD EYE SURGERY HX KNEE LEFT OP SURGERY LUMPECTOMY/RADIOTHERAPY DIAG MAMM/A10 1980s bilat NEUROPLASTY &/TRANSPOS MEDIAN NRV CARPAL TUNNE both PAST SURGICAL HISTORY OF benign leg tumor PAST SURGICAL HISTORY OF multiple brest lumpectomy x3 benign both PAST SURGICAL HISTORY OF facial/mouth surgery PAST SURGICAL HISTORY OF dental surgery PAST SURGICAL HISTORY OF bladder/colon with fistula tumor benign PAST SURGICAL HISTORY OF benign tumor from right lower leg PAST SURGICAL HISTORY OF 04/27/2005 right shoulder scope and debridement SKIN BIOPSY HX TONSILLECTOMY HX TONSILLECTOMY PRIMARY/SECONDARY <AGE 12 chil Tonsillectomy TOTAL ABDOMINAL HYSTERECT W/WO RMVL TUBE OVARY Hysterectomy, SARAH + BSO in stages VAGINAL HYSTERECTOMY Current Outpatient Medications Medication Sig losartan (COZAAR) 100 mg tablet Take 1 tablet by mouth once daily. hydroCHLOROthiazide (HYDRODIURIL, ESIDRIX) 25 mg tablet Take 1 tablet by mouth once daily. omeprazole (PRILOSEC) 20 mg capsule Take 1 capsule by mouth every 12 hours. semaglutide (OZEMPIC) 1 mg/dose (4 mg/3 mL) pen Inject 1 mg subcutaneously one time a week. carvedilol (COREG) 3.125 mg tablet TAKE 4 TABLETS TWICE DAILY hydrocortisone 2.5 % cream abdomenal areas as needed REPATHA PUSHTRONEX 420 mg/3.5 mL 3.5 mL by INJECTION(UNSPECIFIED PARENTERAL ROUTES) route once every month. Once a month TREMFYA 100 mg/mL AutoInjector Inject 1 Dose subcutaneously as directed. Every other month potassium chloride SR (MICRO-K) 10 mEq CR capsule Take 1 capsule by mouth twice daily. (Patient taking differently: Take 10 mEq by mouth once daily.) ketoconazole (NIZORAL) 2 % cream Apply 1 application to affected area once daily. Apply to rash andsurrounding area Blood Sugar Diagnostic, Drum (ACCU-CHEK COMPACT TEST) Strp TEST BLOOD SUGAR ONCE DAILY. 250.00 Lancets (ACCU-CHEK SOFTCLIX LANCETS) lancets TEST BLOOD SUGAR ONCE DAILY. 250.00 aspirin 325 mg ORAL tablet Take 325 mg by mouth. Once a week Ca Carb-Mag Cmb 11-D3-Zn Sulf [id number] rl-ahou-mz-mg tab Take by mouth. blood-glucose meter, drum-type(ACCU-CHEK COMPACT PLUS CARE KIT) As directed ALLERGIES: Amlodipine, Biaxin [Clarithromycin], Metformin, and Sjsuugl-Ngp-Qnj Reductase Inhibitors PERSONAL HISTORY: Social History Tobacco Use Smoking status: Never Smokeless tobacco: Never Vaping Use Vaping Use: Never used Substance Use Topics Alcohol use: Yes Comment: Occasionally Drug use: No FAMILY HISTORY Problem Relation Age of Onset Hypertension Mother Breast Cancer Mother Diabetes Father Heart Father Hypertension Father Hypertension Sister Hypertension Brother 3 brothers all with hypertension diabetes all have this Thyroid Daughter Hypertension Son Diabetes Son Cancer Daughter thyroid Diabetes Sister x 2 both have diabetes Cancer Brother All 3 Brothers Hypertension Other Several Family Member REVIEW OF SYMPTOMS: The review of systems data was entered by the nurse and reviewed by me There are no exam notes on file for this visit. PHYSICAL EXAMINATION: General: The patient is 77 year old female, well nourished, well hydrated in no acute distress. Thepatient is oriented to time, place, and person. VITALS: Blood pressure 138/60, pulse 76, temperature 36.4 C (97.5 F), height 152.4 cm (5'), weight 71.2 kg (157 lb), SpO2 96 %. Body mass index is 30.66 kg/m . Head: Normal cephalic, atraumatic Eyes: pupils are equally round, sclera are clear/anicteric Neck is supple with no tracheal deviation Chest: bilateral upper chest (superior to breast parenchymal tissue) with palpable subcutaneous nodularity throughout, consistent with subcutaneous fat and due to dermal thinning, is prominent to palpation- none are larger than 2 cm Respiratory: Normal respiratory excursion and pattern. Abdominal exam: benign Extremities: no clubbing, cyanosis or edema. Neuro: non focal Psych: normal mood Assessment IMPRESSION: subcutaneous fatty tissue/dermal thinning/weight loss PLAN: I have discussed the above with the patient and her who is present with her. I suspect that these are benign lesions (subcutaneous fatty deposits), there are many and distributed evenly throughout and most likely subcutaneous localized fatty deposits. Patient has dermal thinning and notes weight loss of 40#, thus these are more prominent to palpation I have offered chest CT for better delineation, the patient defers this. I have recommended that patient continue observation, if any worsening signs/symptoms, patient is to return to clinic. The patient acknowledges above. I have answered all questions to the patient s satisfaction and the patient has no further questions. I have confirmed and edited as necessary, the PFSH and ROS obtained by others. Consultation requested by Dr. Rodrigo Salas for an opinion regarding patient's multiple skin nodules. My final recommendations will be communicated back to the requesting physician by way of shared Medical record or letter to requesting physician via [place] mail. . Diagnoses: (R22.9) Multiple skin nodules Return to Clinic: The patient is instructed to follow-up in the clinic as above. I spent a total of 31 minutes on the date of the service which included preparing to see the patient with review of any pertinent laboratory studies/radiological imaging/medical records, owwl-yg-cpursndsmyt care, obtaining oral medical history from the patient in this encounter, performing a medically appropriate examination, counseling and educating the patient/family/caregiver, and completing appropriate medical documentation. Carmen Moody MD documented [facility] this [facility] History of Present illness Narrative* Rodrigo Salas MD - 07/11/2022 12:30 PM EST Reason for Visit Patient presents with: Follow Up Gabby Guillen is a 77 year old female who presents here today for Above Complaints.. Health Maintenance BP CONTROLLED (<130/80) SHINGRIX VACCINE(1 of 2) DTAP,TDAP,TD(2 - Td or Tdap) ADVANCE DIRECTIVE DISCUSSION DEPRESSION ASSESSMENT COLORECTAL CANCER SCREENING HPI He has a past medical history of rheumatoid arthritis, psoriasis, fibromyalgia, GERD, hypertension,migraines , hyperlipidemia, diabetes type 2, obesity. Gabby had routine EGDs as surveillance for her chronic GERD. She was due for 1 this year and so she had it done in June and was found to have esophageal varices. She was then referred to Dr. Carlin who admitted her and performed an EGD and colonoscopy Dr. Carlin's EGD revealed that patient has grade 1 mid esophageal varices- He noted that the duodenum 1 and 2 parts were normal, antrum was biopsied as she had z line irregularities. She has fatty liver with out any spleenomegaly per our ultrasound reports. She had elastography done which, showed moderate to severe fibrosis a few months ago and now it is more mild to moderate. On prilosec for reflux, they are not sure why she has so much acid secretion and has an appointmentcoming up on Monday with Dr Carlin. She has an appointment with Dr friend coming up HTN: Compliant with medications. Denies any chest pain, palpitations, or edema. No SOB. Doesn't check BP at home generally. Careful with diet to avoid salt, trying to eat more fruits and vegetables, exercises regularly. Patient has been on the repatha injections for 3 years, once a month. There was difficulty getting ozempic last visit. She took last done on Monday last week. She has been on weight loss trend with the medication No problem-specific Assessment & Plan notes found for this encounter. PAST MEDICAL HISTORY Diagnosis Date Adjustment disorder with depressed mood 03/17/2005 Arthritis Dyspareunia 03/17/2005 Esophageal reflux Gastroesophageal reflux Esophageal reflux Impaired fasting glucose 03/17/2005 Mixed hyperlipidemia Myalgia and myositis, unspecified Other and unspecified hyperlipidemia 03/17/2005 PMH - PAST MEDICAL HISTORY OF TIA's PMH - PAST MEDICAL HISTORY OF skin cancer Rheumatoid arthritis(714.0) Trace cataracts 2007 Uncontrolled type 2 diabetes mellitus with hyperglycemia (HCC) 04/01/2010 Unspecified asthma(493.90) 03/17/2005 Unspecified closed fracture of ankle Unspecified essential hypertension 03/17/2005 PAST SURGICAL HISTORY Procedure Laterality Date ABDOMINAL SURGERY HX ADENOIDECTOMY PRIMARY <AGE 12 child Adenoidectomy ADENOIDECTOMY SECONDARY AGE 12/> APPENDECTOMY age 30s incidental to SARAH APPENDECTOMY HX BIOPSY BREAST OPEN INCISIONAL Bx of breast, incisional x3 both BREAST SURGERY HX CHOLECYSTECTOMY Cholecystectomy CHOLECYSTECTOMY COLONOSCOPY FLX DX W/COLLJ SPEC WHEN PFRMD 08/2002 Colonoscopy COLONOSCOPY FLX DX W/COLLJ SPEC WHEN PFRMD 2010 Colonoscopy COLONOSCOPY SCREENING 07/07/2021 EGD W/O RUST SPEC VARICIES INJ 07/07/2021 ESOPHAGOGASTRODUODENOSCOPY TRANSORAL DIAGNOSTIC EGD ESOPHAGOGASTRODUODENOSCOPY TRANSORAL DIAGNOSTIC 08/2002 EGD ESOPHAGOGASTRODUODENOSCOPY TRANSORAL DIAGNOSTIC 04/14/2011 EGD EYE SURGERY HX KNEE LEFT OP SURGERY LUMPECTOMY/RADIOTHERAPY DIAG MAMM/A10 1980s bilat NEUROPLASTY &/TRANSPOS MEDIAN NRV CARPAL TUNNE both PAST SURGICAL HISTORY OF benign leg tumor PAST SURGICAL HISTORY OF multiple brest lumpectomy x3 benign both PAST SURGICAL HISTORY OF facial/mouth surgery PAST SURGICAL HISTORY OF dental surgery PAST SURGICAL HISTORY OF bladder/colon with fistula tumor benign PAST SURGICAL HISTORY OF benign tumor from right lower leg PAST SURGICAL HISTORY OF 04/27/2005 right shoulder scope and debridement SKIN BIOPSY HX TONSILLECTOMY HX TONSILLECTOMY PRIMARY/SECONDARY <AGE 12 chil Tonsillectomy TOTAL ABDOMINAL HYSTERECT W/WO RMVL TUBE OVARY Hysterectomy, SARAH + BSO in stages VAGINAL HYSTERECTOMY FAMILY HISTORY Problem Relation Age of Onset Hypertension Mother Breast Cancer Mother Diabetes Father Heart Father Hypertension Father Hypertension Sister Hypertension Brother 3 brothers all with hypertension diabetes all have this Thyroid Daughter Hypertension Son Diabetes Son Cancer Daughter thyroid Diabetes Sister x 2 both have diabetes Cancer Brother All 3 Brothers Hypertension Other Several Family Member Social History Tobacco Use Smoking status: Never Smokeless tobacco: Never Vaping Use Vaping Use: Never used Substance Use Topics Alcohol use: Yes Comment: Occasionally Drug use: No Past medical history, appointments, medications, allergies reviewed. Pertinent Lab/Diagnostic Studies are reviewed and discussed today Current Outpatient Medications: peg 3350-Electrolytes (GOLYTELY) 236-22.74-6.74 -5.86 gram suspension carvedilol (COREG) 3.125 mg tablet semaglutide (OZEMPIC) 1 mg/dose (4 mg/3 mL) pen losartan (COZAAR) 100 mg tablet hydrocortisone 2.5 % cream REPATHA PUSHTRONEX 420 mg/3.5 mL TREMFYA 100 mg/mL AutoInjector potassium chloride SR (MICRO-K) 10 mEq CR capsule omeprazole (PRILOSEC) 20 mg capsule hydroCHLOROthiazide (HYDRODIURIL, ESIDRIX) 25 mg tablet ketoconazole (NIZORAL) 2 % cream Blood Sugar Diagnostic, Drum (ACCU-CHEK COMPACT TEST) Strp Lancets (ACCU-CHEK SOFTCLIX LANCETS) lancets aspirin 325 mg ORAL tablet Ca Carb-Mag Cmb 11-D3-Zn Sulf [phone] od-qazj-if-mg tab blood-glucose meter, drum-type(ACCU-CHEK COMPACT PLUS CARE KIT) Review of Systems CONSTITUTIONAL: No fevers, chills night sweats, unintended weight loss CARDIOVASCULAR: No chest pain, dyspnea, palpitations, orthopnea, PND, ankle edema. PULM: No dyspnea, unexplained cough. GI: No dysphagia/odynophagia, problematic reflux, constipation, diarrhea, changes in stool habits, hematochezia, melena. : No new urinary complaints, including dysuria, gross hematuria or pyuria. NEURO: No new balance problems, peripheral weakness/paresthesias or numbness of concern. Physical Exam BP 134/86 Pulse 66 Resp 16 Wt 71.2 kg (157 lb) SpO2 95% BMI 30.66 kg/m General appearance: Well appearing, alert, in no acute distress, well nourished. Skin: Under her clavicle the patient has multiple tiny nodules under the skin. The extending from the clavicle right up to the breast area. Head: Normocephalic, no masses, lesions, tenderness or abnormalities Eyes: Anicteric sclera. Pupils are equally round and reactive to light. Extraocular movements are intact. Lungs: Lungs clear to auscultation. No wheezing, rhonchi, rales Heart: RRR without murmur, gallop, or rubs. Extremities: No deformities, edema, skin discoloration, clubbing or cyanosis. Good capillary refill. ASSESSMENT/PLAN: 1. Breast cancer screening by mammogram - ICD9: V76.12, ICD10: Z12.31 (primary diagnosis) - Completed pelvic and breast exam - Encouraged monthly BSE - Follow up for annual exam in one year. - PEALR SCREENING 2. Essential hypertension - ICD9: 401.9, ICD10: I10 - good control - Recommended regular aerobic exercise. - Recommend home blood pressure monitoring, to bring results in on next visit - Goal of BP <130/80 3. Controlled type 2 diabetes mellitus without complication, without long-term current use of insulin (HCC) - ICD9: 250.00, ICD10: E11.9 - Controlled - Continue current medications - OZEMPIC 1 MG/DOSE (4 MG/3 ML) SUBCUTANEOUS PEN INJECTOR 4. Multiple skin nodules - ICD9: 782.2, ICD10: R22.9 - CONSULT TO GENERAL SURGERY 5. Idiopathic esophageal varices without bleeding (HCC) - ICD9: 456.1, ICD10: I85.00 See hpi 6. Coronary artery disease of [place] heart with stable angina pectoris, unspecified vessel or lesion type (HCC) - ICD9: 414.01, 413.9, ICD10: I25.118 7. Arthropathic psoriasis, unspecified (HCC) - ICD9: 696.0, ICD10: L40.50 Rodrigo Salas MD documented in this encounter[facility]01-[facility]23 Instructions* Patient Instructions* Liudmila Norris - 05/23/2022 10:51 AM EST Diabetes Foot Care Instructions When you have diabetes, proper foot care is very important. Poor foot care may lead to amputation of a foot or leg. As a person with diabetes, you are more vulnerable to foot problems, because diabetes can damage your nerves and reduce blood flow to your feet. Here are some diabetes foot care tips to follow: Wash and Dry Your Feet Daily Use mild soaps Use warm water Pat your skin dry; do not rub. Thoroughly dry your feet. After washing, use lotion on your feet to prevent cracking. Do not put lotion between your toes. Examine Your Feet Each Day Check the tops and bottoms of your feet. Have someone else look at your feet if you cannot see them. Check for dry, cracked skin. Look for blisters, cuts, scratches, or other sores. Check for redness, increased warmth, or tenderness when touching any area of your feet. Check for ingrown toenails, corns, and calluses. If you get a blister or sore from your shoes, do not pop it. Apply a bandage and wear a differentpair of shoes. Take Care of Your Toenails Cut toenails after bathing, when they are soft. Cut toenails straight across and smooth with a nail file. Avoid cutting into the corners of toes. Do not cut cuticles. If you have neuropathy (or decreased sensation in your feet) a clock and watch hands dipper should always cut your toenails. Be Careful When Exercising Walk and exercise in comfortable shoes. Do not exercise when you have open sores on your feet. Protect Your Feet With Shoes and Socks Never go barefoot. Always protect your feet by wearing shoes or hard-soled slippers or footwear. Avoid shoes with high heels and pointed toes. Avoid shoes that expose your toes or heels (such as open-toed shoes or sandals). These types of shoes increase your risk for injury and potential infections. Try on new footwear with the type of socks you usually wear. Do not wear new shoes for more than an hour at a time. Change your socks daily. Look and feel inside your shoes before putting them on to make sure there are no foreign objects orrough areas. Avoid tight socks. Wear natural-fiber socks (cotton, wool, or a cotton-wool blend). Wear special shoes if your health care provider recommends them. Wear shoes/boots that will protect your feet from various weather conditions (cold, moisture, etc.). Make sure your shoes fit properly. If you have neuropathy (nerve damage), you may not notice that your shoes are too tight. Perform the footwear test described below. Footwear Test Use this simple test to see if your shoes fit correctly: Stand on a piece of paper. (Make sure you are standing and not sitting, because your foot changes shape when you stand.) Trace the outline of your foot. Trace the outline of your shoe. Compare the tracings: Is the shoe too narrow? Is your foot crammed into the shoe? The shoe should be at least 1/2 inch longer than your longest toe and as wide as your foot. Proper Shoe Choices The following types of shoes are best for people with diabetes Closed toes and heels Leather uppers without a seam inside At least 1/2 inch extra space at the end of your longest toe Inside of shoe should be soft with no rough areas Outer sole should be made of stiff material Shoes should be at least as wide as your feet Tips for Foot Care in Diabetes Don't wait to treat a minor foot problem if you have diabetes. Follow your health care provider's guidelines and first aid guidelines. Report foot injuries and infections to your health care provider immediately. Check water temperature with your elbow, not your foot. Do not use a heating pad on your feet. Do not cross your legs. Do not self-treat your corns, calluses, or other foot problems. Go to your health care provider or clock and watch hands dipper to treat these conditions. documented in this encounterSy[facility]01-[facility]23 History of Present illness Narrative* Liudmila Norris - 05/23/2022 10:47 AM EST Subjective: This 76 year old female presents to clinic for diabetic foot check. Patient has the following complaints: b/l ankle pain. Patient admits to being diabetic for multiple years now . Patient+B/T/N in feet at this time. Patient - pain in legs when walking. No other pedal complaints at this time. No change in medications or medical history since last visit. PAIN EVALUATION No data found in the last 1 encounters. Hemoglobin A1C (%) Date Value 12/13/2021 5.6 09/06/2021 5.8 03/23/2021 6.2 12/21/2020 6.1 09/14/2020 6.2 05/27/2020 6.4 08/08/2012 5.7 PCP: Rodrigo Salas MD PAST MEDICAL HISTORY Diagnosis Date Adjustment disorder with depressed mood 03/17/2005 Arthritis Dyspareunia 03/17/2005 Esophageal reflux Gastroesophageal reflux Esophageal reflux Impaired fasting glucose 03/17/2005 Mixed hyperlipidemia Myalgia and myositis, unspecified Other and unspecified hyperlipidemia 03/17/2005 PMH - PAST MEDICAL HISTORY OF TIA's PMH - PAST MEDICAL HISTORY OF skin cancer Rheumatoid arthritis(714.0) Trace cataracts 2007 Uncontrolled type 2 diabetes mellitus with hyperglycemia (HCC) 04/01/2010 Unspecified asthma(493.90) 03/17/2005 Unspecified closed fracture of ankle Unspecified essential hypertension 03/17/2005 Current Outpatient Medications Medication Sig carvedilol (COREG) 3.125 mg tablet TAKE 4 TABLETS TWICE DAILY semaglutide (OZEMPIC) 1 mg/dose (4 mg/3 mL) pen Inject 1 mg subcutaneously one time a week. losartan (COZAAR) 100 mg tablet Take 1 tablet by mouth once daily. hydrocortisone 2.5 % cream abdomenal areas as needed REPATHA PUSHTRONEX 420 mg/3.5 mL 3.5 mL by INJECTION(UNSPECIFIED PARENTERAL ROUTES) route once every month. Once a month CPAP AutoPAP with humidification set at range of 5-15 cmH2O. Needs mask fit. Lifetime supplies. fluconazole (DIFLUCAN) 150 mg tablet TAKE ONE(1) TABLET BY MOUTH WHEN FILLED THEN AGAIN IN 3DAYS IFSTILL SYMPTOMATIC TREMFYA 100 mg/mL AutoInjector Inject 1 Dose subcutaneously as directed. Every other month potassium chloride SR (MICRO-K) 10 mEq CR capsule Take 1 capsule by mouth twice daily. (Patient taking differently: Take 10 mEq by mouth once daily.) omeprazole (PRILOSEC) 20 mg capsule Take 1 capsule by mouth every 12 hours. hydroCHLOROthiazide (HYDRODIURIL, ESIDRIX) 25 mg tablet Take 1 tablet by mouth once daily. ketoconazole (NIZORAL) 2 % cream Apply 1 application to affected area once daily. Apply to rash andsurrounding area cholecalciferol, Vitamin D3, 50,000 unit cap capsule Take 1 capsule by mouth one time a week. Blood Sugar Diagnostic, Drum (ACCU-CHEK COMPACT TEST) Strp TEST BLOOD SUGAR ONCE DAILY. 250.00 Lancets (ACCU-CHEK SOFTCLIX LANCETS) lancets TEST BLOOD SUGAR ONCE DAILY. 250.00 aspirin 325 mg ORAL tablet Take 1 tablet by mouth once daily. Ca Carb-Mag Cmb 11-D3-Zn Sulf [phone] cq-ivnl-ye-mg tab Take by mouth. blood-glucose meter, drum-type(ACCU-CHEK COMPACT PLUS CARE KIT) As directed No current facility-administered medications for this visit. ALLERGIES Allergen Reactions Amlodipine Swelling Biaxin [Clarithromy* Rash Metformin Diarrhea ER formulation caused symptoms at 1 tablet per day Jnsklyj-Woh-Nux Red* Intolerance myalgia and diarrhea PAST SURGICAL HISTORY Procedure Laterality Date ABDOMINAL SURGERY HX ADENOIDECTOMY PRIMARY <AGE 12 child Adenoidectomy ADENOIDECTOMY SECONDARY AGE 12/> APPENDECTOMY age 30s incidental to [facility] APPENDECTOMY HX BIOPSY BREAST OPEN INCISIONAL Bx of breast, incisional x3 both BREAST SURGERY HX CHOLECYSTECTOMY Cholecystectomy CHOLECYSTECTOMY COLONOSCOPY FLX DX W/COLLJ SPEC WHEN PFRMD 08/2002 Colonoscopy COLONOSCOPY FLX DX W/COLLJ SPEC WHEN PFRMD 2010 Colonoscopy COLONOSCOPY SCREENING 07/07/2021 EGD W/O BRSH SPEC VARICIES INJ 07/07/2021 ESOPHAGOGASTRODUODENOSCOPY TRANSORAL DIAGNOSTIC EGD ESOPHAGOGASTRODUODENOSCOPY TRANSORAL DIAGNOSTIC 08/2002 EGD ESOPHAGOGASTRODUODENOSCOPY TRANSORAL DIAGNOSTIC 04/14/2011 EGD EYE SURGERY HX KNEE LEFT OP SURGERY LUMPECTOMY/RADIOTHERAPY DIAG MAMM/A10 1980s bilat NEUROPLASTY &/TRANSPOS MEDIAN NRV CARPAL TUNNE both PAST SURGICAL HISTORY OF benign leg tumor PAST SURGICAL HISTORY OF multiple brest lumpectomy x3 benign both PAST SURGICAL HISTORY OF facial/mouth surgery PAST SURGICAL HISTORY OF dental surgery PAST SURGICAL HISTORY OF bladder/colon with fistula tumor benign PAST SURGICAL HISTORY OF benign tumor from right lower leg PAST SURGICAL HISTORY OF 04/27/2005 right shoulder scope and debridement SKIN BIOPSY HX TONSILLECTOMY HX TONSILLECTOMY PRIMARY/SECONDARY <AGE 12 chil Tonsillectomy TOTAL ABDOMINAL HYSTERECT W/WO RMVL TUBE OVARY Hysterectomy, SARAH + BSO in stages VAGINAL HYSTERECTOMY FAMILY HISTORY Problem Relation Age of Onset Hypertension Mother Breast Cancer Mother Diabetes Father Heart Father Hypertension Father Hypertension Sister Hypertension Brother 3 brothers all with hypertension diabetes all have this Thyroid Daughter Hypertension Son Diabetes Son Cancer Daughter thyroid Diabetes Sister x 2 both have diabetes Cancer Brother All 3 Brothers Hypertension Other Several Family Member Social History Tobacco Use Smoking status: Never Smokeless tobacco: Never Vaping Use Vaping Use: Never used Substance Use Topics Alcohol use: Yes Comment: Occasionally Drug use: No REVIEW OF SYSTEMS GENERAL: Negative for Malaise, significant weight loss, fever RESPIRATORY: Negative for cough, wheezing and shortness of breath CARDIOVASCULAR: Negative for chest pain, leg swelling and palpitations GI: Negative for abdominal discomfort, blood in stools or black stools and change in bowel habits : Negative for dysuria, frequency and incontinence MUSCULOSKELETAL: Negative for joint pain or swelling, back pain, and muscle pain. SKIN: Negative for lesions, rash, and itching. HEMATOLOGY/LYMPHOLOGY Negative for prolonged bleeding, bruising easily, and swollen nodes. ENDOCRINE: Negative for cold or heat intolerance, polyuria, polydipsia and goiter. NEURO: negative The remainder of the review of systems is noncontributory. Objective: Patient presents to clinic ambulating in diabetic shoes Constitutional: Pt is a well developed 76 year old female who is alert, oriented, cooperative and in no apparent distress. Eyes: Following during examination. No redness or drainage. Respiratory: RR normal and nonlabored. Even breathing. No evidence of distress. Psychology: Patient is engaged during conversation. Normal affect and mood. Does not appear depressed or anxious. Vasc: DP and PT pulses are decreased bilateral. CFT is less than 5 seconds bilateral. Skin temperature is warm to warm proximal to distal bilateral. There is mild edema or varicosities noted. Hair growth present. Neuro: Protective sensation is intact to the foot and toes when tested with the 5.07 SWM bilateral.Vibratory sensation is decreased at the hallux bilateral. + Significant neurological defecits. Derm: Inspection and palpation performed. Nails 1-5 b/l are normal in length and thickness. Skin isof normal turgor and texture. Hyperkeratosis noted to not present. NO ulcerations, scars, verruca or other lesions noted. Ortho: Ankle joint DF is full with the knee extended and full with knee flexed. No pain or crepitusnoted. STJ, MTJ ROM are full and free of pain or crepitus. Muscle strength is 5/5 for dorsiflexors,plantarflexors, inverters, everters. Digital deformities include arthritis in great toe. Assessment: (E08.41) Diabetic mononeuropathy associated with diabetes mellitus due to underlying condition (HCC) (primary encounter diagnosis) (R09.89) Diminished pulses in lower extremity (M20.21) Hallux rigidus of right foot Plan: 1. Patient was seen and evaluated. 2. Patient was instructed on the continued importance of diabetic foot care along with proper diet and keeping their blood sugar under control to prevent complications. Instructions given both oral and written. 3. Diabetic shoes ordered Liudmila Norris DPM * Nasreen Nair LPN - 05/23/2022 10:34 AM EST AMB ROOMING INTAKE FLOWSHEET DATA Risk Screening Do you have concerns about personal safety or safety in the home?: No Patient presents with: Left Foot - Established Patient, Follow Up, Diabetic Foot Care Right Foot - Established Patient, Follow Up, Diabetic Foot Care Nasreen Nair LPN documented in this encounterSy[facility]12[facility]22 Miscellaneous Notes* Telephone Encounter - TRU Portillo - 05/03/2022 10:43 AM EST Fax received from sayra Leyva [facility], that patient returned her PAP machine and equipment on 04/25 stating she no longer uses it because of chronic ear infections and hearing loss. Her insurancecompany is also changing in May and Autumn will no longer be covered. TRU Portillo documented in this encounterSycam[facility] Center11-25-2022 Miscellaneous Notes* Addendum Note - Rodrigo Salas MD - 04/08/2022 1:37 PM ESTAddended by: RODRIGO SALAS on: 04/08/2022 01:37 PM Modules accepted: Orders documented in this encounterSycam[facility] Center11-25-2022 History of Present illness Narrative* Rodrigo Salas MD - 04/08/2022 11:50 AM EST Reason for Visit Patient presents with: Recheck: refill ozempic and c/o left ear hearing loss Gabby Guillen is a 76 year old female who presents here today for Above Complaints.. Health Maintenance BP CONTROLLED (<130/80) SHINGRIX VACCINE(1 of 2) DTAP,TDAP,TD(2 - Td or Tdap) ADVANCE DIRECTIVE DISCUSSION DEPRESSION ASSESSMENT HPI. He has a past medical history of rheumatoid arthritis, psoriasis, fibromyalgia, GERD, hypertension,migraines , hyperlipidemia, diabetes type 2, obesity. Gabby had routine EGDs as surveillance for her chronic GERD. She was due for 1 this year and so she had it done in June and was found to have esophageal varices. She was then referred to Dr. Carlin who admitted her and performed an EGD and colonoscopy Dr. Carlin's EGD revealed that patient has grade 1 mid esophageal varices- He noted that the duodenum 1 and 2 parts were normal, antrum was biopsied as she had z line irregularities. She has fatty liver with out any spleenomegaly per our ultrasound reports. She had elastography done which, showed moderate to severe fibrosis. On prilosec for reflux, they are not sure why she has so much acid secretion and has an appointmentcoming up on Monday with Dr Carlin. HTN: Compliant with medications. Denies any chest pain, palpitations, or edema. No SOB. Doesn't check BP at home generally. Careful with diet to avoid salt, trying to eat more fruits and vegetables, exercises regularly. Patient has been on the repatha injections for 3 years, once a month. There was difficulty getting ozempic last visit. She took last done on Monday last week. She has been on weight loss trend with the medication No problem-specific Assessment & Plan notes found for this encounter. PAST MEDICAL HISTORY Diagnosis Date Adjustment disorder with depressed mood 03/17/2005 Arthritis Dyspareunia 03/17/2005 Esophageal reflux Gastroesophageal reflux Esophageal reflux Impaired fasting glucose 03/17/2005 Mixed hyperlipidemia Myalgia and myositis, unspecified Other and unspecified hyperlipidemia 03/17/2005 PMH - PAST MEDICAL HISTORY OF TIA's PMH - PAST MEDICAL HISTORY OF skin cancer Rheumatoid arthritis(714.0) Trace cataracts 2007 Uncontrolled type 2 diabetes mellitus with hyperglycemia (HCC) 04/01/2010 Unspecified asthma(493.90) 03/17/2005 Unspecified closed fracture of ankle Unspecified essential hypertension 03/17/2005 PAST SURGICAL HISTORY Procedure Laterality Date ABDOMINAL SURGERY HX ADENOIDECTOMY PRIMARY <AGE 12 child Adenoidectomy ADENOIDECTOMY SECONDARY AGE 12/> APPENDECTOMY age 30s incidental to SARAH APPENDECTOMY HX BIOPSY BREAST OPEN INCISIONAL Bx of breast, incisional x3 both BREAST SURGERY HX CHOLECYSTECTOMY Cholecystectomy CHOLECYSTECTOMY COLONOSCOPY FLX DX W/COLLJ SPEC WHEN PFRMD 08/2002 Colonoscopy COLONOSCOPY FLX DX W/COLLJ SPEC WHEN PFRMD 2010 Colonoscopy COLONOSCOPY SCREENING 07/07/2021 EGD W/O [facility] SPEC VARICIES INJ 07/07/2021 ESOPHAGOGASTRODUODENOSCOPY TRANSORAL DIAGNOSTIC EGD ESOPHAGOGASTRODUODENOSCOPY TRANSORAL DIAGNOSTIC 08/2002 EGD ESOPHAGOGASTRODUODENOSCOPY TRANSORAL DIAGNOSTIC 04/14/2011 EGD EYE SURGERY HX KNEE LEFT OP SURGERY LUMPECTOMY/RADIOTHERAPY DIAG MAMM/A10 1980s bilat NEUROPLASTY &/TRANSPOS MEDIAN NRV CARPAL TUNNE both PAST SURGICAL HISTORY OF benign leg tumor PAST SURGICAL HISTORY OF multiple brest lumpectomy x3 benign both PAST SURGICAL HISTORY OF facial/mouth surgery PAST SURGICAL HISTORY OF dental surgery PAST SURGICAL HISTORY OF bladder/colon with fistula tumor benign PAST SURGICAL HISTORY OF benign tumor from right lower leg PAST SURGICAL HISTORY OF 04/27/2005 right shoulder scope and debridement SKIN BIOPSY HX TONSILLECTOMY HX TONSILLECTOMY PRIMARY/SECONDARY <AGE 12 chil Tonsillectomy TOTAL ABDOMINAL HYSTERECT W/WO RMVL TUBE OVARY Hysterectomy, SARAH + BSO in stages VAGINAL HYSTERECTOMY FAMILY HISTORY Problem Relation Age of Onset Hypertension Mother Breast Cancer Mother Diabetes Father Heart Father Hypertension Father Hypertension Sister Hypertension Brother 3 brothers all with hypertension diabetes all have this Thyroid Daughter Hypertension Son Diabetes Son Cancer Daughter thyroid Diabetes Sister x 2 both have diabetes Cancer Brother All 3 Brothers Hypertension Other Several Family Member Social History Tobacco Use Smoking status: Never Smokeless tobacco: Never Vaping Use Vaping Use: Never used Substance Use Topics Alcohol use: Yes Comment: Occasionally Drug use: No Past medical history, appointments, medications, allergies reviewed. Pertinent Lab/Diagnostic Studies are reviewed and discussed today Current Outpatient Medications: semaglutide (OZEMPIC) 0.25 mg or 0.5 mg(2 mg/1.5 mL) pen carvedilol (COREG) 3.125 mg tablet losartan (COZAAR) 100 mg tablet hydrocortisone 2.5 % cream REPATHA PUSHTRONEX 420 mg/3.5 mL CPAP fluconazole (DIFLUCAN) 150 mg tablet TREMFYA 100 mg/mL AutoInjector potassium chloride SR (MICRO-K) 10 mEq CR capsule omeprazole (PRILOSEC) 20 mg capsule hydroCHLOROthiazide (HYDRODIURIL, ESIDRIX) 25 mg tablet ketoconazole (NIZORAL) 2 % cream cholecalciferol, Vitamin D3, 50,000 unit cap capsule Blood Sugar Diagnostic, Drum (ACCU-CHEK COMPACT TEST) Strp Lancets (ACCU-CHEK SOFTCLIX LANCETS) lancets aspirin 325 mg ORAL tablet Ca Carb-Mag Cmb 11-D3-Zn Sulf [phone] yy-ihhd-gx-mg tab blood-glucose meter, drum-type(ACCU-CHEK COMPACT PLUS CARE KIT) Review of Systems CONSTITUTIONAL: No fevers, chills night sweats, unintended weight loss CARDIOVASCULAR: No chest pain, dyspnea, palpitations, orthopnea, PND, ankle edema. PULM: No dyspnea, unexplained cough. GI: No dysphagia/odynophagia, problematic reflux, constipation, diarrhea, changes in stool habits, hematochezia, melena. : No new urinary complaints, including dysuria, gross hematuria or pyuria. NEURO: No new balance problems, peripheral weakness/paresthesias or numbness of concern. Physical Exam BP 130/74 (BP Site: Left Arm, BP Position: Sitting, BP Cuff Size: Large Adult) Pulse 71 Temp 36.7 C (98 F) Resp 12 Ht 152.4 cm (5') Wt 73.9 kg (163 lb) SpO2 95% BMI 31.83 kg/m General appearance: Well appearing, alert, in no acute distress, well nourished. Skin: Skin color, texture, turgor normal, no suspicious rashes or lesions Ears: R TM - clear with good landmarks, nl light reflex, L TM - clear with good landmarks, dull light reflex Head: Normocephalic, no masses, lesions, tenderness or abnormalities Eyes: Anicteric sclera. Pupils are equally round and reactive to light. Extraocular movements are intact. Lungs: Lungs clear to auscultation. No wheezing, rhonchi, rales Heart: RRR without murmur, gallop, or rubs. Extremities: No deformities, edema, skin discoloration, clubbing or cyanosis. Good capillary refill. ASSESSMENT/PLAN: 1. Decreased hearing of left ear - ICD9: 389.9, ICD10: H91.92 (primary diagnosis) - CONSULT TO ENT 2. Controlled type 2 diabetes mellitus without complication, without long-term current use of insulin (HCC) - ICD9: 250.00, ICD10: E11.9 Controlled. - Continue current medications - OZEMPIC 1 MG/DOSE (4 MG/3 ML) SUBCUTANEOUS PEN INJECTOR 3. Mixed hyperlipidemia - ICD9: 272.2, ICD10: E78.2 4. Essential hypertension - ICD9: 401.9, ICD10: I10 - good control - Recommended regular aerobic exercise. - Recommend home blood pressure monitoring, to bring results in on next visit - Goal of BP <130/80 Rodrigo Salas MD documented in this encounterSy[facility]11-12-2022 History of Present illness Narrative* Osvaldo Hamilton MD - 03/26/2022 11:22 AM EST Patient presents with: Ear Pain: R ear pain, ST, chest congestion, sinus drainage x2 days HPI: Feeling sick for 3 days. Grandchild was sick. Home COVID test negative yesterday. Positive symptoms: Cough, green phlegm, Sore throat, Earache, Sinus pressure, Nasal Congestion, Rhinorrhea, Shortness of breath (pulse ox 92%) Negative symptoms: Fever, , OTC: Cold Medicine PAST MEDICAL HISTORY Diagnosis Date Adjustment disorder with depressed mood 03/17/2005 Arthritis Dyspareunia 03/17/2005 Esophageal reflux Gastroesophageal reflux Esophageal reflux Impaired fasting glucose 03/17/2005 Mixed hyperlipidemia Myalgia and myositis, unspecified Other and unspecified hyperlipidemia 03/17/2005 PMH - PAST MEDICAL HISTORY OF TIA's PMH - PAST MEDICAL HISTORY OF skin cancer Rheumatoid arthritis(714.0) Trace cataracts 2007 Uncontrolled type 2 diabetes mellitus with hyperglycemia (HCC) 04/01/2010 Unspecified asthma(493.90) 03/17/2005 Unspecified closed fracture of ankle Unspecified essential hypertension 03/17/2005 MEDICATIONS: Current Outpatient Medications Medication Sig semaglutide (OZEMPIC) 0.25 mg or 0.5 mg(2 mg/1.5 mL) pen Inject 0.5 mg subcutaneously one time a week. carvedilol (COREG) 3.125 mg tablet Take 4 tablets by mouth twice daily. losartan (COZAAR) 100 mg tablet Take 1 tablet by mouth once daily. hydrocortisone 2.5 % cream abdomenal areas as needed REPATHA PUSHTRONEX 420 mg/3.5 mL 3.5 mL by INJECTION(UNSPECIFIED PARENTERAL ROUTES) route once every month. Once a month CPAP AutoPAP with humidification set at range of 5-15 cmH2O. Needs mask fit. Lifetime supplies. fluconazole (DIFLUCAN) 150 mg tablet TAKE ONE(1) TABLET BY MOUTH WHEN FILLED THEN AGAIN IN 3DAYS IFSTILL SYMPTOMATIC TREMFYA 100 mg/mL AutoInjector Inject 1 Dose subcutaneously as directed. Every other month potassium chloride SR (MICRO-K) 10 mEq CR capsule Take 1 capsule by mouth twice daily. (Patient taking differently: Take 10 mEq by mouth once daily.) omeprazole (PRILOSEC) 20 mg capsule Take 1 capsule by mouth every 12 hours. hydroCHLOROthiazide (HYDRODIURIL, ESIDRIX) 25 mg tablet Take 1 tablet by mouth once daily. ketoconazole (NIZORAL) 2 % cream Apply 1 application to affected area once daily. Apply to rash andsurrounding area cholecalciferol, Vitamin D3, 50,000 unit cap capsule Take 1 capsule by mouth one time a week. Blood Sugar Diagnostic, Drum (ACCU-CHEK COMPACT TEST) Strp TEST BLOOD SUGAR ONCE DAILY. 250.00 Lancets (ACCU-CHEK SOFTCLIX LANCETS) lancets TEST BLOOD SUGAR ONCE DAILY. 250.00 aspirin 325 mg ORAL tablet Take 1 tablet by mouth once daily. Ca Carb-Mag Cmb 11-D3-Zn Sulf [phone] qf-ntgb-lc-mg tab Take by mouth. blood-glucose meter, drum-type(ACCU-CHEK COMPACT PLUS CARE KIT) As directed No current facility-administered medications for this visit. ALLERGIES: ALLERGIES Allergen Reactions Amlodipine Swelling Biaxin [Clarithromy* Rash Metformin Diarrhea ER formulation caused symptoms at 1 tablet per day Ixsidye-Uie-Tvo Red* Intolerance myalgia and diarrhea VITALS: BP 152/82 Pulse 64 Temp 36.1 C (96.9 F) Resp 18 Wt 74.9 kg (165 lb 3.2 oz) SpO2 96% BMI32.26 kg/m PHYSICAL EXAM: GEN: mildly ill appearing. Hard of hearing. Accompanied by her . HEENT: PERRL, EOMI, conjunctiva clear Ears: canals clear. TM without erythema, bulge, and purulent effusion Sinuses: non-tender frontal sinus, non-tender maxillary sinuses Throat: moist mucous membranes, mild erythema, no exudate Neck: supple, no thyromegaly, no lymphadenopathy HEART: regular rate and rhythm, no murmurs LUNGS: clear to auscultation, no wheezes or crackles, no increased WOB ASSESSMENT/PLAN: 1. Non-recurrent acute suppurative otitis media of both ears without spontaneous rupture of tympanic membranes - ICD9: 382.00, ICD10: H66.003 (primary diagnosis) - AMOXICILLIN 875 MG-POTASSIUM CLAVULANATE 125 MG TABLET 2. URI, acute - ICD9: 465.9, ICD10: J06.9 - 2019 CORONAVIRUS Osvaldo Hamilton MD documented in this encounterSycam[facility] Center09-13-2022 Miscellaneous Notes* Telephone Encounter - Darlene Rascon Max Pss - 01/25/2022 3:13 PM EDT Received fax from [facility] requesting last office notes. I faxed the office notes from 01/13/22 to fax# [phone]. The next appointment is scheduled for 05/23/22. documented in this encounterSycamore Medical Center09-07-2022 Miscellaneous Notes* Telephone Encounter - Ava Alexandra RN - 01/19/2022 9:15 AM EDT Patient returned call and given provider's message below. Pt states she will hold off on pursuing vascular doctor at this time. Ava Alexandra RN * Telephone Encounter - Justine Constantino Ma - 01/19/2022 9:04 AM EDT Left message for return call. * Telephone Encounter - Rodrigo Salas MD - 01/17/2022 8:21 PM EDT There is some decreased blood flow in the toe which may be causing some pain, There is usually no intervention when the very small vessels have issues, if she would like she cansee the vascular doctor. Regards, Rodrigo Salas MD documented in this encounterSycamore [facility] Center08-22-2022 History of Present illness Narrative* Reinaldo Choi MD - 01/03/2022 2:03 PM EDT Images from the original note were not included. Reinaldo Choi MD Interventional Cardiology [place] [address], [place] [address] [phone] Chief Complaint Patient presents with: Follow Up HISTORY OF PRESENT ILLNESS: Ms. Guillen is a 76 year old female seen in my office today for follow-up of moderate coronary arterydisease involving LAD which is a long segment 50 to 60% and proximal mild right coronary artery disease patient continued having chest pain with or without exertion her nuclear stress test prior to her cardiac catheterization showed normal perfusion Blood pressure is poorly controlled Cardiac Risk Factors age (male over 45, female over 55), hyperlipidemia, hypertension, family history of CAD PAST MEDICAL HISTORY Diagnosis Date Adjustment disorder with depressed mood 03/17/2005 Arthritis Dyspareunia 03/17/2005 Esophageal reflux Gastroesophageal reflux Esophageal reflux Impaired fasting glucose 03/17/2005 Mixed hyperlipidemia Myalgia and myositis, unspecified Other and unspecified hyperlipidemia 03/17/2005 PMH - PAST MEDICAL HISTORY OF TIA's PMH - PAST MEDICAL HISTORY OF skin cancer Rheumatoid arthritis(714.0) Trace cataracts 2007 Uncontrolled type 2 diabetes mellitus with hyperglycemia (HCC) 04/01/2010 Unspecified asthma(493.90) 03/17/2005 Unspecified closed fracture of ankle Unspecified essential hypertension 03/17/2005 PAST SURGICAL HISTORY Procedure Laterality Date ABDOMINAL SURGERY HX ADENOIDECTOMY PRIMARY <AGE 12 child Adenoidectomy ADENOIDECTOMY SECONDARY AGE 12/> APPENDECTOMY age 30s incidental to SARAH APPENDECTOMY HX BIOPSY BREAST OPEN INCISIONAL Bx of breast, incisional x3 both BREAST SURGERY HX CHOLECYSTECTOMY Cholecystectomy CHOLECYSTECTOMY COLONOSCOPY FLX DX W/COLLJ SPEC WHEN PFRMD 08/2002 Colonoscopy COLONOSCOPY FLX DX W/COLLJ SPEC WHEN PFRMD 2010 Colonoscopy COLONOSCOPY SCREENING [facility]/07[facility]20[facility] 07/07/2021 ESOPHAGOGASTRODUODENOSCOPY TRANSORAL DIAGNOSTIC EGD ESOPHAGOGASTRODUODENOSCOPY TRANSORAL DIAGNOSTIC 08/2002 EGD ESOPHAGOGASTRODUODENOSCOPY TRANSORAL DIAGNOSTIC 04/14/2011 EGD EYE SURGERY HX KNEE LEFT OP SURGERY LUMPECTOMY/RADIOTHERAPY DIAG MAMM/A10 1980s bilat NEUROPLASTY &/TRANSPOS MEDIAN NRV CARPAL TUNNE both PAST SURGICAL HISTORY OF benign leg tumor PAST SURGICAL HISTORY OF multiple brest lumpectomy x3 benign both PAST SURGICAL HISTORY OF facial/mouth surgery PAST SURGICAL HISTORY OF dental surgery PAST SURGICAL HISTORY OF bladder/colon with fistula tumor benign PAST SURGICAL HISTORY OF benign tumor from right lower leg PAST SURGICAL HISTORY OF 04/27/2005 right shoulder scope and debridement SKIN BIOPSY HX TONSILLECTOMY HX TONSILLECTOMY PRIMARY/SECONDARY <AGE 12 chil Tonsillectomy TOTAL ABDOMINAL HYSTERECT W/WO RMVL TUBE OVARY Hysterectomy, SARAH + BSO in stages VAGINAL HYSTERECTOMY FAMILY HISTORY Problem Relation Age of Onset Hypertension Mother Breast Cancer Mother Diabetes Father Heart Father Hypertension Father Hypertension Sister Hypertension Brother 3 brothers all with hypertension diabetes all have this Thyroid Daughter Hypertension Son Diabetes Son Cancer Daughter thyroid Diabetes Sister x 2 both have diabetes Cancer Brother All 3 Brothers Hypertension Other Several Family Member Social History Tobacco Use Smoking status: Never Smokeless tobacco: Never Vaping Use Vaping Use: Never used Substance Use Topics Alcohol use: Yes Comment: Occasionally Drug use: No ALLERGIES Allergen Reactions Amlodipine Swelling Biaxin [Clarithromy* Rash Metformin Diarrhea ER formulation caused symptoms at 1 tablet per day Ydtyvxk-Udb-Pwn Red* Intolerance myalgia and diarrhea Medications: Current Outpatient Medications Medication Sig Dispense Refill carvedilol (COREG) 3.125 mg tablet Take 4 tablets by mouth twice daily. 180 tablet 3 losartan (COZAAR) 100 mg tablet Take 1 tablet by mouth once daily. 90 tablet 3 hydrocortisone 2.5 % cream abdomenal areas as needed 60 g 6 REPATHA PUSHTRONEX 420 mg/3.5 mL 3.5 mL by INJECTION(UNSPECIFIED PARENTERAL ROUTES) route once every month. Once a month 12 Each 0 CPAP AutoPAP with humidification set at range of 5-15 cmH2O. Needs mask fit. Lifetime supplies. 1 Each 999 semaglutide (OZEMPIC) 0.25 mg or 0.5 mg(2 mg/1.5 mL) pen injector Inject 0.5 mg subcutaneously one time a week. 1 Syringe 5 fluconazole (DIFLUCAN) 150 mg tablet TAKE ONE(1) TABLET BY MOUTH WHEN FILLED THEN AGAIN IN 3DAYS IFSTILL SYMPTOMATIC 2 tablet 0 TREMFYA 100 mg/mL AutoInjector Inject 1 Dose subcutaneously as directed. Every other month potassium chloride SR (MICRO-K) 10 mEq CR capsule Take 1 capsule by mouth twice daily. (Patient taking differently: Take 10 mEq by mouth once daily. ) 180 capsule 3 omeprazole (PRILOSEC) 20 mg capsule Take 1 capsule by mouth every 12 hours. 180 capsule 3 hydroCHLOROthiazide (HYDRODIURIL, ESIDRIX) 25 mg tablet Take 1 tablet by mouth once daily. 90 tablet 3 ketoconazole (NIZORAL) 2 % cream Apply 1 application to affected area once daily. Apply to rash andsurrounding area 30 g 5 cholecalciferol, Vitamin D3, 50,000 unit cap capsule Take 1 capsule by mouth one time a week. 0 Blood Sugar Diagnostic, Drum (ACCU-CHEK COMPACT TEST) Strp TEST BLOOD SUGAR ONCE DAILY. 250.00 51 Strip 11 Lancets (ACCU-CHEK SOFTCLIX LANCETS) lancets TEST BLOOD SUGAR ONCE DAILY. 250.00 100 Each 11 aspirin 325 mg ORAL tablet Take 1 tablet by mouth once daily. 0 Ca Carb-Mag Cmb 11-D3-Zn Sulf ([id number]-OFFU) [phone] zf-qntq-ft-mg ORAL Tab Take bymouth. 0 blood-glucose meter, drum-type(ACCU-CHEK COMPACT PLUS CARE KIT) As directed 1 0 No current facility-administered medications for this visit. Review of Systems Constitutional: Negative for chills, diaphoresis, fever, malaise/fatigue and weight loss. HENT: Negative for congestion, ear discharge, ear pain, hearing loss, nosebleeds, sinus pain, sore throat and tinnitus. Eyes: Negative for blurred vision, double vision, photophobia, pain, discharge and redness. Respiratory: Negative for cough, hemoptysis, sputum production, shortness of breath, wheezing and stridor. Cardiovascular: Positive for chest pain. Negative for palpitations, orthopnea, claudication, leg swelling and PND. Gastrointestinal: Negative for abdominal pain, blood in stool, constipation, diarrhea, heartburn, melena, nausea and vomiting. Genitourinary: Negative for dysuria, flank pain, frequency, hematuria and urgency. Musculoskeletal: Negative for back pain, falls, joint pain, myalgias and neck pain. Skin: Negative for itching and rash. Neurological: Negative for dizziness, tingling, tremors, sensory change, speech change, focal weakness, seizures, loss of consciousness, weakness and headaches. Endo/Heme/Allergies: Negative for environmental allergies and polydipsia. Does not bruise/bleed easily. Psychiatric/Behavioral: Negative for depression, hallucinations, memory loss, substance abuse and suicidal ideas. The patient is not nervous/anxious and does not have insomnia. Physical Examination: Vitals:BP 200/92 Pulse 68 Resp 20 Wt 170 lb 10.2 oz (77.4kg) BP w/Orthostatic Vitals Date and Time Orthostatic BP Orthostatic Pulse BP Pulse BP Position BP Site BP Cuff Size 01/03/22 1340 -- -- 200/92 -- Sitting Right Arm Large Adult 01/03/22 1334 -- -- 204/102 68 Sitting Right Arm Regular Adult Peak Flow Date and Time PF Resp 01/03/22 1334 -- 20 Last 2 Encounter Wt Readings: Date: Wt: 01/03/2022 77.4 kg (170 lb 10.2 oz) 12/14/2021 77.6 kg (171 lb) Physical Exam Constitutional: General: She is not in acute distress. Appearance: She is not diaphoretic. HENT: Head: Normocephalic and atraumatic. Right Ear: External ear normal. Left Ear: External ear normal. Nose: Nose normal. Mouth/Throat: Pharynx: Oropharynx is clear. Eyes: General: Right eye: No discharge. Left eye: No discharge. Conjunctiva/sclera: Conjunctivae normal. Pupils: Pupils are equal, round, and reactive to light. Cardiovascular: Rate and Rhythm: Normal rate and regular rhythm. Heart sounds: Normal heart sounds, S1 normal and S2 normal. No murmur heard. No friction rub. No gallop. No S3 or S4 sounds. Pulmonary: Effort: Pulmonary effort is normal. No respiratory distress. Breath sounds: Normal breath sounds. No wheezing or rales. Chest: Chest wall: No tenderness. Musculoskeletal: General: Normal range of motion. Cervical back: Normal range of motion and neck supple. Skin: General: Skin is warm and dry. Neurological: Mental Status: She is alert and oriented to person, place, and time. Psychiatric: Mood and Affect: Mood normal. Behavior: Behavior normal. Thought Content: Thought content normal. Judgment: Judgment normal. Pertinent Labs: CBC: Hemoglobin (g/dL) Date Value 09/06/2021 14.0 03/23/2021 13.7 Hematocrit (%) Date Value 09/06/2021 42.6 03/23/2021 41.6 WBC (k/uL) Date Value 09/06/2021 7.14 03/23/2021 6.57 Platelet Count (k/uL) Date Value 09/06/2021 309 03/23/2021 286 BMP: Glucose (mg/dL) Date Value 12/13/2021 98 03/23/2021 124 Potassium (mmol/L) Date Value 12/13/2021 4.7 03/23/2021 4.0 Sodium (mmol/L) Date Value 12/13/2021 139 03/23/2021 137 Chloride (mmol/L) Date Value 12/13/2021 102 03/23/2021 97 CO2 (mmol/L) Date Value 12/13/2021 27 03/23/2021 29 Creatinine (mg/dL) Date Value 12/13/2021 0.87 03/23/2021 0.92 BUN (mg/dL) Date Value 12/13/2021 15 03/23/2021 18 Anion Gap (mmol/L) Date Value 12/13/2021 10 03/23/2021 11 Calcium (mg/dL) Date Value 03/23/2021 9.8 Calcium, Total (mg/dL) Date Value 12/13/2021 9.7 INR: Lipid Profile: Cholesterol, Total Date Value Ref Range Status 12/13/2021 156 <200 mg/dL Final Comment: <200 mg/dL, Desirable 200-239 mg/dL, Borderline high >239 mg/dL, High HDL Cholesterol Date Value Ref Range Status 12/13/2021 49 >39 mg/dL Final Comment: 40-59 mg/dL, Acceptable >59 mg/dL, High: Negative risk factor for coronary heart disease <40 mg/dL, Low: Positive risk factor for coronary heart disease LDL Cholesterol Date Value Ref Range Status 12/13/2021 81 <100 mg/dL Final Comment: <100 mg/dL, Optimal 100-129 mg/dL, Near optimal/above optimal 130-159 mg/dL, Borderline high 160-189 mg/dL, High >189 mg/dL, Very high Secondary prevention optimal LDL Cholesterol levels are recommended to be < 70 mg/dL Triglyceride Date Value Ref Range Status 12/13/2021 131 <150 mg/dL Final Comment: <150 mg/dL, Normal 150-199 mg/dL, Borderline high 200-499 mg/dL, High >499 mg/dL, Very high Hemoglobin A1C: No results found for: HGBA1C TSH: No results found for: TSHREFL Prior Cardiac Testing none Assessment and Plan: 76 years old female patient with moderate LAD and right coronary artery disease continue with medical treatment blood pressure is poorly controlled as her Coreg to 12.5 mg twice a day Goal blood pressure is 130/90 Follow-up in 6 Follow up plannin months Electronically signed by Reinaldo Choi MD on January 03, 2022, 2:03 PM The above note was partially created using a dictation recognition software. A reasonable attempt has been made to correct any errors. documented in this encounterSycamore Medical Center06-23-2022 Miscellaneous Notes* Telephone Encounter - Alondra Frederick LPN - 11/04/2021 11:07 AM EDT Patient's request for medication is as follows: Pending Prescriptions Disp Refills REPATHA PUSHTRONEX 420 MG/3.5 ML SUBCUTANEOUS WEARABLE INJECTOR 12 Each 0 Si.5 mL by INJECTION(UNSPECIFIED PARENTERAL ROUTES) route once every month. Once a month FACUNDO: Yes Pt next appt with Murphy on 01/03/22. Prescription(s) as above. Please process accordingly. Alondra Frederick LPN documented in this encounterSycamore Medical Center05-23-2022 Instructions* Patient Instructions* Duncan West Jr., MD - 10/04/2021 1:02 PM EDT Lelia Guo, [facility] [address] [place] [address] [facility] [address] [place] [id number] [facility] [address] [place] [id number] Monday, Monday, Monday Appt: [phone] Cathi Stevens, PhD, [facility] [address] [place] [id number] [facility] [address] [place] [address] Mondays, Tuesdays & Monday Appt: [phone] Diana Bell, [facility] [address] [place] [place] [address] [facility] [address] [place] [id number] [facility] [address] [place] [address] Monday, Monday, Monday Appt: [phone] Tiffanie Cardona, [facility] [address] [place] [address] [facility] [address] [place] [address] [facility] [address] [place] [address] Monday, , Monday Appt: [phone] Cherelle Cuevas, [facility] [address] [facility] [place] [address] [facility] [address] [place] [address] Monday, Monday, Monday, Monday Appt: [phone] Becki Ball [facility] [address] [place] [address] [facility] [address] [place] [address] Monday, Monday, Monday, Monday Appt: [phone] documented in this encounterSycamore Medical Center05-23-2022 History of Present illness Narrative* Duncan West Jr., MD - 10/04/2021 10:15 AM EDT ESTABLISHED PATIENT VISIT CHIEF COMPLAINT: Follow Up HISTORY OF PRESENT ILLNESS: Gabby Guillen is a 76 year old female, BMI 34.96 kg/m2 with a PMH significant for and per last office visit note of 04/05/21: 1. ESTRELLITA (obstructive sleep apnea) - ICD9: 327.23, ICD10: G47.33 (primary diagnosis) 2. Class 2 obesity with body mass index (BMI) of 35.0 to 35.9 in adult, unspecified obesity type, unspecified whether serious comorbidity present - ICD9: 278.00, V85.35, ICD10: E66.9, Z68.35 Patient with known history of ESTRELLITA (dx ~20 years ago) for which she is not receiving treatment (pt'schoice). However, patient with multiple med conditions that could be exacerbated by untreated ESTRELLITA including HTN, DM, CAD. Risk factors for ESTRELLITA provided by patient include obesity as well as post-menopause state. Will further evaluate by means of an overnight PSG (in lab given reported cardiac disease). With repots of headaches in AM, as well as cardiac and pulmonary complaints, will request transcutaneous CO2. Will also ask for split if possible and if AHI >15. Will further evaluate insomnia once ESTRELLITA is treated. Per discussion today, insomnia likely of psychophysiological nature vs secondary to known depression vs secondary to irregular sleep schedule (napsduring day). Pt asks that focus be placed on ESTRELLITA for now. During the interim pt completed sleep study at [facility] on 05/03/12 where found to have mild ESTRELLITA that was worse in REM sleep. However, study was not split due to patient having fragmentation of sleep during the first half of the study. Reviewed sleep study with patient. States she does take Benadryl at night along with Tylenol due to allergies and chronic pain. Takes about 30 minutes to fall asleep but only waking about twice during the night. Dry mouth during the night. Wakes feeling unrefreshed. No abnormal movements. Sleep Questionnaire Data Depression Screening 07/26/2021 09/02/2021 10/03/2021 PHQ-2 Score 0 0 0 PHQ-9 Score 9 0 2 PED PHQ-9 07/26/2021 09/02/2021 10/03/2021 Little interest or pleasure in doing things Not at all Not at all Not at all Feeling down, depressed, or hopeless Not at all Not at all Not at all Trouble falling or staying asleep, or sleeping too much Nearly every day Not at all Several days Feeling tired or having little energy Nearly every day Not at all Several days Poor appetite or overeating Nearly every day Not at all Not at all Feeling bad about yourself - or that you are a failure or have let yourself or your family down Notat all Not at all Not at all Trouble concentrating on things, such as reading the newspaper or watching television Not at all Not at all Not at all Moving or speaking so slowly that other people could have noticed. Or the opposite - being so fidgety or restless that you have been moving around a lot more than usual Not at all Not at all Not at all Thoughts that you would be better off , or of hurting yourself in some way Not at all Not at all Not at all If you checked off any problems, how difficult have these problems made it for you to do your work,take care of things at home, or get along with other people? Not difficult at all Not difficult at all Not difficult at all PHQ-9 Score 9 (Mild Depression) 0 (None-Minimal Depression) 2 (None-Minimal Depression) [place] Sleepiness Scale 07/26/2021 09/02/2021 10/03/2021 Score 7 (No daytime sleepiness) - Incomplete REVIEW OF SYSTEMS GENERAL:No weight loss, malaise or fevers. HEENT:Negative for frequent or significant headaches, No changes in hearing or vision, no nose bleeds or other nasal problems RESPIRATORY: Negative for cough, wheezing or shortness of breath except GOULD. CARDIOVASCULAR: Negative for chest pain, leg swelling or palpitations. LAB/IMAGING: Those performed since patient's last visit have been reviewed. WBC (k/uL) Date Value 09/06/2021 7.14 RBC (m/uL) Date Value 09/06/2021 4.84 Hemoglobin (g/dL) Date Value 09/06/2021 14.0 Hematocrit (%) Date Value 09/06/2021 42.6 MCV (fL) Date Value 09/06/2021 88.0 MCH (pg) Date Value 09/06/2021 28.9 MCHC (g/dL) Date Value 09/06/2021 32.9 RDW-CV (%) Date Value 09/06/2021 13.4 Platelet Count (k/uL) Date Value 09/06/2021 309 MPV (fL) Date Value 09/06/2021 10.4 Glucose (mg/dL) Date Value 09/06/2021 104 (H) BUN (mg/dL) Date Value 09/06/2021 18 Creatinine (mg/dL) Date Value 09/06/2021 1.02 (H) Sodium (mmol/L) Date Value 09/06/2021 140 Potassium (mmol/L) Date Value 09/06/2021 4.3 Chloride (mmol/L) Date Value 09/06/2021 102 CO2 (mmol/L) Date Value 09/06/2021 28 Protein, Total (g/dL) Date Value 09/06/2021 7.1 Albumin (g/dL) Date Value 09/06/2021 4.2 Calcium, Total (mg/dL) Date Value 09/06/2021 9.8 Alkaline Phosphatase (U/L) Date Value 09/06/2021 89 Bilirubin, Total (mg/dL) Date Value 09/06/2021 0.8 AST (U/L) Date Value 09/06/2021 28 ALT (U/L) Date Value 09/06/2021 21 Rheumatoid Factor (IU/mL) Date Value 04/03/2008 9 Hep C Antibody IA (no units) Date Value 01/01/2021 Equivocal (A) Hemoglobin A1C (%) Date Value 09/06/2021 5.8 03/23/2021 6.2 MEDICATIONS: carvedilol (COREG) 3.125 mg tablet Take 2 tablets by mouth twice daily. semaglutide (OZEMPIC) 0.25 mg or 0.5 mg(2 mg/1.5 mL) pen injector Inject 0.5 mg subcutaneously one time a week. fluconazole (DIFLUCAN) 150 mg tablet TAKE ONE(1) TABLET BY MOUTH WHEN FILLED THEN AGAIN IN 3DAYS IFSTILL SYMPTOMATIC TREMFYA 100 mg/mL AutoInjector Inject 1 Dose subcutaneously as directed. Every other month REPATHA PUSHTRONEX 420 mg/3.5 mL 3.5 mL by INJECTION(UNSPECIFIED PARENTERAL ROUTES) route once every month. potassium chloride SR (MICRO-K) 10 mEq CR capsule Take 1 capsule by mouth twice daily. losartan (COZAAR) 100 mg tablet Take 1 tablet by mouth once daily. omeprazole (PRILOSEC) 20 mg capsule Take 1 capsule by mouth every 12 hours. FLUoxetine (PROZAC) 20 mg capsule Take 1 capsule by mouth once daily. hydroCHLOROthiazide (HYDRODIURIL, ESIDRIX) 25 mg tablet Take 1 tablet by mouth once daily. ketoconazole (NIZORAL) 2 % cream Apply 1 application to affected area once daily. Apply to rash andsurrounding area cholecalciferol, Vitamin D3, 50,000 unit cap capsule Take 1 capsule by mouth one time a week. Blood Sugar Diagnostic, Drum (ACCU-CHEK COMPACT TEST) Strp TEST BLOOD SUGAR ONCE DAILY. 250.00 Lancets (ACCU-CHEK SOFTCLIX LANCETS) lancets TEST BLOOD SUGAR ONCE DAILY. 250.00 hydrocortisone 2.5 % TOPICAL cream Apply to itching skin or dermatitis rash of fold areas under breasts or undearms or lower abdomen and groin area two to four times per day or more as needed and directed (eg., start promptly at early recurrence of rash as directed and tolerated), until clear and then can stop or taper off as able. AVOID eyes and eyelids. aspirin 325 mg ORAL tablet Take 1 tablet by mouth once daily. Ca Carb-Mag Cmb 11-D3-Zn Sulf ([id number]-RSZU) [phone] ze-nfgp-ae-mg ORAL Tab Take bymouth. blood-glucose meter, drum-type(ACCU-CHEK COMPACT PLUS CARE KIT) As directed HISTORIES PAST MEDICAL HISTORY Diagnosis Date Adjustment disorder with depressed mood 03/17/2005 Arthritis Dyspareunia 03/17/2005 Esophageal reflux Gastroesophageal reflux Esophageal reflux Impaired fasting glucose 03/17/2005 Mixed hyperlipidemia Myalgia and myositis, unspecified Other and unspecified hyperlipidemia 03/17/2005 PMH - PAST MEDICAL HISTORY OF TIA's PMH - PAST MEDICAL HISTORY OF skin cancer Rheumatoid arthritis(714.0) Trace cataracts 2007 Uncontrolled type 2 diabetes mellitus with hyperglycemia (HCC) 04/01/2010 Unspecified asthma(493.90) 03/17/2005 Unspecified closed fracture of ankle Unspecified essential hypertension 03/17/2005 FAMILY HISTORY Problem Relation Age of Onset Hypertension Mother Breast Cancer Mother Diabetes Father Heart Father Hypertension Father Hypertension Sister Hypertension Brother 3 brothers all with hypertension diabetes all have this Thyroid Daughter Hypertension Son Diabetes Son Cancer Daughter thyroid Diabetes Sister x 2 both have diabetes Cancer Brother All 3 Brothers Hypertension Other Several Family Member SOCIAL HISTORY Social History Tobacco Use Smoking status: Never Smoker Smokeless tobacco: Never Used Vaping Use Vaping Use: Never used Substance Use Topics Alcohol use: Yes Comment: Occasionally Drug use: No PHYSICAL EXAMINATION BP 124/82 Pulse 68 Temp 36.8 C (98.3 F) Resp 18 Wt 81.2 kg (179 lb) SpO2 98% BMI 34.96 kg/m GENERAL EXAM: General appearance: NAD, pleasant. HEENT: NC/AT, nasal congestion absent, no oral lesions, membranes moist. NECK: No masses, supple. Lungs: CTA bilaterally. CV: RRR nl S1, S2 Extr: No cyanosis, clubbing or edema. NEUROLOGICAL EXAM: General: Awake, alert, oriented x3 (person,place,time), speech fluent, no dysarthria; comprehension, naming, repetition intact. CN: PERRL, EOMI and without nystagmus, VFF to confrontation, facial sensation and strength are normal and symmetric, hearing is intact, palate and tongue movements are intact and symmetric. SCM and trapezius strength normal. Motor: Normal tone, bulk and strength (5/5) bilaterally (throughout extremities x4). Coordination: FNF, DARRIN intact. No tremors. Sensation: Light touch intact throughout. Gait: Stable. Assessment and Plan: ASSESSMENT/PLAN: 1. ESTRELLITA (obstructive sleep apnea) - ICD9: 327.23, ICD10: G47.33 (primary diagnosis) Patient with ESTRELLITA as noted above and confirmed with sleep study. Mild but worse in REM. Again, studywas not split due to fragmented sleep early on in the study. As no central events, and given mild nature, will attempt to treat with auto pap 5-15 cmH2O after discussing treatment options with pt. Note unable to have oral airway appliance as full dentures. Pt also not interested in surgical options. Will have patient follow up after approximately 2 months of PAP use to determine if changes in PAPsettings would be necessary or if reconsideration of other treatment option need be made. Encouraged weight loss. Advised pt not to drive or operate heavy machinery if sleepy. 2. Chronic insomnia - ICD9: 780.52, ICD10: F51.04 Patient again wants to focus on ESTRELLITA. She does not wish to change meds at this time. Not interested in CBTi. Will reevaluate once using PAP regularly. Discussed means of improving sleep hygiene. Encouraged pt to keep regular sleep and wake times. Duncan West MD I spent 30+ minutes in the visit, with more than 50% of the total [id number] time of the visit incounseling / coordination of care. documented in this encounterSycamore Medical Center04-29-2022 Miscellaneous Notes* Telephone Encounter - Justine Constantino Ma - 09/10/2021 3:40 PM EDT Patient notified. * Telephone Encounter - Deborah Fernandez APRN.CNP - 09/10/2021 3:25 PM EDT Please let patient know that urine shows signs of infection. I am sending an antibiotic to [facility] for her. It is macrobid, one pill twice a day for 5 days. Also US of liver shows fatty liver. Continue with plans as ordered by Dr. Salas. Thank you Deborah Fernandez APRN.WALL CRANE OPERATOR documented in this encounterSycamore Medical Center04-28-2022 Instructions* Patient Instructions* Rodrigo Salas MD - 09/09/2021 10:44 AM EDT Please take 5000 international unit(s) Of Vit D3, from the drug store. Patient has to take it with food. documented in this encounterSycamore Medical Center04-28-2022 History of Present illness Narrative* Rodrigo Salas MD - 09/09/2021 10:22 AM EDT Reason for Visit Patient presents with: Recheck: 2 month Complaint of dizziness x2 days Gabby Guillen is a 76 year old female who presents here today for . Above Complaints. Health Maintenance BP CONTROLLED (<130/80) SHINGRIX VACCINE(1 of 2) DTAP,TDAP,TD(2 - Td or Tdap) ADVANCE DIRECTIVE DISCUSSION DILATED RETINAL EXAM HPI Last couple days she has been really dizzy, or spinning, it is not constant, the room spins when ithappens. Denies having a recent cold or cough but she does not have severe allergies. She is drinking 30 ounces of water, tea is around 12 ounces and coffee 2 big cups. She is getting around 64 ounces. We discussed that she should cut down her caffeine intake. Not resting well at night for the same reason. She then tells about her urine that aviles all the time. She is on the injection Ozempic, she started that a couple months ago and notes that it is helping her. Patient has been feeling pretty well on the injection ozempic, and she would like to continue It Lost around 10 pounds in 2 months. Esophageal varices were found along with gastritis on the egd and colonoscopy that was recently done. This is not expected.. occult cirrhosis No problem-specific Assessment & Plan notes found for this encounter. PAST MEDICAL HISTORY Diagnosis Date Adjustment disorder with depressed mood 03/17/2005 Arthritis Dyspareunia 03/17/2005 Esophageal reflux Gastroesophageal reflux Esophageal reflux Impaired fasting glucose 03/17/2005 Mixed hyperlipidemia Myalgia and myositis, unspecified Other and unspecified hyperlipidemia 03/17/2005 PMH - PAST MEDICAL HISTORY OF TIA's PMH - PAST MEDICAL HISTORY OF skin cancer Rheumatoid arthritis(714.0) Trace cataracts 2007 Uncontrolled type 2 diabetes mellitus with hyperglycemia (HCC) 04/01/2010 Unspecified asthma(493.90) 03/17/2005 Unspecified closed fracture of ankle Unspecified essential hypertension 03/17/2005 PAST SURGICAL HISTORY Procedure Laterality Date ABDOMINAL SURGERY HX ADENOIDECTOMY PRIMARY <AGE 12 child Adenoidectomy ADENOIDECTOMY SECONDARY AGE 12/> APPENDECTOMY age 30s incidental to SARAH APPENDECTOMY HX BIOPSY BREAST OPEN INCISIONAL Bx of breast, incisional x3 both BREAST SURGERY HX CHOLECYSTECTOMY Cholecystectomy CHOLECYSTECTOMY COLONOSCOPY FLX DX W/COLLJ SPEC WHEN PFRMD 08/2002 Colonoscopy COLONOSCOPY FLX DX W/COLLJ SPEC WHEN PFRMD 2010 Colonoscopy COLONOSCOPY SCREENING 07/07/2021 EGD W/O BRSH SPEC VARICIES INJ 07/07/2021 ESOPHAGOGASTRODUODENOSCOPY TRANSORAL DIAGNOSTIC EGD ESOPHAGOGASTRODUODENOSCOPY TRANSORAL DIAGNOSTIC 08/2002 EGD ESOPHAGOGASTRODUODENOSCOPY TRANSORAL DIAGNOSTIC 04/14/2011 EGD EYE SURGERY HX KNEE LEFT OP SURGERY LUMPECTOMY/RADIOTHERAPY DIAG MAMM/A10 1980s bilat NEUROPLASTY &/TRANSPOS MEDIAN NRV CARPAL TUNNE both PAST SURGICAL HISTORY OF benign leg tumor PAST SURGICAL HISTORY OF multiple brest lumpectomy x3 benign both PAST SURGICAL HISTORY OF facial/mouth surgery PAST SURGICAL HISTORY OF dental surgery PAST SURGICAL HISTORY OF bladder/colon with fistula tumor benign PAST SURGICAL HISTORY OF benign tumor from right lower leg PAST SURGICAL HISTORY OF 04/27/2005 right shoulder scope and debridement SKIN BIOPSY HX TONSILLECTOMY HX TONSILLECTOMY PRIMARY/SECONDARY <AGE 12 chil Tonsillectomy TOTAL ABDOMINAL HYSTERECT W/WO RMVL TUBE OVARY Hysterectomy, SARAH + BSO in stages VAGINAL HYSTERECTOMY FAMILY HISTORY Problem Relation Age of Onset Hypertension Mother Breast Cancer Mother Diabetes Father Heart Father Hypertension Father Hypertension Sister Hypertension Brother 3 brothers all with hypertension diabetes all have this Thyroid Daughter Hypertension Son Diabetes Son Cancer Daughter thyroid Diabetes Sister x 2 both have diabetes Cancer Brother All 3 Brothers Hypertension Other Several Family Member Social History Tobacco Use Smoking status: Never Smoker Smokeless tobacco: Never Used Vaping Use Vaping Use: Never used Substance Use Topics Alcohol use: Yes Comment: Occasionally Drug use: No Past medical history, appointments, medications, allergies reviewed. Pertinent Lab/Diagnostic Studies are reviewed and discussed today Current Outpatient Medications: fluconazole (DIFLUCAN) 150 mg tablet carvedilol (COREG) 3.125 mg tablet semaglutide (OZEMPIC) 0.25 mg or 0.5 mg(2 mg/1.5 mL) pen injector TREMFYA 100 mg/mL AutoInjector REPATHA PUSHTRONEX 420 mg/3.5 mL potassium chloride SR (MICRO-K) 10 mEq CR capsule losartan (COZAAR) 100 mg tablet omeprazole (PRILOSEC) 20 mg capsule FLUoxetine (PROZAC) 20 mg capsule hydroCHLOROthiazide (HYDRODIURIL, ESIDRIX) 25 mg tablet ketoconazole (NIZORAL) 2 % cream cholecalciferol, Vitamin D3, 50,000 unit cap capsule Blood Sugar Diagnostic, Drum (ACCU-CHEK COMPACT TEST) Strp Lancets (ACCU-CHEK SOFTCLIX LANCETS) lancets hydrocortisone 2.5 % TOPICAL cream aspirin 325 mg ORAL tablet Ca Carb-Mag Cmb 11-D3-Zn Sulf ([id number]-ESRJ) [phone] jx-gtta-jc-mg ORAL Tab blood-glucose meter, drum-type(ACCU-CHEK COMPACT PLUS CARE KIT) Review of Systems CONSTITUTIONAL: No fevers, chills night sweats, unintended weight loss CARDIOVASCULAR: No chest pain, dyspnea, palpitations, orthopnea, PND, ankle edema. PULM: No dyspnea, unexplained cough. GI: No dysphagia/odynophagia, problematic reflux, constipation, diarrhea, changes in stool habits, hematochezia, melena. : No new urinary complaints, including dysuria, gross hematuria or pyuria. NEURO: No new balance problems, peripheral weakness/paresthesias or numbness of concern. Physical Exam BP 136/80 Pulse 71 Resp 14 Wt 80.3 kg (177 lb) SpO2 98% BMI 34.57 kg/m General appearance: Well appearing, alert, in no acute distress, well nourished. Skin: Skin color, texture, turgor normal, no suspicious rashes or lesions Head: Normocephalic, no masses, lesions, tenderness or abnormalities Eyes: Anicteric sclera. Pupils are equally round and reactive to light. Extraocular movements are intact. Lungs: Lungs clear to auscultation. No wheezing, rhonchi, rales Heart: RRR without murmur, gallop, or rubs. Extremities: No deformities, edema, skin discoloration, clubbing or cyanosis. Good capillary refill. ASSESSMENT/PLAN: 1. Mixed hyperlipidemia - ICD9: 272.2, ICD10: E78.2 (primary diagnosis) - good control - Continue current medication. 2. Essential hypertension - ICD9: 401.9, ICD10: I10 - good control - Recommended regular aerobic exercise. - Recommend home blood pressure monitoring, to bring results in on next visit - Goal of BP <130/80 - CARVEDILOL 3.125 MG TABLET 3. Burning with urination - ICD9: 788.1, ICD10: R30.0 Cut down coffee might help with the incontinence and insomnia - Patient education for prevention given - URINALYSIS, WITH MICROSCOPIC 4. Controlled type 2 diabetes mellitus without complication, without long-term current use of insulin (HCC) - ICD9: 250.00, ICD10: E11.9 Loosing weight with the ozempic, she did well with it. We increased it today 5. Idiopathic esophageal varices without bleeding (HCC) - ICD9: 456.1, ICD10: I85.00 This was not expected , we need to see if, Rodrigo Salas MD documented in this encounterSycamore Medical Center03-31-2022 Miscellaneous Notes* Telephone Encounter - Nitza Mcgarry LPN - 08/12/2021 2:37 PM EDT Pharmacy notified. * Telephone Encounter - Rodrigo Salas MD - 08/12/2021 2:08 PM EDT Stop the tradjenta, we need her to be on ozempic * Telephone Encounter - Lindsay Juan RN - 08/12/2021 12:12 PM EDT Elsa with [facility] calls to ask if provider wants patient to be on Ozempic and Tradjenta.Insurance won't allow fill of Ozempic because it is a duplicate of tradjenta. If both medications are wanted she is requesting prior auth for Ozempic. Prior Authorization Documentation Prior authorization requested for the following medication: Medication: Ozempic Provider: Dr. Salas Insurance Company Name: [employer] Phone number: Patient ID number: [id number] Pharmacy Name: [facility] Telephone number: [phone] Please review and advise, Lindsay Juan RN documented in this encounterSycamore Medical Center05-03-2021 History of Past illness Narrative* Problem Noted Date Resolved Date Obesity, Class II, BMI 35-39.9 09/14/2020 1 06/05/2021 DM (diabetes mellitus) 09/28/2010 Uncontrolled type 2 diabetes mellitus with hyper glycemia 04/01/2010 06/09/2020 Generalized osteoarthrosis, unspecified site 04/05/2022 Other affections of shoulder region, not elsewhere classified 01/17/2006 01/17/2006 Hereditary and idiopathic peripheral neuropathy 11/17/2005 05/26/2020 Unspecified aftercare 04/29/2005 07/04/2005 Follow-up examination, following unspecified jose bernarda 04/29/2005 07/04/2005 impingement syndrome right shoulder 04/01/2005 07/04/2005 Disorders of bursae and tend ons in shoulder region, unspecified 04/01/2005 07/04/2005 Rheumatoid arthritis(714.0) 06/16 documented as of this encounter (statuses as of 04/08/2022) [facility] History of Past illness Narrative* Problem Noted Date Resolved Date Obesity, Class II, BMI 35-39.9 09/14/2020 1 06/05/2021 DM (diabetes mellitus) 09/28/2010 Uncontrolled type 2 diabetes mellitus with hyper glycemia 04/01/2010 06/09/2020 Generalized osteoarthrosis, unspecified site 04/05/2022 Other affections of shoulder region, not elsewhere classified 01/17/2006 01/17/2006 Hereditary and idiopathic peripheral neuropathy 11/17/2005 05/26/2020 Unspecified aftercare 04/29/2005 07/04/2005 Follow-up examination, following unspecified jose bernarda 04/29/2005 07/04/2005 impingement syndrome right shoulder 04/01/2005 07/04/2005 Disorders of bursae and tend ons in shoulder region, unspecified 04/01/2005 07/04/2005 Rheumatoid arthritis(714.0) 06/16 documented as of this encounter (statuses as of 05/18/2022) [facility]05-03-2021 History of Past illness Narrative* Problem Noted Date Resolved Date Obesity, Class II, BMI 35-39.9 09/14/2020 1 06/05/2021 DM (diabetes mellitus) 09/28/2010 1 Uncontrolled type 2 diabetes mellitus with hyper glycemia 04/01/2010 06/09/2020 Generalized osteoarthrosis, unspecified site 04/05/2022 Other affections of shoulder region, not elsewhere classified 01/17/2006 01/17/2006 Hereditary and idiopathic peripheral neuropathy 11/17/2005 05/26/2020 Unspecified aftercare 04/29/2005 07/04/2005 Follow-up examination, following unspecified jose bernarda 04/29/2005 07/04/2005 impingement syndrome right shoulder 04/01/2005 07/04/2005 Disorders of bursae and tend ons in shoulder region, unspecified 04/01/2005 07/04/2005 Rheumatoid arthritis(714.0) 06/16 documented as of this encounter (statuses as of 05/23/2022) [facility]2021 History of Past illness Narrative* Problem Noted Date Resolved Date Obesity, Class II, BMI 35-39.9 09/14/2020 1 06/05/2021 DM (diabetes mellitus) 09/28/2010 1 Uncontrolled type 2 diabetes mellitus with hyper glycemia 04/01/2010 06/09/2020 Generalized osteoarthrosis, unspecified site 04/05/2022 Other affections of shoulder region, not elsewhere classified 01/17/2006 01/17/2006 Hereditary and idiopathic peripheral neuropathy 11/17/2005 05/26/2020 Unspecified aftercare 04/29/2005 07/04/2005 Follow-up examination, following unspecified jose bernarda 04/29/2005 07/04/2005 impingement syndrome right shoulder 04/01/2005 07/04/2005 Disorders of bursae and tend ons in shoulder region, unspecified 04/01/2005 07/04/2005 Rheumatoid arthritis(714.0) 06/16 documented as of this encounter (statuses as of 07/14/2022) [facility]21 History of Past illness Narrative* Problem Noted Date Resolved Date Obesity, Class II, BMI 35-39.9 09/14/2020 1 06/05/2021 DM (diabetes mellitus) 09/28/2010 1 Uncontrolled type 2 diabetes mellitus with hyper glycemia 04/01/2010 06/09/2020 Generalized osteoarthrosis, unspecified site 04/05/2022 Other affections of shoulder region, not elsewhere classified 01/17/2006 01/17/2006 Hereditary and idiopathic peripheral neuropathy 11/17/2005 05/26/2020 Unspecified aftercare 04/29/2005 07/04/2005 Follow-up examination, following unspecified jose bernarda 04/29/2005 07/04/2005 impingement syndrome right shoulder 04/01/2005 07/04/2005 Disorders of bursae and tend ons in shoulder region, unspecified 04/01/2005 07/04/2005 Rheumatoid arthritis(714.0) 06/16 documented as of this encounter (statuses as of 07/14/2022) [facility]21 History of Past illness Narrative* Problem Noted Date Resolved Date Obesity, Class II, BMI 35-39.9 09/14/2020 1 06/05/2021 DM (diabetes mellitus) 09/28/2010 Uncontrolled type 2 diabetes mellitus with hyper glycemia 04/01/2010 06/09/2020 Generalized osteoarthrosis, unspecified site 04/05/2022 Other affections of shoulder region, not elsewhere classified 01/17/2006 01/17/2006 Hereditary and idiopathic peripheral neuropathy 11/17/2005 05/26/2020 Unspecified aftercare 04/29/2005 07/04/2005 Follow-up examination, following unspecified jose bernarda 04/29/2005 07/04/2005 impingement syndrome right shoulder 04/01/2005 07/04/2005 Disorders of bursae and tend ons in shoulder region, unspecified 04/01/2005 07/04/2005 Rheumatoid arthritis(714.0) 06/16 documented as of this encounter (statuses as of 07/18/2022) [facility]21 History of Past illness Narrative* Problem Noted Date Resolved Date Obesity, Class II, BMI 35-39.9 09/14/2020 1 06/05/2021 DM (diabetes mellitus) 09/28/2010 Uncontrolled type 2 diabetes mellitus with hyper glycemia 04/01/2010 06/09/2020 Generalized osteoarthrosis, unspecified site 04/05/2022 Other affections of shoulder region, not elsewhere classified 01/17/2006 01/17/2006 Hereditary and idiopathic peripheral neuropathy 11/17/2005 05/26/2020 Unspecified aftercare 04/29/2005 07/04/2005 Follow-up examination, following unspecified jose bernarda 04/29/2005 07/04/2005 impingement syndrome right shoulder 04/01/2005 07/04/2005 Disorders of bursae and tend ons in shoulder region, unspecified 04/01/2005 07/04/2005 Rheumatoid arthritis(714.0) 06/16 documented as of this encounter (statuses as of 07/20/2022) [facility]21 History of Past illness Narrative* Problem Noted Date Resolved Date Obesity, Class II, BMI 35-39.9 09/14/2020 1 06/05/2021 DM (diabetes mellitus) 09/28/2010 Uncontrolled type 2 diabetes mellitus with hyper glycemia 04/01/2010 06/09/2020 Generalized osteoarthrosis, unspecified site 04/05/2022 Other affections of shoulder region, not elsewhere classified 01/17/2006 01/17/2006 Hereditary and idiopathic peripheral neuropathy 11/17/2005 05/26/2020 Unspecified aftercare 04/29/2005 07/04/2005 Follow-up examination, following unspecified jose bernarda 04/29/2005 07/04/2005 impingement syndrome right shoulder 04/01/2005 07/04/2005 Disorders of bursae and tend ons in shoulder region, unspecified 04/01/2005 07/04/2005 Rheumatoid arthritis(714.0) 06/16 documented as of this encounter (statuses as of 07/28/2022) [facility]21 History of Past illness Narrative* Problem Noted Date Resolved Date Obesity, Class II, BMI 35-39.9 09/14/2020 1 06/05/2021 DM (diabetes mellitus) 09/28/2010 Uncontrolled type 2 diabetes mellitus with hyper glycemia 04/01/2010 06/09/2020 Generalized osteoarthrosis, unspecified site 04/05/2022 Other affections of shoulder region, not elsewhere classified 01/17/2006 01/17/2006 Hereditary and idiopathic peripheral neuropathy 11/17/2005 05/26/2020 Unspecified aftercare 04/29/2005 07/04/2005 Follow-up examination, following unspecified jose bernarda 04/29/2005 07/04/2005 impingement syndrome right shoulder 04/01/2005 07/04/2005 Disorders of bursae and tend ons in shoulder region, unspecified 04/01/2005 07/04/2005 Rheumatoid arthritis(714.0) 06/16 documented as of this encounter (statuses as of 07/28/2022) [facility]21 History of Past illness Narrative* Problem Noted Date Resolved Date Obesity, Class II, BMI 35-39.9 09/14/2020 1 06/05/2021 DM (diabetes mellitus) 09/28/2010 Uncontrolled type 2 diabetes mellitus with hyper glycemia 04/01/2010 06/09/2020 Generalized osteoarthrosis, unspecified site 04/05/2022 Other affections of shoulder region, not elsewhere classified 01/17/2006 01/17/2006 Hereditary and idiopathic peripheral neuropathy 11/17/2005 05/26/2020 Unspecified aftercare 04/29/2005 07/04/2005 Follow-up examination, following unspecified jose bernarda 04/29/2005 07/04/2005 impingement syndrome right shoulder 04/01/2005 07/04/2005 Disorders of bursae and tend ons in shoulder region, unspecified 04/01/2005 07/04/2005 Rheumatoid arthritis(714.0) 06/16 documented as of this encounter (statuses as of 08/10/2022) [facility]21 History of Past illness Narrative* Problem Noted Date Resolved Date Obesity, Class II, BMI 35-39.9 09/14/2020 1 06/05/2021 DM (diabetes mellitus) 09/28/2010 Uncontrolled type 2 diabetes mellitus with hyper glycemia 04/01/2010 06/09/2020 Generalized osteoarthrosis, unspecified site 04/05/2022 Other affections of shoulder region, not elsewhere classified 01/17/2006 01/17/2006 Hereditary and idiopathic peripheral neuropathy 11/17/2005 05/26/2020 Unspecified aftercare 04/29/2005 07/04/2005 Follow-up examination, following unspecified jose bernarda 04/29/2005 07/04/2005 impingement syndrome right shoulder 04/01/2005 07/04/2005 Disorders of bursae and tend ons in shoulder region, unspecified 04/01/2005 07/04/2005 Rheumatoid arthritis(714.0) 06/16 documented as of this encounter (statuses as of 08/16/2022) [facility]21 History of Past illness Narrative* Problem Noted Date Resolved Date Obesity, Class II, BMI 35-39.9 09/14/2020 1 06/05/2021 DM (diabetes mellitus) 09/28/2010 1 Uncontrolled type 2 diabetes mellitus with hyper glycemia 04/01/2010 06/09/2020 Generalized osteoarthrosis, unspecified site 04/05/2022 Other affections of shoulder region, not elsewhere classified 01/17/2006 01/17/2006 Hereditary and idiopathic peripheral neuropathy 11/17/2005 05/26/2020 Unspecified aftercare 04/29/2005 07/04/2005 Follow-up examination, following unspecified jose bernarda 04/29/2005 07/04/2005 impingement syndrome right shoulder 04/01/2005 07/04/2005 Disorders of bursae and tend ons in shoulder region, unspecified 04/01/2005 07/04/2005 Rheumatoid arthritis(714.0) 06/16 documented as of this encounter (statuses as of 09/13/2022) [facility] History of Past illness Narrative* Problem Noted Date Resolved Date Obesity, Class II, BMI 35-39.9 09/14/2020 1 06/05/2021 DM (diabetes mellitus) 09/28/2010 Uncontrolled type 2 diabetes mellitus with hyper glycemia 04/01/2010 06/09/2020 Generalized osteoarthrosis, unspecified site 04/05/2022 Other affections of shoulder region, not elsewhere classified 01/17/2006 01/17/2006 Hereditary and idiopathic peripheral neuropathy 11/17/2005 05/26/2020 Unspecified aftercare 04/29/2005 07/04/2005 Follow-up examination, following unspecified jose bernarda 04/29/2005 07/04/2005 impingement syndrome right shoulder 04/01/2005 07/04/2005 Disorders of bursae and tend ons in shoulder region, unspecified 04/01/2005 07/04/2005 Rheumatoid arthritis(714.0) 06/16 documented as of this encounter (statuses as of 09/15/2022) [facility] History of Past illness Narrative* Problem Noted Date Resolved Date Obesity, Class II, BMI 35-39.9 09/14/2020 1 06/05/2021 DM (diabetes mellitus) 09/28/2010 Uncontrolled type 2 diabetes mellitus with hyper glycemia 04/01/2010 06/09/2020 Generalized osteoarthrosis, unspecified site 04/05/2022 Other affections of shoulder region, not elsewhere classified 01/17/2006 01/17/2006 Hereditary and idiopathic peripheral neuropathy 11/17/2005 05/26/2020 Unspecified aftercare 04/29/2005 07/04/2005 Follow-up examination, following unspecified jose bernarda 04/29/2005 07/04/2005 impingement syndrome right shoulder 04/01/2005 07/04/2005 Disorders of bursae and tend ons in shoulder region, unspecified 04/01/2005 07/04/2005 Rheumatoid arthritis(714.0) 06/16 documented as of this encounter (statuses as of 09/27/2022) [facility]21 History of Past illness Narrative* Problem Noted Date Resolved Date Obesity, Class II, BMI 35-39.9 09/14/2020 1 06/05/2021 DM (diabetes mellitus) 09/28/2010 Uncontrolled type 2 diabetes mellitus with hyper glycemia 04/01/2010 06/09/2020 Generalized osteoarthrosis, unspecified site 04/05/2022 Other affections of shoulder region, not elsewhere classified 01/17/2006 01/17/2006 Hereditary and idiopathic peripheral neuropathy 11/17/2005 05/26/2020 Unspecified aftercare 04/29/2005 07/04/2005 Follow-up examination, following unspecified jose bernarda 04/29/2005 07/04/2005 impingement syndrome right shoulder 04/01/2005 07/04/2005 Disorders of bursae and tend ons in shoulder region, unspecified 04/01/2005 07/04/2005 Rheumatoid arthritis(714.0) 06/16 documented as of this encounter (statuses as of 10/12/2022) [facility]21 History of Past illness Narrative* Problem Noted Date Resolved Date Obesity, Class II, BMI 35-39.9 09/14/2020 1 06/05/2021 DM (diabetes mellitus) 09/28/2010 Uncontrolled type 2 diabetes mellitus with hyper glycemia 04/01/2010 06/09/2020 Generalized osteoarthrosis, unspecified site 04/05/2022 Other affections of shoulder region, not elsewhere classified 01/17/2006 01/17/2006 Hereditary and idiopathic peripheral neuropathy 11/17/2005 05/26/2020 Unspecified aftercare 04/29/2005 07/04/2005 Follow-up examination, following unspecified jose bernarda 04/29/2005 07/04/2005 impingement syndrome right shoulder 04/01/2005 07/04/2005 Disorders of bursae and tend ons in shoulder region, unspecified 04/01/2005 07/04/2005 Rheumatoid arthritis(714.0) 06/16 documented as of this encounter (statuses as of 10/13/2022) [facility] History of Past illness Narrative* Problem Noted Date Resolved Date Obesity, Class II, BMI 35-39.9 09/14/2020 1 06/05/2021 DM (diabetes mellitus) 09/28/2010 Uncontrolled type 2 diabetes mellitus with hyper glycemia 04/01/2010 06/09/2020 Generalized osteoarthrosis, unspecified site 04/05/2022 Other affections of shoulder region, not elsewhere classified 01/17/2006 01/17/2006 Hereditary and idiopathic peripheral neuropathy 11/17/2005 05/26/2020 Unspecified aftercare 04/29/2005 07/04/2005 Follow-up examination, following unspecified jose bernarda 04/29/2005 07/04/2005 impingement syndrome right shoulder 04/01/2005 07/04/2005 Disorders of bursae and tend ons in shoulder region, unspecified 04/01/2005 07/04/2005 Rheumatoid arthritis(714.0) 06/16 documented as of this encounter (statuses as of 10/17/2022) [facility] History of Past illness Narrative* Problem Noted Date Diagnosed Date Resolved Date Obesity, Class II, BMI 35-39.9 09/14/2020 04/05/2022 DM (diabetes mellitus) 09/28/201006/09 Uncontrolled type 2 diabetes mellitus with hyperglycemia 04/01/2010 06/09/2020 Generalized osteoarthrosis, unspecified site 9 04/05/2022 Other affections of shoulder region, not elsewhere classified 01/17/2006 01/17/2006 Hereditary and idiopathic pe ripheral neuropathy 11/17/2005 05/26/2020 Unspecified aftercare 04/29/20052005 Follow-up examination, follo wing unspecified surgery 04/29/2005 07/04/2005 impingement syndrome right shoulder 04/01/2005 07/04/2005 Disorders of bursae and tend ons in shoulder region, unspecified 04/01/2005 07/04/2005 Rheumatoid arthritis(714.0) 07/12/2006 documented as of this encounter (statuses as of 12/02/2022) [facility] History of Past illness Narrative* Problem Noted Date Diagnosed Date Resolved Date Obesity, Class II, BMI 35-39.9 09/14/2020 04/05/2022 DM (diabetes mellitus) 09/28/201006/09 Uncontrolled type 2 diabetes mellitus with hyperglycemia 04/01/2010 06/09/2020 Generalized osteoarthrosis, unspecified site 9 04/05/2022 Other affections of shoulder region, not elsewhere classified 01/17/2006 01/17/2006 Hereditary and idiopathic pe ripheral neuropathy 11/17/2005 05/26/2020 Unspecified aftercare 04/29/20052005 Follow-up examination, follo wing unspecified surgery 04/29/2005 07/04/2005 impingement syndrome right shoulder 04/01/2005 07/04/2005 Disorders of bursae and tend ons in shoulder region, unspecified 04/01/2005 07/04/2005 Rheumatoid arthritis(714.0) 07/12/2006 documented as of this encounter (statuses as of 01/13/2023) [facility] History of Past illness Narrative* Problem Noted Date Diagnosed Date Resolved Date Obesity, Class II, BMI 35-39.9 09/14/2020 04/05/2022 DM (diabetes mellitus) 09/28/201006/09 Uncontrolled type 2 diabetes mellitus with hyperglycemia 04/01/2010 06/09/2020 Generalized osteoarthrosis, unspecified site 9 04/05/2022 Other affections of shoulder region, not elsewhere classified 01/17/2006 01/17/2006 Hereditary and idiopathic pe ripheral neuropathy 11/17/2005 05/26/2020 Unspecified aftercare 04/29/20052005 Follow-up examination, follo wing unspecified surgery 04/29/2005 07/04/2005 impingement syndrome right shoulder 04/01/2005 07/04/2005 Disorders of bursae and tend ons in shoulder region, unspecified 04/01/2005 07/04/2005 Rheumatoid arthritis(714.0) 07/12/2006 documented as of this encounter (statuses as of 01/17/2023) [facility] History of Past illness Narrative* Problem Noted Date Diagnosed Date Resolved Date Obesity, Class II, BMI 35-39.9 09/14/2020 04/05/2022 DM (diabetes mellitus) 09/28/201006/09 Uncontrolled type 2 diabetes mellitus with hyperglycemia 04/01/2010 06/09/2020 Generalized osteoarthrosis, unspecified site 9 04/05/2022 Other affections of shoulder region, not elsewhere classified 01/17/2006 01/17/2006 Hereditary and idiopathic pe ripheral neuropathy 11/17/2005 05/26/2020 Unspecified aftercare 04/29/20052005 Follow-up examination, follo wing unspecified surgery 04/29/2005 07/04/2005 impingement syndrome right shoulder 04/01/2005 07/04/2005 Disorders of bursae and tend ons in shoulder region, unspecified 04/01/2005 07/04/2005 Rheumatoid arthritis(714.0) 07/12/2006 documented as of this encounter (statuses as of 02/04/2023) [facility] History of Past illness Narrative* Problem Noted Date Diagnosed Date Resolved Date Obesity, Class II, BMI 35-39.9 09/14/2020 04/05/2022 DM (diabetes mellitus) 09/28/201006/09 Uncontrolled type 2 diabetes mellitus with hyperglycemia 04/01/2010 06/09/2020 Generalized osteoarthrosis, unspecified site 9 04/05/2022 Other affections of shoulder region, not elsewhere classified 01/17/2006 01/17/2006 Hereditary and idiopathic pe ripheral neuropathy 11/17/2005 05/26/2020 Unspecified aftercare 04/29/20052005 Follow-up examination, follo wing unspecified surgery 04/29/2005 07/04/2005 impingement syndrome right shoulder 04/01/2005 07/04/2005 Disorders of bursae and tend ons in shoulder region, unspecified 04/01/2005 07/04/2005 Rheumatoid arthritis(714.0) 07/12/2006 documented as of this encounter (statuses as of 03/01/2023) [facility] History of Past illness Narrative* Problem Noted Date Diagnosed Date Resolved Date Obesity, Class II, BMI 35-39.9 09/14/2020 04/05/2022 DM (diabetes mellitus) 09/28/201006/09 Uncontrolled type 2 diabetes mellitus with hyperglycemia 04/01/2010 06/09/2020 Generalized osteoarthrosis, unspecified site 9 04/05/2022 Other affections of shoulder region, not elsewhere classified 01/17/2006 01/17/2006 Hereditary and idiopathic pe ripheral neuropathy 11/17/2005 05/26/2020 Unspecified aftercare 04/29/20052005 Follow-up examination, follo wing unspecified surgery 04/29/2005 07/04/2005 impingement syndrome right shoulder 04/01/2005 07/04/2005 Disorders of bursae and tend ons in shoulder region, unspecified 04/01/2005 07/04/2005 Rheumatoid arthritis(714.0) 07/12/2006 documented as of this encounter (statuses as of 03/14/2023) [facility] History of Past illness Narrative* Problem Noted Date Diagnosed Date Resolved Date Obesity, Class II, BMI 35-39.9 09/14/2020 04/05/2022 DM (diabetes mellitus) 09/28/201006/09 Uncontrolled type 2 diabetes mellitus with hyperglycemia 04/01/2010 06/09/2020 Generalized osteoarthrosis, unspecified site 9 04/05/2022 Other affections of shoulder region, not elsewhere classified 01/17/2006 01/17/2006 Hereditary and idiopathic pe ripheral neuropathy 11/17/2005 05/26/2020 Unspecified aftercare 04/29/20052005 Follow-up examination, follo wing unspecified surgery 04/29/2005 07/04/2005 impingement syndrome right shoulder 04/01/2005 07/04/2005 Disorders of bursae and tend ons in shoulder region, unspecified 04/01/2005 07/04/2005 Rheumatoid arthritis(714.0) 07/12/2006 documented as of this encounter (statuses as of 03/19/2023) [facility] History of Past illness Narrative* Problem Noted Date Diagnosed Date Resolved Date Obesity, Class II, BMI 35-39.9 09/14/2020 04/05/2022 DM (diabetes mellitus) 09/28/201006/09 Uncontrolled type 2 diabetes mellitus with hyperglycemia 04/01/2010 06/09/2020 Generalized osteoarthrosis, unspecified site 9 04/05/2022 Other affections of shoulder region, not elsewhere classified 01/17/2006 01/17/2006 Hereditary and idiopathic pe ripheral neuropathy 11/17/2005 05/26/2020 Unspecified aftercare 04/29/20052005 Follow-up examination, follo wing unspecified surgery 04/29/2005 07/04/2005 impingement syndrome right shoulder 04/01/2005 07/04/2005 Disorders of bursae and tend ons in shoulder region, unspecified 04/01/2005 07/04/2005 Rheumatoid arthritis(714.0) 07/12/2006 documented as of this encounter (statuses as of 03/19/2023) [facility] History of Past illness Narrative* Problem Noted Date Diagnosed Date Resolved Date Obesity, Class II, BMI 35-39.9 09/14/2020 04/05/2022 DM (diabetes mellitus) 09/28/201006/09 Uncontrolled type 2 diabetes mellitus with hyperglycemia 04/01/2010 06/09/2020 Generalized osteoarthrosis, unspecified site 200 9 04/05/2022 Other affections of shoulder region, not elsewhere classified 01/17/2006 01/17/2006 Hereditary and idiopathic pe ripheral neuropathy 11/17/2005 05/26/2020 Unspecified aftercare 04/29/20052005 Follow-up examination, follo wing unspecified surgery 04/29/2005 07/04/2005 impingement syndrome right shoulder 04/01/2005 07/04/2005 Disorders of bursae and tend ons in shoulder region, unspecified 04/01/2005 07/04/2005 Rheumatoid arthritis(714.0) 07/12/2006 documented as of this encounter (statuses as of 03/28/2023) [facility] History of Past illness Narrative* Problem Noted Date Diagnosed Date Resolved Date Obesity, Class II, BMI 35-39.9 09/14/2020 04/05/2022 DM (diabetes mellitus) 09/28/201006/09 Uncontrolled type 2 diabetes mellitus with hyperglycemia 04/01/2010 06/09/2020 Generalized osteoarthrosis, unspecified site 9 04/05/2022 Other affections of shoulder region, not elsewhere classified 01/17/2006 01/17/2006 Hereditary and idiopathic pe ripheral neuropathy 11/17/2005 05/26/2020 Unspecified aftercare 04/29/20052005 Follow-up examination, follo wing unspecified surgery 04/29/2005 07/04/2005 impingement syndrome right shoulder 04/01/2005 07/04/2005 Disorders of bursae and tend ons in shoulder region, unspecified 04/01/2005 07/04/2005 Rheumatoid arthritis(714.0) 07/12/2006 documented as of this encounter (statuses as of 07/06/2023) [facility] History of Past illness Narrative* Problem Noted Date Diagnosed Date Resolved Date Obesity, Class II, BMI 35-39.9 09/14/2020 04/05/2022 DM (diabetes mellitus) 09/28/201006/09 Uncontrolled type 2 diabetes mellitus with hyperglycemia 04/01/2010 06/09/2020 Generalized osteoarthrosis, unspecified site 9 04/05/2022 Other affections of shoulder region, not elsewhere classified 01/17/2006 01/17/2006 Hereditary and idiopathic pe ripheral neuropathy 11/17/2005 05/26/2020 Unspecified aftercare 04/29/20052005 Follow-up examination, follo wing unspecified surgery 04/29/2005 07/04/2005 impingement syndrome right shoulder 04/01/2005 07/04/2005 Disorders of bursae and tend ons in shoulder region, unspecified 04/01/2005 07/04/2005 Rheumatoid arthritis(714.0) 07/12/2006 documented as of this encounter (statuses as of 07/21/2023) [facility] History of Past illness Narrative* Problem Noted Date Resolved Date DM (diabetes mellitus) 09/28/2010 1 Uncontrolled type 2 diabetes mellitus with hyper glycemia 04/01/2010 06/09/2020 Other affections of shoulder region, not elsewhere classified 01/17/2006 01/17/2006 Hereditary and idiopathic peripheral neuropathy 11/17/2005 05/26/2020 Unspecified aftercare 04/29/2005 07/04/2005 Follow-up examination, following unspecified jose bernarda 04/29/2005 07/04/2005 impingement syndrome right shoulder 04/01/2005 07/04/2005 Disorders of bursae and tend ons in shoulder region, unspecified 04/01/2005 07/04/2005 Rheumatoid arthritis(714.0) 06/16 documented as of this encounter (statuses as of 08/12/2021) [facility] History of Past illness Narrative* Problem Noted Date Resolved Date DM (diabetes mellitus) 09/28/2010 1 Uncontrolled type 2 diabetes mellitus with hyper glycemia 04/01/2010 06/09/2020 Other affections of shoulder region, not elsewhere classified 01/17/2006 01/17/2006 Hereditary and idiopathic peripheral neuropathy 11/17/2005 05/26/2020 Unspecified aftercare 04/29/2005 07/04/2005 Follow-up examination, following unspecified jose bernarda 04/29/2005 07/04/2005 impingement syndrome right shoulder 04/01/2005 07/04/2005 Disorders of bursae and tend ons in shoulder region, unspecified 04/01/2005 07/04/2005 Rheumatoid arthritis(714.0) 06/16 documented as of this encounter (statuses as of 09/09/2021) [facility] History of Past illness Narrative* Problem Noted Date Resolved Date DM (diabetes mellitus) 09/28/2010 1 Uncontrolled type 2 diabetes mellitus with hyper glycemia 04/01/2010 06/09/2020 Other affections of shoulder region, not elsewhere classified 01/17/2006 01/17/2006 Hereditary and idiopathic peripheral neuropathy 11/17/2005 05/26/2020 Unspecified aftercare 04/29/2005 07/04/2005 Follow-up examination, following unspecified jose bernarda 04/29/2005 07/04/2005 impingement syndrome right shoulder 04/01/2005 07/04/2005 Disorders of bursae and tend ons in shoulder region, unspecified 04/01/2005 07/04/2005 Rheumatoid arthritis(714.0) 06/16 documented as of this encounter (statuses as of 09/10/2021) [facility] History of Past illness Narrative* Problem Noted Date Resolved Date DM (diabetes mellitus) 09/28/2010 1 Uncontrolled type 2 diabetes mellitus with hyper glycemia 04/01/2010 06/09/2020 Other affections of shoulder region, not elsewhere classified 01/17/2006 01/17/2006 Hereditary and idiopathic peripheral neuropathy 11/17/2005 05/26/2020 Unspecified aftercare 04/29/2005 07/04/2005 Follow-up examination, following unspecified jose bernarda 04/29/2005 07/04/2005 impingement syndrome right shoulder 04/01/2005 07/04/2005 Disorders of bursae and tend ons in shoulder region, unspecified 04/01/2005 07/04/2005 Rheumatoid arthritis(714.0) 06/16 documented as of this encounter (statuses as of 09/11/2021) [facility] History of Past illness Narrative* Problem Noted Date Resolved Date DM (diabetes mellitus) 09/28/2010 1 Uncontrolled type 2 diabetes mellitus with hyper glycemia 04/01/2010 06/09/2020 Other affections of shoulder region, not elsewhere classified 01/17/2006 01/17/2006 Hereditary and idiopathic peripheral neuropathy 11/17/2005 05/26/2020 Unspecified aftercare 04/29/2005 07/04/2005 Follow-up examination, following unspecified jose bernarda 04/29/2005 07/04/2005 impingement syndrome right shoulder 04/01/2005 07/04/2005 Disorders of bursae and tend ons in shoulder region, unspecified 04/01/2005 07/04/2005 Rheumatoid arthritis(714.0) 06/16 documented as of this encounter (statuses as of 10/05/2021) [facility] History of Past illness Narrative* Problem Noted Date Resolved Date DM (diabetes mellitus) 09/28/2010 1 Uncontrolled type 2 diabetes mellitus with hyper glycemia 04/01/2010 06/09/2020 Other affections of shoulder region, not elsewhere classified 01/17/2006 01/17/2006 Hereditary and idiopathic peripheral neuropathy 11/17/2005 05/26/2020 Unspecified aftercare 04/29/2005 07/04/2005 Follow-up examination, following unspecified jose bernarda 04/29/2005 07/04/2005 impingement syndrome right shoulder 04/01/2005 07/04/2005 Disorders of bursae and tend ons in shoulder region, unspecified 04/01/2005 07/04/2005 Rheumatoid arthritis(714.0) 06/16 documented as of this encounter (statuses as of 11/05/2021) [facility] History of Past illness Narrative* Problem Noted Date Resolved Date DM (diabetes mellitus) 09/28/2010 1 Uncontrolled type 2 diabetes mellitus with hyper glycemia 04/01/2010 06/09/2020 Other affections of shoulder region, not elsewhere classified 01/17/2006 01/17/2006 Hereditary and idiopathic peripheral neuropathy 11/17/2005 05/26/2020 Unspecified aftercare 04/29/2005 07/04/2005 Follow-up examination, following unspecified jose bernarda 04/29/2005 07/04/2005 impingement syndrome right shoulder 04/01/2005 07/04/2005 Disorders of bursae and tend ons in shoulder region, unspecified 04/01/2005 07/04/2005 Rheumatoid arthritis(714.0) 06/16 documented as of this encounter (statuses as of 11/19/2021) [facility] History of Past illness Narrative* Problem Noted Date Resolved Date DM (diabetes mellitus) 09/28/2010 1 Uncontrolled type 2 diabetes mellitus with hyper glycemia 04/01/2010 06/09/2020 Other affections of shoulder region, not elsewhere classified 01/17/2006 01/17/2006 Hereditary and idiopathic peripheral neuropathy 11/17/2005 05/26/2020 Unspecified aftercare 04/29/2005 07/04/2005 Follow-up examination, following unspecified jose bernarda 04/29/2005 07/04/2005 impingement syndrome right shoulder 04/01/2005 07/04/2005 Disorders of bursae and tend ons in shoulder region, unspecified 04/01/2005 07/04/2005 Rheumatoid arthritis(714.0) 06/16 documented as of this encounter (statuses as of 01/03/2022) [facility] History of Past illness Narrative* Problem Noted Date Resolved Date DM (diabetes mellitus) 09/28/2010 1 Uncontrolled type 2 diabetes mellitus with hyper glycemia 04/01/2010 06/09/2020 Other affections of shoulder region, not elsewhere classified 01/17/2006 01/17/2006 Hereditary and idiopathic peripheral neuropathy 11/17/2005 05/26/2020 Unspecified aftercare 04/29/2005 07/04/2005 Follow-up examination, following unspecified jose bernarda 04/29/2005 07/04/2005 impingement syndrome right shoulder 04/01/2005 07/04/2005 Disorders of bursae and tend ons in shoulder region, unspecified 04/01/2005 07/04/2005 Rheumatoid arthritis(714.0) 06/16 documented as of this encounter (statuses as of 01/19/2022) [facility] History of Past illness Narrative* Problem Noted Date Resolved Date DM (diabetes mellitus) 09/28/2010 1 Uncontrolled type 2 diabetes mellitus with hyper glycemia 04/01/2010 06/09/2020 Other affections of shoulder region, not elsewhere classified 01/17/2006 01/17/2006 Hereditary and idiopathic peripheral neuropathy 11/17/2005 05/26/2020 Unspecified aftercare 04/29/2005 07/04/2005 Follow-up examination, following unspecified jose bernarda 04/29/2005 07/04/2005 impingement syndrome right shoulder 04/01/2005 07/04/2005 Disorders of bursae and tend ons in shoulder region, unspecified 04/01/2005 07/04/2005 Rheumatoid arthritis(714.0) 06/16 documented as of this encounter (statuses as of 01/25/2022) [facility] History of Past illness Narrative* Problem Noted Date Resolved Date DM (diabetes mellitus) 09/28/2010 Uncontrolled type 2 diabetes mellitus with hyper glycemia 04/01/2010 06/09/2020 Other affections of shoulder region, not elsewhere classified 01/17/2006 01/17/2006 Hereditary and idiopathic peripheral neuropathy 11/17/2005 05/26/2020 Unspecified aftercare 04/29/2005 07/04/2005 Follow-up examination, following unspecified jose bernarda 04/29/2005 07/04/2005 impingement syndrome right shoulder 04/01/2005 07/04/2005 Disorders of bursae and tend ons in shoulder region, unspecified 04/01/2005 07/04/2005 Rheumatoid arthritis(714.0) 06/16 documented as of this encounter (statuses as of 03/26/2022) [facility] Mixed hyperlipidemia- Primary Essential hypertension Unspecified essential hypertension Burning with urination Dysuria Controlled type 2 diabetes mellitus without complication, without long-term current use of insulin (HCC) Idiopathic esophageal varices without bleeding (HCC) [facility] Diagnosis Idiopathic esophageal varices without bleeding (HCC) [facility] Diagnosis ESTRELLITA (obstructive sleep apnea)- Primary Obstructive sleep apnea (adult) (pediatric) Chronic insomnia Insomnia, unspecified Obstructive sleep apnea (adult) (pediatric) [facility] Diagnosis Onset Date Resolution Status Diarrhea acute Early satiety acute Esophageal varices acute Fatty liver acute Lower abdominal pain acute [facility] Work Phone: Evaluation note* Diagnosis Obesity, Class I, BMI 30-34.9- Primary Obesity, unspecified Mixed hyperlipidemia Essential hypertension Unspecified essential hypertension Coronary artery disease of [place] heart with stable angina pectoris, unspecified vessel or lesion type (HCC) [facility]* Diagnosis Non-recurrent acute suppurative otitis media of both ears without spontaneous rupture of tympanic membranes- Primary URI, acute Acute upper respiratory infections of unspecified site documented in this encounter [facility] note* Diagnosis Decreased hearing of left ear- Primary Controlled type 2 diabetes mellitus without complication, without long-term current use of insulin (HCC) Mixed hyperlipidemia Essential hypertension Unspecified essential hypertension [facility] Diagnosis Diabetic mononeuropathy associated with diabetes mellitus due to underlying condition (HCC)- Primary Diminished pulses in lower extremity Other symptoms involving cardiovascular system Hallux rigidus of right foot Hallux rigidus documented in this encounter [facility] note* Diagnosis Breast cancer screening by mammogram- Primary Essential hypertension Unspecified essential hypertension Controlled type 2 diabetes mellitus without complication, without long-term current use of insulin (HCC) Multiple skin nodules Localized superficial swelling, mass, or lump Idiopathic esophageal varices without bleeding (HCC) Coronary artery disease of [place] heart with stable angina pectoris, unspecified vessel or lesion type (HCC) Arthropathic psoriasis, unspecified (HCC) [facility]* Diagnosis Multiple skin nodules Localized superficial swelling, mass, or lump [facility]* Diagnosis Onset Date Resolution Status Constipation chronic GERD (gastroesophageal reflux disease) chronic NAFLD (nonalcoholic fatty liver disease) chronic Constipation chronic GERD (gastroesophageal reflux disease) chronic NAFLD (nonalcoholic fatty liver disease) chronic [facility] Work Phone: Evaluation note* Diagnosis Essential hypertension- Primary Unspecified essential hypertension Mixed hyperlipidemia Coronary artery disease of [place] heart with stable angina pectoris, unspecified vessel or lesion type (HCC) 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, unspecified [facility]* Diagnosis Controlled type 2 diabetes mellitus without complication, without long-term current use of insulin (HCC) documented in this encounter [facility] note* Diagnosis Abnormal mammogram- Primary Abnormal mammogram, unspecified Controlled type 2 diabetes mellitus without complication, without long-term current use of insulin (HCC) [facility]* Diagnosis History of colonic polyps- Primary Personal history of colonic polyps Tubular adenoma Benign neoplasm of unspecified site [facility]* Diagnosis Vaginal pain- Primary Unspecified symptom associated with female genital organs Bladder prolapse, female, acquired Cystocele, midline Essential hypertension Unspecified essential hypertension documented in this encounter [facility] note* Diagnosis Vulvar irritation- Primary Other specified noninflammatory disorder of vulva and perineum Vaginal pain Unspecified symptom associated with female genital organs Bladder prolapse, female, acquired Cystocele, midline [facility]* Diagnosis Acute nonintractable headache, unspecified headache type- Primary Chest pain, unspecified type Dyspnea on exertion Other dyspnea and respiratory abnormality Other fatigue Chronic sinusitis, unspecified location Coronary artery disease of [place] heart with stable angina pectoris, unspecified vessel or lesion type ([facility]) Essential hypertension Unspecified essential hypertension Controlled type 2 diabetes mellitus without complication, without long-term current use of insulin ([facility]) [facility]* Diagnosis Acute nonintractable headache, unspecified headache type [facility]* Diagnosis Other chronic pain- Primary Anxiety and depression Dysthymic disorder Migraine with aura and without status migrainosus, not intractable Migraine with aura, without mention of intractable migraine without mention of status migrainosus [facility]* Diagnosis PAD (peripheral artery disease) (HCC)- Primary Peripheral vascular disease, unspecified Essential hypertension Unspecified essential hypertension Mixed hyperlipidemia 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 stable angina pectoris ([facility]) [facility]* Diagnosis Screening for colon cancer- Primary Special screening for malignant neoplasms, colon Special screening for malignant neoplasms, colon [facility]* Diagnosis Breast cancer screening by mammogram [facility]* Diagnosis Abnormal mammogram Abnormal mammogram, unspecified [facility]* Diagnosis Controlled type 2 diabetes mellitus without complication, without long-term current use of insulin (HCC)- Primary Other chronic pain Anxiety and depression Dysthymic disorder Encounter for immunization Need for other specified prophylactic vaccination against single bacterial disease [facility]* Diagnosis Essential hypertension- Primary Unspecified essential hypertension Mixed hyperlipidemia Coronary artery disease of [place] heart with stable angina pectoris, unspecified vessel or lesion type (HCC) Shortness of breath PAD (peripheral artery disease) (HCC) Peripheral vascular disease, unspecified [facility]* Diagnosis Statin intolerance- Primary Other drug allergy Diabetic mononeuropathy associated with diabetes mellitus due to underlying condition (HCC) Idiopathic esophageal varices without bleeding (HCC) Arthropathic psoriasis, unspecified (HCC) PAD (peripheral artery disease) (HCC) Peripheral vascular disease, unspecified Controlled type 2 diabetes mellitus without complication, without long-term current use of insulin (HCC) Gout of big toe Acute gouty arthropathy Vitamin D deficiency Unspecified vitamin D deficiency Vitamin B12 deficiency Other B-complex deficiencies [facility] Diagnosis Coronary artery disease of [place] heart with stable angina pectoris, unspecified vessel or lesion type (HCC) Shortness of breath [facility] Diagnosis Coronary artery disease of [place] heart with stable angina pectoris, unspecified vessel or lesion type (HCC) Shortness of breath [facility] Medicare annual wellness visit, subsequent- Primary Routine general medical examination at a [facility] care facility Idiopathic esophageal varices without bleeding (HCC) Arthropathic psoriasis, unspecified (HCC) PAD (peripheral artery disease) (HCC) Peripheral vascular disease, unspecified Diabetes mellitus type 2 (HCC) Screening for diabetic retinopathy Screening for other eye conditions Weakness of lower extremity, unspecified laterality Weight loss Loss of weight Frailty syndrome in geriatric patient [facility] Diagnosis Weakness of lower extremity, unspecified laterality- Primary Weight loss Loss of weight Frailty syndrome in geriatric patient [facility] Diagnosis Essential hypertension- Primary Unspecified essential hypertension Coronary artery disease involving [place] coronary artery of [place] heart without angina pectoris [facility]* Diagnosis Type 2 diabetes mellitus with diabetic peripheral angiopathy without gangrene, without long-term current use of insulin (HCC)- Primary Idiopathic esophageal varices without bleeding (HCC) Arthropathic psoriasis, unspecified (HCC) Arthritis of carpometacarpal (CMC) joint of left thumb [facility] Diagnosis Arthritis of carpometacarpal (CMC) joint of left thumb [facility] Diagnosis Left hand pain- Primary Pain in limb Pain of right hand Pain in limb [facility] Diagnosis Pain of right hand Pain in limb Primary osteoarthritis of both knees Primary localized osteoarthrosis, lower leg Inguinal pain, unspecified laterality [facility] Diagnosis Trigger thumb of right hand- Primary Trigger finger (acquired) Trigger thumb of right hand Trigger finger (acquired) [facility] Diagnosis Trigger thumb of right hand- Primary Trigger finger (acquired) Primary osteoarthritis of both knees Primary localized osteoarthrosis, lower leg Pain of right hand Pain in limb Primary osteoarthritis of both knees Primary localized osteoarthrosis, lower leg Inguinal pain, unspecified laterality Trigger thumb of right hand Trigger finger (acquired) [facility] Diagnosis Trigger thumb of right hand- Primary Trigger finger (acquired) [facility] Diagnosis Trigger thumb of right hand- Primary Trigger finger (acquired) [facility]* Diagnosis Diabetic polyneuropathy associated with type 2 diabetes mellitus (HCC)- Primary Ingrowing toenail of right foot Ingrowing nail Pain in toe of left foot Pain in limb Pain in toe of right foot Pain in limb [facility]* Diagnosis Eczema intertrigo Other specified erythematous condition [facility]* Diagnosis Type 2 diabetes mellitus with diabetic peripheral angiopathy without gangrene, without long-term current use of insulin (HCC)- Primary Coronary artery disease of [place] heart with stable angina pectoris, unspecified vessel or lesion type Statin intolerance Other drug allergy Mixed hyperlipidemia Essential hypertension Unspecified essential hypertension Gastroesophageal reflux disease without esophagitis Esophageal reflux Fatty (change of) liver, not elsewhere classified Obstructive sleep apnea (adult) (pediatric) documented [facility]* Diagnosis Mixed hyperlipidemia [facility]* Diagnosis Essential hypertension Unspecified essential hypertension [facility] noteNo assessment information availableWSt. [facility] Work Phone: Evaluation note* Diagnosis Mixed hyperlipidemia [facility]* Diagnosis Onset Date Resolution Status Admit Date NAFLD (nonalcoholic fatty liver disease) chronic December 31 10:19am [facility] Work Phone: Evaluation note* Diagnosis Type 2 diabetes mellitus with diabetic peripheral angiopathy without gangrene, without long-term current use of insulin (HCC)- Primary Need for vaccination Need for prophylactic vaccination and inoculation against unspecified single disease Essential hypertension Unspecified essential hypertension Mixed hyperlipidemia Benign breast lumps Fibroadenosis of breast Breast nodule Other (abnormal) findings on radiological examination of breast H/O lumpectomy Other postprocedural status Metabolic dysfunction-associated steatotic liver disease (MASLD) documented in this encounter [facility] for referral (narrative)* Diagnostic Procedure Only (Routine) - Closed Specialty Diagnoses / Procedures Referred By Contac t Referred To Contact US IMAGING Diagnoses Idiopathic esophageal varices without bleeding (HCC) Procedures US ABD RT UPPER QUADRANT US ABDOMINAL REAL TIME W/IMAGE LIMITED Rodrigo Salas MD [address] [place] [address] [facility] Referral ID Status Reason Start Date Expiration Date V isits Requested Visits Authorized [id number] Closed Auto-Generate d Referral 09/09/2021 10/09/[address] [facility] for referral (narrative)* Outpatient Procedure (Routine) - Authorized Specialty Diagnoses / Procedures Referred By Contac t Referred To [facility] Diagnoses Essential hypertension Procedures US RENAL ARTERY [facility] DUP-SCAN ARTL ISIAH ABDL/PEL/SCROT&/RPR ORGN COM Reinaldo Choi MD [address] [place] [address] Fax: [facility] [place] [address] [place] [id number] Referral ID Status Reason Start Date Expiration Date Visits Requested Visits Authorized [id number] Authorized Auto-Generat ed Referral 07/18/2022 07/18/2023 1 1 * Outpatient Procedure (Routine) - Closed Specialty Diagnoses / Procedures Referred By Contac t Referred To [facility] Diagnoses Essential hypertension Mixed hyperlipidemia Coronary artery disease of [place] heart with stable angina pectoris, unspecified vessel or lesion type (HCC) Procedures ECG COMPLETE ECG ROUTINE ECG W/LEAST 12 LDS W/I&R Reinaldo Choi MD [address] [place] [address] Fax: [facility] [place] [address] [place] [address] Referral ID Status Reason Start Date Expiration Date V isits Requested Visits Authorized [id number] Closed Auto-Generate d Referral 07/14/2022 07/14/[address] [facility] for referral (narrative)* Diagnostic Procedure Only (Routine) - Pending Review Specialty Diagnoses / Procedures Referred By Natalya tirado Referred To Contact [facility] Diagnoses Abnormal mammogram Procedures US BREAST LTD LT US BREAST UNI REAL TIME WITH IMAGE LIMITED Rodrigo Salas MD [address] [place] [address] [facility] [address] [place] [phone] Referral ID Status Reason Start Date Expiration Date Visits Requested Visits Authorized [id number] Pending Review Auto-Generat ed Referral 07/23/2022 08/22/2023 1 1 * Diagnostic Procedure Only (Routine) - Authorized Specialty Diagnoses / Procedures Referred By Natalya tirado Referred To Contact [facility] Diagnoses Abnormal mammogram Procedures [facility] DIAGNOSTIC LT DIAGNOSTIC MAMMOGRAPHY COMPUTER-AIDED DETCJ UNI Rodrigo Salas MD [address] [place] [address] [facility] [address] [place] [phone] Referral ID Status Reason Start Date Expiration Date Visits Requested Visits Authorized [id number] Authorized Auto-Generat ed Referral 07/23/2022 08/22/[address] [facility] for referral (narrative)* Outpatient Procedure (Routine) - Closed Specialty Diagnoses / Procedures Referred By Natalya tirado Referred To Contact [facility] Diagnoses Special screening for malignant neoplasms, colon Procedures COLONOSCOPY SCREENING COLONOSCOPY FLX DX W/COLLJ SPEC WHEN PFRMD Miya Morales PA-C [address] [place] [address] [facility] [address] [place] [address] Referral ID Status Reason Start Date Expiration Date V isits Requested Visits Authorized [id number] Closed Auto-Generate d Referral 07/11/2022 07/11/2023 1 1 [facility] for referral (narrative)* Diagnostic Procedure Only (Routine) - Closed Specialty Diagnoses / Procedures Referred By Contac t Referred To Contact BR IMAGING Diagnoses Breast cancer screening by mammogram Procedures PEARL SCREENING SCREENING MAMMOGRAPHY BI 2-VIEW BREAST INC CAD Rodrigo Salas MD [address] [place] [address] Br Imaging [address] [place] [phone] Referral ID Status Reason Start Date Expiration Date V isits Requested Visits Authorized [id number] Closed Auto-Generate d Referral 07/11/2022 08/10/2023 1 1 [facility] for referral (narrative)* Diagnostic Procedure Only (Routine) - Closed Specialty Diagnoses / Procedures Referred By Natalya t Referred To Contact BR [facility] Diagnoses Abnormal mammogram Procedures PEARL DIAGNOSTIC LT DIAGNOSTIC MAMMOGRAPHY COMPUTER-AIDED DETCJ UNI Rodrigo Salas MD [address] [place] [address] Br Imaging [address] [place] [address] Referral ID Status Reason Start Date Expiration Date V isits Requested Visits Authorized [id number] Closed Auto-Generate d Referral 07/23/2022 08/22/2023 1 1 [facility] for referral (narrative)* Diagnostic Procedure Only (Routine) - Authorized Specialty Diagnoses / Procedures Referred By Contac t Referred To Contact [facility] Diagnoses Coronary artery disease of [place] heart with stable angina pectoris, unspecified vessel or lesion type (HCC) Shortness of breath Procedures NM CARDIAC PERF STRESS/PHARM MYOCARDIAL SPECT MULTIPLE STUDIES Reinaldo Choi MD [address] [facility], [address] [place] [address] Molecular [facility] [address] [phone] Referral ID Status Reason Start Date Expiration Date Visits Requested Visits Authorized [id number] Authorized Auto-Generat ed Referral 11/13/2023 12/05/2024 1 1 * Outpatient Procedure (Routine) - Pending Review Specialty Diagnoses / Procedures Referred By Contac t Referred To Contact [facility] Diagnoses Essential hypertension Mixed hyperlipidemia Coronary artery disease of [place] heart with stable angina pectoris, unspecified vessel or lesion type (HCC) Procedures ECG COMPLETE ECG ROUTINE ECG W/LEAST 12 LDS W/I&R Reinaldo Choi MD [address], [address] [place] [address] [facility] [place] [address] [place] [address] Referral ID Status Reason Start Date Expiration Date Visits Requested Visits Authorized [id number] Pending Review Auto-Generat ed Referral 10/31/2023 10/30/[address] [facility] for referral (narrative)* Diagnostic Procedure Only (Routine) - Closed Specialty Diagnoses / Procedures Referred By Contac t Referred To Contact [facility]LECULAR [facility] FUNCTIONAL IMAGING Diagnoses Coronary artery disease of [place] heart with stable angina pectoris, unspecified vessel or lesion type (HCC) Shortness of breath Procedures NM CARDIAC PERF STRESS/PHARM MYOCARDIAL SPECT MULTIPLE STUDIES Reinaldo Choi MD [address], [address] [place] [address] [facility] [address] [phone] Referral ID Status Reason Start Date Expiration Date V isits Requested Visits Authorized [id number] Closed Auto-Generate d Referral 11/13/2023 12/05/[address] [facility] for referral (narrative)* Outpatient Procedure (Routine) - New Request Specialty Diagnoses / Procedures Referred By Contac t Referred To Contact [facility] Diagnoses Essential hypertension Procedures ECG COMPLETE ECG ROUTINE ECG W/LEAST 12 LDS W/I&R Reinaldo Choi MD [address], [address] [place] [address] [facility] [place] [address] [place] [address] Referral ID Status Reason Start Date Expiration Date Visits Requested Visits Authorized [id number] New Request Auto-Generat ed Referral 06/19/2024 06/19/[address] [facility] for referral (narrative)No reason for referral information availableWSt. [facility] Work Phone: Reason for visit Narrative* Diagnostic Procedure Only (Routine) - Closed Specialty Diagnoses / Procedures Referred By Contac t Referred To Contact US IMAGING Diagnoses Idiopathic esophageal varices without bleeding (HCC) Procedures US ABD RT UPPER QUADRANT US ABDOMINAL REAL TIME W/IMAGE LIMITED Rodrigo Salas MD [address] [place] [address] Us Imaging Referral ID Status Reason Start Date Expiration Date V isits Requested Visits Authorized [id number] Closed Auto-Generate d Referral 09/09/2021 10/09/[address] [facility] for visit Narrative* Outpatient Procedure (Routine) - Closed Specialty Diagnoses / Procedures Referred By Contac t Referred To Contact [facility] Diagnoses Special screening for malignant neoplasms, colon Procedures COLONOSCOPY SCREENING COLONOSCOPY FLX DX W/COLLJ SPEC WHEN PFRMD Miya Morales PA-C [address] [facility] [place] [address] [facility] [place] [address] [place] [address] Referral ID Status Reason Start Date Expiration Date V isits Requested Visits Authorized [id number] Closed Auto-Generate d Referral 07/11/2022 07/11/[address] [facility] for visit Narrative* Diagnostic Procedure Only (Routine) - Closed Specialty Diagnoses / Procedures Referred By Contac t Referred To Contact [facility] Diagnoses Breast cancer screening by mammogram Procedures PEARL SCREENING SCREENING MAMMOGRAPHY BI 2-VIEW BREAST INC CAD Rodrigo Salas MD [address] [place] [address] Br Imaging [address] [place] [address] Referral ID Status Reason Start Date Expiration Date V isits Requested Visits Authorized [id number] Closed Auto-Generate d Referral 07/11/2022 08/10/[address] [facility] for visit Narrative* Diagnostic Procedure Only (Routine) - Closed Specialty Diagnoses / Procedures Referred By Contac t Referred To Contact [facility] Diagnoses Abnormal mammogram Procedures PEARL DIAGNOSTIC LT DIAGNOSTIC MAMMOGRAPHY COMPUTER-AIDED DETCJ UNI Rodrigo Salas MD [address] [place] [address] Br Imaging [address] [place] [address] Referral ID Status Reason Start Date Expiration Date V isits Requested Visits Authorized [id number] Closed Auto-Generate d Referral 07/23/2022 08/22/[address] [facility] for visit Narrative* Diagnostic Procedure Only (Routine) - Closed Specialty Diagnoses / Procedures Referred By Contac t Referred To Contact [facility] Diagnoses Coronary artery disease of [place] heart with stable angina pectoris, unspecified vessel or lesion type (HCC) Shortness of breath Procedures NM CARDIAC PERF STRESS/PHARM MYOCARDIAL SPECT MULTIPLE STUDIES Reinaldo Choi MD [address] [facility], [address] [place] [address] Molecular & Functional Imaging [address] [place], [place] [id number] Referral ID Status Reason Start Date Expiration Date V isits Requested Visits Authorized [id number] Closed Auto-Generate d Referral 11/13/2023 12/05/[address] [facility] for visit Narrative* Diagnostic Procedure Only (Routine) - Closed Specialty Diagnoses / Procedures Referred By Margaac t Referred To Contact XR IMAGING Diagnoses Arthritis of carpometacarpal (CMC) joint of left thumb Procedures XR DIGIT GENERAL 3V FRONTAL/LAT/OBL RIGHT RADEX FINGR MINIMUM 2 VIEWS Rodrigo Salas MD [address] [place] [address] Phone: tel: fax: [place] [address] Referral ID Status Reason Start Date Expiration Date V isits Requested Visits Authorized [id number] Closed Auto-Generate d Referral 07/02/2024 08/01/2025 [facility] Procedure Only (Routine) - Closed Specialty Diagnoses / Procedures Referred By Contac t Referred To Contact XR IMAGING Diagnoses Pain of right hand Procedures XR HAND GENERAL 3V PA/LAT/OBL RIGHT RADEX HAND MINIMUM 3 VIEWS Gretchen Garcia PA-C [address] [place] [address] Phone: tel: fax: [place] [address] Referral ID Status Reason Start Date Expiration Date V isits Requested Visits Authorized [id number] Closed Auto-Generate d Referral 08/12/2024 09/11/2025 1 1 [facility] Summary Purpose Family History No Family History Records FoundNo Family History Records FoundNo Family History Records FoundNo Family History Records FoundNo Family History Records Found Advance Directives No Advanced Directives Records FoundDocuments on File Type Date Recorded Patient [employer] Expl anation Advance Directive(s) 09/22/2020 8:39 AM Advance Directive(s) 08/15/2006 12:00 AM Documents on File Type Date Recorded Patient [employer] Expl anation Advance Directive(s) 09/22/2020 8:39 AM Advance Directive(s) 08/15/2006 12:00 AM Advance Directive Response Recorded Date/ Time Name of Medical Power of Pet House Sitter SPOUSE/NINI R November 26, 2021 11:33am Living Will Yes November 26, 2021 11:33am Power of Pet House Sitter Yes November 26 11:33am Documents on File Type Date Recorded Patient [employer] Expl anation Advance Directive(s) 08/15/2006 Documents on File Type Date Recorded Patient [employer] Expl anation Advance Directive(s) 08/15/2006 Advance Directive Response Recorded Date/ Time Living Will Yes November 26, 2021 10:33am Power of Pet House Sitter Yes November 26 10:33am Reason for Referral Specialty Diagnoses / Procedures Referred By Contac t Referred To Contact Diagnoses Idiopathic esophageal varices without bleeding (HCC) Procedures CONSULT TO HEPATOLOGY OFFICE/OUTPATIENT [facility] 60-74 MINUTES Rodrigo Salas MD [address] [place] [address] Referral ID Status Reason Start Date Expiration Date Visits Requested Visits Authorized [id number] Authorized PCP Requested Referral 09/09/2021 09/09/2022 1 1 Specialty Diagnoses / Procedures Referred By Contac t Referred To Contact [facility] IMAGING Diagnoses Idiopathic esophageal varices without bleeding (HCC) Procedures US ABD RT UPPER QUADRANT US ABDOMINAL REAL TIME W/IMAGE LIMITED Rodrigo Salas MD [address] [place] [address] Us Imaging Referral ID Status Reason Start Date Expiration Date Visits Requested Visits Authorized [id number] Authorized Auto-Generat ed Referral 09/09/2021 10/09/2022 1 1 Specialty Diagnoses / Procedures Referred By Contac t Referred To Contact Ent - Otolaryngology Diagnoses Decreased hearing of left ear Procedures CONSULT TO ENT OFFICE/OUTPATIENT [facility] 60-74 MINUTES Rodrigo Salas MD [address] [place] [address] Referral ID Status Reason Start Date Expiration Date Visits Requested Visits Authorized [id number] Authorized PCP Requested Referral 2 04/08/2023 1 1 Specialty Diagnoses / Procedures Referred By Contac t Referred To Contact General Surgery Diagnoses Multiple skin nodules Procedures CONSULT TO GENERAL SURGERY OFFICE/OUTPATIENT [facility] 60-[place] [address] [place] [address] Referral ID Status Reason Start Date Expiration Date V isits Requested Visits Authorized [id number] Closed PCP Requested Referral 07/11/2022 07/11/2023 1 1 Specialty Diagnoses / Procedures Referred By Contac t Referred To Contact BR IMAG[facility] Diagnoses Breast cancer screening by mammogram Procedures PEARL SCREENING SCREENING MAMMOGRAPHY BI 2-[place] [address] [place] [address] Br Imaging [address] [place] [address] Referral ID Status Reason Start Date Expiration Date Visits Requested Visits Authorized [id number] Authorized Auto-Generat ed Referral 07/11/2022 08/10/2023 1 1 Specialty Diagnoses / Procedures Referred By Contac t Referred To Contact Gynecology Diagnoses Vaginal pain Bladder prolapse, female, acquired Procedures CONSULT TO GYNECOLOGY OFFICE/OUTPATIENT NEW HIGH MDM 60-74 MINUTES Rodrigo Salas MD [address] [place] [address] Referral ID Status Reason Start Date Expiration Date Visits Requested Visits Authorized [id number] Authorized PCP Requested Referral Auto-Generate d Referral 10/11/2022 10/11/2023 1 1 Specialty Diagnoses / Procedures Referred By Contac t Referred To Contact Diagnoses Controlled type 2 diabetes mellitus without complication, without long-term current use of insulin (HCC) Deborah Fernandez APRN.CNP [address] [place] [address] Referral ID Status Reason Start Date Expiration Date V isits Requested Visits Authorized [id number] Authorized 05/15/2022 05/14/2023 1 1 Specialty Diagnoses / Procedures Referred By Contac t Referred To Contact Reinaldo Choi MD [address] [facility], [address] [place] [address] Referral ID Status Reason Start Date Expiration Date V isits Requested Visits Authorized [id number] Pending Review 1 1 Specialty Diagnoses / Procedures Referred By Contac t Referred To Contact Rodrigo Salas MD [address] [place] [address] Referral ID Status Reason Start Date Expiration Date Visits Re quested Visits Authorized [id number] Closed 1 1 Specialty Diagnoses / Procedures Referred By Contac t Referred To Contact [facility] Diagnoses Weakness of lower extremity, unspecified laterality Weight loss Frailty syndrome in geriatric patient Procedures CONSULT TO PHYSICAL THERAPY PHYSICAL THERAPY EVALUATION HIGH COMPLEX 45 MINS Rodrigo Salas MD [address] [place] [address] [facility] [place] [address] [place] [address] Referral ID Status Reason Start Date Expiration Date Visits Requested Visits Authorized [id number] Authorized Auto-Generat ed Referral 05/15/2023 05/14/2024 99 99 Chief Complaint and Reason for Visit Chief Complaint Consult E-ORDER LOWER ABD PAIN *ORAL & IV* EARLY SATIETY, N/V, DM, LOWER ABD PAIN FATTY LIVER, ESOPHAGEAL VARICES ON EGD Reason for Visit Diarrhea Early satiety Esophageal varices Fatty liver Lower abdominal pain Chief Complaint Consult E-ORDER LOWER ABD PAIN *ORAL & IV* EARLY SATIETY, N/V, DM, LOWER ABD PAIN FATTY LIVER, ESOPHAGEAL VARICES ON EGD ESOPHAGEAL VARICES Reason for Visit Diarrhea Early satiety Esophageal varices Fatty liver Lower abdominal pain Chief Complaint 3 mo fu 3 MO FU NAFLD Reason for Visit Constipation GERD (gastroesophageal reflux disease) NAFLD (nonalcoholic fatty liver disease) Constipation GERD (gastroesophageal reflux disease) NAFLD (nonalcoholic fatty liver disease) Chief Complaint Admit Date FATTY LIVER December 03, 2024 7:58 am Chief Complaint Admit Date FATTY LIVER December 03, 2024 7:58 am 6 M FU December 31, 2024 10 :19am Reason for Visit Admit Date NAFLD (nonalcoholic fatty liver disease) December 31, 2024 10:19am Chief Complaint Admit Date FATTY LIVER December 03, 2024 7:58 am 6 M FU December 31, 2024 10 :19am E ORDER December 31, 2024 11 :30am Reason for Visit Admit Date GERD (gastroesophageal reflux disease) A ugust 2024 10:19am NAFLD (nonalcoholic fatty liver disease) December 31, 2024 10:19am Health Concerns Infection Onset Date Last Indicated Resolved Time COVID-19 Rule-Out 03/26/2022 03/26/2022 Medications Administered Section Inactive Administered Medications - up to 3 most recent administrations Medication Order MAR Action Action Date Dose Rate Site diphenhydrAMINE 12.5-50 mg injection (BENADRYL) 12.5-50 mg, INTRAVENOUS, DIRECTED, Starting on Mon08/08/22 at 1300, Until Mon08/08/22 at 1659, DOSING DIRECTED BY PHYSICIAN FOR PROCEDURAL SEDATION ONLY, Intraprocedure Given 08/08/2022 12:56 PM EDT 50 mg fentaNYL 50 mcg/mL 25-100 mcg injection (SUBLIMAZE) 25-100 mcg, INTRAVENOUS, DIRECTED, Starting on Mon08/08/22 at 1300, Until Mon08/08/22 at 1659, DOSING DIRECTED BY PHYSICIAN FOR PROCEDURAL SEDATION ONLY, Intraprocedure Given 08/08/2022 12:54 PM EDT 50 mcg lactated ringers iv infusion 30 mL/hr, INTRAVENOUS, CONTINUOUS, Starting on Mon08/08/22 at 1200, Until Mon08/08/22 at 1322, Preprocedure New Bag/Syringe/Bot tle 08/08/2022 12:20 PM EDT 30 mL/hr 30 mL/hr Wrist, Right midazolam 1-5 mg injection (VERSED) 1-5 mg, INTRAVENOUS, DIRECTED, Starting on Mon08/08/22 at 1300, Until Mon08/08/22 at 1659, DOSING DIRECTED BY PHYSICIAN FOR PROCEDURAL SEDATION ONLY, Intraprocedure Given 08/08/2022 12:54 PM EDT 3 mg Additional Source Comments INFORMATION SOURCE (unrecogn ized section and content) DATE CREATED AUTHOR 08/06/2020 [facility] DATE CREATED AUTHOR AUTHOR'S ORGANIZ ATION 08/19/2024 [facility] DATE CREATED AUTHOR AUTHOR'S ORGANIZ ATION 01/07/2025 [facility] DATE CREATED AUTHOR AUTHOR'S ORGANIZ ATION 03/08/2025 [facility] DATE CREATED AUTHOR AUTHOR'S ORGANIZ ATION 03/16/2025 [facility] Source Comments (unrecognize d section and content) In the event this informatio n is protected by the Federal Confidentiality of Alcohol and Drug Abuse Patient Records regulations: The Federal rules restrict any use of the information to criminally investigate or prosecute any alcohol or drug abuse patient.[facility] the event this information is protected by the Federal Confidentiality of Alcohol and Drug Abuse Patient Records regulations: The Federal rules restrict any use of the information to criminally investigate or prosecute any alcohol or drug abuse patient.[facility] the event this information is protected by the Federal Confidentiality of Alcohol and Drug Abuse Patient Records regulations: The Federal rules restrict any use of the information to criminally investigate or prosecute any alcohol or drug abuse patient.[facility] the event this information is protected by the Federal Confidentiality of Alcohol and Drug Abuse Patient Records regulations: The Federal rules restrict any use of the information to criminally investigate or prosecute any alcohol or drug abuse patient.[facility] the event this information is protected by the Federal Confidentiality of Alcohol and Drug Abuse Patient Records regulations: The Federal rules restrict any use of the information to criminally investigate or prosecute any alcohol or drug abuse patient.[facility] the event this information is protected by the Federal Confidentiality of Alcohol and Drug Abuse Patient Records regulations: The Federal rules restrict any use of the information to criminally investigate or prosecute any alcohol or drug abuse patient.[facility] the event this information is protected by the Federal Confidentiality of Alcohol and Drug Abuse Patient Records regulations: The Federal rules restrict any use of the information to criminally investigate or prosecute any alcohol or drug abuse patient.[facility] the event this information is protected by the Federal Confidentiality of Alcohol and Drug Abuse Patient Records regulations: The Federal rules restrict any use of the information to criminally investigate or prosecute any alcohol or drug abuse patient.[facility] the event this information is protected by the Federal Confidentiality of Alcohol and Drug Abuse Patient Records regulations: The Federal rules restrict any use of the information to criminally investigate or prosecute any alcohol or drug abuse patient.[facility] the event this information is protected by the Federal Confidentiality of Alcohol and Drug Abuse Patient Records regulations: The Federal rules restrict any use of the information to criminally investigate or prosecute any alcohol or drug abuse patient.[facility] Center[facility] the event this information is protected by the Federal Confidentiality of Alcohol and Drug Abuse Patient Records regulations: The Federal rules restrict any use of the information to criminally investigate or prosecute any alcohol or drug abuse patient.[facility] the event this information is protected by the Federal Confidentiality of Alcohol and Drug Abuse Patient Records regulations: The Federal rules restrict any use of the information to criminally investigate or prosecute any alcohol or drug abuse patient.[facility] Center[facility] the event this information is protected by the Federal Confidentiality of Alcohol and Drug Abuse Patient Records regulations: The Federal rules restrict any use of the information to criminally investigate or prosecute any alcohol or drug abuse patient.[facility] Center[facility] the event this information is protected by the Federal Confidentiality of Alcohol and Drug Abuse Patient Records regulations: The Federal rules restrict any use of the information to criminally investigate or prosecute any alcohol or drug abuse patient.[facility] CenterIn the event this information is protected by the Federal Confidentiality of Alcohol and Drug Abuse Patient Records regulations: The Federal rules restrict any use of the information to criminally investigate or prosecute any alcohol or drug abuse patient.[facility] Center[facility] the event this information is protected by the Federal Confidentiality of Alcohol and Drug Abuse Patient Records regulations: The Federal rules restrict any use of the information to criminally investigate or prosecute any alcohol or drug abuse patient.[facility] Center[facility] the event this information is protected by the Federal Confidentiality of Alcohol and Drug Abuse Patient Records regulations: The Federal rules restrict any use of the information to criminally investigate or prosecute any alcohol or drug abuse patient.[facility] CenterIn the event this information is protected by the Federal Confidentiality of Alcohol and Drug Abuse Patient Records regulations: The Federal rules restrict any use of the information to criminally investigate or prosecute any alcohol or drug abuse patient.[facility] Center[facility] the event this information is protected by the Federal Confidentiality of Alcohol and Drug Abuse Patient Records regulations: The Federal rules restrict any use of the information to criminally investigate or prosecute any alcohol or drug abuse patient.[facility] CenterIn the event this information is protected by the Federal Confidentiality of Alcohol and Drug Abuse Patient Records regulations: The Federal rules restrict any use of the information to criminally investigate or prosecute any alcohol or drug abuse patient.[facility] the event this information is protected by the Federal Confidentiality of Alcohol and Drug Abuse Patient Records regulations: The Federal rules restrict any use of the information to criminally investigate or prosecute any alcohol or drug abuse patient.[facility] Center[facility] the event this information is protected by the Federal Confidentiality of Alcohol and Drug Abuse Patient Records regulations: The Federal rules restrict any use of the information to criminally investigate or prosecute any alcohol or drug abuse patient.[facility] Center[facility] the event this information is protected by the Federal Confidentiality of Alcohol and Drug Abuse Patient Records regulations: The Federal rules restrict any use of the information to criminally investigate or prosecute any alcohol or drug abuse patient.[facility] CenterIn the event this information is protected by the Federal Confidentiality of Alcohol and Drug Abuse Patient Records regulations: The Federal rules restrict any use of the information to criminally investigate or prosecute any alcohol or drug abuse patient.[facility] CenterIn the event this information is protected by the Federal Confidentiality of Alcohol and Drug Abuse Patient Records regulations: The Federal rules restrict any use of the information to criminally investigate or prosecute any alcohol or drug abuse patient.[facility] CenterIn the event this information is protected by the Federal Confidentiality of Alcohol and Drug Abuse Patient Records regulations: The Federal rules restrict any use of the information to criminally investigate or prosecute any alcohol or drug abuse patient.[facility] CenterIn the event this information is protected by the Federal Confidentiality of Alcohol and Drug Abuse Patient Records regulations: The Federal rules restrict any use of the information to criminally investigate or prosecute any alcohol or drug abuse patient.[facility] CenterIn the event this information is protected by the Federal Confidentiality of Alcohol and Drug Abuse Patient Records regulations: The Federal rules restrict any use of the information to criminally investigate or prosecute any alcohol or drug abuse patient.[facility] CenterIn the event this information is protected by the Federal Confidentiality of Alcohol and Drug Abuse Patient Records regulations: The Federal rules restrict any use of the information to criminally investigate or prosecute any alcohol or drug abuse patient.[facility] CenterIn the event this information is protected by the Federal Confidentiality of Alcohol and Drug Abuse Patient Records regulations: The Federal rules restrict any use of the information to criminally investigate or prosecute any alcohol or drug abuse patient.[facility] CenterIn the event this information is protected by the Federal Confidentiality of Alcohol and Drug Abuse Patient Records regulations: The Federal rules restrict any use of the information to criminally investigate or prosecute any alcohol or drug abuse patient.[facility] CenterIn the event this information is protected by the Federal Confidentiality of Alcohol and Drug Abuse Patient Records regulations: The Federal rules restrict any use of the information to criminally investigate or prosecute any alcohol or drug abuse patient.[facility] CenterIn the event this information is protected by the Federal Confidentiality of Alcohol and Drug Abuse Patient Records regulations: The Federal rules restrict any use of the information to criminally investigate or prosecute any alcohol or drug abuse patient.[facility] CenterIn the event this information is protected by the Federal Confidentiality of Alcohol and Drug Abuse Patient Records regulations: The Federal rules restrict any use of the information to criminally investigate or prosecute any alcohol or drug abuse patient.[facility] CenterIn the event this information is protected by the Federal Confidentiality of Alcohol and Drug Abuse Patient Records regulations: The Federal rules restrict any use of the information to criminally investigate or prosecute any alcohol or drug abuse patient.[facility] CenterIn the event this information is protected by the Federal Confidentiality of Alcohol and Drug Abuse Patient Records regulations: The Federal rules restrict any use of the information to criminally investigate or prosecute any alcohol or drug abuse patient.[facility] CenterIn the event this information is protected by the Federal Confidentiality of Alcohol and Drug Abuse Patient Records regulations: The Federal rules restrict any use of the information to criminally investigate or prosecute any alcohol or drug abuse patient.[facility] CenterIn the event this information is protected by the Federal Confidentiality of Alcohol and Drug Abuse Patient Records regulations: The Federal rules restrict any use of the information to criminally investigate or prosecute any alcohol or drug abuse patient.[facility] CenterIn the event this information is protected by the Federal Confidentiality of Alcohol and Drug Abuse Patient Records regulations: The Federal rules restrict any use of the information to criminally investigate or prosecute any alcohol or drug abuse patient.[facility] CenterIn the event this information is protected by the Federal Confidentiality of Alcohol and Drug Abuse Patient Records regulations: The Federal rules restrict any use of the information to criminally investigate or prosecute any alcohol or drug abuse patient.[facility] CenterIn the event this information is protected by the Federal Confidentiality of Alcohol and Drug Abuse Patient Records regulations: The Federal rules restrict any use of the information to criminally investigate or prosecute any alcohol or drug abuse patient.[facility] CenterIn the event this information is protected by the Federal Confidentiality of Alcohol and Drug Abuse Patient Records regulations: The Federal rules restrict any use of the information to criminally investigate or prosecute any alcohol or drug abuse patient.[facility] CenterIn the event this information is protected by the Federal Confidentiality of Alcohol and Drug Abuse Patient Records regulations: The Federal rules restrict any use of the information to criminally investigate or prosecute any alcohol or drug abuse patient.[facility] CenterIn the event this information is protected by the Federal Confidentiality of Alcohol and Drug Abuse Patient Records regulations: The Federal rules restrict any use of the information to criminally investigate or prosecute any alcohol or drug abuse patient.[facility] CenterIn the event this information is protected by the Federal Confidentiality of Alcohol and Drug Abuse Patient Records regulations: The Federal rules restrict any use of the information to criminally investigate or prosecute any alcohol or drug abuse patient.[facility] CenterIn the event this information is protected by the Federal Confidentiality of Alcohol and Drug Abuse Patient Records regulations: The Federal rules restrict any use of the information to criminally investigate or prosecute any alcohol or drug abuse patient.[facility] CenterIn the event this information is protected by the Federal Confidentiality of Alcohol and Drug Abuse Patient Records regulations: The Federal rules restrict any use of the information to criminally investigate or prosecute any alcohol or drug abuse patient.[facility] CenterIn the event this information is protected by the Federal Confidentiality of Alcohol and Drug Abuse Patient Records regulations: The Federal rules restrict any use of the information to criminally investigate or prosecute any alcohol or drug abuse patient.[facility] CenterIn the event this information is protected by the Federal Confidentiality of Alcohol and Drug Abuse Patient Records regulations: The Federal rules restrict any use of the information to criminally investigate or prosecute any alcohol or drug abuse patient.[facility] CenterIn the event this information is protected by the Federal Confidentiality of Alcohol and Drug Abuse Patient Records regulations: The Federal rules restrict any use of the information to criminally investigate or prosecute any alcohol or drug abuse patient.[facility] CenterIn the event this information is protected by the Federal Confidentiality of Alcohol and Drug Abuse Patient Records regulations: The Federal rules restrict any use of the information to criminally investigate or prosecute any alcohol or drug abuse patient.[facility] CenterIn the event this information is protected by the Federal Confidentiality of Alcohol and Drug Abuse Patient Records regulations: The Federal rules restrict any use of the information to criminally investigate or prosecute any alcohol or drug abuse patient.[facility] CenterIn the event this information is protected by the Federal Confidentiality of Alcohol and Drug Abuse Patient Records regulations: The Federal rules restrict any use of the information to criminally investigate or prosecute any alcohol or drug abuse patient.[facility] CenterIn the event this information is protected by the Federal Confidentiality of Alcohol and Drug Abuse Patient Records regulations: The Federal rules restrict any use of the information to criminally investigate or prosecute any alcohol or drug abuse patient.[facility] CenterIn the event this information is protected by the Federal Confidentiality of Alcohol and Drug Abuse Patient Records regulations: The Federal rules restrict any use of the information to criminally investigate or prosecute any alcohol or drug abuse patient.[facility] CenterIn the event this information is protected by the Federal Confidentiality of Alcohol and Drug Abuse Patient Records regulations: The Federal rules restrict any use of the information to criminally investigate or prosecute any alcohol or drug abuse patient.[facility] CenterIn the event this information is protected by the Federal Confidentiality of Alcohol and Drug Abuse Patient Records regulations: The Federal rules restrict any use of the information to criminally investigate or prosecute any alcohol or drug abuse patient.[facility] CenterIn the event this information is protected by the Federal Confidentiality of Alcohol and Drug Abuse Patient Records regulations: The Federal rules restrict any use of the information to criminally investigate or prosecute any alcohol or drug abuse patient.[facility] CenterIn the event this information is protected by the Federal Confidentiality of Alcohol and Drug Abuse Patient Records regulations: The Federal rules restrict any use of the information to criminally investigate or prosecute any alcohol or drug abuse patient.[facility] CenterIn the event this information is protected by the Federal Confidentiality of Alcohol and Drug Abuse Patient Records regulations: The Federal rules restrict any use of the information to criminally investigate or prosecute any alcohol or drug abuse patient.[facility] CenterIn the event this information is protected by the Federal Confidentiality of Alcohol and Drug Abuse Patient Records regulations: The Federal rules restrict any use of the information to criminally investigate or prosecute any alcohol or drug abuse patient.[facility] CenterIn the event this information is protected by the Federal Confidentiality of Alcohol and Drug Abuse Patient Records regulations: The Federal rules restrict any use of the information to criminally investigate or prosecute any alcohol or drug abuse patient.[facility] CenterIn the event this information is protected by the Federal Confidentiality of Alcohol and Drug Abuse Patient Records regulations: The Federal rules restrict any use of the information to criminally investigate or prosecute any alcohol or drug abuse patient.[facility] CenterIn the event this information is protected by the Federal Confidentiality of Alcohol and Drug Abuse Patient Records regulations: The Federal rules restrict any use of the information to criminally investigate or prosecute any alcohol or drug abuse patient.[facility] CenterIn the event this information is protected by the Federal Confidentiality of Alcohol and Drug Abuse Patient Records regulations: The Federal rules restrict any use of the information to criminally investigate or prosecute any alcohol or drug abuse patient.[facility] CenterIn the event this information is protected by the Federal Confidentiality of Alcohol and Drug Abuse Patient Records regulations: The Federal rules restrict any use of the information to criminally investigate or prosecute any alcohol or drug abuse patient.[facility] CenterIn the event this information is protected by the Federal Confidentiality of Alcohol and Drug Abuse Patient Records regulations: The Federal rules restrict any use of the information to criminally investigate or prosecute any alcohol or drug abuse patient.[facility] CenterIn the event this information is protected by the Federal Confidentiality of Alcohol and Drug Abuse Patient Records regulations: The Federal rules restrict any use of the information to criminally investigate or prosecute any alcohol or drug abuse patient.[facility] CenterIn the event this information is protected by the Federal Confidentiality of Alcohol and Drug Abuse Patient Records regulations: The Federal rules restrict any use of the information to criminally investigate or prosecute any alcohol or drug abuse patient.[facility] CenterIn the event this information is protected by the Federal Confidentiality of Alcohol and Drug Abuse Patient Records regulations: The Federal rules restrict any use of the information to criminally investigate or prosecute any alcohol or drug abuse patient.[facility] CenterIn the event this information is protected by the Federal Confidentiality of Alcohol and Drug Abuse Patient Records regulations: The Federal rules restrict any use of the information to criminally investigate or prosecute any alcohol or drug abuse patient.[facility] CenterIn the event this information is protected by the Federal Confidentiality of Alcohol and Drug Abuse Patient Records regulations: The Federal rules restrict any use of the information to criminally investigate or prosecute any alcohol or drug abuse patient.[facility] CenterIn the event this information is protected by the Federal Confidentiality of Alcohol and Drug Abuse Patient Records regulations: The Federal rules restrict any use of the information to criminally investigate or prosecute any alcohol or drug abuse patient.[facility] CenterIn the event this information is protected by the Federal Confidentiality of Alcohol and Drug Abuse Patient Records regulations: The Federal rules restrict any use of the information to criminally investigate or prosecute any alcohol or drug abuse patient.[facility] CenterIn the event this information is protected by the Federal Confidentiality of Alcohol and Drug Abuse Patient Records regulations: The Federal rules restrict any use of the information to criminally investigate or prosecute any alcohol or drug abuse patient.[facility] CenterIn the event this information is protected by the Federal Confidentiality of Alcohol and Drug Abuse Patient Records regulations: The Federal rules restrict any use of the information to criminally investigate or prosecute any alcohol or drug abuse patient.[facility] CenterIn the event this information is protected by the Federal Confidentiality of Alcohol and Drug Abuse Patient Records regulations: The Federal rules restrict any use of the information to criminally investigate or prosecute any alcohol or drug abuse patient.[facility] CenterIn the event this information is protected by the Federal Confidentiality of Alcohol and Drug Abuse Patient Records regulations: The Federal rules restrict any use of the information to criminally investigate or prosecute any alcohol or drug abuse patient.[facility] CenterIn the event this information is protected by the Federal Confidentiality of Alcohol and Drug Abuse Patient Records regulations: The Federal rules restrict any use of the information to criminally investigate or prosecute any alcohol or drug abuse patient.[facility] CenterIn the event this information is protected by the Federal Confidentiality of Alcohol and Drug Abuse Patient Records regulations: The Federal rules restrict any use of the information to criminally investigate or prosecute any alcohol or drug abuse patient.[facility] CenterIn the event this information is protected by the Federal Confidentiality of Alcohol and Drug Abuse Patient Records regulations: The Federal rules restrict any use of the information to criminally investigate or prosecute any alcohol or drug abuse patient.[facility] CenterIn the event this information is protected by the Federal Confidentiality of Alcohol and Drug Abuse Patient Records regulations: The Federal rules restrict any use of the information to criminally investigate or prosecute any alcohol or drug abuse patient.[facility] CenterIn the event this information is protected by the Federal Confidentiality of Alcohol and Drug Abuse Patient Records regulations: The Federal rules restrict any use of the information to criminally investigate or prosecute any alcohol or drug abuse patient.[facility] Reason for Visit (unrecogniz ed section and content) Reason Comments Follow Up Specialty Diagnoses / Procedures Referred By Natalya tirado Referred To Contact Cardiology / [facility] Diagnoses Encounter for follow-up examination after completed treatment for conditions other than malignant neoplasm 6 month follow up Procedures OFFICE/OUTPATIENT ESTABLISHED SF MDM 10-19 MIN OFFICE/OUTPATIENT ESTABLISHED LOW MDM 20-29 MIN OFFICE/OUTPATIENT ESTABLISHED MOD MDM 30-39 MIN OFFICE/OUTPATIENT ESTABLISHED HIGH MDM 40-54 MIN EST PATIENT Reinaldo Choi MD [address] [place] [address] Reinaldo Choi MD [address] [place] [address] Referral ID Status Reason Start Date Expiration Date V isits Requested Visits Authorized [id number] Authorized 06/30/2022 05/14/2023 1 99 Reason Comments Medication Problem Insurance Authorization Reason Comments Recheck 2 month Complaint of dizziness x2 days Reason Comments Results Reason Comments Established Sleep Adult Sleep study foll ow up Reason Onset Date Comments Refill Request 11/04/2021 Reason Onset Date Comments Opened In Error 11/01/2021 Reason Comments Follow Up Reason Comments CPAP Supplies Reason Comments Ear Pain R ear pain, ST, ches t congestion, sinus drainage x2 days Reason Comments Recheck refill ozempic and c /o left ear hearing loss Reason Comments Patient Update Reason Comments Established Patient Follow Up Diabetic Foot Care Specialty Diagnoses / Procedures Referred By Natalya t Referred To Contact Podiatry / PODIATRY Diagnoses 1 year follow up diabetic foot exam Procedures OFFICE/OUTPATIENT ESTABLISHED MOD MDM 30-39 MIN LUIS EST PODI DIAB Liudmila Norris [address] [address] Myrna Liudmila [address] [facility] [place] [address] Referral ID Status Reason Start Date Expiration Date Visits Re quested Visits Authorized [id number] Closed 05/19/2022 05/14/2023 1 1 Reason Comments Consult Multiple skin nodule s on bilateral breast Specialty Diagnoses / Procedures Referred By Contac t Referred To Contact General Surgery Diagnoses Multiple skin nodules Procedures CONSULT TO GENERAL SURGERY OFFICE/OUTPATIENT NEW HIGH MDM 60-74 MINUTES Rodrigo Salas MD [address] [place] [address] Referral ID Status Reason Start Date Expiration Date V isits Requested Visits Authorized [id number] Closed PCP Requested Referral 07/11/2022 07/11/2023 1 1 Reason Onset Date Comments Refill Request 07/16/2022 Reason Comments Mammogram Result Call Back Reason Comments Refill Request Reason Comments Consult colonoscopy Specialty Diagnoses / Procedures Referred By Contac t Referred To Contact General Surgery / GENERAL SURGERY Diagnoses Encounter for follow-up examination after completed treatment for conditions other than malignant neoplasm 08-08.. colonoscopy follow up Procedures OFFICE/OUTPATIENT ESTABLISHED SF MDM 10-19 MIN OFFICE/OUTPATIENT ESTABLISHED LOW MDM 20-29 MIN OFFICE/OUTPATIENT ESTABLISHED MOD MDM 30-39 MIN OFFICE/OUTPATIENT ESTABLISHED HIGH MDM 40-54 MIN EST DDI PATIENT Carmen Moody MD [address] [place] [address] Miya Morales PA-C [address] [facility] [place] [address] Referral ID Status Reason Start Date Expiration Date V isits Requested Visits Authorized [id number] Authorized 08/09/2022 05/14/2023 1 99 Reason Onset Date Comments Refill Request 09/13/2022 Reason Comments Med Change Request Reason Comments F/U HTN 3 Month question about bp me d and allergy issues needs meds Reason Comments Vaginal Problem States Bladder Prola pse Specialty Diagnoses / Procedures Referred By Contac t Referred To Contact Gynecology Diagnoses Vaginal pain Bladder prolapse, female, acquired Procedures CONSULT TO GYNECOLOGY OFFICE/OUTPATIENT NEW HIGH MDM 60-74 MINUTES Rodrigo Salas MD [address] [place] [address] Referral ID Status Reason Start Date Expiration Date V isits Requested Visits Authorized [id number] Closed PCP Requested Referral Auto-Generated Referral 10/11/2022 10/11/2023 1 1 Reason Comments Recheck 3 month follow up Reason Comments Follow Up 6 week Reason Comments Established Patient Follow-Up Specialty Diagnoses / Procedures Referred By Contac t Referred To Contact Cardiology / [facility] Diagnoses 6 month follow up Procedures EST PATIENT Reinaldo Choi MD [address] [place] [address] Reinaldo Choi MD [address] [place] [address] Referral ID Status Reason Start Date Expiration Date Visits Re quested Visits Authorized [id number] Closed 03/13/2023 05/14/2023 1 1 Reason Comments Follow Up Fibro & depression- didn't start Cymbalta Reason Comments Appointment Patient Update Reason Comments Orders Specialty Diagnoses / Procedures Referred By Contac t Referred To Contact Cardiology / [facility] Diagnoses Follow-up examination 6 month follow up Procedures OFFICE/OUTPATIENT ESTABLISHED HIGH MDM 40 MIN EST PATIENT Rodrigo Salas MD [address] [place] [address] Reinaldo Choi MD [address], [address] [place] [address] Referral ID Status Reason Start Date Expiration Date Visits Re quested Visits Authorized [id number] Closed 10/04/2023 05/14/2024 1 1 Reason Comments Patient Update Medication change Reason Onset Date Comments Refill Request 11/28/2023 Reason Comments 6 mo follow up Reason Comments Guinea Pig Breeder - Other ODILON Zamora Reason Comments Radiology NM Specialty Diagnoses / Procedures Referred By Contac t Referred To Contact MOLECULAR & FUNCTIONAL IMAGING Diagnoses Coronary artery disease of [place] heart with stable angina pectoris, unspecified vessel or lesion type (HCC) Shortness of breath Procedures NM CARDIAC PERF STRESS/PHARM MYOCARDIAL SPECT MULTIPLE STUDIES Reinaldo Choi MD [address], [address] [place] [address] Molecular & Functional [facility] [address] [id number] Referral ID Status Reason Start Date Expiration Date V isits Requested Visits Authorized [id number] Closed Auto-Generate d Referral 11/13/2023 12/05/2024 1 1 Reason Comments Cardiac Clearance Reason Onset Date Comments Refill Request 02/12/2024 Reason Comments Patient Assistance Reason Comments medication clarification Reason Comments ozempic Medication assistanc e Reason Comments Recheck Reason Comments Orders Isabela nordisk patient assistance Reason Comments PT Eval Specialty Diagnoses / Procedures Referred By Natalya tirado Referred To Contact [facility] Diagnoses Weakness of lower extremity, unspecified laterality Weight loss Frailty syndrome in geriatric patient Procedures CONSULT TO PHYSICAL THERAPY PHYSICAL THERAPY EVALUATION HIGH COMPLEX 45 MINS Rodrigo Salas MD [address] [place] [address] [facility] [place] [address] [place] [address] Referral ID Status Reason Start Date Expiration Date Visits Requested Visits Authorized [id number] Authorized Auto-Generat ed Referral 05/15/2023 05/14/2024 99 99 Reason Comments New Patient Evaluation Hypertension Specialty Diagnoses / Procedures [facility]erred By [facility] Referred To Contact Cardiology / CARDIOLOGY Diagnoses Essential (primary) hypertension SOB (shortness of breath) Ref; self, Dx; Essential hypertension sab Procedures OFFICE/OUTPATIENT NEW MODERATE MDM 45 MINUTES OFFICE/OUTPATIENT ESTABLISHED MOD MDM 30 MIN NEW PATIENT Rodrigo Salas MD [address] [place] [address] Reinaldo Choi MD [address], [address] [place] [address] Referral ID Status Reason Start Date Expiration Date V isits Requested Visits Authorized [id number] Authorized 06/06/2024 05/14/2025 99 99 Reason Comments Schedule Surgery Reason Comments New Pain Specialty Diagnoses / Procedures Referred By Natalya tirado Referred To Contact Orthopedics Diagnoses Arthritis of carpometacarpal (CMC) joint of left thumb Procedures CONSULT TO ORTHOPAEDICS OFFICE/OUTPATIENT NEW HIGH MDM 60 MINUTES Rodrigo Salas MD [address] [place] [address] Phone: tel: fax: Outpatient Referral [address] [place] [address] Referral ID Status Reason Start Date Expiration Date V isits Requested Visits Authorized [id number] Closed PCP Requested Referral 07/02/2024 07/02/2025 1 1 Reason Comments Established Patient Post Op Reason Comments Post Op Reason Comments Established Patient Follow Up Diabetic Foot Check Specialty Diagnoses / Procedures Referred By Natalya tirado Referred To Contact Podiatry / PODIATRY Diagnoses Encounter for follow-up examination after completed treatment for conditions other than malignant neoplasm 1 yr diabetic foot care f/u Procedures OFFICE/OUTPATIENT ESTABLISHED HIGH MDM 40 MIN LUIS EST PODI Liudmila Norris [address] [place] [address] Phone: tel: fax: Liudmila Norris [address] [place] [address] Phone: tel: fax: Referral ID Status Reason Start Date Expiration Date V isits Requested Visits Authorized [id number] Closed Financial Clearance Required - OON Payor 09/27/2024 05/14/2025 1 1 Reason Onset Date Comments Refill Request 10/18/2024 Reason Comments 4 month follow up Reason Comments Insurance Authorization Reason Comments Appointment Reason Onset Date Comments Refill Request 12/02/2024 Reason Comments Pharmacy Call Reason Comments Medicare Wellness Exam Care Teams (unrecognized sec tion and content) Terrazzo Mechanic Helper Relationship Specialty Start Date End Date Rodrigo Salas MD [address] [place] [address] PCP - General Internal Medicine 06/01/20 Terrazzo Mechanic Helper Relationship Specialty Start Date End Date Rodrigo Salas MD [address] [facility] [place] [address] PCP - General Internal Medicine 06/01/20 Terrazzo Mechanic Helper Relationship Specialty Start Date End Date Rodrigo Salas MD [address] [facility] [place] [address] PCP - General Internal Medicine 06/01/20 Terrazzo Mechanic Helper Relationship Specialty Start Date End Date Rodrigo Salas MD [address] [facility] [place] [address] PCP - General Internal Medicine 06/01/20 Terrazzo Mechanic Helper Relationship Specialty Start Date End Date Rodrigo Salas MD [address] [facility] [place] [address] PCP - General Internal Medicine 06/01/20 Terrazzo Mechanic Helper Relationship Specialty Start Date End Date Rodrigo Salas MD [address] [facility] [place] [address] PCP - General Internal Medicine 06/01/20 Terrazzo Mechanic Helper Relationship Specialty Start Date End Date Rodrigo Salas MD [address] [facility] [place] [address] PCP - General Internal Medicine 06/01/20 Terrazzo Mechanic Helper Relationship Specialty Start Date End Date Rodrigo Salas MD [address] [facility] [place] [address] PCP - General Internal Medicine 06/01/20 Terrazzo Mechanic Helper Relationship Specialty Start Date End Date Rodrigo Salas MD [address] [facility] [place] [address] PCP - General Internal Medicine 06/01/20 Terrazzo Mechanic Helper Relationship Specialty Start Date End Date Rodrigo Salas MD [address] [facility] [place] [address] PCP - General Internal Medicine 06/01/20 Terrazzo Mechanic Helper Relationship Specialty Start Date End Date Rodrigo Salas MD [address] [facility] [place] [address] PCP - General Internal Medicine 06/01/20 Terrazzo Mechanic Helper Relationship Specialty Start Date End Date Rodrigo Salas MD [address] [facility] [place] [address] PCP - General Internal Medicine 06/01/20 Terrazzo Mechanic Helper Relationship Specialty Start Date End Date Rodrigo Salas MD [address] [facility] [place] [address] PCP - General Internal Medicine 06/01/20 Terrazzo Mechanic Helper Relationship Specialty Start Date End Date Rodrigo Salas MD [address] [facility] [place] [address] PCP - General Internal Medicine 06/01/20 Team Status: Active Member Role Status Dates Dr. Rodrigo Salas MD Primary Care Provider Active Team Status: Inactive Member Role Status Dates Dr. Rodrigo Salas MD Primary Care Provider, Referring Provider Active Mallory Delgado PROGRAM SCHEDULE CLERK, PROGRAM SCHEDULE CLERK-C Attending Provider Active Team Status: Inactive Member Role Status Dates Dr. Rodrigo Salas MD Primary Care Provider Active Mallory Delgado PROGRAM SCHEDULE CLERK, PROGRAM SCHEDULE CLERK-C Attending Provider, Referrin g Provider Active Terrazzo Mechanic Helper Relationship Specialty Start Date End Date Rodrigo Salas MD [address] [facility] [place] [address] PCP - General Internal Medicine 06/01/20 Terrazzo Mechanic Helper Relationship Specialty Start Date End Date Rodrigo Salas MD [address] [facility] [place] [address] PCP - General Internal Medicine 06/01/20 Terrazzo Mechanic Helper Relationship Specialty Start Date End Date Rodrigo Salas MD [address] [facility] [place] [address] PCP - General Internal Medicine 06/01/20 Terrazzo Mechanic Helper Relationship Specialty Start Date End Date Rodrigo Salas MD [address] [facility] [place] [address] PCP - General Internal Medicine 06/01/20 Terrazzo Mechanic Helper Relationship Specialty Start Date End Date Rodrigo Salas MD [address] [place] [address] PCP - General Internal Medicine 06/01/20 Terrazzo Mechanic Helper Relationship Specialty Start Date End Date Rodrigo Salas MD [address] [place] [address] PCP - General Internal Medicine 06/01/20 Terrazzo Mechanic Helper Relationship Specialty Start Date End Date Rodrigo Salas MD [address] [place] [address] PCP - General Internal Medicine 06/01/20 Terrazzo Mechanic Helper Relationship Specialty Start Date End Date Rodrigo Salas MD [address] [place] [address] PCP - General Internal Medicine 06/01/20 Terrazzo Mechanic Helper Relationship Specialty Start Date End Date Rodrigo Salas MD [address] [place] [address] PCP - General Internal Medicine 06/01/20 Terrazzo Mechanic Helper Relationship Specialty Start Date End Date Rodrigo Salas MD [address] [place] [address] PCP - General Internal Medicine 06/01/20 Terrazzo Mechanic Helper Relationship Specialty Start Date End Date Rodrigo Salas MD [address] [place] [address] PCP - General Internal Medicine 06/01/20 Terrazzo Mechanic Helper Relationship Specialty Start Date End Date Rodrigo Salas MD [address] [place] [address] PCP - General Internal Medicine 06/01/20 Terrazzo Mechanic Helper Relationship Specialty Start Date End Date Rodrigo Salas MD [address] [place] [address] PCP - General Internal Medicine 06/01/20 Terrazzo Mechanic Helper Relationship Specialty Start Date End Date Rodrigo Salas MD [address] [place] [address] PCP - General Internal Medicine 06/01/20 Terrazzo Mechanic Helper Relationship Specialty Start Date End Date Rodrigo Salas MD [address] [place] [address] PCP - General Internal Medicine 06/01/20 Terrazzo Mechanic Helper Relationship Specialty Start Date End Date Rodrigo Salas MD [address] [place] [address] PCP - General Internal Medicine 06/01/20 Terrazzo Mechanic Helper Relationship Specialty Start Date End Date Rodrigo Salas MD [address] [place] [address] PCP - General Internal Medicine 06/01/20 Terrazzo Mechanic Helper Relationship Specialty Start Date End Date Rodrigo Salas MD [address] [place] [address] PCP - General Internal Medicine 06/01/20 Terrazzo Mechanic Helper Relationship Specialty Start Date End Date Rodrigo Salas MD [address] [place] [address] PCP - General Internal Medicine 06/01/20 Terrazzo Mechanic Helper Relationship Specialty Start Date End Date Rodrigo Salas MD [address] [facility] [place] [address] PCP - General Internal Medicine 06/01/20 Terrazzo Mechanic Helper Relationship Specialty Start Date End Date Rodrigo Salas MD [address] [facility] [place] [address] PCP - General Internal Medicine 06/01/20 Terrazzo Mechanic Helper Relationship Specialty Start Date End Date Rodrigo Salas MD [address] [facility] [place] [address] PCP - General Internal Medicine 06/01/20 Terrazzo Mechanic Helper Relationship Specialty Start Date End Date Rodrigo Salas MD [address] [facility] [place] [address] PCP - General Internal Medicine 06/01/20 Terrazzo Mechanic Helper Relationship Specialty Start Date End Date Rodrigo Salas MD [address] [facility] [place] [address] PCP - General Internal Medicine 06/01/20 Terrazzo Mechanic Helper Relationship Specialty Start Date End Date Rodrigo Salas MD [address] [facility] [place] [address] PCP - General Internal Medicine 06/01/20 Terrazzo Mechanic Helper Relationship Specialty Start Date End Date Rodrigo Salas MD [address] [facility] [place] [address] PCP - General Internal Medicine 06/01/20 Terrazzo Mechanic Helper Relationship Specialty Start Date End Date Rodrigo Salas MD [address] [facility] [place] [address] PCP - General Internal Medicine 06/01/20 Terrazzo Mechanic Helper Relationship Specialty Start Date End Date Rodrigo Salas MD [address] [facility] [place] [address] PCP - General Internal Medicine 06/01/20 Janet Brown PA-C [address] [place] [address] Case Therapist Family Medicine 04/21/24 Deborah Fernandez APRN.WALL CRANE OPERATOR [address] [place] [address] Case Therapist Internal Medicine 04/21/24 Shannon Sanchez PA-C [address] [facility] [place] [address] Case Therapist Family Medicine 04/21/24 Terrazzo Mechanic Helper Relationship Specialty Start Date End Date Rodrigo Salas MD [address] [facility] [place] [address] PCP - General Internal Medicine 06/01/20 Janet Brown PA-C [address] [place] [id number] Case Therapist Family Medicine 04/21/24 Deborah Fernandez APRN.WALL CRANE OPERATOR [address] [place] [address] Case Therapist Internal Medicine 04/21/24 Shannon Sanchez PA-C [address] [facility] [place] [address] Case Therapist Family Medicine 04/21/24 Terrazzo Mechanic Helper Relationship Specialty Start Date End Date Rodrigo Salas MD [address] [facility] [place] [address] PCP - General Internal Medicine 06/01/20 Janet Brown PA-C [address] [place] [address] Case Therapist Family Medicine 04/21/24 Deborah Fernandez APRN.WALL CRANE OPERATOR [address] [place] [address] Case Therapist Internal Medicine 04/21/24 Shannon Sanchez PA-C [address] [place] [address] Case Therapist Family Medicine 04/21/24 Terrazzo Mechanic Helper Relationship Specialty Start Date End Date Rodrigo Salas MD [address] [place] [address] PCP - General Internal Medicine 06/01/20 Janet Brown PA-C [address] [place] [address] Case Therapist Family Medicine 04/21/24 Deborah Fernandez APRN.WALL CRANE OPERATOR [address] [place] [address] Case Therapist Internal Medicine 04/21/24 Shannon Sanchez PA-C [address] [place] [address] Case Therapist Family Medicine 04/21/24 Terrazzo Mechanic Helper Relationship Specialty Start Date End Date Rodrigo Salas MD [address] [place] [address] PCP - General Internal Medicine 06/01/20 Janet Brown PA-C [address] [place] [address] Case Therapist Family Medicine 04/21/24 08/04/24 Deborah Fernandez APRN.WALL CRANE OPERATOR [address] [place] [address] Case Therapist Internal Medicine 04/21/24 Shannon Sanchez PA-C [address] [place] [address] [facility] Family Medicine 04/21/24 08/04/24 Terrazzo Mechanic Helper Relationship Specialty Start Date End Date Rodrigo Salas MD [address] [place] [address] PCP - General Internal Medicine 06/01/20 Deborah Fernandez APRN.WALL CRANE OPERATOR [address] [place] [address] [facility] Internal Medicine 04/21/24 Terrazzo Mechanic Helper Relationship Specialty Start Date End Date Rodrigo Salas MD [address] [place] [address] PCP - General Internal Medicine 06/01/20 Deborah Fernandez APRN.WALL CRANE OPERATOR [address] [place] [address] [facility] Internal Medicine 04/21/24 Terrazzo Mechanic Helper Relationship Specialty Start Date End Date Rodrigo Salas MD [address] [place] [address] PCP - General Internal Medicine 06/01/20 Deborah Fernandez APRN.WALL CRANE OPERATOR [address] [place] [address] Case Therapist Internal Medicine 04/21/24 Terrazzo Mechanic Helper Relationship Specialty Start Date End Date Rodrigo Salas MD [address] [facility] [place] [address] PCP - General Internal Medicine 06/01/20 Deborah Fernandez APRN.WALL CRANE OPERATOR [address] [place] [address] Case Therapist Internal Medicine 04/21/24 Terrazzo Mechanic Helper Relationship Specialty Start Date End Date Rodrigo Salas MD [address] [facility] [place] [address] PCP - General Internal Medicine 06/01/20 Deborah Fernandez APRN.WALL CRANE OPERATOR [address] [place] [address] Case Therapist Internal Medicine 04/21/24 Terrazzo Mechanic Helper Relationship Specialty Start Date End Date Rodrigo Salas MD [address] [facility] [place] [address] PCP - General Internal Medicine 06/01/20 Deborah Fernandez APRN.WALL CRANE OPERATOR [address] [place] [address] Case Therapist Internal Medicine 04/21/24 Terrazzo Mechanic Helper Relationship Specialty Start Date End Date Rodrigo Salas MD [address] [facility] [place] [address] PCP - General Internal Medicine 06/01/20 Deborah Fernandez APRN.WALL CRANE OPERATOR [address] [place] [address] Case Therapist Internal Medicine 04/21/24 Terrazzo Mechanic Helper Relationship Specialty Start Date End Date Rodrigo Salas MD [address] [place] [address] PCP - General Internal Medicine 06/01/20 Deborah Fernanedz APRN.WALL CRANE OPERATOR [address] [place] [address] Case Therapist Internal Medicine 04/21/24 Terrazzo Mechanic Helper Relationship Specialty Start Date End Date Rodrigo Salas MD [address] [place] [address] PCP - General Internal Medicine 06/01/20 Deborah Fernandez APRN.WALL CRANE OPERATOR [address] [place] [address] Case Therapist Internal Medicine 04/21/24 Terrazzo Mechanic Helper Relationship Specialty Start Date End Date Rodrigo Salas MD [address] [place] [address] PCP - General Internal Medicine 06/01/20 Deborah Fernandez APRN.WALL CRANE OPERATOR [address] [place] [address] Case Therapist Internal Medicine 04/21/24 Team Status: Active Member Role/Relationship Status Dates Dr. Rodrigo Salas MD Primary Care Provider Active Team Status: Inactive Member Role/Relationship Status Dates Dr. Rodrigo Salas MD Primary Care Provider Active Start: December 03, 2024 End: December 03, 2024 ODILON Ross Attending Provider Active Start: December 03, 2024 End: December 03, 2024 ODILON Ross Referring Provider Active Start: December 03, 2024 End: December 03, 2024 Team Status: Inactive Member Role/Relationship Status Dates Dr. Rodrigo Salas MD Primary Care Provider Active Start: December 31, 2024 End: December 31, 2024 Dr. Rodrigo Salas MD Referring Provider Active Start: December 31, 2024 End: December 31, 2024 ODILON Ross Attending Provider Active Start: December 31, 2024 End: December 31, 2024 Team Status: Inactive Member Role/Relationship Status Dates Dr. Rodrigo Salas MD Primary Care Provider Active Start: December 31, 2024 End: December 31, 2024 ODILON Ross Attending Provider Active Start: December 31, 2024 End: December 31, 2024 ODILON Ross Referring Provider Active Start: December 31, 2024 End: December 31, 2024 Terrazzo Mechanic Helper Relationship Specialty Start Date End Date Rodrigo Salas MD [address] [place] [address] PCP - General Internal Medicine 06/01/20 Deborah Fernandez APRN.WALL CRANE OPERATOR [address] [place], [place] [address] Case Therapist Internal Medicine 04/21/24 Goals (unrecognized section and content) Goals may be documented in a n alternate sectionGoals may be documented in an alternate sectionGoals may be documented in an alternate sectionGoals may be documented in an alternate sectionGoals may be documented in an alternate sectionGoals may be documented in an alternate section FOR RECORDS PERTAINING TO PATIENTS WHO ARE OR HAVE BEEN ENROLLED IN A CHEMICAL DEPENDENCY/SUBSTANCEABUSE PROGRAM, SOME INFORMATION MAY BE OMITTED. This clinical summary was aggregated from multiple sources. Caution should be exercised in using it in the provision of clinical care. This summary normalizes information from multiple sources, and as a consequence, information in this document may materially change the coding, format and clinical context of patient data. In addition, data may be omitted in some cases. CLINICAL DECISIONS SHOULD BE BASED ON THE PRIMARY CLINICAL RECORDS. [facility] [employer] are family too [facility]. provides no warranty or guarantee of the accuracy or completeness of information in this document.
== END 2025-04-25 13:28 | disposition home or self-care (01) ==
LOC: ED 14:33 → PCU 14:39
PROVIDERS: Admitting Provider Internal Medicine; Emergency Provider Emergency Medicine; PCP Internal Medicine; Visit Provider Internal Medicine
DX: A08.4 Viral intestinal infection, unspecified (principal); E11.65 Type 2 diabetes mellitus with hyperglycemia; E86.0 Dehydration; Z16.12 Extended spectrum beta lactamase (ESBL) resistance; E87.6 Hypokalemia; B96.20 Unspecified Escherichia coli [E. coli] as the cause of diseases classified elsewhere; Z66 Do not resuscitate; K74.02 Hepatic fibrosis, advanced fibrosis; I10 Essential (primary) hypertension; K76.0 Fatty (change of) liver, not elsewhere classified; I25.10 Atherosclerotic heart disease of native coronary artery without angina pectoris; I95.1 Orthostatic hypotension; K21.9 Gastro-esophageal reflux disease without esophagitis; R74.01 Elevation of levels of liver transaminase levels; Z79.899 Other long term (current) drug therapy; N30.90 Cystitis, unspecified without hematuria; R53.1 Weakness
CPT/HCPCS: 36415; 71045; 74177; 80048; 80053; 80076; 81001; 82728; 82962; 83540; 83550; 83630; 83735; 84100; 84443; 85025; 85045; 87086; 87088; 87177; 87186; 87209; 87493; 87506; 87631; 93005; 96361; 96365; 96366; 96367; 96372; 96375; 99221; 99285; Q9967; A4216; G0378; J2405